=== PATIENT | female | born 1955 | race Hispanic/Latino ===

== ENCOUNTER 2017-12-28 07:41 | Emergency (ER) | payer MEDICARE ==
[~2017-12-28] VITALS: Ht 160 cm; Wt 82.1 kg
[~2017-12-28 07:41] MED LIST: COUMADIN10 MG PO; DILANTIN100 MG PO; HUMULIN-R100 UNITS/; LANTUS100 UNITS/ SC; OXYCONTIN30 MG PO; PHENOBARBITAL30 MG PO; PHENOBARBITAL60 MG PO; XARELTO10 MG PO; ZOLOFT25 MG; ZOLOFT50 MG PO
--- OUTSIDE RECORDS SUMMARY | 2017-12-28 07:47 | XMS REPORT | CCD ---
Author Author Auto Generated Organization [facility] Address Unknown Phone Unavailable Care Team Providers Care Photostat Operator Helper Name Role Phone Marta España CP Allergies, Adverse Reactions, Alerts Substance Reaction Status NKDA Canceled prochlorperazine Active Problem List Condition Effective Dates Status Anxiety Active Back pain Active Chest pain Active Deep vein thrombosis Active Depression Active Dysmenorrhea Active Fracture of knee-cap Active Hay fever Active Incontinence Active Migraine Active Nausea and vomiting Active Neck pain Active Osteoarthritis Active Panic disorder Active Pulmonary embolism Active Seizure Active Shoulder pain Active Stroke Active Suicide attempt Active UTI - Urinary tract infection Active Medications Medication Instructions Start Date End Date Status influenza virus 0.5 mL, Route: IM, Drug Form: SUSP, 05/31/2011 05/31/2011 Completed vaccine, inactivated Start date: 05/31/11 9:00:00, Stop date: 05/31/11 9:00:00 Benadryl Substitution Allowed 07/14/2011 Ordered Unknown Home Substitution Allowed 07/14/2011 Ordered Medication Dilantin Substitution Allowed 07/14/2011 Ordered Zanaflex Substitution Allowed 07/14/2011 Ordered hydromorphone 0.5 mg, 0.25 mL, Route: IVP, Drug 07/15/2011 07/15/2011 Completed form: INJ, ONCE, Priority: STAT, Start date: 07/15/11 0:02:00, Stop date: 07/15/11 0:02:00 Unknown Home Substitution Allowed 07/14/2011 Ordered Medication Lyrica Substitution Allowed 07/14/2011 Ordered ondansetron 4 mg, 2 mL, Route: IVP, Drug form: 07/14/2011 07/14/2011 Completed INJ, ONCE, Priority: STAT, Start date: 07/14/11 20:30:00, Stop date: 07/14/11 20:30:00 Unknown Home Substitution Allowed 07/14/2011 Ordered Medication ondansetron 4 mg, Route: IVP, Drug form: INJ, 07/14/2011 07/14/2011 Completed ONCE, Priority: STAT, Start date: 07/14/11 18:16:00, Stop date: 07/14/11 18:16:00 aspirin 325 mg 325 mg, 1 tab, Route: PO, Drug 07/14/2011 07/14/2011 Completed tablet form: TAB, ONCE, Priority: STAT, Start date: 07/14/11 17:49:00, Stop date: 07/14/11 17:49:00 Lovenox 40 mg/0.4 mL 40 mg, SUB-Q, Daily, 5 mL, 07/15/2011 Ordered subcutaneous Substitution Allowed solution Coumadin 10 mg oral 10 mg, 1 tab, PO, Daily, 30 tab, 07/14/2011 Ordered tablet Substitution Allowed, TAB Lovenox 80 mg/0.8 mL 80 mg, 0.8 ml, SUB-Q, Daily, 4 mL, 07/14/2011 07/19/2011 Ordered subcutaneous Substitution Allowed, SOLN solution Lovenox 80 mg, 0.8 mL, Route: IV, Drug 07/14/2011 07/15/2011 Deleted form: INJ, ONCE, Start date: 07/14/11 23:02:00, Stop date: 07/14/11 23:02:00 hydromorphone 1 mg, 0.5 mL, Route: IVP, Drug 07/14/2011 07/14/2011 Completed form: INJ, ONCE, Priority: STAT, Start date: 07/14/11 17:28:00, Stop date: 07/14/11 17:28:00 [place] 5/325 oral 2 tab, Route: PO, Drug Form: TAB, 07/14/2011 07/14/2011 Completed tablet ONCE, Start date: 07/14/11 19:23:00, Stop date: 07/14/11 19:23:00 Lovenox 80 mg, Route: SUB-Q, ONCE, Start 07/15/2011 07/15/2011 Completed date: 07/15/11 0:07:00, Stop date: 07/15/11 0:07:00 Immunizations Vaccine Date Status influenza virus vaccine, inactivated 05/31/2011 Not Done Vital Signs Most recent to oldest [Reference Range]: 1 Height 160.02 cm (07/14/2011 16:45:00) Weight 72.727 kg (07/14/2011 16:45:00) Results CHEMISTRY Most recent to oldest [Reference Range]: 1 Sodium Lvl [135-145 mEq/L] 139 mEq/L (07/14/2011:29:00) Potassium Lvl [3.5-5.1 mEq/L] 4.2 mEq/L (07/14/2011::00) Chloride Lvl [95-109 mEq/L] 102 mEq/L (07/14/2011::00) CO2 [24-32 mEq/L] 25 mEq/L (07/14/2011::00) AGAP [10.0-20.0 mEq/L] 16.2 mEq/L (07/14/2011::00) Creatinine Lvl [0.5-1.4 mg/dL] 0.7 mg/dL (07/14/2011::00) BUN [7-22 mg/dL] 18 mg/dL (07/14/2011::00) Glucose Lvl [70-99 mg/dL] 95 mg/dL 1 (07/14/2011::00) Calcium Lvl [8.5-10.5 mg/dL] 9.0 mg/dL (07/14/2011:29:00) Lipase Lvl [73-393 U/L] 107 U/L (07/14/2011:30:00) Total CK [12-191 U/L] 39 U/L (07/14/2011::) Troponin-I [0.00-0.40 ng/mL] <0.02 ng/mL (07/14/2011::00) Myoglobin [25-72 ng/mL] 10 ng/mL *LOW* (07/14/2011:29:00) Etoh (%) <.003 % 2 *NA* (07/14/2011::) Ethanol Lvl <3 mg/dL 3 *NA* (07/14/2011:29:00) 1Interpretive Data: Adult reference range values reflect the clinical guidelinesof the [place] [employer]. 2Interpretive Data: Negative Range: <0.003%Toxic Range: >0.25% 3Interpretive Data: Negative Range: <3 mg/dLToxic Range: >250 mg/dL HEMATOLOGY Most recent to oldest [Reference Range]: 1 WBC [3.7-10.4 K/CMM] 14.1 K/CMM *HI* (07/14/2011::00) RBC [4.20-5.40 M/CMM] 4.29 M/CMM (07/14/2011::) Hgb [12.0-16.0 g/dL] 13.6 g/dL (07/14/2011::) Hct [36.0-48.0 %] 39.7 % (07/14/2011:) MCV [81.0-99.0 fL] 92.5 fL (07/14/2011::) MCH [27.0-31.0 pg] 31.7 pg *HI* (07/14/2011) MCHC [32.0-36.0 g/dL] 34.3 g/dL (07/14/2011::) RDW [11.5-14.5 %] 13.1 % (07/14/2011::) Platelet [133-450 K/CMM] 286 K/CMM (07/14/2011::00) MPV [7.4-10.4 fL] 8.0 fL (07/14/2011::) Segs [45.0-75.0 %] 74.2 % (07/14/2011::) Lymphocytes [20.0-40.0 %] 20.3 % (07/14/2011::) Monocytes [2.0-12.0 %] 3.9 % (07/14/2011::) Eosinophils [0.0-4.0 %] 1.6 % (07/14/2011::) Basophils [0.0-1.0 %] 0.0 % (07/14/2011::) Segs-Bands # [1.5-8.1 K/CMM] 10.5 K/CMM *HI* (07/14/2011 17:29:00) Lymphocytes # [1.0-5.5 K/CMM] 2.9 K/CMM (07/14/2011 17:29:00) Monocytes # [0.0-0.8 K/CMM] 0.5 K/CMM (07/14/2011 17:29:00) Eosinophils # [0.0-0.5 K/CMM] 0.2 K/CMM (07/14/2011 17:29:00) Basophils # [0.0-0.2 K/CMM] 0.0 K/CMM (07/14/2011 17:29:00) RBC Morph Normal (07/14/2011 17:29:00) Plt Morph Normal (07/14/2011 17:29:00) PT [12.0-14.7 seconds] 12.5 seconds (07/14/2011 17:29:00) INR [0.85-1.17] 0.93 4 (07/14/2011 17:29:00) PTT [22.9-35.8 seconds] 22.9 seconds 5 (07/14/2011 17:29:00) 4Interpretive Data: RECOMMENDED RANGES FOR PROTIME INR: 2.0-3.0 for most medical and surgical thromboembolic states. 2.5-3.5 for artificial heart valves and recurrent embolism.INR SHOULD BE USED ONLY FOR PATIENTS ON STABLE ANTICOAGULANT THERAPY. 5Interpretive Data: Heparin Therapeutic Range: 57 - 92 Seconds IMMUNOLOGY Most recent to oldest [Reference Range]: 1 CDC-HIV 1/2 Ab [Negative] Negative *NA* (07/14/2011 16:52:00)
--- OUTSIDE RECORDS SUMMARY | 2017-12-28 07:47 | XMS REPORT | Summary of Care ---
Author Author [facility] Organization [facility] Address Unknown Phone Unavailable Encounter [facility] Vaibhav(ROBB) [id number] Date(s): 05/28/16 - 05/29/16 [facility] [address] [place] [address]- [phone] Discharge Diagnosis: Urinary tract infection Discharge Disposition: Home or Self Care Attending Physician: Eugene Alvarez DO Vital Signs 1 2 3 Most recent to oldest [Reference Range]: 160.02 cm (05/28/16 5:52 PM) Height 98.4 DegF (05/29/16 2:05 AM) 98.6 DegF (05/28/16 5:52 PM) Temperature Oral [96.4-99.1 DegF] 117/61 mmHg (05/29/16 2:05 AM) 127/65 mmHg (05/28/16 10:33 PM) 144/67 mmHg *HI* (05/28/16 9:31 PM) Blood Pressure [90-140/60-90 mmHg] 16 BRMIN (05/29/16 2:05 AM) 15 BRMIN (05/28/16 10:33 PM) 15 BRMIN (05/28/16 9:31 PM) Respiratory Rate [14-20 BRMIN] 60 bpm (05/28/16 9:31 PM) 77 bpm (05/28/16 5:52 PM) Peripheral Pulse Rate [60-100 bpm] 63.636 kg (05/28/16 5:52 PM) Weight 24.85 m2 (05/28/16 5:52 PM) Body Mass Index Problem List Condition Effective Dates Status Health Status Informant Anxiety(Confirmed) Active Back pain(Confirmed) Active Chest Active pain(Confirmed) Deep vein Active thrombosis(Confirmed ) Depression(Confirmed Active ) Diabetes(Confirmed) Resolved Dysmenorrhea(Confirm Active ed) Epileptic Resolved seizure(Confirmed) Fracture of Active knee-cap(Confirmed) Hay fever(Confirmed) Active HTN Resolved (hypertension)(Confi rmed) Incontinence(Confirm Active ed) Colon Resolved cancer(Confirmed) Migraine(Confirmed) Active Nausea and Active Acute ; vomiting(Confirmed) Neck pain(Confirmed) Active Osteoarthritis(Confi Active rmed) Panic Active disorder(Confirmed) Pulmonary Active embolism(Confirmed) Seizure(Confirmed) Active Shoulder Active pain(Confirmed) Sleep Resolved apnea(Confirmed) Stroke(Confirmed) Active Suicide Active attempt(Confirmed) UTI - Urinary tract Active infection(Confirmed) Allergies, Adverse Reactions, Alerts Substance Reaction Severity Status prochlorperazine Active Medications cefTRIAXone 1 gm, Route: IVPB, Drug form: PDR/INJ, ONCE, Dosing Weight 63.636, kg, Priority: STAT, Start date: 05/28/16 23:04:00 CDT, Stop date: 05/28/16 23:04:00 CDT Start Date: 05/28/16 Stop Date: 05/28/16 Status: Completed ciprofloxacin 400 mg, Route: IVPB, ONCE, Dosing Weight 63.636, kg, Priority: STAT, Start date: 05/28/16 23:59:00 CDT, Stop date: 05/28/16 23:59:00 CDT Start Date: 05/28/16 Stop Date: 05/29/16 Status: Completed ciprofloxacin 500 mg oral tablet 500 mg=1 tab, PO, Q12H, X 10 day, # 20 tab, 0 Refill(s) Start Date: 05/29/16 Stop Date: 06/08/16 Status: Ordered diphenhydrAMINE 25 mg, Route: IVP, ONCE, Dosing Weight 63.636, kg, Priority: STAT, Start date: 0 05/28/16 23:59:00 CDT, Stop date: 05/28/16 23:59:00 CDT Start Date: 05/28/16 Stop Date: 05/29/16 Status: Completed morphine Sulfate 4 mg, Route: IVP, ONCE, Dosing Weight 63.636, kg, Priority: STAT, Start date: 20:49:00 CDT, Stop date: 05/28/16 20:49:00 CDT Start Date: 05/28/16 Stop Date: 05/28/16 Status: Completed morphine Sulfate 4 mg, Route: IVP, ONCE, Dosing Weight 63.636, kg, Priority: STAT, Start date: 22:22:00 CDT, Stop date: 05/28/16 22:22:00 CDT Start Date: 05/28/16 Stop Date: 05/28/16 Status: Completed ondansetron 4 mg, Route: IVP, Drug form: INJ, ONCE, Dosing Weight 63.636, kg, Priority: STAT , Start date: 05/28/16 20:49:00 CDT, Stop date: 05/28/16 20:49:00 CDT Start Date: 05/28/16 Stop Date: 05/28/16 Status: Completed ondansetron 4 mg, Route: IVP, Drug form: INJ, ONCE, Dosing Weight 63.636, kg, Priority: STAT , Start date: 05/28/16 22:22:00 CDT, Stop date: 05/28/16 22:22:00 CDT Start Date: 05/28/16 Stop Date: 05/28/16 Status: Completed predniSONE 60 mg, Route: PO, Drug form: TAB, ONCE, Dosing Weight 63.636, kg, Priority: STAT , Start date: 05/28/16 23:59:00 CDT, Stop date: 05/28/16 23:59:00 CDT Start Date: 05/28/16 Stop Date: 05/29/16 Status: Completed Saline Flush 0.9% 10 mL, Route: IVP, Drug Form: INJ, Dosing Weight 72.727, kg, PRN, PRN Line Flush , Start date: 05/28/16 17:54:00 CDT, Duration: 30 day, Stop date: 06/27/16 17:53 :00 CDT Notes: (Same as: BD Posiflush) Start Date: 05/28/16 Stop Date: 05/29/16 Status: Discontinued tramadol 50 mg oral tablet 50 mg, Route: PO, Drug form: TAB, ONCE, Dosing Weight 63.636, kg, Priority: STAT , Start date: 05/29/16 1:57:00 CDT, Stop date: 05/29/16 1:57:00 CDT Start Date: 05/29/16 Stop Date: 05/29/16 Status: Completed tramadol 50 mg oral tablet 50 mg=1 tab, PO, Q12H, PRN Pain, X 10 day, # 20 tab, 0 Refill(s) Start Date: 05/29/16 Stop Date: 06/08/16 Status: Ordered Results ELECTROLYTES Most recent to 1 oldest [Reference Range]: Sodium Lvl [135-145 141 mEq/L mEq/L] (05/28/16 6:19 PM) Potassium Lvl 3.3 mEq/L [3.5-5.1 mEq/L] *LOW* (05/28/16 6:19 PM) Chloride Lvl [95-109 104 mEq/L mEq/L] (05/28/16 6:19 PM) CO2 [24-32 mEq/L] 23 mEq/L *LOW* (05/28/16 6:19 PM) AGAP [10.0-20.0 17.3 mEq/L mEq/L] (05/28/16 6:19 PM) CHEM PANEL Most recent to 1 oldest [Reference Range]: Creatinine Lvl 0.90 mg/dL [0.50-1.40 mg/dL] (05/28/16 6:19 PM) eGFR 70 mL/min/1.73m2 1 *NA* (05/28/16 6:19 PM) BUN [7-22 mg/dL] 22 mg/dL (05/28/16 6:19 PM) B/C Ratio [6-25] 24 (05/28/16 6:19 PM) Glucose Lvl [70-99 152 mg/dL mg/dL] *HI* (05/28/16 6:19 PM) Total Protein 7.8 g/dL [6.4-8.4 g/dL] (05/28/16 6:19 PM) Albumin Lvl [3.5-5.0 3.4 g/dL g/dL] *LOW* (05/28/16 6:19 PM) Globulin [2.7-4.2 4.4 g/dL g/dL] *HI* (05/28/16 6:19 PM) A/G Ratio [0.7-1.6] 0.8 (05/28/16 6:19 PM) Calcium Lvl 8.6 mg/dL [8.5-10.5 mg/dL] (05/28/16 6:19 PM) ALT [0-65 unit/L] 21 unit/L (05/28/16 6:19 PM) AST [0-37 unit/L] 15 unit/L (05/28/16 6:19 PM) Alk Phos [39-136 90 unit/L unit/L] (05/28/16 6:19 PM) Bili Total [0.2-1.3 0.3 mg/dL mg/dL] (05/28/16 6:19 PM) Lipase Lvl [73-393 83 unit/L unit/L] (05/28/16 6:19 PM) 1Result Comment: The eGFR is calculated using the CKD-EPI formula. In most young, healthy individuals the eGFR will be >90 mL/min/1.73m2. The eGFR declines with age. An eGFR of 60-89 may be normal in some populations, particularly the elderly, for whom the CKD-EPI formula has not been extensively validated. Use of the eGFR is not recommended in the following populations: Individuals with unstable creatinine concentrations, including patients and those with serious co-morbid conditions. Patients with extremes in muscle mass or diet. The data above are obtained from the National Kidney Disease Education Program ( NKDEP) which additionally recommends that when the eGFR is used in patients with extremes of body mass index for purposes of drug dosing, the eGFR should be mul tiplied by the estimated BMI. CARDIAC ENZYMES Most recent to 1 oldest [Reference Range]: Total CK [12-191 141 unit/L unit/L] (05/28/16 6:19 PM) CK MB [0.5-3.6 1.8 ng/mL ng/mL] (05/28/16 6:19 PM) CK MB Index 1.3 [0.0-2.5] (05/28/16 6:19 PM) Troponin-I <0.02 ng/mL [0.00-0.40 ng/mL] (05/28/16 6:19 PM) URINE AND STOOL Most recent to 1 oldest [Reference Range]: UA Turbidity [Clear] Marked *ABN* (05/28/16 9:30 PM) UA Color [Yellow] Yellow *NA* (05/28/16 9:30 PM) UA pH [5.0-8.0] 6.0 (4/9/17 9:30 PM) UA Spec Grav 1.018 [<=1.030] (05/28/16 9:30 PM) UA Glucose [Negative Negative mg/dL mg/dL] *NA* (05/28/16 9:30 PM) UA Blood [Negative] Large *ABN* (05/28/16 9:30 PM) UA Ketones [Negative Negative mg/dL mg/dL] *NA* (05/28/16 9:30 PM) UA Protein [Negative 30 mg/dL mg/dL] *ABN* (05/28/16 9:30 PM) UA Urobilinogen <=1.0 mg/dL [0.1-1.0 mg/dL] *NA* (05/28/16 9:30 PM) UA Bili [Negative] Negative *NA* (05/28/16 9:30 PM) UA Leuk Est Large [Negative] *ABN* (05/28/16 9:30 PM) UA Nitrite Positive [Negative] *ABN* (05/28/16 9:30 PM) UA WBC [0-5 /HPF] 10 /HPF *HI* (05/28/16 9:30 PM) UA RBC [0-2 /HPF] >182 /HPF *HI* (05/28/16 9:30 PM) UA Bacteria [None Many /HPF Seen /HPF] *ABN* (05/28/16 9:30 PM) UA Sq Epi [Few /LPF] Many /LPF *ABN* (05/28/16 9:30 PM) UA Mucus [None Seen Few /LPF /LPF] *NA* (05/28/16 9:30 PM) HEMATOLOGY Most recent to 1 oldest [Reference Range]: WBC [3.7-10.4 K/CMM] 9.3 K/CMM (05/28/16 6:19 PM) RBC [4.20-5.40 4.21 M/CMM M/CMM] (05/28/16 6:19 PM) Hgb [12.0-16.0 g/dL] 13.3 g/dL (05/28/16 6:19 PM) Hct [36.0-48.0 %] 38.9 % (05/28/16 6:19 PM) MCV [80.0-98.0 fL] 92.4 fL (05/28/16 6:19 PM) MCH [27.0-31.0 pg] 31.6 pg *HI* (05/28/16:19 PM) MCHC [32.0-36.0 34.2 g/dL g/dL] (05/28/16 6:19 PM) RDW [11.5-14.5 %] 13.3 % (05/28/16:19 PM) Platelet [133-450 258 K/CMM K/CMM] (05/28/16:19 PM) MPV [7.4-10.4 fL] 8.2 fL (05/28/16:19 PM) Segs [45.0-75.0 %] 57.8 % (05/28/16:19 PM) Lymphocytes 31.0 % [20.0-40.0 %] (05/28/16:19 PM) Monocytes [2.0-12.0 5.6 % %] (05/28/16:19 PM) Eosinophils [0.0-4.0 4.7 % %] *HI* (05/28/16:19 PM) Basophils [0.0-1.0 0.9 % %] (05/28/16:19 PM) Segs-Bands # 5.4 K/CMM [1.5-8.1 K/CMM] (05/28/16 6:19 PM) Lymphocytes # 2.9 K/CMM [1.0-5.5 K/CMM] (05/28/16 6:19 PM) Monocytes # [0.0-0.8 0.5 K/CMM K/CMM] (05/28/16 6:19 PM) Eosinophils # 0.4 K/CMM [0.0-0.5 K/CMM] (05/28/16 6:19 PM) Basophils # [0.0-0.2 0.1 K/CMM K/CMM] (05/28/16 6:19 PM) PT [12.0-14.7 13.9 seconds seconds] (05/28/16:19 PM) INR [0.85-1.17] 1.05 (05/28/16 6:19 PM) PTT [22.9-35.8 29.9 seconds seconds] (05/28/16 6:19 PM) Immunizations Given and Recorded Vaccine Date Status Refusal Reason influenza virus vaccine, inactivated 11/29/11 Given Procedures Procedure Date Related Diagnosis Body Site section Social History Social History Type Response Smoking Status Never smoker; Exposure to Tobacco Smoke None; Cigarette Smoking Last 365 Days No; Reg Smoking Cessation Counseling No Assessment and Plan No data available for this section
--- OUTSIDE RECORDS SUMMARY | 2017-12-28 07:47 | XMS REPORT ---
Author [facility] Address Unknown Phone Unavailable Care Team Providers Care Aeronautics Teacher Name Role Phone Unavailable Unavailable Payers Payer Name Policy Type Policy Number Effective Date Expiration Date Problems This patient has no known problems. Allergies, Adverse Reactions, Alerts Allergy Name Allergy Type Status Severity Reaction(s) Onset Date Inactive Date Treating Clinician Comments No Known Allergies DA Active [place] 2017-12-26 00:00:00 prochlorperazine maleate DA Active [place] 2017-10-18 00:00:00 ceftriaxone DA Active [place] 2017-10-18 00:00:00 Medications This patient has no known medications. Encounters Start Date/Time End Date/Time Encounter Type Admission Type Attending Clinicians Care Facility Care Department Encounter ID 2016-12-28 15:47:42 2016-12-28 15:47:42 Emergency [facility] [id number] 2016-12-28 13:14:25 2016-12-28 13:14:25 Emergency [facility] [id number] 2016-12-28 13:10:44 2016-12-28 13:10:44 Emergency [facility] [id number] 2016-12-28 12:55:27 2016-12-28 12:55:27 Emergency [facility] [id number]
[2017-12-28] MEDS ORDERED: HYDROCODONE/APAP 10MG-325MG TAB PO NR (08:15)
[2017-12-28] MEDS ORDERED: SODIUM CHLORIDE 0.9% 500ML 500 ML IV ONE (08:15)
[2017-12-28 08:39] LABS: BASOPHILS # (AUTO) 0.1 (0.0-0.1); BASOPHILS % 0.7 % (0.0-1.0); EOSINOPHILS # (AUTO) 0.4 (0.0-0.4); EOSINOPHILS % 6.6 % (0.0-6.0); HEMATOCRIT 41.2 % (34.2-44.1); HEMOGLOBIN 13.7 g/dL (12.0-16.0); LYMPHOCYTES # (AUTO) 3.1 (1.0-3.2); LYMPHOCYTES % 46.6 % (18.0-39.1); MEAN CORPUSCULAR HEMOGLOBIN 31.7 pg (28-32); MEAN CORPUSCULAR HGB CONC 33.3 g/dL (31-35); MEAN CORPUSCULAR VOLUME 95.4 fL (81-99); MONOCYTES # (AUTO) 0.4 (0.2-0.8); MONOCYTES % 6.4 % (4.4-11.3); NEUTROPHILS # (AUTO) 2.6 (2.1-6.9); NEUTROPHILS % 39.6 % (38.7-80.0); PLATELET COUNT 262 x10e3/uL (140-360); RED BLOOD COUNT 4.32 x10e6/uL (3.6-5.1); RED CELL DISTRIBUTION WIDTH 12.6 % (11.7-14.4)
[2017-12-28 08:59] LABS: ALANINE AMINOTRANSFERASE 17 IU/L (0-55); ALBUMIN 3.5 g/dL (3.5-5.0); ALBUMIN/GLOBULIN RATIO 0.8 (0.8-2.0); ALKALINE PHOSPHATASE 73 IU/L (40-150); BLOOD UREA NITROGEN 16 mg/dL (7-26); BUN/CREATININE RATIO 21 (6-25); CALCIUM 9.4 mg/dL (8.4-10.2); CARBON DIOXIDE 22 mmol/L (22-29); CHLORIDE 107 mmol/L (98-107); CREATINE KINASE 118 IU/L (29-168); CREATININE, SERUM 0.78 mg/dL (0.57-1.11); EST GLOMERULAR FILTRATION RATE > 60 ML/MIN (60-); GLUCOSE 145 mg/dL (74-118); MAGNESIUM 2.3 MG/DL (1.3-2.1); SODIUM 139 mmol/L (136-145)
[2017-12-28 09:18] LABS: INR 2.33; PROTHROMBIN TIME 27.3 seconds (11.9-14.5)
[2017-12-28 09:19] LABS: PARTIAL THROMBOPLASTIN TIME 31.9 seconds (23.8-35.5)
[2017-12-28] MEDS ORDERED: HYDROCODON-ACE1 EAC9 (09:23)
[2017-12-28] MEDS ORDERED: PHENAZOPYRIDIN100 MG PO (09:23)
[2017-12-28] MEDS ORDERED: MAGNESIUM OXID400 MG PO (09:23)
[2017-12-28] MEDS ORDERED: AMBIEN10 MG PO (09:23)
[2017-12-28] MEDS ORDERED: PAROXETINE HCL20 MG PO (09:23)
[2017-12-28] MEDS ORDERED: PANTOPRAZOLE SO40 MG PO (09:23)
--- NOTE | 2017-12-28 09:47 | Diagnostic Imaging Report ---
PROCEDURE: X-RAY CHEST, TWO VIEWS COMPARISON: None. INDICATIONS: CHEST PAIN FINDINGS: LUNGS: No consolidations or edema. PLEURA: No effusions or pneumothorax. HEART & MEDIASTINUM: The heart is within normal size-limits. Left-sided subclavian approach chest port in appropriate location. BONES & SOFT TISSUES: No acute findings. Degenerative changes of these line. CONCLUSION: No acute thoracic abnormality. Ren Alexandre D.O. Dictated by: Ren Alexandre D.O. on 12/28/2017 at 9:55 Electronically approved by: Ren Alexandre D.O. on 12/28/2017 at 9:55
[2017-12-28 11:03] LABS: CLARITY,URINE SL CLOUDY (CLEAR); COLOR,URINE YELLOW (YELLOW)
[2017-12-28 11:04] LABS: BILIRUBIN,URINE NEGATIVE (NEGATIVE); KETONES,URINE NEGATIVE (NEGATIVE); LEUKOCYTE ESTERASE ,URINE 1+ (NEGATIVE); NITRITE,URINE POSITIVE (NEGATIVE); PROTEIN,URINE DIPSTICK NEGATIVE (NEGATIVE); URINE UROBILINOGEN 0.2 mg/dL (0.2 - 1)
--- NOTE | 2017-12-28 11:46 | Diagnostic Imaging Report ---
EXAMINATION: CT scan of the chest with contrast. TECHNIQUE: Helical CT images of the chest were performed from the lung apices to the level of the adrenal glands after the intravenous administration of 100 cc of Isovue 300. Coronal and sagittal reformatted images were obtained.Dose modulation, iterative reconstruction, and/or weight based adjustment of the mA/kV was utilized to reduce the radiation dose to as low as reasonably achievable. COMPARISON: None. CLINICAL HISTORY:Chest pain and fall DISCUSSION: LINES/TUBES: None. LUNGS AND AIRWAYS: Mosaic attenuation likely due to hypoperfusion. No concerning nodule or mass. No consolidation. No pulmonary embolism PLEURA: No pneumothorax or pleural effusions. HEART AND MEDIASTINUM: The thyroid gland is normal. The heart and pericardium are within normal limits. LYMPH NODES: There is no mediastinal, hilar or axillary lymphadenopathy. ABDOMEN: Refer to additional report. BONES AND SOFT TISSUES: No acute bony abnormalities. IMPRESSION: No pulmonary embolism. Signed by: Dr. Se Ruiz M.D. on 12/28/2017 11:43 AM
[2017-12-28 11:48] LABS: BACTERIA,URINE MODERATE /HPF; EPITHELIAL CELLS,URINE FEW /LPF; RBC,URINE 21-50 /HPF (0-5)
--- NOTE | 2017-12-28 11:56 | Diagnostic Imaging Report ---
EXAMINATION: CT of the abdomen and pelvis with contrast. TECHNIQUE: Helical CT images of the abdomen and pelvis were performed from the lung bases to the lesser trochanters after the intravenous administration of 150 cc of Isovue 300 and the oral administration of Redicat. Coronal and sagittal reformatted images were obtained.Dose modulation, iterative reconstruction, and/or weight based adjustment of the mA/kV was utilized to reduce the radiation dose to as low as reasonably achievable. COMPARISON: None. CLINICAL HISTORY:Flank pain and hematuria DISCUSSION: ABDOMEN/PELVIS: LOWER THORAX:Unremarkable. HEPATOBILIARY: No focal hepatic lesions. No intra-or extrahepatic biliary ductal dilation. Cholecystectomy. SPLEEN: No splenomegaly. PANCREAS: No focal masses or ductal dilatation. ADRENALS: No adrenal nodules. KIDNEYS/URETERS: No hydronephrosis, stones, or solid mass lesions. PELVIC ORGANS/BLADDER: Hysterectomy. PERITONEUM/RETROPERITONEUM: No free air or fluid. LYMPH NODES: No intra-abdominal, retroperitoneal, pelvic or inguinal lymphadenopathy. VESSELS: Minimal vascular calcifications. GI TRACT: No distention or wall thickening. BONES AND SOFT TISSUE: No bony destructive lesions. No soft tissue abnormalities. IMPRESSION: No acute CT finding. Signed by: Dr. Se Ruiz M.D. on 12/28/2017 11:53 AM
[2017-12-28] MEDS ORDERED: IOPAMIDOL 370 MG/ML 200 ML INFUS..BTL INJ ONE (12:08)
[2017-12-28] MEDS ORDERED: SODIUM CHLORIDE 0.9% 50ML 50 ML ONE (12:08)
[2017-12-28 13:35] VITALS: BP 136/78
== END 2017-12-28 13:45 | disposition home or self-care (01) ==
LOC: ER 07:41
DX: R07.89 Other chest pain (principal); N30.91 Cystitis, unspecified with hematuria; I10 Essential (primary) hypertension; E11.9 Type 2 diabetes mellitus without complications; Z85.038 Personal history of other malignant neoplasm of large intestine
CPT/HCPCS: 36415; 71046; 71260; 74177; 80053; 80185; 81001; 82550; 82553; 83735; 84484; 85025; 85610; 85730; 87086; 93005; 99284; J7040; Q9967

== ENCOUNTER 2018-03-28 11:50 | Inpatient (IN) | payer MEDICARE ==
[~2018-03-28] VITALS: Ht 160 cm; Wt 78.1 kg
[~2018-03-28 11:50] MED LIST changes: +AMBIEN10 MG PO; +HYDROCODON-ACE1 EAC9 PO; +MAGNESIUM OXID400 MG PO; +PANTOPRAZOLE SO40 MG PO; +PAROXETINE HCL20 MG PO; +PHENAZOPYRIDIN100 MG PO
--- OUTSIDE RECORDS SUMMARY | 2018-03-28 11:54 | XMS REPORT | Continuity of Care Document ---
Author Author [facility] Interface Address Unknown Phone Unavailable Problems Problem Status Onset Date Classification Date Reported Comments Source COUMADIN TOXICITY Active 01/10/2018 [facility] NOSEBLEED/COUGHING UP BLOOD Active 01/10/2018 [facility] Discharge Diagnosis: Urinary tract infection 05/29/2016 06/01/2016 [facility] ABD PAIN Active 05/28/2016 [facility] SENT BY Active 07/14/2011 [facility] Anxiety Active Problem 07/17/2011 [facility] Back pain Active Problem 07/17/2011 [facility] Chest pain Active Problem 07/17/2011 [facility] Deep vein thrombosis Active Problem 07/17/2011 [facility] Depression Active Problem 07/17/2011 [facility] Dysmenorrhea Active Problem 07/17/2011 [facility] Fracture of knee-cap Active Problem 07/17/2011 [facility] Hay fever Active Problem 07/17/2011 [facility] Incontinence Active Problem 07/17/2011 [facility] Migraine Active Problem 07/17/2011 [facility] Nausea and vomiting Active Problem 07/17/2011 [facility] Neck pain Active Problem 07/17/2011 [facility] Osteoarthritis Active Problem 07/17/2011 [facility] Panic disorder Active Problem 07/17/2011 [facility] Pulmonary embolism Active Problem 07/17/2011 [facility] Seizure Active Problem 07/17/2011 [facility] Shoulder pain Active Problem 07/17/2011 [facility] Stroke Active Problem 07/17/2011 [facility] Suicide attempt Active Problem 07/17/2011 [facility] UTI - Urinary tract infection Active Problem 07/17/2011 [facility] Anxiety Active Problem 06/01/2016 [facility] Back pain Active Problem 06/01/2016 [facility] Chest pain Active Problem 06/01/2016 [facility] Deep vein thrombosis Active Problem 06/01/2016 [facility] Depression Active Problem 06/01/2016 [facility] Diabetes Resolved Problem 06/01/2016 [facility] Dysmenorrhea Active Problem 06/01/2016 [facility] Epileptic seizure Resolved Problem 06/01/2016 [facility] Fracture of knee-cap Active Problem 06/01/2016 [facility] Hay fever Active Problem 06/01/2016 [facility] HTN (<span ID="[id number]</span>) Resolved Problem 06/01/2016 [facility] Incontinence Active Problem 06/01/2016 [facility] Colon cancer Resolved Problem 06/01/2016 [facility] Migraine Active Problem 06/01/2016 [facility] Nausea and vomiting Active Problem 06/01/2016 [facility] Neck pain Active Problem 06/01/2016 [facility] Osteoarthritis Active Problem 06/01/2016 [facility] Panic disorder Active Problem 06/01/2016 [facility] Pulmonary embolism Active Problem 06/01/2016 [facility] Seizure Active Problem 06/01/2016 [facility] Shoulder pain Active Problem 06/01/2016 [facility] Sleep apnea Resolved Problem 06/01/2016 [facility] Stroke Active Problem 06/01/2016 [facility] Suicide attempt Active Problem 06/01/2016 [facility] UTI - Urinary tract infection Active Problem 06/01/2016 [facility] POISONING BY ANTICOAGULANTS, ACCIDENTAL, Active [facility] Medications Medication Details Route Status Patient Instructions Ordering Provider Order Date Source tramadol hydrochloride 50 MG Oral Tablet 50 mg=1 tab, PO, Q12H, PRN Pain, X 10 day, # 20 tab, 0 Refill(s) Active 05/29/2016 [facility] tramadol hydrochloride 50 MG Oral Tablet 50 mg, Route: PO, Drug form: TAB, ONCE, Dosing Weight 63.636, kg, Priority: STAT, Start date: 05/29/16 1:57:00 CDT, Stop date: 05/29/16 1:57:00 CDT Inactive 05/29/2016 [facility] ciprofloxacin 500 mg oral tablet 500 mg=1 tab, PO, Q12H, X 10 day, # 20 tab, 0 Refill(s) Active 05/29/2016 [facility] Diphenhydramine 25 mg, Route: IVP, ONCE, Dosing Weight 63.636, kg, Priority: STAT, Start date: 05/28/16 23:59:00 CDT, Stop date: 05/28/16 23:59:00 CDT No Longer Active 05/29/2016 [facility] Prednisone 60 mg, Route: PO, Drug form: TAB, ONCE, Dosing Weight 63.636, kg, Priority: STAT, Start date: 05/28/16 23:59:00 CDT, Stop date: 05/28/16 23:59:00 CDT No Longer Active 05/29/2016 [facility] Ciprofloxacin 400 mg, Route: IVPB, ONCE, Dosing Weight 63.636, kg, Priority: STAT, Start date: 05/28/16 23:59:00 CDT, Stop date: 05/28/16 23:59:00 CDT No Longer Active 05/29/2016 [facility] Ceftriaxone 1 gm, Route: IVPB, Drug form: PDR/INJ, ONCE, Dosing Weight 63.636, kg, Priority: STAT, Start date: 05/28/16 23:04:00 CDT, Stop date: 05/28/16 23:04:00 CDT Inactive 05/29/2016 [facility] Ondansetron 4 mg, Route: IVP, Drug form: INJ, ONCE, Dosing Weight 63.636, kg, Priority: STAT, Start date: 05/28/16 22:22:00 CDT, Stop date: 05/28/16 22:22:00 CDT Inactive 05/29/2016 [facility] Morphine 4 mg, Route: IVP, ONCE, Dosing Weight 63.636, kg, Priority: STAT, Start date: 05/28/16 22:22:00 CDT, Stop date: 05/28/16 22:22:00 CDT Inactive 05/29/2016 [facility] Ondansetron 4 mg, Route: IVP, Drug form: INJ, ONCE, Dosing Weight 63.636, kg, Priority: STAT, Start date: 05/28/16 20:49:00 CDT, Stop date: 05/28/16 20:49:00 CDT Inactive 05/29/2016 [facility] Morphine 4 mg, Route: IVP, ONCE, Dosing Weight 63.636, kg, Priority: STAT, Start date: 05/28/16 20:49:00 CDT, Stop date: 05/28/16 20:49:00 CDT Inactive 05/29/2016 [facility] Saline Flush 0.9% 10 mL, Route: IVP, Drug Form: INJ, Dosing Weight 72.727, kg, PRN, PRN Line Flush, Start date: 05/28/16 17:54:00 CDT, Duration: 30 day, Stop date: 06/27/16 17:53:00 CDTNotes: (Same as: BD Posiflush) No Longer Active 05/28/2016 [facility] Lovenox 40 mg/0.4 mL subcutaneous solution 40 mg, SUB-Q, Daily, 5 mL, Substitution Allowed SUB-Q Active [place] 07/15/2011 [facility] Lovenox 80 mg, Route: SUB-Q, ONCE, Start date: 07/15/11 0:07:00, Stop date: 07/15/11 0:07:00 SUB-Q No Longer Active [place] 07/15/2011 [facility] hydromorphone 0.5 mg, 0.25 mL, Route: IVP, Drug form: INJ, ONCE, Priority: STAT, Start date: 07/15/11 0:02:00, Stop date: 07/15/11 0:02:00 IVP No Longer Active [place] 07/15/2011 [facility] Coumadin 10 mg oral tablet 10 mg, 1 tab, PO, Daily, 30 tab, Substitution Allowed, TAB PO Active [place] 07/15/2011 [facility] Lovenox 80 mg/0.8 mL subcutaneous solution 80 mg, 0.8 ml, SUB-Q, Daily, 4 mL, Substitution Allowed, SOLN SUB-Q Active [place] 07/15/2011 [facility] Lovenox 80 mg, 0.8 mL, Route: IV, Drug form: INJ, ONCE, Start date: 07/14/11 23:02:00, Stop date: 07/14/11 23:02:00 IV No Longer Active [place] 07/15/2011 [facility] ondansetron 4 mg, 2 mL, Route: IVP, Drug form: INJ, ONCE, Priority: STAT, Start date: 07/14/11 20:30:00, Stop date: 07/14/11 20:30:00 IVP No Longer Active [place] 07/15/2011 [facility] Jerome 5/325 oral tablet 2 tab, Route: PO, Drug Form: TAB, ONCE, Start date: 07/14/11 19:23:00, Stop date: 07/14/11 19:23:00 PO No Longer Active [place] 07/15/2011 [facility] Benadryl Substitution Allowed Active 07/14/2011 [facility] Unknown Home Medication Substitution Allowed Active 07/14/2011 [facility] Dilantin Substitution Allowed Active 07/14/2011 [facility] Zanaflex Substitution Allowed Active 07/14/2011 [facility] Unknown Home Medication Substitution Allowed Active 07/14/2011 [facility] Lyrica Substitution Allowed Active 07/14/2011 [facility] Unknown Home Medication Substitution Allowed Active 07/14/2011 [facility] ondansetron 4 mg, Route: IVP, Drug form: INJ, ONCE, Priority: STAT, Start date: 07/14/11 18:16:00, Stop date: 07/14/11 18:16:00 IVP No Longer Active [place] 07/14/2011 [facility] aspirin 325 mg tablet 325 mg, 1 tab, Route: PO, Drug form: TAB, ONCE, Priority: STAT, Start date: 07/14/11 17:49:00, Stop date: 07/14/11 17:49:00 PO No Longer Active [place] 07/14/2011 [facility] hydromorphone 1 mg, 0.5 mL, Route: IVP, Drug form: INJ, ONCE, Priority: STAT, Start date: 07/14/11 17:28:00, Stop date: 07/14/11 17:28:00 IVP No Longer Active [place] 07/14/2011 [facility] influenza virus vaccine, inactivated 0.5 mL, Route: IM, Drug Form: SUSP, Start date: 05/31/11 9:00:00, Stop date: 05/31/11 9:00:00 IM No Longer Active [facility] 05/31/2011 [facility] Allergies, Adverse Reactions, Alerts Substance Category Reaction Severity Reaction type Status Date Reported Comments Source prochlorperazine Assertion Drug allergy Active [facility] Immunizations Immunization Date Given Site Status Last Updated Comments Source influenza virus vaccine, inactivated 11/29/2011 Right deltoid completed [facility] influenza virus vaccine, inactivated 05/31/2011 Not Given [facility] Results Order Name Results Value Reference Range Date Interpretation Comments Source Shoulder series DX Shoulder series DX Exam: Right Shoulder series DX Clinical Indication: - shoulder pain, history of gastric malignancy Comparison: None FINDINGS: 3 views of the right shoulder are performed. No acute fracture identified. The glenohumeral and acromioclavicular joints are anatomically aligned. Moderate degenerative changes present in the acromioclavicular joint. The visualized scapula and clavicle are unremarkable. The soft tissues are unremarkable. No radiopaque foreign body. IMPRESSION: 1. No acute osseous abnormality of the right shoulder. 2. Moderate AC joint degenerative arthropathy. SL: JCHILD-PC 01/12/2018 - - Read by: Dilshad Mathias MD Dictated Date/time: 01/12/18 19:22 Electronically Signed by: Dilshad Mathias MD 01/12/18 19:22 FINAL REPORT [facility] Brain wo contrast CT Brain wo contrast CT CT HEAD WITHOUT CONTRAST Clinical Indication: - fall, L CARROLL, anticoagulated. Comparison: 05/30/2011 TECHNIQUE: CT images were obtained from the foramen magnum to the vertex without the use of intravenous contrast on a multidetector CT. CT imaging was performed with exposure control parameters to reduce radiation dose. Coronal and sagittal reconstructions were obtained. CT radiation dose DLP: 982.59 mGy-cm FINDINGS: There is no hemorrhage, extra-axial fluid collection, overt mass, midline shift or hydrocephalus. Moderate mucosal thickening is noted within the bilateral maxillary, bilateral ethmoid and left frontal sinuses. The mastoid air cells are clear. The calvarium and skull base are intact.Mild left frontal scalp soft tissue inflammatory changes. If clinical concern persists for acute pathology further evaluation with MRI brain can be obtained if warranted. IMPRESSION: No CT evidence of acute intracranial abnormality. SL: [id number] 01/10/2018 - - Read by: Constantin Mcnair MD Dictated Date/time: 01/11/18 00:01 Electronically Signed by: Constantin Mcnair MD 01/11/18 00:09 FINAL REPORT [facility] Chest Pulmonary Embolism CTA Chest Pulmonary Embolism CTA CT ANGIOGRAM OF THE CHEST WITH RECONSTRUCTION DATED 01/10/2018. CLINICAL INDICATION: Worsening chest pain and shortness of breath. Prior history of pulmonary embolism. COMPARISON: CT chest dated 05/28/2016 TECHNIQUE: A dynamic contrast-enhanced helical CT angiogram of the chest was performed using pulmonary embolism protocol with subsequent sagittal/coronal MIP and 3D reconstruction. A total of 100 cc of Omnipaque 300 was injected intravenously for the exam. CT imaging performed at this location utilizes radiation dose optimization techniques which include one or more of the following: -Automated exposure control -Adjustment of the mA and/or kV according to patient size -Use of iterative reconstruction technique CT Radiation Dose DLP 986 mGy-cm FINDINGS: PULMONARY ARTERIES: The pulmonary arteries appear to enhance normally. No low- density pulmonary artery filling defects are identified to suggest the CT diagnosis of acute pulmonary embolism. MEDIASTINUM: There is no CT evidence of a mediastinal mass or pathologically enlarged mediastinal lymph nodes. The thoracic aorta is normal in caliber and demonstrates no evidence of dissection. PLEURAL SPACES: No acute pleural space abnormalities are detected. LUNGS: The lungs appear clear of acute disease. Dependent atelectasis is noted. No suspicious pulmonary masses are identified. UPPER ABDOMEN: The included upper abdominal organs appear unremarkable. ADDITIONAL COMMENTS: None. IMPRESSION: 1. No CT evidence of acute pulmonary embolism. No acute CT abnormalities of the lungs, mediastinum or pleural spaces are detected. SL:131 01/10/2018 - - Read by: Luis Zhao MD Dictated Date/time: 01/11/18 00:01 Electronically Signed by: Luis Zhao MD 01/11/18 00:07 FINAL REPORT [facility] Ext Upper Venous Doppler Unilat US Ext Upper Venous Doppler Unilat US Ext Upper Venous Doppler Unilat US CLINICAL HISTORY: - pain. Right arm pain COMPARISON: none TECHNIQUE:Easton scale imaging, compression techniques and spectral analysis were utilized to evaluate right upper extremity from the internal jugular/right subclavian junction to the proximal brachial vein. FINDINGS: The jugular, subclavian, axillary and brachial veins are well- visualized and demonstrate normal signal and compressibility. The cephalic and basilic veins are also normally compressible. There is no evidence to suggest intraluminal thrombus. IMPRESSION: Negative right upper extremity venous Doppler. SL: MARQUIS-PC 01/10/2018 - - Read by: Jose Silverio MD Dictated Date/time: 01/10/18 22:09 Electronically Signed by: Jose Silverio MD 01/10/18 22:10 FINAL REPORT [facility] Chest 1view DX Chest 1view DX Patient Name: JESUS ASCENCIO : 1955; Age: 62 years y/o Female MR: [id number] Study: Chest 1view DX 01/10/2018 8:33 PM [employer] Ordering Physician: Clinical Indication: - vomit blood; Comparison: 05/28/2016 1 view chest Lungs are clear. Cardiomediastinal silhouette normal. No pleural effusion or pneumothorax. MediPort reservoir left chest wall with catheter entering the subclavian vein, its tip at the SVC. There are degenerative changes in the thoracic spine. No acute bony abnormality or lesion appreciated otherwise. No free air noted beneath the diaphragm. IMPRESSION: No acute findings. SL: EASTON-RENETTA 01/10/2018 - - Read by: Victor M Hooks MD Dictated Date/time: 01/10/18 21:25 Electronically Signed by: Victor M Hooks MD 01/10/18 21:26 FINAL REPORT [facility] URINE AND STOOL UA Urobilinogen <=1.0 mg/dL 0.1 - 1.0 05/29/2016 [facility] URINE AND STOOL UA Bacteria Many /HPF None Seen /HPF 05/29/2016 [facility] URINE AND STOOL UA Mucus Few /LPF None Seen /LPF 05/29/2016 [facility] URINE AND STOOL UA Bili Negative *NA* (05/28/16 9:30 PM) Negative 05/29/2016 [facility] URINE AND STOOL UA Blood Large *ABN* (05/28/16 9:30 PM) Negative 05/29/2016 [facility] URINE AND STOOL UA Ketones Negative mg/dL Negative mg/dL 05/29/2016 [facility] URINE AND STOOL UA Turbidity Marked *ABN* (05/28/16 9:30 PM) Clear 05/29/2016 [facility] URINE AND STOOL UA Color Yellow *NA* (05/28/16 9:30 PM) Yellow 05/29/2016 [facility] URINE AND STOOL UA Spec Grav 1.018 <=1.030 05/29/2016 [facility] URINE AND STOOL UA Glucose Negative mg/dL Negative mg/dL 05/29/2016 [facility] URINE AND STOOL UA pH 6.0 5.0 - 8.0 05/29/2016 [facility] URINE AND STOOL UA Protein 30 mg/dL Negative mg/dL 05/29/2016 [facility] URINE AND STOOL UA WBC 10 /HPF 0 - 5 05/29/2016 [facility] URINE AND STOOL UA RBC null 0 - 2 05/29/2016 [facility] URINE AND STOOL UA Nitrite Positive *ABN* (05/28/16 9:30 PM) Negative 05/29/2016 [facility] URINE AND STOOL UA Leuk Est Large *ABN* (05/28/16 9:30 PM) Negative 05/29/2016 [facility] URINE AND STOOL UA Sq Epi Many /LPF Few /LPF 05/29/2016 [facility] Chest Pulmonary Embolism CTA Chest Pulmonary Embolism CTA Clinical Indication: Shortness of Breath/ Here with c/o chest pressure abd pain, nausea and diarrhea that started today./? P.E. - [address] dose DLP 747.88 mGy-cm Comparison: CT of the chest performed 11/28/2011 TECHNIQUE: Sequential trans-axial images were obtained thru the chest and upper abdomen after administration of iodinated contrast. Coronal, 3-D MIP and sagittal reconstructions were obtained. 100 mL of Omnipaque was used for the exam. Dose: XXI=834.88 mGy-cm FINDINGS: LUNG PARENCHYMA AND PLEURA: Dependent atelectasis is seen at the lung bases. There is no focal lung consolidation, pleural effusion or pneumothorax. AIRWAY: The central airway is patent. MEDIASTINUM: No significant mediastinal lymphadenopathy. HEART: There are no significant coronary artery calcifications. The cardiac chambers are unremarkable. There is no pericardial effusion. VASCULAR STRUCTURES: There are no segmental pulmonary emboli noted. The main, right and left pulmonary arteries are within normal limits. The great vessels are unremarkable. The thoracic aorta demonstrates no aneurysmal dilatation nor aortic dissection. The superior vena cava is unremarkable. OSSEOUS STRUCTURES: Degenerative changes are identified within the visualized spine. VISUALIZED UPPER ABDOMEN: There is evidence of prior cholecystectomy within the visualized upper abdomen. There is diffuse low-attenuation within the liver, which is most likely due to hepatic steatosis. IMPRESSION: 1. No evidence of pulmonary embolism. 2. Dependent atelectasis within bilateral lower lobes. No focal lung consolidation, pleural effusion or pneumothorax. SL: KPATEL-M 05/29/2016 - - Read by: Howard Lezama MD Dictated Date/time: 05/29/16 01:15 Electronically Signed by: Howard Lezama MD 05/29/16 01:24 FINAL REPORT [facility] ED Abdomen/Pelvis IV contrast only CT ED Abdomen/Pelvis IV contrast only CT Patient Name: JESUS ASCENCIO : 1955; Age: 61 years y/o Female MR: [id number] Study: ED Abdomen/Pelvis IV contrast only CT 05/28/2016 8:34 PM CDT Ordering Physician: Eugene Alvarez DO Comparison: None CT Radiation Dose DLP mGy-cm Clinical Indication: Pain Post Trauma/ Here with c/o chest pressure abd pain, nausea and diarrhea that started today. / ? SBO - [address] dose DLP 1867.29 mGy-cm; Multiple computerized axial tomograms of the abdomen and pelvis were obtained after administration of IV contrast and without oral contrast. The lack of oral contrast limits diagnostic detail at the enteric tract and mesentery. 2-D sagittal and coronal reformation reconstruction images were obtained. A 4 mm noncalcified pulmonary nodule is noted at the dorsal lateral right lower lobe (series 5, image 2). Minimal groundglass and reticular opacity at the basal left lower lobe is noted which could represent scarring or volume loss. Thoracic and lumbar spondylosis are noted associated with degenerative arthropathy of the lower lumbar apophyseal joints. Diffuse fatty infiltration of the liver. Surgical clips are noted at the gallbladder fossa status post cholecystectomy. Compensatory dilatation of the biliary tree status post cholecystectomy is noted. Correlation with liver function tests to exclude an obstructive pattern is suggested. Diffuse fatty infiltration of the pancreas. A few scattered colo chepe diverticula are present at the abdomen associated with mild constipation. Tiny fat filled umbilical hernia. Liver, kidneys, spleen, pancreas and adrenal glands have an otherwise normal CT appearance. No adenopathy, abdominal mass or free fluid. Small bowel caliber is normal. No pneumoperitoneum. The uterus is surgically absent. Venous vascular and arterial calcifications are noted at the pelvis. Surgical clips are noted at the right pelvic sidewall. Mild urinary bladder wall thickening is noted ventrally which may be accentuated by incomplete distention. Postoperative change is noted at the proximal sigmoid colon. The appendix is not visualized. No right lower quadrant inflammatory change. Tiny fat filled right spigelian hernia is noted without incarceration (series 5, image [id number]). No small bowel dilatation. No pelvic adenopathy or free fluid is noted. IMPRESSION: 1. No acute abnormality at the abdomen or pelvis. 2. Chronic appearing cystitis at the ventral aspect of the urinary bladder accentuated by incomplete distention. 3. Status post cholecystectomy and hysterectomy. Postoperative change at the proximal sigmoid colon. 4. No small bowel obstruction. 5.Tiny fat filled right spigelian hernia is noted without incarceration (series 5, image [id number]). Tiny fat filled umbilical hernia without incarceration. 6.A 4 mm noncalcified pulmonary nodule is noted at the dorsal lateral right lower lobe (series 5, image 2). 7. Diffuse fatty infiltration of the liver and pancreas. 8. Lower lumbar facet arthrosis. SL: PJOHNSON-PC 05/29/2016 - - Read by: David Parry MD Dictated Date/time: 05/29/16 01:18 Electronically Signed by: David Parry MD 05/29/16 01:28 FINAL REPORT [facility] CARDIAC ENZYMES Troponin-I null 0.00 - 0.40 05/28/2016 [facility] CARDIAC ENZYMES Total CK 141 unit/L 12 - 191 05/28/2016 [facility] CARDIAC ENZYMES CK MB 1.8 ng/mL 0.5 - 3.6 05/28/2016 [facility] CARDIAC ENZYMES CK MB Index 1.3 0.0 - 2.5 05/28/2016 [facility] CHEM PANEL eGFR 70 mL/min/1.73m2 05/28/2016 Result Comment: The eGFR is calculated using the [...] from the National Kid[employer] Disease Education Program (NKDEP) which additionally recommends that when the eGFR is used in patients with extremes of body mass index for purposes of drug dosing, the eGFR should be multiplied by the estimated BMI. [facility] CHEM PANEL AST 15 unit/L 0 - 37 05/28/2016 [facility] CHEM PANEL ALT 21 unit/L 0 - 65 05/28/2016 [facility] CHEM PANEL Albumin Lvl 3.4 g/dL 3.5 - 5.0 05/28/2016 [facility] CHEM PANEL Total Protein 7.8 g/dL 6.4 - 8.4 05/28/2016 [facility] CHEM PANEL Calcium Lvl 8.6 mg/dL 8.5 - 10.5 05/28/2016 [facility] CHEM PANEL A/G Ratio 0.8 0.7 - 1.6 05/28/2016 [facility] CHEM PANEL AGAP 17.3 meq/L 10.0 - 20.0 05/28/2016 [facility] CHEM PANEL Globulin 4.4 g/dL 2.7 - 4.2 05/28/2016 [facility] CHEM PANEL B/C Ratio 24 6 - 25 05/28/2016 [facility] CHEM PANEL Bili Total 0.3 mg/dL 0.2 - 1.3 05/28/2016 [facility] CHEM PANEL Alk Phos 90 unit/L 39 - 136 05/28/2016 [facility] CHEM PANEL Glucose Lvl 152 mg/dL 70 - 99 05/28/2016 [facility] CHEM PANEL Potassium Lvl 3.3 meq/L 3.5 - 5.1 05/28/2016 [facility] CHEM PANEL Chloride Lvl 104 meq/L 95 - 109 05/28/2016 [facility] CHEM PANEL Sodium Lvl 141 meq/L 135 - 145 05/28/2016 [facility] CHEM PANEL CO2 23 meq/L 24 - 32 05/28/2016 [facility] CHEM PANEL Creatinine Lvl 0.90 mg/dL 0.50 - 1.40 05/28/2016 [facility] CHEM PANEL BUN 22 mg/dL 7 - 22 05/28/2016 [facility] CHEM PANEL Lipase Lvl 83 unit/L 73 - 393 05/28/2016 [facility] HEMATOLOGY RDW 13.3 % 11.5 - 14.5 05/28/2016 [facility] HEMATOLOGY Platelet 258 K/CMM 133 - 450 05/28/2016 [facility] HEMATOLOGY MPV 8.2 fL 7.4 - 10.4 05/28/2016 [facility] MCHC 34.2 g/dL 32.0 - 36.0 05/28/2016 [facility] MCH 31.6 pg 27.0 - 31.0 05/28/2016 [facility] HEMATOLOGY Hgb 13.3 g/dL 12.0 - 16.0 05/28/2016 [facility] HEMATOLOGY MCV 92.4 fL 80.0 - 98.0 05/28/2016 [facility] HEMATOLOGY Hct 38.9 % 36.0 - 48.0 05/28/2016 [facility] HEMATOLOGY RBC 4.21 M/CMM 4.20 - 5.40 05/28/2016 [facility] HEMATOLOGY WBC 9.3 K/CMM 3.7 - 10.4 05/28/2016 [facility] HEMATOLOGY INR 1.05 0.85 - 1.17 05/28/2016 [facility] HEMATOLOGY PT 13.9 s 12.0 - 14.7 05/28/2016 [facility] HEMATOLOGY PTT 29.9 s 22.9 - 35.8 05/28/2016 [facility] HEMATOLOGY Basophils 0.9 % 0.0 - 1.0 05/28/2016 [facility] HEMATOLOGY Lymphocytes # 2.9 K/CMM 1.0 - 5.5 05/28/2016 [facility] HEMATOLOGY Eosinophils 4.7 % 0.0 - 4.0 05/28/2016 [facility] HEMATOLOGY Segs-Bands # 5.4 K/CMM 1.5 - 8.1 05/28/2016 [facility] HEMATOLOGY Eosinophils # 0.4 K/CMM 0.0 - 0.5 05/28/2016 [facility] HEMATOLOGY Basophils # 0.1 K/CMM 0.0 - 0.2 05/28/2016 [facility] HEMATOLOGY Monocytes # 0.5 K/CMM 0.0 - 0.8 05/28/2016 [facility] HEMATOLOGY Segs 57.8 % 45.0 - 75.0 05/28/2016 [facility] Lymphocytes 31.0 % 20.0 - 40.0 05/28/2016 [facility] HEMATOLOGY Monocytes 5.6 % 2.0 - 12.0 05/28/2016 [facility] Chest 1view DX Chest 1view DX Study: Chest 1view DX 05/28/2016 5:54 PM CDT Patient Name: JESUS ASCENCIO MR: [id number] : 1955; Age: 61 years y/o Female Ordering Physician: Volodymyr Barakat Clinical Indication: Chest pain. Comparison: 11/28/2011. FINDINGS LUNGS: The hyperinflated lungs are clear consolidation, pleural effusion, and pneumothorax. Indeterminate rounded densities overlying the left parahilar region likely representing artifact from foreign bodies outside the patient. Clinical correlation is required. HEART AND MEDIASTINUM: Normal size heart. LINES: Left subclavian central venous catheter tip overlying the distal SVC. OSSEOUS STRUCTURES: No fracture, dislocation, or suspicious focal osseous lesion. OTHER: None. IMPRESSION: 1. No acute abnormality as above discussed. SL: MONTSE 05/28/2016 - - Read by: Yannick Rivera MD Dictated Date/time: 05/28/16 19:37 Electronically Signed by: Yannick Rivera MD 05/28/16 19:39 FINAL REPORT [facility] CHEMISTRY Lipase Lvl 107 U/L 73 - 393 07/14/2011 Normal [facility] CHEMISTRY Total CK 39 U/L 12 - 191 07/14/2011 Normal [facility] CHEMISTRY Troponin-I null 0.00 - 0.40 07/14/2011 Normal [facility] CHEMISTRY Myoglobin 10 ng/mL 25 - 72 07/14/2011 LOW [facility] CHEMISTRY Chloride Lvl 102 meq/L 95 - 109 07/14/2011 Normal [facility] CHEMISTRY BUN 18 mg/dL 7 - 22 07/14/2011 Normal [facility] CHEMISTRY Glucose Lvl 95 mg/dL 70 - 99 07/14/2011 Normal 1Interpretive Data: Adult reference range values reflect the clinical guidelinesof the [place] [employer]. [facility] CHEMISTRY CO2 25 meq/L 24 - 32 07/14/2011 Normal [facility] CHEMISTRY Calcium Lvl 9.0 mg/dL 8.5 - 10.5 07/14/2011 Normal [facility] CHEMISTRY Creatinine Lvl 0.7 mg/dL 0.5 - 1.4 07/14/2011 Normal [facility] CHEMISTRY Sodium Lvl 139 meq/L 135 - 145 07/14/2011 Normal [facility] CHEMISTRY Potassium Lvl 4.2 meq/L 3.5 - 5.1 07/14/2011 Normal [facility] CHEMISTRY AGAP 16.2 meq/L 10.0 - 20.0 07/14/2011 Normal [facility] CHEMISTRY Etoh (%) null 07/14/2011 NA 2Interpretive Data: Negative Range: <0.003%Toxic Range: >0.25% [facility] CHEMISTRY Ethanol Lvl null 07/14/2011 NA 3Interpretive Data: Negative Range: <3 mg/dLToxic Range: >250 mg/dL [facility] HEMATOLOGY Platelet 286 K/CMM 133 - 450 07/14/2011 Normal [facility] HEMATOLOGY RDW 13.1 % 11.5 - 14.5 07/14/2011 Normal [facility] HEMATOLOGY MCHC 34.3 g/dL 32.0 - 36.0 07/14/2011 Normal [facility] HEMATOLOGY MPV 8.0 fL 7.4 - 10.4 07/14/2011 Normal [facility] HEMATOLOGY Hgb 13.6 g/dL 12.0 - 16.0 07/14/2011 Normal [facility] HEMATOLOGY MCH 31.7 pg 27.0 - 31.0 07/14/2011 [facility] HEMATOLOGY MCV 92.5 fL 81.0 - 99.0 07/14/2011 Normal [facility] HEMATOLOGY Hct 39.7 % 36.0 - 48.0 07/14/2011 Normal [facility] HEMATOLOGY RBC 4.29 M/CMM 4.20 - 5.40 07/14/2011 Normal [facility] HEMATOLOGY WBC 14.1 K/CMM 3.7 - 10.4 07/14/2011 [facility] HEMATOLOGY INR 0.93 0.85 - 1.17 07/14/2011 Normal 4Interpretive Data: RECOMMENDED RANGES FOR PROTIME INR: 2.0-3.0 for most medical and surgical thromboembolic states. 2.5-3.5 for artificial heart valves and recurrent embolism.INR SHOULD BE USED ONLY FOR PATIENTS ON STABLE ANTICOAGULANT THERAPY. [facility] HEMATOLOGY PTT 22.9 s 22.9 - 35.8 07/14/2011 Normal 5Interpretive Data: Heparin Therapeutic Range: 57 - 92 Seconds [facility] HEMATOLOGY PT 12.5 s 12.0 - 14.7 07/14/2011 Normal [facility] HEMATOLOGY Plt Morph Normal (07/14/2011 17:29:00) 07/14/2011 Normal [facility] HEMATOLOGY RBC Morph Normal (07/14/2011 17:29:00) 07/14/2011 Normal [facility] HEMATOLOGY Segs-Bands # 10.5 K/CMM 1.5 - 8.1 07/14/2011 [facility] HEMATOLOGY Lymphocytes # 2.9 K/CMM 1.0 - 5.5 07/14/2011 Normal [facility] HEMATOLOGY Basophils # 0.0 K/CMM 0.0 - 0.2 07/14/2011 Normal [facility] HEMATOLOGY Eosinophils # 0.2 K/CMM 0.0 - 0.5 07/14/2011 Normal [facility] HEMATOLOGY Basophils 0.0 % 0.0 - 1.0 07/14/2011 Normal [facility] HEMATOLOGY Eosinophils 1.6 % 0.0 - 4.0 07/14/2011 Normal [facility] HEMATOLOGY Monocytes 3.9 % 2.0 - 12.0 07/14/2011 Normal [facility] HEMATOLOGY Lymphocytes 20.3 % 20.0 - 40.0 07/14/2011 Normal [facility] HEMATOLOGY Monocytes # 0.5 K/CMM 0.0 - 0.8 07/14/2011 Normal [facility] HEMATOLOGY Segs 74.2 % 45.0 - 75.0 07/14/2011 Normal [facility] IMMUNOLOGY CDC-HIV 1/2 Ab Negative *NA* (07/14/2011 16:52:00) Negative 07/14/2011 NA [facility] Vital Signs Vital Sign Value Date Comments Source Temperature Oral (F) 98.4 F 05/29/2016 [facility] Systolic (mm Hg) 117 05/29/2016 [facility] Diastolic (mm Hg) 61 05/29/2016 [facility] Respitory Rate 16 05/29/2016 [facility] Systolic (mm Hg) 127 05/29/2016 [facility] Diastolic (mm Hg) 65 05/29/2016 [facility] Respitory Rate 15 05/29/2016 [facility] Heart Rate 60 05/29/2016 [facility] Respitory Rate 15 05/29/2016 [facility] Systolic (mm Hg) 144 05/29/2016 [facility] Diastolic (mm Hg) 67 05/29/2016 [facility] Height 160.02 cm 05/28/2016 [facility] BMI Calculated 24.85 05/28/2016 [facility] Weight 63.636 05/28/2016 [facility] Temperature Oral (F) 98.6 F 05/28/2016 [facility] Heart Rate 77 05/28/2016 [facility] Height 160.02 cm 07/14/2011 [facility] Weight 72.727 07/14/2011 [facility] Encounters Location Location Details Encounter Type Encounter Number Reason For Visit Attending Provider ADM Date DC Date Status Source [facility] Emergency [id number] CARA VICKERS 07/14/2011 07/15/2011 Active [facility] Emergency [id number] Eugene Alvarez 05/28/2016 05/29/2016 [facility] Procedures Procedure Code Date Perfomer Comments Source section [id number] [facility]
--- NOTE | 2018-03-28 13:28 | Diagnostic Imaging Report ---
Exam: Abdominal film Clinical History: Abdominal pain, history of obstruction Comparison: CT abdomen and pelvis with contrast 12/28/2017 DISCUSSION: The bowel gas pattern shows no dilated, air-filled loops of bowel. Gas and fecal material is noted throughout the large bowel and rectum. No mass effect or organomegaly. Right upper quadrant and right pelvic surgical clips. Radiopaque suture material faintly visualized projecting over the left iliac wing. Regional skeletal structures are intact. IMPRESSION: Nonobstructive bowel gas pattern. Signed by: Dr. Obdulio Peterson M.D. on 03/28/2018 1:25 PM
[2018-03-28 14:38] LABS: BASOPHILS # (AUTO) 0.1 (0.0-0.1); BASOPHILS % 0.7 % (0.0-1.0); EOSINOPHILS # (AUTO) 0.4 (0.0-0.4); HEMATOCRIT 41.2 % (34.2-44.1); HEMOGLOBIN 13.5 g/dL (12.0-16.0); LYMPHOCYTES # (AUTO) 3.4 (1.0-3.2); MEAN CORPUSCULAR HEMOGLOBIN 31.2 pg (28-32); MEAN CORPUSCULAR HGB CONC 32.8 g/dL (31-35); MEAN CORPUSCULAR VOLUME 95.2 fL (81-99); MONOCYTES # (AUTO) 0.4 (0.2-0.8); MONOCYTES % 5.4 % (4.4-11.3); NEUTROPHILS # (AUTO) 3.9 (2.1-6.9); NEUTROPHILS % 47.7 % (38.7-80.0); PLATELET COUNT 265 x10e3/uL (140-360); RED BLOOD COUNT 4.33 x10e6/uL (3.6-5.1); RED CELL DISTRIBUTION WIDTH 12.5 % (11.7-14.4)
[2018-03-28 14:53] LABS: ALANINE AMINOTRANSFERASE 13 IU/L (0-55); ALBUMIN 3.7 g/dL (3.5-5.0); ALKALINE PHOSPHATASE 72 IU/L (40-150); ANION GAP 13.7 mmol/L (8-16); BLOOD UREA NITROGEN 15 mg/dL (7-26); BUN/CREATININE RATIO 21 (6-25); CARBON DIOXIDE 23 mmol/L (22-29); CHLORIDE 104 mmol/L (98-107); CREATININE, SERUM 0.72 mg/dL (0.57-1.11); EST GLOMERULAR FILTRATION RATE > 60 ML/MIN (60-); GLUCOSE 98 mg/dL (74-118); LIPASE 9 U/L (8-78); POTASSIUM 3.7 mmol/L (3.5-5.1); SODIUM 137 mmol/L (136-145)
[2018-03-28] MEDS ORDERED: MORPHINE SULFATE 5 MG/ML VIAL IV ONE (15:15)
[2018-03-28] MEDS ORDERED: MORPHINE SULFATE INJ 4 MG/ML INJ 1ML IV ONE (15:30)
[2018-03-28] MEDS ORDERED: MORPHINE SULFATE 2 MG/ML SYR 1ML IV PRN (15:30)
[2018-03-28] MEDS ORDERED: ONDANSETRON HCL INJ 2MG/ML 2ML 2 MG/ML VIAL IV ONE (15:30)
[2018-03-28] MEDS ORDERED: IOPAMIDOL 370 MG/ML 200 ML INFUS..BTL INJ ONE (16:36)
[2018-03-28] MEDS ORDERED: SODIUM CHLORIDE 0.9% 50ML 50 ML ONE (16:36)
--- NOTE | 2018-03-28 17:05 | Diagnostic Imaging Report ---
EXAMINATION: CT of the abdomen and pelvis with contrast. TECHNIQUE: Spiral CT images of the abdomen and pelvis were performed from the lung bases to the lesser trochanters after the intravenous administration of 100 cc Isovue-370 and the oral administration of water Coronal and sagittal reformatted images were obtained. COMPARISON: 12/28/2017 CLINICAL HISTORY:Abdominal pain DISCUSSION: ABDOMEN/PELVIS: LOWER THORAX:Unremarkable. HEPATOBILIARY: No focal hepatic lesions. No intra-or extrahepatic biliary ductal dilation. The gallbladder has been removed. SPLEEN: No splenomegaly. PANCREAS: No focal masses or ductal dilatation. ADRENALS: No adrenal nodules. KIDNEYS/URETERS: No hydronephrosis, stones, or solid mass lesions. PELVIC ORGANS/BLADDER: The bladder is normal. Status post hysterectomy. PERITONEUM/RETROPERITONEUM: No free air or fluid. LYMPH NODES: No intra-abdominal, retroperitoneal, pelvic or inguinal lymphadenopathy. VESSELS: The celiac trunk,superior and inferior mesenteric and bilateral renal arteries are patent The portal, superior mesenteric and splenic veins are patent. GI TRACT: Scattered diverticula along the sigmoid colon without wall thickening or inflammatory change. No small bowel dilatation to suggest obstruction. BONES AND SOFT TISSUE: Surgical clips along the right pelvic sidewall unchanged. No osseous destructive lesion. Degenerative disc changes of the lumbosacral junction. No focal soft tissue abnormalities. IMPRESSION: No acute intra-abdominal or pelvic CT abnormalities. Large bowel diverticulosis without diverticulitis. Signed by: Dr. Obdulio Peterson M.D. on 03/28/2018 5:02 PM
[2018-03-28 17:22] LABS: CHOL/HDL RATIO 3.4 (3.0-3.6)
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
[2018-03-28 18:08] VITALS: BP 127/56
[2018-03-28] MEDS: FAMOTIDINE 20 MG/2 ML VIAL IV SCH (18:29)
[2018-03-28 18:56] VITALS: BP 127/54
[2018-03-28] MEDS ORDERED: PNEUMOCOCCAL VACCINE POLYVALENT 23 MCG/0.5 ML VIAL IM SCH (19:00)
[2018-03-28] MEDS: SODIUM CHLORIDE 0.9% 1000ML 1,000 ML IV SCH (19:10)
[2018-03-28] MEDS: MORPHINE SULFATE INJ 4 MG/ML INJ 1ML IV PRN ×2 (19:10→20:10)
[2018-03-28 20:00] VITALS: BP 134/63
[2018-03-28] MEDS: LEVOFLOXACIN 500MG/D5W 100ML 100 ML IV SCH (20:22)
--- NOTE | 2018-03-28 21:15 | History and Physical ---
PRIMARY CARE PHYSICIAN: Dr. Anderson CHIEF COMPLAINT: Left abdominal pain. HISTORY OF PRESENT ILLNESS: This is a 63-year-old woman with a history of colon cancer and underwent resection and colostomy, which has since been removed, now developing left-sided abdominal pain prompting visit to hospital. Says this pain was 10/10 with nausea, vomiting, and diarrhea and chills for 3 weeks, ongoing, went to her primary care doctor, given pain medication, but no antibiotics, now she is here for management. PAST MEDICAL HISTORY: Diabetes mellitus type 2; hypertension; seizure; myocardial infarction, status post stent placement more than 2 years ago; DVT of the right arm and pulmonary embolism; stroke; history of colon cancer, status post resection, status post colostomy, status post reversal; COPD; diverticulosis; depression. PAST SURGICAL HISTORY: Coronary stent placement; appendectomy; colon cancer resection, status post colostomy, status post reversal. ALLERGIES: PER ELECTRONIC MEDICAL RECORD. FAMILY/SOCIAL HISTORY: Patient is . No alcohol, illicits, or cigarettes. MEDICATIONS: Per electronic medical record. REVIEW OF SYSTEMS: Denies any skin rash, dizziness, vision change. Denies any leg pain, back pain. PHYSICAL EXAMINATION: VITAL SIGNS: Have been reviewed. GENERAL APPEARANCE: Tired-appearing woman resting in bed. HEENT: Anicteric. CARDIOVASCULAR: Normal S1 and S2. LUNGS: Moderate breath sounds. ABDOMEN: Soft, nondistended. She has negative Bland sign. Left lower abdomen is tender with some voluntary guarding. EXTREMITIES: No edema or calf tenderness. NEUROLOGICAL: She is alert and oriented x3. She is moving all extremities. SKIN: Dry. PSYCHIATRIC: Flat affect. LABS: Reviewed. MEDICATIONS: Reviewed. ASSESSMENT: This is 63-year-old woman: 1. Acute gastroenteritis. 2. Bipolar disorder. 3. Depression. 4. History of colon cancer, status post resection. 5. Diabetes mellitus type 2. 6. Diabetic retinopathy. 7. Diverticulosis. 8. Sleep apnea. 9. Hypertension. 10. Seizure disorder. 11. Chronic obstructive pulmonary disease. 12. History of stroke. 13. Coronary artery disease with history of stents. PLAN: 1. Will start Flagyl and Levaquin empirically. Will treat her with IV fluids as well. 2. CT scan of the abdomen is negative for any acute findings. 3. Restart home medication. Will keep n.p.o. for tonight and plan to start clear liquid diet tomorrow morning. 4. Prophylaxis. SCD, PPI. 5. Disposition. Obtain labs, keep n.p.o. tonight, and reassess her in the morning. Job#: [id number]
[2018-03-28] MEDS: METRONIDAZOLE 500MG/NS 100ML 100 ML IV SCH (22:40)
[2018-03-28] MEDS: ZOLPIDEM TARTRATE 10 MG TAB PO PRN (23:33)
[2018-03-28] MEDS: PHENYTOIN SODIUM EXT REL 100 MG CAP PO SCH (23:33)
[2018-03-28] MEDS: PHENOBARBITAL 30 MG TAB PO SCH (23:33)
[2018-03-29] VITALS (8 sets, daily range): BP systolic 83–118; BP diastolic 54–66
[2018-03-29] MEDS: MORPHINE SULFATE INJ 4 MG/ML INJ 1ML IV PRN ×5 (01:19→20:21)
[2018-03-29] MEDS: ONDANSETRON HCL INJ 2MG/ML 2ML 2 MG/ML VIAL IV PRN ×5 (01:19→20:21)
--- NOTE | 2018-03-29 02:23 | NUR ---
PATIENT REPORTING 10/10 PAIN. PAIN MEDICATION ADMINISTERED ONE HOUR PRIOR WITH NO DECREASE IN PAIN. SPOKE WITH MD OCONNOR. NEW ORDERS RECEIVED.
[2018-03-29] MEDS: HYDROMORPHONE 2MG/ML 2 MG/ML ML IV PRN ×2 (02:52→07:38)
[2018-03-29] MEDS: METRONIDAZOLE 500MG/NS 100ML 100 ML IV SCH ×3 (05:24→22:07)
--- NOTE | 2018-03-29 07:47 | NUR ---
Rcvd patient in report this am. Patient is asleep in bed at this time. NO s/s of distress noted
[2018-03-29] MEDS: FAMOTIDINE 20 MG/2 ML VIAL IV SCH ×2 (08:49→16:03)
--- NOTE | 2018-03-29 11:09 | NUR ---
Patient is AAOx3. Patient lung daniel clear to auscultation. Bowel sounds present but hypoactive. Patient c/o pain in abdomen and unable to tolerate clear liquid diet. Patient having nausea and vomiting. She has had loose stools. No edema noted. Left chest port a cath in place. IV fluids infusing.
[2018-03-29] MEDS: SODIUM CHLORIDE 0.9% 1000ML 1,000 ML IV SCH (15:57)
--- NOTE | 2018-03-29 16:09 | NUR ---
Nutrition Screen Note RD Recommendation for Physician: -Advance to ADA/ GI soft diet as medically appropriate Plan of Care: RD following, monitoring for tolerance and adequacy Nutrition reason for involvement: Nutrition Risk Trigger MST Primary Diagnose(s): Acute gastroenteritis. PMH: Diabetes mellitus type 2; hypertension; seizure; myocardial infarction, status post stent placement more than 2 years ago; DVT of the right arm and pulmonary embolism; stroke; history of colon cancer, status post resection, status post colostomy, status post reversal; COPD; diverticulosis; depression. Ht: 63in Wt: 179lb BMI: 31.7kg/m2 IBW: 115lb RD Assessment: (03/29/2018) 63yo F, who is admitted for abdominal pain with N/V/D x 3 weeks. Chart reviewed. Labs and meds reviewed. CT abd/ pel showed large bowel diverticulosis without diverticulitis. Abd XR showed no sign of obstruction. Pt was NPO. Visited pt in the room. Pt reported having abdominal pain with N/V/D today. EGD was planned for today. Pt has had decreased appetite and PO intake x 3 weeks [employer]. Reported UBW ~181lb, possible 2lbs weight loss in 3 weeks (insignificant). Upon NFPA, pt appeared obese with no sign of muscle and fat loss. Will cont to monitor. Please consult as needed. Current Diet: NPO Malnutrition Evaluation (03/29/2018) The patient does not meet criteria for a specified degree of malnutrition at this time. Will re-evaluate at follow-up as appropriate. Energy intake: <75% of estimated energy requirements for >7 days Weight loss: 2lbs in 3 weeks Fat loss: n/a Muscle loss: n/a Supporting Evidence: Fluid accumulation: unable to evaluate Functional Status: no changes Diet Education Needs Assessment: Diet education not indicated. Nutrition Care Level: low Signed: Komal Malik, MS, RD, LD
[2018-03-29] MEDS: LEVOFLOXACIN 500MG/D5W 100ML 100 ML IV SCH (18:34)
[2018-03-29] MEDS: PHENOBARBITAL 30 MG TAB PO SCH (22:07)
[2018-03-29] MEDS: ZOLPIDEM TARTRATE 10 MG TAB PO PRN (22:07)
[2018-03-29] MEDS: PHENYTOIN SODIUM EXT REL 100 MG CAP PO SCH (22:07)
[2018-03-29] MEDS ORDERED: ONDANSETRON HCL INJ 2MG/ML 2ML 2 MG/ML VIAL IV STA (22:51)
[2018-03-29] MEDS: BISACODYL 5 MG TAB EC PO SCH (23:30)
[2018-03-30] VITALS (8 sets, daily range): BP systolic 91–122; BP diastolic 49–63
[2018-03-30] MEDS: BISACODYL 5 MG TAB EC PO SCH ×2 (00:03→00:35)
[2018-03-30] MEDS ORDERED: BISACODYL 10 MG SUPP PR ONE (02:00)
[2018-03-30] MEDS: MORPHINE SULFATE INJ 4 MG/ML INJ 1ML IV PRN ×4 (03:06→21:59)
[2018-03-30] MEDS: ONDANSETRON HCL INJ 2MG/ML 2ML 2 MG/ML VIAL IV PRN ×3 (03:06→11:21)
[2018-03-30] MEDS ORDERED: CITRATE OF MAGNESIA 300ML BOTTLE PO ONE ×2 (05:00)
[2018-03-30] MEDS: METRONIDAZOLE 500MG/NS 100ML 100 ML IV SCH ×3 (05:54→21:59)
--- NOTE | 2018-03-30 07:28 | NUR ---
Rcvd patient in report this am. Patient is asleep in bed at this time. Patient is c/o pain. PRN pain meds given
[2018-03-30] MEDS: FAMOTIDINE 20 MG/2 ML VIAL IV SCH ×2 (08:34→14:42)
[2018-03-30] MEDS: SODIUM CHLORIDE 0.9% 1000ML 1,000 ML IV SCH (08:34)
--- NOTE | 2018-03-30 10:38 | NUR ---
Patient had a loose BM at this time. NOted to still be dark in color. Patient preparing for colonoscopy today
[2018-03-30] MEDS: HYDROMORPHONE 2MG/ML 2 MG/ML ML IV PRN (11:21)
[2018-03-30] MEDS ORDERED: CITRATE OF MAGNESIA 300ML BOTTLE PO NR (12:45)
[2018-03-30] MEDS ORDERED: FENTANYL CITRATE/PF 100MCG/2 ML INJ ONE (14:15)
[2018-03-30] MEDS ORDERED: MIDAZOLAM HCL 2 MG/2 ML VIAL ONE (14:15)
[2018-03-30] MEDS ORDERED: PROPOFOL IV EMULSION 10 MG/ML 50 ML VIAL ONE (14:25)
[2018-03-30] MEDS ORDERED: HYOSCYAMINE SULFATE 0.5 MG/ML INJ ONE (14:25)
[2018-03-30] MEDS ORDERED: ONDANSETRON HCL INJ 2MG/ML 2ML 2 MG/ML VIAL IV NR (14:30)
--- NOTE | 2018-03-30 14:44 | NUR ---
Patient noted to be vomiting. 300ml of yellow emesis noted. Call placed to Dr. Lehman to inform and new order for extra dose of 4mg of zofran
--- NOTE | 2018-03-30 14:46 | NUR ---
IM- Progress Note O/N abdominal pain REVIEW OF SYSTEMS: Denies any skin rash, dizziness, vision change. Denies any leg pain, back pain. PHYSICAL EXAMINATION: VITAL SIGNS: Have been reviewed. GENERAL APPEARANCE: Tired-appearing woman resting in bed. HEENT: Anicteric. CARDIOVASCULAR: Normal S1 and S2. LUNGS: Moderate breath sounds. ABDOMEN: Soft, nondistended. She has negative Bland sign. Left lower abdomen is tender with some voluntary guarding. EXTREMITIES: No edema or calf tenderness. NEUROLOGICAL: She is alert and oriented x3. She is moving all extremities. SKIN: Dry. PSYCHIATRIC: Flat affect. LABS: Reviewed. MEDICATIONS: Reviewed. ASSESSMENT: This is 63-year-old woman: 1. Acute gastroenteritis. 2. Bipolar disorder. 3. Depression. 4. History of colon cancer, status post resection. 5. Diabetes mellitus type 2. 6. Diabetic retinopathy. 7. Diverticulosis. 8. Sleep apnea. 9. Hypertension. 10. Seizure disorder. 11. Chronic obstructive pulmonary disease. 12. History of stroke. 13. Coronary artery disease with history of stents. PLAN: 1. Will start Flagyl and Levaquin empirically. Will treat her with IV fluids as well. 2. CT scan of the abdomen is negative for any acute findings. 3. Restart home medication. Will keep n.p.o. for tonight and plan to start clear liquid diet tomorrow morning. 4. Prophylaxis. SCD, PPI. 5. Disposition. Obtain labs, keep n.p.o. tonight, and reassess her in the morning. 03/29 Hba1c/LDL 7.2/106. pain control. GI eval. 03/30 acute gastroenteritis; check labs; endoscopy pending; MD MEMO, PhD.
[2018-03-30] MEDS ORDERED: PNEUMOCOCCAL VACCINE POLYVALENT 23 MCG/0.5 ML VIAL ONE (16:19)
--- NOTE | 2018-03-30 16:27 | NUR ---
Patient rcvd pneumonia vaccine at this time in left deltoid. No c/o pain. No s/s of distress noted
--- NOTE | 2018-03-30 16:44 | NUR ---
Patient went to Endo at this time.
[2018-03-30 18:58] LABS: WBC,FECAL (FECAL LACTOFERRIN) NEGATIVE (NEGATIVE)
--- NOTE | 2018-03-30 20:05 | NUR ---
RECEIVED PATIENT FROM PACU. AAOX3. NO NEEDS AT THIS TIME. BED LOCKED AND IN LOWEST POSITION, CALL LIGHT WITHIN EASY REACH. WILL CONTINUE TO MONITOR THE PATIENT CLOSELY.
[2018-03-30] MEDS: LEVOFLOXACIN 500MG/D5W 100ML 100 ML IV SCH (20:10)
[2018-03-30] MEDS: PHENOBARBITAL 30 MG TAB PO SCH (21:59)
[2018-03-30] MEDS: PHENYTOIN SODIUM EXT REL 100 MG CAP PO SCH (21:59)
[2018-03-31] VITALS (7 sets, daily range): BP systolic 97–109; BP diastolic 49–58
--- NOTE | 2018-03-31 00:18 | Operative Report ---
DATE OF PROCEDURE: March 30, 2018 REFERRING PHYSICIAN: Dr. Castillo Santana. PROCEDURES 1. Esophagogastroduodenoscopy with biopsies. 2. Colonoscopy with biopsies. INDICATIONS FOR ESOPHAGOGASTRODUODENOSCOPY: Upper abdominal pain, nausea and vomiting, and history of hematemesis. INDICATION FOR COLONOSCOPY: Lower abdominal pain and diarrhea. MEDICATIONS: Patient was done under MAC. Please see anesthesiologist's note. ESOPHAGOGASTRODUODENOSCOPY: With the patient in the left lateral decubitus position, the flexible fiberoptic Olympus gastroscope was introduced into the esophagus under direct visualization without any difficulty. There was some patchy erythema noted in distal esophagus. Minute tongues of velvety red mucosa were noted to extend proximally from the GE junction and biopsies were obtained. Repeat biopsies were obtained to rule out Nunez's. The scope was then advanced with ease into the stomach. Mucosa overlying the antrum and the body revealed some patchy intense erythema and moderate edema, and biopsies were obtained and sent to stain for H. pylori. The pylorus was of normal contour and shape. It was intubated with ease and the scope was advanced all the way to the 2nd portion of the duodenum. The scope was then withdrawn slowly and mucosa overlying the proximal 2nd portion and the duodenal bulb appeared to be within normal limits. The scope was then withdrawn back into the stomach and retroflexed and mucosa overlying the fundus and the cardia appeared to be within normal limits. The scope was then straightened out. It was subsequently withdrawn. The patient tolerated the procedure well. IMPRESSION 1. Distal esophagitis, mild. 2. Rule out Nunez's. 3. Gastritis, biopsied. Biopsies sent to stain for H. Pylori. PLAN: Follow up histology. Initiate Protonix 40 mg 1 p.o. q.a.m. a.c. COLONOSCOPY: The patient was then turned around, and after adequate lubrication of the anal canal, a flexible fiberoptic Olympus colonoscope was inserted into the rectum with ease and advanced all way to the cecum. The scope was then withdrawn slowly. Mucosa overlying the cecum, ascending colon, and transverse colon appeared to be within normal limits. There were some patchy mild inflammatory changes noted in the left colon and random biopsies were obtained. Diverticular disease was noted to involve the sigmoid and the distal descending. The rectum grossly appeared to be within normal limits. The scope was then retroflexed into the distal rectum and small internal hemorrhoids were noted, none of which was actively bleeding. The scope was then straightened out. It was subsequently withdrawn. The patient tolerated the procedure well. IMPRESSION 1. Mild patchy left-sided colitis. 2. Diverticulosis. 3. Internal hemorrhoids, none actively bleeding. PLAN: Follow up histology. Follow up stool studies. Initiate Bentyl 10 mg 1 p.o. t.i.d. The patient might benefit from a followup colonoscopy in 5 years. Job#: [id number] RTY cc:Nico Sanabria DO
[2018-03-31] MEDS: METRONIDAZOLE 500MG/NS 100ML 100 ML IV SCH ×3 (05:50→22:00)
[2018-03-31 05:54] LABS: BASOPHILS % 0.6 % (0.0-1.0); EOSINOPHILS # (AUTO) 0.3 (0.0-0.4); EOSINOPHILS % 4.6 % (0.0-6.0); HEMATOCRIT 36.8 % (34.2-44.1); HEMOGLOBIN 11.9 g/dL (12.0-16.0); LYMPHOCYTES # (AUTO) 1.6 (1.0-3.2); LYMPHOCYTES % 22.6 % (18.0-39.1); MEAN CORPUSCULAR HEMOGLOBIN 31.2 pg (28-32); MEAN CORPUSCULAR HGB CONC 32.3 g/dL (31-35); MEAN CORPUSCULAR VOLUME 96.3 fL (81-99); MONOCYTES # (AUTO) 0.5 (0.2-0.8); MONOCYTES % 6.2 % (4.4-11.3); NEUTROPHILS # (AUTO) 4.8 (2.1-6.9); NEUTROPHILS % 65.7 % (38.7-80.0); PLATELET COUNT 221 x10e3/uL (140-360); RED BLOOD COUNT 3.82 x10e6/uL (3.6-5.1); RED CELL DISTRIBUTION WIDTH 12.5 % (11.7-14.4)
[2018-03-31 06:21] LABS: INR 1.03; PROTHROMBIN TIME 14.4 seconds (11.9-14.5)
[2018-03-31 06:33] LABS: ALANINE AMINOTRANSFERASE 17 IU/L (0-55); ALBUMIN 3.1 g/dL (3.5-5.0); ALBUMIN/GLOBULIN RATIO 0.9 (0.8-2.0); ALKALINE PHOSPHATASE 73 IU/L (40-150); ANION GAP 12.4 mmol/L (8-16); BLOOD UREA NITROGEN 10 mg/dL (7-26); BUN/CREATININE RATIO 14 (6-25); CARBON DIOXIDE 22 mmol/L (22-29); CHLORIDE 104 mmol/L (98-107); CREATININE, SERUM 0.72 mg/dL (0.57-1.11); EST GLOMERULAR FILTRATION RATE > 60 ML/MIN (60-); GLUCOSE 90 mg/dL (74-118); POTASSIUM 3.4 mmol/L (3.5-5.1); SODIUM 135 mmol/L (136-145)
--- NOTE | 2018-03-31 07:29 | NUR ---
Rcvd patient in report this am. Patient is asleep in bed at this time. No s/s of distress noted
[2018-03-31] MEDS: FAMOTIDINE 20 MG/2 ML VIAL IV SCH ×2 (08:11→16:53)
[2018-03-31] MEDS: SODIUM CHLORIDE 0.9% 1000ML 1,000 ML IV SCH (08:37)
[2018-03-31] MEDS: ONDANSETRON HCL INJ 2MG/ML 2ML 2 MG/ML VIAL IV PRN ×3 (08:37→22:00)
--- NOTE | 2018-03-31 09:47 | NUR ---
NORMA SPOKE TO MD REGARDING PATIENT LOC AND PLAN OF CARE. PER DR. OCONNOR, HE WILL MAKE ROUNDS THIS AM; PENDING ASSESSMENT HE WILL DETERMINE PATIENT PLAN OF CARE.
[2018-03-31] MEDS ORDERED: POTASSIUM CHLORIDE 20 MEQ TAB CR PO NR (11:09)
--- NOTE | 2018-03-31 11:55 | NUR ---
Patient is AAOx3. Patient continues with some nausea when eating. No vomiting noted. NO c/o pain. Patient is on a go soft diet at this time. Lung daniel clear to auscultation. Bowel sounds present x4.
[2018-03-31 14:58] LABS: C DIFFICILE TOXIN A&B AMP PROB NEGATIVE (NEGATIVE)
[2018-03-31] MEDS: HYDROMORPHONE 2MG/ML 2 MG/ML ML IV PRN (17:04)
[2018-03-31] MEDS: LEVOFLOXACIN 500MG/D5W 100ML 100 ML IV SCH (18:45)
--- NOTE | 2018-03-31 19:29 | NUR ---
received patient aaox3, no pain voiced. resting in bed. stable condition. breathing even and unlabored. bed locked and in lowest position, call light within easy reach. will continue to monitor the patient.
[2018-03-31] MEDS: HYDROCODONE/APAP 10MG-325MG TAB PO PRN (19:53)
--- NOTE | 2018-03-31 19:54 | NUR ---
patient voiced need to vomit. emesis bag provided, small amount of clear output noted.
[2018-03-31] MEDS: PHENOBARBITAL 30 MG TAB PO SCH (22:00)
[2018-03-31] MEDS: PHENYTOIN SODIUM EXT REL 100 MG CAP PO SCH (22:00)
[2018-03-31] MEDS ORDERED: PANTOPRAZOLE 40 MG 10ML VIAL IV STA (23:36)
[2018-03-31] MEDS ORDERED: PANTOPRAZOLE 40 MG 10ML VIAL IV SCH (23:45)
[2018-04-01] VITALS (10 sets, daily range): BP systolic 95–117; BP diastolic 53–65
[2018-04-01] MEDS: HYDROCODONE/APAP 10MG-325MG TAB PO PRN ×2 (01:10→08:49)
[2018-04-01] MEDS: SODIUM CHLORIDE 0.9% 1000ML 1,000 ML IV SCH ×2 (03:00→23:27)
[2018-04-01] MEDS: METRONIDAZOLE 500MG/NS 100ML 100 ML IV SCH ×3 (05:29→21:51)
[2018-04-01 05:54] LABS: BASOPHILS % 0.6 % (0.0-1.0); EOSINOPHILS # (AUTO) 0.3 (0.0-0.4); EOSINOPHILS % 5.2 % (0.0-6.0); HEMATOCRIT 35.9 % (34.2-44.1); HEMOGLOBIN 11.7 g/dL (12.0-16.0); LYMPHOCYTES # (AUTO) 2.5 (1.0-3.2); LYMPHOCYTES % 38.4 % (18.0-39.1); MEAN CORPUSCULAR HEMOGLOBIN 31.4 pg (28-32); MEAN CORPUSCULAR HGB CONC 32.6 g/dL (31-35); MEAN CORPUSCULAR VOLUME 96.2 fL (81-99); MONOCYTES # (AUTO) 0.4 (0.2-0.8); MONOCYTES % 6.3 % (4.4-11.3); NEUTROPHILS # (AUTO) 3.2 (2.1-6.9); NEUTROPHILS % 49.3 % (38.7-80.0); PLATELET COUNT 217 x10e3/uL (140-360); RED BLOOD COUNT 3.73 x10e6/uL (3.6-5.1); RED CELL DISTRIBUTION WIDTH 12.7 % (11.7-14.4)
[2018-04-01 06:14] LABS: ALANINE AMINOTRANSFERASE 15 IU/L (0-55); ALBUMIN 2.9 g/dL (3.5-5.0); ALBUMIN/GLOBULIN RATIO 0.8 (0.8-2.0); ALKALINE PHOSPHATASE 65 IU/L (40-150); ANION GAP 11.7 mmol/L (8-16); BLOOD UREA NITROGEN 9 mg/dL (7-26); BUN/CREATININE RATIO 13 (6-25); CALCIUM 8.1 mg/dL (8.4-10.2); CARBON DIOXIDE 22 mmol/L (22-29); CHLORIDE 106 mmol/L (98-107); CREATININE, SERUM 0.69 mg/dL (0.57-1.11); EST GLOMERULAR FILTRATION RATE > 60 ML/MIN (60-); GLUCOSE 95 mg/dL (74-118); POTASSIUM 3.7 mmol/L (3.5-5.1); SODIUM 136 mmol/L (136-145)
--- NOTE | 2018-04-01 08:36 | NUR ---
IM- Progress Note DOS 03/31/18 O/N abdominal pain REVIEW OF SYSTEMS: Denies any skin rash, dizziness, vision change. Denies any leg pain, back pain. PHYSICAL EXAMINATION: VITAL SIGNS: Have been reviewed. GENERAL APPEARANCE: Tired-appearing woman resting in bed. HEENT: Anicteric. CARDIOVASCULAR: Normal S1 and S2. LUNGS: Moderate breath sounds. ABDOMEN: Soft, nondistended. She has negative Bland sign. Left lower abdomen is tender with some voluntary guarding. EXTREMITIES: No edema or calf tenderness. NEUROLOGICAL: She is alert and oriented x3. She is moving all extremities. SKIN: Dry. PSYCHIATRIC: Flat affect. LABS: Reviewed. MEDICATIONS: Reviewed. ASSESSMENT: This is 63-year-old woman: 1. Acute gastroenteritis. 2. Bipolar disorder. 3. Depression. 4. History of colon cancer, status post resection. 5. Diabetes mellitus type 2. 6. Diabetic retinopathy. 7. Diverticulosis. 8. Sleep apnea. 9. Hypertension. 10. Seizure disorder. 11. Chronic obstructive pulmonary disease. 12. History of stroke. 13. Coronary artery disease with history of stents. PLAN: 1. Will start Flagyl and Levaquin empirically. Will treat her with IV fluids as well. 2. CT scan of the abdomen is negative for any acute findings. 3. Restart home medication. Will keep n.p.o. for tonight and plan to start clear liquid diet tomorrow morning. 4. Prophylaxis. SCD, PPI. 5. Disposition. Obtain labs, keep n.p.o. tonight, and reassess her in the morning. 03/29 Hba1c/LDL 7.2/106. pain control. GI eval. 03/30 acute gastroenteritis; check labs; endoscopy pending; 03/31 Endoscopy = esophagitis, gastritis, Left sided colitis, internal hemorrhoids, diveticulosis. MD MEMO, PhD.
--- NOTE | 2018-04-01 08:39 | NUR ---
DIscharge Summary: Principal Dx: ASSESSMENT: This is 63-year-old woman: 1. Acute gastroenteritis. 2. Bipolar disorder. 3. Depression. 4. History of colon cancer, status post resection. 5. Diabetes mellitus type 2. 6. Diabetic retinopathy. 7. Diverticulosis. 8. Sleep apnea. 9. Hypertension. 10. Seizure disorder. 11. Chronic obstructive pulmonary disease. 12. History of stroke. 13. Coronary artery disease with history of stents. PLAN: 1. Will start Flagyl and Levaquin empirically. Will treat her with IV fluids as well. 2. CT scan of the abdomen is negative for any acute findings. 3. Restart home medication. Will keep n.p.o. for tonight and plan to start clear liquid diet tomorrow morning. 4. Prophylaxis. SCD, PPI. 5. Disposition. Obtain labs, keep n.p.o. tonight, and reassess her in the morning. 03/29 Hba1c/LDL 7.2/106. pain control. GI eval. 03/30 acute gastroenteritis; check labs; endoscopy pending; 03/31 Endoscopy = esophagitis, gastritis, Left sided colitis, internal hemorrhoids, diveticulosis. 04/01 GI soft diet; antiemetics; needs f/u with GI. d/c >35mins d/c home f/u PCP 1 week and GI in 2 weeks condition: stable; MD MEMO, PhD.
--- NOTE | 2018-04-01 08:40 | NUR ---
PT LAYING IN BED AT THIS TIME. N/V OBSERVED. VOMITING CLEAR, THIN SPUTUM. PT C/O PAIN NOTED TO L SIDE OF ABD DURING PALPATION. RESP EVEN AND UNLABORED. PORT-A-CATH TO L UPPER CHEST WALL, NO REDNESS OR SWELLING TO SITE, LINE IS PATENT. PT STATED SHE HAS NOT ATE SINCE DINNER NIGHT BEFORE TODAY. SCD ON BLE. ZOFRAN ADMINISTERED DUE TO NAUSEA/VOMITING.
[2018-04-01] MEDS ORDERED: ZOFRAN4 MG PO (08:41)
[2018-04-01] MEDS ORDERED: PANTOPRAZOLE SO40 MG PO (08:41)
[2018-04-01] MEDS: ONDANSETRON HCL INJ 2MG/ML 2ML 2 MG/ML VIAL IV PRN ×3 (08:48→21:52)
[2018-04-01] MEDS: PANTOPRAZOLE 40 MG 10ML VIAL IV SCH ×2 (08:49→20:41)
--- NOTE | 2018-04-01 09:24 | NUR ---
CASE MANAGEMENT INITIAL ASSESSMENT Pad Making Machine Operator to bedside to discuss plan of care with patient/family. CM/SW role and care transitions discussed. Anticipated discharge plan discussed along with duration of care. CM/SW discussed patients right to make decisions in care. CM/SW work hours given. Patient lives: with her son Admit/Transfer: thru ED Hospital/ER visits since last admit: 0; last hospitalization in December 2017 at [facility] [place] POA/Emergency contact: Virgil Mcknight [phone] Current/Previous Home Health: none PCP/Follow-up Care: Dr. Rayray Anderson - informed pt to schedule a follow up appointment within 7 days of discharge Current/Previous DME: [facility] Medications (referring to index hospitalization or the first time you were in the hospital) a. Were changes made in your medications when you were in the hospital on [date of index hospitalization]? no b. Did you understand the changes? n/a c. Were you able to obtain your new medications right away? n/a d. Were you able to take your medications like the doctor wanted you to? yes e. Did the hospital give you an accurate, easy to understand list of medications when you left? Scale of 1-10 how comfortable does patient feel with disease management in outpatient setting: Other Services: none Employment Status: unemployed Areas of Concerns: abdominal pain Referral Needs: none Education Needs: medical management IMM/HUMPHREY given and signed (if applicable): IMM delivered and explained to pt. Signed copy placed in chart. Copy to pt. Goal for discharge: home CM/SW left business card at the bedside with contact information. Name and number was also written on the patients whiteboard. Patient verbalized understanding of discussion. CM will follow-up with ongoing discharge and transition of care needs.
--- NOTE | 2018-04-01 11:50 | NUR ---
PT VOMITING SMALL AMOUNTS OF CLEAR SPUTUM. NURSE INFORMED DR. TERESA. NEW ORDER FOR REGLAN 10MG IV Q6HR STACY AND MONITOR FOR EFFECTIVENESS. PT HAS NOT CONSUMED ANY MEALS AT THIS TIME.
[2018-04-01] MEDS: MORPHINE SULFATE INJ 4 MG/ML INJ 1ML IV PRN ×2 (13:00→21:52)
[2018-04-01] MEDS: METOCLOPRAMIDE HCL 10 MG/2ML VIAL IV SCH (17:32)
--- NOTE | 2018-04-01 18:15 | NUR ---
PT RESTING IN BED AT THIS TIME. FAMILY MEMBER AT BEDSIDE. PT STATED PAIN HAD SUBSIDED WITH MORPHINE DOSE AND HAS RETURNED TO AN 8/10 AT THIS TIME. NO EPISODES OF N/V AT TIME THIS. PT HAS NOT BEEN ABLE TO EAT MEALS, NURSE PROVIDED EDUCATION ON NUTRITION, INFORMED PT TO EAT TOLERATED. PORT CATH TO L UPPER CHEST WALL, PATENT, NO REDNESS OR SWELLING TO INSERTION SITE. PT IS AAO x4. AMBULATORY WITH WALK[facility]. LAST BM NOTED AT 1700 THIS EVENING.
[2018-04-01] MEDS ORDERED: LEVOFLOXACIN 500MG/D5W 100ML 100 ML IV SCH (20:00)
[2018-04-01] MEDS: PHENYTOIN SODIUM EXT REL 100 MG CAP PO SCH (20:41)
[2018-04-01] MEDS: PHENOBARBITAL 30 MG TAB PO SCH (20:41)
[2018-04-02] MEDS: METOCLOPRAMIDE HCL 10 MG/2ML VIAL IV SCH ×2 (00:38→06:12)
[2018-04-02] MEDS: MORPHINE SULFATE INJ 4 MG/ML INJ 1ML IV PRN (03:50)
[2018-04-02] MEDS: ONDANSETRON HCL INJ 2MG/ML 2ML 2 MG/ML VIAL IV PRN (03:51)
[2018-04-02 04:00] VITALS: BP 94/55
--- NOTE | 2018-04-02 05:37 | NUR ---
DIscharge Summary: Principal Dx: ASSESSMENT: This is 63-year-old woman: 1. Acute gastroenteritis. 2. Bipolar disorder. 3. Depression. 4. History of colon cancer, status post resection. 5. Diabetes mellitus type 2. 6. Diabetic retinopathy. 7. Diverticulosis. 8. Sleep apnea. 9. Hypertension. 10. Seizure disorder. 11. Chronic obstructive pulmonary disease. 12. History of stroke. 13. Coronary artery disease with history of stents. PLAN: 1. Will start Flagyl and Levaquin empirically. Will treat her with IV fluids as well. 2. CT scan of the abdomen is negative for any acute findings. 3. Restart home medication. Will keep n.p.o. for tonight and plan to start clear liquid diet tomorrow morning. 4. Prophylaxis. SCD, PPI. 5. Disposition. Obtain labs, keep n.p.o. tonight, and reassess her in the morning. 03/29 Hba1c/LDL 7.2/106. pain control. GI eval. 03/30 acute gastroenteritis; check labs; endoscopy pending; 03/31 Endoscopy = esophagitis, gastritis, Left sided colitis, internal hemorrhoids, diveticulosis. 04/01 GI soft diet; antiemetics; needs f/u with GI. 04/02 Pt remained extra day due to nausea. Reglan added. d/c >35mins d/c home f/u PCP 1 week and GI in 2 weeks condition: stable; MD MEMO, PhD.
[2018-04-02] MEDS ORDERED: SUCRALFATE 1 GM TAB PO SCH (07:30)
[2018-04-02] MEDS: PANTOPRAZOLE 40 MG 10ML VIAL IV SCH (07:57)
[2018-04-02 08:01] LABS: CLARITY,URINE SL CLOUDY (CLEAR); COLOR,URINE YELLOW (YELLOW)
[2018-04-02 08:04] LABS: BILIRUBIN,URINE NEGATIVE (NEGATIVE); KETONES,URINE 2+ (NEGATIVE); LEUKOCYTE ESTERASE ,URINE NEGATIVE (NEGATIVE); NITRITE,URINE NEGATIVE (NEGATIVE); PROTEIN,URINE DIPSTICK NEGATIVE (NEGATIVE); URINE UROBILINOGEN 0.2 mg/dL (0.2 - 1)
[2018-04-02 08:22] VITALS: BP 98/52
[2018-04-02 08:35] LABS: BACTERIA,URINE FEW /HPF; EPITHELIAL CELLS,URINE FEW /LPF; RBC,URINE 0-5 /HPF (0-5); WBC,URINE (MAN) 0-5 /HPF (0-5)
[2018-04-02 08:39] VITALS: BP 98/52
--- NOTE | 2018-04-02 10:40 | NUR ---
D/C PORT A CATH AT THIS TIME. NO REDNESS TO SIGHT, NO SWELLING NOTED. PT DENIED PAIN TO SITE. PT TOLERATED D/C OF LINE WELL.
== END 2018-04-02 11:30 | disposition home or self-care (01) | DRG 387 ==
LOC: ER 11:50 → ERHOLD 15:16 → MED/SURG 18:01 → OBSVTOIN 03-31 18:31
PROVIDERS: ADMIT Internal Medicine; ATTEND Internal Medicine
PROC: 0DB58ZX Excision of Esophagus, Via Natural or Artificial Opening Endoscopic, Diagnostic (ICD-10-PCS; principal; 2018-03-30 17:37)
PROC: 0DB78ZX Excision of Stomach, Pylorus, Via Natural or Artificial Opening Endoscopic, Diagnostic (ICD-10-PCS; 2018-03-30 17:37)
PROC: 0DBG8ZX Excision of Left Large Intestine, Via Natural or Artificial Opening Endoscopic, Diagnostic (ICD-10-PCS; 2018-03-30 17:37)
DX: K51.50 Left sided colitis without complications (principal); F31.9 Bipolar disorder, unspecified; Z85.038 Personal history of other malignant neoplasm of large intestine; Z90.49 Acquired absence of other specified parts of digestive tract; E11.319 Type 2 diabetes mellitus with unspecified diabetic retinopathy without macular edema; K57.90 Diverticulosis of intestine, part unspecified, without perforation or abscess without bleeding; G40.909 Epilepsy, unspecified, not intractable, without status epilepticus; J44.9 Chronic obstructive pulmonary disease, unspecified; Z86.73 Personal history of transient ischemic attack (TIA), and cerebral infarction without residual deficits; I25.10 Atherosclerotic heart disease of native coronary artery without angina pectoris; Z95.5 Presence of coronary angioplasty implant and graft; K29.70 Gastritis, unspecified, without bleeding; G47.30 Sleep apnea, unspecified; K64.8 Other hemorrhoids; Z79.4 Long term (current) use of insulin
CPT/HCPCS: 36415; 43239; 45378; 45380; 74018; 74177; 80053; 80061; 81001; 82948; 83036; 83605; 83630; 83690; 83993; 85025; 85610; 87045; 87177; 87328; 87493; 88305; 88312; 90732; 99284; G0378; J1642; J1956; J1980; J2250; J2270; J2405; J2765; J7030; Q9967

== ENCOUNTER 2018-08-09 11:10 | Observation (INO) | payer MEDICARE ==
[~2018-08-09] VITALS: Ht 160 cm; Wt 83.7 kg
[~2018-08-09 11:10] MED LIST changes: +ZOFRAN4 MG PO
--- OUTSIDE RECORDS SUMMARY | 2018-08-09 11:12 | XMS REPORT | Clinical Summary ---
Author Author [facility] Organization [facility] Address Unknown Phone Unavailable Care Team Providers Care Health Insurance Agent Name Role Phone Rayray Anderson PCP Allergies Comments Active Allergy Reactions Severity Noted Date Prochlorperazine Hives High 05/29/2018 Edisylate Medications End Date Status Medication Sig Dispensed Refills Start Date Active diphenhydrAMINE Take 25 mg by 0 (BENADRYL) 25 mg tablet mouth every 4 (four) hours as needed for Itching or Sleep. Active dicyclomine (BENTYL) 20 Take 20 mg by 0 mg tablet mouth daily. Active HYDROcodone-acetaminophen Take 1 tablet 0 (NORCO 10-325) 10-325 mg by mouth per tablet every 6 (six) hours as needed for Pain. Active hydrocortisone 2.5 % Apply 0 cream topically 2 (two) times daily. Active insulin glargine (LANTUS) Inject 0 100 unit/mL subcutaneousl injectionIndications: y 3 (three) sliding scale times daily before meals Sliding scale. Active pregabalin (LYRICA) 100 Take 100 mg 0 MG capsule by mouth daily. Active magnesium oxide (MAG-OX) Take 400 mg 0 400 mg (241.3 mg by mouth magnesium) tablet daily. Active mesalamine (LIALDA) 1.2 Take 1,200 mg 0 gram EC tablet by mouth daily with breakfast. Active metoclopramide (REGLAN) 5 Take 5 mg by 0 MG tablet mouth daily. Active nitroglycerin (NITROSTAT) Place 0.4 mg 0 0.4 MG SL tablet under the tongue every 5 (five) minutes as needed for Chest pain Put 1 pill under tongue every 5min as needed for chest pain.No more than 3 doses in 15min.Call 911 if pain is unrelieved 5min after 1st dose . Active insulin 70/30, insulin Inject 1-10 0 NPH-insulin regular, Units (HUMULIN 70/30) 100 subcutaneousl unit/mL (70-30) InPn y 2 (two) insulin pen times daily before meals. Active ondansetron (ZOFRAN) 4 MG Take 4 mg by 0 tablet mouth 2 (two) times daily as needed for Nausea. Active PARoxetine (PAXIL) 20 MG Take 20 mg by 0 tablet mouth every morning. Active phenazopyridine Take 100 mg 0 (PYRIDIUM) 100 MG tablet by mouth 3 (three) times daily as needed for Pain. Active traMADol (ULTRAM) 50 mg Take 50 mg by 0 tablet mouth every 6 (six) hours as needed for Pain. Active tiZANidine (ZANAFLEX) 4 Take 4 mg by 0 MG tablet mouth every 6 (six) hours as needed. Active phenytoin (DILANTIN) 100 Take 100 mg 0 MG ER capsule by mouth every morning . Active phenytoin (DILANTIN) 100 Take 300 mg 0 MG ER capsule by mouth nightly. Active PHENobarbital (LUMINAL) Take 30 mg by 0 30 MG tablet mouth every morning. Active PHENobarbital (LUMINAL) Take 90 mg by 0 30 MG tablet mouth nightly. Active warfarin (COUMADIN) 5 MG Use 5 mg PO 0 tablet daily Sunday 9 through Sunday, use 2.5 mg (1/2 tab of 5 mg) po Sat and Sun. 06/03/2018 Discontinued azithromycin (ZITHROMAX) Take 250 mg 0 250 MG tablet by mouth daily Take by mouth as directed. . 05/30/2018 Discontinued warfarin (COUMADIN) 10 MG Take 10 mg by 0 tablet mouth daily. 05/30/2018 Discontinued phenytoin (DILANTIN) 30 Take 30 mg by 0 MG ER capsule mouth every morning. 05/30/2018 Discontinued phenytoin (DILANTIN) 30 Take 90 mg by 0 MG ER capsule mouth every evening. 05/30/2018 Discontinued PHENobarbital (LUMINAL) Take 100 mg 0 100 MG tablet by mouth every morning. 05/30/2018 Discontinued PHENobarbital (LUMINAL) Take 300 mg 0 100 MG tablet by mouth every evening Takes three 100 mg tablets for a total of 300 mg Qhs. 06/03/2018 Discontinued warfarin (COUMADIN) 5 MG Take 5 mg by 0 tablet mouth daily. 06/03/2018 Discontinued pantoprazole (PROTONIX) Take 40 mg by 0 40 MG tablet mouth daily. 05/30/2018 Discontinued zolpidem (AMBIEN) 10 mg Take 10 mg by 0 tablet mouth every night as needed for Insomnia. 07/03/2018 pantoprazole (PROTONIX) Take 1 tablet 60 tablet 0 40 MG tablet (40 mg total) 9 by mouth 2 (two) times daily for 30 days. 06/08/2018 cephalexin (KEFLEX) 500 Take 1 15 capsule 0 MG capsule capsule (500 9 mg total) by mouth 3 (three) times daily for 5 days. 07/03/2018 sucralfate (CARAFATE) 1 Take 1 tablet 120 tablet 0 gram tablet (1 g total) 9 by mouth 4 (four) times daily for 30 days. Active Problems Problem Noted Date Dysphagia 05/31/2018 Pyelonephritis 05/30/2018 Hematemesis with nausea 05/29/2018 Overview: Added automatically from request for surgery [id number] Hematemesis, presence of nausea not specified 05/29/2018 Overview: Added automatically from request for surgery [id number] Coronary artery disease Diabetes mellitus Hyperlipidemia Hypertension Pulmonary emboli Seizures Stroke (cerebrum) Encounters Care Team Description Date Type Specialty Alin Rodas MD 06/03/2018 Anesthesia Event Amrik Dale MD UPPER ENDOSCOPY,BIOPSY 06/03/2018 Surgery 06/03/2018 Orders Only General Internal Medicine Aakash Marquez MD 05/31/2018 Anesthesia Event 05/30/2018 Travel Ravi Zabala MD Ruiz, Heine, MD Bajoyo, Aries Palmejar, MD Pyelonephritis (Primary Dx); Vomiting without nausea, intractability of vomiting not specified, unspecified vomiting type; Diabetes mellitus type 1, controlled, insulin dependent (HCC); Lashawn-Elliott tear; Seizures (HCC); Hematemesis with nausea; Coronary artery disease without angina pectoris, unspecified vessel or lesion type, unspecified whether [place] or transplanted heart; Hyperlipidemia, unspecified hyperlipidemia type; Hematemesis, presence of nausea not specified; Esophagitis 05/29/2018 [facility] General Internal Medicine - Encounter 06/03/2018 after 08/08/2017 Social History Date Tobacco Use Types Packs/Day Years Used Never Smoker Smokeless Tobacco: Never Used Alcohol Use Drinks/Week oz/Week Comments No Alcohol Habits Answer Date Recorded How often do you have a drink containing alcohol? Never 05/29/2018 How many drinks containing alcohol do you have on Not asked a typical day when you are drinking? How often do you have six or more drinks on one Not asked occasion? Sex Assigned at Date Recorded Not on file Industry Job Start Date Occupation Not on file Not on file Not on file Travel End Travel History Travel Start No recent travel history available. Last Filed Vital Signs Time Taken Vital Sign Reading 06/03/2018 7:12 PM CDT Blood Pressure 119/68 06/03/2018 7:12 PM CDT Pulse 56 06/03/2018 7:12 PM CDT Temperature 36.5 C (97.7 F) 06/03/2018 7:12 PM CDT Respiratory Rate 18 06/03/2018 7:12 PM CDT Oxygen Saturation 94% - Inhaled Oxygen - Concentration 06/03/2018 2:03 PM CDT Weight 72.6 kg (160 lb) 06/03/2018 2:03 PM CDT Height 160 cm (5' 3") 06/03/2018 2:03 PM CDT Body Mass Index 28.34 Plan of Treatment Not on file Procedures Comments Procedure Name Priority Date/Time Associated Diagnosis RHYTHM STRIP - SCAN 06/25/2018 11:22 AM CDT REPORT OF PROCEDURE - 06/05/2018 ENDOSCOPY SCAN 11:03 AM CDT RHYTHM STRIP - SCAN 06/05/2018 11:03 AM CDT POCT-GLUCOSE METER Routine 06/03/2018 5:14 PM CDT REPORT OF PROCEDURE - 06/03/2018 ENDOSCOPY URL 3:48 PM CDT TISSUE EXAM AP Routine 06/03/2018 3:33 PM CDT UPPER ENDOSCOPY,BIOPSY 06/03/2018 Hematemesis, presence of 3:00 PM CDT nausea not specified ECG 12-LEAD Routine 06/03/2018 1:38 PM CDT Procedure Note - Interface, External Ris In - 06/03/2018 1:40 PM CDT Ventricula r Rate 58 BPM Atrial Rate 58 BPM P-R Interval 168 ms QRS Duration 92 ms Q-T Interval 436 ms QTC Calculatio n(Bazett) 428 ms P [place] 22 degrees R [place] -6 degrees T [place] 42 degrees Sinus bradycardi a Nonspecifi c T wave abnormalit y Abnormal ECG When compared with ECG of 4 22:35, PREVIOUS ECG IS PRESENT ECG 12-LEAD Routine 06/03/2018 1:38 PM CDT POCT-GLUCOSE METER Routine 06/03/2018 11:55 AM CDT POCT-GLUCOSE METER Routine 06/03/2018 5:27 AM CDT CBC W/PLT COUNT & AUTO Routine 06/03/2018 DIFFERENTIAL 3:25 AM CDT PROTHROMBIN TIME/INR Routine 06/03/2018 3:25 AM CDT CBC W/PLT COUNT & AUTO Routine 06/03/2018 DIFFERENTIAL 3:25 AM CDT POCT-GLUCOSE METER Routine 06/02/2018 9:04 PM CDT POCT-GLUCOSE METER Routine 06/02/2018 4:24 PM CDT POCT-GLUCOSE METER Routine 06/02/2018 11:38 AM CDT CBC W/PLT COUNT & AUTO Routine 06/02/2018 DIFFERENTIAL 5:27 AM CDT BASIC METABOLIC PANEL (7) Routine 06/02/2018 5:27 AM CDT CBC W/PLT COUNT & AUTO Routine 06/02/2018 DIFFERENTIAL 5:27 AM CDT PROTHROMBIN TIME/INR Routine 06/02/2018 5:27 AM CDT POCT-GLUCOSE METER Routine 06/01/2018 8:30 PM CDT POCT-GLUCOSE METER Routine 06/01/2018 4:36 PM CDT POCT-GLUCOSE METER Routine 06/01/2018 11:46 AM CDT CBC W/PLT COUNT & AUTO Routine 06/01/2018 DIFFERENTIAL 9:26 AM CDT CBC W/PLT COUNT & AUTO Routine 06/01/2018 DIFFERENTIAL 9:26 AM CDT POCT-GLUCOSE METER Routine 06/01/2018 5:22 AM CDT PROTHROMBIN TIME/INR Routine 06/01/2018 4:45 AM CDT POCT-GLUCOSE METER Routine 05/31/2018 8:32 PM CDT POCT-GLUCOSE METER Routine 05/31/2018 4:22 PM CDT POCT-GLUCOSE METER Routine 05/31/2018 11:18 AM CDT POCT-GLUCOSE METER Routine 05/31/2018 5:08 AM CDT CBC W/PLT COUNT & AUTO Routine 05/31/2018 DIFFERENTIAL 4:36 AM CDT CBC W/PLT COUNT & AUTO Routine 05/31/2018 DIFFERENTIAL 4:36 AM CDT BASIC METABOLIC PANEL (7) Routine 05/31/2018 4:36 AM CDT PROTHROMBIN TIME/INR Routine 05/31/2018 4:36 AM CDT POCT-GLUCOSE METER Routine 05/30/2018 8:52 PM CDT POCT-GLUCOSE METER Routine 05/30/2018 5:00 PM CDT POCT-GLUCOSE METER Routine 05/30/2018 11:58 AM CDT BASIC METABOLIC PANEL (7) STAT 05/30/2018 4:12 AM CDT CBC W/PLT COUNT & AUTO STAT 05/30/2018 DIFFERENTIAL 12:12 AM CDT PT/APTT STAT 05/30/2018 12:12 AM CDT LACTIC ACID, VENOUS STAT 05/30/2018 12:12 AM CDT HEPATIC FUNCTION PANEL STAT 05/30/2018 12:12 AM CDT BASIC METABOLIC PANEL (7) STAT 05/30/2018 12:12 AM CDT LIPASE STAT 05/30/2018 12:12 AM CDT CBC W/PLT COUNT & AUTO STAT 05/30/2018 DIFFERENTIAL 12:[address] ABDOMEN & PELVIS - STAT 05/29/2018 RENAL STONE EVALUATION 10:28 PM CDT WITHOUT IV CONTRAST URINALYSIS W/ REFLEX STAT 05/29/2018 URINE CULTURE 10:13 PM CDT URINE CULTURE STAT 05/29/2018 10:13 PM CDT after 08/08/2017 Results * RHYTHM STRIP - SCAN (06/25/2018 11:22 AM CDT) Only the most recent of 2 results within the time period is included. Narrative Performed At * EKG-SCANNED (06/05/2018 11:03 AM CDT) Narrative Performed At * POC-Glucose meter (06/03/2018 5:14 PM CDT) Only the most recent of 17 results within the time period is included. POC-Glucose Meter 97Comment: TESTED AT [facility] 70 - 110 mg/dL [id number] [facility] [id number] Specimen Blood Performing Organization Address City/State/Zipcode Phone Number [facility] [address] [place] [address] [facility] * REPORT OF PROCEDURE - ENDOSCOPY URL (06/03/2018 3:48 PM CDT) Narrative Performed At * Tissue Exam (06/03/2018 3:33 PM CDT) Case Report Surgical Pathology [facility] Report Case: [id number] Authorizing Provider:Amrik Dale MDCollectmoraima d: 06/03/2018 1533 Ordering Location: [facility] ENDOSCOPY SERVICESReceived: 06/04/2018 0903 Pathologist: Nanci Nassar MD Specimens: A) - Antrum, bx B) - Stomach,Body, bx C) - Esophagus, irregular z line bx DIAGNOSIS A. STOMACH, ANTRUM, BIOPSY [facility] - NON-SPECIFIC REACTIVE CHANGES - NEGATIVE FOR ACTIVE INFLAMMATION, METAPLASIA OR DYSPLASIA - WARTHIN STARRY STAIN NEGATIVE FOR HELICOBACTER PYLORI ORGANISMS B. STOMACH, BODY, BIOPSY - OXYNTIC MUCOSA WITH NO DIAGNOSTIC ABNORMALITY - WARTHIN STARRY STAIN NEGATIVE FOR HELICOBACTER PYLORI ORGANISMS C. ESOPHAGUS, BIOPSY - REFLUX ESOPHAGITIS - GASTRIC COLUMNAR MUCOSA WITH CHRONIC ACTIVE INFLAMMATION AND MUCOSAL EROSION - NEGATIVE FOR INTESTINAL METAPLASIA OR DYSPLASIA Signing Pathologist Direct Phone Line: [phone] CPT Code(s) 80082 X 3, 04327 X 2 [facility] CLINICAL HISTORY Hematemesis. Procedure upper [facility] endoscopy SPECIMEN SOURCE A. Antrum biopsy. B. Stomach [facility] body biopsy. C. Irregular Z-line biopsy GROSS DESCRIPTION The instrument, containers, [facility] paperwork, and cassettes all read [id number]. Received in formalin labeled with the patient's name (Juan Luis) and medical record number. Specimen A: Received in formalin labeled as "antrum" are two tissues 2 x 2 x 1 and 3 x 2 x 1 mm, all in cassette A1. Specimen B: Received in formalin labeled as "stomach body" are two tissues 2 x 2 x 1 and 4 x 1 x 1 mm, all submitted in cassette B1. Specimen C: Received in formalin labeled as "esophagus" is one tissue 2 x 2 x 1 mm, all in cassette C1. JF/ew SPECIAL STUDIES The interpretation of this [facility] case included the use of immunohistochemistry or special stains. Immunohistochemistry technical testing was performed at [facility], Pathology Laboratory where it was developed and its performance characteristics were determined. It has not been cleared or approved by the U.S. Food and Drug Administration. The FDA has determined that such clearance or approval is not necessary. The test is used for clinical purposes. It should not be regarded as investigational or for research. This laboratory is certified under the Clinical Laboratory Improvement Amendments of 1988 (CLIA-88) as qualified to perform high complexity clinical laboratory testing. Specimen Tissue Tissue - Stomach structure (body structure) Tissue - Esophageal structure (body structure) Performing Organization Address City/[facility]/Zipcode Phone Number [facility] [address] [place] [address] * ECG 12 lead (06/03/2018 1:38 PM CDT) Specimen Narrative Performed At Ventricular Rate 58 BPM GE MUSE Atrial Rate 58 BPM P-R Interval 168 ms QRS Duration 92 ms Q-T Interval 436 ms QTC Calculation(Bazett) 428 ms P [place] 22 degrees R [place] -6 degrees T [place] 42 degrees Sinus bradycardia Nonspecific T wave abnormality Abnormal ECG When compared with ECG of 03-FEB-2004 22:35, PREVIOUS ECG IS PRESENT Procedure Note Interface, External Ris In - 06/04/2018 6:22 AM CDT Ventricular Rate 58 BPM Atrial Rate 58 BPM P-R Interval 168 ms QRS Duration 92 ms Q-T Interval 436 ms QTC Calculation(Bazett) 428 ms P [place] 22 degrees R [place] -6 degrees T [place] 42 degrees Sinus bradycardia Nonspecific T wave abnormality Abnormal ECG When compared with ECG of 03-FEB-2004 22:35, PREVIOUS ECG IS PRESENT Performing Organization Address City/[facility] Phone Number [facility] * CBC with platelet count + automated diff (06/03/2018 3:25 AM CDT) Only the most recent of 5 results within the time period is included. WBC 6.4 4.0 - 10.0 K/L [facility] RBC 3.73 (L) 4.00 - 5.00 M/L [facility] Hemoglobin 11.9 (L) 12.0 - 15.5 GM/DL [facility] Hematocrit 35.6 (L) 36.0 - 46.0 % [facility] MCV 95.4 82.0 - 99.0 fL [facility] MCH 31.9 27.0 - 33.0 pg [facility] MCHC 33.4 32.0 - 36.0 GM/DL [facility] RDW 13.2 12.0 - 15.0 % [facility] Platelets 229 150 - 430 K/CU MM [facility] MPV 10.0Comment: MPV-Approximately 6.0 - 11.5 fL [facility] 20% positive bias due to method change. nRBC 0 0 - 0 /100 WBC [facility] % Neutros 51 % [facility] % Lymphs 34 % [facility] % Monos 8 % [facility] % Eos 7 % [facility] % Baso 1 % [facility] # Neutros 3.29 1.80 - 8.00 K/L [facility] # Lymphs 2.15 1.48 - 4.50 K/L [facility] # Monos 0.52 0.00 - 1.30 K/L [facility] # Eos 0.42 0.00 - 0.50 K/L [facility] # Baso 0.03 0.00 - 0.20 K/L [facility] Immature 0 0 - 0 % [facility] Granulocytes-Relative Specimen Blood Performing Organization Address [facility]/Zipcode Phone Number [facility] [address] [place] [address] * Prothrombin time/INR (06/03/2018 3:25 AM CDT) Only the most recent of 4 results within the time period is included. Protime 18.3 (H) 11.8 - 14.4 seconds [facility] INR 1.5 1.2 - 1.5 [facility] Specimen Blood Narrative Performed At RECOMMENDED COUMADIN/WARFARIN INR THERAPY RANGES [facility] STANDARD DOSE: 2.0 - 3.0 Includes: PROPHYLAXIS for venous thrombosis, systemic embolization; TREATMENT for venous thrombosis and/or pulmonary embolus. HIGH RISK: Target INR is 2.5-3.5 for patients with mechanical heart valves. Performing Organization Address City/[facility] Phone Number [facility] [address] [place] [address] * Basic Metabolic Panel (06/02/2018 5:27 AM CDT) Only the most recent of 4 results within the time period is included. Sodium 138 135 - 148 meq/L [facility] Potassium 3.8 3.5 - 5.5 meq/L [facility] Chloride 105 98 - 106 meq/L [facility] CO2 24 20 - 31 meq/L [facility] BUN 5 (L) 10 - 26 mg/dL [facility] Creatinine 0.68 0.50 - 1.20 mg/dL [facility] Glucose 93 70 - 110 mg/dL [facility] Calcium 8.5 8.5 - 10.5 mg/dL [facility] EGFR Comment: INSUFFICIENT CLINICAL mL/min/1.73 sq m [facility] DATA TO CALCULATE ESTIMATED GFR. Specimen Blood Performing Organization Address [facility] Phone Number [facility] [address] [place] [address] * PT/aPTT (05/30/2018 12:12 AM CDT) Protime 37.8 (H) 11.8 - 14.4 seconds [facility] INR 4.0 (H) 1.2 - 1.5 [facility] PTT 56.5 (H) 23.2 - 36.1 seconds [facility] Specimen Blood Narrative Performed At RECOMMENDED COUMADIN/WARFARIN INR THERAPY RANGES [facility] STANDARD DOSE: 2.0 - 3.0 Includes: PROPHYLAXIS for venous thrombosis, systemic embolization; TREATMENT for venous thrombosis and/or pulmonary embolus. HIGH RISK: Target INR is 2.5-3.5 for patients with mechanical heart valves. Performing Organization Address [facility] Number [address] [address] * Lactic acid, venous (05/30/2018 12:12 AM CDT) Lactate, Venous 0.8Comment: Specimen slightly 0.5 - 2.2 mmol/L [facility] hemolyzed Specimen Blood Performing Organization Address [facility] Number [place] [phone] [place] [address] * Lipase (05/30/2018 12:12 AM CDT) Lipase 22 8 - 78 U/L [facility] Specimen Blood Performing Organization Address [facility] Number [facility] [address] [place] [address] * Hepatic function panel (05/30/2018 12:12 AM CDT) Protein, Total 7.2 6.0 - 8.5 gm/dL [facility] Albumin 3.8 3.5 - 5.0 g/dL [facility] Total Bilirubin 0.2 0.1 - 1.3 mg/dL [facility] Bilirubin, Direct 0.1 0.0 - 0.5 mg/dL [facility] Alkaline Phosphatase 81 30 - 115 U/L [facility] AST 16 5 - 40 U/L [facility] ALT 11 6 - 50 U/L [facility] Specimen Blood Performing Organization Address City/State/Zipcode Phone Number [facility] [address] [place] [address] * CT abdomen & pelvis - renal stone evaluation without iv contrast (05/29/2018 10:28 PM CDT) Specimen Narrative Performed At FINAL REPORT [facility] CT abdomen and pelvis without intravenous contrast. INDICATION: BACK PAIN DYSURIA COMPARISON: 02/03/2004 TECHNIQUE: Multiple contiguous transaxial images of the abdomen and pelvis were obtained without intravenous contrast.This exam was performed according to our departmental dose optimization program which includes automated exposure control, adjustment of the mA and/or kV according to patient size and/or use of iterative reconstructive technique. FINDINGS: Lack of intravenous contrast limits evaluation of the parenchymal and vascular organs. The lung bases demonstrate atelectasis. The osseous structures demonstrate mild degenerative change. The unenhanced liver, spleen, pancreas, and adrenal glands are unremarkable. The gallbladder is absent. There is no biliary dilatation. The stomach and duodenum are unremarkable. Both kidneys are unremarkable without stones or hydronephrosis. There is nonspecific wall thickening of the urinary bladder which can be correlated with urinalysis and urine cytology. The uterus is absent. No pelvic masses are seen. There is no free fluid in the pelvis. There is surgical anastomosis at the proximal sigmoid colon. There is scattered colonic diverticulosis without acute diverticulitis. The appendix is not clearly visualized. There are vascular calcifications. There is no fluid collection or lymphadenopathy. IMPRESSION: 1. No stones, hydronephrosis or hydroureter. 2. Nonspecific bladder wall thickening which can be correlated with urinalysis. 3. Colonic diverticulosis. 4. Status post cholecystectomy and hysterectomy. Signed: Guilherme Price MD Report Verified Date/Time:05/29/2018 22:39:39 Reading Location: [facility] B1 [id number] [facility] Consult Reading Room Procedure Note Interface, External Ris In - 05/29/2018 10:41 PM CDT FINAL REPORT CT abdomen and pelvis without intravenous contrast. INDICATION: BACK PAIN DYSURIA COMPARISON: 02/03/2004 TECHNIQUE: Multiple contiguous transaxial images of the abdomen and pelvis were obtained without intravenous contrast. This exam was performed according to our departmental dose optimization program which includes automated exposure control, adjustment of the mA and/or kV according to patient size and/or use of iterative reconstructive technique. FINDINGS: Lack of intravenous contrast limits evaluation of the parenchymal and vascular organs. The lung bases demonstrate atelectasis. The osseous structures demonstrate mild degenerative change. The unenhanced liver, spleen, pancreas, and adrenal glands are unremarkable. The gallbladder is absent. There is no biliary dilatation. The stomach and duodenum are unremarkable. Both kidneys are unremarkable without stones or hydronephrosis. There is nonspecific wall thickening of the urinary bladder which can be correlated with urinalysis and urine cytology. The uterus is absent. No pelvic masses are seen. There is no free fluid in the pelvis. There is surgical anastomosis at the proximal sigmoid colon. There is scattered colonic diverticulosis without acute diverticulitis. The appendix is not clearly visualized. There are vascular calcifications. There is no fluid collection or lymphadenopathy. IMPRESSION: 1. No stones, hydronephrosis or hydroureter. 2. Nonspecific bladder wall thickening which can be correlated with urinalysis. 3. Colonic diverticulosis. 4. Status post cholecystectomy and hysterectomy. Signed: Guilherme Price MD Report Verified Date/Time: 05/29/2018 22:39:39 Reading Location: [facility] C013X [facility] Consult Reading Room Performing Organization Address City/State/Zipcode Phone Number [facility] * Urinalysis w/Microscopic + Reflex to Culture (05/29/2018 10:13 PM CDT) Color, UA Yellow [facility] Clarity, UA Cloudy [facility] Specific [place], UA 1.017 1.001 - 1.035 [facility] pH, UA 6.0 5.0 - 8.0 [facility] Protein, UA Negative Negative [facility] [facility] Glucose, UA Negative Negative [facility] Ketones, UA Negative Negative [facility] Bilirubin, UA Negative Negative [facility] Blood, UA Large (A) Negative [facility] Nitrite, UA Negative Negative [facility] Leukocytes, UA Large (A) Negative [facility] Urobilinogen, UA <1.0 0.2 - 1.0 mg/dL [facility] RBC, UA 583 /HPF [facility] WBC, UA 15 /HPF [facility] Bacteria, UA Occasional [facility] Mucus Rare [facility] Squam Epithel, UA 6 /HPF [facility] Specimen Source [facility] Specimen Urine Performing Organization Address City/[facility]/Zipcode Phone Number [facility] [id number] [place] [address] * Urine culture (05/29/2018 10:13 PM CDT) Result >100,000 col/mL skin roney [facility] Specimen Urine Performing Organization Address City/[facility]/Zipcode Phone Number [facility] [phone] [place] [address] after 08/08/2017 Insurance Payer Benefit Subscriber ID Type Phone Address Plan / Group [employer] xxxxxxxx [facility] [place] [id number] Advance Directives For more information, please contact: [facility] [address] [place] [address] Date Inactivated Comments Code Status Date Activated 06/03/2018 11:35 PM Full Code 05/30/2018 2:52 AM This code status was determined by: Patient
--- OUTSIDE RECORDS SUMMARY | 2018-08-09 11:13 | XMS REPORT | Continuity of Care Document ---
Author Author [facility] Interface Address Unknown Phone Unavailable Problems Problem Status Onset Date Classification Date Reported Comments Source CHEST PAIN IN ADULT,ARM PAIN,RT,SOB-SHOR Active 07/08/2018 [facility] VOMITING / ARM PAIN Active 07/08/2018 [facility] COUMADIN TOXICITY Active 01/10/2018 [facility] NOSEBLEED/COUGHING UP BLOOD Active 01/10/2018 [facility] COUMADIN TOXICITY Active 01/10/2018 [facility] Discharge Diagnosis: Urinary tract infection 05/29/2016 06/01/2016 [facility] ABD PAIN Active 05/28/2016 [facility] SENT BY Active 07/14/2011 [facility] Anxiety Active Problem 07/17/2011 [facility] Back pain Active Problem 07/17/2011 [facility] Chest pain Active Problem 07/17/2011 [facility] Deep vein thrombosis Active Problem 07/17/2011 [facility] Depression Active Problem 07/17/2011 [facility] Dysmenorrhea Active Problem 07/17/2011 [facility] Fracture of knee-cap Active Problem 07/17/2011 [facility] Hay fever Active Problem 07/17/2011 [facility] Incontinence Active Problem 07/17/2011 [facility] Migraine Active Problem 07/17/2011 [facility] Nausea and vomiting Active Problem 07/17/2011 [facility] Neck pain Active Problem 07/17/2011 [facility] Osteoarthritis Active Problem 07/17/2011 [facility] Panic disorder Active Problem 07/17/2011 [facility] Pulmonary embolism Active Problem 07/17/2011 [facility] Seizure Active Problem 07/17/2011 [facility] Shoulder pain Active Problem 07/17/2011 [facility] Stroke Active Problem 07/17/2011 [facility] Suicide attempt Active Problem 07/17/2011 [facility] UTI - Urinary tract infection Active Problem 07/17/2011 [facility] Anxiety Active Problem 07/11/2018 [facility] Back pain Active Problem 07/11/2018 [facility] Chest pain Active Problem 07/11/2018 [facility] Deep vein thrombosis Active Problem 07/11/2018 [facility] Depression Active Problem 07/11/2018 [facility] Diabetes Active Problem 07/11/2018 [facility] Dysmenorrhea Active Problem 07/11/2018 [facility] Epileptic seizure Active Problem 07/11/2018 [facility] Fracture of knee-cap Active Problem 07/11/2018 [facility] Hay fever Active Problem 07/11/2018 [facility] HTN (<span ID="[id number]">Confirmed</span>) Active Problem 07/11/2018 [facility] Incontinence Active Problem 07/11/2018 [facility] Colon cancer Active Problem 07/11/2018 [facility] Migraine Active Problem 07/11/2018 [facility] Nausea and vomiting Active Problem 07/11/2018 [facility] Neck pain Active Problem 07/11/2018 [facility] Osteoarthritis Active Problem 07/11/2018 [facility] Panic disorder Active Problem 07/11/2018 [facility] Pulmonary embolism Active Problem 07/11/2018 [facility] Seizure Active Problem 07/11/2018 [facility] Shoulder pain Active Problem 07/11/2018 [facility] Sleep apnea Active Problem 07/11/2018 [facility] Stroke Active Problem 07/11/2018 [facility] Suicide attempt Active Problem 07/11/2018 [facility] UTI - Urinary tract infection Active Problem 07/11/2018 [facility] CAD (<span ID="[id number]">Confirmed</span>) Active Problem 07/11/2018 [facility] Deep vein thrombosis (<span ID="[id number]">Confirmed</span>) Active Problem 07/11/2018 [facility] Hypertension Active Problem 07/11/2018 [facility] POISONING BY ANTICOAGULANTS, ACCIDENTAL, Active [facility] CHEST PAIN, UNSPECIFIED Active [facility] PAIN IN RIGHT ARM Active [facility] SHORTNESS OF BREATH Active [facility] Medications Medication Details Route Status Patient Instructions Ordering Provider Order Date Source Dilantin 300 mg, 3 cap, Route: PO, Drug form: ERCAP, Bedtime, Dosing Weight 72.727, kg, Start date: 07/09/18 21:00:00 CDT, Duration: 30 day, Stop date: 08/07/18 21:00:00 CDTNotes: (Same as: Dilantin) Do not open, crush, or chew. Inactive 07/10/2018 [facility] Phenobarbital 90 mg, 3 tab, Route: PO, Drug form: TAB, Bedtime, Dosing Weight 72.727, kg, Start date: 07/09/18 21:00:00 CDT, Duration: 30 day, Stop date: 08/07/18 21:00:00 CDTNotes: (Same as: Lexie Simon Sol foton) Inactive 07/10/2018 [facility] Lipitor 20 mg, 2 tab, Route: PO, Drug form: TAB, Bedtime, Dosing Weight 72.727, kg, Start date: 07/09/18 21:00:00 CDT, Duration: 30 day, Stop date: 08/07/18 21:00:00 CDTNotes: (Same As: Lipitor) Inactive 07/10/2018 [facility] Acetaminophen 300 MG / Codeine Phosphate 30 MG Oral Tablet [Tylenol with Codeine #3] 1 tab, PO, Q6H, PRN Pain, X 7 day, # 28 tab, 0 Refill(s) Active 07/09/2018 [facility] Acetaminophen 300 MG / Codeine Phosphate 30 MG Oral Tablet [Tylenol with Codeine #3] 1 tab, PO, Q6H, PRN Pain, X 7 day, # 28 tab, 0 Refill(s), given to patient Inactive 07/09/2018 [facility] Warfarin 5 mg, 1 tab, Route: PO, Drug form: TAB, Daily, Dosing Weight 72.727, kg, Start date: 07/09/18 17:00:00 CDT, Duration: 30 day, Stop date: 08/07/18 17:00:00 CDTNotes: Nurse to ensure documentation of patient education per anticoagulation policy. Avoid large intake of vitamin-K containing foods diet. WASTE: F/P - P Waste Black; E - P Waste Black (Same As: Coumadin) Inactive 07/09/2018 [facility] atorvastatin 10 mg oral tablet 20 mg=2 tab, PO, Bedtime, 0 Refill(s) Active 07/09/2018 [facility] Lyrica 75 mg, 1 cap, Route: PO, Drug form: CAP, Daily, Dosing Weight 72.727, kg, Start date: 07/09/18 9:00:00 CDT, Duration: 30 day, Stop date: 08/07/18 9:00:00 CDTNotes: (Same as: Lyrica) Inactive 07/09/2018 [facility] Dilantin 100 mg, 1 cap, Route: PO, Drug form: ERCAP, QAM, Dosing Weight 72.727, kg, Start date: 07/09/18 9:00:00 CDT, Duration: 30 day, Stop date: 08/07/18 9:00:00 CDTNotes: (Same as: Dilantin) Do not open, crush, or chew. Inactive 07/09/2018 [facility] Omeprazole 20 mg, Route: PO, Daily, Dosing Weight 72.727, kg, Start date: 07/09/18 9:00:00 CDT, Duration: 30 day, Stop date: 08/07/18 9:00:00 CDT Inactive 07/09/2018 [facility] Citalopram 20 mg, 2 tab, Route: PO, Drug form: TAB, Daily, Dosing Weight 72.727, kg, Start date: 07/09/18 9:00:00 CDT, Duration: 30 day, Stop date: 08/07/18 9:00:00 CDT Inactive 07/09/2018 [facility] Saline Flush 0.9% 10 ml, Route: IVP, Drug Form: INJ, Dosing Weight 72.727, kg, Q12H, Start date: 07/09/18 9:00:00 CDT, Duration: 30 day, Stop date: 08/07/18 21:00:00 CDTNotes: (Same as: BD Posiflush) Inactive 07/09/2018 [facility] Protonix 40 mg, 1 tab, Route: PO, Drug form: ECTAB, Daily, Start date: 07/09/18 9:00:00 CDT, Duration: 30 day, Stop date: 08/07/18 9:00:00 CDTNotes: Tablet should not be chewed or crushed. (Same as: Protonix) Inactive 07/09/2018 [facility] Phenobarbital 30 mg, 1 tab, Route: PO, Drug form: TAB, Breakfast, Dosing Weight 72.727, kg, Start date: 07/09/18 8:00:00 CDT, Duration: 30 day, Stop date: 08/07/18 8:00:00 CDTNotes: (Same as: Lexie Simon Sol foton) Inactive 07/09/2018 [facility] Morphine 4 mg, 1 mL, Route: IVP, Drug form: SOLN, Q4H, Dosing Weight 72.727, kg, PRN Pain Score 7-10, Start date: 07/09/18 2:11:00 CDT, Duration: 30 day, Stop date: 08/08/18 2:10:00 CDTNotes: (Same as:MORPhine Sulfate) Inactive 07/09/2018 [facility] Ketorolac 15 mg, 1 mL, Route: IVP, Drug form: INJ, Q6H, Dosing Weight 72.727, kg, PRN Pain Score 4-6, Start date: 07/09/18 0:03:00 CDT, Duration: 4 day, Stop date: 07/13/18 0:02:00 CDTNotes: (Same as:Toradol) IV bolus must be given >15 seconds. Give IM administration slowly and deeply into the muscle. Not for use > 4 days. Inactive 07/09/2018 [facility] Saline Flush 0.9% 10 ml, Route: IVP, Drug Form: INJ, Dosing Weight 72.727, kg, PRN, PRN Line Flush, Start date: 07/09/18 0:02:00 CDT, Duration: 30 day, Stop date: 08/08/18 0:01:00 CDTNotes: (Same as: BD Posiflush) Inactive 07/09/2018 [facility] Nitroglycerin 0.4 mg, 1 tab, Route: SL, Drug form: TAB, Q5Min, Dosing Weight 72.727, kg, PRN Chest Pain, Start date: 07/09/18 0:02:00 CDT, Duration: 3 doses or times, Stop date: Limited # of timesNotes: (Same as:N itroquick, Nitrostat) "Do Not Crush" Sublingual tablet Inactive 07/09/2018 [facility] pneumococcal capsular polysaccharide type 1 vaccine / pneumococcal capsular polysaccharide type 10A vaccine / pneumococcal capsular polysaccharide type 11A vaccine / pneumococcal capsular polysaccharide type 12F vaccine / pneumococcal capsular polysacchar 0.5 mL, Route: IM, Drug Form: INJ, ONCALL, Start date: 07/08/18 23:16:45 CDT, Stop date: 08/07/18 23:11:45 CDTNotes: (Same as: Pneumovax 23) Refrigerate No Longer Active 07/09/2018 [facility] Ketorolac 15 mg, Route: IVP, Drug form: INJ, ONCE, Dosing Weight 72.727, kg, Priority: STAT, Start date: 07/08/18 21:35:00 CDT, Stop date: 07/08/18 21:35:00 CDT Inactive 07/09/2018 [facility] tramadol hydrochloride 50 MG Oral Tablet 50 mg=1 tab, PO, Q12H, PRN Pain, X 10 day, # 20 tab, 0 Refill(s) Active 05/29/2016 [facility] tramadol hydrochloride 50 MG Oral Tablet 50 mg, Route: PO, Drug form: TAB, ONCE, Dosing Weight 63.636, kg, Priority: STAT, Start date: 05/29/16 1:57:00 CDT, Stop date: 05/29/16 1:57:00 CDT Inactive 05/29/2016 [facility] ciprofloxacin 500 mg oral tablet 500 mg=1 tab, PO, Q12H, X 10 day, # 20 tab, 0 Refill(s) Active 05/29/2016 [facility] Diphenhydramine 25 mg, Route: IVP, ONCE, Dosing Weight 63.636, kg, Priority: STAT, Start date: 05/28/16 23:59:00 CDT, Stop date: 05/28/16 23:59:00 CDT No Longer Active 05/29/2016 [facility] Prednisone 60 mg, Route: PO, Drug form: TAB, ONCE, Dosing Weight 63.636, kg, Priority: STAT, Start date: 05/28/16 23:59:00 CDT, Stop date: 05/28/16 23:59:00 CDT No Longer Active 05/29/2016 [facility] Ciprofloxacin 400 mg, Route: IVPB, ONCE, Dosing Weight 63.636, kg, Priority: STAT, Start date: 05/28/16 23:59:00 CDT, Stop date: 05/28/16 23:59:00 CDT No Longer Active 05/29/2016 [facility] Ceftriaxone 1 gm, Route: IVPB, Drug form: PDR/INJ, ONCE, Dosing Weight 63.636, kg, Priority: STAT, Start date: 05/28/16 23:04:00 CDT, Stop date: 05/28/16 23:04:00 CDT Inactive 05/29/2016 [facility] Ondansetron 4 mg, Route: IVP, Drug form: INJ, ONCE, Dosing Weight 63.636, kg, Priority: STAT, Start date: 05/28/16 22:22:00 CDT, Stop date: 05/28/16 22:22:00 CDT Inactive 05/29/2016 [facility] Morphine 4 mg, Route: IVP, ONCE, Dosing Weight 63.636, kg, Priority: STAT, Start date: 05/28/16 22:22:00 CDT, Stop date: 05/28/16 22:22:00 CDT Inactive 05/29/2016 [facility] Ondansetron 4 mg, Route: IVP, Drug form: INJ, ONCE, Dosing Weight 63.636, kg, Priority: STAT, Start date: 05/28/16 20:49:00 CDT, Stop date: 05/28/16 20:49:00 CDT Inactive 05/29/2016 [facility] Morphine 4 mg, Route: IVP, ONCE, Dosing Weight 63.636, kg, Priority: STAT, Start date: 05/28/16 20:49:00 CDT, Stop date: 05/28/16 20:49:00 CDT Inactive 05/29/2016 [facility] Saline Flush 0.9% 10 mL, Route: IVP, Drug Form: INJ, Dosing Weight 72.727, kg, PRN, PRN Line Flush, Start date: 05/28/16 17:54:00 CDT, Duration: 30 day, Stop date: 06/27/16 17:53:00 CDTNotes: (Same as: BD Posiflush) No Longer Active 05/28/2016 [facility] Lovenox 40 mg/0.4 mL subcutaneous solution 40 mg, SUB-Q, Daily, 5 mL, Substitution Allowed SUB-Q Active Jeremy 07/15/2011 [facility] Lovenox 80 mg, Route: SUB-Q, ONCE, Start date: 07/15/11 0:07:00, Stop date: 07/15/11 0:07:00 SUB-Q No Longer Active Froid 07/15/2011 [facility] hydromorphone 0.5 mg, 0.25 mL, Route: IVP, Drug form: INJ, ONCE, Priority: STAT, Start date: 07/15/11 0:02:00, Stop date: 07/15/11 0:02:00 IVP No Longer Active Froid 07/15/2011 [facility] Coumadin 10 mg oral tablet 10 mg, 1 tab, PO, Daily, 30 tab, Substitution Allowed, TAB PO Active Froid 07/15/2011 [facility] Lovenox 80 mg/0.8 mL subcutaneous solution 80 mg, 0.8 ml, SUB-Q, Daily, 4 mL, Substitution Allowed, SOLN SUB-Q Active Froid 07/15/2011 [facility] Lovenox 80 mg, 0.8 mL, Route: IV, Drug form: INJ, ONCE, Start date: 07/14/11 23:02:00, Stop date: 07/14/11 23:02:00 IV No Longer Active Froid 07/15/2011 [facility] ondansetron 4 mg, 2 mL, Route: IVP, Drug form: INJ, ONCE, Priority: STAT, Start date: 07/14/11 20:30:00, Stop date: 07/14/11 20:30:00 IVP No Longer Active Froid 07/15/2011 [facility] Compton 5/325 oral tablet 2 tab, Route: PO, Drug Form: TAB, ONCE, Start date: 07/14/11 19:23:00, Stop date: 07/14/11 19:23:00 PO No Longer Active Froid 07/15/2011 [facility] Benadryl Substitution Allowed Active 07/14/2011 [facility] Unknown Home Medication Substitution Allowed Active 07/14/2011 [facility] Dilantin Substitution Allowed Active 07/14/2011 [facility] Zanaflex Substitution Allowed Active 07/14/2011 [facility] Unknown Home Medication Substitution Allowed Active 07/14/2011 [facility] Lyrica Substitution Allowed Active 07/14/2011 [facility] Unknown Home Medication Substitution Allowed Active 07/14/2011 [facility] ondansetron 4 mg, Route: IVP, Drug form: INJ, ONCE, Priority: STAT, Start date: 07/14/11 18:16:00, Stop date: 07/14/11 18:16:00 IVP No Longer Active Myrtle 07/14/2011 [facility] aspirin 325 mg tablet 325 mg, 1 tab, Route: PO, Drug form: TAB, ONCE, Priority: STAT, Start date: 07/14/11 17:49:00, Stop date: 07/14/11 17:49:00 PO No Longer Active [place] 07/14/2011 [facility] hydromorphone 1 mg, 0.5 mL, Route: IVP, Drug form: INJ, ONCE, Priority: STAT, Start date: 07/14/11 17:28:00, Stop date: 07/14/11 17:28:00 IVP No Longer Active [place] 07/14/2011 [facility] influenza virus vaccine, inactivated 0.5 mL, Route: IM, Drug Form: SUSP, Start date: 05/31/11 9:00:00, Stop date: 05/31/11 9:00:00 IM No Longer Active SYSTEM 05/31/2011 [facility] Allergies, Adverse Reactions, Alerts Substance Category Reaction Severity Reaction type Status Date Reported Comments Source prochlorperazine Assertion Drug allergy Active [facility] Immunizations Immunization Date Given Site Status Last Updated Comments Source influenza virus vaccine, inactivated 11/29/2011 Right deltoid completed [facility] influenza virus vaccine, inactivated 05/31/2011 Not Given [facility] Results Order Name Results Value Reference Range Date Interpretation Comments Source URINE AND STOOL UA Urobilinogen <=1.0 mg/dL 0.1 - 1.0 07/09/2018 [facility] URINE AND STOOL UA Spec Grav 1.026 <=1.030 07/09/2018 [facility] URINE AND STOOL UA Glucose Negative mg/dL Negative mg/dL 07/09/2018 [facility] URINE AND STOOL UA Protein Negative mg/dL Negative mg/dL 07/09/2018 [facility] URINE AND STOOL UA Blood Moderate *ABN* (07/09/18 5:29 PM) Negative 07/09/2018 [facility] URINE AND STOOL UA pH 6.0 5.0 - 8.0 07/09/2018 [facility] URINE AND STOOL UA Nitrite Negative (07/09/18 5:29 PM) Negative 07/09/2018 [facility] URINE AND STOOL UA Ketones Negative mg/dL Negative mg/dL 07/09/2018 [facility] URINE AND STOOL UA Bili Negative *NA* (07/09/18 5:29 PM) Negative 07/09/2018 [facility] URINE AND STOOL UA WBC 1 /HPF 0 - 5 07/09/2018 [facility] URINE AND STOOL UA Sq Epi Occasional /LPF Few /LPF 07/09/2018 [facility] URINE AND STOOL UA RBC 2 /HPF 0 - 2 07/09/2018 [facility] URINE AND STOOL UA Leuk Est Negative (07/09/18 5:29 PM) Negative 07/09/2018 [facility] URINE AND STOOL UA Color Yellow *NA* (07/09/18 5:29 PM) Yellow 07/09/2018 [facility] URINE AND STOOL UA Turbidity Clear (07/09/18 5:29 PM) Clear 07/09/2018 [facility] URINE AND STOOL UA Color Red 07/09/2018 [facility] URINE AND STOOL UA Leuk Est Negative (07/09/18 4:13 PM) Negative 07/09/2018 [facility] URINE AND STOOL UA Sq Epi Many /LPF Few /LPF 07/09/2018 [facility] URINE AND STOOL UA WBC 97 /HPF 0 - 5 07/09/2018 [facility] URINE AND STOOL UA Bacteria Moderate /HPF None Seen /HPF 07/09/2018 [facility] URINE AND STOOL UA Mucus Moderate /LPF None Seen /LPF 07/09/2018 [facility] URINE AND STOOL UA Urobilinogen <=1.0 mg/dL 0.1 - 1.0 07/09/2018 [facility] URINE AND STOOL UA RBC null 0 - 2 07/09/2018 [facility] URINE AND STOOL UA Blood Large *ABN* (07/09/18 4:13 PM) Negative 07/09/2018 [facility] URINE AND STOOL UA Nitrite Negative (07/09/18 4:13 PM) Negative 07/09/2018 [facility] URINE AND STOOL UA [place] Yeast Many /HPF None Seen /HPF 07/09/2018 [facility] URINE AND STOOL UA Ketones Negative mg/dL Negative mg/dL 07/09/2018 [facility] URINE AND STOOL UA Bili Negative *NA* (07/09/18 4:13 PM) Negative 07/09/2018 [facility] URINE AND STOOL UA Glucose 50 mg/dL Negative mg/dL 07/09/2018 [facility] URINE AND STOOL UA Protein 100 mg/dL Negative mg/dL 07/09/2018 [facility] URINE AND STOOL UA Spec Grav 1.043 <=1.030 07/09/2018 [facility] URINE AND STOOL UA Turbidity Marked *ABN* (5/21/19 4:13 PM) Clear 07/09/2018 [facility] URINE AND STOOL UA pH 6.0 5.0 - 8.0 07/09/2018 [facility] CARDIAC ENZYMES Troponin-I null 0.00 - 0.40 07/09/2018 [facility] CHEM PANEL Phosphorus 3.5 mg/dL 2.5 - 4.5 07/09/2018 [facility] CHEM PANEL Magnesium Lvl 2.5 mg/dL 1.8 - 2.4 07/09/2018 [facility] CHEM PANEL Bili Indirect 0.3 mg/dL 0.0 - 1.0 07/09/2018 [facility] CHEM PANEL Bili Direct 0.1 mg/dL 0.0 - 0.3 07/09/2018 [facility] CHEM PANEL Alk Phos 83 unit/L 39 - 136 07/09/2018 [facility] CHEM PANEL Bili Total 0.4 mg/dL 0.2 - 1.3 07/09/2018 [facility] CHEM PANEL AST 21 unit/L 0 - 37 07/09/2018 [facility] CHEM PANEL Albumin Lvl 3.0 g/dL 3.5 - 5.0 07/09/2018 [facility] CHEM PANEL Globulin 4.3 g/dL 2.7 - 4.2 07/09/2018 [facility] CHEM PANEL A/G Ratio 0.7 0.7 - 1.6 07/09/2018 [facility] CHEM PANEL ALT 24 unit/L 0 - 65 07/09/2018 [facility] PANEL Total Protein 7.3 g/dL 6.4 - 8.4 07/09/2018 [facility] ELECTROLYTES AGAP 12.5 meq/L 10.0 - 20.0 07/09/2018 [facility] ELECTROLYTES eGFR 88 mL/min/1.73m2 07/09/2018 Result Comment: The eGFR is calculated using [...] should be multiplied by the estimated BMI. [facility] ELECTROLYTES CO2 24 meq/L 24 - 32 07/09/2018 [facility] ELECTROLYTES Calcium Lvl 8.4 mg/dL 8.5 - 10.5 07/09/2018 [facility] ELECTROLYTES Potassium Lvl 3.5 meq/L 3.5 - 5.1 07/09/2018 [facility] ELECTROLYTES Chloride Lvl 105 meq/L 95 - 109 07/09/2018 [facility] ELECTROLYTES Creatinine Lvl 0.74 mg/dL 0.50 - 1.40 07/09/2018 [facility] ELECTROLYTES Sodium Lvl 138 meq/L 135 - 145 07/09/2018 [facility] ELECTROLYTES Glucose Lvl 121 mg/dL 70 - 99 07/09/2018 [facility] ELECTROLYTES BUN 17 mg/dL 7 - 22 07/09/2018 [facility] HEMATOLOGY Basophils # 0.1 K/CMM 0.0 - 0.2 07/09/2018 [facility] HEMATOLOGY Eosinophils # 0.4 K/CMM 0.0 - 0.5 07/09/2018 [facility] Basophils 1.0 % 0.0 - 1.0 07/09/2018 [facility] Neutrophils # 3.7 K/CMM 1.5 - 8.1 07/09/2018 [facility] Lymphocytes # 2.5 K/CMM 1.0 - 5.5 07/09/2018 [facility] Monocytes # 0.5 K/CMM 0.0 - 0.8 07/09/2018 [facility] Lymphocytes 35.3 % 20.0 - 40.0 07/09/2018 [facility] Monocytes 6.8 % 2.0 - 12.0 07/09/2018 [facility] Eosinophils 6.1 % 0.0 - 4.0 07/09/2018 [facility] Segs 50.8 % 45.0 - 75.0 07/09/2018 [facility] MPV 8.2 fL 7.4 - 10.4 07/09/2018 [facility] Platelet 241 K/CMM 133 - 450 07/09/2018 [facility] MCV 95.2 fL 80.0 - 98.0 07/09/2018 [facility] MCH 32.3 pg 27.0 - 31.0 07/09/2018 [facility] Hct 37.1 % 36.0 - 48.0 07/09/2018 [facility] Hgb 12.6 g/dL 12.0 - 16.0 07/09/2018 [facility] MCHC 33.9 g/dL 32.0 - 36.0 07/09/2018 [facility] RDW 13.8 % 11.5 - 14.5 07/09/2018 [facility] WBC 7.2 K/CMM 3.7 - 10.4 07/09/2018 [facility] RBC 3.90 M/CMM 4.20 - 5.40 07/09/2018 [facility] LIPIDS VLDL 28 07/09/2018 [facility] LIPIDS LDL (Calculated) 102 mg/dL <=99 mg/dL 07/09/2018 [facility] LIPIDS Trig 141 mg/dL <=149 mg/dL 07/09/2018 [facility] LIPIDS HDL 50 mg/dL >=61 mg/dL 07/09/2018 [facility] Chol 180 mg/dL <=199 mg/dL 07/09/2018 [facility] LIPIDS CHD Risk 3.60 3.90 - 5.80 07/09/2018 [facility] CARDIAC ENZYMES Troponin-I null 0.00 - 0.40 07/09/2018 [facility] Neck soft tissue w contrast CT Neck soft tissue w contrast CT Clinical Indication: - swelling of neck. Comparison: None. Technique: CT of the neck is performed with a multidetector CT. Coronal and sagittal reconstructions were obtained. CT imaging was performed with exposure control parameters to reduce radiation dose. CONTRAST: 75 cc of IV Omnipaque contrast material was used for the exam. CT imaging performed at this location utilizes radiation dose optimization techniques which include one or more of the following: -Automated exposure control -Adjustment of the mA and/or kV according to patient size -Use of iterative reconstruction technique CT Radiation Dose DLP 358.86 mGy-cm FINDINGS: SOFT TISSUES: There are no neck masses noted. There are no fluid collections or abscess. SUPRAHYOID NECK: The oropharynx, oral cavity, parapharyngeal space, and retropharyngeal space are normal. INFRAHYOID NECK: There is enlargement of the lingual and palatine tonsils. The bilateral pyriform sinuses are unremarkable. The larynx, hypopharynx, epiglottis and supraglottis are normal. LYMPH NODES: Mild prominence of bilateral level II lymph nodes, right greater than the left. SALIVARY GLANDS: The submandibular and parotid glands are unremarkable. PARANASAL SINUSES : Moderate mucosal thickening in the left maxillary sinus. ORBITS: The visualized orbits are unremarkable. VASCULAR STRUCTURES: The jugular veins and carotid vessels are unremarkable. OSSEOUS STRUCTURES: No fracture or subluxation. THYROID GLANDS: The thyroid lobes are symmetric and there are no lesions. VISUALIZED LUNG APICES: There are no pulmonary masses or consolidation. IMPRESSION: Enlargement of lingual and palatine tonsils. No neck mass or fluid collection. SL: [email or web address] 07/09/2018 - - Read by: Zoe Richey MD Dictated Date/time: 07/09/18 03:41 Electronically Signed by: Zoe Richey MD 07/09/18 03:51 FINAL REPORT [facility] CARDIAC ENZYMES Troponin-I null 0.00 - 0.40 07/08/2018 [facility] CARDIAC ENZYMES CK MB null 0.5 - 3.6 07/08/2018 [facility] CARDIAC ENZYMES Total CK 96 unit/L 12 - 191 07/08/2018 [facility] CARDIAC ENZYMES BNP 9 pg/mL <=100 pg/mL 07/08/2018 [facility] CARDIAC ENZYMES CK MB Index null 0.0 - 2.5 07/08/2018 [facility] CHEM PANEL eGFR 66 mL/min/1.73m2 07/08/2018 Result Comment: The eGFR is calculated using [...] should be multiplied by the estimated BMI. [facility] CHEM PANEL BUN 14 mg/dL 7 - 22 07/08/2018 [facility] CHEM PANEL Chloride Lvl 107 meq/L 95 - 109 07/08/2018 [facility] CHEM PANEL CO2 26 meq/L 24 - 32 07/08/2018 [facility] CHEM PANEL Potassium Lvl 3.4 meq/L 3.5 - 5.1 07/08/2018 [facility] CHEM PANEL Glucose Lvl 144 mg/dL 70 - 99 07/08/2018 [facility] CHEM PANEL Globulin 4.9 g/dL 2.7 - 4.2 07/08/2018 [facility] CHEM PANEL B/C Ratio 15 6 - 25 07/08/2018 [facility] CHEM PANEL Alk Phos 91 unit/L 39 - 136 07/08/2018 [facility] CHEM PANEL Bili Total 0.2 mg/dL 0.2 - 1.3 07/08/2018 [facility] CHEM PANEL AGAP 9.4 meq/L 10.0 - 20.0 07/08/2018 [facility] CHEM PANEL A/G Ratio 0.7 0.7 - 1.6 07/08/2018 [facility] CHEM PANEL Total Protein 8.3 g/dL 6.4 - 8.4 07/08/2018 [facility] CHEM PANEL Calcium Lvl 8.7 mg/dL 8.5 - 10.5 07/08/2018 [facility] CHEM PANEL AST 19 unit/L 0 - 37 07/08/2018 [facility] CHEM PANEL Albumin Lvl 3.4 g/dL 3.5 - 5.0 07/08/2018 [facility] CHEM PANEL ALT 26 unit/L 0 - 65 07/08/2018 [facility] CHEM PANEL Sodium Lvl 139 meq/L 135 - 145 07/08/2018 [facility] CHEM PANEL Creatinine Lvl 0.93 mg/dL 0.50 - 1.40 07/08/2018 [facility] HEMATOLOGY PTT 30.1 s 22.9 - 35.8 07/08/2018 [facility] HEMATOLOGY INR 1.39 0.85 - 1.17 07/08/2018 [facility] HEMATOLOGY PT 16.8 s 12.0 - 14.7 07/08/2018 [facility] HEMATOLOGY MPV 8.3 fL 7.4 - 10.4 07/08/2018 [facility] HEMATOLOGY Platelet 271 K/CMM 133 - 450 07/08/2018 [facility] HEMATOLOGY RDW 13.8 % 11.5 - 14.5 07/08/2018 [facility] HEMATOLOGY MCV 94.2 fL 80.0 - 98.0 07/08/2018 [facility] HEMATOLOGY Hgb 13.4 g/dL 12.0 - 16.0 07/08/2018 [facility] HEMATOLOGY Hct 39.1 % 36.0 - 48.0 07/08/2018 [facility] HEMATOLOGY MCHC 34.2 g/dL 32.0 - 36.0 07/08/2018 [facility] MCH 32.2 pg 27.0 - 31.0 07/08/2018 [facility] RBC 4.15 M/CMM 4.20 - 5.40 07/08/2018 [facility] WBC 10.0 K/CMM 3.7 - 10.4 07/08/2018 [facility] Monocytes # 0.5 K/CMM 0.0 - 0.8 07/08/2018 [facility] Neutrophils # 6.2 K/CMM 1.5 - 8.1 07/08/2018 [facility] Eosinophils # 0.4 K/CMM 0.0 - 0.5 07/08/2018 [facility] Lymphocytes # 2.8 K/CMM 1.0 - 5.5 07/08/2018 [facility] Basophils # 0.1 K/CMM 0.0 - 0.2 07/08/2018 [facility] Lymphocytes 28.2 % 20.0 - 40.0 07/08/2018 [facility] Eosinophils 4.2 % 0.0 - 4.0 07/08/2018 [facility] Basophils 0.7 % 0.0 - 1.0 07/08/2018 [facility] Segs 61.6 % 45.0 - 75.0 07/08/2018 [facility] Monocytes 5.3 % 2.0 - 12.0 07/08/2018 [facility] Chest 2 views DX Chest 2 views DX Patient Name: JESUS ASCENCIO : 1955; Age: 63 years Female MR: [id number] Study: Chest 2 views DX Order Time: 07/08/2018 13:54 CDT CLINICAL INDICATION: Cough and fever - sob COMPARISON: Chest radiograph on 01/10/2018 FINDINGS: Lines: Stable position of the left chest port. Lungs: Perihilar and bibasilar interstitial opacities. No significant effusion or pneumothorax. Mediastinum: The cardiac silhouette is within normal limits of size. Midline trachea. Bones and soft tissues: No acute abnormalities. Round metallic density projects over the upper right abdomen, likely overlying artifact. IMPRESSION: Perihilar and bibasilar interstitial opacities may represent mild pulmonary edema or pneumonia. SL: [id number] 07/08/2018 - - Read by: Noam Sosa MD Dictated Date/time: 07/08/18 15:07 Electronically Signed by: Noam Sosa MD 07/08/18 15:09 FINAL REPORT [facility] Chest Pulmonary Embolism CTA Chest Pulmonary Embolism CTA Patient Name: JESUS ASCENCIO : 1955; Age: 63 years y/o Female MR: [id number] * COMPUTED TOMOGRAPHY SCAN OF THE CHEST -- CT PULMONARY ANGIOGRAPHY (pulmonary embolism protocol). History: Chest pain and back pain. History of pulmonary embolism. Imaging studies reviewed: Chest CT scan of 01/10/2018. TECHNIQUE: Initially, high-resolution (2.5 mm) helical CT images were obtained through the chest from the just above the thoracic inlet to the upper abdomen during the dynamic intravenous administration of nonionic iodinated contrast timed for maximal pulmonary arterial opacification (CT pulmonary angiogram -- pulmonary embolism protocol technique). Sagittal and coronal MIP reconstructions and 3-D rotational reconstructions reconstructions (all reconstructions obtained by postprocessing on an independent workstation) were also provided. CT imaging performed at this location utilizes radiation dose optimization techniques which include one or more of the following: -Automated exposure control. -Adjustment of the mA and/or kV according to patient size. -Use of iterative reconstruction technique. CT radiation dose DLP: 958.89 mGy-cm IMPRESSION: 1. No evidence of pulmonary embolism. 2. No evidence of an active or acute process within the chest. A hazy density bases is felt to represent dependent atelectasis. There are no pleural effusions. There is no pneumothorax. 3. No suspicious pulmonary nodules or masses or hilar/mediastinal adenopathy. No is made a tiny (2 mm) granuloma in the upper portion of the right middle lobe (image 42 of series 2). 4. The heart is normal in size. There is no pericardial effusion. 5. The thoracic aorta is unremarkable. There are no significant atherosclerotic changes, aneurysm, or dissection. 6. There are mild scattered degenerative changes involving the thoracic spine. The regional skeleton is otherwise unremarkable. 7. Left subclavian single lumen Port-A-Cath terminates in the lower superior vena cava. SL: MARYANN 07/08/2018 - - Read by: William Dawson MD Dictated Date/time: 07/08/18 18:49 Electronically Signed by: William Dawson MD 07/08/18 18:58 FINAL REPORT [facility] Ext Upper Venous Doppler Unilat US Ext Upper Venous Doppler Unilat US Clinical Indication: Pain, Limb - swelling; Comparison: None TECHNIQUE: Sonographic evaluation of the right upper extremity veins was performed using high resolution B-mode imaging, along with pulse and color Doppler imaging. FINDINGS: No sonographic evidence for DVT within the internal jugular vein, subclavian vein, axillary vein, brachial vein, radial and ulnar veins. The veins are compressible with normal color flow and augmentation demonstrated on Doppler spectral analysis. The basilic and cephalic veins are patent. REFERENCE: DEEP VEINS: internal jugular, subclavian, axillary, brachial, radial, and ulnar SUPERFICIAL: basilic, cephalic IMPRESSION: No sonographic evidence for right upper extremity DVT. SL: MADDI 07/08/2018 - - Read by: Karyn Nogueira MD Dictated Date/time: 07/08/18 15:55 Electronically Signed by: Karyn Nogueira MD 07/08/18 15:56 FINAL REPORT [facility] Shoulder series DX Shoulder series DX Exam: [...] Date/time: 01/12/18 19:22 Electronically Signed by: Dilshad Mathais MD 01/12/18 19:22 FINAL REPORT [facility] Brain wo contrast CT Brain wo [...] CT evidence of acute intracranial abnormality. SL: LE 01/10/2018 - - Read by: Constantin Mcnair MD Dictated Date/time: 01/11/18 00:01 Electronically Signed by: Constantin Mcnair MD 01/11/18 00:09 FINAL REPORT [facility] Ext Upper Venous Doppler Unilat US [...] IMPRESSION: Negative right upper extremity venous Doppler. 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 IMPRESSION: No acute findings. SL: JANUARY 01/10/2018 - - Read by: Victor M Hooks MD Dictated Date/time: 01/10/18 21:25 Electronically Signed by: Victor M Hooks MD 01/10/18 21:26 FINAL REPORT [facility] URINE AND STOOL UA Urobilinogen <=1.0 mg/dL 0.1 - 1.0 05/29/2016 [facility] URINE AND STOOL UA Bacteria Many /HPF None Seen /HPF 05/29/2016 [facility] URINE AND STOOL UA Mucus Few /LPF None Seen /LPF 05/29/2016 [facility] URINE AND STOOL UA Bili Negative *NA* (05/28/16 9:30 PM) Negative 05/29/2016 [facility] URINE AND STOOL UA Blood Large *ABN* (05/28/16 9:30 PM) Negative 05/29/2016 [facility] URINE AND STOOL UA Ketones Negative mg/dL Negative mg/dL 05/29/2016 [facility] URINE AND STOOL UA Turbidity Marked *ABN* (05/28/16 9:30 PM) Clear 05/29/2016 [facility] URINE AND STOOL UA Color Yellow *NA* (05/28/16 9:30 PM) Yellow 05/29/2016 [facility] URINE AND STOOL UA Spec Grav 1.018 <=1.030 05/29/2016 [facility] URINE AND STOOL UA Glucose Negative mg/dL Negative mg/dL 05/29/2016 [facility] URINE AND STOOL UA pH 6.0 5.0 - 8.0 05/29/2016 [facility] URINE AND STOOL UA Protein 30 mg/dL Negative mg/dL 05/29/2016 [facility] URINE AND STOOL UA WBC 10 /HPF 0 - 5 05/29/2016 [facility] URINE AND STOOL UA RBC null 0 - 2 05/29/2016 [facility] URINE AND STOOL UA Nitrite Positive *ABN* (05/28/16 9:30 PM) Negative 05/29/2016 [facility] URINE AND STOOL UA Leuk Est Large *ABN* (05/28/16 9:30 PM) Negative 05/29/2016 [facility] URINE AND STOOL UA Sq Epi Many /LPF Few /LPF 05/29/2016 [facility] ED Abdomen/Pelvis IV contrast only CT ED Abdomen/Pelvis IV contrast only CT Patient Name: JESUS ASCENCIO : 1955; Age: 61 years y/o Female MR: [id number] Study: ED Abdomen/Pelvis IV contrast only CT [...] David Parry MD 05/29/16 01:28 FINAL REPORT [facility] Chest Pulmonary Embolism CTA Chest Pulmonary [...] Omnipaque was used for the exam. Dose: KWZ=546.88 mGy-cm FINDINGS: LUNG PARENCHYMA AND PLEURA: Dependent [...] Dictated Date/time: 05/29/16 01:15 Electronically Signed by: Howrad Lezama MD 05/29/16 01:24 FINAL REPORT [facility] CARDIAC ENZYMES Troponin-I null 0.00 - 0.40 05/28/2016 [facility] CARDIAC ENZYMES Total CK 141 unit/L 12 - 191 05/28/2016 [facility] CARDIAC ENZYMES CK MB 1.8 ng/mL 0.5 - 3.6 05/28/2016 [facility] CARDIAC ENZYMES CK MB Index 1.3 0.0 - 2.5 05/28/2016 [facility] CHEM PANEL eGFR 70 mL/min/1.73m2 05/28/2016 [...] should be multiplied by the estimated BMI. [facility] CHEM PANEL AST 15 unit/L 0 - 37 05/28/2016 [facility] CHEM PANEL ALT 21 unit/L 0 - 65 05/28/2016 [facility] CHEM PANEL Albumin Lvl 3.4 g/dL 3.5 - 5.0 05/28/2016 [facility] CHEM PANEL Total Protein 7.8 g/dL 6.4 - 8.4 05/28/2016 [facility] CHEM PANEL Calcium Lvl 8.6 mg/dL 8.5 - 10.5 05/28/2016 [facility] CHEM PANEL A/G Ratio 0.8 0.7 - 1.6 05/28/2016 [facility] CHEM PANEL AGAP 17.3 meq/L 10.0 - 20.0 05/28/2016 [facility] CHEM PANEL Globulin 4.4 g/dL 2.7 - 4.2 05/28/2016 [facility] CHEM PANEL B/C Ratio 24 6 - 25 05/28/2016 [facility] CHEM PANEL Bili Total 0.3 mg/dL 0.2 - 1.3 05/28/2016 [facility] CHEM PANEL Alk Phos 90 unit/L 39 - 136 05/28/2016 [facility] CHEM PANEL Glucose Lvl 152 mg/dL 70 - 99 05/28/2016 [facility] CHEM PANEL Potassium Lvl 3.3 meq/L 3.5 - 5.1 05/28/2016 [facility] CHEM PANEL Chloride Lvl 104 meq/L 95 - 109 05/28/2016 [facility] CHEM PANEL Sodium Lvl 141 meq/L 135 - 145 05/28/2016 [facility] CHEM PANEL CO2 23 meq/L 24 - 32 05/28/2016 [facility] CHEM PANEL Creatinine Lvl 0.90 mg/dL 0.50 - 1.40 05/28/2016 [facility] CHEM PANEL BUN 22 mg/dL 7 - 22 05/28/2016 [facility] CHEM PANEL Lipase Lvl 83 unit/L 73 - 393 05/28/2016 [facility] HEMATOLOGY RDW 13.3 % 11.5 - 14.5 05/28/2016 [facility] Platelet 258 K/CMM 133 - 450 05/28/2016 [facility] MPV 8.2 fL 7.4 - 10.4 05/28/2016 [facility] MCHC 34.2 g/dL 32.0 - 36.0 05/28/2016 [facility] MCH 31.6 pg 27.0 - 31.0 05/28/2016 [facility] Hgb 13.3 g/dL 12.0 - 16.0 05/28/2016 [facility] MCV 92.4 fL 80.0 - 98.0 05/28/2016 [facility] Hct 38.9 % 36.0 - 48.0 05/28/2016 [facility] RBC 4.21 M/CMM 4.20 - 5.40 05/28/2016 [facility] WBC 9.3 K/CMM 3.7 - 10.4 05/28/2016 [facility] INR 1.05 0.85 - 1.17 05/28/2016 [facility] PT 13.9 s 12.0 - 14.7 05/28/2016 [facility] PTT 29.9 s 22.9 - 35.8 05/28/2016 [facility] Basophils 0.9 % 0.0 - 1.0 05/28/2016 [facility] Lymphocytes # 2.9 K/CMM 1.0 - 5.5 05/28/2016 [facility] Eosinophils 4.7 % 0.0 - 4.0 05/28/2016 [facility] Segs-Bands # 5.4 K/CMM 1.5 - 8.1 05/28/2016 [facility] Eosinophils # 0.4 K/CMM 0.0 - 0.5 05/28/2016 [facility] Basophils # 0.1 K/CMM 0.0 - 0.2 05/28/2016 [facility] Monocytes # 0.5 K/CMM 0.0 - 0.8 05/28/2016 [facility] HEMATOLOGY Segs 57.8 % 45.0 - 75.0 05/28/2016 [facility] HEMATOLOGY Lymphocytes 31.0 % 20.0 - 40.0 05/28/2016 [facility] HEMATOLOGY Monocytes 5.6 % 2.0 - 12.0 05/28/2016 [facility] Chest 1view DX Chest 1view DX Study: Chest 1view DX 05/28/2016 5:54 PM CDT Patient Name: JESUS ASCENCIO MR: [id number] : 1955; Age: 61 years y/o Female [...] No acute abnormality as above discussed. SL: ROGERS-PC 05/28/2016 - - Read by: Yannick Rivera MD Dictated Date/time: 05/28/16 19:37 Electronically Signed by: Yannick Rivera MD 05/28/16 19:39 FINAL REPORT [facility] CHEMISTRY Lipase Lvl 107 U/L 73 - 393 07/14/2011 Normal [facility] CHEMISTRY Total CK 39 U/L 12 - 191 07/14/2011 Normal [facility] CHEMISTRY Troponin-I null 0.00 - 0.40 07/14/2011 Normal [facility] CHEMISTRY Myoglobin 10 ng/mL 25 - 72 07/14/2011 LOW [facility] CHEMISTRY Chloride Lvl 102 meq/L 95 - 109 07/14/2011 Normal [facility] CHEMISTRY BUN 18 mg/dL 7 - 22 07/14/2011 Normal [facility] CHEMISTRY Glucose Lvl 95 mg/dL 70 - 99 07/14/2011 Normal 1Interpretive Data: Adult reference range values reflect the clinical guidelinesof the [place] [employer]. [facility] CHEMISTRY CO2 25 meq/L 24 - 32 07/14/2011 Normal [facility] CHEMISTRY Calcium Lvl 9.0 mg/dL 8.5 - 10.5 07/14/2011 Normal [facility] CHEMISTRY Creatinine Lvl 0.7 mg/dL 0.5 - 1.4 07/14/2011 Normal [facility] CHEMISTRY Sodium Lvl 139 meq/L 135 - 145 07/14/2011 Normal [facility] CHEMISTRY Potassium Lvl 4.2 meq/L 3.5 - 5.1 07/14/2011 Normal [facility] CHEMISTRY AGAP 16.2 meq/L 10.0 - 20.0 07/14/2011 Normal [facility] CHEMISTRY Etoh (%) null 07/14/2011 NA 2Interpretive Data: Negative Range: <0.003%Toxic Range: >0.25% [facility] CHEMISTRY Ethanol Lvl null 07/14/2011 NA 3Interpretive Data: Negative Range: <3 mg/dLToxic Range: >250 mg/dL [facility] HEMATOLOGY Platelet 286 K/CMM 133 - 450 07/14/2011 Normal [facility] HEMATOLOGY RDW 13.1 % 11.5 - 14.5 07/14/2011 Normal [facility] HEMATOLOGY MCHC 34.3 g/dL 32.0 - 36.0 07/14/2011 Normal [facility] HEMATOLOGY MPV 8.0 fL 7.4 - 10.4 07/14/2011 Normal [facility] HEMATOLOGY Hgb 13.6 g/dL 12.0 - 16.0 07/14/2011 Normal [facility] HEMATOLOGY MCH 31.7 pg 27.0 - 31.0 07/14/[address] [facility] HEMATOLOGY MCV 92.5 fL 81.0 - 99.0 07/14/2011 Normal [facility] HEMATOLOGY Hct 39.7 % 36.0 - 48.0 07/14/2011 Normal [facility] HEMATOLOGY RBC 4.29 M/CMM 4.20 - 5.40 07/14/2011 Normal [facility] HEMATOLOGY WBC 14.1 K/CMM 3.7 - 10.4 07/14/[address] [facility] HEMATOLOGY INR 0.93 0.85 - 1.17 07/14/2011 Normal 4Interpretive Data: RECOMMENDED RANGES FOR PROTIME INR: 2.0-3.0 for most medical and surgical thromboembolic states. 2.5-3.5 for artificial heart valves and recurrent embolism.INR SHOULD BE USED ONLY FOR PATIENTS ON STABLE ANTICOAGULANT THERAPY. [facility] HEMATOLOGY PTT 22.9 s 22.9 - 35.8 07/14/2011 Normal 5Interpretive Data: Heparin Therapeutic Range: 57 - 92 Seconds [facility] HEMATOLOGY PT 12.5 s 12.0 - 14.7 07/14/2011 Normal [facility] HEMATOLOGY Plt Morph Normal (07/14/2011 17:29:00) 07/14/2011 Normal [facility] HEMATOLOGY RBC Morph Normal (07/14/2011 17:29:00) 07/14/2011 Normal [facility] HEMATOLOGY Segs-Bands # 10.5 K/CMM 1.5 - 8.1 07/14/2011 HI [facility] HEMATOLOGY Lymphocytes # 2.9 K/CMM 1.0 - 5.5 07/14/2011 Normal [facility] HEMATOLOGY Basophils # 0.0 K/CMM 0.0 - 0.2 07/14/2011 Normal [facility] HEMATOLOGY Eosinophils # 0.2 K/CMM 0.0 - 0.5 07/14/2011 Normal [facility] HEMATOLOGY Basophils 0.0 % 0.0 - 1.0 07/14/2011 Normal [facility] HEMATOLOGY Eosinophils 1.6 % 0.0 - 4.0 07/14/2011 Normal [facility] HEMATOLOGY Monocytes 3.9 % 2.0 - 12.0 07/14/2011 Normal [facility] HEMATOLOGY Lymphocytes 20.3 % 20.0 - 40.0 07/14/2011 Normal [facility] HEMATOLOGY Monocytes # 0.5 K/CMM 0.0 - 0.8 07/14/2011 Normal [facility] HEMATOLOGY Segs 74.2 % 45.0 - 75.0 07/14/2011 Normal [facility] IMMUNOLOGY CDC-HIV 1/2 Ab Negative *NA* (07/14/2011 16:52:00) Negative 07/14/2011 NA [facility] Vital Signs Vital Sign Value Date Comments Source Temperature Oral (F) 98.3 F 07/09/2018 [facility] Heart Rate 63 07/09/2018 [facility] Respitory Rate 18 07/09/2018 [facility] Systolic (mm Hg) 125 07/09/2018 [facility] Diastolic (mm Hg) 83 07/09/2018 [facility] Respitory Rate 17 07/09/2018 [facility] Rate 58 07/09/2018 [facility] Systolic (mm Hg) 100 07/09/2018 [facility] Diastolic (mm Hg) 65 07/09/2018 [facility] Temperature Oral (F) 98.2 F 07/09/2018 [facility] Systolic (mm Hg) 92 07/09/2018 [facility] Diastolic (mm Hg) 64 07/09/2018 [facility] Temperature Oral (F) 97.9 F 07/09/2018 [facility] Respitory Rate 17 07/09/2018 [facility] Heart Rate 61 07/09/2018 [facility] BMI Calculated 28.4 07/09/2018 [facility] Weight 72.727 07/09/2018 [facility] Height 160.02 cm 07/09/2018 [facility] BMI Calculated 28.4 07/08/2018 [facility] Weight 72.727 07/08/2018 [facility] Height 160.02 cm 07/08/2018 [facility] Temperature Oral (F) 98.4 F 05/29/2016 [facility] Systolic (mm Hg) 117 05/29/2016 [facility] Diastolic (mm Hg) 61 05/29/2016 [facility] Respitory Rate 16 05/29/2016 [facility] Systolic (mm Hg) 127 05/29/2016 [facility] Diastolic (mm Hg) 65 05/29/2016 [facility] Respitory Rate 15 05/29/2016 [facility] Heart Rate 60 05/29/2016 [facility] Respitory Rate 15 05/29/2016 [facility] Systolic (mm Hg) 144 05/29/2016 [facility] Diastolic (mm Hg) 67 05/29/2016 [facility] Height 160.02 cm 05/28/2016 [facility] BMI Calculated 24.85 05/28/2016 [facility] Weight 63.636 05/28/2016 [facility] Temperature Oral (F) 98.6 F 05/28/2016 [facility] Heart Rate 77 05/28/2016 [facility] Height 160.02 cm 07/14/2011 [facility] Weight 72.727 07/14/2011 [facility] Encounters Location Location Details Encounter Type Encounter Number Reason For Visit Attending Provider ADM Date DC Date Status Source [facility] Emergency [id number] CARA VICKERS 07/14/2011 07/15/2011 Active [facility] Emergency [id number] Eugene Alvarez 05/28/2016 05/29/2016 [facility] Observation [id number] Donald Barrett Jr 07/08/2018 07/10/2018 SAMANTHA Anna Procedures Procedure Code Date Perfomer Comments Source section [id number] SAMANTHA Anna
--- OUTSIDE RECORDS SUMMARY | 2018-08-09 11:14 | XMS REPORT | Summary of Care ---
Author Author [facility] Organization [facility] Address Unknown Phone Unavailable Encounter DAVIS Esposito(ROBB) [id number] Date(s): 07/08/18 - 07/09/18 [facility] [address] [place] [address]- [phone] Discharge Disposition: Home or Self Care Attending Physician: Donald Jeff MD Admitting Physician: Donald Jeff MD Vital Signs 1 2 3 Most recent to oldest [Reference Range]: 160.02 cm (07/08/18 11:12 PM) 160.02 cm (07/08/18 1:44 PM) Height 98.3 DegF (07/09/18 3:53 PM) 98.2 DegF (07/09/18 11:17 AM) 97.9 DegF (07/09/18 7:09 AM) Temperature Oral [96.4-99.1 DegF] 125/83 mmHg (07/09/18 3:53 PM) 100/65 mmHg (07/09/18 11:17 AM) 92/64 mmHg (07/09/18 7:09 AM) Blood Pressure [90-140/60-90 mmHg] 18 BRMIN (07/09/18 3:53 PM) 17 BRMIN (07/09/18 11:17 AM) 17 BRMIN (07/09/18 7:09 AM) Respiratory Rate [14-20 BRMIN] 63 bpm (07/09/18 3:53 PM) 58 bpm *LOW* (07/09/18 11:17 AM) 61 bpm (07/09/18 7:09 AM) Peripheral Pulse Rate [60-100 bpm] 72.727 kg (07/08/18 11:12 PM) 72.727 kg (07/08/18 1:44 PM) Weight 28.4 m2 (07/08/18 11:12 PM) 28.4 m2 (07/08/18 1:44 PM) Body Mass Index Problem List Condition Effective Dates Status Health Status Informant Anxiety(Confirmed) Active Back pain(Confirmed) Active Chest Active pain(Confirmed) CAD (coronary artery Active disease)(Confirmed) Deep vein Active thrombosis(Confirmed ) Deep vein thrombosis Active (DVT)(Confirmed) Depression(Confirmed Active ) Diabetes(Confirmed) Active Dysmenorrhea(Confirm Active ed) Epileptic Active seizure(Confirmed) Fracture of Active knee-cap(Confirmed) Hay fever(Confirmed) Active Hypertension(Confirm Active ed) HTN Active (hypertension)(Confi rmed) Incontinence(Confirm Active ed) Colon Active cancer(Confirmed) Migraine(Confirmed) Active Nausea and Active Acute ; vomiting(Confirmed) Neck pain(Confirmed) Active Osteoarthritis(Confi Active rmed) Panic Active disorder(Confirmed) Pulmonary Active embolism(Confirmed) Pulmonary Active embolism(Confirmed) Seizure(Confirmed) Active Shoulder Active pain(Confirmed) Sleep Active apnea(Confirmed) Stroke(Confirmed) Active Suicide Active attempt(Confirmed) UTI - Urinary tract Active infection(Confirmed) Allergies, Adverse Reactions, Alerts Substance Reaction Severity Status prochlorperazine Active Medications atorvastatin 10 mg oral tablet 20 mg=2 tab, PO, Bedtime, 0 Refill(s) Start Date: 07/09/18 Status: Ordered citalopram 20 mg, 2 tab, Route: PO, Drug form: TAB, Daily, Dosing Weight 72.727, kg, Start date: 07/09/18 9:00:00 CDT, Duration: 30 day, Stop date: 08/07/18 9:00:00 CDT Start Date: 07/09/18 Stop Date: 07/09/18 Status: Discontinued Dilantin 100 mg, 1 cap, Route: PO, Drug form: ERCAP, QAM, Dosing Weight 72.727, kg, Start date: 07/09/18 9:00:00 CDT, Duration: 30 day, Stop date: 08/07/18 9:00:00 CDT Notes: (Same as: Dilantin) Do not open, crush, or chew. Start Date: 07/09/18 Stop Date: 07/09/18 Status: Discontinued Dilantin 300 mg, 3 cap, Route: PO, Drug form: ERCAP, Bedtime, Dosing Weight 72.727, kg, S tart date: 07/09/18 21:00:00 CDT, Duration: 30 day, Stop date: 08/07/18 21:00:00 CDT Notes: (Same as: Dilantin) Do not open, crush, or chew. Start Date: 07/09/18 Stop Date: 07/09/18 Status: Canceled ketOROLAC 15 mg, Route: IVP, Drug form: INJ, ONCE, Dosing Weight 72.727, kg, Priority: STA T, Start date: 07/08/18 21:35:00 CDT, Stop date: 07/08/18 21:35:00 CDT Start Date: 07/08/18 Stop Date: 07/08/18 Status: Completed ketOROLAC 15 mg, 1 mL, Route: IVP, Drug form: INJ, Q6H, Dosing Weight 72.727, kg, PRN Pain Score 4-6, Start date: 07/09/18 0:03:00 CDT, Duration: 4 day, Stop date: 0:02:00 CDT Notes: (Same as:Toradol) IV bolus must be given >15 seconds. Give IM administration slowly and deeply into the muscle. Not for use > 4 days. Start Date: 07/09/18 Stop Date: 07/09/18 Status: Discontinued Lipitor 20 mg, 2 tab, Route: PO, Drug form: TAB, Bedtime, Dosing Weight 72.727, kg, Star t date: 07/09/18 21:00:00 CDT, Duration: 30 day, Stop date: 08/07/18 21:00:00 CD T Notes: (Same As: Lipitor) Start Date: 07/09/18 Stop Date: 07/09/18 Status: Canceled Lyrica 75 mg, 1 cap, Route: PO, Drug form: CAP, Daily, Dosing Weight 72.727, kg, Start date: 07/09/18 9:00:00 CDT, Duration: 30 day, Stop date: 08/07/18 9:00:00 CDT Notes: (Same as: Lyrica) Start Date: 07/09/18 Stop Date: 07/09/18 Status: Discontinued morphine Sulfate 4 mg, 1 mL, Route: IVP, Drug form: SOLN, Q4H, Dosing Weight 72.727, kg, PRN Pain Score 7-10, Start date: 07/09/18 2:11:00 CDT, Duration: 30 day, Stop date: 07/21 2:10:00 CDT Notes: (Same as:MORPhine Sulfate) Start Date: 07/09/18 Stop Date: 07/09/18 Status: Discontinued nitroglycerin SL Tab 0.4 mg, 1 tab, Route: SL, Drug form: TAB, Q5Min, Dosing Weight 72.727, kg, PRN C hest Pain, Start date: 07/09/18 0:02:00 CDT, Duration: 3 doses or times, Stop da te: Limited # of times Notes: (Same as:Nitroquick, Nitrostat)"Do Not Crush" Sublingual tablet Start Date: 07/09/18 Stop Date: 07/09/18 Status: Discontinued omeprazole 20 mg, Route: PO, Daily, Dosing Weight 72.727, kg, Start date: 07/09/18 9:00:00 CDT, Duration: 30 day, Stop date: 08/07/18 9:00:00 CDT Start Date: 07/09/18 Stop Date: 07/09/18 Status: Deleted PHENobarbital 90 mg, 3 tab, Route: PO, Drug form: TAB, Bedtime, Dosing Weight 72.727, kg, Star t date: 07/09/18 21:00:00 CDT, Duration: 30 day, Stop date: 08/07/18 21:00:00 CD T Notes: (Same as: Lexie Simon, [place]) Start Date: 07/09/18 Stop Date: 07/09/18 Status: Canceled PHENobarbital 30 mg, 1 tab, Route: PO, Drug form: TAB, Breakfast, Dosing Weight 72.727, kg, St art date: 07/09/18 8:00:00 CDT, Duration: 30 day, Stop date: 08/07/18 8:00:00 CD T Notes: (Same as: Lexie Simon, [place]) Start Date: 07/09/18 Stop Date: 07/09/18 Status: Discontinued pneumococcal 23-valent vaccine 0.5 mL, Route: IM, Drug Form: INJ, ONCALL, Start date: 07/08/18 23:16:45 CDT, St op date: 08/07/18 23:11:45 CDT Notes: (Same as: Pneumovax 23) Refrigerate Start Date: 07/08/18 Stop Date: 07/09/18 Status: Discontinued Protonix 40 mg, 1 tab, Route: PO, Drug form: ECTAB, Daily, Start date: 07/09/18 9:00:00 C DT, Duration: 30 day, Stop date: 08/07/18 9:00:00 CDT Notes: Tablet should not be chewed or crushed.(Same as: Protonix) Start Date: 07/09/18 Stop Date: 07/09/18 Status: Discontinued Saline Flush 0.9% 10 ml, Route: IVP, Drug Form: INJ, Dosing Weight 72.727, kg, Q12H, Start date: 0 07/09/18 9:00:00 CDT, Duration: 30 day, Stop date: 08/07/18 21:00:00 CDT Notes: (Same as: BD Posiflush) Start Date: 07/09/18 Stop Date: 07/09/18 Status: Discontinued Saline Flush 0.9% 10 ml, Route: IVP, Drug Form: INJ, Dosing Weight 72.727, kg, PRN, PRN Line Flush , Start date: 07/09/18 0:02:00 CDT, Duration: 30 day, Stop date: 08/08/18 0:01:0 0 CDT Notes: (Same as: BD Posiflush) Start Date: 07/09/18 Stop Date: 07/09/18 Status: Discontinued Tylenol with Codeine #3 oral tablet 1 tab, PO, Q6H, PRN Pain, X 7 day, # 28 tab, 0 Refill(s), given to patient Start Date: 07/09/18 Stop Date: 07/09/18 Status: Discontinued Tylenol with Codeine #3 oral tablet 1 tab, PO, Q6H, PRN Pain, X 7 day, # 28 tab, 0 Refill(s) Start Date: 07/09/18 Stop Date: 07/16/18 Status: Ordered warfarin 5 mg, 1 tab, Route: PO, Drug form: TAB, Daily, Dosing Weight 72.727, kg, Start d ate: 07/09/18 17:00:00 CDT, Duration: 30 day, Stop date: 08/07/18 17:00:00 CDT Notes: Nurse to ensure documentation of patient education per anticoagulation po licy.Avoid large intake of vitamin-K containing foods diet.WASTE: F/P - P Waste Black; E - P Waste Black(Same As: Coumadin) Start Date: 07/09/18 Stop Date: 07/09/18 Status: Discontinued Results 1 2 3 Most recent to oldest [Reference Range]: 3.7 K/CMM (07/09/18 4:02 AM) 6.2 K/CMM (07/08/18 2:57 PM) Neutrophils # [1.5-8.1 K/CMM] 2.5 K/CMM (07/09/18 4:02 AM) 2.8 K/CMM (07/08/18 2:57 PM) Lymphocytes # [1.0-5.5 K/CMM] 0.5 K/CMM (07/09/18 4:02 AM) 0.5 K/CMM (07/08/18 2:57 PM) Monocytes # [0.0-0.8 K/CMM] 0.4 K/CMM (07/09/18 4:02 AM) 0.4 K/CMM (07/08/18 2:57 PM) Eosinophils # [0.0-0.5 K/CMM] 0.1 K/CMM (07/09/18 4:02 AM) 0.1 K/CMM (07/08/18 2:57 PM) Basophils # [0.0-0.2 K/CMM] 9 pg/mL (07/08/18 2:57 PM) BNP [<=100 pg/mL] 0.3 mg/dL (07/09/18 4:02 AM) Bili Indirect [0.0-1.0 mg/dL] 88 mL/min/1.73m2 1 *NA* (07/09/18 4:02 AM) 66 mL/min/1.73m2 2 *NA* (07/08/18 2:57 PM) eGFR 0.7 (5/21/19 4:02 AM) 0.7 (07/08/18 2:57 PM) A/G Ratio [0.7-1.6] 3.0 g/dL *LOW* (07/09/18 4:02 AM) 3.4 g/dL *LOW* (07/08/18 2:57 PM) Albumin Lvl [3.5-5.0 g/dL] 83 unit/L (07/09/18 4:02 AM) 91 unit/L (07/08/18 2:57 PM) Alk Phos [39-136 unit/L] 24 unit/L (07/09/18 4:02 AM) 26 unit/L (07/08/18 2:57 PM) ALT [0-65 unit/L] 12.5 mEq/L (07/09/18 4:02 AM) 9.4 mEq/L *LOW* (07/08/18 2:57 PM) AGAP [10.0-20.0 mEq/L] 21 unit/L (07/09/18 4:02 AM) 19 unit/L (07/08/18 2:57 PM) AST [0-37 unit/L] 15 (07/08/18 2:57 PM) B/C Ratio [6-25] 1.0 % (07/09/18 4:02 AM) 0.7 % (07/08/18 2:57 PM) Basophils [0.0-1.0 %] 17 mg/dL (07/09/18 4:02 AM) 14 mg/dL (07/08/18 2:57 PM) BUN [7-22 mg/dL] 8.4 mg/dL *LOW* (07/09/18 4:02 AM) 8.7 mg/dL (07/08/18 2:57 PM) Calcium Lvl [8.5-10.5 mg/dL] 3.60 *LOW* (07/09/18 4:02 AM) CHD Risk [3.90-5.80] 180 mg/dL (07/09/18 4:02 AM) Chol [<=199 mg/dL] 96 unit/L (07/08/18 2:57 PM) Total CK [12-191 unit/L] <1.0 ng/mL (07/08/18 2:57 PM) CK MB [0.5-3.6 ng/mL] <1.0 (07/08/18 2:57 PM) CK MB Index [0.0-2.5] 105 mEq/L (07/09/18 4:02 AM) 107 mEq/L (07/08/18 2:57 PM) Chloride Lvl [95-109 mEq/L] 24 mEq/L (07/09/18 4:02 AM) 26 mEq/L (07/08/18 2:57 PM) CO2 [24-32 mEq/L] 0.74 mg/dL (07/09/18 4:02 AM) 0.93 mg/dL (07/08/18 2:57 PM) Creatinine Lvl [0.50-1.40 mg/dL] 0.1 mg/dL (07/09/18 4:02 AM) Bili Direct [0.0-0.3 mg/dL] 6.1 % *HI* (07/09/18 4:02 AM) 4.2 % *HI* (07/08/18 2:57 PM) Eosinophils [0.0-4.0 %] 4.3 g/dL *HI* (07/09/18 4:02 AM) 4.9 g/dL *HI* (07/08/18 2:57 PM) Globulin [2.7-4.2 g/dL] 121 mg/dL *HI* (07/09/18 4:02 AM) 144 mg/dL *HI* (07/08/18 2:57 PM) Glucose Lvl [70-99 mg/dL] 37.1 % (07/09/18 4:02 AM) 39.1 % (07/08/18 2:57 PM) Hct [36.0-48.0 %] 50 mg/dL *LOW* (07/09/18 4:02 AM) HDL [>=61 mg/dL] 12.6 g/dL (07/09/18 4:02 AM) 13.4 g/dL (07/08/18 2:57 PM) Hgb [12.0-16.0 g/dL] 1.39 *HI* (07/08/18 2:57 PM) INR [0.85-1.17] 3.5 mEq/L (07/09/18 4:02 AM) 3.4 mEq/L *LOW* (07/08/18 2:57 PM) Potassium Lvl [3.5-5.1 mEq/L] 102 mg/dL *HI* (07/09/18 4:02 AM) LDL (Calculated) [<=99 mg/dL] 35.3 % (07/09/18 4:02 AM) 28.2 % (07/08/18 2:57 PM) Lymphocytes [20.0-40.0 %] 32.3 pg *HI* (07/09/18 4:02 AM) 32.2 pg *HI* (07/08/18 2:57 PM) MCH [27.0-31.0 pg] 33.9 g/dL (07/09/18 4:02 AM) 34.2 g/dL (07/08/18 2:57 PM) MCHC [32.0-36.0 g/dL] 95.2 fL (07/09/18 4:02 AM) 94.2 fL (07/08/18 2:57 PM) MCV [80.0-98.0 fL] 2.5 mg/dL *HI* (07/09/18 4:02 AM) Magnesium Lvl [1.8-2.4 mg/dL] 6.8 % (07/09/18 4:02 AM) 5.3 % (07/08/18 2:57 PM) Monocytes [2.0-12.0 %] 8.2 fL (07/09/18 4:02 AM) 8.3 fL (07/08/18 2:57 PM) MPV [7.4-10.4 fL] 138 mEq/L (07/09/18 4:02 AM) 139 mEq/L (07/08/18 2:57 PM) Sodium Lvl [135-145 mEq/L] 3.5 mg/dL (07/09/18 4:02 AM) Phosphorus [2.5-4.5 mg/dL] 241 K/CMM (07/09/18 4:02 AM) 271 K/CMM (07/08/18 2:57 PM) Platelet [133-450 K/CMM] 50.8 % (07/09/18 4:02 AM) 61.6 % (07/08/18 2:57 PM) Segs [45.0-75.0 %] 7.3 g/dL (07/09/18 4:02 AM) 8.3 g/dL (07/08/18 2:57 PM) Total Protein [6.4-8.4 g/dL] 16.8 seconds *HI* (07/08/18 2:57 PM) PT [12.0-14.7 seconds] 30.1 seconds (07/08/18 2:57 PM) PTT [22.9-35.8 seconds] 3.90 M/CMM *LOW* (07/09/18 4:02 AM) 4.15 M/CMM *LOW* (07/08/18 2:57 PM) RBC [4.20-5.40 M/CMM] 13.8 % (07/09/18 4:02 AM) 13.8 % (07/08/18 2:57 PM) RDW [11.5-14.5 %] 0.4 mg/dL (07/09/18 4:02 AM) 0.2 mg/dL (07/08/18 2:57 PM) Bili Total [0.2-1.3 mg/dL] 141 mg/dL (07/09/18 4:02 AM) Trig [<=149 mg/dL] <0.02 ng/mL (07/09/18 4:02 AM) <0.02 ng/mL (07/09/18 12:16 AM) <0.02 ng/mL (07/08/18 2:57 PM) Troponin-I [0.00-0.40 ng/mL] Moderate /HPF *ABN* (07/09/18 4:13 PM) UA Bacteria [None Seen /HPF] Negative *NA* (07/09/18 5:29 PM) Negative *NA* (07/09/18 4:13 PM) UA Bili [Negative] Moderate *ABN* (07/09/18 5:29 PM) Large *ABN* (07/09/18 4:13 PM) UA Blood [Negative] Yellow *NA* (07/09/18 5:29 PM) UA Color [Yellow] Red *NA* (07/09/18 4:13 PM) UA Color Negative mg/dL *NA* (07/09/18 5:29 PM) 50 mg/dL *ABN* (07/09/18 4:13 PM) UA Glucose [Negative mg/dL] Negative mg/dL *NA* (07/09/18 5:29 PM) Negative mg/dL *NA* (07/09/18 4:13 PM) UA Ketones [Negative mg/dL] Negative (07/09/18 5:29 PM) Negative (07/09/18 4:13 PM) UA Leuk Est [Negative] Moderate /LPF *ABN* (07/09/18 4:13 PM) UA Mucus [None Seen /LPF] Negative (07/09/18 5:29 PM) Negative (07/09/18 4:13 PM) UA Nitrite [Negative] 6.0 (07/09/18 5:29 PM) 6.0 (07/09/18 4:13 PM) UA pH [5.0-8.0] Negative mg/dL (07/09/18 5:29 PM) 100 mg/dL *ABN* (07/09/18 4:13 PM) UA Protein [Negative mg/dL] 2 /HPF (07/09/18 5:29 PM) >182 /HPF *HI* (07/09/18 4:13 PM) UA RBC [0-2 /HPF] 1.026 (07/09/18 5:29 PM) 1.043 *HI* (07/09/18 4:13 PM) UA Spec Grav [<=1.030] Occasional /LPF *NA* (07/09/18 5:29 PM) Many /LPF *ABN* (07/09/18 4:13 PM) UA Sq Epi [Few /LPF] Clear (07/09/18 5:29 PM) Marked *ABN* (07/09/18 4:13 PM) UA Turbidity [Clear] <=1.0 mg/dL *NA* (07/09/18 5:29 PM) <=1.0 mg/dL *NA* (07/09/18 4:13 PM) UA Urobilinogen [0.1-1.0 mg/dL] 1 /HPF (07/09/18 5:29 PM) 97 /HPF *HI* (07/09/18 4:13 PM) UA WBC [0-5 /HPF] Many /HPF *ABN* (07/09/18 4:13 PM) UA [place] Yeast [None Seen /HPF] 7.2 K/CMM (07/09/18 4:02 AM) 10.0 K/CMM (07/08/18 2:57 PM) WBC [3.7-10.4 K/CMM] 28 *NA* (07/09/18 4:02 AM) VLDL 1Result Comment: The eGFR is calculated using [...] be mul tiplied by the estimated BMI. 2Result Comment: The eGFR is calculated using the [...] be mul tiplied by the estimated BMI. Immunizations Given and Recorded Vaccine Date Status Refusal Reason influenza virus vaccine, inactivated 11/29/11 Given Procedures Procedure Date Related Diagnosis Body Site Status section Completed Social History Social History Type Response Smoking Status Never smoker; Exposure to Tobacco Smoke None; Cigarette Smoking Last 365 Days No; Reg Smoking Cessation Counseling No entered on: 07/08/18 Assessment and Plan Extracted from: Title: Clinical Document Author: Meghann Callaway MD Date: 07/09/18 [facility] Initial Cardiology Consultation Note Reason for Consult: Chest pain Chief Complaint: Right arm pain HPI: This is a 63-year-old woman with a past medical history of coronary artery disease status post stent placement about 9 years ago, history of PE on warfarin with a subtherapeutic INR and noncompliant with follow-up, CVA with right-sided deficits, hypertension, diabetes mellitus, obstructive sleep apnea who presents with right arm pain that began 3 days ago. She notices that 3 days ago she developed tingling in her right hand fingers followed by pain in her arm and right side of the chest radiating to her back. The pain is worsened by movement of the arm. Yesterday she noticed swelling in her right breast and right upper extremity that has worsened this morning. Cardiac cottrell she sees a traffic signal mechanic but cannot remember his name. She has not had a stress test as met in many years. She last had her INR checked 2 months ago. Overnight her EKG and cardiac enzymes have ruled out ACS. Still complains of significant right sided chest pain and arm pain with inability to move the arm and associated swelling in the right breast and arm. There has been no evidence of DVT by Doppler ultrasound of the right upper extremity. REVIEW OF SYSTEMS: CONSTITUTIONAL: No fever. No chills. No dizziness. No weakness. EYES: No pain, erythema, or discharge. No blurring of vision. EAR, NOSE AND THROAT: No sore throat, URI symptoms. No epistaxis. No tinnitus. CARDIOVASCULAR: + chest pain. No palpitations. No lower extremity edema. RESPIRATORY: No shortness of breath, cough, pain with respiration, or pleuritic chest pain. No hemoptysis. No dyspnea. No paroxysmal nocturnal dyspnea. GASTROINTESTINAL: No abdominal pain, nausea, diarrhea, vomiting. GENITOURINARY: No frequency, urgency, nocturia. No hematuria or dysuria. MUSCULOSKELETAL: No arthralgias or myalgias. INTEGUMENTARY: + swelling. No bruising. No contusions. No abrasions. No lymphangitis. NEUROLOGIC: No headache. No neck pain. No numbness or tingling of the extremities. No weakness. PSYCHIATRIC: No confusion. METABOLIC: No fatigue. No weakness. No history of thyroid, diabetes or adrenal problems. HEMATOLOGICAL: No bleeding. No petechiae. No bruising. ALLERGY: No asthma. No urticaria. Past Medical History Coronary artery disease status post stent placement Deep venous thrombosis Pulmonary embolism CVA Seizure disorder Osteoarthritis Allergies: Allergies (1) ActiveReaction prochlorperazineNone documented Medications: Medications (15) Active Scheduled Meds (9): 07/09/18 PHENobarbital 90 mg PO Bedtime 07/09/18 PHENobarbital 30 mg PO Breakfast 07/09/18 citalopram 20 mg PO Daily 07/09/18 pantoprazole (Protonix) 40 mg PO Daily 07/09/18 phenytoin (Dilantin) 300 mg PO Bedtime 07/09/18 phenytoin (Dilantin) 100 mg PO QAM 07/09/18 pregabalin (Lyrica) 75 mg PO Daily 07/09/18 sodium chloride (Saline Flush 0.9%) 10 ml IVP Q12H 07/09/18 warfarin 5 mg PO Daily Unscheduled Meds (1): 07/08/18 pneumococcal 23-valent vaccine 0.5 mL IM ONCALL PRN Meds (4): 07/09/18 ketOROLAC 15 mg IVP Q6H 07/09/18 morphine Sulfate 4 mg IVP Q4H 07/09/18 nitroglycerin (nitroglycerin SL Tab) 0.4 mg SL Q5Min 07/09/18 sodium chloride (Saline Flush 0.9%) 10 ml IVP PRN One Time Meds (1): 07/08/18 (Completed) ketOROLAC 15 mg IVP ONCE Continuous Infusions: None Home medication: Citalopram Dilantin Lyrica Phenobarbital Warfarin Omeprazole Family history No qualifying data available Social history Tobacco Details: Use: Never smoker. Tobacco smoke exposure: None. Did the Patient Smoke Cigarettes Anytime During the Last 365 Days? No. Cessation Counseling Provided? No. Vital Signs (last 24 hrs) Last Charted Temp Oral97.9 DegF (JULY 09 07:09) Heart Rate [id number] bpm (JULY 09 07:09) Resp Rate 17 BRMIN (MAY 21 07:09) SBP92 mmHg (JULY 09 07:09) DBP64 mmHg (JULY 09 07:09) MnR877 % (JULY 09 07:09) Pdvfyk06.727 kg (JULY 08 23:12) Ijtqpu224.02 cm (JULY 08 23:12) BMI28.4 (JULY 08 23:12) I/O Intake OutputBalance 07/08/20187a-3p 0.00 0.00 0.00 3p-11p 0.00 0.00 0.00 11p-7a 3.00 0.00 3.00 Totals 3.00 0.00 3.00 07/07/20187a-3p 0.00 0.00 0.00 3p-11p 0.00 0.00 0.00 11p-7a 0.00 0.00 0.00 Totals 0.00 0.00 0.00 Physical exam: Gen: Alert, no apparent distress Neck: No carotid bruits, No JVD Lungs: CTAB, chest pain reproducible on palpation and worse with movement of right arm Heart: Regular, S1-S2 Abd: Soft, non-tender, positive bowel sounds Ext: Right upper extremity difficult to move with mild edema, 2+ pulses distally Neuro: No focal deficits Skin: warm, moist Labs (Last four charted values) WBC 7.2(JULY 09)10.0(JULY 08) Hgb 12.6(JULY 09)13.4(JULY 08) Hct 37.1(JULY 09)39.1(JULY 08) Plt 241(JULY 09)271(JULY 08) Na 138(JULY 09)139(JULY 08) K 3.5(JULY 09)L 3.4(JULY 08) CO2 24(JULY 09)26(JULY 08) Cl 105(JULY 09)107(JULY 08) Cr 0.74(JULY 09)0.93(JULY 08) BUN 17(JULY 09)14(JULY 08) Glucose Random H 121(JULY 09)H 144(JULY 08) Mg H 2.5(JULY 09) Phos 3.5(JULY 09) Ca L 8.4(JULY 09)8.7(JULY 08) PT H 16.8(JULY 08) INR H 1.39(JULY 08) PTT 30.1(JULY 08) Troponin <0.02(JULY 09)<0.02(JULY 09)<0.02(JULY 08) CK MB <1.0(JULY 08) Total CK 96(JULY 08) Electrocardiogram: Normal sinus rhythm Assessment and plan: Chest pain: This appears to be atypical and related to right arm pathology. She has ruled out for ACS with negative cardiac enzymes and EKG overnight. Given her underlying history of coronary artery disease and lack of stress testing in the recent past she will benefit from stress testing as outpatient. I will go ahead and obtain an echocardiogram since we do not have one on file. Right upper extremity swelling: Per primary team CAD status post stent in the past: Patient does not appear to be on any cardioprotective medications. She should at least be on a statin and a beta- gaurang as tolerated. Given her blood pressure currently I will hold off on initiation of a beta-gaurang but I will go ahead and begin statin at this point DVT with history of PE: Non-therapeutic INR with the noncompliance with follow- ups. Compliance encouraged Thank you for the consult. Call with questions. Extracted from: Title: [facility] History and Author: Lauryn Cox MD Date: 07/08/18 Physical Arm pain, right(M79.601) Chest pain in adult(R07.9) SOB (shortness of breath)(R06.02) ACS rule out. Trend troponin. Right upper extremity venous Doppler negative for acute DVT. Will obtainCT soft tissueneckfor further evaluation of possible massor lymph nodecausing compressiongiven patient history. Pain meds as needed. Reconcile home medications. Home warfarin Patient is stable at this time. Anticipate hospitalization for at least one midnight. Discharge home pending clinical improvement. Time spent on H&P greater than 40 minutes. Lauryn Cox MD Band Sawmill Operator
--- OUTSIDE RECORDS SUMMARY | 2018-08-09 11:15 | XMS REPORT | Clinical Summary ---
Author Author [facility] Organization [facility] Address Unknown Phone Unavailable Care Team Providers Care Supply Controller Name Role Phone Rayray Anderson PCP Allergies [...] Overview: Added automatically from request for surgery [id number] Hematemesis, presence of nausea not specified 05/29/2018 Overview: Added automatically from request for surgery [id number] Coronary artery disease Diabetes mellitus Hyperlipidemia Hypertension [...] unspecified vessel or lesion type, unspecified whether tunica-biloxi or transplanted heart; Hyperlipidemia, unspecified hyperlipidemia type; Hematemesis, presence of nausea not specified; Esophagitis 05/29/2018 [facility] General Internal Medicine - Encounter [...] ms QTC Calculatio n(Bazett) 428 ms P Hemlock 22 degrees R Hemlock -6 degrees T Hemlock 42 degrees Sinus bradycardi a Nonspecifi c [...] is included. POC-Glucose Meter 97Comment: TESTED AT [facility] 70 - 110 mg/dL [facility] [address] [facility] [id number] Specimen Blood Performing Organization Address City/State/Zipcode Phone Number [facility] [address] [place] [address] [facility] * REPORT OF PROCEDURE - ENDOSCOPY URL (06/03/2018 3:48 PM CDT) Narrative Performed At * Tissue Exam (06/03/2018 3:33 PM CDT) Case Report Surgical Pathology [facility] Report Case: [id number] Authorizing Provider:Amrik Dale MDCollectmoraima d: 06/03/2018 1533 Ordering Location: [facility] ENDOSCOPY SERVICESReceived: 06/04/2018 0903 Pathologist: Nanci Nassar MD Specimens: A) - Antrum, bx B) - Stomach,Body, bx C) - Esophagus, irregular z line bx DIAGNOSIS A. STOMACH, ANTRUM, BIOPSY [facility] - NON-SPECIFIC REACTIVE CHANGES - NEGATIVE [...] OR DYSPLASIA Signing Pathologist Direct Phone Line: [phone] CPT Code(s) 66697 X 3, [address] [facility] CLINICAL HISTORY Hematemesis. Procedure upper [facility] endoscopy SPECIMEN SOURCE A. Antrum biopsy. B. Stomach [facility] body biopsy. C. Irregular Z-line biopsy GROSS DESCRIPTION The instrument, containers, [facility] paperwork, and cassettes all read [id number]. Received in formalin labeled with the patient's [...] JF/ew SPECIAL STUDIES The interpretation of this [facility] case included the use of immunohistochemistry or special stains. Immunohistochemistry technical testing was performed at [facility], Pathology Laboratory where it was developed and [...] Esophageal structure (body structure) Performing Organization Address City/[facility]/Zipcode Phone Number [facility] [address] [place] [address] * ECG 12 lead (06/03/2018 1:38 PM CDT) Specimen Narrative Performed At Ventricular Rate 58 BPM GE MUSE Atrial Rate 58 BPM P-R Interval 168 ms QRS Duration 92 ms Q-T Interval 436 ms QTC Calculation(Bazett) 428 ms P Hemlock 22 degrees R Hemlock -6 degrees T Hemlock 42 degrees Sinus bradycardia Nonspecific T wave abnormality Abnormal ECG When compared with ECG of 03-FEB-2004 22:35, PREVIOUS ECG IS PRESENT Procedure Note Interface, External Ris In - 06/04/2018 6:22 AM CDT Ventricular Rate 58 BPM Atrial Rate 58 BPM P-R Interval 168 ms QRS Duration 92 ms Q-T Interval 436 ms QTC Calculation(Bazett) 428 ms P Hemlock 22 degrees R Hemlock -6 degrees T Hemlock 42 degrees Sinus bradycardia Nonspecific T wave abnormality Abnormal ECG When compared with ECG of 03-FEB-2004 22:35, PREVIOUS ECG IS PRESENT Performing Organization Address City/[facility] Phone Number [employer] MUSE * CBC with platelet count + automated diff (06/03/2018 3:25 AM CDT) Only the most recent of 5 results within the time period is included. WBC 6.4 4.0 - 10.0 K/L [facility] RBC 3.73 (L) 4.00 - 5.00 M/L [facility] Hemoglobin 11.9 (L) 12.0 - 15.5 GM/DL [facility] Hematocrit 35.6 (L) 36.0 - 46.0 % [facility] MCV 95.4 82.0 - 99.0 fL [facility] MCH 31.9 27.0 - 33.[address] [facility] MCHC 33.4 32.0 - 36.0 GM/DL [facility] RDW 13.2 12.0 - 15.0 % [facility] Platelets 229 150 - 430 K/CU MM [facility] MPV 10.0Comment: MPV-Approximately 6.0 - 11.[address] [facility] 20% positive bias due to method change. nRBC 0 0 - 0 /100 WBC [facility] % Neutros 51 % [facility] % Lymphs 34 % [facility] % Monos 8 % [facility] % Eos 7 % [facility] % Baso 1 % [facility] # Neutros 3.29 1.80 - 8.00 K/L [facility] # Lymphs 2.15 1.48 - 4.50 K/L [facility] # Monos 0.52 0.00 - 1.30 K/L [facility] # Eos 0.42 0.00 - 0.50 K/L [facility] # Baso 0.03 0.00 - 0.20 K/L [facility] Immature 0 0 - 0 % [facility] Granulocytes-Relative Specimen Blood Performing Organization Address [facility]/Zipcode Phone Number [facility] [address] [place] [address] * Prothrombin time/INR (06/03/2018 3:25 AM CDT) Only the most recent of 4 results within the time period is included. Protime 18.3 (H) 11.8 - 14.[address] [facility] INR 1.5 1.2 - 1.5 [facility] Specimen Blood Narrative Performed At RECOMMENDED COUMADIN/WARFARIN INR THERAPY RANGES [facility] STANDARD DOSE: 2.0 - 3.0 Includes: PROPHYLAXIS for venous thrombosis, systemic embolization; TREATMENT for venous thrombosis and/or pulmonary embolus. HIGH RISK: Target INR is 2.5-3.5 for patients with mechanical heart valves. Performing Organization Address City/[facility] Phone Number [facility] [address] [place] [address] * Basic Metabolic Panel (06/02/2018 5:27 AM CDT) Only the most recent of 4 results within the time period is included. Sodium 138 135 - 148 meq/L [facility] Potassium 3.8 3.5 - 5.5 meq/L [facility] Chloride 105 98 - 106 meq/L [facility] CO2 24 20 - 31 meq/L [facility] BUN 5 (L) 10 - 26 mg/dL [facility] Creatinine 0.68 0.50 - 1.20 mg/dL [facility] Glucose 93 70 - 110 mg/dL [facility] Calcium 8.5 8.5 - 10.5 mg/dL [facility] EGFR Comment: INSUFFICIENT CLINICAL mL/min/1.73 sq m [facility] DATA TO CALCULATE ESTIMATED GFR. Specimen Blood Performing Organization Address [facility] Phone Number [facility] [address] [place] [address] * PT/aPTT (05/30/2018 12:12 AM CDT) Protime 37.8 (H) 11.8 - 14.4 seconds [facility] INR 4.0 (H) 1.2 - 1.5 [facility] PTT 56.5 (H) 23.2 - 36.1 seconds [facility] Specimen Blood Narrative Performed At RECOMMENDED COUMADIN/WARFARIN INR THERAPY RANGES [facility] STANDARD DOSE: 2.0 - 3.0 Includes: PROPHYLAXIS for venous thrombosis, systemic embolization; TREATMENT for venous thrombosis and/or pulmonary embolus. HIGH RISK: Target INR is 2.5-3.5 for patients with mechanical heart valves. Performing Organization Address [facility] Number [address] [address] * Lactic acid, venous (05/30/2018 12:12 AM CDT) Lactate, Venous 0.8Comment: Specimen slightly 0.5 - 2.2 mmol/L [facility] hemolyzed Specimen Blood Performing Organization Address [facility] Number [place] [id number] [place] [address] * Lipase (05/30/2018 12:12 AM CDT) Lipase 22 8 - 78 U/L [facility] Specimen Blood Performing Organization Address [facility] Number [facility] [address] [place] [address] * Hepatic function panel (05/30/2018 12:12 AM CDT) Protein, Total 7.2 6.0 - 8.5 gm/dL [facility] Albumin 3.8 3.5 - 5.0 g/dL [facility] Total Bilirubin 0.2 0.1 - 1.3 mg/dL [facility] Bilirubin, Direct 0.1 0.0 - 0.5 mg/dL [facility] Alkaline Phosphatase 81 30 - 115 U/L [facility] AST 16 5 - 40 U/L [facility] ALT 11 6 - 50 U/L [facility] Specimen Blood Performing Organization Address City/State/Zipcode Phone Number [facility] [address] [place] [address] * CT abdomen & pelvis - renal stone evaluation without iv contrast (05/29/2018 10:28 PM CDT) Specimen Narrative Performed At FINAL REPORT [facility] CT abdomen and pelvis without intravenous contrast. [...] [facility] B1 C013X [facility] Consult Reading Room Procedure Note Interface, External [...] Report Verified Date/Time: 05/29/2018 22:39:39 Reading Location: [facility] C013X [facility] Consult Reading Room Performing Organization Address City/State/Zipcode Phone Number [facility] * Urinalysis w/Microscopic + Reflex to Culture (05/29/2018 10:13 PM CDT) Color, UA Yellow [facility] Clarity, UA Cloudy [facility] Specific [place], UA 1.017 1.001 - 1.035 [facility] pH, UA 6.0 5.0 - 8.0 [facility] Protein, UA Negative Negative [facility] Glucose, UA Negative Negative [facility] Ketones, UA Negative Negative [facility] Bilirubin, UA Negative Negative [facility] Blood, UA Large (A) Negative [facility] Nitrite, UA Negative Negative [facility] Leukocytes, UA Large (A) Negative [facility] Urobilinogen, UA <1.0 0.2 - 1.0 mg/dL [facility] RBC, UA 583 /HPF [facility] WBC, UA 15 /HPF [facility] Bacteria, UA Occasional [facility] Mucus Rare [facility] Squam Epithel, UA 6 /HPF [facility] Specimen Source [facility] Specimen Urine Performing Organization Address City/[facility]/Zipcode Phone Number [facility] [address] [place] [address] * Urine culture (05/29/2018 10:13 PM CDT) Result >100,000 col/mL skin roney [facility] Specimen Urine Performing Organization Address City/[facility]/Zipcode Phone Number [facility] [address] [place] [address] after 08/08/2017 Insurance Payer Benefit Subscriber ID Type Phone Address Plan / Group [employer] C[employer] xxxxxxxx [facility] [employer] [place] [id number] Advance Directives For more information, please contact: [facility] [address] [place] [address] Date Inactivated Comments Code Status Date Activated 06/03/2018 11:35 PM Full Code 05/30/2018 2:52 AM This code status was determined by: Patient
[2018-08-09] MEDS ORDERED: ASPIRIN 81 MG CHEW TAB PO ONE (11:45)
[2018-08-09 12:32] LABS: BASOPHILS # (AUTO) 0.1 (0.0-0.1); BASOPHILS % 0.7 % (0.0-1.0); EOSINOPHILS # (AUTO) 0.4 (0.0-0.4); EOSINOPHILS % 5.2 % (0.0-6.0); HEMATOCRIT 39.8 % (34.2-44.1); LYMPHOCYTES # (AUTO) 2.5 (1.0-3.2); LYMPHOCYTES % 32.9 % (18.0-39.1); MEAN CORPUSCULAR HEMOGLOBIN 32.6 pg (28-32); MEAN CORPUSCULAR HGB CONC 35.2 g/dL (31-35); MEAN CORPUSCULAR VOLUME 92.8 fL (81-99); MONOCYTES # (AUTO) 0.4 (0.2-0.8); MONOCYTES % 5.5 % (4.4-11.3); NEUTROPHILS # (AUTO) 4.1 (2.1-6.9); NEUTROPHILS % 55.4 % (38.7-80.0); PLATELET COUNT 285 x10e3/uL (140-360); RED BLOOD COUNT 4.29 x10e6/uL (3.6-5.1); RED CELL DISTRIBUTION WIDTH 12.7 % (11.7-14.4)
[2018-08-09 12:49] LABS: INR 0.96; PROTHROMBIN TIME 13.3 seconds (11.9-14.5)
[2018-08-09 12:50] LABS: PARTIAL THROMBOPLASTIN TIME 26.4 seconds (23.8-35.5)
[2018-08-09 12:59] LABS: ALANINE AMINOTRANSFERASE 20 IU/L (0-55); ALBUMIN 3.7 g/dL (3.5-5.0); ALBUMIN/GLOBULIN RATIO 0.9 (0.8-2.0); ALKALINE PHOSPHATASE 84 IU/L (40-150); ANION GAP 15.8 mmol/L (8-16); BLOOD UREA NITROGEN 19 mg/dL (7-26); BUN/CREATININE RATIO 24 (6-25); CALCIUM 9.7 mg/dL (8.4-10.2); CARBON DIOXIDE 23 mmol/L (22-29); CHLORIDE 101 mmol/L (98-107); CREATINE KINASE 39 IU/L (29-168); CREATININE, SERUM 0.79 mg/dL (0.57-1.11); EST GLOMERULAR FILTRATION RATE > 60 ML/MIN (60-); GLUCOSE 126 mg/dL (74-118); MAGNESIUM 2.4 MG/DL (1.3-2.1); POTASSIUM 3.8 mmol/L (3.5-5.1); SODIUM 136 mmol/L (136-145)
[2018-08-09 14:00] LABS: BILIRUBIN,URINE NEGATIVE (NEGATIVE); CLARITY,URINE CLEAR (CLEAR); COLOR,URINE YELLOW (YELLOW); KETONES,URINE NEGATIVE (NEGATIVE); LEUKOCYTE ESTERASE ,URINE TRACE (NEGATIVE); NITRITE,URINE NEGATIVE (NEGATIVE); PROTEIN,URINE DIPSTICK NEGATIVE (NEGATIVE); URINE UROBILINOGEN 0.2 mg/dL (0.2 - 1)
[2018-08-09 14:11] LABS: AMORPHOUS SEDIMENT,URINE MODERATE (FEW); BACTERIA,URINE MANY /HPF; EPITHELIAL CELLS,URINE MODERATE /LPF
--- NOTE | 2018-08-09 14:12 | Diagnostic Imaging Report ---
EXAM: CHEST 2 VIEWS, PA and lateral DATE: 08/09/2018 Time stamp on exam: 1:22 PM INDICATION: Chest pain COMPARISON: None FINDINGS: LINES/TUBES: Left subclavian chest port with tip overlying the SVC. LUNGS: No consolidations or edema. PLEURA: No effusions or pneumothorax. HEART AND MEDIASTINUM: Normal size and contour. BONES AND SOFT TISSUES: No acute findings. IMPRESSION: No acute thoracic abnormality. Signed by: Dr. Ren Alexandre DO on 08/09/2018 2:09 PM
[2018-08-09] MEDS ORDERED: ONDANSETRON HCL INJ 2MG/ML 2ML 2 MG/ML VIAL IV STA (14:31)
[2018-08-09] MEDS ORDERED: MORPHINE SULFATE INJ 4 MG/ML INJ 1ML IV ONE (14:45)
[2018-08-09] MEDS ORDERED: ONDANSETRON HCL INJ 2MG/ML 2ML 2 MG/ML VIAL ONE (14:49)
[2018-08-09] MEDS ORDERED: MORPHINE SULFATE INJ 4 MG/ML INJ 1ML ONE (14:49)
[2018-08-09] MEDS ORDERED: ENOXAPARIN SODIUM INJ 100 MG/ML SYR SC SCH (16:00)
[2018-08-09] MEDS ORDERED: MORPHINE SULFATE 2 MG/ML SYR 1ML IV PRN (16:00)
--- NOTE | 2018-08-09 16:00 | NUR ---
WITNESSED CONSENT FOR PLACEMENT OF PICC LINE AT THIS TIME, PT VERBALIZES UNDERSTANDING OF NEED FOR PROCEDURE DISCUSSED WITH DR. ALANIS, PT VERBALIZES UNDERSTANDING OF RISKS AND BENEFITS OF PROCEDURE.
[2018-08-09] MEDS ORDERED: ENOXAPARIN INJ 80 MG/0.8 ML SYR SC SCH (16:15)
--- OUTSIDE RECORDS SUMMARY | 2018-08-09 16:31 | XMS REPORT | Clinical Summary ---
Author Author STUART [facility] Organization [facility] Address Unknown Phone Unavailable Care Team Providers Care Cardiograph Operator Name Role Phone Rayray Anderson PCP Allergies [...] Overview: Added automatically from request for surgery [id number] Hematemesis, presence of nausea not specified 05/29/2018 Overview: Added automatically from request for surgery [id number] Coronary artery disease Diabetes mellitus Hyperlipidemia Hypertension [...] unspecified vessel or lesion type, unspecified whether [place] or transplanted heart; Hyperlipidemia, unspecified hyperlipidemia type; Hematemesis, presence of nausea not specified; Esophagitis 05/29/2018 [facility] General Internal Medicine - Encounter 06/03/2018 after [...] ms QTC Calculatio n(Bazett) 428 ms P [place] 22 degrees R [place] -6 degrees T [place] 42 degrees Sinus bradycardi a Nonspecifi c [...] is included. POC-Glucose Meter 97Comment: TESTED AT [facility] 70 - 110 mg/dL [facility] [address] [facility] [address] Specimen Blood Performing Organization Address City/State/Zipcode Phone Number [facility] [address] [place] [address] [facility] * REPORT OF PROCEDURE - ENDOSCOPY URL (06/03/2018 3:48 PM CDT) Narrative Performed At * Tissue Exam (06/03/2018 3:33 PM CDT) Case Report Surgical Pathology [facility] Report Case: [id number] Authorizing Provider:Amrik Dale MDCollectmoraima d: 06/03/2018 1533 Ordering Location: [facility] ENDOSCOPY SERVICESReceived: 06/04/2018 0903 Pathologist: Nanci Nassar MD Specimens: A) - Antrum, bx B) - Stomach,Body, bx C) - Esophagus, irregular z line bx DIAGNOSIS A. STOMACH, ANTRUM, BIOPSY [facility] - NON-SPECIFIC REACTIVE CHANGES - [...] OR DYSPLASIA Signing Pathologist Direct Phone Line: [phone] CPT Code(s) 45559 X 3, 08600 X 2 [facility] CLINICAL HISTORY Hematemesis. Procedure upper [facility] endoscopy SPECIMEN SOURCE A. Antrum biopsy. B. Stomach [facility] body biopsy. C. Irregular Z-line biopsy GROSS DESCRIPTION The instrument, containers, [facility] paperwork, and cassettes all read [id number]. Received in formalin labeled with the patient's [...] JF/ew SPECIAL STUDIES The interpretation of this [facility] case included the use of immunohistochemistry or special stains. Immunohistochemistry technical testing was performed at [facility], Pathology Laboratory where it was developed and [...] Esophageal structure (body structure) Performing Organization Address City/[facility]/Zipcode Phone Number [facility] [address] [place] [address] * ECG 12 lead (06/03/2018 1:38 PM CDT) Specimen Narrative Performed At Ventricular Rate 58 BPM GE MUSE Atrial Rate 58 BPM P-R Interval 168 ms QRS Duration 92 ms Q-T Interval 436 ms QTC Calculation(Bazett) 428 ms P [place] 22 degrees R [place] -6 degrees T [place] 42 degrees Sinus bradycardia Nonspecific T wave abnormality Abnormal ECG When compared with ECG of 03-FEB-2004 22:35, PREVIOUS ECG IS PRESENT Procedure Note Interface, External Ris In - 06/04/2018 6:22 AM CDT Ventricular Rate 58 BPM Atrial Rate 58 BPM P-R Interval 168 ms QRS Duration 92 ms Q-T Interval 436 ms QTC Calculation(Bazett) 428 ms P [place] 22 degrees R [place] -6 degrees T [place] 42 degrees Sinus bradycardia Nonspecific T wave abnormality Abnormal ECG When compared with ECG of 03-FEB-2004 22:35, PREVIOUS ECG IS PRESENT Performing Organization Address City/[facility] Phone Number [facility] * CBC with platelet count + automated diff (06/03/2018 3:25 AM CDT) Only the most recent of 5 results within the time period is included. WBC 6.4 4.0 - 10.0 K/L [facility] RBC 3.73 (L) 4.00 - 5.00 M/L [facility] Hemoglobin 11.9 (L) 12.0 - 15.5 GM/DL [facility] Hematocrit 35.6 (L) 36.0 - 46.0 % [facility] MCV 95.4 82.0 - 99.[address] [facility] MCH 31.9 27.0 - 33.0 pg [facility] MCHC 33.4 32.0 - 36.0 GM/DL [facility] RDW 13.2 12.0 - 15.0 % [facility] Platelets 229 150 - 430 K/CU MM [facility] MPV 10.0Comment: MPV-Approximately 6.0 - 11.5 fL [facility] 20% positive bias due to method change. nRBC 0 0 - 0 /[address] [facility] % Neutros 51 % [facility] % Lymphs 34 % [facility] % Monos 8 % [facility] % Eos 7 % [facility] % Baso 1 % [facility] # Neutros 3.29 1.80 - 8.00 K/L [facility] # Lymphs 2.15 1.48 - 4.50 K/L [facility] # Monos 0.52 0.00 - 1.30 K/L [facility] # Eos 0.42 0.00 - 0.50 K/L [facility] # Baso 0.03 0.00 - 0.20 K/L [facility] Immature 0 0 - 0 % [facility] Granulocytes-Relative Specimen Blood Performing Organization Address [facility]/Zipcode Phone Number [facility] [address] [place] [address] * Prothrombin time/INR (06/03/2018 3:25 AM CDT) Only the most recent of 4 results within the time period is included. Protime 18.3 (H) 11.8 - 14.4 seconds [facility] INR 1.5 1.2 - 1.5 [facility] Specimen Blood Narrative Performed At RECOMMENDED COUMADIN/WARFARIN INR THERAPY RANGES [facility] STANDARD DOSE: 2.0 - 3.0 Includes: PROPHYLAXIS for venous thrombosis, systemic embolization; TREATMENT for venous thrombosis and/or pulmonary embolus. HIGH RISK: Target INR is 2.5-3.5 for patients with mechanical heart valves. Performing Organization Address City/[facility] Phone Number [facility] [address] [place] [address] * Basic Metabolic Panel (06/02/2018 5:27 AM CDT) Only the most recent of 4 results within the time period is included. Sodium 138 135 - 148 meq/L [facility] Potassium 3.8 3.5 - 5.5 meq/L [facility] Chloride 105 98 - 106 meq/L [facility] CO2 24 20 - 31 meq/L [facility] BUN 5 (L) 10 - 26 mg/dL [facility] Creatinine 0.68 0.50 - 1.20 mg/dL [facility] Glucose 93 70 - 110 mg/dL [facility] Calcium 8.5 8.5 - 10.5 mg/dL [facility] EGFR Comment: INSUFFICIENT CLINICAL mL/min/1.[address] [facility] DATA TO CALCULATE ESTIMATED GFR. Specimen Blood Performing Organization Address [facility] Phone Number [facility] [address] [place] [address] * PT/aPTT (05/30/2018 12:12 AM CDT) Protime 37.8 (H) 11.8 - 14.[address] [facility] INR 4.0 (H) 1.2 - 1.5 [facility] PTT 56.5 (H) 23.2 - 36.[address] [facility] Specimen Blood Narrative Performed At RECOMMENDED COUMADIN/WARFARIN INR THERAPY RANGES [facility] STANDARD DOSE: 2.0 - 3.0 Includes: PROPHYLAXIS for venous thrombosis, systemic embolization; TREATMENT for venous thrombosis and/or pulmonary embolus. HIGH RISK: Target INR is 2.5-3.5 for patients with mechanical heart valves. Performing Organization Address [facility] Number [address] [address] * Lactic acid, venous (05/30/2018 12:12 AM CDT) Lactate, Venous 0.8Comment: Specimen slightly 0.5 - 2.2 mmol/L [facility] hemolyzed Specimen Blood Performing Organization Address [facility] Number [place] [id number] [place] [address] * Lipase (05/30/2018 12:12 AM CDT) Lipase 22 8 - 78 U/L [facility] Specimen Blood Performing Organization Address [facility] Number [facility] [address] [place] [address] * Hepatic function panel (05/30/2018 12:12 AM CDT) Protein, Total 7.2 6.0 - 8.5 gm/dL [facility] Albumin 3.8 3.5 - 5.0 g/dL [facility] Total Bilirubin 0.2 0.1 - 1.3 mg/dL [facility] Bilirubin, Direct 0.1 0.0 - 0.5 mg/dL [facility] Alkaline Phosphatase 81 30 - 115 U/L [facility] AST 16 5 - 40 U/L [facility] ALT 11 6 - 50 U/L [facility] Specimen Blood Performing Organization Address City/State/Zipcode Phone Number [facility] [address] [place] [address] * CT abdomen & pelvis - renal stone evaluation without iv contrast (05/29/2018 10:28 PM CDT) Specimen Narrative Performed At FINAL REPORT [facility] CT abdomen and pelvis without intravenous [...] MD Report Verified Date/Time:05/29/2018 22:39:39 Reading [facility] C[facility] Consult Reading Room Procedure Note [...] Report Verified Date/Time: 05/29/2018 22:39:39 Reading Location: [facility] C013X [facility] Consult Reading Room Performing Organization Address City/State/Zipcode Phone Number [facility] * Urinalysis w/Microscopic + Reflex to Culture (05/29/2018 10:13 PM CDT) Color, UA Yellow [facility] Clarity, UA Cloudy [facility] Specific Warren, UA 1.017 1.001 - 1.035 [facility] pH, UA 6.0 5.0 - 8.0 [facility] Protein, UA Negative Negative [facility] Glucose, UA Negative Negative [facility] Ketones, UA Negative Negative [facility] Bilirubin, UA Negative Negative [facility] Blood, UA Large (A) Negative [facility] Nitrite, UA Negative Negative [facility] Leukocytes, UA Large (A) Negative [facility] Urobilinogen, UA <1.0 0.2 - 1.0 mg/dL [facility] RBC, UA 583 /HPF [facility] WBC, UA 15 /HPF [facility] Bacteria, UA Occasional [facility] Mucus Rare [facility] Squam Epithel, UA 6 /HPF [facility] Specimen Source [facility] Specimen Urine Performing Organization Address City/[facility]/Zipcode Phone Number [facility] [address] [place] [address] * Urine culture (05/29/2018 10:13 PM CDT) Result >100,000 col/mL skin roney [facility] Specimen Urine Performing Organization Address City/[facility]/Zipcode Phone Number [facility] [address] [place] [address] after 08/08/2017 Insurance Payer Benefit Subscriber ID Type Phone Address Plan / Group [employer] CIGNA xxxxxxxx [facility] [employer] Contracted [place] [id number] Advance Directives For more information, please contact: [facility] [address] [place] [address] Date Inactivated Comments Code Status Date Activated 06/03/2018 11:35 PM Full Code 05/30/2018 2:52 AM This code status was determined by: Patient
--- NOTE | 2018-08-09 17:00 | NUR ---
PICC LINE NURSE AT BEDSIDE FOR LINE PLACEMENT AT THIS TIME.
--- NOTE | 2018-08-09 17:30 | NUR ---
X-RAY AT BEDSIDE AT THIS TIME FOR POST-LINE PLACEMENT X-RAY.
--- NOTE | 2018-08-09 18:32 | Diagnostic Imaging Report ---
EXAMINATION: CHEST XRAY LINE PLACEMENT COMPARISON: Chest x-ray 1322 hours INDICATION: ^PICC LINE PLACEMENT ^[id number] ^1720 DISCUSSION: Frontal view of the chest obtained at 1731 hours. HEART AND MEDIASTINUM: The cardiomediastinal silhouette is unremarkable. LINES: MediPort catheter terminates in the SVC and is stable in position. Right PICC line terminates in the SVC. No pneumothorax. LUNGS: The lungs are well inflated and clear. No pneumonia or pulmonary edema. PLEURA: No pleural effusions. BONES AND SOFT TISSUES: Stable degenerative changes of the spine and right AC joint. No focal osseous lesion. The soft tissues are normal. IMPRESSION: Right PICC line terminates in the SVC without pneumothorax. Stable MediPort catheter. No acute cardiopulmonary process. Signed by: Dr. Letitia Dietz MD on 08/09/2018 6:28 PM
--- NOTE | 2018-08-09 18:33 | NUR ---
PICC LINE OKAY TO USE PER RADIOLOGIST, WILL MEDICATE PT PER REQUEST. PT WILL GO TO CT AND THEN TO OBS FLOOR AFTER EXAM. RECEIVING NURSE MADE AWARE OF THIS.
[2018-08-09] MEDS: SODIUM CHLORIDE 0.9% 1000ML 1,000 ML IV SCH (18:40)
--- NOTE | 2018-08-09 19:43 | Diagnostic Imaging Report ---
CT chest pulmonary embolism protocol CPT code: 91976 INDICATION: Chest pain ^PE protocol ^[id number] ^1850 TECHNIQUE: Thin collimation axial images obtained through the level of the pulmonary arteries with additional imaging through the chest following the uneventful administration of 100 cc of low osmolar, nonionic intravenous contrast. Images reconstructed into coronal and sagittal MIPs for complete evaluation of the tortuous and overlapping pulmonary vascular structures and to reduce patient radiation dose. RADIATION DOSE: Total DLP: 502.5 mGy*cm Estimated effective dose: (DLP x 0.015 x size factor) mSv CTDIvol has been reviewed. It is below the limits set by the Radiation Protocol Committee (RPC). Dose reduction techniques used: Automated exposure control, adjustment of the mAs and/or kVp according to patient size, standardized low-dose protocol, and/or iterative reconstruction technique. COMPARISON: CT abdomen 03/28/2018 FINDINGS: Pulmonary artery: No filling defects are appreciated within the main, left, right, lobar or visualized segmental pulmonary arteries to suggest embolism. Aorta: The thoracic aorta is not aneurysmal. No evidence for dissection. Lymph nodes: No enlarged axillary, supraclavicular, mediastinal, or hilar lymph nodes. Thyroid: Normal in size without mass in the visualized parenchyma.. Mediastinum: The heart is normal in size. There are prominent pericardial fat pads. There is a small hiatal hernia. No pericardial effusion. Right PICC line terminates in the SVC. MediPort catheter terminates in the SVC. Lungs: Right Lung: Mild basilar atelectasis. Noncalcified nodule in the posterior upper lobe measures 4 mm. No consolidation. Left Lung: Mild basilar atelectasis. No mass or infiltrate. Pleura: No pleural effusion or pleural based mass.. Abdomen: Decreased attenuation suggestive of steatosis. No mass in the visualized portion of the liver. The gallbladder is absent. There is fatty atrophy of the pancreas. Remainder of the abdomen appears normal. Bones: Mild degenerative changes of the spine. No focal osseous lesions. IMPRESSION: 1. No evidence of pulmonary embolus or aortic dissection. 2. Mild bibasilar atelectasis. Nonspecific nodule in the right upper lobe. 3. Steatosis. Signed by: Dr. Letitia Dietz MD on 08/09/2018 7:40 PM
[2018-08-09 19:48] VITALS: BP 140/71
[2018-08-09 20:58] LABS: CREATINE KINASE 39 IU/L (29-168)
[2018-08-09 21:00] VITALS: BP 140/71
[2018-08-09] MEDS ORDERED: SODIUM CHLORIDE 0.9% 100 ML 100 ML ONE (21:53)
[2018-08-09] MEDS ORDERED: IOPAMIDOL 370 MG/ML 200 ML INFUS..BTL INJ ONE (21:53)
[2018-08-09] MEDS: MORPHINE SULFATE INJ 4 MG/ML INJ 1ML IV PRN (22:22)
[2018-08-09] MEDS: ONDANSETRON HCL INJ 2MG/ML 2ML 2 MG/ML VIAL IV PRN (23:42)
[2018-08-10] VITALS (8 sets, daily range): BP systolic 95–113; BP diastolic 51–74
[2018-08-10] MEDS: MORPHINE SULFATE INJ 4 MG/ML INJ 1ML IV PRN ×6 (02:30→23:08)
[2018-08-10] MEDS: SODIUM CHLORIDE 0.9% 1000ML 1,000 ML IV SCH ×2 (06:16→18:45)
--- NOTE | 2018-08-10 06:45 | NUR ---
Patient endorsed to next shift for continuity of care.
[2018-08-10 06:54] LABS: BASOPHILS % 0.6 % (0.0-1.0); EOSINOPHILS # (AUTO) 0.4 (0.0-0.4); EOSINOPHILS % 6.6 % (0.0-6.0); HEMATOCRIT 36.2 % (34.2-44.1); HEMOGLOBIN 12.3 g/dL (12.0-16.0); LYMPHOCYTES # (AUTO) 2.9 (1.0-3.2); LYMPHOCYTES % 42.7 % (18.0-39.1); MEAN CORPUSCULAR HEMOGLOBIN 32.6 pg (28-32); MONOCYTES # (AUTO) 0.5 (0.2-0.8); MONOCYTES % 7.3 % (4.4-11.3); NEUTROPHILS # (AUTO) 2.8 (2.1-6.9); NEUTROPHILS % 42.5 % (38.7-80.0); PLATELET COUNT 228 x10e3/uL (140-360); RED BLOOD COUNT 3.77 x10e6/uL (3.6-5.1); RED CELL DISTRIBUTION WIDTH 12.7 % (11.7-14.4)
[2018-08-10 06:55] LABS: INR 0.97; PROTHROMBIN TIME 13.4 seconds (11.9-14.5)
[2018-08-10 06:56] LABS: PARTIAL THROMBOPLASTIN TIME 29.2 seconds (23.8-35.5)
[2018-08-10 07:02] LABS: ANION GAP 12.1 mmol/L (8-16); BLOOD UREA NITROGEN 19 mg/dL (7-26); BUN/CREATININE RATIO 26 (6-25); CALCIUM 8.5 mg/dL (8.4-10.2); CARBON DIOXIDE 24 mmol/L (22-29); CHLORIDE 108 mmol/L (98-107); CREATININE, SERUM 0.74 mg/dL (0.57-1.11); EST GLOMERULAR FILTRATION RATE > 60 ML/MIN (60-); GLUCOSE 104 mg/dL (74-118); POTASSIUM 4.1 mmol/L (3.5-5.1); SODIUM 140 mmol/L (136-145)
[2018-08-10 07:03] LABS: CREATINE KINASE 37 IU/L (29-168)
--- NOTE | 2018-08-10 07:41 | Diagnostic Imaging Report ---
EXAMINATION: CHEST SINGLE (PORTABLE) INDICATION: ^CP/SOB ^[id number] ^0605 COMPARISON: CT chest and chest radiograph 08/09/2018 FINDINGS: AP view TUBES and LINES: Right PICC with tip overlying the cubital junction, unchanged. Left chest port with tip overlying the caval atrial junction, unchanged. LUNGS: Lungs are well inflated. Platelike atelectasis in both lung bases, new since prior exam. There is no evidence of pneumonia or pulmonary edema. PLEURA: No pleural effusion or pneumothorax. HEART AND MEDIASTINUM: The cardiomediastinal silhouette is unremarkable.. BONES AND SOFT TISSUES: No acute osseous lesion. Soft tissues are unremarkable. UPPER ABDOMEN: No free air under the diaphragm. IMPRESSION: Interval development of mild platelike atelectasis in both lung bases. Signed by: Dr. Kathia Baxter M.D. on 08/10/2018 7:38 AM
[2018-08-10] MEDS: ASPIRIN 325 MG TAB EC PO SCH (07:53)
--- NOTE | 2018-08-10 08:20 | NUR ---
Pt in bed resting at this time. C/o pain to medial chest that radiates to back and SOB. NC at 2LPM provided at this time. Pain medication administered prior. PICC line to R upper arm, intact patent, IV fluids being administered at this time. Pt is A&O x3, able to ambulate by self without assistance. Family member at bedside. Call light within reach, bed locked and in lowest position.
[2018-08-10] MEDS: ONDANSETRON HCL INJ 2MG/ML 2ML 2 MG/ML VIAL IV PRN ×4 (10:30→23:08)
--- NOTE | 2018-08-10 15:38 | NUR ---
H&P PRIMARY CARE PHYSICIAN: Dr. Anderson cc: cp/sob HISTORY OF PRESENT ILLNESS: This is a 63-year-old woman developed cp/sob for 4 days; Has been off coumadin for 17 days waiting for port placement for chemo/other tx. CT PE protocol negative for PE. PAST MEDICAL HISTORY: Acute gastroenteritis, Diabetes mellitus type 2; hypertension; seizure; myocardial infarction, status post stent placement more than 2 years ago; DVT of the right arm and pulmonary embolism dx 2014; stroke; history of colon cancer dx 2010, status post resection, status post colostomy, status post reversal; COPD; diverticulosis; depression. PAST SURGICAL HISTORY: Coronary stent placement; appendectomy; colon cancer resection, status post colostomy, status post reversal. ALLERGIES: PER ELECTRONIC MEDICAL RECORD. FAMILY/SOCIAL HISTORY: Patient is . No alcohol, illicits, or cigarettes. MEDICATIONS: Per electronic medical record. REVIEW OF SYSTEMS: Denies any skin rash, dizziness, vision change. Denies any leg pain, back pain. PHYSICAL EXAMINATION: VITAL SIGNS: Have been reviewed. GENERAL APPEARANCE: Tired-appearing woman resting in bed. HEENT: Anicteric. CARDIOVASCULAR: Normal S1 and S2. LUNGS: Moderate breath sounds. ABDOMEN: Soft, nondistended. nontender. EXTREMITIES: No edema or calf tenderness. NEUROLOGICAL: She is alert and oriented x3. She is moving all extremities. SKIN: Dry. PSYCHIATRIC: Flat affect. LABS: Reviewed. MEDICATIONS: Reviewed. ASSESSMENT: This is 63-year-old woman: 1. CP 2. Bipolar disorder. 3. Depression. 4. History of colon cancer, status post resection. 5. Diabetes mellitus type 2. 6. Diabetic retinopathy. 7. Diverticulosis. 8. Sleep apnea. 9. Hypertension. 10. Seizure disorder. 11. Chronic obstructive pulmonary disease. 12. History of stroke. 13. Coronary artery disease with history of stents. 14. Hx DVT right arm and PE PLAN: CE negative check lipids Get echo; consult cardio; Order Lexiscan resume home meds. ppi on AC dispo; order lexiscan/echo/cardio consult; Needs to establish care with Onc and Cardio here in [place], instead of continuing to go to the [facility] when she lives in [place]. Castillo Santana MD, PhD.
[2018-08-10] MEDS ORDERED: ZOLPIDEM TARTRATE 10 MG TAB PO PRN (15:45)
[2018-08-10 16:51] LABS: CHOL/HDL RATIO 3.6 (3.0-3.6)
--- NOTE | 2018-08-10 19:00 | NUR ---
RECEIVED REPORT FROM DAY NURSE. PATIENT IS RESTING COMFORTABLY IN BED. BED IS IN LOWEST POSITION AND CALL BEL IS WITHIN REACH. WILL CONTINUE TO MONITOR PATIENT.
--- NOTE | 2018-08-10 19:57 | NUR ---
CARDIOLOGY HAS BEEN CONTACTED IN REGARDS TO WHETHER STRESS TEST CAN BE PERFORMED TOMORROW. AWAITING CALL BACK FROM
[2018-08-10] MEDS: PHENYTOIN SODIUM EXT REL 100 MG CAP PO SCH (21:19)
[2018-08-10] MEDS: ENOXAPARIN INJ 80 MG/0.8 ML SYR SC SCH (21:19)
[2018-08-10] MEDS: INSULIN GLARGINE 100 UNITS/ML VIAL SQ SCH (22:00)
[2018-08-10] MEDS: ACETAMINOPHEN 325 MG TAB PO PRN (23:08)
[2018-08-11] VITALS (8 sets, daily range): BP systolic 96–125; BP diastolic 49–58
[2018-08-11] MEDS: ONDANSETRON HCL INJ 2MG/ML 2ML 2 MG/ML VIAL IV PRN ×4 (03:34→20:15)
[2018-08-11] MEDS: MORPHINE SULFATE INJ 4 MG/ML INJ 1ML IV PRN ×4 (03:34→20:15)
--- NOTE | 2018-08-11 07:12 | NUR ---
report given to day nurse. patient is resting comfortably in bed. bed is in lowest position and call judd is within reach.
[2018-08-11] MEDS: ENOXAPARIN INJ 80 MG/0.8 ML SYR SC SCH ×2 (08:26→20:26)
[2018-08-11] MEDS: PAROXETINE HCL 20 MG TAB PO SCH (08:26)
[2018-08-11] MEDS: SERTRALINE HCL 50 MG TAB PO SCH (08:26)
[2018-08-11] MEDS: PHENOBARBITAL 30 MG TAB PO SCH (08:26)
[2018-08-11] MEDS: PHENYTOIN SODIUM EXT REL 100 MG CAP PO SCH ×2 (08:26→20:26)
[2018-08-11] MEDS: PANTOPRAZOLE SOD 40 MG TABEC PO SCH (08:26)
[2018-08-11] MEDS: ASPIRIN 325 MG TAB EC PO SCH (08:26)
[2018-08-11] MEDS: ACETAMINOPHEN 325 MG TAB PO PRN (08:27)
[2018-08-11] MEDS: SODIUM CHLORIDE 0.9% 1000ML 1,000 ML IV SCH ×2 (08:33→20:26)
[2018-08-11] MEDS ORDERED: WARFARIN SODIUM 10 MG PO SCH (09:00)
--- NOTE | 2018-08-11 10:39 | NUR ---
IM- progress note O/N; no Events REVIEW OF SYSTEMS: Denies any skin rash, dizziness, vision change. Denies any leg pain, back pain. PHYSICAL EXAMINATION: VITAL SIGNS: Have been reviewed. GENERAL APPEARANCE: Tired-appearing woman resting in bed. HEENT: Anicteric. CARDIOVASCULAR: Normal S1 and S2. LUNGS: Moderate breath sounds. ABDOMEN: Soft, nondistended. nontender. EXTREMITIES: No edema or calf tenderness. NEUROLOGICAL: She is alert and oriented x3. She is moving all extremities. SKIN: Dry. PSYCHIATRIC: Flat affect. LABS: Reviewed. MEDICATIONS: Reviewed. ASSESSMENT: This is 63-year-old woman: 1. CP 2. Bipolar disorder. 3. Depression. 4. History of colon cancer, status post resection. 5. Diabetes mellitus type 2. 6. Diabetic retinopathy. 7. Diverticulosis. 8. Sleep apnea. 9. Hypertension. 10. Seizure disorder. 11. Chronic obstructive pulmonary disease. 12. History of stroke. 13. Coronary artery disease with history of stents. 14. Hx DVT right arm and PE PLAN: CE negative check lipids Get echo; consult cardio; Order Lexiscan resume home meds. ppi on AC dispo; order lexiscan/echo/cardio consult; Needs to establish care with Onc and Cardio here in [place], instead of continuing to go to the [facility] when she lives in [place]. 08/11 await testing; treat UTI. Castillo Santana MD, PhD.
[2018-08-11] MEDS: LEVOFLOXACIN 500MG/D5W 100ML 100 ML IV SCH (11:57)
--- NOTE | 2018-08-11 16:27 | Consultation ---
DATE OF CONSULTATION: 08/11/2018 Cardiology Consultation REASON FOR CONSULTATION: Chest pain and shortness of breath. HISTORY OF PRESENT ILLNESS: This is a 63-year-old female, who reports that four days ago she was in her usual health; however, she started experiencing some pain in her chest and especially towards her right side, she reports that this pain feels like it is more in her breast and it is limiting her mobility for she is not able to extend her right arm without the pain worsening. She also does report that this pain is substernal and does get worse with deep inhalation and also exertion. At this moment, she rates this pain to be 7/10. She does report and endorse a cardiac history, reports that she had a heart attack seven years ago and also CAD with stents placed, last stent was placed about five years ago. She reports that she has not had a recent mammogram, however, her right breast is hurting her. At this moment, she denies any palpitations, chills, abdominal pain, dizziness, syncope, or CARLSON. She does report having a fever, T-max recorded 100.6. PAST MEDICAL HISTORY: Hypertension, diabetes, COPD, CT, CAD, CVA, TIA, colon cancer, sleep apnea, DVT with a PE five years ago, diverticulosis, seizure, bipolar, depression, colostomy with closure in the past secondary to her colon cancer. REVIEW OF SYSTEMS: Negative except as mentioned above. PAST SURGICAL HISTORY: Colon cancer resection with colostomy closure, appendectomy, partial hysterectomy. SOCIAL HISTORY: She lives at home with her family. She denies any history of smoking or drinking. ALLERGIES: PER ELECTRONIC CHART. PHYSICAL EXAMINATION: VITAL SIGNS: Temperature 98.3, pulse 71, respiratory rate 19, blood pressure 114/56, and oxygen saturation 100% on 2 L nasal cannula. GENERAL: Alert and oriented x3, resting comfortably in bed, does not appear to be in any acute distress. LUNGS: Clear to auscultation in the upper lobes, diminished in the posterior lower lobes with some fine crackles. CARDIOVASCULAR: Regular rate and rhythm. Normal S1, S2. No murmurs, no gallops. NECK: Supple. No JVD noted. ABDOMEN: Soft, nontender. LOWER EXTREMITY: 2+ pedal pulses. No edema. BREASTS: Right breast painful with palpation. CARDIOVASCULAR MEDICATIONS: Aspirin 325 p.o. daily and Lovenox 80 mg subcu every 12 hours. LABS: Labs from yesterday; WBC 6.68, hemoglobin 12.3, hematocrit 36.8, platelets 228. Sodium 140, potassium 4.1, BUN 19, creatinine 0.74, glucose 100. Creatine kinase 37, CK-MB 0.70, troponin less than 0.001. Total cholesterol 157, triglycerides 124, LDL 88. Chest x-ray from yesterday with interval development of mild plate-like atelectasis in both lung bases. Chest CT negative, however, has a nonspecific nodule in the right upper lobe. Initial chest x-ray on admission negative for acute thoracic abnormalities. Telemetry, normal sinus rhythm. IMPRESSION: 1. Atypical chest pain with some typical properties. 2. Coronary artery disease status post stents in the past. 3. Right breast pain. 4. Questionable pneumonia. 5. History of deep venous thrombosis with a pulmonary embolism in the past. 6. Bipolar and depression. RECOMMENDATION: Obtain an echocardiogram, the order has been placed. Cardiac enzymes so far have been negative and have ruled out an acute coronary syndrome. Proceed with the Lexiscan stress test tomorrow morning. Maintain n.p.o. after midnight. I would highly recommend for breast pain workup with likely a mammogram or ultrasound. Repeat chest x-ray daily or empirically treat for pneumonia. Thank you for this consultation. Dr. Santana will continue to follow this patient very closely. Dictated by Claudia Street NP MD PRAFUL LarsenV/MACO /[id number]
[2018-08-11] MEDS: METOPROLOL TARTRATE 25 MG TAB PO SCH (16:43)
--- NOTE | 2018-08-11 17:43 | Consultation ---
DATE OF CONSULTATION: 08/11/2018 HISTORY OF PRESENT ILLNESS: Shira Mcknight is a 63-year-old female, who presented to the ER with history of chest pains, shortness of breath, subsequently admitted for further evaluation and treatment. Past history of colon cancer that the patient claims approximately five years back. The patient claims that she also had a colostomy and then reversal of colostomy by Dr. Obdulio Carr. The patient claimed that she was hospitalized a month back at [facility]. Subsequently, the patient was found to have she calls possibility of colon cancer coming back. The patient was told to have a followup with timber management professor. SOCIAL HISTORY: Noncontributory. FAMILY HISTORY: Noncontributory. ALLERGIES: REPORTED NONE. MEDICATIONS: At this time, 1. Levaquin. 2. Normal saline. 3. Tylenol. 4. Aspirin. 5. Lovenox. 6. Insulin. 7. Ondansetron. 8. Protonix. 9. Paxil. 10. Phenobarbital. 11. Phenytoin. 12. Zoloft. 13. Ambien. 14. Coumadin. REVIEW OF SYSTEMS: HEENT: Normal. CARDIAC: Being on Coumadin and aspirin, the exact reason she could not tell me. RESPIRATORY: Normal. GI: History of colon cancer. : Normal. MUSCULOSKELETAL: History of seizure disorder. NEUROENDOCRINE: History of diabetes mellitus. PSYCHIATRY: History of major depression. PHYSICAL EXAMINATION: GENERAL: A moderately built female. NECK: No palpable adenopathy. HEART: Within normal limits. LUNGS: Clear. BREASTS: Deferred at request. ABDOMEN: Obese. Scar surgery is evident. RECTAL AND VAGINAL: Deferred. CENTRAL NERVOUS SYSTEM: Essentially normal. EXTREMITIES: Essentially normal except for painful both knee joints. LABORATORY DATA: Lab investigations of interest show the patient to have hemoglobin of 14, hematocrit of 39.8, white count 7400, platelets of 285,000. Chemistry shows a sodium of 136, potassium 3.8, chloride is 101, CO2 of 23, BUN 19, creatinine 0.7, glucose 126, calcium 9.7, magnesium reported high at 2.4, bilirubin 0.6, SGOT 20, SGPT 20, alkaline phosphatase 84, total bilirubin 0.8, albumin 3.7, globulin is slightly high at 4.5. Imaging shows a chest x-ray which was reported essentially normal. CT scan of the chest showed mild basilar atelectasis at the right lung, noncalcified nodule in the posterior upper lobe 4 mm, hepatic steatosis, the gallbladder is absent. No other lab investigations of interest are available at this time. IMPRESSION: 1. History of colon cancer status post resection five years back by Dr. Obdulio Carr. 2. Recent abnormal colonoscopy, records to be obtained. 3. History of chest pains, being looked at by child life therapist. 4. History of seizures. 5. On Coumadin and aspirin at the present time. 6. Diabetes mellitus. PLAN, COMMENTS, AND SUGGESTIONS: Suggest a CEA level. Obtain old records. If a CT scan of the abdomen was not done that should be repeated, however, I will not order this unless we have the records. Thank you very much for allowing me to participate in management of this patient. I will confine myself to Hematology only. Schuyler Higgins MD MAQ/MODL /[id number] cc: MD Dr. Monica RiceBadger, [place]
[2018-08-11] MEDS: INSULIN GLARGINE 100 UNITS/ML VIAL SQ SCH (21:21)
[2018-08-12] VITALS (7 sets, daily range): BP systolic 97–123; BP diastolic 55–89
[2018-08-12] MEDS: ONDANSETRON HCL INJ 2MG/ML 2ML 2 MG/ML VIAL IV PRN ×3 (00:31→08:30)
[2018-08-12] MEDS: MORPHINE SULFATE INJ 4 MG/ML INJ 1ML IV PRN ×4 (00:31→14:57)
--- NOTE | 2018-08-12 06:50 | NUR ---
walking rounds made with direct marketing manager nurse, patient sitting up in bed and in no distress. family member at bedside. call judd within reach and bed in lowest position.
--- NOTE | 2018-08-12 07:09 | NUR ---
D/C summary: Principal Dx: 1. atypical CP 2.UTI seconary dx: Bipolar disorder. Depresion. PLAN: CE negative check lipids Get echo; consult cardio; Order Lexiscan resume home meds. ppi on AC dispo; order lexiscan/echo/cardio consult; Needs to establish care with Onc and Cardio here in [place], instead of continuing to go to the [facility] when she lives in [place]. 08/11 await testing; treat UTI. 08/12 stress pending; if negative, d/c home and f/u with onc Negative testing. d/c >35mins stable f/u pcp 1 week and cardiology 2 weeks d/c home Castillo Santana MD, PhD.
[2018-08-12] MEDS: SERTRALINE HCL 50 MG TAB PO SCH (08:20)
[2018-08-12] MEDS: PAROXETINE HCL 20 MG TAB PO SCH (08:20)
[2018-08-12] MEDS: PHENOBARBITAL 30 MG TAB PO SCH (08:20)
[2018-08-12] MEDS: PANTOPRAZOLE SOD 40 MG TABEC PO SCH (08:20)
[2018-08-12] MEDS: ENOXAPARIN INJ 80 MG/0.8 ML SYR SC SCH (08:20)
[2018-08-12] MEDS: PHENYTOIN SODIUM EXT REL 100 MG CAP PO SCH (08:20)
[2018-08-12] MEDS: SODIUM CHLORIDE 0.9% 1000ML 1,000 ML IV SCH (08:20)
[2018-08-12] MEDS: METOPROLOL TARTRATE 25 MG TAB PO SCH ×2 (09:00→16:22)
[2018-08-12] MEDS ORDERED: ASPIRIN 81 MG ENTERIC COATED PO SCH (09:00)
[2018-08-12] MEDS: LEVOFLOXACIN 500MG/D5W 100ML 100 ML IV SCH (10:31)
--- NOTE | 2018-08-12 10:31 | NUR ---
patient alert and in no distress. leaving unit via wheelchair to stress test
[2018-08-12] MEDS: ACETAMINOPHEN 325 MG TAB PO PRN (13:15)
--- NOTE | 2018-08-12 16:36 | NUR ---
3 DAY OBS CM CALLED AND SPOKE WITH DR MARIANO HASN'T HAD A CHANCE TO REVIEW STRESS BUT WILL AND WILL CALL NURSE WITH RESULTS DC ORDER ALREADY WRITTEN BY DR OCONNOR IF STRESS NEGATIVE
--- NOTE | 2018-08-12 20:13 | Progress Note ---
DATE: 08/12/2018 Cardiology Progress Note SUBJECTIVE: The patient reports right-sided pain. No typical angina or shortness of breath. OBJECTIVE: VITAL SIGNS: Temperature is 97.7, heart rate is 60, respirations are 18, oxygen saturation is 95% on room air, and blood pressure is 123/89. GENERAL: She is well appearing, well built, no apparent distress. NECK: No JVD. CARDIOVASCULAR: Regular rate and rhythm. No murmurs. LUNGS: Clear to auscultation. ABDOMEN: Soft, nontender, and nondistended. EXTREMITIES: No edema. VASCULAR: 2+ pulses. CARDIOVASCULAR MEDICATIONS: Reviewed. LABORATORY DATA: Reviewed. IMAGING DATA: Echocardiogram showed normal left ventricular systolic function with an estimated ejection fraction of 55% to 60%. Stress testing with myocardial perfusion imaging revealed no evidence of ischemia with normal ejection fraction. IMPRESSION: 1. Atypical chest pain. 2. Coronary artery disease, status post percutaneous coronary intervention in the past. 3. History of deep venous thrombosis with pulmonary embolism. 4. Bipolar depression. 5. Right breast pain. RECOMMENDATIONS: The patient ruled out for acute myocardial infarction. Her echocardiogram and stress test were both within normal limits. Continue current cardiovascular medications. No further cardiac testing is required at this point in time. Timo Sanabria DO BM/MODL /[id number]
--- NOTE | 2018-08-29 12:16 | Myoview Stress Test ---
DATE OF STUDY: 08/10/2018 19:18:00 Stress Test - Treadmill ONLY PROCEDURE TITLE: Rest/stress single isotope SPECT imaging with pharmacologic stress and gated SPECT imaging. INDICATION: Pharmacologic stress testing was performed with regadenoson per protocol. The heart rate was 67 beats per minute at rest and increased to 90 beats per minute during the regadenoson infusion. The rest blood pressure was 110/58 mmHg and decreased to 92/55 mmHg, which is a normal response. The resting electrocardiogram demonstrated normal sinus rhythm. There were no ST-segment changes suggestive of myocardial ischemia. Myocardial perfusion imaging was performed at rest following the injection of 10.8 mCi of tetrofosmin. At peak pharmacologic effect, the patient was injected with 33 mCi of tetrofosmin. Gated post-stress tomographic imaging was performed. FINDINGS: The overall quality of study is fair. Left ventricular cavity is noted to be normal size on the rest and stress studies. Gated SPECT images demonstrate homogeneous tracer distribution throughout the myocardium. Gated SPECT imaging reveals normal myocardial thickening and wall motion. The left ventricular ejection fraction was calculated to be greater than 70%. IMPRESSION: Myocardial perfusion imaging is normal. Overall left ventricular systolic function was normal without regional wall motion abnormalities. Ligia Gustafson MD ABS/MODL /[id number]
== END 2018-08-12 19:45 | disposition home or self-care (01) ==
LOC: ER 11:12 → ERHOLD 16:27 → IMCU 19:28
PROVIDERS: ADMIT Internal Medicine; ATTEND Internal Medicine
DX: R07.89 Other chest pain (principal); I10 Essential (primary) hypertension; E11.9 Type 2 diabetes mellitus without complications; I25.10 Atherosclerotic heart disease of native coronary artery without angina pectoris; E78.5 Hyperlipidemia, unspecified; J44.9 Chronic obstructive pulmonary disease, unspecified; Z87.442 Personal history of urinary calculi; Z87.440 Personal history of urinary (tract) infections; Z88.1 Allergy status to other antibiotic agents; Z83.3 Family history of diabetes mellitus; Z82.49 Family history of ischemic heart disease and other diseases of the circulatory system; Z95.5 Presence of coronary angioplasty implant and graft; F31.9 Bipolar disorder, unspecified; Z86.718 Personal history of other venous thrombosis and embolism; Z86.711 Personal history of pulmonary embolism; N64.4 Mastodynia; Z85.038 Personal history of other malignant neoplasm of large intestine; Z79.4 Long term (current) use of insulin; Z79.01 Long term (current) use of anticoagulants
CPT/HCPCS: 36415 ×4; 36569; 71045 ×2; 71046; 71260; 78452; 80048; 80053; 80061; 81001; 82378; 82550 ×2; 82553 ×2; 82948 ×3; 83735; 83880; 84484 ×2; 85025 ×2; 85379; 85610 ×2; 85730 ×2; 87040; 87086; 93005 ×2; 93017; 93306; 96372; 99284; A9502; G0378 ×4; J1650 ×4; J1815; J1956 ×2; J2270 ×4; J2405 ×4; J7030 ×4; Q9967; S0164 ×2

== ENCOUNTER 2018-11-14 16:46 | Emergency (ER) | payer MEDICARE ==
[~2018-11-14] VITALS: Ht 312.4 cm; Wt 83.5 kg
--- OUTSIDE RECORDS SUMMARY | 2018-11-14 16:50 | XMS REPORT | Clinical Summary ---
Author Author [facility] Organization [facility] Address Unknown Phone Unavailable Care Team Providers Care Weave Room Supervisor Name Role Phone Rayray Anderson PCP Allergies [...] Overview: Added automatically from request for surgery [id number] Hematemesis, presence of nausea not specified 05/29/2018 Overview: Added automatically from request for surgery [id number] Coronary artery disease Diabetes mellitus Hyperlipidemia Hypertension [...] unspecified vessel or lesion type, unspecified whether [place] or transplanted heart; Hyperlipidemia, unspecified hyperlipidemia type; Hematemesis, presence of nausea not specified; Esophagitis 05/29/2018 [facility] General Internal Medicine - Encounter 06/03/2018 after 11/13/2017 Social History Date Tobacco Use Types Packs/Day [...] ms QTC Calculatio n(Bazett) 428 ms P Eliot 22 degrees R Eliot -6 degrees T Eliot 42 degrees Sinus bradycardi a Nonspecifi c [...] CULTURE STAT 05/29/2018 10:13 PM CDT after 11/13/2017 Results * RHYTHM STRIP - SCAN (06/25/2018 11:22 AM CDT) Only the most recent of 2 results within the time period is included. Narrative Performed At * EKG-SCANNED (06/05/2018 11:03 AM CDT) Narrative Performed At * POC-Glucose meter (06/03/2018 5:14 PM CDT) Only the most recent of 17 results within the time period is included. POC-Glucose Meter 97Comment: TESTED AT [facility] 70 - 110 mg/dL [facility] [id number] [facility] [id number] Specimen Blood Performing Organization Address City/State/Zipcode Phone Number [facility] [address] [place] [address] [facility] * REPORT OF PROCEDURE - ENDOSCOPY URL (06/03/2018 3:48 PM CDT) Narrative Performed At * Tissue Exam (06/03/2018 3:33 PM CDT) Case Report Surgical Pathology [facility] Report Case: [id number] Authorizing Provider:Amrik Dale MDCollectmoraima d: 06/03/2018 1533 Ordering Location: [facility] ENDOSCOPY SERVICESReceived: 06/04/2018 0903 Pathologist: Nanci Nassar MD Specimens: A) - Antrum, bx B) - Stomach,Body, bx C) - Esophagus, irregular z line bx DIAGNOSIS A. STOMACH, ANTRUM, BIOPSY [facility] - NON-SPECIFIC REACTIVE CHANGES - NEGATIVE [...] OR DYSPLASIA Signing Pathologist Direct Phone Line: [phone] CPT Code(s) 43032 X 3, 52725 X 2 [facility] CLINICAL HISTORY Hematemesis. Procedure upper [facility] endoscopy SPECIMEN SOURCE A. Antrum biopsy. B. Stomach [facility] body biopsy. C. Irregular Z-line biopsy GROSS DESCRIPTION The instrument, containers, [facility] paperwork, and cassettes all read [id number]. Received in formalin labeled with the patient's [...] JF/ew SPECIAL STUDIES The interpretation of this [facility] case included the use of immunohistochemistry or special stains. Immunohistochemistry technical testing was performed at [facility], Pathology Laboratory where it was [...] Esophageal structure (body structure) Performing Organization Address City/[facility]/Zipcode Phone Number [facility] [address] [place] [address] * ECG 12 lead (06/03/2018 1:38 PM CDT) Specimen Narrative Performed At Ventricular Rate 58 BPM GE MUSE Atrial Rate 58 BPM P-R Interval 168 ms QRS Duration 92 ms Q-T Interval 436 ms QTC Calculation(Bazett) 428 ms P Eliot 22 degrees R Eliot -6 degrees T Eliot 42 degrees Sinus bradycardia Nonspecific T wave abnormality Abnormal ECG When compared with ECG of 03-FEB-2004 22:35, PREVIOUS ECG IS PRESENT Procedure Note Interface, External Ris In - 06/04/2018 6:22 AM CDT Ventricular Rate 58 BPM Atrial Rate 58 BPM P-R Interval 168 ms QRS Duration 92 ms Q-T Interval 436 ms QTC Calculation(Bazett) 428 ms P Eliot 22 degrees R Eliot -6 degrees T Eliot 42 degrees Sinus bradycardia Nonspecific T wave abnormality Abnormal ECG When compared with ECG of 03-FEB-2004 22:35, PREVIOUS ECG IS PRESENT Performing Organization Address City/[facility] Phone Number [facility] * CBC with platelet count + automated diff (06/03/2018 3:25 AM CDT) Only the most recent of 5 results within the time period is included. WBC 6.4 4.0 - 10.0 K/L [facility] RBC 3.73 (L) 4.00 - 5.00 M/L [facility] Hemoglobin 11.9 (L) 12.0 - 15.5 GM/DL [facility] Hematocrit 35.6 (L) 36.0 - 46.0 % [facility] MCV 95.4 82.0 - 99.0 fL [facility] MCH 31.9 27.0 - 33.0 pg [facility] MCHC 33.4 32.0 - 36.0 GM/DL [facility] RDW 13.2 12.0 - 15.0 % [facility] Platelets 229 150 - 430 K/CU MM [facility] MPV 10.0Comment: MPV-Approximately 6.0 - 11.5 fL [facility] 20% positive bias due to method change. nRBC 0 0 - 0 /100 WBC [facility] % Neutros 51 % [facility] % Lymphs 34 % [facility] % Monos 8 % [facility] % Eos 7 % [facility] % Baso 1 % [facility] # Neutros 3.29 1.80 - 8.00 K/L [facility] # Lymphs 2.15 1.48 - 4.50 K/L [facility] # Monos 0.52 0.00 - 1.30 K/L [facility] # Eos 0.42 0.00 - 0.50 K/L [facility] # Baso 0.03 0.00 - 0.20 K/L [facility] Immature 0 0 - 0 % [facility] Granulocytes-Relative Specimen Blood Performing Organization Address [facility]/Zipcode Phone Number [facility] [address] [place] [address] * Prothrombin time/INR (06/03/2018 3:25 AM CDT) Only the most recent of 4 results within the time period is included. Protime 18.3 (H) 11.8 - 14.4 seconds [facility] INR 1.5 1.2 - 1.5 [facility] Specimen Blood Narrative Performed At RECOMMENDED COUMADIN/WARFARIN INR THERAPY RANGES [facility] STANDARD DOSE: 2.0 - 3.0 Includes: PROPHYLAXIS for venous thrombosis, systemic embolization; TREATMENT for venous thrombosis and/or pulmonary embolus. HIGH RISK: Target INR is 2.5-3.5 for patients with mechanical heart valves. Performing Organization Address City/[facility] Phone Number [facility] [address] [place] [address] * Basic Metabolic Panel (06/02/2018 5:27 AM CDT) Only the most recent of 4 results within the time period is included. Sodium 138 135 - 148 meq/L [facility] Potassium 3.8 3.5 - 5.5 meq/L [facility] Chloride 105 98 - 106 meq/L [facility] CO2 24 20 - 31 meq/L [facility] BUN 5 (L) 10 - 26 mg/dL [facility] Creatinine 0.68 0.50 - 1.20 mg/dL [facility] Glucose 93 70 - 110 mg/dL [facility] Calcium 8.5 8.5 - 10.5 mg/dL [facility] EGFR Comment: INSUFFICIENT CLINICAL mL/min/1.73 sq m [facility] DATA TO CALCULATE ESTIMATED GFR. Specimen Blood Performing Organization Address [facility] Phone Number [facility] [address] [place] [address] * PT/aPTT (05/30/2018 12:12 AM CDT) Protime 37.8 (H) 11.8 - 14.4 seconds [facility] INR 4.0 (H) 1.2 - 1.5 [facility] PTT 56.5 (H) 23.2 - 36.1 seconds [facility] Specimen Blood Narrative Performed At RECOMMENDED COUMADIN/WARFARIN INR THERAPY RANGES [facility] STANDARD DOSE: 2.0 - 3.0 Includes: PROPHYLAXIS for venous thrombosis, systemic embolization; TREATMENT for venous thrombosis and/or pulmonary embolus. HIGH RISK: Target INR is 2.5-3.5 for patients with mechanical heart valves. Performing Organization Address [facility] Number [address] [address] * Lactic acid, venous (05/30/2018 12:12 AM CDT) Lactate, Venous 0.8Comment: Specimen slightly 0.5 - 2.2 mmol/L [facility] hemolyzed Specimen Blood Performing Organization Address [facility] Number [place] [id number] [place] [address] * Lipase (05/30/2018 12:12 AM CDT) Lipase 22 8 - 78 U/L [facility] Specimen Blood Performing Organization Address [facility] Number [facility] [address] [place] [address] * Hepatic function panel (05/30/2018 12:12 AM CDT) Protein, Total 7.2 6.0 - 8.5 gm/dL [facility] Albumin 3.8 3.5 - 5.0 g/dL [facility] Total Bilirubin 0.2 0.1 - 1.3 mg/dL [facility] Bilirubin, Direct 0.1 0.0 - 0.5 mg/dL [facility] Alkaline Phosphatase 81 30 - 115 U/L [facility] AST 16 5 - 40 U/L [facility] ALT 11 6 - 50 U/L [facility] Specimen Blood Performing Organization Address City/State/Zipcode Phone Number [facility] [address] [place] [address] * CT abdomen & pelvis - renal stone evaluation without iv contrast (05/29/2018 10:28 PM CDT) Specimen Narrative Performed At FINAL REPORT [facility] CT abdomen and pelvis without intravenous contrast. [...] MD Report Verified Date/Time:05/29/2018 22:39:39 Reading Location: [facility] B1 [id number] [facility] Consult Reading Room Procedure Note Interface, External [...] Report Verified Date/Time: 05/29/2018 22:39:39 Reading Location: [facility] [id number] [facility] Consult Reading Room Performing Organization Address City/State/Zipcode Phone Number [facility]IS * Urinalysis w/Microscopic + Reflex to Culture (05/29/2018 10:13 PM CDT) Color, UA Yellow [facility] Clarity, UA Cloudy [facility] Specific [place], UA 1.017 1.001 - 1.035 [facility] pH, UA 6.0 5.0 - 8.0 [facility] Protein, UA Negative Negative [facility] Glucose, UA Negative Negative [facility] Ketones, UA Negative Negative [facility] Bilirubin, UA Negative Negative [facility] Blood, UA Large (A) Negative [facility] Nitrite, UA Negative Negative [facility] Leukocytes, UA Large (A) Negative [facility] Urobilinogen, UA <1.0 0.2 - 1.0 mg/dL [facility] RBC, UA 583 /HPF [facility] WBC, UA 15 /HPF [facility] Bacteria, UA Occasional [facility] Mucus Rare [facility] Squam Epithel, UA 6 /HPF [facility] Specimen Source [facility] Specimen Urine Performing Organization Address City/[facility]/Zipcode Phone Number [facility] [address] [place] [address] * Urine culture (05/29/2018 10:13 PM CDT) Result >100,000 col/mL skin roney [facility] Specimen Urine Performing Organization Address City/[facility]/Zipcode Phone Number [facility] [address] [place] [address] after 11/13/2017 Insurance Payer Benefit Subscriber ID Type Phone Address Plan / Group [employer] C[employer]NA xxxxxxxx [facility] [employer] [place]racted [place] [id number] Advance Directives For more information, please contact: [facility] [address] [place] [address] Date Inactivated Comments Code Status Date Activated 06/03/2018 11:35 PM Full Code 05/30/2018 2:52 AM This code status was determined by: Patient
--- OUTSIDE RECORDS SUMMARY | 2018-11-14 16:51 | XMS REPORT | Continuity of Care Document ---
Author Author [employer] Organization [employer] Address Unknown Phone Unavailable Care Team Providers Care Seasonal Warehouse Associate Name Role Phone [facility] [employer] Unavailable Unavailable Problems Problem Status Onset Date Classification Date Reported Comments Source CHEST PAIN IN ADULT,ARM PAIN,RT,SOB-SHOR Active 07/08/2018 [facility] VOMITING / ARM PAIN Active 07/08/2018 [facility] NOSEBLEED/COUGHING UP BLOOD Active 01/10/2018 [facility] COUMADIN TOXICITY Active 01/10/2018 [facility] Urinary tract infection, site not specified 05/29/2016 06/01/2016 [facility] ABD PAIN Active 05/28/2016 [facility] Seizure Active 08/19/2015 Problem 08/13/2018 [facility] Chest pain Active 02/13/2015 Problem 08/13/2018 [facility] Cerebral infarction Active 09/10/2014 Problem 08/13/2018 [facility] SENT BY Active 07/14/2011 [facility] Anxiety Active Problem 07/17/2011 [facility] Back pain Active Problem 07/17/2011 [facility] Chest pain Active Problem 07/17/2011 [facility] Deep vein thrombosis Active Problem 07/17/2011 [facility] Depression Active Problem 07/17/2011 [facility] Dysmenorrhea Active Problem 07/17/2011 [facility] Fracture of knee-cap Active Problem 07/17/2011 [facility] Hay fever Active Problem 07/17/2011 [facility] Incontinence Active Problem 07/17/2011 [facility] Migraine Active Problem 07/17/2011 [facility] Nausea and vomiting Active Problem 07/17/2011 [facility] Neck pain Active Problem 07/17/2011 [facility] Osteoarthritis Active Problem 07/17/2011 [facility] Panic disorder Active Problem 07/17/2011 [facility] Pulmonary embolism Active Problem 07/17/2011 [facility] Seizure Active Problem 07/17/2011 [facility] Shoulder pain Active Problem 07/17/2011 [facility] Stroke Active Problem 07/17/2011 [facility] Suicide attempt Active Problem 07/17/2011 [facility] UTI - Urinary tract infection Active Problem 07/17/2011 [facility] Anxiety (finding) Active Problem 07/11/2018 [facility] Backache (finding) Active Problem 07/11/2018 [facility] Chest pain (finding) Active Problem 07/11/2018 [facility] Deep venous thrombosis (disorder) Active Problem 07/11/2018 [facility] Depressive disorder (disorder) Active Problem 07/11/2018 [facility] Diabetes mellitus (disorder) Active Problem 07/11/2018 [facility] Dysmenorrhea (disorder) Active Problem 07/11/2018 [facility] Epilepsy (disorder) Active Problem 07/11/2018 [facility] Fracture of patella (disorder) Active Problem 07/11/2018 [facility] Allergic rhinitis due to pollen (disorder) Active Problem 07/11/2018 [facility] Hypertensive disorder, systemic arterial (disorder) Active Problem 07/11/2018 [facility] Incontinence (finding) Active Problem 07/11/2018 [facility] Malignant tumor of colon (disorder) Active Problem 07/11/2018 [facility] Migraine (disorder) Active Problem 07/11/2018 [facility] Nausea and vomiting (disorder) Active Problem 07/11/2018 [facility] Neck pain (finding) Active Problem 07/11/2018 [facility] Osteoarthritis (disorder) Active Problem 07/11/2018 [facility] Panic disorder (disorder) Active Problem 07/11/2018 [facility] Pulmonary embolism (disorder) Active Problem 07/11/2018 [facility] Seizure (finding) Active Problem 07/11/2018 [facility] Shoulder pain (finding) Active Problem 07/11/2018 [facility] Sleep apnea (finding) Active Problem 07/11/2018 [facility] Cerebrovascular accident (disorder) Active Problem 07/11/2018 [facility] Suicide attempt (disorder) Active Problem 07/11/2018 [facility] Urinary tract infectious disease (disorder) Active Problem 07/11/2018 [facility] Coronary arteriosclerosis (disorder) Active Problem 07/11/2018 [facility] Abdominal pain Active Problem 08/13/2018 [facility] CHEST PAIN, UNSPECIFIED Active [facility] PAIN IN RIGHT ARM Active [facility] SHORTNESS OF BREATH Active [facility] POISONING BY ANTICOAGULANTS, ACCIDENTAL, Active [facility] Medications Medication Details Route Status Patient Instructions Ordering Provider Order Date Source Dilantin 300 mg, 3 cap, Route: PO, Drug form: ERCAP, Bedtime, Dosing Weight 72.727, kg, Start date: 07/09/18 21:00:00 CDT, Duration: 30 day, Stop date: 08/07/18 21:00:00 CDTNotes: (Same as: Dilantin) Do not open, crush, or chew. Inactive 07/10/2018 [facility] Phenobarbital 90 mg, 3 tab, Route: PO, Drug form: TAB, Bedtime, Dosing Weight 72.727, kg, Start date: 07/09/18 21:00:00 CDT, Duration: 30 day, Stop date: 08/07/18 21:00:00 CDTNotes: (Same as: Lexie Simon Sol foton) Inactive 07/10/2018 [facility] Lipitor 20 mg, 2 tab, Route: PO, Drug form: TAB, Bedtime, Dosing Weight 72.727, kg, Start date: 07/09/18 21:00:00 CDT, Duration: 30 day, Stop date: 08/07/18 21:00:00 CDTNotes: (Same As: Lipitor) Inactive 07/10/2018 [facility] Acetaminophen 300 MG / Codeine Phosphate 30 MG Oral Tablet [Tylenol with Codeine #3] 1 tab, PO, Q6H, PRN Pain, X 7 day, # 28 tab, 0 Refill(s) Active 07/09/2018 [facility] Acetaminophen 300 MG / Codeine Phosphate 30 MG Oral Tablet [Tylenol with Codeine #3] 1 tab, PO, Q6H, PRN Pain, X 7 day, # 28 tab, 0 Refill(s), given to patient Inactive 07/09/2018 [facility] Warfarin 5 mg, 1 tab, Route: PO, Drug form: TAB, Daily, Dosing Weight 72.727, kg, Start date: 07/09/18 17:00:00 CDT, Duration: 30 day, Stop date: 08/07/18 17:00:00 CDTNotes: Nurse to ensure documentation of patient education per anticoagulation policy. Avoid large intake of vitamin-K containing foods diet. WASTE: F/P - P Waste Black; E - P Waste Black (Same As: Coumadin) Inactive 07/09/2018 [facility] atorvastatin 10 mg oral tablet 20 mg=2 tab, PO, Bedtime, 0 Refill(s) Active 07/09/2018 [facility] Lyrica 75 mg, 1 cap, Route: PO, Drug form: CAP, Daily, Dosing Weight 72.727, kg, Start date: 07/09/18 9:00:00 CDT, Duration: 30 day, Stop date: 08/07/18 9:00:00 CDTNotes: (Same as: Lyrica) Inactive 07/09/2018 [facility] Dilantin 100 mg, 1 cap, Route: PO, Drug form: ERCAP, QAM, Dosing Weight 72.727, kg, Start date: 07/09/18 9:00:00 CDT, Duration: 30 day, Stop date: 08/07/18 9:00:00 CDTNotes: (Same as: Dilantin) Do not open, crush, or chew. Inactive 07/09/2018 [facility] Omeprazole 20 mg, Route: PO, Daily, Dosing Weight 72.727, kg, Start date: 07/09/18 9:00:00 CDT, Duration: 30 day, Stop date: 08/07/18 9:00:00 CDT Inactive 07/09/2018 [facility] Citalopram 20 mg, 2 tab, Route: PO, Drug form: TAB, Daily, Dosing Weight 72.727, kg, Start date: 07/09/18 9:00:00 CDT, Duration: 30 day, Stop date: 08/07/18 9:00:00 CDT Inactive 07/09/2018 [facility] Saline Flush 0.9% 10 ml, Route: IVP, Drug Form: INJ, Dosing Weight 72.727, kg, Q12H, Start date: 07/09/18 9:00:00 CDT, Duration: 30 day, Stop date: 08/07/18 21:00:00 CDTNotes: (Same as: BD Posiflush) Inactive 07/09/2018 [facility] Protonix 40 mg, 1 tab, Route: PO, Drug form: ECTAB, Daily, Start date: 07/09/18 9:00:00 CDT, Duration: 30 day, Stop date: 08/07/18 9:00:00 CDTNotes: Tablet should not be chewed or crushed. (Same as: Protonix) Inactive 07/09/2018 [facility] Phenobarbital 30 mg, 1 tab, Route: PO, Drug form: TAB, Breakfast, Dosing Weight 72.727, kg, Start date: 07/09/18 8:00:00 CDT, Duration: 30 day, Stop date: 08/07/18 8:00:00 CDTNotes: (Same as: Barbita, Lexie, Sarah foton) Inactive 07/09/2018 [facility] Morphine 4 mg, 1 mL, Route: IVP, Drug form: SOLN, Q4H, Dosing Weight 72.727, kg, PRN Pain Score 7-10, Start date: 07/09/18 2:11:00 CDT, Duration: 30 day, Stop date: 08/08/18 2:10:00 CDTNotes: (Same as:MORPhine Sulfate) Inactive 07/09/2018 [facility] Ketorolac 15 mg, 1 mL, Route: IVP, Drug form: INJ, Q6H, Dosing Weight 72.727, kg, PRN Pain Score 4-6, Start date: 07/09/18 0:03:00 CDT, Duration: 4 day, Stop date: 07/13/18 0:02:00 CDTNotes: (Same as:Toradol) IV bolus must be given >15 seconds. Give IM administration slowly and deeply into the muscle. Not for use > 4 days. Inactive 07/09/2018 [facility] Saline Flush 0.9% 10 ml, Route: IVP, Drug Form: INJ, Dosing Weight 72.727, kg, PRN, PRN Line Flush, Start date: 07/09/18 0:02:00 CDT, Duration: 30 day, Stop date: 08/08/18 0:01:00 CDTNotes: (Same as: BD Posiflush) Inactive 07/09/2018 [facility] Nitroglycerin 0.4 mg, 1 tab, Route: SL, Drug form: TAB, Q5Min, Dosing Weight 72.727, kg, PRN Chest Pain, Start date: 07/09/18 0:02:00 CDT, Duration: 3 doses or times, Stop date: Limited # of timesNotes: (Same as:N itroquick, Nitrostat) "Do Not Crush" Sublingual tablet Inactive 07/09/2018 [facility] pneumococcal capsular polysaccharide type 1 vaccine / pneumococcal capsular polysaccharide type 10A vaccine / pneumococcal capsular polysaccharide type 11A vaccine / pneumococcal capsular polysaccharide type 12F vaccine / pneumococcal capsular polysacchar 0.5 mL, Route: IM, Drug Form: INJ, ONCALL, Start date: 07/08/18 23:16:45 CDT, Stop date: 08/07/18 23:11:45 CDTNotes: (Same as: Pneumovax 23) Refrigerate No Longer Active 07/09/2018 [facility] Ketorolac 15 mg, Route: IVP, Drug form: INJ, ONCE, Dosing Weight 72.727, kg, Priority: STAT, Start date: 07/08/18 21:35:00 CDT, Stop date: 07/08/18 21:35:00 CDT Inactive 07/09/2018 [facility] Ondansetron Hcl (Zofran*) 4 Mg Tablet Every 4 Hours as needed for Nausea/Vomiting Active [facility] 04/01/2018 [facility] Pantoprazole Sodium (Protonix) 40 Mg Tablet.dr Every 12 Hours Active [facility] 04/01/2018 [facility] Pantoprazole Sodium (Protonix) 40 Mg Tablet.dr, 40 Mg Oral Every 12 Hours Active [facility] 04/01/2018 [facility] Oxycodone Hcl (Oxycontin) 30 Mg Tab.er.12h, 30 Mg Oral Four Times Daily Active 03/28/2018 [facility] Rivaroxaban (Xarelto) 10 Mg Tablet, 10 Mg Oral Daily Active 03/28/2018 [facility] tramadol hydrochloride 50 MG Oral Tablet 50 mg=1 tab, PO, Q12H, PRN Pain, X 10 day, # 20 tab, 0 Refill(s) Active 05/29/2016 [facility] tramadol hydrochloride 50 MG Oral Tablet 50 mg, Route: PO, Drug form: TAB, ONCE, Dosing Weight 63.636, kg, Priority: STAT, Start date: 05/29/16 1:57:00 CDT, Stop date: 05/29/16 1:57:00 CDT Inactive 05/29/2016 [facility] ciprofloxacin 500 mg oral tablet 500 mg=1 tab, PO, Q12H, X 10 day, # 20 tab, 0 Refill(s) Active 05/29/2016 [facility] Diphenhydramine 25 mg, Route: IVP, ONCE, Dosing Weight 63.636, kg, Priority: STAT, Start date: 05/28/16 23:59:00 CDT, Stop date: 05/28/16 23:59:00 CDT No Longer Active 05/29/2016 [facility] Prednisone 60 mg, Route: PO, Drug form: TAB, ONCE, Dosing Weight 63.636, kg, Priority: STAT, Start date: 05/28/16 23:59:00 CDT, Stop date: 05/28/16 23:59:00 CDT No Longer Active 05/29/2016 [facility] Ciprofloxacin 400 mg, Route: IVPB, ONCE, Dosing Weight 63.636, kg, Priority: STAT, Start date: 05/28/16 23:59:00 CDT, Stop date: 05/28/16 23:59:00 CDT No Longer Active 05/29/2016 [facility] Ceftriaxone 1 gm, Route: IVPB, Drug form: PDR/INJ, ONCE, Dosing Weight 63.636, kg, Priority: STAT, Start date: 05/28/16 23:04:00 CDT, Stop date: 05/28/16 23:04:00 CDT Inactive 05/29/2016 [facility] Ondansetron 4 mg, Route: IVP, Drug form: INJ, ONCE, Dosing Weight 63.636, kg, Priority: STAT, Start date: 05/28/16 22:22:00 CDT, Stop date: 05/28/16 22:22:00 CDT Inactive 05/29/2016 [facility] Morphine 4 mg, Route: IVP, ONCE, Dosing Weight 63.636, kg, Priority: STAT, Start date: 05/28/16 22:22:00 CDT, Stop date: 05/28/16 22:22:00 CDT Inactive 05/29/2016 [facility] Ondansetron 4 mg, Route: IVP, Drug form: INJ, ONCE, Dosing Weight 63.636, kg, Priority: STAT, Start date: 05/28/16 20:49:00 CDT, Stop date: 05/28/16 20:49:00 CDT Inactive 05/29/2016 [facility] Morphine 4 mg, Route: IVP, ONCE, Dosing Weight 63.636, kg, Priority: STAT, Start date: 05/28/16 20:49:00 CDT, Stop date: 05/28/16 20:49:00 CDT Inactive 05/29/2016 [facility] Saline Flush 0.9% 10 mL, Route: IVP, Drug Form: INJ, Dosing Weight 72.727, kg, PRN, PRN Line Flush, Start date: 05/28/16 17:54:00 CDT, Duration: 30 day, Stop date: 06/27/16 17:53:00 CDTNotes: (Same as: BD Posiflush) No Longer Active 05/28/2016 [facility] Lovenox 40 mg/0.4 mL subcutaneous solution 40 mg, SUB-Q, Daily, 5 mL, Substitution Allowed SUB-Q Active [facility] 07/15/2011 [facility] Lovenox 80 mg, Route: SUB-Q, ONCE, Start date: 07/15/11 0:07:00, Stop date: 07/15/11 0:07:00 SUB-Q No Longer Active [facility] 07/15/2011 [facility] hydromorphone 0.5 mg, 0.25 mL, Route: IVP, Drug form: INJ, ONCE, Priority: STAT, Start date: 07/15/11 0:02:00, Stop date: 07/15/11 0:02:00 IVP No Longer Active [facility] 07/15/2011 [facility] Coumadin 10 mg oral tablet 10 mg, 1 tab, PO, Daily, 30 tab, Substitution Allowed, TAB PO Active [facility] 07/15/2011 [facility] Lovenox 80 mg/0.8 mL subcutaneous solution 80 mg, 0.8 ml, SUB-Q, Daily, 4 mL, Substitution Allowed, SOLN SUB-Q Active [facility] 07/15/2011 [facility] Lovenox 80 mg, 0.8 mL, Route: IV, Drug form: INJ, ONCE, Start date: 07/14/11 23:02:00, Stop date: 07/14/11 23:02:00 IV No Longer Active [facility] 07/15/2011 [facility] ondansetron 4 mg, 2 mL, Route: IVP, Drug form: INJ, ONCE, Priority: STAT, Start date: 07/14/11 20:30:00, Stop date: 07/14/11 20:30:00 IVP No Longer Active [facility] 07/15/2011 [facility] [place] 5/325 oral tablet 2 tab, Route: PO, Drug Form: TAB, ONCE, Start date: 07/14/11 19:23:00, Stop date: 07/14/11 19:23:00 PO No Longer Active [facility] 07/15/2011 [facility] Benadryl Substitution Allowed Active 07/14/2011 [facility] Unknown Home Medication Substitution Allowed Active 07/14/2011 [facility] Dilantin Substitution Allowed Active 07/14/2011 [facility] Zanaflex Substitution Allowed Active 07/14/2011 [facility] Unknown Home Medication Substitution Allowed Active 07/14/2011 [facility] Lyrica Substitution Allowed Active 07/14/2011 [facility] Unknown Home Medication Substitution Allowed Active 07/14/2011 [facility] ondansetron 4 mg, Route: IVP, Drug form: INJ, ONCE, Priority: STAT, Start date: 07/14/11 18:16:00, Stop date: 07/14/11 18:16:00 IVP No Longer Active [place] 07/14/2011 [facility] aspirin 325 mg tablet 325 mg, 1 tab, Route: PO, Drug form: TAB, ONCE, Priority: STAT, Start date: 07/14/11 17:49:00, Stop date: 07/14/11 17:49:00 PO No Longer Active [place] 07/14/2011 [facility] hydromorphone 1 mg, 0.5 mL, Route: IVP, Drug form: INJ, ONCE, Priority: STAT, Start date: 07/14/11 17:28:00, Stop date: 07/14/11 17:28:00 IVP No Longer Active [place] 07/14/2011 [facility] influenza virus vaccine, inactivated 0.5 mL, Route: IM, Drug Form: SUSP, Start date: 05/31/11 9:00:00, Stop date: 05/31/11 9:00:00 IM No Longer Active [facility] 05/31/2011 [facility] Hydrocodone Bit/Acetaminophen (Hydrocodon-Acetaminophn 10-325) 1 Each Tablet Every 4 Hours as needed for Pain Active [facility] Insulin Glargine (Lantus) 100 Units/Ml Ml Use As Directed Active [place] [place] PRN DAILY/HS [facility] Magnesium Oxide 400 Mg Tablet Daily Active [facility] Pantoprazole Sodium (Protonix) 40 Mg Tablet.dr Daily Active [facility] Paroxetine Hcl 20 Mg Tablet Daily Active [facility] Phenazopyridine Hcl 100 Mg Tablet Before Meals Active [facility] Phenobarbital 30 Mg Tablet Am Active [facility] Phenobarbital 60 Mg Tablet Pm Active [facility] Phenytoin Sodium Extended (Dilantin) 100 Mg Capsule Daily Active [facility] Sertraline Hcl (Zoloft) 50 Mg Tablet Daily Active [facility] Warfarin Sodium (Coumadin) 10 Mg Tablet Daily Active [facility] Zolpidem Tartrate (Ambien) 10 Mg Tablet Bedtime as needed for Insomnia Active [facility] Allergies, Adverse Reactions, Alerts Substance Category Reaction Severity Reaction type Status Date Reported Comments Source Prochlorperazine BLACK OUTS Mild Allergy to Substance Active 08/18/2015 [facility] UNKNOWN ANTIBIOTC "PROB ROCEPHIN" Unknown Allergy to Substance Active 12/28/2017 [facility] prochlorperane Assertion Drug allergy [facility] Immunizations Immunization Date Given Site Status Last Updated Comments Source influenza virus vaccine, inactivated 11/29/2011 Right deltoid completed [facility] influenza virus vaccine, inactivated 05/31/2011 Not Given [facility] Results Order Name Results Value Reference Range Date Interpretation Comments Source Capillary blood glucose measurement by glucometer (mass/volume) 109 70 - 120 08/12/2018 [facility] Blood culture NO GROWTH AFTER 24 HOURS 08/10/2018 [facility] Blood leukocytes automated count (number/volume) 6.68 4.8 - 10.8 08/10/2018 [facility] Blood erythrocytes automated count (number/volume) 3.77 3.6 - 5.1 08/10/2018 [facility] Blood hemoglobin measurement (moles/volume) 12.3 12.0 - 16.0 08/10/2018 [facility] Automated blood hematocrit (volume fraction) 36.2 34.2 - 44.1 08/10/2018 [facility] Automated erythrocyte mean corpuscular volume 96.0 81 - 99 08/10/2018 [facility] Automated erythrocyte mean corpuscular hemoglobin (mass per erythrocyte) 32.6 28 - 32 08/10/2018 [facility] Automated erythrocyte mean corpuscular hemoglobin concentration measurement (mass/volume) 34.0 31 - 35 08/10/2018 [facility] RDW BldCo-Rto 12.7 11.7 - 14.4 08/10/2018 [facility] Automated blood platelet count (count/volume) 228 140 - 360 08/10/2018 [facility] Automated blood segmented neutrophil count as percentage of total leukocytes 42.5 38.7 - 80.0 08/10/2018 [facility] Automated blood lymphocyte count as percentage ot total leukocytes 42.7 18.0 - 39.1 08/10/2018 [facility] Automated blood monocyte count as percentage of total leukocytes 7.3 4.4 - 11.3 08/10/2018 [facility] Automated blood eosinophil count as percentage of total leukocytes 6.6 0.0 - 6.0 08/10/2018 [facility] Automated blood basophil count as percentage of total leukocytes 0.6 0.0 - 1.0 08/10/2018 [facility] IM GRANULOCYTES % 0.3 0.0 - 1.0 08/10/2018 [facility] Automated blood neutrophil count 2.8 2.1 - 6.9 08/10/2018 [facility] Blood lymphocytes count (number/volume) 2.9 1.0 - 3.2 08/10/2018 [facility] Blood monocytes automated count (number/volume) 0.5 0.2 - 0.8 08/10/2018 [facility] Automated blood eosinophil count 0.4 0.0 - 0.4 08/10/2018 [facility] Automated blood basophil count (count/volume) 0.0 0.0 - 0.1 08/10/2018 [facility] Absolute Immature Granulocyte (auto 0.02 0 - 0.1 08/10/2018 [facility] Prothrombin time (PT) in platelet poor plasma by coagulation assay 13.4 11.9 - 14.5 08/10/2018 [facility] INR in Platelet poor plasma by Coagulation assay 0.97 08/10/2018 [facility] Activated partial thromboplastin time (aPTT) in platelet poor plasma bycoagulation assay 29.2 23.8 - 35.5 08/10/2018 [facility] Serum or plasma sodium measurement (moles/volume) 140 136 - 145 08/10/2018 [facility] Serum or plasma potassium measurement (moles/volume) 4.1 3.5 - 5.1 08/10/2018 [facility] Serum or plasma chloride measurement (moles/volume) 108 98 - 107 08/10/2018 [facility] Serum or plasma carbon dioxide, total measurement (moles/volume) 24 22 - 29 08/10/2018 [facility] Serum or plasma anion gap 12.1 8 - 16 08/10/2018 [facility] Serum or plasma urea nitrogen measurement (mass/volume) 19 7 - 26 08/10/2018 [facility] Serum or plasma creatinine measurement (mass/volume) 0.74 0.57 - 1.11 08/10/2018 [facility] Serum or plasma urea nitrogen/creatinine mass ratio 26 6 - 25 08/10/2018 [facility] Estimated glomerular filtration rate (GFR) determination > 60 60 08/10/2018 [facility] Glucose measurement 104 74 - 118 08/10/2018 [facility] Serum or plasma calcium measurement (mass/volume) 8.5 8.4 - 10.2 08/10/2018 [facility] Serum or plasma triglyceride measurement (mass/volume) 124 0 - 149 08/10/2018 [facility] Serum or plasma cholesterol measurement (mass/volume) 157 0 - 199 08/10/2018 [facility] Serum or plasma cholesterol in LDL measurement (mass/volume) 88 60 - 130 08/10/2018 [facility] Serum or plasma cholesterol in HDL measurement (mass/volume) 44 40 - 60 08/10/2018 [facility] Serum or plasma total cholesterol/cholesterol in HDL mass ratio 3.6 3.0 - 3.6 08/10/2018 [facility] Serum or plasma creatine kinase measurement (enzymatic activity/volume) 37 29 - 168 08/10/2018 [facility] Serum or plasma creatine kinase MB measurement (mass/volume) 0.70 0 - 5.0 08/10/2018 [facility] Troponin I measurement by highly sensitive enzyme immunoassay < 0.001 0 - 0.300 08/10/2018 [facility] Urine color determination YELLOW YELLOW 08/09/2018 [facility] Urine clarity CLEAR CLEAR 08/09/2018 [facility] Specific gravity of Urine by Test strip 1.025 1.010 - 1.025 08/09/2018 [facility] Urine pH measurement by automated test strip 6 5 - 7 08/09/2018 [facility] Urine leukocyte esterase detection by automated test strip TRACE NEGATIVE 08/09/2018 [facility] Urine nitrite detection by automated test strip NEGATIVE NEGATIVE 08/09/2018 [facility] Urine protein detection by automated test strip NEGATIVE NEGATIVE 08/09/2018 [facility] Urine glucose detection by automated test strip NEGATIVE NEGATIVE 08/09/2018 [facility] Urine ketones detection by automated test strip NEGATIVE NEGATIVE 08/09/2018 [facility] Urine urobilinogen measurement by test strip (mass/volume) 0.2 0.2 - 1 08/09/2018 [facility] Urine total bilirubin detection NEGATIVE NEGATIVE 08/09/2018 [facility] Urine erythrocytes detection MODERATE NEGATIVE 08/09/2018 [facility] Automated urine sediment leukocyte count by microscopy (number/high power field) NONE 0 - 5 08/09/2018 [facility] Erythrocytes detection in urine sediment by light microscopy 6-10 0 - 5 08/09/2018 [facility] Bacteria detection in urine sediment by light microscopy MANY NONE 08/09/2018 [facility] Epithelial cells detection in urine sediment by light microscopy MODERATE NONE 08/09/2018 [facility] Amorphous sediment detection in urine sediment by light microscopy MODERATE FEW 08/09/2018 [facility] Fibrin D-dimer DDU measurement in platelet poor plasma (mass/volume) 0.53 0.00 - 0.45 08/09/2018 [facility] Serum or plasma magnesium measurement (mass/volume) 2.4 1.3 - 2.1 08/09/2018 [facility] Serum or plasma total bilirubin measurement (mass/volume) 0.6 0.2 - 1.2 08/09/2018 [facility] Aspartate Amino Transf (AST/SGOT) 20 5 - 34 08/09/2018 [facility] Serum or plasma alanine aminotransferase measurement (enzymatic activity/volume) 20 0 - 55 08/09/2018 [facility] Serum or plasma protein measurement (mass/volume) 8.0 6.5 - 8.1 08/09/2018 [facility] Serum or plasma albumin measurement (mass/volume) 3.7 3.5 - 5.0 08/09/2018 [facility] Plasma globulin measurement (mass/volume) 4.3 2.3 - 3.5 08/09/2018 [facility] Serum or plasma albumin/globulin mass ratio 0.9 0.8 - 2.0 08/09/2018 [facility] Serum or plasma alkaline phosphatase measurement (enzymatic activity/volume) 84 40 - 150 08/09/2018 [facility] BNP Bld-mCnc < 10.0 0 - 100 08/09/2018 [facility] URINE AND STOOL UA Urobilinogen <=1.0 mg/dL 0.1 - 1.0 07/09/2018 [facility] URINE AND STOOL UA Spec Grav 1.026 <=1.030 07/09/2018 [facility] URINE AND STOOL UA Glucose Negative mg/dL Negative mg/dL 07/09/2018 [facility] URINE AND STOOL UA Protein Negative mg/dL Negative mg/dL 07/09/2018 [facility] URINE AND STOOL UA Blood Moderate *ABN* (07/09/18 5:29 PM) Negative 07/09/2018 [facility] URINE AND STOOL UA pH 6.0 5.0 - 8.0 07/09/2018 [facility] URINE AND STOOL UA Nitrite Negative (07/09/18 5:29 PM) Negative 07/09/2018 [facility] URINE AND STOOL UA Ketones Negative mg/dL Negative mg/dL 07/09/2018 [facility] URINE AND STOOL UA Bili Negative *NA* (07/09/18 5:29 PM) Negative 07/09/2018 [facility] URINE AND STOOL UA WBC 1 0 - 5 07/09/2018 [facility] URINE AND STOOL UA Sq Epi Occasional /LPF Few /LPF 07/09/2018 [facility] URINE AND STOOL UA RBC 2 0 - 2 07/09/2018 [facility] URINE AND [...] [facility] URINE AND STOOL UA WBC 97 0 - 5 07/09/2018 [facility] URINE AND STOOL UA Bacteria Moderate /HPF None Seen /HPF 07/09/2018 [facility] URINE AND STOOL UA Mucus Moderate /LPF None Seen /LPF 07/09/2018 [facility] URINE AND STOOL UA Urobilinogen <=1.0 mg/dL 0.1 - 1.0 07/09/2018 [facility] URINE AND STOOL UA RBC >182 0 - 2 07/09/2018 [facility] URINE AND STOOL UA Blood Large *ABN* (07/09/18 4:13 PM) Negative 07/09/2018 [facility] URINE AND STOOL UA Nitrite Negative (07/09/18 4:13 PM) Negative 07/09/2018 [facility] URINE AND STOOL UA [place] Yeast Many /HPF None Seen /HPF 07/09/2018 [facility] URINE AND STOOL UA Ketones Negative mg/dL Negative mg/dL 07/09/2018 [facility] URINE AND STOOL UA Bili Negative *NA* (07/09/18 4:13 PM) Negative 07/09/2018 [facility] URINE AND STOOL UA Glucose 50 mg/dL Negative mg/dL 07/09/2018 [facility] URINE AND STOOL UA Protein 100 mg/dL Negative mg/dL 07/09/2018 [facility] URINE AND STOOL UA Spec Grav 1.043 <=1.030 07/09/2018 [facility] URINE AND STOOL UA Turbidity Marked *ABN* (07/09/18 4:13 PM) Clear 07/09/2018 [facility] URINE AND STOOL UA pH 6.0 5.0 - 8.0 07/09/2018 [facility] CARDIAC ENZYMES Troponin-I <0.02 0.00 - 0.40 07/09/2018 [facility] CHEM PANEL Phosphorus 3.5 2.5 - 4.5 07/09/2018 [facility] CHEM PANEL Magnesium Lvl 2.5 1.8 - 2.4 07/09/2018 [facility] CHEM PANEL Bili Indirect 0.3 0.0 - 1.0 07/09/2018 [facility] CHEM PANEL Bili Direct 0.1 0.0 - 0.3 07/09/2018 [facility] CHEM PANEL Alk Phos 83 39 - 136 07/09/2018 [facility] CHEM PANEL Bili Total 0.4 0.2 - 1.3 07/09/2018 [facility] CHEM PANEL AST 21 0 - 37 07/09/2018 [facility] CHEM PANEL Albumin Lvl 3.0 3.5 - 5.0 07/09/2018 [facility] CHEM PANEL Globulin 4.3 2.7 - 4.2 07/09/2018 [facility] CHEM PANEL A/G Ratio 0.7 0.7 - 1.6 07/09/2018 [facility] CHEM PANEL ALT 24 0 - 65 07/09/2018 [facility] CHEM PANEL Total Protein 7.3 6.4 - 8.4 07/09/2018 [facility] ELECTROLYTES AGAP 12.5 10.0 - 20.0 07/09/2018 [facility] ELECTROLYTES eGFR 88 07/09/2018 Result Comment: The eGFR is calculated [...] should be multiplied by the estimated BMI. [facility] ELECTROLYTES CO2 24 24 - 32 07/09/2018 [facility] ELECTROLYTES Calcium Lvl 8.4 8.5 - 10.5 07/09/2018 [facility] ELECTROLYTES Potassium Lvl 3.5 3.5 - 5.1 07/09/2018 [facility] ELECTROLYTES Chloride Lvl 105 95 - 109 07/09/2018 [facility] ELECTROLYTES Creatinine Lvl 0.74 0.50 - 1.40 07/09/2018 [facility] ELECTROLYTES Sodium Lvl 138 135 - 145 07/09/2018 [facility] ELECTROLYTES Glucose Lvl 121 70 - 99 07/09/2018 [facility] ELECTROLYTES BUN 17 7 - 22 07/09/2018 [facility] HEMATOLOGY Basophils # 0.1 0.0 - 0.2 07/09/2018 [facility] HEMATOLOGY Eosinophils # 0.4 0.0 - 0.5 07/09/2018 [facility] HEMATOLOGY Basophils 1.0 0.0 - 1.0 07/09/2018 [facility] HEMATOLOGY Neutrophils # 3.7 1.5 - 8.1 07/09/2018 [facility] HEMATOLOGY Lymphocytes # 2.5 1.0 - 5.5 07/09/2018 [facility] HEMATOLOGY Monocytes # 0.5 0.0 - 0.8 07/09/2018 [facility] HEMATOLOGY Lymphocytes 35.3 20.0 - 40.0 07/09/2018 [facility] HEMATOLOGY Monocytes 6.8 2.0 - 12.0 07/09/2018 [facility] HEMATOLOGY Eosinophils 6.1 0.0 - 4.0 07/09/2018 [facility] HEMATOLOGY Segs 50.8 45.0 - 75.0 07/09/2018 [facility] HEMATOLOGY MPV 8.2 7.4 - 10.4 07/09/2018 [facility] HEMATOLOGY Platelet 241 133 - 450 07/09/2018 [facility] HEMATOLOGY MCV 95.2 80.0 - 98.0 07/09/2018 [facility] HEMATOLOGY MCH 32.3 27.0 - 31.0 07/09/2018 [facility] HEMATOLOGY Hct 37.1 36.0 - 48.0 07/09/2018 [facility] HEMATOLOGY Hgb 12.6 12.0 - 16.0 07/09/2018 [facility] MCHC 33.9 32.0 - 36.0 07/09/2018 [facility] HEMATOLOGY RDW 13.8 11.5 - 14.5 07/09/2018 [facility] HEMATOLOGY WBC 7.2 3.7 - 10.4 07/09/2018 [facility] HEMATOLOGY RBC 3.90 4.20 - 5.40 07/09/2018 [facility] LIPIDS VLDL 28 07/09/2018 [facility] LIPIDS LDL (Calculated) 102 <=99 mg/dL 07/09/2018 [facility] LIPIDS Trig 141 <=149 mg/dL 07/09/2018 [facility] LIPIDS HDL 50 >=61 mg/dL 07/09/2018 [facility] LIPIDS Chol 180 <=199 mg/dL 07/09/2018 [facility] LIPIDS CHD Risk 3.60 3.90 - 5.80 07/09/2018 [facility] CARDIAC ENZYMES Troponin-I <0.02 0.00 - 0.40 07/09/2018 [facility] CARDIAC ENZYMES Troponin-I <0.02 0.00 - 0.40 07/08/2018 [facility] CARDIAC ENZYMES CK MB <1.0 0.5 - 3.6 07/08/2018 [facility] CARDIAC ENZYMES Total CK 96 12 - 191 07/08/2018 [facility] CARDIAC ENZYMES BNP 9 <=100 pg/mL 07/08/2018 [facility] CARDIAC ENZYMES CK MB Index <1.0 0.0 - 2.5 07/08/2018 [facility] CHEM PANEL eGFR 66 07/08/2018 Result Comment: The eGFR is calculated [...] by the estimated BMI. [facility] CHEM PANEL BUN 14 7 - 22 07/08/2018 [facility] CHEM PANEL Chloride Lvl 107 95 - 109 07/08/2018 [facility] CHEM PANEL CO2 26 24 - 32 07/08/2018 [facility] CHEM PANEL Potassium Lvl 3.4 3.5 - 5.1 07/08/2018 [facility] CHEM PANEL Glucose Lvl 144 70 - 99 07/08/2018 [facility] CHEM PANEL Globulin 4.9 2.7 - 4.2 07/08/2018 [facility] CHEM PANEL B/C Ratio 15 6 - 25 07/08/2018 [facility] CHEM PANEL Alk Phos 91 39 - 136 07/08/2018 [facility] CHEM PANEL Bili Total 0.2 0.2 - 1.3 07/08/2018 [facility] CHEM PANEL AGAP 9.4 10.0 - 20.0 07/08/2018 [facility] CHEM PANEL A/G Ratio 0.7 0.7 - 1.6 07/08/2018 [facility] CHEM PANEL Total Protein 8.3 6.4 - 8.4 07/08/2018 [facility] CHEM PANEL Calcium Lvl 8.7 8.5 - 10.5 07/08/2018 [facility] CHEM PANEL AST 19 0 - 37 07/08/2018 [facility] CHEM PANEL Albumin Lvl 3.4 3.5 - 5.0 07/08/2018 [facility] CHEM PANEL ALT 26 0 - 65 07/08/2018 [facility] CHEM PANEL Sodium Lvl 139 135 - 145 07/08/2018 [facility] CHEM PANEL Creatinine Lvl 0.93 0.50 - 1.40 07/08/2018 [facility] HEMATOLOGY PTT 30.1 22.9 - 35.8 07/08/2018 [facility] HEMATOLOGY INR 1.39 0.85 - 1.17 07/08/2018 [facility] HEMATOLOGY PT 16.8 12.0 - 14.7 07/08/2018 [facility] HEMATOLOGY MPV 8.3 7.4 - 10.4 07/08/2018 [facility] HEMATOLOGY Platelet 271 133 - 450 07/08/2018 [facility] HEMATOLOGY RDW 13.8 11.5 - 14.5 07/08/2018 [facility] HEMATOLOGY MCV 94.2 80.0 - 98.0 07/08/2018 [facility] HEMATOLOGY Hgb 13.4 12.0 - 16.0 07/08/2018 [facility] HEMATOLOGY Hct 39.1 36.0 - 48.0 07/08/2018 [facility] MCHC 34.2 32.0 - 36.0 07/08/2018 [facility] MCH 32.2 27.0 - 31.0 07/08/2018 [facility] HEMATOLOGY RBC 4.15 4.20 - 5.40 07/08/2018 [facility] HEMATOLOGY WBC 10.0 3.7 - 10.4 07/08/2018 [facility] HEMATOLOGY Monocytes # 0.5 0.0 - 0.8 07/08/2018 [facility] HEMATOLOGY Neutrophils # 6.2 1.5 - 8.1 07/08/2018 [facility] HEMATOLOGY Eosinophils # 0.4 0.0 - 0.5 07/08/2018 [facility] HEMATOLOGY Lymphocytes # 2.8 1.0 - 5.5 07/08/2018 [facility] HEMATOLOGY Basophils # 0.1 0.0 - 0.2 07/08/2018 [facility] HEMATOLOGY Lymphocytes 28.2 20.0 - 40.0 07/08/2018 [facility] HEMATOLOGY Eosinophils 4.2 0.0 - 4.0 07/08/2018 [facility] HEMATOLOGY Basophils 0.7 0.0 - 1.0 07/08/2018 [facility] HEMATOLOGY Segs 61.6 45.0 - 75.0 07/08/2018 [facility] HEMATOLOGY Monocytes 5.3 2.0 - 12.0 07/08/2018 [facility] Urine color determination YELLOW YELLOW 04/02/2018 [facility] Urine clarity SL CLOUDY CLEAR 04/02/2018 [facility] Specific gravity of Urine by Test strip 1.025 1.010 - 1.025 04/02/2018 [facility] Urine pH measurement by automated test strip 6 5 - 7 04/02/2018 [facility] Urine leukocyte esterase detection by dipstick NEGATIVE NEGATIVE 04/02/2018 [facility] Urine nitrite detection NEGATIVE NEGATIVE 04/02/2018 [facility] Urine protein measurement by test strip (mass/volume) NEGATIVE NEGATIVE 04/02/2018 [facility] Urine glucose detection NEGATIVE NEGATIVE 04/02/2018 [facility] Urine ketones detection by automated test strip 2+ NEGATIVE 04/02/2018 [facility] Urine urobilinogen measurement by test strip (mass/volume) 0.2 0.2 - 1 04/02/2018 [facility] Urine total bilirubin measurement (mass/volume) NEGATIVE NEGATIVE 04/02/2018 [facility] Urine erythrocytes detection 1+ NEGATIVE 04/02/2018 [facility] Automated urine sediment leukocyte count by microscopy (number/high power field) 0-5 0 - 5 04/02/2018 [facility] Erythrocytes detection in urine sediment by light microscopy 0-5 0 - 5 04/02/2018 [facility] Bacteria detection in urine sediment by light microscopy FEW NONE 04/02/2018 [facility] Epithelial cells detection in urine sediment by light microscopy FEW NONE 04/02/2018 [facility] Capillary blood glucose measurement by glucometer (mass/volume) 102 70 - 120 04/01/2018 [facility] Blood leukocytes automated count (number/volume) 6.38 4.8 - 10.8 04/01/2018 [facility] Blood erythrocytes automated count (number/volume) 3.73 3.6 - 5.1 04/01/2018 [facility] Blood hemoglobin measurement (moles/volume) 11.7 12.0 - 16.0 04/01/2018 [facility] Automated blood hematocrit (volume fraction) 35.9 34.2 - 44.1 04/01/2018 [facility] Automated erythrocyte mean corpuscular volume 96.2 81 - 99 04/01/2018 [facility] Automated erythrocyte mean corpuscular hemoglobin (mass per erythrocyte) 31.4 28 - 32 04/01/2018 [facility] Automated erythrocyte mean corpuscular hemoglobin concentration measurement (mass/volume) 32.6 31 - 35 04/01/2018 [facility] RDW BldCo-Rto 12.7 11.7 - 14.4 04/01/2018 [facility] Automated blood platelet count (count/volume) 217 140 - 360 04/01/2018 [facility] Automated blood segmented neutrophil count as percentage of total leukocytes 49.3 38.7 - 80.0 04/01/2018 [facility] Automated blood lymphocyte count as percentage ot total leukocytes 38.4 18.0 - 39.1 04/01/2018 [facility] Automated blood monocyte count as percentage of total leukocytes 6.3 4.4 - 11.3 04/01/2018 [facility] Automated blood eosinophil count as percentage of total leukocytes 5.2 0.0 - 6.0 04/01/2018 [facility] Automated blood basophil count as percentage of total leukocytes 0.6 0.0 - 1.0 04/01/2018 [facility] IM GRANULOCYTES % 0.2 0.0 - 1.0 04/01/2018 [facility] Automated blood neutrophil count 3.2 2.1 - 6.9 04/01/2018 [facility] Blood lymphocytes count (number/volume) 2.5 1.0 - 3.2 04/01/2018 [facility] Blood monocytes automated count (number/volume) 0.4 0.2 - 0.8 04/01/2018 [facility] Automated blood eosinophil count 0.3 0.0 - 0.4 04/01/2018 [facility] Automated blood basophil count (count/volume) 0.0 0.0 - 0.1 04/01/2018 [facility] Absolute Immature Granulocyte (auto 0.01 0 - 0.1 04/01/2018 [facility] Serum or plasma sodium measurement (moles/volume) 136 136 - 145 04/01/2018 [facility] Serum or plasma potassium measurement (moles/volume) 3.7 3.5 - 5.1 04/01/2018 [facility] Serum or plasma chloride measurement (moles/volume) 106 98 - 107 04/01/2018 [facility] Serum or plasma carbon dioxide, total measurement (moles/volume) 22 22 - 29 04/01/2018 [facility] Serum or plasma anion gap 11.7 8 - 16 04/01/2018 [facility] Serum or plasma urea nitrogen measurement (mass/volume) 9 7 - 26 04/01/2018 [facility] Serum or plasma creatinine measurement (mass/volume) 0.69 0.57 - 1.11 04/01/2018 [facility] Serum or plasma urea nitrogen/creatinine mass ratio 13 6 - 25 04/01/2018 [facility] Estimated glomerular filtration rate (GFR) determination > 60 60 04/01/2018 [facility] Glucose measurement 95 74 - 118 04/01/2018 [facility] Serum or plasma calcium measurement (mass/volume) 8.1 8.4 - 10.2 04/01/2018 [facility] Serum or plasma total bilirubin measurement (mass/volume) 0.2 0.2 - 1.2 04/01/2018 [facility] Aspartate Amino Transf (AST/SGOT) 17 5 - 34 04/01/2018 [facility] Serum or plasma alanine aminotransferase measurement (enzymatic activity/volume) 15 0 - 55 04/01/2018 [facility] Serum or plasma protein measurement (mass/volume) 6.4 6.5 - 8.1 04/01/2018 [facility] Serum or plasma albumin measurement (mass/volume) 2.9 3.5 - 5.0 04/01/2018 [facility] Plasma globulin measurement (mass/volume) 3.5 2.3 - 3.5 04/01/2018 [facility] Serum or plasma albumin/globulin mass ratio 0.8 0.8 - 2.0 04/01/2018 [facility] Serum or plasma alkaline phosphatase measurement (enzymatic activity/volume) 65 40 - 150 04/01/2018 [facility] Prothrombin time (PT) in platelet poor plasma by coagulation assay 14.4 11.9 - 14.5 03/31/2018 [facility] INR in Platelet poor plasma by Coagulation assay 1.03 03/31/2018 [facility] Stool lactoferrin detection NEGATIVE NEGATIVE 03/30/2018 [facility] Clostridium difficile A and B toxin assay NEGATIVE NEGATIVE 03/30/2018 [facility] Stool lactoferrin detection NEGATIVE NEGATIVE 03/30/2018 [facility] Stool calprotectin measurement (mass/mass) <16 0 - 120 03/30/2018 [facility] Clostridium difficile A and B toxin assay NEGATIVE NEGATIVE 03/30/2018 [facility] Lactic Acid Level 8.5 4.5 - 19.8 03/29/2018 [facility] Lactic Acid Level 8.5 4.5 - 19.8 03/29/2018 [facility] Hemoglobin A1c Percent 7.2 4.0 - 7.0 03/28/2018 [facility] Serum or plasma triglyceride measurement (mass/volume) 88 0 - 149 03/28/2018 [facility] Serum or plasma cholesterol measurement (mass/volume) 176 0 - 199 03/28/2018 [facility] Serum or plasma cholesterol in LDL measurement (mass/volume) 106 60 - 130 03/28/2018 [facility] Serum or plasma cholesterol in HDL measurement (mass/volume) 52 40 - 60 03/28/2018 [facility] Serum or plasma total cholesterol/cholesterol in HDL mass ratio 3.4 3.0 - 3.6 03/28/2018 [facility] Serum or plasma lipase measurement (enzymatic activity/volume) 9 8 - 78 03/28/2018 [facility] Hemoglobin A1c Percent 7.2 4.0 - 7.0 03/28/2018 [facility] Serum or plasma lipase measurement (enzymatic activity/volume) 9 8 - 78 03/28/2018 [facility] Serum or plasma phenytoin measurement (mass/volume) 13.41 10 - 20 12/28/2017 [facility] Serum or plasma magnesium measurement (mass/volume) 2.3 1.3 - 2.1 12/28/2017 [facility] Serum or plasma creatine kinase measurement (enzymatic activity/volume) 118 29 - 168 12/28/2017 [facility] Serum or plasma creatine kinase MB measurement (mass/volume) 0.70 0 - 5.0 12/28/2017 [facility] Troponin I measurement by highly sensitive enzyme immunoassay 0.001 0 - 0.300 12/28/2017 [facility] Serum or plasma phenytoin measurement (mass/volume) 13.41 10 - 20 12/28/2017 [facility] URINE AND STOOL UA Urobilinogen <=1.0 mg/dL 0.1 - 1.0 05/29/2016 [facility] URINE AND STOOL UA Bacteria Many /HPF None Seen /HPF 05/29/2016 [facility] URINE AND STOOL UA Mucus Few /LPF None Seen /LPF 05/29/2016 [facility] URINE AND STOOL UA Bili Negative *NA* (05/28/16 9:30 PM) Negative 05/29/2016 [facility] URINE AND STOOL UA Blood Large *ABN* (05/28/16 9:30 PM) Negative 05/29/2016 [facility] URINE AND STOOL UA Ketones Negative mg/dL Negative mg/dL 05/29/2016 [facility] URINE AND STOOL UA Turbidity Marked *ABN* (05/28/16 9:30 PM) Clear 05/29/2016 [facility] URINE AND STOOL UA Color Yellow *NA* (05/28/16 9:30 PM) Yellow 05/29/2016 [facility] URINE AND STOOL UA Spec Grav 1.018 <=1.030 05/29/2016 [facility] URINE AND STOOL UA Glucose Negative mg/dL Negative mg/dL 05/29/2016 [facility] URINE AND STOOL UA pH 6.0 5.0 - 8.0 05/29/2016 [facility] URINE AND STOOL UA Protein 30 mg/dL Negative mg/dL 05/29/2016 [facility] URINE AND STOOL UA WBC 10 0 - 5 05/29/2016 [facility] URINE AND STOOL UA RBC >182 0 - 2 05/29/2016 [facility] URINE AND STOOL UA Nitrite Positive *ABN* (05/28/16 9:30 PM) Negative 05/29/2016 [facility] URINE AND STOOL UA Leuk Est Large *ABN* (05/28/16 9:30 PM) Negative 05/29/2016 [facility] URINE AND STOOL UA Sq Epi Many /LPF Few /LPF 05/29/2016 [facility] CARDIAC ENZYMES Troponin-I <0.02 0.00 - 0.40 05/28/2016 [facility] CARDIAC ENZYMES Total CK 141 12 - 191 05/28/2016 [facility] CARDIAC ENZYMES CK MB 1.8 0.5 - 3.6 05/28/2016 [facility] CARDIAC ENZYMES CK MB Index 1.3 0.0 - 2.5 05/28/2016 [facility] CHEM PANEL eGFR 70 05/28/2016 Result Comment: The eGFR is calculated [...] should be multiplied by the estimated BMI. [facility] CHEM PANEL AST 15 0 - 37 05/28/2016 [facility] CHEM PANEL ALT 21 0 - 65 05/28/2016 [facility] CHEM PANEL Albumin Lvl 3.4 3.5 - 5.0 05/28/2016 [facility] CHEM PANEL Total Protein 7.8 6.4 - 8.4 05/28/2016 [facility] CHEM PANEL Calcium Lvl 8.6 8.5 - 10.5 05/28/2016 [facility] CHEM PANEL A/G Ratio 0.8 0.7 - 1.6 05/28/2016 [facility] CHEM PANEL AGAP 17.3 10.0 - 20.0 05/28/2016 [facility] CHEM PANEL Globulin 4.4 2.7 - 4.2 05/28/2016 [facility] CHEM PANEL B/C Ratio 24 6 - 25 05/28/2016 [facility] CHEM PANEL Bili Total 0.3 0.2 - 1.3 05/28/2016 [facility] CHEM PANEL Alk Phos 90 39 - 136 05/28/2016 [facility] CHEM PANEL Glucose Lvl 152 70 - 99 05/28/2016 [facility] CHEM PANEL Potassium Lvl 3.3 3.5 - 5.1 05/28/2016 [facility] CHEM PANEL Chloride Lvl 104 95 - 109 05/28/2016 [facility] CHEM PANEL Sodium Lvl 141 135 - 145 05/28/2016 [facility] CHEM PANEL CO2 23 24 - 32 05/28/2016 [facility] CHEM PANEL Creatinine Lvl 0.90 0.50 - 1.40 05/28/2016 [facility] CHEM PANEL BUN 22 7 - 22 05/28/2016 [facility] CHEM PANEL Lipase Lvl 83 73 - 393 05/28/2016 [facility] HEMATOLOGY RDW 13.3 11.5 - 14.5 05/28/2016 [facility] HEMATOLOGY Platelet 258 133 - 450 05/28/2016 [facility] HEMATOLOGY MPV 8.2 7.4 - 10.4 05/28/2016 [facility] HEMATOLOGY MCHC 34.2 32.0 - 36.0 05/28/2016 [facility] HEMATOLOGY MCH 31.6 27.0 - 31.0 05/28/2016 [facility] HEMATOLOGY Hgb 13.3 12.0 - 16.0 05/28/2016 [facility] HEMATOLOGY MCV 92.4 80.0 - 98.0 05/28/2016 [facility] HEMATOLOGY Hct 38.9 36.0 - 48.0 05/28/2016 [facility] HEMATOLOGY RBC 4.21 4.20 - 5.40 05/28/2016 [facility] HEMATOLOGY WBC 9.3 3.7 - 10.4 05/28/2016 [facility] HEMATOLOGY INR 1.05 0.85 - 1.17 05/28/2016 [facility] HEMATOLOGY PT 13.9 12.0 - 14.7 05/28/2016 [facility] HEMATOLOGY PTT 29.9 22.9 - 35.8 05/28/2016 [facility] HEMATOLOGY Basophils 0.9 0.0 - 1.0 05/28/2016 [facility] HEMATOLOGY Lymphocytes # 2.9 1.0 - 5.5 05/28/2016 [facility] HEMATOLOGY Eosinophils 4.7 0.0 - 4.0 05/28/2016 [facility] HEMATOLOGY Segs-Bands # 5.4 1.5 - 8.1 05/28/2016 [facility] HEMATOLOGY Eosinophils # 0.4 0.0 - 0.5 05/28/2016 [facility] HEMATOLOGY Basophils # 0.1 0.0 - 0.2 05/28/2016 [facility] HEMATOLOGY Monocytes # 0.5 0.0 - 0.8 05/28/2016 [facility] HEMATOLOGY Segs 57.8 45.0 - 75.0 05/28/2016 [facility] HEMATOLOGY Lymphocytes 31.0 20.0 - 40.0 05/28/2016 [facility] HEMATOLOGY Monocytes 5.6 2.0 - 12.0 05/28/2016 [facility] CHEMISTRY Lipase Lvl 107 73 - 393 07/14/2011 Normal [facility] CHEMISTRY Total CK 39 12 - 191 07/14/2011 Normal [facility] CHEMISTRY Troponin-I <0.02 0.00 - 0.40 07/14/2011 Normal [facility] CHEMISTRY Myoglobin 10 25 - 72 07/14/2011 LOW [facility] CHEMISTRY Chloride Lvl 102 95 - 109 07/14/2011 Normal [facility] CHEMISTRY BUN 18 7 - 22 07/14/2011 Normal [facility] CHEMISTRY Glucose Lvl 95 70 - 99 07/14/2011 Normal <sup>1</sup>Interpretive Data: Adult reference range values reflect the clinical guidelines of the [place] [employer]. [facility] CHEMISTRY CO2 25 24 - 32 07/14/2011 Normal [facility] CHEMISTRY Calcium Lvl 9.0 8.5 - 10.5 07/14/2011 Normal [facility] CHEMISTRY Creatinine Lvl 0.7 0.5 - 1.4 07/14/2011 Normal [facility] CHEMISTRY Sodium Lvl 139 135 - 145 07/14/2011 Normal [facility] CHEMISTRY Potassium Lvl 4.2 3.5 - 5.1 07/14/2011 Normal [facility] CHEMISTRY AGAP 16.2 10.0 - 20.0 07/14/2011 Normal [facility] CHEMISTRY Etoh (%) <0.003 07/14/2011 NA <sup>2</sup>Interpretive Data: Negative Range: <0.003% Toxic Range: >0.25% [facility] CHEMISTRY Ethanol Lvl <3 07/14/2011 NA <sup>3</sup>Interpretive Data: Negative Range: <3 mg/dL Toxic Range: >250 mg/dL [facility] HEMATOLOGY Platelet 286 133 - 450 07/14/2011 Normal [facility] HEMATOLOGY RDW 13.1 11.5 - 14.5 07/14/2011 Normal [facility] HEMATOLOGY MCHC 34.3 32.0 - 36.0 07/14/2011 Normal [facility] HEMATOLOGY MPV 8.0 7.4 - 10.4 07/14/2011 Normal [facility] HEMATOLOGY Hgb 13.6 12.0 - 16.0 07/14/2011 Normal [facility] HEMATOLOGY MCH 31.7 27.0 - 31.0 07/14/2011 [facility] HEMATOLOGY MCV 92.5 81.0 - 99.0 07/14/2011 Normal [facility] HEMATOLOGY Hct 39.7 36.0 - 48.0 07/14/2011 Normal [facility] HEMATOLOGY RBC 4.29 4.20 - 5.40 07/14/2011 Normal [facility] HEMATOLOGY WBC 14.1 3.7 - 10.4 07/14/2011 [facility] HEMATOLOGY INR 0.93 0.85 - 1.17 07/14/2011 Normal <sup>4</sup>Interpretive Data: RECOMMENDED RANGES FOR PROTIME INR: 2.0-3.0 for most medical and surgical thromboembolic states. 2.5-3.5 for artificial heart valves and recurrent embolism. INR SHOULD BE USED ONLY FOR PATIENTS ON STABLE ANTICOAGULANT THERAPY. [facility] HEMATOLOGY PTT 22.9 22.9 - 35.8 07/14/2011 Normal <sup>5</sup>Interpretive Data: Heparin Therapeutic Range: 57 - 92 Seconds [facility] HEMATOLOGY PT 12.5 12.0 - 14.7 07/14/2011 Normal [facility] HEMATOLOGY Plt Morph Normal (07/14/2011 17:29:00) 07/14/2011 Normal [facility] HEMATOLOGY RBC Morph Normal (07/14/2011 17:29:00) 07/14/2011 Normal [facility] HEMATOLOGY Segs-Bands # 10.5 1.5 - 8.1 07/14/2011 HI [facility] HEMATOLOGY Lymphocytes # 2.9 1.0 - 5.5 07/14/2011 Normal [facility] HEMATOLOGY Basophils # 0.0 0.0 - 0.2 07/14/2011 Normal [facility] HEMATOLOGY Eosinophils # 0.2 0.0 - 0.5 07/14/2011 Normal [facility] HEMATOLOGY Basophils 0.0 0.0 - 1.0 07/14/2011 Normal [facility] HEMATOLOGY Eosinophils 1.6 0.0 - 4.0 07/14/2011 Normal [facility] HEMATOLOGY Monocytes 3.9 2.0 - 12.0 07/14/2011 Normal [facility] HEMATOLOGY Lymphocytes 20.3 20.0 - 40.0 07/14/2011 Normal [facility] HEMATOLOGY Monocytes # 0.5 0.0 - 0.8 07/14/2011 Normal [facility] HEMATOLOGY Segs 74.2 45.0 - 75.0 07/14/2011 Normal [facility] IMMUNOLOGY CDC-HIV 1/2 Ab Negative *NA* (07/14/2011 16:52:00) Negative 07/14/2011 NA [facility] Pathology Reports No Data Provided for This Section Diagnostic Reports Report Value Date Source Neck soft tissue w contrast CT Clinical [...] No neck mass or fluid collection. SL: IESHA 07/09/2018 [facility] Ext Upper Venous Doppler Unilat US Clinical [...] right upper extremity DVT. SL: MADDI 07/08/2018 [facility] Chest 2 views DX Patient Name: JESUS ASCENCIO : 1955; Age: 63 years Female MR: [id number] Study: Chest 2 views DX Order Time: [...] represent mild pulmonary edema or pneumonia. SL: [id number] 07/08/2018 [facility] Chest Pulmonary Embolism CTA Patient Name: JESUS ASCENCIO : 1955; Age: 63 years y/o Female MR: [id number] * COMPUTED TOMOGRAPHY SCAN OF THE CHEST [...] lower superior vena cava. SL: MARYANN 07/08/2018 [facility] Shoulder series DX Exam: Right Shoulder series [...] 2. Moderate AC joint degenerative arthropathy. SL: NAZARIO-PC 01/12/2018 [facility] Brain wo contrast CT CT HEAD WITHOUT [...] of acute intracranial abnormality. SL: LE 01/10/2018 [facility] Ext Upper Venous Doppler Unilat US [...] Negative right upper extremity venous Doppler. SL: MELANIE 01/10/2018 [facility] Chest Pulmonary Embolism CTA CT ANGIOGRAM OF [...] or pleural spaces are detected. 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 SL: JANUARY 01/10/2018 [facility] Pulmonary Embolism CTA Clinical Indication: Shortness of [...] Omnipaque was used for the exam. Dose: DZQ=126.88 mGy-cm FINDINGS: LUNG PARENCHYMA AND PLEURA: Dependent [...] lung consolidation, pleural effusion or pneumothorax. SL: DENISE 05/29/2016 [facility] ED Abdomen/Pelvis IV contrast only CT Patient Name: JESUS ASCENCIO : 1955; Age: 61 years y/o Female MR: [id number] Study: ED Abdomen/Pelvis IV contrast only CT [...] pancreas. 8. Lower lumbar facet arthrosis. SL: PJOHNSROLANDO 05/29/2016 [facility] Chest 1view DX Study: Chest 1view DX 05/28/2016 5:54 PM CDT Patient Name: JESUS ASCENCIO MR: [id number] : 1955; Age: 61 years y/o Female [...] No acute abnormality as above discussed. SL: TPAINTER-PC 05/28/2016 [facility] Consultation Notes No Data Provided for This Section Discharge Summaries No Data Provided for This Section History and Physicals No Data Provided for This Section Vital Signs Vital Sign Value Date Comments Source Temperature Oral (F) 98.3 F 07/09/2018 [facility] Heart Rate 63 07/09/2018 [facility] Respitory Rate 18 07/09/2018 [facility] Systolic (mm Hg) 125 07/09/2018 [facility] Diastolic (mm Hg) 83 07/09/2018 [facility] Respitory Rate 17 07/09/2018 [facility] Heart Rate 58 07/09/2018 [facility] Systolic (mm Hg) 100 07/09/2018 [facility] Diastolic (mm Hg) 65 07/09/2018 [facility] Temperature Oral (F) 98.2 F 07/09/2018 [facility] Systolic (mm Hg) 92 07/09/2018 [facility] Diastolic (mm Hg) 64 07/09/2018 [facility] Temperature Oral (F) 97.9 F 07/09/2018 [facility] Respitory Rate 17 07/09/2018 [facility] Heart Rate 61 07/09/2018 [facility] BMI Calculated 28.4 07/09/2018 [facility] Weight 72.727 07/09/2018 [facility] Height 160.02 cm 07/09/2018 [facility] BMI Calculated 28.4 07/08/2018 [facility] Weight 72.727 07/08/2018 [facility] Height 160.02 cm 07/08/2018 [facility] Temperature Oral (F) 98.4 F 05/29/2016 [facility] Systolic (mm Hg) 117 05/29/2016 [facility] Diastolic (mm Hg) 61 05/29/2016 [facility] Respitory Rate 16 05/29/2016 [facility] Systolic (mm Hg) 127 05/29/2016 [facility] Diastolic (mm Hg) 65 05/29/2016 [facility] Respitory Rate 15 05/29/2016 [facility] Heart Rate 60 05/29/2016 [facility] Respitory Rate 15 05/29/2016 [facility] Systolic (mm Hg) 144 05/29/2016 [facility] Diastolic (mm Hg) 67 05/29/2016 [facility] Height 160.02 cm 05/28/2016 [facility] BMI Calculated 24.85 05/28/2016 [facility] Weight 63.636 05/28/2016 [facility] Temperature Oral (F) 98.6 F 05/28/2016 [facility] Heart Rate 77 05/28/2016 [facility] Height 160.02 cm 07/14/2011 [facility] Weight 72.727 07/14/2011 [facility] Encounters Location Location Details Encounter Type Encounter Number Reason For Visit Attending Provider ADM Date DC Date Status Source [facility] Emergency [id number] CARA VICKERS 07/14/2011 07/15/[address] [facility] Emergency [id number] Eugene Alvarez 05/28/2016 05/29/2016 [facility] Departed Emergency Room [id number] TONYA ALANIS MD 12/28/2017 12/28/2017 [facility] Discharged Inpatient [id number] NIKKO OCONNOR MD 03/31/2018 04/02/2018 [facility] Observation [id number] Donald Barrett Jr 07/08/2018 07/10/2018 [facility] Discharged Inpatient (obs) [id number] NIKKO OCONNOR MD 08/09/2018 08/12/2018 [facility] Procedures Procedure Code Date Perfomer Comments Source EGD with biopsy [id number] 03/30/2018 [facility] Colonoscopy with biopsy [id number] 03/30/2018 [facility] EXCISION OF ESOPHAGUS, ENDO, DIAGN [id number] 03/30/2018 [facility] EXCISION OF STOMACH, PYLORUS, ENDO, DIAGN [id number] 03/30/2018 [facility] EXCISION OF LEFT LARGE INTESTINE, ENDO, DIAGN [id number] 03/30/2018 [facility] X-ray of chest, two views [id number] 12/28/2017 [facility] Computed tomography of chest with contrast [id number] 12/28/2017 [facility] Computed tomography of abdomen and pelvis with contrast [id number] 12/28/2017 [facility] section [id number] [facility] Assessment and Plan Assessment and Plan Date Source Extracted from:Title: Clinical Document Author: Meghann Callaway MD Date: 07/09/18 [facility] Initial Cardiology Consultation Note Reason [...] this morning. Cardiac cottrell she sees a record changer but cannot remember his name. She has [...] CVA Seizure disorder Osteoarthritis Allergies: Allergies (1) Active Reaction prochlorperazine None documented Medications: Medications (15) Active Scheduled Meds [...] Signs (last 24 hrs) Last Charted Temp Oral 97.9 DegF (JULY 09 07:09) Heart Rate Peripheral 61 bpm (JULY 09 07:09) Resp Rate 17 BRMIN (JULY 09 07:09) SBP 92 mmHg (JULY 09 07:09) DBP 64 mmHg (JULY 09 07:09) SpO2 93 % (JULY 09 07:09) Weight 72.727 kg (JULY 08 23:12) Height 160.02 cm (JULY 08 23:12) BMI 28.4 (JULY 08 23:12) I/O Intake Output Balance 07/08/2018 7a-3p 0.00 0.00 0.00 3p-11p 0.00 0.00 0.00 11p-7a 3.00 0.00 3.00 Totals 3.00 0.00 3.00 07/07/2018 7a-3p 0.00 0.00 0.00 3p-11p 0.00 0.00 0.00 [...] moist Labs (Last four charted values) WBC 7.2 (JULY 09) 10.0 (JULY 08) Hgb 12.6 (JULY 09) 13.4 (JULY 08) Hct 37.1 (JULY 09) 39.1 (JULY 08) Plt 241 (JULY 09) 271 (JULY 08) Na 138 (JULY 09) 139 (JULY 08) K 3.5 (JULY 09) L 3.4 (JULY 08) CO2 24 (JULY 09) 26 (JULY 08) Cl 105 (JULY 09) 107 (JULY 08) Cr 0.74 (JULY 09) 0.93 (JULY 08) BUN 17 (JULY 09) 14 (JULY 08) Glucose Random H 121 (JULY 09) H 144 (JULY 08) Mg H 2.5 (JULY 09) Phos 3.5 (JULY 09) Ca L 8.4 (JULY 09) 8.7 (JULY 08) PT H 16.8 (JULY 08) INR H 1.39 (JULY 08) PTT 30.1 (JULY 08) Troponin <0.02 (JULY 09) <0.02 (JULY 09) <0.02 (JULY 08) CK MB <1.0 (JULY 08) Total CK 96 (JULY 08) Electrocardiogram: Normal sinus rhythm Assessment and [...] for the consult. Call with questions. Extracted from:Title: MARTA Lynch History and Physical Author: Lauryn Cox MD Date: 07/08/18 Arm pain, right(M79.601) Chest pain in adult(R07.9) [...] spent on H&P greater than 40 minutes. MD Heaven Timmonsurnist 07/10/2018 [facility] Plan of Care Plan of Care Date Source Discharge Date 08/12/18 7:45pm Disposition HOME, SELF-CARE Instructions/Education Provided Chest Pain - Chest Wall Prescriptions See Medication Section Additional Instructions/Education Diet as tolerated Activity as tolerated Follow up with PCP within 1 week Follow up with Cardiology in 2 weeks Follow up with an oncologist within 1 week 08/12/2018 [facility] Discharge Date 04/02/18 11:30am Disposition HOME, SELF-CARE Instructions/Education Provided Abdominal Pain - Adult Prescriptions See Medication Section Referrals BARTOLO LEHMAN MD (Gastroenterology) Order Date: 1 Week Entered Date: 03/31/2018 6:49pm Address: [address] [place] [address] [address] [place], [place] [id number] Additional Instructions/Education Do small bowel series outpatient with Dr. Bartolo Lehman. Call and get orders for xrays when you follow up. Activity as tolerated, diet as tolerated. MICHELLE Mcmullen 04/02/2018 [facility] Social History Social History Date Source Social History Problem Response Recorded Date/Time Onset Date Status Hx Psychiatric Problems No 05/05/2016 6:23pm Not Applicable Not Applicable Hx Eating Disorder No 05/05/2016 6:23pm Not Applicable Not Applicable Hx Substance Use Disorder No 05/05/2016 6:23pm Not Applicable Not Applicable Hx Depression Yes 05/05/2016 6:23pm Not Applicable Not Applicable Hx Alcohol Use No 05/05/2016 6:23pm Not Applicable Not Applicable Hx Substance Use Treatment No 05/05/2016 6:23pm Not Applicable Not Applicable Hx Physical Abuse No 05/05/2016 6:23pm Not Applicable Not Applicable Smoking Status Start Date Stop Date Never Smoker 08/12/2018 [facility] Social History TypeResponse Smoking Status Never smoker; Exposure to Tobacco Smoke None; Cigarette Smoking Last 365 Days No; Reg Smoking Cessation Counseling No entered on: 07/08/18 07/09/2018 [facility] Family History No Data Provided for This Section Advance Directives Order Name Results Value Date Source Advance Directives Advance Directives Directive Response Recorded Date/Time Does the patient have an advance directive? No 08/09/18 8:00pm If yes, is advance directive on file with [facility]? No 08/09/18 8:00pm If not on file with [facility] will patient provide a copy? No 08/09/18 8:00pm Do you have a Directive to Physician? No 08/09/18 1:05pm Do you have a Medical Power of Paper [employer] Machine Operator? No 08/09/18 1:05pm Do you have an out of hospital Do Not Resuscitate Order? No 08/09/18 1:05pm Do you have any special needs we should be aware of? No 08/09/18 1:05pm Do you have a support person here with you today? Yes 08/09/18 1:05pm Did patient receive Notice of Privacy Practices? Yes 08/09/18 1:05pm Did patient receive patient rights and responsibilities? Yes 08/09/18 1:05pm 08/12/2018 [facility] Advance Directives Advance Directives Directive Response Recorded Date/Time Does the patient have an advance directive? Yes 03/28/18 6:44pm If yes, is advance directive on file with [facility]? No 03/28/18 6:44pm If not on file with [facility] will patient provide a copy? Yes 03/28/18 6:44pm Do you have a Directive to Physician? Yes 03/28/18 12:06pm Do you have a Medical Power of [employer] Machine Operator? Yes 03/28/18 12:06pm Do you have an out of hospital Do Not Resuscitate Order? Yes 03/28/18 12:06pm Do you have any special needs we should be aware of? U 03/28/18 12:06pm Do you have a support person here with you today? Yes 03/28/18 12:06pm Did patient receive Notice of Privacy Practices? Yes 03/28/18 12:06pm Did patient receive patient rights and responsibilities? Yes 03/28/18 12:06pm 04/02/2018 [facility] Functional Status No Data Provided for This Section
[2018-11-14] MEDS ORDERED: SODIUM CHLORIDE 0.9% 1000ML 1,000 ML IV STA (16:59)
[2018-11-14] MEDS ORDERED: PANTOPRAZOLE 40 MG 10ML VIAL IV STA (16:59)
--- NOTE | 2018-11-14 17:24 | NUR ---
PER DR ALANIS, RAIMUNDO TO ACCESS PORT A CATH
[2018-11-14 17:59] LABS: BASOPHILS % 0.3 % (0.0-1.0); EOSINOPHILS # (AUTO) 0.4 (0.0-0.4); EOSINOPHILS % 4.6 % (0.0-6.0); HEMOGLOBIN 13.3 g/dL (12.0-16.0); LYMPHOCYTES % 25.9 % (18.0-39.1); MEAN CORPUSCULAR HEMOGLOBIN 32.1 pg (28-32); MEAN CORPUSCULAR HGB CONC 34.1 g/dL (31-35); MEAN CORPUSCULAR VOLUME 94.2 fL (81-99); MONOCYTES # (AUTO) 0.4 (0.2-0.8); MONOCYTES % 5.4 % (4.4-11.3); NEUTROPHILS # (AUTO) 4.8 (2.1-6.9); NEUTROPHILS % 63.4 % (38.7-80.0); PLATELET COUNT 248 x10e3/uL (140-360); RED BLOOD COUNT 4.14 x10e6/uL (3.6-5.1); RED CELL DISTRIBUTION WIDTH 12.4 % (11.7-14.4)
[2018-11-14] MEDS ORDERED: ONDANSETRON HCL INJ 2MG/ML 2ML 2 MG/ML VIAL IV STA (18:01)
[2018-11-14] MEDS ORDERED: MORPHINE SULFATE INJ 4 MG/ML INJ 1ML IV STA (18:01)
[2018-11-14 18:06] LABS: INR 2.02; PROTHROMBIN TIME 23.5 seconds (11.9-14.5)
[2018-11-14 18:07] LABS: PARTIAL THROMBOPLASTIN TIME 32.3 seconds (23.8-35.5)
[2018-11-14 18:15] LABS: ALANINE AMINOTRANSFERASE 21 IU/L (0-55); ALBUMIN 3.3 g/dL (3.5-5.0); ALBUMIN/GLOBULIN RATIO 0.8 (0.8-2.0); ALKALINE PHOSPHATASE 79 IU/L (40-150); ANION GAP 13.3 mmol/L (8-16); BLOOD UREA NITROGEN 15 mg/dL (7-26); BUN/CREATININE RATIO 19 (6-25); CALCIUM 8.7 mg/dL (8.4-10.2); CARBON DIOXIDE 23 mmol/L (22-29); CHLORIDE 105 mmol/L (98-107); CREATINE KINASE 73 IU/L (29-168); CREATININE, SERUM 0.81 mg/dL (0.57-1.11); EST GLOMERULAR FILTRATION RATE > 60 ML/MIN (60-); GLUCOSE 141 mg/dL (74-118); LIPASE 10 U/L (8-78); POTASSIUM 3.3 mmol/L (3.5-5.1); SODIUM 138 mmol/L (136-145)
--- NOTE | 2018-11-14 19:10 | Diagnostic Imaging Report ---
A single frontal view of the chest. HISTORY: Stomach pain, nausea, vomiting, diarrhea, epigastric and left lower quadrant pain COMPARISON: Chest radiograph August 10, 2018. DISCUSSION: Portable technique, limits sensitivity of the exam. Soft tissue attenuation partially limits sensitivity of the exam. Tubes/Lines: Unchanged appearance of the left-sided chest port. Lungs and pleura: Improved aeration of the lungs. No evidence of a consolidative pneumonia or pulmonary alveolar edema. No definite pleural effusion or pneumothorax is identified. Heart and mediastinum: The cardiomediastinal silhouette appear(s) unremarkable. Bones and soft tissues: Appear unremarkable, given this limited exam. IMPRESSION: No acute radiographic abnormality. Signed by: Dr. Wiliam Estrada D.O., M.M.M. on 11/14/2018 7:07 PM
--- NOTE | 2018-11-14 19:31 | NUR ---
URINE COLLECTED AND SENT OFF TO THE LAB.
--- NOTE | 2018-11-14 19:37 | Diagnostic Imaging Report ---
EXAM: CT of the abdomen and pelvis WITH contrast HISTORY: Abdominal pain, left lower quadrant radiating to epigastric, history of colon cancer and colostomy COMPARISON: CT of the abdomen pelvis March 28, 2018.. TECHNIQUE: The abdomen and pelvis were scanned utilizing a multidetector helical scanner. Coronal and sagittal reformats are provided. PROTOCOL: Routine IV CONTRAST: 100 cc of Isovue-370. ORAL CONTRAST: Water RADIATION DOSE: Total DLP: 619.58 mGy*cm Estimated effective dose: (DLP x 0.015 x size factor) Dose modulation, iterative reconstruction, and/or weight based adjustment of the mA/kV was utilized to reduce the radiation dose to as low as reasonably achievable. COMPLICATIONS: None FINDINGS: THORAX: Bibasilar atelectasis. HEPATOBILIARY: No focal hepatic lesions. Stable appearing focal fat adjacent to the falciform ligament. No intrahepatic biliary ductal dilation. Cholecystectomy. Mild prominence of the common bile duct, compatible with reservoir effect. SPLEEN: No splenomegaly. PANCREAS: No focal masses or ductal dilatation. Diffuse parenchymal atrophy. ADRENALS: No adrenal nodules. KIDNEYS/URETERS: No hydronephrosis, stones, or solid mass lesions. PELVIC ORGANS/BLADDER: The urinary bladder is partially decompressed. PERITONEUM/RETROPERITONEUM: No free air or fluid. LYMPH NODES: No lymphadenopathy. VESSELS: Diffuse scattered atherosclerotic vascular calcifications. GI TRACT: No distention or wall thickening. Scattered diverticula along the sigmoid colon without wall thickening or inflammatory change. Radiopaque suture near the junction of the descending and sigmoid colon. BONES AND SOFT TISSUE: No bony destructive lesions. No soft tissue abnormalities. Surgical clips along the right pelvic sidewall unchanged. IMPRESSION: 1. No acute CT abnormality. 2. No significant interval change. Signed by: Dr. Wiliam Estrada D.O., M.M.M. on 11/14/2018 7:34 PM
[2018-11-14 19:50] LABS: BILIRUBIN,URINE NEGATIVE (NEGATIVE); CLARITY,URINE CLEAR (CLEAR); COLOR,URINE YELLOW (YELLOW); KETONES,URINE NEGATIVE (NEGATIVE); LEUKOCYTE ESTERASE ,URINE NEGATIVE (NEGATIVE); NITRITE,URINE NEGATIVE (NEGATIVE); PROTEIN,URINE DIPSTICK NEGATIVE (NEGATIVE); URINE UROBILINOGEN 0.2 mg/dL (0.2 - 1)
[2018-11-14 20:05] LABS: BACTERIA,URINE FEW /HPF; RBC,URINE 0-5 /HPF (0-5)
[2018-11-14 20:06] LABS: EPITHELIAL CELLS,URINE MODERATE /LPF
[2018-11-14 21:15] VITALS: BP 122/75
== END 2018-11-14 21:42 | disposition home or self-care (01) ==
LOC: ER 16:46
DX: R10.32 Left lower quadrant pain (principal); R11.2 Nausea with vomiting, unspecified; R19.7 Diarrhea, unspecified; I10 Essential (primary) hypertension; E11.9 Type 2 diabetes mellitus without complications; J44.9 Chronic obstructive pulmonary disease, unspecified; I25.2 Old myocardial infarction; Z95.5 Presence of coronary angioplasty implant and graft; Z85.038 Personal history of other malignant neoplasm of large intestine
CPT/HCPCS: 36415; 71045; 74177; 80053; 81001; 82550; 82553; 83690; 84484; 85025; 85610; 85730; 86850; 86900; 87086; 93005; 99284; C9113; J2270; J2405; J7030

== ENCOUNTER 2019-01-21 19:06 | Emergency (ER) | payer MEDICARE ==
[~2019-01-21] VITALS: Ht 312.4 cm; Wt 83.5 kg
[2019-01-21] MEDS ORDERED: MORPHINE SULFATE 2 MG/ML SYR 1ML IV NR ×2 (19:30→21:30)
[2019-01-21] MEDS ORDERED: ONDANSETRON HCL INJ 2MG/ML 2ML 2 MG/ML VIAL IV NR (19:30)
[2019-01-21] MEDS ORDERED: SODIUM CHLORIDE 0.9% 1000ML 1,000 ML IV ONE (19:30)
[2019-01-21] MEDS ORDERED: DIATRIZOATE MEGL/DIATRIZOA SOD 30 ML BTL PO ONE (19:35)
[2019-01-21 21:10] LABS: BILIRUBIN,URINE NEGATIVE (NEGATIVE); CLARITY,URINE SL CLOUDY (CLEAR); COLOR,URINE YELLOW (YELLOW); KETONES,URINE NEGATIVE (NEGATIVE); LEUKOCYTE ESTERASE ,URINE NEGATIVE (NEGATIVE); NITRITE,URINE NEGATIVE (NEGATIVE); PROTEIN,URINE DIPSTICK NEGATIVE (NEGATIVE); URINE UROBILINOGEN 0.2 mg/dL (0.2 - 1)
[2019-01-21 21:21] LABS: BASOPHILS # (AUTO) 0.1 (0.0-0.1); BASOPHILS % 0.6 % (0.0-1.0); EOSINOPHILS # (AUTO) 0.5 (0.0-0.4); EOSINOPHILS % 4.3 % (0.0-6.0); HEMOGLOBIN 12.9 g/dL (12.0-16.0); LYMPHOCYTES # (AUTO) 3.9 (1.0-3.2); MEAN CORPUSCULAR HEMOGLOBIN 31.2 pg (28-32); MEAN CORPUSCULAR HGB CONC 33.1 g/dL (31-35); MEAN CORPUSCULAR VOLUME 94.4 fL (81-99); MONOCYTES # (AUTO) 0.6 (0.2-0.8); MONOCYTES % 5.7 % (4.4-11.3); NEUTROPHILS # (AUTO) 5.8 (2.1-6.9); NEUTROPHILS % 53.2 % (38.7-80.0); PLATELET COUNT 259 x10e3/uL (140-360); RED BLOOD COUNT 4.13 x10e6/uL (3.6-5.1); RED CELL DISTRIBUTION WIDTH 12.4 % (11.7-14.4)
[2019-01-21 21:31] LABS: BACTERIA,URINE FEW /HPF
[2019-01-21] MEDS ORDERED: SODIUM CHLORIDE 0.9% 1000ML 1,000 ML ONE (21:38)
[2019-01-21 21:40] LABS: ALANINE AMINOTRANSFERASE 12 IU/L (0-55); ALBUMIN 3.7 g/dL (3.5-5.0); ALBUMIN/GLOBULIN RATIO 0.9 (0.8-2.0); ALKALINE PHOSPHATASE 75 IU/L (40-150); ANION GAP 13.7 mmol/L (8-16); BLOOD UREA NITROGEN 15 mg/dL (7-26); BUN/CREATININE RATIO 19 (6-25); CALCIUM 9.3 mg/dL (8.4-10.2); CARBON DIOXIDE 23 mmol/L (22-29); CHLORIDE 105 mmol/L (98-107); CREATININE, SERUM 0.78 mg/dL (0.57-1.11); EST GLOMERULAR FILTRATION RATE > 60 ML/MIN (60-); GLUCOSE 137 mg/dL (74-118); POTASSIUM 3.7 mmol/L (3.5-5.1); SODIUM 138 mmol/L (136-145)
[2019-01-21] MEDS ORDERED: SODIUM CHLORIDE 0.9% 1000ML 1,000 ML IV STA (21:40)
[2019-01-21] MEDS ORDERED: ONDANSETRON HCL INJ 2MG/ML 2ML 2 MG/ML VIAL IV STA (21:40)
[2019-01-21 21:51] LABS: AMYLASE 33 U/L (25-125); LIPASE 13 U/L (8-78)
--- NOTE | 2019-01-21 22:23 | Diagnostic Imaging Report ---
EXAM: CT Abdomen and Pelvis WITH contrast INDICATION: ^ABD PAIN WITH VOMITING, H/O COLON CANCER ^Y COMPARISON: CT dated 11/14/2018 TECHNIQUE: Abdomen and pelvis were scanned utilizing a multidetector helical scanner from the lung base to the pubic symphysis after administration of IV contrast. Coronal and sagittal reformations were obtained. Dose modulation, iterative reconstruction, and/or weight based adjustment of the mA/kV was utilized to reduce the radiation dose to as low as reasonably achievable. Routine protocol was performed. Scan was performed when during portal venous phase. IV CONTRAST: 100 mL of Isovue-370 ORAL CONTRAST: Gastroview COMPLICATIONS: None RADIATION DOSE: Total DLP: 606.48 mGy*cm Estimated effective dose: (DLP x 0.015 x size factor) mSv CTDIvol has been reviewed. It is below the limits set by the Radiation Protocol Committee (RPC). FINDINGS: LINES and TUBES: None. LOWER THORAX: Unchanged 3 mm groundglass right lower lobe nodule (series 2, image 4). HEPATOBILIARY: Hepatic steatosis. No focal hepatic lesions. No biliary ductal dilation. GALLBLADDER: Cholecystectomy. SPLEEN: No splenomegaly. PANCREAS: No focal masses or ductal dilatation. ADRENALS: No adrenal nodules KIDNEYS/URETERS: Kidneys enhance symmetrically. No hydronephrosis. No cystic or solid mass lesions. No stones. GI TRACT: No abnormal distention, wall thickening, or evidence of bowel obstruction. Appendix is not visualized. Sigmoid anastomosis in left lower quadrant is intact. Scattered colonic diverticula without evidence of diverticulitis. PELVIC ORGANS/BLADDER: Hysterectomy. Bladder is unremarkable. Unchanged metallic density along the right pelvis. LYMPH NODES: No lymphadenopathy. VESSELS: Unremarkable. PERITONEUM / RETROPERITONEUM: No free air or fluid. BONES: Unremarkable. SOFT TISSUES: Small fat-containing umbilical hernia. IMPRESSION: 1. No acute inflammatory process in the abdomen/pelvis. 2. Hepatic steatosis. Signed by: Dr. Satya Sesay MD on 01/21/2019 10:19 PM
[2019-01-21] MEDS ORDERED: IOPAMIDOL 370 MG/ML 200 ML INFUS..BTL INJ ONE (22:31)
[2019-01-21] MEDS ORDERED: SODIUM CHLORIDE 0.9% 50ML 50 ML ONE (22:31)
[2019-01-21 23:02] VITALS: BP 124/59
[2019-01-21] MEDS ORDERED: HEPARIN SOD (PORCINE) 1000 UNIT/ML SDV ONE (23:09)
== END 2019-01-21 23:08 | disposition home or self-care (01) ==
LOC: ER 19:06
DX: R10.84 Generalized abdominal pain (principal); R14.0 Abdominal distension (gaseous); R11.2 Nausea with vomiting, unspecified; R19.7 Diarrhea, unspecified; K76.0 Fatty (change of) liver, not elsewhere classified; I10 Essential (primary) hypertension; E11.9 Type 2 diabetes mellitus without complications; J44.9 Chronic obstructive pulmonary disease, unspecified; I50.9 Heart failure, unspecified; I25.2 Old myocardial infarction; Z85.038 Personal history of other malignant neoplasm of large intestine
CPT/HCPCS: 36415; 74177; 80053; 81001; 82150; 83690; 85025; 99284; J1642; J1644; J2270; J2405; J7030; Q9967

== ENCOUNTER 2019-06-15 22:20 | Emergency (ER) | payer MEDICARE ==
[~2019-06-15] VITALS: Ht 160 cm; Wt 63.5 kg
--- NOTE | 2019-06-15 23:40 | Diagnostic Imaging Report ---
Exam: Left shoulder radiographs-2 views; left wrist radiographs-3 views; left knee radiographs-3 views History: Fall. Comparison: None. Findings: Left shoulder: No evidence of acute fracture, malalignment, or soft tissue abnormality. Moderate to severe degenerative changes of the AC joint and moderate degenerative changes of the glenohumeral joint. Left wrist: No evidence of acute fracture or malalignment. There is soft tissue edema in the proximal hand. Moderate radiocarpal and mild first carpometacarpal joint degenerative changes. Left knee: No evidence of acute fracture or malalignment. Mild tricompartmental degenerative changes. Quadriceps enthesopathy. No suprapatellar joint effusion. Impression: No acute osseous abnormality. Degenerative changes as above. Signed by: Dr. Tatiana Butler MD on 06/15/2019 11:37 PM
--- NOTE | 2019-06-15 23:41 | Diagnostic Imaging Report ---
EXAMINATION: Head CT without contrast. HISTORY:Status post fall. COMPARISON:Report of CT brain from 05/04/2016, prior images not available for comparison at the time of interpretation. TECHNIQUE: Multidetector axial images were obtained from the foramen magnum to the vertex without contrast. The images were reconstructed using brain and bone algorithms. Thin section brain images were reformatted into coronal and sagittal planes. Dose modulation, iterative reconstruction, and/or weight based adjustment of the mA/kV was utilized to reduce the radiation dose to as low as reasonably achievable. Intravenous contrast: None IMAGE QUALITY: Acceptable. FINDINGS: Skull/scalp: No lytic or blastic. lesions. No surgical changes. Parenchyma: Nonspecific few, scattered supratentorial white matter hypodensity are likely related to small vessel ischemic changes. No acute hemorrhage, mass or acute major vascular territorial infarct. Arteries: No density suggestive of thrombosis. Dural sinuses: No abnormal density suggestive of thrombosis. Ventricles: Mild compensated dilatation due to volume loss. No hydrocephalus. Extra-axial spaces: No abnormal density. Brain volume: Normal for age. Craniocervical junction: No mass, Chiari malformation, or basilar invagination. Sella: No mass. Paranasal/mastoid sinuses: Mild mucosal thickening in bilateral ethmoid sinuses. IMPRESSION: No acute intracranial abnormality. Mild supratentorial white matter microvascular ischemic changes. Mild generalized cerebral volume loss. Signed by: Dr. Shanika Pacheco M.D. on 06/15/2019 11:38 PM
--- NOTE | 2019-06-15 23:46 | Diagnostic Imaging Report ---
EXAMINATION: RIBS UNILAT W/CXR INDICATION: Fall, left rib pain. COMPARISON: Chest radiograph 11/14/2018. FINDINGS: TUBES and LINES: Left-sided chest port with catheter tip terminating in the SVC. LUNGS: Lungs are well inflated. There is no evidence of pneumonia or pulmonary edema. PLEURA: No pleural effusion or pneumothorax. HEART AND MEDIASTINUM: The cardiomediastinal silhouette is unremarkable. BONES AND SOFT TISSUES: No acute osseous lesion. Soft tissues are unremarkable. No evidence of left-sided rib fracture. UPPER ABDOMEN: No free air under the diaphragm. IMPRESSION: No acute thoracic abnormality. No evidence of left-sided rib fracture. Signed by: Dr. Tatiana Butler MD on 06/15/2019 11:43 PM
--- NOTE | 2019-06-15 23:52 | Diagnostic Imaging Report ---
History: Status post fall in severe pain. Comparison studies: None Technique: Axial images were obtained through the cervical region.. Coronal and sagittal images reconstructed from the axial data. Dose modulation, iterative reconstruction, and/or weight based adjustment of the mA/kV was utilized to reduce the radiation dose to as low as reasonably achievable. Intravenous contrast: None Findings: Fractures: None. Soft tissue injuries: None. Atlantoaxial articulation: Intact. Alignment: Loss of normal cervical lordosis is either positional or due to muscle spasm. No scoliosis. No subluxation. Cervicomedullary junction: No abnormalities. The foramen magnum is patent. Soft tissues: No abnormalities. Vertebrae: No fractures, infection or neoplasm. Degenerative changes: C5-C6: Mild degenerative disc disease. Posterior disc osteophyte complex results in mild canal stenosis. Moderate bilateral foraminal stenosis due to uncovertebral arthrosis. C6-C7: Mild right foraminal stenosis due to uncovertebral arthrosis.. IMPRESSION: 1. No acute cervical spine fracture or dislocation. Loss of normal cervical lordosis is either positional or due to muscle spasm. 2. Ligament, spinal cord and or vascular abnormalities cannot be excluded on the basis of this examination. 3. Mild cervical spondylosis as detailed above. Signed by: Dr. Shanika Pacheco M.D. on 06/15/2019 11:49 PM
[2019-06-16 00:03] VITALS: BP 129/73
== END 2019-06-16 00:05 | disposition home or self-care (01) ==
LOC: ER 22:20
DX: S00.83XA Contusion of other part of head, initial encounter (principal); S13.4XXA Sprain of ligaments of cervical spine, initial encounter; S40.012A Contusion of left shoulder, initial encounter; S56.212A Strain of other flexor muscle, fascia and tendon at forearm level, left arm, initial encounter; S50.02XA Contusion of left elbow, initial encounter; S60.212A Contusion of left wrist, initial encounter; S80.02XA Contusion of left knee, initial encounter; W07.XXXA Fall from chair, initial encounter; Y92.008 Other place in unspecified non-institutional (private) residence as the place of occurrence of the external cause; I10 Essential (primary) hypertension; E11.9 Type 2 diabetes mellitus without complications; J44.9 Chronic obstructive pulmonary disease, unspecified; I50.9 Heart failure, unspecified; Z79.01 Long term (current) use of anticoagulants; I25.2 Old myocardial infarction; Z85.038 Personal history of other malignant neoplasm of large intestine; Z95.5 Presence of coronary angioplasty implant and graft
CPT/HCPCS: 70450; 71101; 72125; 99283

== ENCOUNTER 2019-08-18 15:06 | Inpatient (IN) | payer MEDICARE, OTHER ==
[~2019-08-18] VITALS: Ht 160 cm; Wt 83.1 kg
[2019-08-18] MEDS ORDERED: ONDANSETRON HCL INJ 2MG/ML 2ML 2 MG/ML VIAL IV STA (15:19)
[2019-08-18] MEDS ORDERED: PANTOPRAZOLE 40 MG 10ML VIAL IV STA (15:19)
[2019-08-18] MEDS ORDERED: SODIUM CHLORIDE 0.9% 1000ML 1,000 ML IV STA (15:19)
[2019-08-18] MEDS ORDERED: MORPHINE SULFATE 2 MG/ML SYR 1ML IV STA (15:19)
[2019-08-18 15:56] LABS: BASOPHILS % 0.5 % (0.0-1.0); EOSINOPHILS # (AUTO) 0.4 (0.0-0.4); HEMATOCRIT 41.6 % (34.2-44.1); HEMOGLOBIN 13.6 g/dL (12.0-16.0); LYMPHOCYTES # (AUTO) 3.2 (1.0-3.2); LYMPHOCYTES % 36.3 % (18.0-39.1); MEAN CORPUSCULAR HEMOGLOBIN 30.8 pg (28-32); MEAN CORPUSCULAR HGB CONC 32.7 g/dL (31-35); MEAN CORPUSCULAR VOLUME 94.3 fL (81-99); MONOCYTES # (AUTO) 0.4 (0.2-0.8); MONOCYTES % 4.4 % (4.4-11.3); NEUTROPHILS # (AUTO) 4.8 (2.1-6.9); NEUTROPHILS % 54.6 % (38.7-80.0); PLATELET COUNT 264 x10e3/uL (140-360); RED BLOOD COUNT 4.41 x10e6/uL (3.6-5.1); RED CELL DISTRIBUTION WIDTH 12.7 % (11.7-14.4)
[2019-08-18 15:57] LABS: BILIRUBIN,URINE NEGATIVE (NEGATIVE); CLARITY,URINE SL CLOUDY (CLEAR); COLOR,URINE YELLOW (YELLOW); KETONES,URINE NEGATIVE (NEGATIVE); LEUKOCYTE ESTERASE ,URINE NEGATIVE (NEGATIVE); NITRITE,URINE NEGATIVE (NEGATIVE); PROTEIN,URINE DIPSTICK NEGATIVE (NEGATIVE); URINE UROBILINOGEN 0.2 mg/dL (0.2 - 1)
[2019-08-18 16:07] LABS: PARTIAL THROMBOPLASTIN TIME 28.1 seconds (23.8-35.5)
[2019-08-18 16:09] LABS: BACTERIA,URINE FEW /HPF; EPITHELIAL CELLS,URINE MANY /LPF
[2019-08-18 16:10] LABS: INR 0.96; PROTHROMBIN TIME 13.3 seconds (11.9-14.5)
[2019-08-18 16:15] LABS: ALANINE AMINOTRANSFERASE 25 IU/L (0-55); ALBUMIN 3.5 g/dL (3.5-5.0); ALBUMIN/GLOBULIN RATIO 0.8 (0.8-2.0); ALKALINE PHOSPHATASE 95 IU/L (40-150); AMYLASE 28 U/L (25-125); ANION GAP 13.4 mmol/L (8-16); BLOOD UREA NITROGEN 15 mg/dL (7-26); BUN/CREATININE RATIO 15 (6-25); CALCIUM 9.2 mg/dL (8.4-10.2); CARBON DIOXIDE 23 mmol/L (22-29); CHLORIDE 104 mmol/L (98-107); CREATINE KINASE 56 IU/L (29-168); CREATININE, SERUM 0.97 mg/dL (0.57-1.11); EST GLOMERULAR FILTRATION RATE 58 ML/MIN (60-); GLUCOSE 284 mg/dL (74-118); LIPASE 20 U/L (8-78); MAGNESIUM 1.9 MG/DL (1.3-2.1); POTASSIUM 3.4 mmol/L (3.5-5.1); SODIUM 137 mmol/L (136-145)
[2019-08-18] MEDS ORDERED: IOPAMIDOL 370 MG/ML 200 ML INFUS..BTL INJ ONE (17:36)
[2019-08-18] MEDS ORDERED: SODIUM CHLORIDE 0.9% 50ML 50 ML ONE (17:36)
--- NOTE | 2019-08-18 17:46 | Diagnostic Imaging Report ---
History:Headaches Comparison studies: None Technique: Axial images were obtained from the skull base to the vertex. Coronal and sagittal images reconstructed from the axial data. Dose modulation, iterative reconstruction, and/or weight based adjustment of the mA/kV was utilized to reduce the radiation dose to as low as reasonably achievable. Intravenous contrast: None Findings: Scalp/skull: No abnormalities. Extra-axial spaces: No masses. No fluid collections. Brain sulci: Appropriate for age Ventricles: Normal in size and configuration. No hydrocephalus. Parenchyma: No abnormal densities No masses, hemorrhage, acute or chronic cortical vascular insults. Sellar/suprasellar region: No abnormalities. Craniocervical junction: Patent foramen magnum. No Chiari one malformation. Incidental findings: Subtle atherosclerotic calcifications in the carotid siphons. Subtle mucosal thickening in the paranasal sinuses. Impression: No intracranial abnormalities. Signed by: Dr. Froilan Bell M.D. on 08/18/2019 5:43 PM
--- NOTE | 2019-08-18 17:56 | Emergency Department Note ---
History of Present Illnes History of Present Illness Chief Complaint: Chest Pain History of Present Illness This is a 64 year old female PATIENT IN FROM HOME WITH COMPLAINTS OF SHORTNESS OF BREATH, ABDOMINAL PAIN, NAUSEA, VOMITING, AND CHEST PAIN SINCE YESTERDAY, AND ALSO C/O HEADACHE AND WEAKNESS. PATIENT ALERT AND ORIENTED, RESP EVEN AND NONLABORED, APPEARS IN NO DISTRESS, AMBULATORY WITHOUT ASSISTANCE. RATES PAIN 10/10 DURING TRIAGE. Historian: Patient Arrival Mode: Car [employer] Supervisor Required: No Onset (how long ago): day(s) (2) Location: CHEST Quality: PRESSURE Radiation: Reports extremity (RIGHT ARM AND NECK) Severity: moderate Onset quality: gradual Timing of current episode: intermittent Progression: waxing and waning Context: Denies recent illness Relieving factors: none Exacerbating factors: none Associated symptoms: Reports chest pain, Reports headaches, Reports nausea/v omiting, Reports shortness of breath (ASSOC WITH CP), Reports weakness; Denies cough Treatments prior to arrival: none Past Medical/Family History Physician Review I have reviewed the patient's past medical and family history. Any updates have been documented here. Past Medical History Recent Fever: No Clinical Suspicion of Infectio: Yes New/Unexplained Change in Ment: No Past Medical History: Hypertension, Diabetes, COPD, CHF, NM, Cancer, Seizure Disorder, Migraines, Anemia, DVT/PE Other Medical History: COLON CA Past Surgical History: PCI, Colon Resection Other Surgery: COLON PORT (MULTIPLE) CARDIAC STENTS-Per Dr. Blue's report no stent visualized when angiogram performed. HX OF COLOSTOMY Social History Smoking Cessation: Former smoker Counseling Performed: No Alcohol Use: None Any Illegal Drug Use: No TB Exposure/Symptoms: No Physically hurt or threatened: No Family History Family history of heart diseas: No Other Last Tetanus: UNKNOWN Review of Systems Review of Systems Constitutional: Reports as per HPI, Reports weakness EENTM: Reports no symptoms Cardiovascular: Reports as per HPI, Reports chest pain Respiratory: Reports as per HPI, Reports dyspnea (ASSOC WITH CP) Gastrointestinal: Reports abdominal pain, Reports nausea, Reports vomiting Genitourinary: Reports no symptoms Musculoskeletal: Reports no symptoms Integumentary: Reports no symptoms Neurological: Reports headache, Reports weakness Psychological: Reports no symptoms Endocrine: Reports no symptoms Hematological/Lymphatic: Reports no symptoms Physical Exam Related Data Allergies: Coded Allergies: ceftriaxone (Verified Allergy, Mild, HIVES, 08/18/19) prochlorperazine (Verified Allergy, Mild, BLACK OUTS, 08/18/15) Triage Vital Signs Vital Signs Date Time Temp Pulse Resp B/P (MAP) Pulse Ox O2 Delivery O2 Flow Rate FiO2 08/18/19 15:09 99.3 85 20 145/80 98 Vital signs reviewed: Yes Physical Exam CONSTITUTIONAL Constitutional: Present well-developed, Present well-nourished, Present obese HENT HENT: Present normocephalic, Present atraumatic, Present oropharynx clear/moist, Present nose normal HENT L/R: Present left ext ear normal, Present right ext ear normal EYES Eyes: Reports PERRL, Reports conjunctivae normal NECK Neck: Present ROM normal PULMONARY Pulmonary: Present effort normal, Present breath sounds normal CARDIOVASCULAR Cardiovascular: Present regular rhythm, Present heart sounds normal, Present normal rate, Present murmur (1/6 SYS MURMUR), Present other (SOME REPRODUCIBLE TENDERNESS ANTERIOR CHEST WALL) GASTROINTESTINAL Abdominal: Present soft, Present bowel sounds normal, Present tender (MILD RAUL AND LEFT SIDED ABD TENDERNESS WITHOUT R/G) GENITOURINARY Genitourinary: Present exam deferred SKIN Skin: Present warm, Present dry MUSCULOSKELETAL Musculoskeletal: Present ROM normal NEUROLOGICAL Neurological: Present alert, Present oriented x 3, Present no gross motor or sensory deficits PSYCHOLOGICAL Psychological: Present mood/affect normal, Present judgement normal Results Laboratory Result Diagram: 08/18/19 1516 08/18/19 1516 Laboratory Laboratory Tests Test 08/18/19 15:16 White Blood Count 8.73 x10e3/uL (4.8-10.8) Red Blood Count 4.41 x10e6/uL (3.6-5.1) Hemoglobin 13.6 g/dL (12.0-16.0) Hematocrit 41.6 % (34.2-44.1) Mean Corpuscular Volume 94.3 fL (81-99) Mean Corpuscular Hemoglobin 30.8 pg (28-32) Mean Corpuscular Hemoglobin Concent 32.7 g/dL (31-35) Red Cell Distribution Width 12.7 % (11.7-14.4) Platelet Count 264 x10e3/uL (140-360) Neutrophils (%) (Auto) 54.6 % (38.7-80.0) Lymphocytes (%) (Auto) 36.3 % (18.0-39.1) Monocytes (%) (Auto) 4.4 % (4.4-11.3) Eosinophils (%) (Auto) 4.0 % (0.0-6.0) Basophils (%) (Auto) 0.5 % (0.0-1.0) Neutrophils # (Auto) 4.8 (2.1-6.9) Lymphocytes # (Auto) 3.2 (1.0-3.2) Monocytes # (Auto) 0.4 (0.2-0.8) Eosinophils # (Auto) 0.4 (0.0-0.4) Basophils # (Auto) 0.0 (0.0-0.1) Absolute Immature Granulocyte (auto 0.02 x10e3/uL (0-0.1) Prothrombin Time 13.3 seconds (11.9-14.5) Prothromb Time International Ratio 0.96 Activated Partial Thromboplast Time 28.1 seconds (23.8-35.5) Urine Color Yellow (YELLOW) Urine Clarity Sl cloudy (CLEAR) Urine pH 5.5 (5 - 7) Urine Specific [place] 1.030 (1.010-1.025) Urine Protein Negative (NEGATIVE) Urine Glucose (UA) 2+ (NEGATIVE) Urine Ketones Negative (NEGATIVE) Urine Blood Moderate (NEGATIVE) Urine Nitrite Negative (NEGATIVE) Urine Bilirubin Negative (NEGATIVE) Urine Urobilinogen 0.2 mg/dL (0.2 - 1) Urine Leukocyte Esterase Negative (NEGATIVE) Urine RBC 6-10 /HPF (0-5) Urine WBC None /HPF (0-5) Urine Epithelial Cells Many /LPF (NONE) Urine Bacteria Few /HPF (NONE) Sodium Level 137 mmol/L (136-145) Potassium Level 3.4 mmol/L (3.5-5.1) Chloride Level 104 mmol/L (98-107) Carbon Dioxide Level 23 mmol/L (22-29) Anion Gap 13.4 mmol/L (8-16) Blood Urea Nitrogen 15 mg/dL (7-26) Creatinine 0.97 mg/dL (0.57-1.11) Estimat Glomerular Filtration Rate 58 ML/MIN (60-) BUN/Creatinine Ratio 15 (6-25) Glucose Level 284 mg/dL (74-118) Calcium Level 9.2 mg/dL (8.4-10.2) Magnesium Level 1.9 MG/DL (1.3-2.1) Total Bilirubin 0.4 mg/dL (0.2-1.2) Aspartate Amino Transf (AST/SGOT) 18 IU/L (5-34) Alanine Aminotransferase (ALT/SGPT) 25 IU/L (0-55) Alkaline Phosphatase 95 IU/L (40-150) Creatine Kinase 56 IU/L (29-168) Creatine Kinase MB 1.10 ng/mL (0-5.0) Troponin I < 0.001 ng/mL (0-0.300) Total Protein 7.7 g/dL (6.5-8.1) Albumin 3.5 g/dL (3.5-5.0) Globulin 4.2 g/dL (2.3-3.5) Albumin/Globulin Ratio 0.8 (0.8-2.0) Amylase Level 28 U/L (25-125) Lipase 20 U/L (8-78) Lab results reviewed: Yes Imaging Imaging results reviewed: Yes Impressions Procedure: [id number] CT/CT BRAIN WO Exam Date: 08/18/19 Exam Time: 170 REPORT STATUS: Signed History:Headaches Comparison studies: None Technique: Axial images were obtained from the skull base to the vertex. Coronal and sagittal images reconstructed from the axial data. Dose modulation, iterative reconstruction, and/or weight based adjustment of the mA/kV was utilized to reduce the radiation dose to as low as reasonably achievable. Intravenous contrast: None Findings: Scalp/skull: No abnormalities. Extra-axial spaces: No masses. No fluid collections. Brain sulci: Appropriate for age Ventricles: Normal in size and configuration. No hydrocephalus. Parenchyma: No abnormal densities No masses, hemorrhage, acute or chronic cortical vascular insults. Sellar/suprasellar region: No abnormalities. Craniocervical junction: Patent foramen magnum. No Chiari one malformation. Incidental findings: Subtle atherosclerotic calcifications in the carotid siphons. Subtle mucosal thickening in the paranasal sinuses. Impression: No intracranial abnormalities. Signed by: Dr. Froilan Bell M.D. on 08/18/2019 5:43 PM Procedure: [id number] DX/CHEST SINGLE (PORTABLE) Exam Date: 08/18/19 Exam Time: 170 REPORT STATUS: Signed A single frontal view of the chest. HISTORY: Chest pain. COMPARISON: Rib series with chest x-ray dated 06/15/2019. DISCUSSION: Portable technique, limits sensitivity of the exam. Soft tissue attenuation partially limits sensitivity of the exam. Tubes/Lines: Left chest Port-A-Cath with distal tip projected on the cavoatrial junction. Lungs and pleura: Improved aeration of the lungs. No evidence of a consolidative pneumonia or pulmonary alveolar edema. No definite pleural effusion or pneumothorax is identified. Heart and mediastinum: The cardiomediastinal silhouette appear(s) unremarkable. Bones and soft tissues: No acute osseous abnormality. Amorphus density projected in the left axillary region may be overlying artifact. IMPRESSION: No acute thoracic abnormality. Signed by: Dr. Raffy Lares M.D. on 08/18/2019 5:56 PM Procedure: [id number] CT/CT ABDOMEN/PELVIS W Exam Date: 08/18/19 Exam Time: 1709 REPORT STATUS: Signed EXAM: CT Abdomen and Pelvis WITH contrast INDICATION: Abdominal pain, nausea and vomiting. COMPARISON: 01/21/2019. TECHNIQUE: Abdomen and pelvis were scanned utilizing a multidetector helical scanner from the lung base to the pubic symphysis after administration of IV contrast. Coronal and sagittal reformations were obtained. Routine protocol was performed. Scan was performed when during portal venous phase. IV CONTRAST: 150 mL of Omnipaque 300 ORAL CONTRAST: Water RADIATION DOSE: Total DLP: 1722.84 mGy*cm Estimated effective dose: (DLP x 0.015 x size factor) mSv COMPLICATIONS: None FINDINGS: LINES and TUBES: None. LOWER THORAX: Left basilar subsegmental atelectasis. HEPATOBILIARY: The liver is diffuse hypodense compared to the spleen, consistent with diffuse hepatic diffuse hepatic steatosis. No focal hepatic lesions. No biliary ductal dilation. GALLBLADDER: No radio-opaque stones or sludge. No wall thickening. SPLEEN: No splenomegaly. PANCREAS: No focal masses or ductal dilatation. ADRENALS: No adrenal nodules KIDNEYS/URETERS: Kidneys enhance symmetrically. No hydronephrosis. No cystic or solid mass lesions. No stones. GI TRACT: No abnormal distention, wall thickening, or evidence of bowel obstruction. Moderate volume of stool within the rectum. Anastomotic line in the region of the rectosigmoid junction appears intact although evaluation is limited to lack of contrast. Scattered descending colon diverticula without CT evidence of acute diverticulitis. Appendix is not identified. PELVIC ORGANS/BLADDER: The uterus is absent. Surgical clips in the right pelvic sidewall. LYMPH NODES: No lymphadenopathy. VESSELS: There is mild atherosclerotic disease in the aorta and major arterial branches. PERITONEUM / RETROPERITONEUM: No free air or fluid. BONES: Lower thoracic DISH. SOFT TISSUES: Small for containing left inguinal hernia. IMPRESSION: 1. No acute abdominal pelvic abnormality. 2. Hepatic steatosis. Signed by: Dr. Raffy Lares M.D. on 08/18/2019 6:04 PM Procedures 12 Lead ECG Interpretation ECG Interpretation : ECG: ECG 1 [employer] Supervisor: Interpreted by ED physician Date: Aug 18, 2019 Time: 15:12 Rhythm: sinus rhythm Rate: normal (81) QRS axis: normal ST segments normal: Yes T waves flattening: I, II, III, aVL, aVF, V3, V4, V5 Clinical Impression: abnormal ECG Assessment & Plan Medical Decision Making MDM CBC, CHEM'S, CARDIACS, ECG, CARA/LIPASE, UA/CX, CXR, CT ABD/PELVIS, CT BRAIN - R/O ANEMIA, ELECTROLYTE ABNL, STEMI/NSTEMI, PANCREATITIS, BOWEL OBSTR, CEREBRAL BLEED Reassessment Reassessment ADMIT OBS TELE - SPOKE WITH DR Fernanda JONES Assessment & Plan Final Impression: (1) Chest pain (2) Abdominal pain Depart Disposition: ADMITTED Last Vital Signs Date Time Temp Pulse Resp B/P (MAP) Pulse Ox O2 Delivery O2 Flow Rate FiO2 08/18/19 15:09 99.3 85 20 145/80 98 Home Meds Active Scripts Ondansetron Hcl* (ZOFRAN*) 4 Mg Tablet, 4 MG PO Q4HR PRN for nausea/vomiting, #40 Prov:NIKKO OCONNOR MD 04/01/18 Reported Medications Pantoprazole Sodium* (PROTONIX) 40 Mg Tablet., 40 MG PO DAILY, TAB 12/28/17 Zolpidem Tartrate (AMBIEN) 10 Mg Tablet, 10 MG PO HS PRN for INSOMNIA, #30 TAB 12/28/17 Paroxetine Hcl (PAROXETINE HCL) 20 Mg Tablet, 20 MG PO DAILY, #30 TAB 12/28/17 Magnesium Oxide (MAGNESIUM OXIDE) 400 Mg Tablet, 400 MG PO DAILY, TAB 12/28/17 Phenazopyridine Hcl (PHENAZOPYRIDINE HCL) 100 Mg Tablet, 100 MG PO AC, TAB 12/28/17 Hydrocodone Bit/Acetaminophen (HYDROCODON-ACETAMINOPHN 10-325) 1 Each Tablet, 1 EA PO Q4HR PRN for PAIN 12/28/17 Insulin Glargine (LANTUS) 100 Units/Ml Ml, UNITS SC UD SLIDING SCALE PRN DAILY/HS 10/15/15 Sertraline Hcl (ZOLOFT) 50 Mg Tablet, 50 MG PO DAILY, #30 TAB 11/02/14 Warfarin Sodium (COUMADIN) 10 Mg Tablet, 10 MG PO DAILY 01/30/12 Phenobarbital (PHENOBARBITAL) 60 Mg Tablet, 90 MG PO PM 01/30/12 Phenobarbital (PHENOBARBITAL) 30 Mg Tablet, 30 MG PO AM 01/30/12 Phenytoin Sodium Extended (DILANTIN) 100 Mg Capsule, 300 MG PO HS 01/30/12 Phenytoin Sodium Extended (DILANTIN) 100 Mg Capsule, 100 MG PO DAILY 01/30/12 Medications in the ED Pantoprazole Sodium 40 mg ONCE STAT IV ; Start 08/18/19 at 15:19; Stop 08/18/19 at 16:00; Status DC Morphine Sulfate 4 mg ONCE STAT IV ; Start 08/18/19 at 15:19; Stop 08/18/19 at 15:59; Status DC Ondansetron HCl 4 mg ONCE STAT IV ; Start 08/18/19 at 15:19; Stop 08/18/19 at 15:59; Status DC Sodium Chloride 1,000 ml @ 0 mls/hr Q0M STAT IV ; Start 08/18/19 at 15:19; Stop 08/18/19 at 15:24; Status DC Sodium Chloride 50 ml @ ud STK-MED ONCE .ROUTE ; Start 08/18/19 at 17:36; Stop 08/18/19 at 17:30; Status DC Iopamidol 74,000 mg STK-MED ONCE INJ ; Start 08/18/19 at 17:36; Stop 08/18/19 at 17:30; Status DC TONYA ALANIS MD Aug 18, 2019 17:56
--- NOTE | 2019-08-18 18:00 | Diagnostic Imaging Report ---
A single frontal view of the chest. HISTORY: Chest pain. COMPARISON: Rib series with chest x-ray dated 06/15/2019. DISCUSSION: Portable technique, limits sensitivity of the exam. Soft tissue attenuation partially limits sensitivity of the exam. Tubes/Lines: Left chest Port-A-Cath with distal tip projected on the cavoatrial junction. Lungs and pleura: Improved aeration of the lungs. No evidence of a consolidative pneumonia or pulmonary alveolar edema. No definite pleural effusion or pneumothorax is identified. Heart and mediastinum: The cardiomediastinal silhouette appear(s) unremarkable. Bones and soft tissues: No acute osseous abnormality. Amorphus density projected in the left axillary region may be overlying artifact. IMPRESSION: No acute thoracic abnormality. Signed by: Dr. Raffy Lares M.D. on 08/18/2019 5:56 PM
--- NOTE | 2019-08-18 18:08 | Diagnostic Imaging Report ---
EXAM: CT Abdomen and Pelvis WITH contrast INDICATION: Abdominal pain, nausea and vomiting. COMPARISON: 01/21/2019. TECHNIQUE: Abdomen and pelvis were scanned utilizing a multidetector helical scanner from the lung base to the pubic symphysis after administration of IV contrast. Coronal and sagittal reformations were obtained. Routine protocol was performed. Scan was performed when during portal venous phase. IV CONTRAST: 150 mL of Omnipaque 300 ORAL CONTRAST: Water RADIATION DOSE: Total DLP: 1722.84 mGy*cm Estimated effective dose: (DLP x 0.015 x size factor) mSv COMPLICATIONS: None FINDINGS: LINES and TUBES: None. LOWER THORAX: Left basilar subsegmental atelectasis. HEPATOBILIARY: The liver is diffuse hypodense compared to the spleen, consistent with diffuse hepatic diffuse hepatic steatosis. No focal hepatic lesions. No biliary ductal dilation. GALLBLADDER: No radio-opaque stones or sludge. No wall thickening. SPLEEN: No splenomegaly. PANCREAS: No focal masses or ductal dilatation. ADRENALS: No adrenal nodules KIDNEYS/URETERS: Kidneys enhance symmetrically. No hydronephrosis. No cystic or solid mass lesions. No stones. GI TRACT: No abnormal distention, wall thickening, or evidence of bowel obstruction. Moderate volume of stool within the rectum. Anastomotic line in the region of the rectosigmoid junction appears intact although evaluation is limited to lack of contrast. Scattered descending colon diverticula without CT evidence of acute diverticulitis. Appendix is not identified. PELVIC ORGANS/BLADDER: The uterus is absent. Surgical clips in the right pelvic sidewall. LYMPH NODES: No lymphadenopathy. VESSELS: There is mild atherosclerotic disease in the aorta and major arterial branches. PERITONEUM / RETROPERITONEUM: No free air or fluid. BONES: Lower thoracic DISH. SOFT TISSUES: Small for containing left inguinal hernia. IMPRESSION: 1. No acute abdominal pelvic abnormality. 2. Hepatic steatosis. Signed by: Dr. Raffy Lares M.D. on 08/18/2019 6:04 PM
[2019-08-18] MEDS ORDERED: NITROGLYCERIN 0.4 MG SUBL SL PRN (18:30)
[2019-08-18] MEDS ORDERED: DEXTROSE 50% SYRINGE 50 ML IV PRN (18:30)
[2019-08-18] MEDS: SODIUM CHLORIDE 0.9% 1000ML 1,000 ML IV SCH (21:02)
[2019-08-18] MEDS: ONDANSETRON HCL INJ 2MG/ML 2ML 2 MG/ML VIAL IV PRN (21:37)
[2019-08-18] MEDS: MORPHINE SULFATE 2 MG/ML SYR 1ML IV PRN (21:37)
--- NOTE | 2019-08-18 21:51 | NUR ---
RECEIVED REPORT FROM EBONY, ER NURSE. PATIENT ARRIVED VIA WHEELCHAIR. PATIENT IN NO DISTRESS BUT SOME PAIN IN CHEST AND UPPER ABDOMINE. CALL LIGHT WITHIN REACH. PATIENT IN BED
[2019-08-18 21:53] VITALS: BP 141/66
[2019-08-18 21:55] VITALS: BP 141/66
[2019-08-18] MEDS: FAMOTIDINE 20 MG/2 ML VIAL IV SCH (22:24)
[2019-08-18] MEDS: INSULIN LISPRO 100 UNIT/1 ML 3ML VIAL SQ SCH (22:25)
[2019-08-19] VITALS (8 sets, daily range): BP systolic 96–121; BP diastolic 51–72
[2019-08-19 00:17] LABS: CREATINE KINASE 44 IU/L (29-168)
[2019-08-19] MEDS ORDERED: INFLUENZA VIRUS VAC SPLIT INJ 0.5 ML SYR IM SCH (00:48)
[2019-08-19] MEDS: MORPHINE SULFATE 2 MG/ML SYR 1ML IV PRN ×6 (01:32→20:52)
[2019-08-19] MEDS: ONDANSETRON HCL INJ 2MG/ML 2ML 2 MG/ML VIAL IV PRN ×4 (04:37→20:52)
[2019-08-19 05:24] LABS: BASOPHILS % 0.6 % (0.0-1.0); EOSINOPHILS # (AUTO) 0.4 (0.0-0.4); EOSINOPHILS % 5.6 % (0.0-6.0); HEMATOCRIT 36.5 % (34.2-44.1); HEMOGLOBIN 11.8 g/dL (12.0-16.0); LYMPHOCYTES # (AUTO) 2.9 (1.0-3.2); LYMPHOCYTES % 40.9 % (18.0-39.1); MEAN CORPUSCULAR HEMOGLOBIN 31.5 pg (28-32); MEAN CORPUSCULAR HGB CONC 32.3 g/dL (31-35); MEAN CORPUSCULAR VOLUME 97.3 fL (81-99); MONOCYTES # (AUTO) 0.4 (0.2-0.8); MONOCYTES % 5.7 % (4.4-11.3); NEUTROPHILS # (AUTO) 3.4 (2.1-6.9); NEUTROPHILS % 47.1 % (38.7-80.0); PLATELET COUNT 216 x10e3/uL (140-360); RED BLOOD COUNT 3.75 x10e6/uL (3.6-5.1); RED CELL DISTRIBUTION WIDTH 12.4 % (11.7-14.4)
[2019-08-19 05:49] LABS: CREATINE KINASE 39 IU/L (29-168)
[2019-08-19 06:20] LABS: ALANINE AMINOTRANSFERASE 20 IU/L (0-55); ALBUMIN 2.8 g/dL (3.5-5.0); ALBUMIN/GLOBULIN RATIO 0.8 (0.8-2.0); ALKALINE PHOSPHATASE 73 IU/L (40-150); ANION GAP 9.6 mmol/L (8-16); BLOOD UREA NITROGEN 14 mg/dL (7-26); BUN/CREATININE RATIO 18 (6-25); CALCIUM 8.1 mg/dL (8.4-10.2); CARBON DIOXIDE 23 mmol/L (22-29); CHLORIDE 110 mmol/L (98-107); CHOL/HDL RATIO 5.7 (3.0-3.6); CHOLESTEROL 159 MD/DL (0-199); CREATININE, SERUM 0.78 mg/dL (0.57-1.11); EST GLOMERULAR FILTRATION RATE > 60 ML/MIN (60-); GLUCOSE 125 mg/dL (74-118); HDL CHOLESTEROL 28 MG/DL (40-60); LDL CHOLESTEROL 98 MG/DL (60-130); POTASSIUM 3.6 mmol/L (3.5-5.1); SODIUM 139 mmol/L (136-145); TRIGLYCERIDES 165 MG/DL (0-149)
--- NOTE | 2019-08-19 07:08 | NUR ---
GAVE BEDSIDE SHIFT REPORT TO ONCOMING NURSE. CALL LIGHT WITHIN REACH. PATIENT IN BED. HOURLY ROUNDING PERFORMED
[2019-08-19] MEDS: INSULIN LISPRO 100 UNIT/1 ML 3ML VIAL SQ SCH ×4 (07:30→20:59)
--- NOTE | 2019-08-19 08:00 | NUR ---
INITIAL ASSESSMENT COMPLETE, PT IN BED, NO DISTRESS NOTED, DOES C/O PAIN IN ABD, PT HAS HAD NO BM FOR SIX DAYS, CARDIAC MARKERS NEGATIVE, CONTINUE TO MONITOR PT
[2019-08-19] MEDS ORDERED: BISACODYL 10 MG SUPP PR NR (08:45)
[2019-08-19] MEDS: FAMOTIDINE 20 MG/2 ML VIAL IV SCH ×2 (09:00→20:51)
[2019-08-19] MEDS ORDERED: ASPIRIN 81 MG ENTERIC COATED PO SCH (09:00)
[2019-08-19] MEDS: PHENOBARBITAL 30 MG TAB PO SCH ×2 (09:00→16:50)
[2019-08-19] MEDS: PAROXETINE HCL 20 MG TAB PO SCH (09:00)
[2019-08-19] MEDS: PHENYTOIN SODIUM EXT REL 100 MG CAP PO SCH ×2 (09:00→20:52)
[2019-08-19] MEDS: SENNOSIDES 8.6 MG TAB PO SCH ×2 (09:00→16:50)
[2019-08-19] MEDS: MAGNESIUM OXIDE 400 MG TAB PO SCH (09:00)
[2019-08-19] MEDS ORDERED: PEG (High)/E-LYTE SOLN 4,000 ML BTL PO NR (09:00)
[2019-08-19] MEDS ORDERED: MAGNESIUM HYDROXIDE 30 ML UDC PO ONE (09:00)
[2019-08-19] MEDS: SERTRALINE HCL 50 MG TAB PO SCH (09:00)
[2019-08-19] MEDS: SODIUM CHLORIDE 0.9% 1000ML 1,000 ML IV SCH (09:16)
--- NOTE | 2019-08-19 09:18 | History and Physical ---
PRIMARY CARE PHYSICIAN: Dr. Nito Gee. CHIEF COMPLAINT: Abdominal pain, nausea, and vomiting. HISTORY OF PRESENT ILLNESS: This is a 64-year-old female, chronically in pain, on opioids and [place] at home for pain management. The patient came in with increased abdominal pain. Last bowel movement was at least 5 to 7 days ago. She is also complaining of increasing shortness of breath. She has some nausea and vomiting, some chest pain. Complains of weakness and headaches. Her COVID-19 test in the emergency room still pending at this time. She is breathing normally. No oxygen support. She is ambulatory without any assistance. The patient is otherwise stable. She was complaining of pain, but apparently she ran out of her pain medication at home. PAST MEDICAL HISTORY: Chronic opioid dependency, hypertension, diabetes type 2 on insulin, COPD, congestive heart failure, history of coronary artery disease with previous OK, seizure disorder, migraine, chronic anemia, DVT, PE, history of colon cancer with status post colon resection with colostomy subsequently reversal, history of coronary stents, and left upper chest Port-A-Cath. SOCIAL HISTORY: The patient does not smoke now. She was a former smoker. No recreational drug use. No alcohol. ALLERGIES: TO CEFTRIAXONE AND PHENERGAN. HOME MEDICATIONS: The patient is on [place], Lantus insulin, magnesium oxide, Zofran, pantoprazole, Paxil, pyridium, phenobarbital, phenytoin, Zoloft, warfarin, and Ambien. PHYSICAL EXAMINATION: VITAL SIGNS: Temperature is 98, blood pressure 107/70, pulse rate is 65, and respiration 18. GENERAL: The patient is not in acute distress. She is comfortable. She is awake. HEENT: Normocephalic and atraumatic. Pupils reactive. Anicteric. NECK: Supple grossly. PULMONARY: Diminished breath sounds without any wheezing or rales. CARDIOVASCULAR: S1 and S2. Bradycardia. ABDOMEN: Soft, non-distention, generalized discomfort. EXTREMITIES: No gross cyanosis or edema. NEUROLOGIC: No gross focal deficit. Moving all extremities. LABORATORY DATA: WBC is 7.1, hemoglobin 11.8, hematocrit 36.5, and platelets 216. Chemistry; sodium 139, potassium 3.6, chloride 110, bicarb 23, BUN 14, creatinine 0.8, and glucose 125. Cardiac enzyme has been negative. Urinalysis is otherwise unremarkable. Serology; COVID-19 pending. INR is 0.96. CT scan of abdomen and pelvis showed that the patient had diverticular disease. No diverticulitis. No acute finding abdomen other than constipation. IMPRESSION: 1. Constipation may be contributed to the patient's abdominal pain. 2. Multiple chronic baseline problems. 3. Under coagulation with warfarin. 4. Chronic opioid dependency. PLAN: Bowel management. Resume home medication. We will continue to see how the patient does and go from there. The patient will resume her home medication. We will restart her warfarin as well. Insulin sliding scale coverage. Resume her pain medication. MD EVERARDO Morin/MACO /[id number]
--- NOTE | 2019-08-19 10:30 | NUR ---
PT AWAKE AND UP TO BATHROOM, NO EATING WELL, CONTINUE TO ENCOURAGE TO EAT, NO VOMITING NOTED, CONTINUE TO MONITOR PT, CALL LIGHT IN REACH
[2019-08-19 13:28] LABS: CREATINE KINASE 39 IU/L (29-168)
[2019-08-19] MEDS: WARFARIN SOD 5 MG TAB PO SCH (16:49)
--- NOTE | 2019-08-19 17:00 | NUR ---
PT UP IN BED FOR DINNER, NO DISTRESS NOTED, CALL LIGHT IN REACH,
--- NOTE | 2019-08-19 18:29 | NUR ---
PT IN BED, NO BM TODAY, STATES HER STOMACH FEELS LIKE ITS MOVING, WILL CONTINUE TO MONITOR, NO DISTRESS NOTED
--- NOTE | 2019-08-19 19:20 | NUR ---
PATIENT RECEIVED AT BED SIDE REPORT. PATIENT IS RESTING IN BED, AAOX3. RESP EVEN AND UNLABORED. NO DISTRESS NOTED AT THIS TIME. TELE IN PLACE. CALL LIGHT WITHIN REACH. INSTRUCT TO CALL FOR ASSISTANCE. BED LOW/LOCKED. SIDE RAIL UP X2. CONTINUE TO MONITOR CLOSELY
[2019-08-20] VITALS (8 sets, daily range): BP systolic 93–129; BP diastolic 42–63
[2019-08-20] MEDS: MORPHINE SULFATE 2 MG/ML SYR 1ML IV PRN ×4 (00:54→14:47)
[2019-08-20] MEDS: ONDANSETRON HCL INJ 2MG/ML 2ML 2 MG/ML VIAL IV PRN ×4 (00:54→14:47)
[2019-08-20 06:04] LABS: INR 1.04; PROTHROMBIN TIME 14.2 seconds (11.9-14.5)
--- NOTE | 2019-08-20 07:00 | NUR ---
RECEIVED PATIENT AWAKE RESTING IN BED NO S/S OF DISTRESS. BED LOW, WHEELS LOCKED, SIDE RAILS X2. CALL LIGHT IN REACH WILL CONTINUE TO MONITOR PATIENT.
[2019-08-20] MEDS: INSULIN LISPRO 100 UNIT/1 ML 3ML VIAL SQ SCH ×4 (07:30→20:59)
[2019-08-20] MEDS ORDERED: PEG (High)/E-LYTE SOLN 4,000 ML BTL PO SCH (08:00)
[2019-08-20] MEDS: SENNOSIDES 8.6 MG TAB PO SCH ×2 (08:34→16:26)
[2019-08-20] MEDS: PHENOBARBITAL 30 MG TAB PO SCH ×2 (08:34→16:26)
[2019-08-20] MEDS: FAMOTIDINE 20 MG/2 ML VIAL IV SCH ×2 (08:34→20:55)
[2019-08-20] MEDS: PHENYTOIN SODIUM EXT REL 100 MG CAP PO SCH ×2 (08:34→20:55)
[2019-08-20] MEDS: MAGNESIUM OXIDE 400 MG TAB PO SCH (08:34)
[2019-08-20] MEDS: PAROXETINE HCL 20 MG TAB PO SCH (08:34)
[2019-08-20] MEDS: SERTRALINE HCL 50 MG TAB PO SCH (08:35)
[2019-08-20] MEDS: BISACODYL 10 MG SUPP PR PRN (08:35)
[2019-08-20] MEDS: WARFARIN SOD 5 MG TAB PO SCH (16:26)
--- NOTE | 2019-08-20 17:35 | NUR ---
SPOKE WITH DR. JONES REGARDING SMALL AMOUNT OF DIARRHEA. PATIENT HAD ONE EPISODE OF EMESIS. NEW ORDER TO DC MORPHINE, ADMIT PATIENT, AND CONSULT DR. KRAFT.
[2019-08-20] MEDS: HYDROCODONE/APAP 10MG-325MG TAB PO PRN ×2 (18:34→23:16)
--- NOTE | 2019-08-20 19:39 | NUR ---
RECEIVED PATIENT IN BED AOX3 NO S/S OF DISTRESS. DENIES PAIN BED LOW, WHEELS LOCKED, SIDE RAILS X2. CALL LIGHT IN REACH WILL CONTINUE TO MONITOR PATIENT.
[2019-08-20] MEDS ORDERED: METHYLNALTREXONE BROMIDE 12 MG/0.6 ML VIAL SQ SCH (22:15)
[2019-08-21] VITALS (9 sets, daily range): BP systolic 92–145; BP diastolic 52–74
--- NOTE | 2019-08-21 01:31 | Consultation ---
DATE OF CONSULTATION: 08/20/2019 GI Consult Note REASON FOR CONSULTATION: Abdominal pain, nausea, vomiting, along with constipation. HISTORY OF PRESENT ILLNESS: A 64-year-old female, who is chronically dependent on opioid for pain control. Her pain is mainly in joints and back. She has had her last bowel movement 5-7 days ago. She is not on daily bowel regimen. She takes hydrocodone with acetaminophen 1 tablet every 4 hours as needed. She ended up taking almost daily. She also has a significant past medical history of colon cancer, status post left hemicolectomy with colostomy, subsequent colostomy reversal 6 years ago. She has had a colonoscopy 3-4 years ago somewhere in [facility]. She was told that she has a polyp. She has not had any repeat colonoscopy after that. She also has a history of pulmonary embolism/DVT. She is chronically on warfarin for more than 6-7 years. Ever since the patient has not had any bowel movement for 6-7 days, she is also feeling nauseous, has vomited couple of times at home. CT of the abdomen and pelvis done here in the emergency room showed moderate amount of stool in the rectum. Anastomotic line in the region of rectosigmoid junction appeared intact. No obvious stenosis. She is currently being given GoLYTELY to flush out the retained stool. She has had very small bowel movement while being in the hospital. REVIEW OF SYSTEMS: Twelve point system is reviewed, symptomatology is limited to GI system. PAST MEDICAL HISTORY: 1. Chronic pain syndrome. 2. Chronic opioid dependency. 3. Hypertension. 4. Type 2 diabetes. 5. History of colon cancer. 6. COPD. 7. Congestive heart failure. 8. History of DVT/PE, on warfarin. PAST SURGICAL HISTORY: 1. Partial colectomy with colostomy followed by colostomy reversal. 2. Left upper chest Port-A-Cath. 3. Coronary stents. FAMILY HISTORY: Noncontributory. Negative for any GI or TORCH BURNER malignancies. SOCIAL HISTORY: No smoking, alcohol, or any illicit drug use. ALLERGIES: CEFTRIAXONE AND PHENERGAN. HOME MEDICATIONS: 1. Hydrocodone with acetaminophen 10/325 mg one tablet q.4 hours as needed. 2. Insulin glargine. 3. Magnesium oxide. 4. Zofran. 5. Pantoprazole. 6. Paroxetine. 7. Phenazopyridine. 8. Phenobarbital. 9. Sertraline. 10. Warfarin. 11. Zolpidem. INPATIENT MEDICATIONS: Reviewed, as per APR. PHYSICAL EXAMINATION: VITAL SIGNS: Temperature 98.5, pulse 58, respirations 18, blood pressure 99/63, oxygen saturation 99% on 2 L of nasal cannula. GENERAL: Not in any apparent distress. HEENT: Oral mucosa is moist. Anicteric sclerae. CVS: S1, S2. Regular. LUNGS: Bilaterally grossly clear. ABDOMEN: Soft and nondistended. Mild lower quadrant tenderness on deep palpation without rebound, rigidity, or guarding. Bowel sounds minimal. EXTREMITIES: Warm. No leg edema. LABORATORY DATA: WBC 7.18, hemoglobin 11.8, hematocrit 36.5, MCV 97.3, platelet count 216. Sodium 139, potassium 3.6, chloride 110, bicarb 23, BUN 14, creatinine 0.78, glucose 125. Liver enzymes showed a total bilirubin 0.3, AST 16, ALT 20, alkaline phosphatase 73. COVID test negative. Urinalysis negative. PT 14.2, INR 1.04. Chest x-ray, no acute thoracic abnormality. CT scan of the abdomen and pelvis showed no abdominal distention, wall thickening or any evidence of bowel obstruction. Moderate amount of stool in the rectum. Anastomotic line in the region of the rectosigmoid junction appears intact, although evaluation is limited due to lack of oral contrast. Scattered descending colon diverticula without CT evidence of acute diverticulitis. No gallstones. Normal spleen. Liver is demonstrating diffuse fatty infiltration. IMPRESSION: 1. Opioid induced constipation. 2. History of colon cancer, status post left hemicolectomy with colostomy followed by reversal, with colocolonic anastomosis. 3. History of deep vein thrombosis and pulmonary embolism, on warfarin. PLAN: I agree with giving GoLYTELY. Minimize the use of opioids. Consider Relistor (enteric opioid receptor antagonist) enema. Till she starts having bowel movement, I want to put her on clear to full liquid diet. I thank, Dr. Randhawa, for allowing me to participate in the care of this patient. Poncho Pedraza MD SA/MACO /[id number]
--- NOTE | 2019-08-21 06:01 | NUR ---
PT RESTING .C/O PAIN AND NAUSEA ,GIVEN ORDERED PAIN MEDICATION ..CONTINUE TO MONITOR
--- NOTE | 2019-08-21 06:56 | NUR ---
BEDSIDE REPORT GIVEN TO THE ONCOMING NURSE
--- NOTE | 2019-08-21 06:57 | NUR ---
BEDSIDE REPORT GIVEN TO THE ONCOMING NURSE
--- NOTE | 2019-08-21 07:00 | NUR ---
RECEIVED PATIENT AWAKE RESTING IN BED NO S/S OF DISTRESS. BED LOW, WHEELS LOCKED, SIDE RAILS X2. CALL LIGHT IN REACH WILL CONTINUE TO MONITOR PATIENT.
[2019-08-21] MEDS: INSULIN LISPRO 100 UNIT/1 ML 3ML VIAL SQ SCH ×4 (07:30→21:00)
[2019-08-21] MEDS: HYDROCODONE/APAP 10MG-325MG TAB PO PRN ×3 (08:38→21:30)
[2019-08-21] MEDS: PHENYTOIN SODIUM EXT REL 100 MG CAP PO SCH ×2 (08:39→21:00)
[2019-08-21] MEDS: SENNOSIDES 8.6 MG TAB PO SCH ×2 (08:39→16:23)
[2019-08-21] MEDS: PAROXETINE HCL 20 MG TAB PO SCH (08:39)
[2019-08-21] MEDS: SERTRALINE HCL 50 MG TAB PO SCH (08:39)
[2019-08-21] MEDS: PHENOBARBITAL 30 MG TAB PO SCH ×2 (08:39→16:53)
[2019-08-21] MEDS: FAMOTIDINE 20 MG/2 ML VIAL IV SCH ×2 (08:39→21:00)
[2019-08-21] MEDS: MAGNESIUM OXIDE 400 MG TAB PO SCH (08:39)
[2019-08-21] MEDS: METHYLNALTREXONE BROMIDE 12 MG/0.6 ML VIAL SQ SCH (10:16)
[2019-08-21] MEDS: ONDANSETRON HCL INJ 2MG/ML 2ML 2 MG/ML VIAL IV PRN ×2 (11:45)
[2019-08-21] MEDS: WARFARIN SOD 5 MG TAB PO SCH (16:23)
--- NOTE | 2019-08-21 19:55 | NUR ---
RECEIVED PT IN BED AOX3 ,C/O PAIN 05/29 .NO ACUTE DISTRESS NOTED .CALL LIGHT WITH IN REACH .CONTINUE TO MONITOR
[2019-08-21] MEDS: ZOLPIDEM TARTRATE 10 MG TAB PO PRN ×2 (22:00)
[2019-08-22] VITALS (7 sets, daily range): BP systolic 101–128; BP diastolic 52–93
[2019-08-22] MEDS: HYDROCODONE/APAP 10MG-325MG TAB PO PRN ×4 (05:18→20:38)
[2019-08-22 05:53] LABS: BASOPHILS # (AUTO) 0.1 (0.0-0.1); BASOPHILS % 0.6 % (0.0-1.0); EOSINOPHILS # (AUTO) 0.4 (0.0-0.4); EOSINOPHILS % 5.4 % (0.0-6.0); HEMATOCRIT 38.1 % (34.2-44.1); HEMOGLOBIN 12.4 g/dL (12.0-16.0); LYMPHOCYTES # (AUTO) 2.8 (1.0-3.2); LYMPHOCYTES % 35.8 % (18.0-39.1); MEAN CORPUSCULAR HEMOGLOBIN 30.8 pg (28-32); MEAN CORPUSCULAR HGB CONC 32.5 g/dL (31-35); MEAN CORPUSCULAR VOLUME 94.8 fL (81-99); MONOCYTES # (AUTO) 0.5 (0.2-0.8); MONOCYTES % 6.8 % (4.4-11.3); NEUTROPHILS % 51.1 % (38.7-80.0); PLATELET COUNT 232 x10e3/uL (140-360); RED BLOOD COUNT 4.02 x10e6/uL (3.6-5.1); RED CELL DISTRIBUTION WIDTH 12.2 % (11.7-14.4)
--- NOTE | 2019-08-22 05:57 | NUR ---
C/O PAIN AND GIVEN NORCO AND PT RESTING ,CALL LIGHT WITH IN REACH ,CONTINUE TO MONITOR
[2019-08-22 05:58] LABS: INR 2.88; PROTHROMBIN TIME 32.4 seconds (11.9-14.5)
[2019-08-22 06:23] LABS: ALANINE AMINOTRANSFERASE 25 IU/L (0-55); ALBUMIN 3.1 g/dL (3.5-5.0); ALBUMIN/GLOBULIN RATIO 0.8 (0.8-2.0); ALKALINE PHOSPHATASE 86 IU/L (40-150); ANION GAP 9.9 mmol/L (8-16); BLOOD UREA NITROGEN 13 mg/dL (7-26); BUN/CREATININE RATIO 16 (6-25); CALCIUM 8.3 mg/dL (8.4-10.2); CARBON DIOXIDE 30 mmol/L (22-29); CHLORIDE 103 mmol/L (98-107); CREATININE, SERUM 0.79 mg/dL (0.57-1.11); EST GLOMERULAR FILTRATION RATE > 60 ML/MIN (60-); GLUCOSE 99 mg/dL (74-118); POTASSIUM 3.9 mmol/L (3.5-5.1); SODIUM 139 mmol/L (136-145)
--- NOTE | 2019-08-22 07:00 | NUR ---
bedside shift report received pt in stable condition, denies pain at this time, updated on poc voiced understanding, l port intact, call light in reach will continue ot monitor
--- NOTE | 2019-08-22 07:14 | NUR ---
BEDSIDE REPORT GIVEN TO THE ONCOMING NURSE NO ACUTE DISTRESS NOTED
[2019-08-22] MEDS: FAMOTIDINE 20 MG/2 ML VIAL IV SCH ×2 (09:20→20:36)
[2019-08-22] MEDS: ONDANSETRON HCL INJ 2MG/ML 2ML 2 MG/ML VIAL IV PRN (09:23)
[2019-08-22] MEDS: MAGNESIUM OXIDE 400 MG TAB PO SCH (09:24)
[2019-08-22] MEDS: PAROXETINE HCL 20 MG TAB PO SCH (09:24)
[2019-08-22] MEDS: PHENOBARBITAL 30 MG TAB PO SCH ×2 (09:24→16:32)
[2019-08-22] MEDS: PHENYTOIN SODIUM EXT REL 100 MG CAP PO SCH ×2 (09:24→20:36)
[2019-08-22] MEDS: SERTRALINE HCL 50 MG TAB PO SCH (09:25)
[2019-08-22] MEDS: SENNOSIDES 8.6 MG TAB PO SCH ×2 (09:25→16:32)
[2019-08-22] MEDS: INSULIN LISPRO 100 UNIT/1 ML 3ML VIAL SQ SCH ×4 (09:47→20:38)
[2019-08-22] MEDS: BISACODYL 10 MG SUPP PR PRN (15:27)
--- NOTE | 2019-08-22 18:56 | NUR ---
WALKING ROUNDS PERFORMED, RECEIVED PT LAYING SEMI FOWLERS IN BED, AAOX3, RR EVEN AND NON-LABORED, ON ROOM AIR. NO S/SX OF DISTRESS NOTED. LEFT PT LAYING SEMI FOWLERS IN BED, BED IN LOW LOCKED POSITION, SIDE RAILS UPX2, CALL LIGHT AND PHONE WITHIN REACH.
[2019-08-23] VITALS (9 sets, daily range): BP systolic 109–127; BP diastolic 42–79
[2019-08-23] MEDS: HYDROCODONE/APAP 10MG-325MG TAB PO PRN ×3 (04:02→21:00)
[2019-08-23 04:25] LABS: INR 3.04; PROTHROMBIN TIME 33.8 seconds (11.9-14.5)
[2019-08-23] MEDS: INSULIN LISPRO 100 UNIT/1 ML 3ML VIAL SQ SCH ×4 (07:30→20:55)
[2019-08-23] MEDS: FAMOTIDINE 20 MG/2 ML VIAL IV SCH ×2 (08:02→20:57)
[2019-08-23] MEDS: PHENYTOIN SODIUM EXT REL 100 MG CAP PO SCH ×2 (08:02→20:55)
[2019-08-23] MEDS: MAGNESIUM OXIDE 400 MG TAB PO SCH (08:03)
[2019-08-23] MEDS: SERTRALINE HCL 50 MG TAB PO SCH (08:03)
[2019-08-23] MEDS: PHENOBARBITAL 30 MG TAB PO SCH ×2 (08:03→18:18)
[2019-08-23] MEDS: SENNOSIDES 8.6 MG TAB PO SCH ×2 (08:03→18:18)
[2019-08-23] MEDS: PAROXETINE HCL 20 MG TAB PO SCH (08:03)
[2019-08-23] MEDS: BISACODYL 10 MG SUPP PR PRN (08:04)
[2019-08-23] MEDS: METHYLNALTREXONE BROMIDE 12 MG/0.6 ML VIAL SQ SCH (11:16)
[2019-08-23] MEDS: LACTULOSE SYRUP 20 GM/30 ML UDC PO SCH ×4 (15:38→23:30)
[2019-08-23] MEDS ORDERED: CITRATE OF MAGNESIA 300ML BOTTLE PO ONE (17:00)
--- NOTE | 2019-08-23 19:07 | NUR ---
WALKING ROUNDS PERFORMED, RECEIVED PT LAYING SEMI FOWLERS IN BED, AAOX3, RR EVEN AND NON-LABORED, ON ROOM AIR. PT REPORTS FEELING NAUSEATED. PT REPORTS VERY SMALL BM ON DAY SHIFT. LEFT PT LAYING SEMI FOWLERS IN BED, BED IN LOW LOCKED POSITION, SIDE RAILS UPX2, CALL LIGHT AND PHONE WITHIN REACH.
[2019-08-23] MEDS: ONDANSETRON HCL INJ 2MG/ML 2ML 2 MG/ML VIAL IV PRN (19:20)
[2019-08-24] VITALS: BP 122/70
[2019-08-24] MEDS: LACTULOSE SYRUP 20 GM/30 ML UDC PO SCH ×4 (02:10→11:02)
[2019-08-24 04:00] VITALS: BP 148/59
[2019-08-24] MEDS: HYDROCODONE/APAP 10MG-325MG TAB PO PRN (05:25)
[2019-08-24 05:52] LABS: INR 2.38; PROTHROMBIN TIME 27.8 seconds (11.9-14.5)
--- NOTE | 2019-08-24 07:00 | NUR ---
received bedside report. pt is alert resting in bed, states she has had a liquid BM since 0500. no s/s of distress. call light within reach and instructed pt to call RN for help
[2019-08-24] MEDS: INSULIN LISPRO 100 UNIT/1 ML 3ML VIAL SQ SCH ×2 (07:30→11:30)
[2019-08-24 07:54] VITALS: BP 118/67
[2019-08-24 07:58] VITALS: BP 118/67
[2019-08-24] MEDS: SERTRALINE HCL 50 MG TAB PO SCH (09:15)
[2019-08-24] MEDS: PHENOBARBITAL 30 MG TAB PO SCH (09:15)
[2019-08-24] MEDS: PHENYTOIN SODIUM EXT REL 100 MG CAP PO SCH (09:15)
[2019-08-24] MEDS: FAMOTIDINE 20 MG/2 ML VIAL IV SCH (09:15)
[2019-08-24] MEDS: MAGNESIUM OXIDE 400 MG TAB PO SCH (09:15)
[2019-08-24] MEDS: SENNOSIDES 8.6 MG TAB PO SCH (09:15)
[2019-08-24] MEDS: PAROXETINE HCL 20 MG TAB PO SCH (09:15)
--- NOTE | 2019-08-25 03:34 | Progress Note ---
DATE: 08/24/2019 GI Progress Note SUBJECTIVE: The patient was constipated yesterday. She was given Dulcolax, magnesium citrate, and lactulose, and has had several bowel movements. OBJECTIVE: VITAL SIGNS: Stable. Afebrile. LUNGS: Clear. ABDOMEN: Soft, nontender. Bowel sounds normal. EXTREMITIES: No edema. LABORATORY DATA: Normal CBC and CMP. ASSESSMENT/PLAN: Constipation, improved with bowel regimen. RECOMMENDATIONS: 1. Lactulose 30 mL p.o. b.i.d. 2. TSH level. 3. The patient is to follow up with me in my office in 4 weeks. Vidhya Butler MD JR/MACO /[id number]
--- NOTE | 2019-08-25 06:19 | Discharge Summary ---
STAFF [employer] OFFICER: Blaine Zurita MD. PRIMARY CARE PHYSICIAN: Nito Gee MD. FINAL DIAGNOSES: 1. Obstipation. 2. Abdominal pain secondary to constipation, secondary to opioid consumption, opioid dependency. 3. Status post dehydration. 4. Subtherapeutic anticoagulant therapy. 5. Extensive history of deep vein thrombosis, pulmonary embolism and abdominal surgery. SUMMARY: A 64-year-old female with history of colon cancer, had a partial hemicolectomy. The patient also had previous colostomy that was subsequently reversal. During that time, the patient subsequently had DVT and pulmonary embolism. She is on anticoagulant therapy. The patient has chronic pain, opioid dependency. She did not take any of the stool softeners outpatient. She came in with severe obstipation clinically. The patient has been given medication. She is doing better and now has had multiple bowel movements. The patient is comfortable. Abdominal pain has improved. The patient will be going home today to resume home medication. She would add on MiraLAX 17 g twice a day and Senokot S tablet 1 tab twice a day. The patient is otherwise stable. Resume home medication. Follow up with her pain management and family physician for her medication reconciliation and continuation. MD EVERARDO Morin/MACO /[id number]
== END 2019-08-24 13:22 | disposition home or self-care (01) | DRG 392 ==
LOC: ER 15:59 → ERHOLD 18:20 → MED/SURG 21:55 → OBSVTOIN 08-21 09:19
PROVIDERS: ADMIT Internal Medicine; ATTEND Internal Medicine
DX: K59.03 Drug induced constipation (principal); F11.20 Opioid dependence, uncomplicated; T40.2X5A Adverse effect of other opioids, initial encounter; E86.0 Dehydration; Z86.718 Personal history of other venous thrombosis and embolism; Z79.01 Long term (current) use of anticoagulants; Z90.49 Acquired absence of other specified parts of digestive tract; G89.29 Other chronic pain; G89.4 Chronic pain syndrome; I11.0 Hypertensive heart disease with heart failure; I50.9 Heart failure, unspecified; E11.9 Type 2 diabetes mellitus without complications; J44.9 Chronic obstructive pulmonary disease, unspecified; Z11.59 Encounter for screening for other viral diseases
CPT/HCPCS: 36415; 70450; 71045; 74177; 80053; 80061; 81001; 82150; 82550; 82553; 82948; 83690; 83735; 84443; 84484; 85025; 85610; 85730; 87086; 93005; 99284; G0378; J2212; J2270; J2405; J7030; Q9967; U0002

== ENCOUNTER 2019-09-23 20:11 | Emergency (ER) | payer MEDICARE ==
[~2019-09-23] VITALS: Ht 160 cm; Wt 83.0 kg
--- NOTE | 2019-09-23 20:28 | Emergency Department Note ---
History of Present Illnes History of Present Illness Chief Complaint: Skin Rash or Abscess History of Present Illness This is a 64 year old female [facility]. Reports tactile fevers 4 days prior. Reports left sided chest wall pain . Historian: Patient Arrival Mode: Car Onset (how long ago): day(s) (4) Severity: moderate Onset quality: gradual Duration (how long): day(s) Timing of current episode: constant Progression: worsening Context: Reports recent illness Relieving factors: none Exacerbating factors: none Associated symptoms: Reports chest pain, Reports fever/chills Treatments prior to arrival: none Previous service: medications given, tests performed, one or more referrals Past Medical/Family History Physician Review I have reviewed the patient's past medical and family history. Any updates have been documented here. Past Medical History Recent Fever: Yes Clinical Suspicion of Infectio: Yes New/Unexplained Change in Ment: No Past Medical History: Hypertension, Diabetes, COPD, CHF, NC, Cancer, Seizure Disorder, Migraines, Anemia, DVT/PE Other Medical History: COLON CA Past Surgical History: PCI, Colon Resection Other Surgery: COLON PORT (MULTIPLE) CARDIAC STENTS-Per Dr. Blue's report no stent visualized when angiogram performed. HX OF COLOSTOMY Social History Smoking Cessation: Never Smoker Alcohol Use: None Any Illegal Drug Use: No Other Last Tetanus: UNKNOWN Review of Systems Review of Systems Constitutional: Reports fever EENTM: Reports no symptoms Cardiovascular: Reports chest pain Respiratory: Reports no symptoms Gastrointestinal: Reports no symptoms Genitourinary: Reports no symptoms Musculoskeletal: Reports no symptoms Integumentary: Reports no symptoms Neurological: Reports no symptoms Psychological: Reports no symptoms Endocrine: Reports no symptoms Hematological/Lymphatic: Reports no symptoms Physical Exam Related Data Allergies: Coded Allergies: ceftriaxone (Verified Allergy, Mild, HIVES, 08/18/19) prochlorperazine (Verified Allergy, Mild, BLACK OUTS, 08/18/15) Vital signs reviewed: Yes Physical Exam CONSTITUTIONAL Constitutional: Present well-developed, Present well-nourished HENT HENT: Present normocephalic, Present atraumatic, Present oropharynx c lear/moist, Present nose normal HENT L/R: Present left ext ear normal, Present right ext ear normal EYES Eyes: Reports PERRL, Reports conjunctivae normal NECK Neck: Present ROM normal PULMONARY Pulmonary: Present effort normal, Present breath sounds normal, Present chest tenderness, Present other (retained PIV at portacath site. No signs of erythema or discharge) CARDIOVASCULAR Cardiovascular: Present regular rhythm, Present heart sounds normal, Present capillary refill normal, Present normal rate GASTROINTESTINAL Abdominal: Present soft, Present nontender, Present bowel sounds normal GENITOURINARY Genitourinary: Present exam deferred SKIN Skin: Present warm, Present dry MUSCULOSKELETAL Musculoskeletal: Present ROM normal NEUROLOGICAL Neurological: Present alert, Present oriented x 3, Present no gross motor or sensory deficits PSYCHOLOGICAL Psychological: Present mood/affect normal, Present judgement normal Results Laboratory Lab results reviewed: Yes Laboratory comments Laboratory Tests Test 09/23/19 20:40 White Blood Count 7.26 x10e3/uL (4.8-10.8) Red Blood Count 4.27 x10e6/uL (3.6-5.1) Hemoglobin 13.1 g/dL (12.0-16.0) Hematocrit 39.6 % (34.2-44.1) Mean Corpuscular Volume 92.7 fL (81-99) Mean Corpuscular Hemoglobin 30.7 pg (28-32) Mean Corpuscular Hemoglobin Concent 33.1 g/dL (31-35) Red Cell Distribution Width 13.0 % (11.7-14.4) Platelet Count 203 x10e3/uL (140-360) Neutrophils (%) (Auto) 46.8 % (38.7-80.0) Lymphocytes (%) (Auto) 38.8 % (18.0-39.1) Monocytes (%) (Auto) 8.5 % (4.4-11.3) Eosinophils (%) (Auto) 5.0 % (0.0-6.0) Basophils (%) (Auto) 0.6 % (0.0-1.0) Neutrophils # (Auto) 3.4 (2.1-6.9) Lymphocytes # (Auto) 2.8 (1.0-3.2) Monocytes # (Auto) 0.6 (0.2-0.8) Eosinophils # (Auto) 0.4 (0.0-0.4) Basophils # (Auto) 0.0 (0.0-0.1) Absolute Immature Granulocyte (auto 0.02 x10e3/uL (0-0.1) Sodium Level 140 mmol/L (136-145) Potassium Level 3.5 mmol/L (3.5-5.1) Chloride Level 109 mmol/L (98-107) Carbon Dioxide Level 22 mmol/L (22-29) Anion Gap 12.5 mmol/L (8-16) Blood Urea Nitrogen 10 mg/dL (7-26) Creatinine 0.76 mg/dL (0.57-1.11) Estimat Glomerular Filtration Rate > 60 ML/MIN (60-) BUN/Creatinine Ratio 13 (6-25) Glucose Level 100 mg/dL (74-118) Calcium Level 8.7 mg/dL (8.4-10.2) Total Bilirubin 0.3 mg/dL (0.2-1.2) Aspartate Amino Transf (AST/SGOT) 33 IU/L (5-34) Alanine Aminotransferase (ALT/SGPT) 38 IU/L (0-55) Alkaline Phosphatase 80 IU/L (40-150) Total Protein 7.8 g/dL (6.5-8.1) Albumin 3.5 g/dL (3.5-5.0) Globulin 4.3 g/dL (2.3-3.5) Albumin/Globulin Ratio 0.8 (0.8-2.0) Imaging Imaging results reviewed: Yes Impressions [place] [address] Patient Name: JESUS ASCENCIO MR #: [id number] : 1955 Age/Sex: 64/F Req #: [id number] Adm Physician: Ordered by: ALEXSANDRA JONES DO Report #: [id number] Location: ER Room/Bed: Procedure: [id number] CT/CT CHEST W Exam Date: 09/23/19 Exam Time: 2199 REPORT STATUS: Signed EXAM: CT Chest WITH contrast 09/23/2019 10:17 PM INDICATION: ^chest wall infection COMPARISON: CT dated 05/04/2016 TECHNIQUE: Chest was scanned utilizing a multidetector helical scanner from the lung apex through the level of the adrenal glands with administration of IV contrast. Coronal and sagittal reformations were obtained. Routine protocol was performed. IV CONTRAST: 100 mL of Isovue 370 COMPLICATIONS: None RADIATION DOSE: Total DLP: 541.26 mGy*cm Estimated effective dose: (DLP x 0.014 x size factor) mSv CTDIvol has been reviewed. It is below the limits set by the Radiation Protocol Committee (RPC). Dose modulation, iterative reconstruction, and/or weight based adjustment of the mA/kV was utilized to reduce the radiation dose to as low as reasonably achievable. FINDINGS: LINES/ TUBES: Left chest wall infusion port catheter with tip projecting over the distal SVC. LUNGS AND AIRWAYS: The lungs are unremarkable. Airways are normal. PLEURA: The pleural spaces are clear. HEART AND MEDIASTINUM: The thyroid gland is normal. No mediastinal, hilar or axillary lymphadenopathy. The heart is normal in size. There is no pericardial effusion. UPPER ABDOMEN: Unremarkable. BONES: Subacute fractures of the posterior 8th and 10th left ribs. SOFT TISSUES: Unremarkable. IMPRESSION: 1. No evidence of chest wall infection. Subacute fractures of the posterior eighth and 10th left ribs. 2. No acute thoracic process. Signed by: Elvin Kat MD on 09/23/2019 11:31 PM Dictated By: ELVIN KAT MD [id number] Transcribed By: DARION on 09/23/19 2331 COPY TO: ALEXSANDRA JONES DO~ Assessment & Plan Medical Decision Making MDM Diff Dx : Chest wall pain, chest abscess, subcutanenous emphysema, sepsis , COVID -19 infection Assessment & Plan Final Impression: (1) Chest wall pain Depart Disposition: HOME, SELF-CARE Last Vital Signs Date Time Temp Pulse Resp B/P (MAP) Pulse Ox O2 Delivery O2 Flow Rate FiO2 09/23/19 20:24 97.9 92 17 149/98 98 Room Air Home Meds Active Scripts Ondansetron Hcl* (ZOFRAN*) 4 Mg Tablet, 4 MG PO Q4HR PRN for nausea/vomiting, #40 Prov:NIKKO OCONNOR MD 04/01/18 Reported Medications Pantoprazole Sodium* (PROTONIX) 40 Mg Tablet.dr, 40 MG PO DAILY, TAB 12/28/17 Zolpidem Tartrate (AMBIEN) 10 Mg Tablet, 10 MG PO HS PRN for INSOMNIA, #30 TAB 12/28/17 Paroxetine Hcl (PAROXETINE HCL) 20 Mg Tablet, 20 MG PO DAILY, #30 TAB 12/28/17 Magnesium Oxide (MAGNESIUM OXIDE) 400 Mg Tablet, 400 MG PO DAILY, TAB 12/28/17 Phenazopyridine Hcl (PHENAZOPYRIDINE HCL) 100 Mg Tablet, 100 MG PO AC, TAB 12/28/17 Hydrocodone Bit/Acetaminophen (HYDROCODON-ACETAMINOPHN 10-325) 1 Each Tablet, 1 EA PO Q4HR PRN for PAIN 12/28/17 Insulin Glargine (LANTUS) 100 Units/Ml Ml, UNITS SC UD SLIDING SCALE PRN DAILY/HS 10/15/15 Sertraline Hcl (ZOLOFT) 50 Mg Tablet, 50 MG PO DAILY, #30 TAB 11/02/14 Warfarin Sodium (COUMADIN) 10 Mg Tablet, 10 MG PO DAILY 01/30/12 Phenobarbital (PHENOBARBITAL) 60 Mg Tablet, 90 MG PO PM 01/30/12 Phenobarbital (PHENOBARBITAL) 30 Mg Tablet, 30 MG PO AM 01/30/12 Phenytoin Sodium Extended (DILANTIN) 100 Mg Capsule, 300 MG PO HS 01/30/12 Phenytoin Sodium Extended (DILANTIN) 100 Mg Capsule, 100 MG PO DAILY 01/30/12 ALEXSANDRA JONES DO Sep 23, 2019 20:28
--- OUTSIDE RECORDS SUMMARY | 2019-09-23 21:06 | XMS REPORT | Continuity of Care Document ---
Author Author Diony Inmoo, JESUS Wilson [employer] Information [employer] Address Unknown Phone Unavailable Care Team Providers Care Dinkey Operator Slag Name Role Phone [facility] [employer] Information Exchange Unavailable Un available Problems Problem Status Onset Date Classification Date Reported Comments Source CHEST PAIN IN ADULT,ARM PAIN,RT,SOB-SHOR Active 07/08/2018 [facility] VOMITING / ARM PAIN Active 07/08/2018 [facility] NOSEBLEED/COUGHING UP BLOOD Ac tive 01/10/2018 [facility] COUMADIN TOXICITY Active 01/10/2018 [facility] Urinary tract infection, site not specified 05/29/2016 06/01/2016 [facility] ABD PAIN Active 05/28/2016 [facility] SENT BY Active 07/14/2011 [facility] Anxiety Active Problem 07/17/2011 [facility] Back pain Active Problem 07/17/2011 [facility] Chest pain Active Problem 07/17/2011 [facility] Deep vein thrombosis Active Problem 07/17/2011 [facility] Depression Active Problem 07/17/2011 [facility] Dysmenorrhea Active Problem 07/17/2011 [facility] Fracture of knee-cap Active Problem 07/17/2011 [facility] Hay fever Active Problem 07/17/2011 [facility] Incontinence Active Problem 07/17/2011 [facility] Migraine Active Problem 07/17/2011 [facility] Nausea and vomiting Active Problem 07/17/2011 [facility] Neck pain Active Problem 07/17/2011 [facility] Osteoarthritis Active Problem 07/17/2011 [facility] Panic disorder Active Problem 07/17/2011 [facility] Pulmonary embolism Active Problem 07/17/2011 [facility] Seizure Active Problem 07/17/2011 [facility] Shoulder pain Active Problem 07/17/2011 [facility] Stroke Active Problem 07/17/2011 [facility] Suicide attempt Active Problem 07/17/2011 [facility] UTI - Urinary tract infection Active Problem [facility] Anxiety (finding) Active Problem 07/11/2018 [facility] Backache (finding) Active Problem 07/11/2018 [facility] Chest pain (finding) Active Problem 07/11/2018 [facility] Deep venous thrombosis (disorder) Active Problem [facility] Depressive disorder (disorder) Active Problem [facility] Diabetes mellitus (disorder) A ctive Problem [facility] Dysmenorrhea (disorder) Active Problem 07/11/2018 [facility] Epilepsy (disorder) Active Problem 07/11/2018 [facility] Fracture of patella (disorder) Active Problem [facility] Allergic rhinitis due to pollen (disorder) Active Problem 07/11/2018 [facility] Hypertensive disorder, systemic arterial (disorder) Active Problem 07/11/2018 [facility] Incontinence (finding) Active Problem 07/11/2018 [facility] Malignant tumor of colon (disorder) Active Problem [facility] Migraine (disorder) Active Problem 07/11/2018 [facility] Nausea and vomiting (disorder) Active Problem [facility] Neck pain (finding) Active Problem 07/11/2018 [facility] Osteoarthritis (disorder) Acti ve Problem [facility] Panic disorder (disorder) Acti ve Problem [facility] Pulmonary embolism (disorder) Active Problem [facility] Seizure (finding) Active Problem 07/11/2018 [facility] Shoulder pain (finding) Active Problem 07/11/2018 [facility] Sleep apnea (finding) Active Problem 07/11/2018 [facility] Cerebrovascular accident (disorder) Active Problem [facility] Suicide attempt (disorder) Act capo Problem [facility] Urinary tract infectious disease (disorder) Active Problem 07/11/2018 [facility] Coronary arteriosclerosis (disorder) Active Problem [facility] CHEST PAIN, UNSPECIFIED Active [facility] PAIN IN RIGHT ARM Active [facility] SHORTNESS OF BREATH Active [facility] POISONING BY ANTICOAGULANTS, ACCIDENTAL, Active [facility] Medications Medication Details Route Status Patient Instructions Ordering Provider Order Date Source Dilantin Notes: (Same as: Dila ntin) Do not open, crush, or chew. Inactive 07/10/2018 [facility] Phenobarbital Notes: (Same as: Barbita, Luminal, Solfoton) Inactive 07/10/2018 [facility] Lipitor Notes: (Same As: Lipit or) Inactive 07/10/2018 [facility] Acetaminophen 300 MG / Codeine Phosphate 30 MG Oral Tablet [Tylenol with Codeine #3] 1 tab, PO, Q6H, PRN Pain, X 7 day, # 28 tab, 0 Refill(s) Active 07/09/2018 [facility] Acetaminophen 300 MG / Codeine Phosphate 30 MG Oral Tablet [Tylenol with Codeine #3] 1 tab, PO, Q6H, PRN Pain, X 7 day, # 28 tab, 0 Refill(s), given to patient Inactive 07/09/2018 [facility] Warfarin Notes: Nurse to benny e documentation of patient education per anticoagulation policy. Avoid large intake of vitamin-K containing foods diet. WASTE: F/P - P Waste Black; E - P Waste Black (Same As: Coumadin) Inactive 07/09/2018 [facility] atorvastatin 10 mg oral tablet 20 mg = 2 tab, PO, Bedtime, 0 Refill(s) Active 07/09/2018 [facility] Lyrica Notes: (Same as: Lyrica) Inactive 07/09/2018 [facility] Dilantin Notes: (Same as: Dila ntin) Do not open, crush, or chew. Inactive 07/09/2018 [facility] Omeprazole 20 mg, Route: PO, D aily, Dosing Weight 72.727, kg, Start date: 07/09/18 9:00:00 CDT, Duration: 30 day, Stop date: 08/07/18 9:00:00 CDT Inactive 07/09/2018 [facility] Citalopram 20 mg, 2 tab, Route : PO, Drug form: TAB, Daily, Dosing Weight 72.727, kg, Start date: 07/09/18 9:00:00 CDT, Duration: 30 day, Stop date: 08/07/18 9:00:00 CDT Inactive 07/09/2018 [facility] Saline Flush 0.9% Notes: (Same as: BD Posiflush) Inactive 07/09/2018 [facility] Protonix Notes: Tablet should not be chewed or crushed. (Same as: Protonix) Inactive 07/09/2018 [facility] Phenobarbital Notes: (Same as: Barbita, Luminal, Solfoton) Inactive 07/09/2018 [facility] Morphine Notes: (Same as:MORPh ine Sulfate) Inactive 07/09/2018 [facility] Ketorolac 4 days. Inactive 07/09/2018 [facility] Saline Flush 0.9% Notes: (Same as: BD Posiflush) Inactive 07/09/2018 [facility] Nitroglycerin Notes: (Same as: Nitroquick, Nitrostat) "Do Not Crush" Sublingual tablet Inactive 07/09/2018 [facility] pneumococcal capsular polysaccharide typ e 1 vaccine / pneumococcal capsular polysaccharide type 10A vaccine / pneumococcal capsular polysaccharide type 11A vaccine / pneumococcal capsular polysaccharide type 12F vaccine / pneumococcal capsular polysacchar Notes: (Same as: Pneumovax 23) Refrigerate No Longer Active 07/09/2018 [facility] Ketorolac 15 mg, Route: IVP, D rug form: INJ, ONCE, Dosing Weight 72.727, kg, Priority: STAT, Start date: 07/08/18 21:35:00 CDT, Stop date: 07/08/18 21:35:00 CDT Inactive 07/09/2018 [facility] tramadol hydrochloride 50 MG Oral Tablet 50 mg = 1 tab, PO, Q12H, PRN Pain, X 10 day, # 20 tab, 0 Refill(s) Active 05/29/2016 [facility] tramadol hydrochloride 50 MG Oral Tablet 50 mg, Route: PO, Drug form: TAB, ONCE, Dosing Weight 63.636, kg, Priority: STAT, Start date: 05/29/16 1:57:00 CDT, Stop date: 05/29/16 1:57:00 CDT Inactive 05/29/2016 [facility] ciprofloxacin 500 mg oral tablet 500 mg = 1 tab, PO, Q12H, X 10 day, # 20 tab, 0 Refill(s) Active 05/29/2016 [facility] Diphenhydramine 25 mg, Route: IVP, ONCE, Dosing Weight 63.636, kg, Priority: STAT, Start date: 05/28/16 23:59:00 CDT, Stop date: 05/28/16 23:59:00 CDT No Longe r Active 05/29/2016 [facility] Prednisone 60 mg, Route: PO, D rug form: TAB, ONCE, Dosing Weight 63.636, kg, Priority: STAT, Start date: 05/28/16 23:59:00 CDT, Stop date: 05/28/16 23:59:00 CDT No Longer Active 05/29/2016 [facility] Ciprofloxacin 400 mg, Route: I VPB, ONCE, Dosing Weight 63.636, kg, Priority: STAT, Start date: 05/28/16 23:59:00 CDT, Stop date: 05/28/16 23:59:00 CDT No Longe r Active 05/29/2016 [facility] Ceftriaxone 1 gm, Route: IVPB, Drug form: PDR/INJ, ONCE, Dosing Weight 63.636, kg, Priority: STAT, Start date: 05/28/16 23:04:00 CDT, Stop date: 05/28/16 23:04:00 CDT Inactive 05/29/2016 [facility] Ondansetron 4 mg, Route: IVP, Drug form: INJ, ONCE, Dosing Weight 63.636, kg, Priority: STAT, Start date: 05/28/16 22:22:00 CDT, Stop date: 05/28/16 22:22:00 CDT Inactive 05/29/2016 [facility] Morphine 4 mg, Route: IVP, ONC E, Dosing Weight 63.636, kg, Priority: STAT, Start date: 05/28/16 22:22:00 CDT, Stop date: 05/28/16 22:22:00 CDT Inactive 05/29/2016 [facility] Ondansetron 4 mg, Route: IVP, Drug form: INJ, ONCE, Dosing Weight 63.636, kg, Priority: STAT, Start date: 05/28/16 20:49:00 CDT, Stop date: 05/28/16 20:49:00 CDT Inactive 05/29/2016 [facility] Morphine 4 mg, Route: IVP, ONC E, Dosing Weight 63.636, kg, Priority: STAT, Start date: 05/28/16 20:49:00 CDT, Stop date: 05/28/16 20:49:00 CDT Inactive 05/29/2016 [facility] Saline Flush 0.9% Notes: (Same as: BD Posiflush) No Longer Active 05/28/2016 [facility] Lovenox 40 mg/0.4 mL subcutaneous solution 40 mg, SUB-Q, Daily, 5 mL, Substitution Allowed SUB-Q Active Shawna iner 07/15/2011 [facility] nt Lovenox 80 mg, Route: SUB-Q, O NCE, Start date: 07/15/11 0:07:00, Stop date: 07/15/11 0:07:00 SUB-Q No Longer Active Q[place] 07/15/2011 [facility] hydromorphone 0.5 mg, 0.25 mL, Route: IVP, Drug form: INJ, ONCE, Priority: STAT, Start date: 07/15/11 0:02:00, Stop date: 07/15/11 0:02:00 IVP No Longer Active Qulin 07/15/2011 [facility] Coumadin 10 mg oral tablet 10 mg, 1 tab, PO, Daily, 30 tab, Substitution Allowed, TAB PO Active [facility] iner 07/15/2011 [facility] nt Lovenox 80 mg/0.8 mL subcutaneous solution 80 mg, 0.8 ml, SUB-Q, Daily, 4 mL, Substitution Allowed, SOLN SUB-Q Active Qulin 07/15/2011 [facility] Lovenox 80 mg, 0.8 mL, Route: IV, Drug form: INJ, ONCE, Start date: 07/14/11 23:02:00, Stop date: 07/14/11 23:02:00 IV No Longer Active Qulin 07/15/2011 [facility] ondansetron 4 mg, 2 mL, Route: IVP, Drug form: INJ, ONCE, Priority: STAT, Start date: 07/14/11 20:30:00, Stop date: 07/14/11 20:30:00 IVP No Longer Active Qulin 07/15/2011 [facility] Cornish 5/325 oral tablet 2 tab, Route: PO, Drug Form: TAB, ONCE, Start date: 07/14/11 19:23:00, Stop date: 07/14/11 19:23:00 PO No Longer Active Qulin [facility] Benadryl Substitution Allowed Active 07/14/2011 [facility] nter Unknown Home Medication Substi tution Allowed Active 07/14/2011 [facility] Dilantin Substitution Allowed Active 07/14/2011 [facility] nter Zanaflex Substitution Allowed Active 07/14/2011 [facility] nter Unknown Home Medication Substi tution Allowed Active 07/14/2011 [facility] Lyrica Substitution Allowed Active 07/14/2011 [facility] nt Unknown Home Medication Substi tution Allowed Active 07/14/2011 [facility] ondansetron 4 mg, Route: IVP, Drug form: INJ, ONCE, Priority: STAT, Start date: 07/14/11 18:16:00, Stop date: 07/14/11 18:16:00 IVP No Longer Active [place] 06/20 [facility] aspirin 325 mg tablet 325 mg, 1 tab, Route: PO, Drug form: TAB, ONCE, Priority: STAT, Start date: 07/14/11 17:49:00, Stop date: 07/14/11 17:49:00 PO No Longer Active [place] 07/14/2011 [facility] nter hydromorphone 1 mg, 0.5 mL, Ro yuly: IVP, Drug form: INJ, ONCE, Priority: STAT, Start date: 07/14/11 17:28:00, Stop date: 07/14/11 17:28:00 IVP No Longer Active [place] 07/14/2011 [facility] influenza virus vaccine, inactivated 0.5 mL, Route: IM, Drug Form: SUSP, Start date: 05/31/11 9:00:00, Stop date: 05/31/11 9:00:00 IM No Longer Active [facility] 05/20 [facility] Allergies, Adverse Reactions, Alerts Substance Category Reaction Severity Reaction type Status Date Reported Comments Source prochlorperazine Assertion Drug allergy Active [facility] Immunizations Immunization Date Given Site Status Last Updated Comments Source influenza virus vaccine, inactivated 11/29/2011 Right deltoid completed [facility] influenza virus vaccine, inactivated 05/31/2011 Not Given [facility] Results Order Name Results Value Reference Range Date Interpretation Comments Source URINE AND STOOL UA Urobilinogen <=1.0 mg/dL 0.1 - 1.0 07/09/2018 [facility] URINE AND STOOL UA Spec Grav 1.026 <=1.030 07/09/2018 [facility] URINE AND STOOL UA Glucose Negative mg/dL Negative mg/dL 07/09/[address] [facility] [address] URINE AND STOOL UA Protein Negative mg/dL Negative mg/dL 07/09/[address] [facility] [address] URINE AND STOOL UA Blood Moderate *ABN* (07/09/18 5:29 PM) Negative 07/09/2018 [facility] URINE AND STOOL UA pH 6.0 5.0 - 8.0 07/09/2018 [facility] URINE AND STOOL UA Nitrite Negative (07/09/18 5:29 PM) Negative 07/09/2018 [facility] URINE AND STOOL UA Ketones Negative mg/dL Negative mg/dL 07/09/[facility]INE AND STOOL UA Bili Negative *NA* [...] Bacteria Moderate /HPF None Seen /HPF 07/09/[address] [facility] [address] URINE AND STOOL UA Mucus Moderate /LPF None Seen /LPF 07/09/2018 [facility] URINE AND STOOL UA Urobilinogen <=1.0 mg/dL 0.1 - 1.0 07/09/2018 [facility] URINE AND STOOL UA RBC >182 0 - 2 07/09/2018 [facility] URINE AND STOOL UA Blood Large *ABN* (07/09/18 4:13 PM) Negative 07/09/2018 [facility] URINE AND STOOL UA Nitrite Negative (07/09/18 4:13 PM) Negative 07/09/2018 [facility] URINE AND STOOL UA [place] Yeast Many /HPF None Seen /HPF 07/09/2018 [facility] URINE AND STOOL UA Ketones Negative mg/dL Negative mg/dL 07/09[facility] URINE AND STOOL UA Bili Negative *NA* (07/09/18 4:13 PM) Negative 07/09/2018 [facility] URINE AND STOOL UA Glucose 50 mg/dL Negative mg/dL 07/09/2018 [facility] URINE AND STOOL UA Protein 100 mg/dL Negative mg/dL 07/09/2018 [facility] URINE AND STOOL UA Spec Grav 1.043 <=1.030 07/09/2018 [facility] URINE AND STOOL UA Turbidity Marked *ABN* (07/09/18 4:13 PM) Clear 07/09/2018 [facility] URINE AND STOOL UA pH 6.0 5.0 - 8.0 07/09/2018 [facility] CARDIAC ENZYMES Troponin-I <0.02 0.00 - 0.40 07/09/2018 [facility] CHEM PANEL Phosphorus 3.5 2.5 - 4.5 07/09/2018 [facility] CHEM PANEL Magnesium Lvl 2.5 1.8 - 2.4 07/09/2018 [facility] CHEM PANEL Bili Indirect 0.3 0.0 - 1.0 07/09/2018 [facility] CHEM PANEL Bili Direct 0.1 0.0 - 0.3 07/09/2018 [facility] CHEM PANEL Alk Phos 83 39 - 136 07/09/2018 [facility] CHEM PANEL Bili Total 0.4 0.2 - 1.3 07/09/2018 [facility] CHEM PANEL AST 21 0 - 37 07/09/2018 [facility] CHEM PANEL Albumin Lvl 3.0 3.5 - 5.0 07/09/2018 [facility] CHEM PANEL Globulin 4.3 2.7 - 4.2 07/09/2018 [facility] CHEM PANEL A/G Ratio 0.7 0.7 - 1.6 07/09/2018 [facility] CHEM PANEL ALT 24 0 - 65 07/09/2018 [facility] CHEM PANEL Total Protein 7.3 6.4 - 8.4 07/09/2018 [facility] ELECTROLYTES AGAP 12.5 10.0 - 20.0 07/09/2018 [facility] ELECTROLYTES eGFR 88 07/09/2018 Result Comment: [...] should be multiplied by the estimated BMI. [facility] ELECTROLYTES CO2 24 24 - 32 07/09/2018 [facility] ELECTROLYTES Calcium Lvl 8.4 8.5 - 10.5 07/09/2018 [facility] ELECTROLYTES Potassium Lvl 3.5 3.5 - 5.1 07/09/2018 [facility] ELECTROLYTES Chloride Lvl 105 95 - 109 07/09/2018 [facility] ELECTROLYTES Creatinine Lvl 0.7 4 0.50 - 1.40 07/09/2018 [facility] ELECTROLYTES Sodium Lvl 138 135 - 145 07/09/2018 [facility] ELECTROLYTES Glucose Lvl 121 70 - 99 07/09/2018 [facility] ELECTROLYTES BUN 17 7 - 22 07/09/2018 [facility] HEMATOLOGY Basophils # 0.1 0.0 - 0.2 07/09/2018 [facility] HEMATOLOGY Eosinophils # 0.4 0.0 - 0.5 07/09/2018 [facility] HEMATOLOGY Basophils 1.0 0.0 - 1.0 07/09/2018 [facility] HEMATOLOGY Neutrophils # 3.7 1.5 - 8.1 07/09/2018 [facility] HEMATOLOGY Lymphocytes # 2.5 1.0 - 5.5 07/09/2018 [facility] HEMATOLOGY Monocytes # 0.5 0.0 - 0.8 07/09/2018 [facility] HEMATOLOGY Lymphocytes 35.3 20.0 - 40.0 07/09/2018 [facility] HEMATOLOGY Monocytes 6.8 2.0 - 12.0 07/09/2018 [facility] HEMATOLOGY Eosinophils 6.1 0.0 - 4.0 07/09/2018 [facility] HEMATOLOGY Segs 50.8 45.0 - 75.0 07/09/2018 [facility] MPV 8.2 7.4 - 10.4 07/09/2018 [facility] Platelet 241 133 - 450 07/09/2018 [facility] HEMATOLOGY MCV 95.2 80.0 - 98.0 07/09/2018 [facility] HEMATOLOGY MCH 32.3 27.0 - 31.0 07/09/2018 [facility] HEMATOLOGY Hct 37.1 36.0 - 48.0 07/09/2018 [facility] HEMATOLOGY Hgb 12.6 12.0 - 16.0 07/09/2018 [facility] MCHC 33.9 32.0 - 36.0 07/09/2018 [facility] RDW 13.8 11.5 - 14.5 07/09/2018 [facility] HEMATOLOGY WBC 7.2 3.7 - 10.4 07/09/2018 [facility] HEMATOLOGY RBC 3.90 4.20 - 5.40 07/09/2018 [facility] LIPIDS VLDL 28 07/09/2018 [facility] LIPIDS LDL (Calculated) 102 <=99 mg/dL 07/09/2018 [facility] LIPIDS Trig 141 <=149 mg/dL 07/09/2018 [facility] LIPIDS HDL 50 >=61 mg/dL 07/09/2018 [facility] LIPIDS Chol 180 <=199 mg/dL 07/09/2018 [facility] LIPIDS CHD Risk 3.60 3.90 - 5.80 07/09/2018 [facility] CARDIAC ENZYMES Troponin-I <0.02 0.00 - 0.40 07/09/2018 [facility] CARDIAC ENZYMES Troponin-I <0.02 0.00 - 0.40 07/08/2018 [facility] CARDIAC ENZYMES CK MB <1.0 0.5 - 3.6 07/08/2018 [facility] CARDIAC ENZYMES Total CK 96 12 - 191 07/08/2018 [facility] CARDIAC ENZYMES BNP 9 <=100 pg/mL 07/08/2018 [facility] CARDIAC ENZYMES CK MB Index <1.0 0.0 - 2.5 07/08/2018 [facility] CHEM PANEL eGFR 66 07/08/2018 Result Comment: [...] PANEL BUN 14 7 - 22 07/08/2018 [facility] CHEM PANEL Chloride Lvl 107 95 - 109 07/08/2018 [facility] CHEM PANEL CO2 26 24 - 32 07/08/2018 [facility] CHEM PANEL Potassium Lvl 3.4 3.5 - 5.1 07/08/2018 [facility] CHEM PANEL Glucose Lvl 144 70 - 99 07/08/2018 [facility] CHEM PANEL Globulin 4.9 2.7 - 4.2 07/08/2018 [facility] CHEM PANEL B/C Ratio 15 6 - 25 07/08/2018 [facility] CHEM PANEL Alk Phos 91 39 - 136 07/08/2018 [facility] CHEM PANEL Bili Total 0.2 0.2 - 1.3 07/08/2018 [facility] CHEM PANEL AGAP 9.4 10.0 - 20.0 07/08/2018 [facility] CHEM PANEL A/G Ratio 0.7 0.7 - 1.6 07/08/2018 [facility] CHEM PANEL Total Protein 8.3 6.4 - 8.4 07/08/2018 [facility] CHEM PANEL Calcium Lvl 8.7 8.5 - 10.5 07/08/2018 [facility] CHEM PANEL AST 19 0 - 37 07/08/2018 [facility] CHEM PANEL Albumin Lvl 3.4 3.5 - 5.0 07/08/2018 [facility] CHEM PANEL ALT 26 0 - 65 07/08/2018 [facility] CHEM PANEL Sodium Lvl 139 135 - 145 07/08/2018 [facility] CHEM PANEL Creatinine Lvl 0.93 0.50 - 1.40 07/08/2018 [facility] HEMATOLOGY PTT 30.1 22.9 - 35.8 07/08/2018 [facility] HEMATOLOGY INR 1.39 0.85 - 1.17 07/08/2018 [facility] HEMATOLOGY PT 16.8 12.0 - 14.7 07/08/2018 [facility] HEMATOLOGY MPV 8.3 7.4 - 10.4 07/08/2018 [facility] HEMATOLOGY Platelet 271 133 - 450 07/08/2018 [facility] HEMATOLOGY RDW 13.8 11.5 - 14.5 07/08/2018 [facility] HEMATOLOGY MCV 94.2 80.0 - 98.0 07/08/2018 [facility] HEMATOLOGY Hgb 13.4 12.0 - 16.0 07/08/2018 [facility] Hct 39.1 36.0 - 48.0 07/08/2018 [facility] MCHC 34.2 32.0 - 36.0 07/08/2018 [facility] MCH 32.2 27.0 - 31.0 07/08/2018 [facility] RBC 4.15 4.20 - 5.40 07/08/2018 [facility] WBC 10.0 3.7 - 10.4 07/08/2018 [facility] HEMATOLOGY Monocytes # 0.5 0.0 - 0.8 07/08/2018 [facility] HEMATOLOGY Neutrophils # 6.2 1.5 - 8.1 07/08/2018 [facility] HEMATOLOGY Eosinophils # 0.4 0.0 - 0.5 07/08/2018 [facility] HEMATOLOGY Lymphocytes # 2.8 1.0 - 5.5 07/08/2018 [facility] Basophils # 0.1 0.0 - 0.2 07/08/2018 [facility] Lymphocytes 28.2 20.0 - 40.0 07/08/2018 [facility] Eosinophils 4.2 0.0 - 4.0 07/08/2018 [facility] Basophils 0.7 0.0 - 1.0 07/08/2018 [facility] Segs 61.6 45.0 - 75.0 07/08/2018 [facility] Monocytes 5.3 2.0 - 12.0 07/08/2018 [facility] URINE AND STOOL UA Urobilinogen <=1.0 mg/dL 0.1 - 1.0 05/29/2016 [facility] URINE AND STOOL UA Bacteria Many /HPF None Seen /HPF 05/29/2016 [facility] URINE AND STOOL UA Mucus Few /LPF None Seen /LPF 05/29/2016 [facility] URINE AND STOOL UA Bili Negative *NA* (05/28/16 9:30 PM) Negative 05/29/2016 [facility] URINE AND STOOL UA Blood Large *ABN* (05/28/16 9:30 PM) Negative 05/29/2016 [facility] URINE AND STOOL UA Ketones Negative mg/dL Negative mg/dL 05/29/2016 [facility] URINE AND STOOL UA Turbidity Marked *ABN* (05/28/16 9:30 PM) Clear 05/29/2016 [facility] URINE AND STOOL UA Color Yellow *NA* (05/28/16 9:30 PM) Yellow 05/29/2016 [facility] URINE AND STOOL UA Spec Grav 1.018 <=1.030 05/29/2016 [facility] URINE AND STOOL UA Glucose Negative mg/dL Negative mg/dL 05/29/2016 [facility] URINE AND STOOL UA pH 6.0 5.0 - 8.0 05/29/2016 [facility] URINE AND STOOL UA Protein 30 mg/dL Negative mg/dL 05/29/2016 [facility] URINE AND STOOL UA WBC 10 0 - 5 05/29/2016 [facility] URINE AND STOOL UA RBC >182 0 - 2 05/29/2016 [facility] URINE AND STOOL UA Nitrite Positive *ABN* (05/28/16 9:30 PM) Negative 05/29/2016 [facility] URINE AND STOOL UA Leuk Est Large *ABN* (05/28/16 9:30 PM) Negative 05/29/2016 [facility] URINE AND STOOL UA Sq Epi Many /LPF Few /LPF 05/29/2016 [facility] CARDIAC ENZYMES Troponin-I <0.02 0.00 - 0.40 05/28/2016 [facility] CARDIAC ENZYMES Total CK 141 12 - 191 05/28/2016 [facility] CARDIAC ENZYMES CK MB 1.8 0.5 - 3.6 05/28/2016 [facility] CARDIAC ENZYMES CK MB Index 1.3 0.0 - 2.5 05/28/2016 [facility] CHEM PANEL eGFR 70 05/28/2016 Result [...] should be multiplied by the estimated BMI. [facility] CHEM PANEL AST 15 0 - 37 05/28/2016 [facility] CHEM PANEL ALT 21 0 - 65 05/28/2016 [facility] CHEM PANEL Albumin Lvl 3.4 3.5 - 5.0 05/28/2016 [facility] CHEM PANEL Total Protein 7.8 6.4 - 8.4 05/28/2016 [facility] CHEM PANEL Calcium Lvl 8.6 8.5 - 10.5 05/28/2016 [facility] CHEM PANEL A/G Ratio 0.8 0.7 - 1.6 05/28/2016 [facility] CHEM PANEL AGAP 17.3 10.0 - 20.0 05/28/2016 [facility] CHEM PANEL Globulin 4.4 2.7 - 4.2 05/28/2016 [facility] CHEM PANEL B/C Ratio 24 6 - 25 05/28/2016 [facility] CHEM PANEL Bili Total 0.3 0.2 - 1.3 05/28/2016 [facility] CHEM PANEL Alk Phos 90 39 - 136 05/28/2016 [facility] CHEM PANEL Glucose Lvl 152 70 - 99 05/28/2016 [facility] CHEM PANEL Potassium Lvl 3.3 3.5 - 5.1 05/28/2016 [facility] CHEM PANEL Chloride Lvl 104 95 - 109 05/28/2016 [facility] CHEM PANEL Sodium Lvl 141 135 - 145 05/28/2016 [facility] CHEM PANEL CO2 23 24 - 32 05/28/2016 [facility] CHEM PANEL Creatinine Lvl 0.90 0.50 - 1.40 05/28/2016 [facility] CHEM PANEL BUN 22 7 - 22 05/28/2016 [facility] CHEM PANEL Lipase Lvl 83 73 - 393 05/28/2016 [facility] HEMATOLOGY RDW 13.3 11.5 - 14.5 05/28/2016 [facility] HEMATOLOGY Platelet 258 133 - 450 05/28/2016 [facility] HEMATOLOGY MPV 8.2 7.4 - 10.4 05/28/2016 [facility] HEMATOLOGY MCHC 34.2 32.0 - 36.0 05/28/2016 [facility] HEMATOLOGY MCH 31.6 27.0 - 31.0 05/28/2016 [facility] HEMATOLOGY Hgb 13.3 12.0 - 16.0 05/28/2016 [facility] HEMATOLOGY MCV 92.4 80.0 - 98.0 05/28/2016 [facility] HEMATOLOGY Hct 38.9 36.0 - 48.0 05/28/2016 [facility] HEMATOLOGY RBC 4.21 4.20 - 5.40 05/28/2016 [facility] HEMATOLOGY WBC 9.3 3.7 - 10.4 [...] HEMATOLOGY Monocytes 5.6 2.0 - 12.0 05/28/2016 [facility] CHEMISTRY Lipase Lvl 107 73 - 393 07/14/2011 Normal [facility] CHEMISTRY Total CK 39 12 - 191 07/14/2011 Normal [facility] CHEMISTRY Troponin-I <0.02 0.00 - 0.40 07/14/2011 Normal [facility] CHEMISTRY Myoglobin 10 25 - 72 07/14/2011 LOW [facility] CHEMISTRY Chloride Lvl 102 95 - 109 07/14/2011 Normal [facility] CHEMISTRY BUN 18 7 - 22 07/14/2011 Normal [facility] CHEMISTRY Glucose Lvl 95 70 - 99 07/14/2011 Normal <sup>1</sup>Interpretive Data: Adult ref erence range values reflect the clinical guidelines of the [employer]. [facility] CHEMISTRY CO2 25 24 - 32 07/14/2011 Normal [facility] CHEMISTRY Calcium Lvl 9.0 8.5 - 10.5 07/14/2011 Normal [facility] CHEMISTRY Creatinine Lvl 0.7 0.5 - 1.4 07/14/2011 Normal [facility] CHEMISTRY Sodium Lvl 139 135 - 145 07/14/2011 Normal [facility] CHEMISTRY Potassium Lvl 4.2 3.5 - 5.1 07/14/2011 Normal [facility] CHEMISTRY AGAP 16.2 10.0 - 20.0 07/14/2011 Normal [facility] CHEMISTRY Etoh (%) <0.003 07/14/2011 NA <sup>2</sup>Interpretive Data: Negative Range: <0.003% Toxic Range: >0.25% [facility] CHEMISTRY Ethanol Lvl <3 07/14/2011 NA <sup>3</sup>Interpretive Data: Negative Range: <3 mg/dL Toxic Range: >250 mg/dL [facility] HEMATOLOGY Platelet 286 133 - 450 07/14/2011 Normal [facility] HEMATOLOGY RDW 13.1 11.5 - 14.5 07/14/2011 Normal [facility] HEMATOLOGY MCHC 34.3 32.0 - 36.0 07/14/2011 Normal [facility] HEMATOLOGY MPV 8.0 7.4 - 10.4 07/14/2011 Normal [facility] HEMATOLOGY Hgb 13.6 12.0 - 16.0 07/14/2011 Normal [facility] HEMATOLOGY MCH 31.7 27.0 - 31.0 07/14/2011 HI [facility] HEMATOLOGY MCV 92.5 81.0 - 99.0 07/14/2011 Normal [facility] HEMATOLOGY Hct 39.7 36.0 - 48.0 07/14/2011 Normal [facility] HEMATOLOGY RBC 4.29 4.20 - 5.40 07/14/2011 Normal [facility] HEMATOLOGY WBC 14.1 3.7 - 10.4 07/14/2011 [facility] HEMATOLOGY INR 0.93 0.85 - 1.17 07/14/2011 Normal <sup>4</sup>Interpretive Data: RECOMMEND ED RANGES FOR PROTIME INR: 2.0-3.0 for most medical and surgical thromboembolic states. 2.5-3.5 for artificial heart valves and recurrent embolism. INR SHOULD BE USED ONLY FOR PATIENTS ON STABLE ANTICOAGULANT THERAPY. [facility] HEMATOLOGY PTT 22.9 22.9 - 35.8 07/14/2011 Normal <sup>5</sup>Interpretive Data: Heparin T herapeutic Range: 57 - 92 Seconds [facility] HEMATOLOGY PT 12.5 12.0 - 14.7 07/14/2011 Normal [facility] HEMATOLOGY Plt Morph Leanne l (07/14/2011 17:29:00) 07/14/2011 Normal [facility] HEMATOLOGY RBC Morph Leanne l (07/14/2011 17:29:00) 07/14/2011 Normal [facility] HEMATOLOGY Segs-Bands # 10.5 1.5 - 8.1 07/14/2011 HI [facility] HEMATOLOGY Lymphocytes # 2.9 1.0 - 5.5 07/14/2011 Normal [facility] HEMATOLOGY Basophils # 0.0 0.0 - 0.2 07/14/2011 [facility] HEMATOLOGY Eosinophils # 0.2 0.0 - 0.5 07/14/2011 [facility] HEMATOLOGY Basophils 0.0 0.0 - 1.0 07/14/2011 [facility] HEMATOLOGY Eosinophils 1.6 0.0 - 4.0 07/14/2011 [facility] HEMATOLOGY Monocytes 3.9 2.0 - 12.0 07/14/2011 [facility] HEMATOLOGY Lymphocytes 20.3 20.0 - 40.0 07/14/2011 [facility] HEMATOLOGY Monocytes # 0.5 0.0 - 0.8 07/14/2011 [facility] HEMATOLOGY Segs 74.2 45.0 - 75.0 07/14/2011 [facility] IMMUNOLOGY CDC-HIV 1/2 Ab Negat capo *NA* (07/14/2011 16:52:00) Negati ve 07/14/2011 NA [facility] Pathology Reports No Data Provided for This [...] control -Adjustment of the mA and/or kV accordin g to patient size -Use of iterative reconstruction technCelltrix ue CT Radiation Dose DLP 358.86 mGy-cm FINDINGS: [...] No neck mass or fluid collection. SL: BMUSTAFMelvina 07/09/2018 [facility] Chest 2 views DX Patient Name: JEUSS ASCENCIO : 1955; Age: 63 years Female MR: [id number] Study: Chest 2 views DX Order Time: [...] represent mild pulmonary edema or pneumonia. SL: [id number] 07/08/2018 [facility] Ext Upper Venous Doppler Unilat US [...] right upper extremity DVT. SL: MADDI 07/08/2018 [facility] Chest Pulmonary Embolism CTA Patient Name: JESUS ASCENCIO : 1955; Age: 63 years y/o Female MR: [id number] * COMPUTED TOMOGRAPHY SCAN OF THE CHEST [...] control. -Adjustment of the mA and/or kV accordin g to patient size. -Use of iterative reconstruction techniq ue. CT radiation dose DLP: 958.89 mGy-cm IMPRESSION: 1. No evidence of pulmonary embolism. 2. No evidence of an active or acute pro cess within the chest. A hazy density bases is felt to represent dependent atelectasis. There are no pleural effusions. There is no pneumothorax. 3. No suspicious pulmonary nodules or ma sses or hilar/mediastinal adenopathy. No is made a tiny (2 mm) granuloma in the upper portion of the right middle lobe (image 42 of series 2). 4. The heart is normal in size. There is no pericardial effusion. 5. The thoracic aorta is unremarkable. T here are no significant atherosclerotic changes, aneurysm, or dissection. 6. There are mild scattered degenerativ e changes involving the thoracic spine. The regional skeleton is otherwise unremarkable. 7. Left subclavian single lumen Port-A-C ath terminates in the lower superior vena cava. SL: MARYANN 07/08/2018 [facility] Shoulder series DX Exam: Right Shoulder series DX Clinical Indication: - shoulder pain, history of gastric malignancy Comparison: None FINDINGS: 3 views of the right shoulder are perfor med. No acute fracture identified. The glenohumeral and acromioclavicular joints are anatomically aligned. Moderate degenerative changes present in the acromioclavicular joint. The visualized scapula and clavicle are unremarkable. The soft tissues are unremarkable. No radiopaque foreign body. IMPRESSION: 1. No acute osseous abnormality of the right shoulder. 2. Moderate AC joint degenerative arthr opathy. SL: JCHILD-PC 01/12/2018 [facility] Brain wo contrast CT CT HEAD W ITHOUT CONTRAST Clinical Indication: - fall, L CARROLL, [...] of acute intracranial abnormality. SL: UKUDRATH-M 01/10/2018 [facility] Ext Upper Venous Doppler Unilat US [...] Negative right upper extremity venous Doppler. SL: MCHAWMADY-RENETTA 01/10/2018 [facility] Chest Pulmonary Embolism CTA CT ANGIOGRAM [...] control -Adjustment of the mA and/or kV accordin g to patient size -Use of iterative reconstruction technCelltrix ue CT Radiation Dose DLP 986 mGy-cm FINDINGS: [...] 1. No CT evidence of acute pulmonary emb olism. No acute CT abnormalities of the lungs, mediastinum or pleural spaces are detected. 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 SL: JANUARY 01/10/2018 [facility] Pulmonary Embolism CTA Clinical Indication: Shortness [...] Omnipaque was used for the exam. Dose: DLP = 747.88 mGy-cm FINDINGS: LUNG PARENCHYMA AND PLEURA: Dependent [...] of pulmonary embolism. 2. Dependent atelectasis within bilater al lower lobes. No focal lung consolidation, pleural effusion or pneumothorax. SL: KPATEL-M 05/29/2016 [facility] ED Abdomen/Pelvis IV contrast only CT Patient Name: JESUS ASCENCIO : 1955; Age: 61 years y/o Female MR: [id number] Study: ED Abdomen/Pelvis IV contrast only CT [...] 1. No acute abnormality at the abdomen o r pelvis. 2. Chronic appearing cystitis at the benigno tral aspect of the urinary bladder accentuated by incomplete distention. 3. Status post cholecystectomy and hyste rectomy. Postoperative change at the proximal sigmoid colon. 4. No small bowel obstruction. 5.Tiny fat filled right spigelian hernia is noted without incarceration (series 5, image [id number]). Tiny fat filled umbilical hernia without incarceration. 6.A 4 mm noncalcified pulmonary nodule i s noted at the dorsal lateral right lower lobe (series 5, image 2). 7. Diffuse fatty infiltration of the demetruis er and pancreas. 8. Lower lumbar facet arthrosis. SL: PJOHNSROLANDO 05/29/2016 [facility] Chest 1view DX Study: Chest 1v iew DX 05/28/2016 5:54 PM CDT Patient Name: JESUS ASCENCIO MR: [id number] : 1955; Age: 61 years y/o Female [...] IMPRESSION: 1. No acute abnormality as above discus sed. SL: TPAINTER-PC 05/28/2016 [facility] Consultation Notes No Data Provided for This Section Discharge Summaries No Data Provided for This Section History and Physicals No Data Provided for This Section Vital Signs Vital Sign Value Date Comments Source Temperature Oral (F) 98.3 F 07/09/2018 [facility] Heart Rate 63 07/09/2018 [facility] Respitory Rate 18 07/09/2018 [facility] Systolic (mm Hg) 125 07/09/2018 [facility] Diastolic (mm Hg) 83 07/09/2018 [facility] Respitory Rate 17 07/09/2018 [facility] Heart Rate 58 07/09/2018 [facility] Systolic (mm Hg) 100 07/09/2018 [facility] Diastolic (mm Hg) 65 07/09/2018 [facility] Temperature Oral (F) 98.2 F 07/09/2018 [facility] Systolic (mm Hg) 92 07/09/2018 [facility] Diastolic (mm Hg) 64 07/09/2018 [facility] Temperature Oral (F) 97.9 F 07/09/2018 [facility] Respitory Rate 17 07/09/2018 [facility] Heart Rate 61 07/09/2018 [facility] BMI Calculated 28.4 07/09/2018 [facility] Weight 72.727 07/09/2018 [facility] Height 160.02 cm 07/09/2018 [facility] BMI Calculated 28.4 07/08/2018 [facility] Weight 72.727 07/08/2018 [facility] Height 160.02 cm 07/08/2018 [facility] Temperature Oral (F) 98.4 F 05/29/2016 [facility] Systolic (mm Hg) 117 05/29/2016 [facility] Diastolic (mm Hg) 61 05/29/2016 [facility] Respitory Rate 16 05/29/2016 [facility] Systolic (mm Hg) 127 05/29/2016 [facility] Diastolic (mm Hg) 65 05/29/2016 [facility] Respitory Rate 15 05/29/2016 [facility] Heart Rate 60 05/29/2016 [facility] Respitory Rate 15 05/29/2016 [facility] Systolic (mm Hg) 144 05/29/2016 [facility] Diastolic (mm Hg) 67 05/29/2016 [facility] Height 160.02 cm 05/28/2016 [facility] BMI Calculated 24.85 05/28/2016 [facility] Weight 63.636 05/28/2016 [facility] Temperature Oral (F) 98.6 F 05/28/2016 [facility] Heart Rate 77 05/28/2016 [facility] Height 160.02 cm 07/14/2011 [facility] Weight 72.727 07/14/2011 [facility] Encounters Location Location Details Encounter Type Encounter Number Reason For Visit Attending Provider ADM Date DC Date Status Source [facility] Emergency [id number] CARA JOSEPHLAND 07/14/2011 07/15/2011 Discharged [facility] Emergency [id number] Eugene Alvarez 05/28/2016 05/29/2016 [facility] Observation [id number] Donald Barrett Jr 07/08/2018 07/10/2018 [facility] Procedures Procedure Code Date Perfomer Comments Source section [id number] [facility] st Assessment and Plan Assessment and Plan Date Source Extracted from:Title: Clinical Document Author: Meghann Callaway MD Date: 07/09/18 [facility] Initial Cardiology Consultation Note Reason [...] this morning. 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 She has [...] PO Bedtime 07/09/18 PHENobarbital 30 mg PO Breakfas t 07/09/18 citalopram 20 mg PO Daily 07/09/18 pantoprazole (Protonix) 40 mg P O Daily 07/09/18 phenytoin (Dilantin) 300 mg PO Bedtime 07/09/18 phenytoin (Dilantin) 100 mg PO QAM 07/09/18 pregabalin (Lyrica) 75 mg PO Da vandana 07/09/18 sodium chloride (Saline Flush 0 .9%) 10 ml IVP Q12H 07/09/18 warfarin 5 mg PO Daily Unscheduled Meds (1): 05/20/19 pneumococcal 23-valent vaccine 0.5 mL IM ONCALL PRN Meds (4): 07/09/18 ketOROLAC 15 mg IVP Q6H 07/09/18 morphine Sulfate 4 mg IVP Q4H 07/09/18 nitroglycerin (nitroglycerin SL Tab) 0.4 mg SL Q5Min 07/09/18 sodium chloride (Saline Flush 0 .9%) 10 ml IVP PRN One Time Meds (1): 07/08/18 (Completed) ketOROLAC 15 mg IV P ONCE Continuous Infusions: None Home medication: Citalopram [...] 07:09) Heart Rate Peripheral 61 bpm (JULY 09:09) Resp Rate 17 BRMIN (JULY 09:09) SBP 92 mmHg (JULY 09:09) DBP 64 mmHg (JULY 09 07:09) SpO2 93 % (JULY 09:09) Weight 72.727 kg (JULY 08:12) Height 160.02 cm (JULY 08:12) BMI 28.4 (JULY 08:12) I/O Intake Output Balance 07/08/2018 7a-3p 0.00 [...] the consult. Call with questions. Extracted from:Title: [facility] Light Out Examiner History and Physical Author: Lauryn Cox MD [...] greater than 40 minutes. Lauryn Cox MD Light Out Examiner 07/10/2018 [facility] Plan of Care No Data Provided for This Section Social History Social History Date Source Social History TypeResponse Smoking Status Never smoker; Exposure to Tobacco Smoke None; Cigarette Smoking Last 365 Days No; Reg Smoking Cessation Counseling No entered on: 07/08/18 07/09/2018 [facility] Family History No Data Provided for This Section Advance Directives No Data Provided for This Section Functional Status No Data Provided for This Section
--- OUTSIDE RECORDS SUMMARY | 2019-09-23 21:06 | XMS REPORT | Clinical Summary ---
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 Active Problems Problem Noted Date Dysphagia 05/31/2018 Pyelonephritis 05/30/2018 Hematemesis with nausea 05/29/2018 Overview: Added automatically from request for laurent dominguezery [id number] Hematemesis, presence of nausea not specified 2018 Overview: Added automatically from request for laurent dominguezery [id number] Coronary artery disease Diabetes mellitus Hyperlipidemia Hypertension Pulmonary emboli Seizures Stroke (cerebrum) Social History Date Tobacco Use Types Packs/Day Years Used Never Smoker Smokeless Tobacco: Never Used Alcohol Use Drinks/Week oz/Week Comments No Alcohol Habits Answer Date Recorded How often do you have a drink containing alcohol? Never 05/29/2018 How many drinks containing alcohol do you have on No t asked a typical day when you are drinking? How often do you have six or more drinks on one Not asked occasion? Sex Assigned at Date Recorded Not on file Industry Job Start Date Occupation Not on file Not on file Not on file Travel End Travel History Travel Start No recent travel history available. Last Filed Vital Signs Not on file Plan of Treatment Not on file Results Not on fileafter 09/22/2018 Insurance Payer Benefit Subscriber ID Type Phone Address Plan / Group [employer] x[employer] Contracted ALL Advance Directives For more information, please contact: [address] [address] Date Inactivated Comments Code Status Date Activated 06/03/2018 11:35 PM Full Code 05/30/2018 2:52 AM This code status was determined by: Patient
[2019-09-23 21:07] LABS: BASOPHILS % 0.6 % (0.0-1.0); EOSINOPHILS # (AUTO) 0.4 (0.0-0.4); HEMATOCRIT 39.6 % (34.2-44.1); HEMOGLOBIN 13.1 g/dL (12.0-16.0); LYMPHOCYTES # (AUTO) 2.8 (1.0-3.2); LYMPHOCYTES % 38.8 % (18.0-39.1); MEAN CORPUSCULAR HEMOGLOBIN 30.7 pg (28-32); MEAN CORPUSCULAR HGB CONC 33.1 g/dL (31-35); MEAN CORPUSCULAR VOLUME 92.7 fL (81-99); MONOCYTES # (AUTO) 0.6 (0.2-0.8); MONOCYTES % 8.5 % (4.4-11.3); NEUTROPHILS # (AUTO) 3.4 (2.1-6.9); NEUTROPHILS % 46.8 % (38.7-80.0); PLATELET COUNT 203 x10e3/uL (140-360); RED BLOOD COUNT 4.27 x10e6/uL (3.6-5.1)
--- OUTSIDE RECORDS SUMMARY | 2019-09-23 21:08 | XMS REPORT | Continuity of Care Document ---
Author Author [facility] t Organization [facility] Address [address] [place] [address] Phone Unavailable Care Team Providers Care Senior Cost Estimator Name Role Phone MD ELISHA CHATTERJEE MD PCP Yuri ALANIS Attphys Unavailable Tobias UNGER Attphys Unavailable NIKKO OCONNOR Attphys Unavailable Ramses Barrett Jr Attphys NITIN VAZQUEZ Attphys Unavailable Mariam Fraga Attphys NIKKO OCONNOR Admphys Unavailable Ramses Barrett Jr Admphys DAVID COX Admphys Unavailable Payers Payer Name Policy Type Policy Number Effective Date Expiration Date S cade Ammansivantvanessa Integranet [id number] 2018 00:00:00 [facility] [employer] [id number] 1993 00:00:00 I [facility] Problems Condition Name Condition Details Condition Category Status Onset Date Resolution Date Last Treatment Date Treating Clinician Comments Source CHEST PAIN IN ADULT,ARM PAIN,RT,SOB-SHOR CHEST PAIN IN ADULT,ARM PAIN,RT,SOB-SHOR Active 07/08/2018 [facility] Diagnosis Ac tive 2018-07-08 00:00:00 2018-07-11 12:54:00 [facility] VOMITING / ARM PAIN VOMI TING / ARM PAIN Active 07/08/2018 [facility] Diagnosis Active 2018-07-08 00:00:00 2018-07-08 18:10:00 [facility] Dysphagia Dysphagia Disease Active 2018-05-31 00:00:00 [facility] Pyelonephritis Pyelonephritis Disease Active 2018-05-30 00:00:00 [facility] Hematemesis, presence of nausea not specified Hemateme sis, presence of nausea not specified Disease Active 2018-05-29 00:00:00 Overview: Added automatically from request for surgery [id number] [facility] NOSEBLEED/COUGHING UP BLOOD NO SEBLEED/COUGHING UP BLOOD Active 01/10/2018 [facility] Diagnosis Active 2018-01-10 00:00:00 2018-01-10 22:12:00 [facility] COUMADIN TOXICITY COUM FREDDIE TOXICITY Active 01/10/2018 [facility] Diagnosis Active 2018-01-10 00:00:00 2018-05-18 14:04:00 [facility] ABD PAIN ABD PAIN Active 05/28/2016 [facility] Diagnosis Active 2016-05-28 00:00:00 2017-09-13 14:52:00 [facility] Chest pain Chest pain Problem Active 2015-02-13 00:00:00 [facility] Cerebral infarction CVA (cerebral infarction) Problem Active 2014-09-10 00:00:00 [facility] SENT BY SENT BY Active 07/14/2011 [facility] Diagnosis Active 2011-07-14 00:00:00 2011-07-14 18:22:00 [facility] Abdominal pain Abdominal pain Problem Active [facility] Nausea and vomiting Problem Active [facility] Hyperlipidemia Hyperlipidemia Disease Active [facility] Anxiety Anxi ety Active Problem 07/17/2011 [facility] Problem Active 2011-07-17 08:40:48 Evens natalie Rollins Back pain Back pain Active Problem 07/17/2011 [facility] Problem Active 2011-07-17 08:40:48 Diony Rollins Chest pain Ches t pain Active Problem 07/17/2011 [facility] Problem Active 2011-07-17 08:40:48 Diony Rollins Deep vein thrombosis Deep vein thrombosis Active Problem 07/17/2011 [facility] Problem Active 2011-07-17 08 :40:48 Diony Rollins Depression Depr ession Active Problem 07/17/2011 [facility] Problem Active 2011-07-17 08:40:48 Diony Rollins Dysmenorrhea Dysm enorrhea Active Problem 07/17/2011 [facility] Problem Active 2011-07-17 08:40:48 Diony Rollins Fracture of knee-cap Frac ture of knee-cap Active Problem 07/17/2011 [facility] Problem Active 2011-07-17 08 :40:48 Diony Rollins Hay fever Hay fever Active Problem 07/17/2011 [facility] Problem Active 2011-07-17 08:40:48 Diony Rollins Incontinence Inco ntinence Active Problem 07/17/2011 [facility] Problem Active 2011-07-17 08:40:48 Diony Rollins Migraine Migr olaf Active Problem 07/17/2011 [facility] Problem Active 2011-07-17 08:40:48 [facility] Nausea and vomiting Naus ea and vomiting Active Problem 07/17/2011 [facility] Problem Active 2011-07-17 08 :40:48 Diony Rollins Neck pain Neck pain Active Problem 07/17/2011 [facility] Problem Active 2011-07-17 08:40:48 Diony Rollins Osteoarthritis Oste oarthritis Active Problem 07/17/2011 [facility] Problem Active 2011-07-17 08:40:48 Diony Rollins Panic disorder Marion c disorder Active Problem 07/17/2011 [facility] Problem Active 2011-07-17 08:40:48 Diony Rollins Pulmonary embolism Pulm onary embolism Active Problem 07/17/2011 [facility] Problem Active 2011-07-17 08 :40:48 Diony Rollins Seizure Seiz ure Active Problem 07/17/2011 [facility] Problem Active 2011-07-17 08:40:48 Evens Rollins Shoulder pain Shou lder pain Active Problem 07/17/2011 [facility] Problem Active 2011-07-17 08:40:48 Diony Rollins Stroke Stro ke Active Problem 07/17/2011 [facility] Problem Active 2011-07-17 08:40:48 Evens Rollins Suicide attempt Suic chad attempt Active Problem 07/17/2011 [facility] Problem Active 2011-07-17 08:40:48 Diony Rollins UTI - Urinary tract infection UTI - Urinary tract infection Active Problem 07/17/2011 [facility] Problem Active 2011-07-17 08:40:48 Diony Rollins Anxiety (finding) Anxi ety (finding) Active Problem 07/11/2018 [facility] Problem Active 2018-07-11 23:56:43 Diony Rollins Backache (finding) Back ache (finding) Active Problem 07/11/2018 [facility] Problem Active 2018-07-11 23:56:43 Diony Rollins Deep venous thrombosis (disorder) Deep venous thrombosis (disorder) Active Problem 07/11/2018 [facility] Problem Active 2018-07-11 23:56:43 Diony Rollins Depressive disorder (disorder) Depressive disorder (disorder) Active Problem 07/11/2018 [facility] Problem Active 2018-07-11 23:56:43 Diony Rollins Diabetes mellitus (disorder) D iabetes mellitus (disorder) Active Problem 07/11/2018 [facility] Problem Active 2018-07-11 23:56:43 Diony Rollins Dysmenorrhea (disorder) Dysm enorrhea (disorder) Active Problem 07/11/2018 [facility] Problem Active 2018-07-11 23:56:4 3 Diony oRllins Epilepsy (disorder) Epil epsy (disorder) Active Problem 07/11/2018 [facility] Problem Active 2018-07-11 23:56:43 Diony Rollins Fracture of patella (disorder) Fracture of patella (disorder) Active Problem 07/11/2018 [facility] Problem Active 2018-07-11 23:56:43 Diony Rollins Allergic rhinitis due to pollen (disorder) Allergic rhinitis due to pollen (disorder) Active Problem 07/11/2018 [facility] Problem Active 2018-07-11 23:56:43 Andrade Rollins Hypertensive disorder, systemic arterial (disorder) Hypertensive disorder, systemic arterial (disorder) Active Problem 07/11/2018 [facility] Problem Active 2018-07-11 23:56:43 [facility] Incontinence (finding) Inco ntinence (finding) Active Problem 07/11/2018 [facility] Problem Active 2018-07-11 23:56:4 3 [facility] Malignant tumor of colon (disorder) Malignant tumor of colon (disorder) Active Problem 07/11/2018 [facility] Problem Active 2018-07-11 23:56:43 [facility] Migraine (disorder) Migr olaf (disorder) Active Problem 07/11/2018 [facility] Problem Active 2018-07-11 23:56:43 [facility] Neck pain (finding) Neck pain (finding) Active Problem 07/11/2018 [facility] Problem Active 2018-07-11 23:56:43 Diony Rollins Osteoarthritis (disorder) Oste oarthritis (disorder) Active Problem 07/11/2018 [facility] Problem Active 2018-07-11 23:5 6:43 [facility] Panic disorder (disorder) Marion c disorder (disorder) Active Problem 07/11/2018 [facility] Problem Active 2018-07-11 23:5 6:43 [facility] Pulmonary embolism (disorder) Pulmonary embolism (disorder) Active Problem 07/11/2018 [facility] Problem Active 2018-07-11 23:56:43 [facility] Seizure (finding) Seiz ure (finding) Active Problem 07/11/2018 [facility] Problem Active 2018-07-11 23:56:43 [facility] Shoulder pain (finding) Shou lder pain (finding) Active Problem 07/11/2018 [facility] Problem Active 2018-07-11 23:56:4 3 [facility] Sleep apnea (finding) Slee p apnea (finding) Active Problem 07/11/2018 [facility] Problem Active 2018-07-11 23:56:4 3 [facility] Cerebrovascular accident (disorder) Cerebrovascular accident (disorder) Active Problem 07/11/2018 [facility] Problem Active 2018-07-11 23:56:43 Diony Rollins Suicide attempt (disorder) Bella cide attempt (disorder) Active Problem 07/11/2018 [facility] Problem Active 2018-07-11 23:56:43 [facility] Urinary tract infectious disease (disorder) Urinary tract infectious disease (disorder) Active Problem 07/11/2018 [facility] Problem Active 2018-07-11 23:56:43 [facility] Coronary arteriosclerosis (disorder) Coronary arteriosclerosis (disorder) Active Problem 07/11/2018 [facility] Problem Active 2018-07-11 23:56:43 [facility] CHEST PAIN, UNSPECIFIED CHES T PAIN, UNSPECIFIED Active [facility] Diagnosis Active 2018-07-11 12:54:00 [facility] PA[facility] IN RIGHT ARM PAIN IN RIGHT ARM Active [facility] Diagnosis Active 2018-07-11 12:54:00 [facility] SHORTNESS OF BREATH SHOR TNESS OF BREATH Active [facility] Diagnosis Active 2018-07-11 12:54:00 [facility] [place] POISONING BY ANTICOAGULANTS, ACCIDENTAL, POISONING BY ANTICOAGULANTS, ACCIDENTAL, Active [facility] Diagnosis Active 2018-05-18 14:04:00 [facility] Urinary tract infection, site not specified Urinary tract infection, site not specified 05/29/2016 06/01/2016 [facility] Problem 2016-05-29 05:00:00 2016-06-01 02:33:09 2016-06-01 02:33:09 [facility] Allergies, Adverse Reactions, Alerts Allergy Name Allergy Type Status Severity Reaction(s) Onset Date Inacti ve Date Treating Clinician Comments Source Ceftriaxone Allergy to substance Active Mild HIVES 2019-08-18 00:00:00 [facility] prochlorperazine DA Active U 2019-04-22 00:00:00 [facility] promethazine DA Active U 2019-04-22 00:00:00 [facility] No Known Allergies DA Active U 2019-04-21 00:00:00 [facility] codeine DA Active [place] 2018-08-04 00:00:00 [facility] acetaminophen DA Active [place] 2018-08-04 00:00:00 [facility] prochlorperazine maleate DA Active [place] 2018-07-30 00:00:00 [facility] ceftriaxone DA Active [place] 2018-07-30 00:00:00 [facility] prochlorperazine maleate DA Active [place] 2018-06-29 00:00:00 [facility] ceftriaxone DA Active [place] 2018-06-29 00:00:00 [facility] Prochlorperazine Edisylate Propensity to adverse reactions Active [place] 2018-05-29 00:00:00 [facility] No Known Allergies DA Active U 2017-12-26 00:00:00 [facility] prochlorperazine maleate DA Active [place] 2017-10-18 00:00:00 [facility] ceftriaxone DA Active [place] 2017-10-18 00:00:00 [facility] prochlorperazine prochlorperazine Active [facility] Social History Social Habit Start Date Stop Date Quantity Comments Source History SDOH Alcohol Std Drinks [facility] History SDOH Alcohol Binge [facility] Sex Assigned At [facility] History SDOH Alcohol Frequency 2018-05-29 00:00:00 2018-05-29 00:00:0 0 1 [facility] Smoking Status Start Date Stop Date Source Social History [facility] Medications Ordered Medication Name Filled Medication Name Start Date Stop Da te Current Medication? Ordering Clinician Indication Dosage Frequency Signature (SIG) Comments Components Source Dilantin 2018-07-10 02:00:00 No Notes: (Same as: Dilantin) Do not open, crush, or chew. [facility] Phenobarbital 2018-07-10 02:00:00 No Notes: (Same as: Lexie Simon, Brooke) [facility] Lipitor 2018-07-10 02:00:00 No Notes: (Same As: Lipitor) [facility] Acetaminophen 300 MG / Codeine Phosphate 30 MG Oral Tablet [Tylenol with Codeine #3] 2018-07-09 23:18:26 Yes 1 tab, PO, Q6H, PRN Pain, X 7 day, # 28 tab, 0 Refill(s) [facility] Acetaminophen 300 MG / Codeine Phosphate 30 MG Oral Tablet [Tylenol with Codeine #3] 2018-07-09 23:13:00 No 1 tab, PO, Q6H, PRN Pain, X 7 day, # 28 tab, 0 Refill(s), given to patient Juancarlosor alessia Rollins Warfarin 2018-07-09 22:00:00 No Notes: Nurse to ensure documentation of patient education per anticoagulation policy. Avoid large intake of vitamin-K containing foods diet. WASTE: F/P - P Waste Black; E - P Waste Black (Same As: Coumadin) [facility] atorvastatin 10 mg oral tablet 2018-07-09 19:42:00 Yes 20 mg = 2 tab, PO, Bedtime, 0 Refill(s) [facility] fernanda Lyrica 2018-07-09 14:00:00 No Notes: (Same as: Lyrica) [facility] Dil[facility]in 2018-07-09 14:00:00 No Notes: (Same as: Dilantin) Do not open, crush, or chew. [facility] Omeprazole 2018-07-09 14:00:00 No 20 mg, Route: PO, Daily, Dosing Weight 72.727, kg, Start date: 07/09/18 9:00:00 CDT, Duration: 30 day, Stop date: 08/07/18 9:00:00 CDT [facility] denisse Citalopram 2018-07-09 14:00:00 No 20 mg, 2 tab, Route: PO, Drug form: TAB, Daily, Dosing Weight 72.727, kg, Start date: 07/09/18 9:00:00 CDT, Duration: 30 day, Stop date: 08/07/18 9:00:00 CDT [facility] Saline Flush 0.9% 2018-07-09 14:00:00 No Notes: (Same as: BD Posiflush) [facility] Protonix 2018-07-09 14:00:00 No Notes: Tablet should not be chewed or crushed. (Same as: Protonix) [facility] Phenobarbital 2018-07-09 13:00:00 No Notes: (Same as: Lexie Simon, Solfoton) [facility] Morphine 2018-07-09 07:11:00 No Not es: (Same as:MORPhine Sulfate) [facility] Ketorolac 2018-07-09 05:03:00 No 4 days. [facility] Saline Flush 0.9% 2018-07-09 05:02:00 No Notes: (Same as: BD Posiflush) [facility] Nitroglycerin 2018-07-09 05:02:00 No Notes: (Same as:Nitroquick, Nitrostat) "Do Not Crush" Sublingual tablet [facility] pneumococcal capsular polysaccharide typ e 1 vaccine / pneumococcal capsular polysaccharide type 10A vaccine / pneumococcal capsular polysaccharide type 11A vaccine / pneumococcal capsular polysaccharide type 12F vaccine / pneumococcal capsular polysacchar 2018-07-09 04:16:45 No Notes: (Same as: Pneumovax 23) [facility] Diony salcedo Ketorolac 2018-07-09 02:35:00 No 15 mg, Route: IVP, Drug form: INJ, ONCE, Dosing Weight 72.727, kg, Priority: STAT, Start date: 07/08/18 21:35:00 CDT, Stop date: 07/08/18 21:35:00 CDT Wy rolf Rollins warfarin (COUMADIN) 5 MG tablet 2018-06-03 00:00:00 Yes Use 5 mg PO daily Sunday through Sunday, use 2.5 mg (1/2 tab of 5 mg) po Sat and Sun. [facility] phenytoin (DILANTIN) 100 MG ER capsule 2018-05-30 13:31:27 Yes 100mg QD Take 100 mg by mouth every morning . [facility] PHENobarbital (LUMINAL) 30 MG tablet 2018-05-30 13:31:27 Ye s 90mg QD Take 90 mg by mouth nightly. [facility] phenytoin (DILANTIN) 100 MG ER capsule 2018-05-30 13:31:26 Yes 300mg QD Take 300 mg by mouth nightly. [facility] PHENobarbital (LUMINAL) 30 MG tablet 2018-05-30 13:31:26 Ye s 30mg QD Take 30 mg by mouth every morning. [facility] insulin glargine (LANTUS) 100 unit/mL injection 2018-05-30 10:09 :50 Yes Inject subcutaneously 3 (three) times daily before devan ls Sliding scale. [facility] tiZANidine (ZANAFLEX) 4 MG tablet 2018-05-30 05:39:51 Yes 4mg Take 4 mg by mouth every 6 (six) hours as needed. [facility] ondansetron (ZOFRAN) 4 MG tablet 2018-05-30 05:39:50 Yes 4mg Take 4 mg by mouth 2 (two) times daily as needed for Nausea. [facility] PARoxetine (PAXIL) 20 MG tablet 2018-05-30 05:39:50 Yes 20mg QD Take 20 mg by mouth every morning. [facility] phenazopyridine (PYRIDIUM) 100 MG tablet 2018-05-30 05:39:50 Yes 100mg Take 100 mg by mouth 3 (three) times daily as needed for Pain. [facility] traMADol (ULTRAM) 50 mg tablet 2018-05-30 05:39:50 Yes 50mg Take 50 mg by mouth every 6 (six) hours as needed for Pain. [facility] pregabalin (LYRICA) 100 MG capsule 2018-05-30 05:39:49 Yes 100mg QD Take 100 mg by mouth daily. [facility] magnesium oxide (MAG-OX) 400 mg (241.3 mg magnesium) tablet 2018-05-30 05:39:49 Yes 400mg QD Take 400 mg by mouth daily. [facility] mesalamine (LIALDA) 1.2 gram EC tablet 2018-05-30 05:39:49 Yes 1200mg Take 1,200 mg by mouth daily with breakfast. [facility] metoclopramide (REGLAN) 5 MG tablet 2018-05-30 05:39:49 Yes 5mg QD Take 5 mg by mouth daily. [facility] nitroglycerin (NITROSTAT) 0.4 MG SL tablet 2018-05-30 05:39:[address] 0.4 mg under the tongue every 5 (f capo) minutes as needed for Chest pain Put 1 pill under tongue every 5min as needed for chest pain.No more than 3 doses in 15min.Call 911 if pain is unrelieved 5min after 1st dose . [facility] insulin 70/30, insulin NPH-insulin regul ar, (HUMULIN 70/30) 100 unit/mL (70-30) InPn insulin pen 2018-05-30 05:39:49 Yes 1U Inject 1-10 Units subcutaneously 2 (two) times daily before meals. [facility] HYDROcodone-acetaminophen (NORCO 10-325) 10-325 mg per table t 2018-05-30 05:22:53 Yes 1{tbl} Take 1 tab let by mouth every 6 (six) hours as needed for Pain. [facility] hydrocortisone 2.5 % cream 2018-05-30 05:22:53 Yes Q.5D Apply topically 2 (two) times daily. [facility] dicyclomine (BENTYL) 20 mg tablet 2018-05-30 05:22:52 Yes 20mg QD Take 20 mg by mouth daily. [facility] diphenhydrAMINE (BENADRYL) 25 mg tablet 2018-05-30 04:28:16 Yes 25mg Take 25 mg by mouth every 4 (four) hours as needed for Itching or Sleep. [facility] Ondansetron Hcl (Zofran*) 4 Mg TABLET Ondansetron Hcl (Zofra n*) 4 Mg TABLET 2018-04-01 07:41:00 Yes 4 Every 4 Hour s as needed for Nausea/Vomiting [facility] Pantoprazole Sodium (Protonix) 40 Mg TABLET. Pantopr azole Sodium (Protonix) 40 Mg TABLET. 2018-04-01 07:41:00 2018-08-11 00:00:00 No 40 Every 12 Hours [facility] tramadol hydrochloride 50 MG Oral Tablet 2016-05-29 07:18:00 Yes 50 mg = 1 tab, PO, Q12H, PRN Pain, X 10 day, # 20 tab, 0 Refill(s) Diony Rollins tramadol hydrochloride 50 MG Oral Tablet 2016-05-29 06:57:00 No 50 mg, Route: PO, Drug form: TAB, ONCE, Dosing Weight 63.636, kg, Priority: STAT, Start date: 05/29/16 1:57:00 CDT, Stop date: 05/29/16 1:57:00 CDT Diony Rollins ciprofloxacin 500 mg oral tablet 2016-05-29 06:39:00 Yes 500 mg = 1 tab, PO, Q12H, X 10 day, # 20 tab, 0 Refill(s) Diony Rollins Diphenhydramine 2016-05-29 04:59:00 No 25 mg, Route: IVP, ONCE, Dosing Weight 63.636, kg, Priority: STAT, Start date: 05/28/16 23:59:00 CDT, Stop date: 05/28/16 23:59:00 CDT Maryellen Rollins Prednisone 2016-05-29 04:59:00 No 60 mg, Route: PO, Drug form: TAB, ONCE, Dosing Weight 63.636, kg, Priority: STAT, Start date: 05/28/16 23:59:00 CDT, Stop date: 05/28/16 23:59:00 CDT Wy rolf Rollins Ciprofloxacin 2016-05-29 04:59:00 No 400 mg, Route: IVPB, ONCE, Dosing Weight 63.636, kg, Priority: STAT, Start date: 05/28/16 23:59:00 CDT, Stop date: 05/28/16 23:59:00 CDT Maryellen Rollins Ceftriaxone 2016-05-29 04:04:00 No 1 gm, Route: IVPB, Drug form: PDR/INJ, ONCE, Dosing Weight 63.636, kg, Priority: STAT, Start date: 05/28/16 23:04:00 CDT, Stop date: 05/28/16 23:04:00 CDT [facility] Ondansetron 2016-05-29 03:22:00 No 4 mg, Route: IVP, Drug form: INJ, ONCE, Dosing Weight 63.636, kg, Priority: STAT, Start date: 05/28/16 22:22:00 CDT, Stop date: 05/28/16 22:22:00 CDT Wy rolf Rollins Morphine 2016-05-29 03:22:00 No 4 mg, Route: IVP, ONCE, Dosing Weight 63.636, kg, Priority: STAT, Start date: 05/28/16 22:22:00 CDT, Stop date: 05/28/16 22:22:00 CDT [facility] Ondans[facility] 2016-05-29 01:49:00 No 4 mg, Route: IVP, Drug form: INJ, ONCE, Dosing Weight 63.636, kg, Priority: STAT, Start date: 05/28/16 20:49:00 CDT, Stop date: 05/28/16 20:49:00 CDT Wy rolf Rollins Morphine 2016-05-29 01:49:00 No 4 mg, Route: IVP, ONCE, Dosing Weight 63.636, kg, Priority: STAT, Start date: 05/28/16 20:49:00 CDT, Stop date: 05/28/16 20:49:00 CDT [facility] Saline Flush 0.9% 2016-05-28 22:54:00 No Notes: (Same as: BD Posiflush) Diony Rollins Lovenox 40 mg/0.4 mL subcutaneous solution 2011-07-15 05:1 4:39 Yes Rosie Tobias [place] 40 mg, SUB-Q, Daily, 5 mL, Substitution Allowed Diony Rollins Lovenox 2011-07-15 05:07:00 No Rosie Collado Jeremy 80 mg, Route: SUB-Q, ONCE, Start date: 07/15/11 0:07:00, Stop date: 07/15/11 0:07:00 Diony Rollins hydromorphone 2011-07-15 05:02:00 No Rosie Collado Jeremy 0.5 mg, 0.25 mL, Route: IVP, Drug form: INJ, ONCE, Priority: STAT, Start date: 07/15/11 0:02:00, Stop date: 07/15/11 0:02:00 [facility] oral [facility] 2011-07-15 04:03:52 Yes Meghan Collado Jeremy 10 mg, 1 tab, PO, Daily, 30 tab, Substitution Allowed, TAB [facility] Lovenox 80 mg/0.8 mL subcutaneous solution 2011-07-15 04:0 2:57 Yes Rosie Tobias Jeremy 80 mg, 0.8 ml, SUB-Q, Daily, 4 mL, S ubstitution Allowed, SOLN [facility] Lovenox 2011-07-15 04:02:00 No Rosie Collado [place] 80 mg, 0.8 mL, Route: IV, Drug form: INJ, ONCE, Start date: 07/14/11 23:02:00, Stop date: 07/14/11 23:02:00 [facility] ondansetron 2011-07-15 01:30:00 No Rosie Matosiner 4 mg, 2 mL, Route: IVP, Drug form: INJ, ONCE, Priority: STAT, Start date: 07/14/11 20:30:00, Stop date: 07/14/11 20:30:00 [facility] [place] adilene [place] 5/325 oral tablet 2011-07-15 00:23:00 No Rosie L Jeremy 2 tab, Route: PO, Drug Form: TAB, ONCE, Start date: 07/14/11 19:23:00, Stop date: 07/14/11 19:23:00 [facility] Benadryl 2011-07-14 23:20:37 Yes Substitutio n Allowed [facility] Unknown Home Medication 2011-07-14 23:20:20 Yes Substitution Allowed [facility] Dilantin 2011-07-14 23:20:06 Yes Substitutio n Allowed [facility] Zanaflex 2011-07-14 23:19:59 Yes Substitutio n Allowed [facility] Unknown Home Medication 2011-07-14 23:19:43 Yes Substitution Allowed [facility] Lyrica 2011-07-14 23:19:19 Yes Substitution Allowed [facility] Unknown Home Medication 2011-07-14 23:19:08 Yes Substitution Allowed [facility] ondansetron 2011-07-14 23:16:00 No Marta Iraheta 4 mg, Route: IVP, Drug form: INJ, ONCE, Priority: STAT, Start date: 07/14/11 18:16:00, Stop date: 07/14/11 18:16:00 [facility] aspirin 325 mg tablet 2011-07-14 22:49:00 No Marta Kaplan uford 325 mg, 1 tab, Route: PO, Drug form: TAB, ONCE, Priority: STAT, Start date: 07/14/11 17:49:00, Stop date: 07/14/11 17:49:00 [facility] 2011-07-14 22:28:00 No Marta Iraheta 1 mg, 0.5 mL, Route: IVP, Drug form: INJ, ONCE, Priority: STAT, Start date: 07/14/11 17:28:00, Stop date: 07/14/11 17:28:00 [facility] influenza virus vaccine, inactivated 2011-05-31 14:00:00 No SYSTEM SYSTEM 0.5 mL, Route: IM, Drug Form : SUSP, Start date: 05/31/11 9:00:00, Stop date: 05/31/11 9:00:00 [facility] Hydrocodone Bit/Acetaminophen (Hydrocodon-Acetaminophn 10-325) 1 Each TABLET Hydrocodone Bit/Acetaminophen (Hydrocodon-Acetaminophn 10-325) 1 Each TABLET Yes 1 Every 4 Hours as needed for Pain [facility] Insulin Glargine (Lantus) 100 Units/Ml ML Insulin Glar gine (Lantus) 100 Units/Ml ML Yes Use As Directed [facility] Magnesium Oxide Magnesium Oxide Yes 400 Daily [facility] Pantoprazole Sodium (Protonix) 40 Mg TABLET. Pantopr azole Sodium (Protonix) 40 Mg TABLET. Yes 40 Daily [facility] Paroxetine Hcl Paroxetine Hcl Yes 20 Daily [facility] Phenazopyridine Hcl Phenazopyridine Hcl Yes 100 Before Meals [facility] Phenobarbital Phenobarbital Yes 30 Am [facility] Phenobarbital Phenobarbital Yes 90 Pm [facility] Phenytoin Sodium Extended (Dilantin) 100 Mg CAPSULE Ph enytoin Sodium Extended (Dilantin) 100 Mg CAPSULE Yes 100 Daily [facility] Phenytoin Sodium Extended (Dilantin) 100 Mg CAPSULE Ph enytoin Sodium Extended (Dilantin) 100 Mg CAPSULE Yes 300 Bedtime [facility] Sertraline Hcl (Zoloft) 50 Mg TABLET Sertraline Hcl (Zoloft) 50 Mg TABLET Yes 50 Daily [facility] Warfarin Sodium (Coumadin) 10 Mg TABLET Warfarin Sodium (Cou madin) 10 Mg TABLET Yes 10 Daily [facility] Zolpidem Tartrate (Ambien) 10 Mg TABLET Zolpidem Tartrate (A mbien) 10 Mg TABLET Yes 10 Bedtime as needed for Insomnia [facility] Oxycodone Hcl (Oxycontin) 30 Mg TAB.ER.12H Oxycodone H cl (Oxycontin) 30 Mg TAB.ER.12H 2018-03-28 00:00:00 No 30 Four Times Da vandana [facility] Rivaroxaban (Xarelto) 10 Mg TABLET Rivaroxaban (Xarelto) 10 Mg T ABLET 2018-03-28 00:00:00 No 10 Daily [facility] Vital Signs Vital Name Observation Time Observation Value Comments Source Body Temperature 2019-08-24 07:58:00 96.7 [degF] [facility] Weight 2019-08-18 21:55:00 183.25 [lb_av] [facility] BMI (Body Mass Index) 2019-08-18 21:55:00 32.5 kg/m2 [facility] Temperature Oral (F) 2018-07-09 20:53:00 98.3 F [facility] Heart Rate 2018-07-09 20:53:00 [facility] Respitory Rate 2018-07-09 20:53:00 [facility] Systolic (mm Hg) 2018-07-09 20:53:00 [facility] [place] Diastolic (mm Hg) 2018-07-09 20:53:00 [facility] Respitory Rate 2018-07-09 16:17:00 [facility] Heart Rate 2018-07-09 16:17:00 [facility] Systolic (mm Hg) 2018-07-09 16:17:00 [facility] Diastolic (mm Hg) 2018-07-09 16:17:00 [facility] [place] Temperature Oral (F) 2018-07-09 16:17:00 98.2 F [facility] Systolic (mm Hg) 2018-07-09 12:09:00 [facility] [place] Diastolic (mm Hg) 2018-07-09 12:09:00 [facility] [place] Temperature Oral (F) 2018-07-09 12:09:00 97.9 F [facility] Respitory Rate 2018-07-09 12:09:00 [facility] Heart Rate 2018-07-09 12:09:00 [facility] BMI Calculated 2018-07-09 04:12:00 [facility] Weight 2018-07-09 04:12:00 [facility] Height 2018-07-09 04:12:00 160.02 cm [facility] BMI Calculated 2018-07-08 18:44:00 [facility] Weight 2018-07-08 18:44:00 [facility] Height 2018-07-08 18:44:00 160.02 cm [facility] Temperature Oral (F) 2016-05-29 07:05:00 98.4 F [facility] Systolic (mm Hg) 2016-05-29 07:05:00 [facility] Diastolic (mm Hg) 2016-05-29 07:05:00 [facility] Respitory Rate 2016-05-29 07:05:00 [facility] [place] Systolic (mm Hg) 2016-05-29 03:33:00 [facility] [place] Diastolic (mm Hg) 2016-05-29 03:33:00 [facility] [place] Respitory Rate 2016-05-29 03:33:00 [facility] Heart Rate 2016-05-29 02:31:00 [facility] Respitory Rate 2016-05-29 02:31:00 [facility] Systolic (mm Hg) 2016-05-29 02:31:00 [facility] Diastolic (mm Hg) 2016-05-29 02:31:00 [facility] Height 2016-05-28 22:52:00 160.02 cm [facility] BMI Calculated 2016-05-28 22:52:00 [facility] Weight 2016-05-28 22:52:00 [facility] Temperature Oral (F) 2016-05-28 22:52:00 98.6 F [facility] Heart Rate 2016-05-28 22:52:00 [facility] Height 2011-07-14 21:45:00 160.02 cm [facility] Weight 2011-07-14 21:45:00 [facility] Procedures Procedure Date / Time Performed Performing Clinician [facility] e Computed tomography of brain without radiopaque contrast 2019-07 00:00:00 [facility] Computed tomography of abdomen and pelvis with contrast 00:00:00 [facility] APPLY FOREARM SPLINT 2019-06-15 00:00:00 [facility] EMERGENCY DEPT VISIT 2019-06-15 00:00:00 [facility] Computed tomography of brain without radiopaque contrast 2019-05 00:00:00 [facility] Computed tomography of cervical spine without contrast 2019-05-22 00:00:00 [facility] Computed tomography of abdomen and pelvis with contrast 2018 00:00:00 ERICKA UNGER [facility] Computed tomography of abdomen and pelvis with contrast 2018 00:00:00 ALEXSANDRA ARANDA [facility] Planned Activity Planned Date Details Comments Source Instructions Constipation - Adult [facility] Encounters Start Date/Time End Date/Time Encounter Type Admission Type Attendi [facility] Care Department Encounter ID Source 2019-08-21 09:19:00 2019-08-24 13:22:00 Discharged Inpatient 1 [facility] [id number] [facility] 2019-06-15 22:20:00 2019-06-16 00:05:00 Departed Emergency Room 1 UTE ERICKA [facility] [id number] I [facility] 2019-01-21 18:06:00 2019-01-21 22:08:00 Departed Emergency Room 1 [facility] [id number] [facility] 2018-11-14 16:46:00 2018-11-14 21:42:00 Departed Emergency Room 1 [facility] [id number] [facility] 2018-08-09 16:27:00 2018-08-12 19:45:00 Discharged Inpatient (obs) 1 NIKKO OCONNOR [facility] [id number] [facility] 2018-07-08 13:34:03 2018-07-09 19:24:00 Outpatient Donald Barrett [facility] [id number] 2018-07-08 21:33:00 2018-07-08 21:33:00 Outpatient [id number] 2018-03-31 18:31:00 2018-04-02 11:30:00 Discharged Inpatient 1 NIKKO OCONNOR [facility] [id number] [facility] 2017-12-28 07:41:00 2017-12-28 13:45:00 Departed Emergency Room 1 TONYA ALANIS [facility] [id number] [facility] 2016-05-28 17:46:00 2016-05-29 03:05:00 Outpatient Eugene Fraga [facility] [id number] Results Test Description Test Time Test Comments Results Result Comments Source Capillary blood glucose measurement by glucometer (mas s/volume) 2019-08-24 10:42:00 Test Item Bedside Glucose (test code = 14378-1) 128 70-120 Meter ID: [id number] Emergency HospitalProthrombin time (PT) in platelet poor plasma by coagulation skhvq2494-01-04 05:19:00* Test Item Value Reference Range Interpretation Comments Prothrombin Time (test code = 5902-2) 27.8 11.9-14.5 [facility] in Platelet poor plasma by Coagulation [id number] 05:19:00* Test Item Value Reference Range Interpretation Comments Prothromb Time International Ratio (test code = 6301-6) 2.38 Oral Anticoagulant Therapy INR Values:1. Low Intensity Therapy 1.5 - 2.02 . Moderate Intensity Therapy 2.0 - 3.03. High Intensity Therapy(1) 2.5 - 3. 54. High Intensity Therapy(2) 3.0 - 4.05. Panic Value INR > 5.0 [facility] thyrot[facility] by detection limit <= 0.005 miu/l (units/volume)2019-08-24 05:19:00* Test Item Value Reference Range Interpretation Comments Thyroid Stimulating Hormone (TSH) (test code = 26366-6) 2.340 0.350-4.940 [facility] leukocytes automated count (number/volume)2019-08-22 05:00:00* Test Item Value Reference Range Interpretation Comments White Blood Count (test code = 6690-2) 7.79 4.8-10.8 [facility] erythrocytes automated count (number/volume)2019-08-22 05:00:00* Test Item Value Reference Range Interpretation Comments Red Blood Count (test code = 789-8) 4.02 3.6-5.1 [facility] hemoglobin measurement (moles/volume)2019-08-22 05:00:00* Test Item Value Reference Range Interpretation Comments Hemoglobin (test code = 95758-3) 12.4 12.0-16.0 [facility] CenterAutomated blood hematocrit (volume fraction)2019-08-22 05:00:00* Test Item Value Reference Range Interpretation Comments Hematocrit (test code = 4544-3) 38.1 34.2-44.1 [facility] CenterAutomated erythrocyte mean corpuscular nvmhcs8205-43-49 05:00:00* Test Item Value Reference Range Interpretation Comments Mean Corpuscular Volume (test code = 787-2) 94.8 81-99 [facility] CenterAutomated erythrocyte mean corpuscular hemoglobin (mass per erythrocyte)2019-08-22 05:00:00* Test Item Value Reference Range Interpretation Comments Mean Corpuscular Hemoglobin (test code = 785-6) 30.8 28-32 [facility] CenterAutomated erythrocyte mean corpuscular hemoglobin concentration measurement (mass/volume)2019-08-22 05:00:00* Test Item Value Reference Range Interpretation Comments Mean Corpuscular Hemoglobin Concent (test code = 786-4) 32.5 31-35 [facility] CenterRD PtzMx-Mvs2608-70-03 05:00:00* Test Item Value Reference Range Interpretation Comments Red Cell Distribution Width (test code = 26989-8) 12.2 11.7 -14.4 [facility] CenterAutcarolinaeast medical centered blood platelet count (count/volume)2019-08-22 05:00:00* Test Item Value Reference Range Interpretation Comments Platelet Count (test code = 777-3) 232 140-360 [facility] neutrophil count as percentage of total kcvkjloyuw7794-53-08 05:00:00* Test Item Value Reference Range Interpretation Comments Neutrophils (%) (Auto) (test code = 30137-2) 51.1 38.7-80.0 [facility] CenterAutomated blood lymphocyte count as percentage ot total mazpypfnuv4052-12-09 05:00:00* Test Item Value Reference Range Interpretation Comments Lymphocytes (%) (Auto) (test code = 736-9) 35.8 18.0-39.1 [facility] CenterAutomated blood monocyte count as percentage of total wudepulctr6194-05-13 05:00:00* Test Item Value Reference Range Interpretation Comments Monocytes (%) (Auto) (test code = 5905-5) 6.8 4.4-11.3 [facility] CenterAutomated blood eosinophil count as percentage of total ixwtvzwnha0641-79-36 05:00:00* Test Item Value Reference Range Interpretation Comments Eosinophils (%) (Auto) (test code = 713-8) 5.4 0.0-6.0 [facility] CenterAutomated blood basophil count as percentage of total svelgobriq4091-74-17 05:00:00* Test Item Value Reference Range Interpretation Comments Basophils (%) (Auto) (test code = 706-2) 0.6 0.0-1.0 [facility] CenterFluoroscopic procedure less than one hour xkvpftsi3721-42-91 05:00:00* Test Item Value Reference Range Interpretation Comments IM GRANULOCYTES % (test code = IM GRANULOCYTES %) 0.3 0.0- 1.0 [facility] CenterAutomated blood neutrophil count 2019-08-22 05:00:00* Test Item Value Reference Range Interpretation Comments Neutrophils # (Auto) (test code = 751-8) 4.0 2.1-6.9 [facility] CenterBlood lymphocytes count (number/volume) 2019-08-22 05:00:00* Test Item Value Reference Range Interpretation Comments Lymphocytes # (Auto) (test code = 02946-8) 2.8 1.0-3.2 [facility] CenterBlood monocytes automated count (number/volume)2019-08-22 05:00:00* Test Item Value Reference Range Interpretation Comments Monocytes # (Auto) (test code = 742-7) 0.5 0.2-0.8 [facility] CenterAutomated blood eosinophil count 2019-08-22 05:00:00* Test Item Value Reference Range Interpretation Comments Eosinophils # (Auto) (test code = 711-2) 0.4 0.0-0.4 [facility] CenterAutomated blood basophil count (count/volume)2019-08-22 05:00:00* Test Item Value Reference Range Interpretation Comments Basophils # (Auto) (test code = 704-7) 0.1 0.0-0.1 [facility] CenterFluoroscopic procedure less than one hour hwpmguoo7781-03-74 05:00:00* Test Item Value Reference Range Interpretation Comments Absolute Immature Granulocyte (auto (sidney t code = Absolute Immature Granulocyte (auto) 0.02 0-0.1 [facility] Hospitalerum or plasma sodium measurement (moles/volume)2019-08-22 05:00:00* Test Item Value Reference Range Interpretation Comments Sodium Level (test code = 2951-2) 139 136-145 [facility] Hospitalerum or plasma potassium measurement (moles/volume)2019-08-22 05:00:00* Test Item Value Reference Range Interpretation Comments Potassium Level (test code = 2823-3) 3.9 3.5-5.1 [facility] Hospitalerum or plasma chloride measurement (moles/volume)2019-08-22 05:00:00* Test Item Value Reference Range Interpretation Comments Chloride Level (test code = 2075-0) 103 98-107 [facility] Hospitalerum or plasma carbon dioxide, total measurement (moles/volume)2019-08-22 05:00:00* Test Item Value Reference Range Interpretation Comments Carbon Dioxide Level (test code = 2028-9) 30 22-29 [facility] Hospitalerum or plasma anion vqe5021-12-71 05:00:00* Test Item Value Reference Range Interpretation Comments Anion Gap (test code = 40517-2) 9.9 8-16 [facility] or plasma urea nitrogen measurement (mass/volume)2019-08-22 05:00:00* Test Item Value Reference Range Interpretation Comments Blood Urea Nitrogen (test code = 3094-0) 13 7-26 [facility]erum or plasma creatinine measurement (mass/volume)2019-08-22 05:00:00* Test Item Value Reference Range Interpretation Comments Creatinine (test code = 2160-0) 0.79 0.57-1.11 [facility] Hospitalerum or plasma urea nitrogen/creatinine mass orvih8770-36-54 05:00:00* Test Item Value Reference Range Interpretation Comments BUN/Creatinine Ratio (test code = 3097-3) 16 6-25 [facility] CenterEstimated glomerular filtration rate (GFR) lfqogvlinqwyb4095-39-24 05:00:00* Test Item Value Reference Range Interpretation Comments Estimat Glomerular Filtration Rate (test code = 177669648) > 60 >60 Ranges were taken from the National Kidney Disease Education Program and the [facility] [employer] literature.Reference ranges:60 or greater: Qpcqmw80-56 ( for 3 consecutive months): Chronic kidney disease 15 or less: Kidney failureOakBend Medical CenterGlucose xloueeagkww0934-70-74 05:00:00* Test Item Value Reference Range Interpretation Comments Glucose Level (test code = YGR4428) 99 74-118 [facility] Hospitalerum or plasma calcium measurement (mass/volume)2019-08-22 05:00:00* Test Item Value Reference Range Interpretation Comments Calcium Level (test code = 65043-5) 8.3 8.4-10.2 [facility] Hospitalerum or plasma total bilirubin measurement (mass/volume)2019-08-22 05:00:00* Test Item Value Reference Range Interpretation Comments Total Bilirubin (test code = 1975-2) 0.2 0.2-1.2 [facility] CenterFluoroscopic procedure less than one hour yiojsodo9230-78-17 05:00:00* Test Item Value Reference Range Interpretation Comments Aspartate Amino Transf (AST/SGOT) (test code = Aspartate Amino Transf (AST/SGOT)) 19 5-34 [facility] Hospitalerum or plasma alanine aminotransferase measurement (enzymatic activity/volume)2019-08-22 05:00:00* Test Item Value Reference Range Interpretation Comments Alanine Aminotransferase (ALT/SGPT) (test code = 1742-6) 25 0-55 [facility] Hospitalerum or plasma protein measurement (mass/volume)2019-08-22 05:00:00* Test Item Value Reference Range Interpretation Comments Total Protein (test code = 2885-2) 6.9 6.5-8.1 [facility] Hospitalerum or plasma albumin measurement (mass/volume)2019-08-22 05:00:00* Test Item Value Reference Range Interpretation Comments Albumin (test code = 1751-7) 3.1 3.5-5.0 [facility] CenterPlasma globulin measurement (mass/volume) 2019-08-22 05:00:00* Test Item Value Reference Range Interpretation Comments Globulin (test code = 50911-2) 3.8 2.3-3.5 [facility] Hospitalerum or plasma albumin/globulin mass daakv8207-55-80 05:00:00* Test Item Value Reference Range Interpretation Comments Albumin/Globulin Ratio (test code = 1759-0) 0.8 0.8-2.0 [facility] Hospitalerum or plasma alkaline phosphatase measurement (enzymatic activity/volume)2019-08-22 05:00:00* Test Item Value Reference Range Interpretation Comments Alkaline Phosphatase (test code = 6768-6) 86 40-150 [facility] Hospitalerum or plasma creatine kinase measurement (enzymatic activity/volume)2019-08-19 13:00:00* Test Item Value Reference Range Interpretation Comments Creatine Kinase (test code = 2157-6) 39 29-168 [facility] Hospitalerum or plasma creatine kinase MB measurement (mass/volume)2019-08-19 13:00:00* Test Item Value Reference Range Interpretation Comments Creatine Kinase MB (test code = 96289-8) 0.70 0-5.0 [facility] CenterTroponin I measurement by highly sensitive enzyme ypsaqihkvky7862-13-76 13:00:00* Test Item Value Reference Range Interpretation Comments Troponin I (test code = 04644-6) < 0.001 0-0.300 [facility] Hospitalerum or plasma triglyceride measurement (mass/volume)2019-08-19 04:51:00* Test Item Value Reference Range Interpretation Comments Triglycerides Level (test code = 2571-8) 165 0-[address] [facility] or plasma cholesterol measurement (mass/volume)2019-08-19 04:51:00* Test Item Value Reference Range Interpretation Comments Cholesterol Level (test code = 2093-3) 159 0-199 Less than 200 mg/dL Low Dbrg008 - 239 mg/dL Borderline Exwk317 m g/dl and greater High Risk [facility] Hospitalerum or plasma cholesterol in LDL measurement (mass/volume) 2019-08-19 04:51:00* Test Item Value Reference Range Interpretation Comments LDL Cholesterol (test code = 2089-1) 98 60-130 [facility] Hospitalerum or plasma cholesterol in HDL measurement (mass/volume)2019-08-19 04:51:00* Test Item Value Reference Range Interpretation Comments HDL Cholesterol (test code = 2085-9) 28 40-60 [facility]er[facility] or plasma total cholesterol/cholesterol in HDL mass flyqg2048-54-19 04:51:00* Test Item Value Reference Range Interpretation Comments Cholesterol/HDL Ratio (test code = 9830-1) 5.7 3.0-3.6 [facility] CenterFluoroscopic procedure less than one hour ywriaqio3220-26-77 18:02:00* Test Item Value Reference Range Interpretation Comments Coronavirus (PCR) (test code = Coronavirus (PCR)) NOT DETECTED NOTD ETECTED SARS-COV2/RT-PCRNegative results do not preclude SARS-CoV-2 infection and should not be used as the sole basis for patient management decisions. Negative result s must be combined with clinical observations, patient history, and epidemiologi emil information. A false negative result may occur if a specimen is improperly c ollected, transported or handled.The limit of detection for this assay is 250 co pies/mLThe SARS-CoV-2 test is a rapid, real-time RT-PCR test intended for the qu alitative detection of nucleic acid from SARS-CoV-2 in nasopharyngeal swab speci men collected from individuals suspected of COVID-19 by their healthcare provide r. This test has not been Food and Drug Administration (FDA) cleared or approved and has been authorized by FDA under an Emergency Use Authorization (EUA). This EUA will be effective until the declaration that circumstances exist justifying the authorization of the emergency use of in vitro diagnostic test for detectio n and or diagnosis of COVID-19 is terminated under section 564(b) of the Act, or the the EUA is revoked under 564(g) of the ACT.Testing performed by [facility] [place], [place] [address]QZHOakBend Medical CenterCT ABDOMEN/PELVIS V5149-70-42 17:58:00 [facility] [address] [address] Patient Name: JESUS ASCENCIO MR #: [id number] : 1955 Age/Sex: 64/F Req #: [id number] Adm Physician: Ordered by: TONYA ALANIS MD Report #: [id number] Location: ER Room/Bed: Procedure: [id number] CT/CT ABDOMEN/PELV IS W Exam Date: 08/18/19 Exam Time: 1709 REPORT STATUS: Signed EXAM: CT Abdomen and Pelvis WITH contrast INDICATION: Abdominal pain, nausea and vomiting. COMP ARISON: 01/21/2019. TECHNIQUE: Abdomen and pelvis were scanned utilizing a [facility] [employer] helical scanner from the lung base to the pubic symphysis after admi nistration of IV contrast. Coronal and sagittal reformations were obtained. Ro utine protocol was performed. Scan was performed when during portal venous pha se. IV CONTRAST: 150 mL of Omnipaque [address]: Water RADIATION DOSE: Total DLP: 1722.84 mGy*cm Estimated effective dose: (DLP x 0.015 x size factor) mSv COMPLIC ATIONS: None FINDINGS: LINES and TUBES: None. LOWER THORAX: Left basilar subsegmental atelectasis. HEPATOBILIARY: The liver is diffuse hypo dense compared to the spleen, consistent with diffuse hepatic diffuse hepatic steatosis. No focal hepatic lesions. No biliary ductal dilation. GALLBL ADDER: No radio-opaque stones or sludge. No wall thickening. SPLEEN: No sp lenomegaly. PANCREAS: No focal masses or ductal dilatation. ADRENAL S: No adrenal nodules KIDNEYS/URETERS: Kidneys enhance symmetrically. No hydronephrosis. No cystic or solid mass lesions. No stones. GI TRACT: No abnormal distention, wall thickening, or evidence of bowel obstruction. M oderate volume of stool within the rectum. Anastomotic line in the region of t he rectosigmoid junction appears intact although evaluation is limited to lack of contrast. Scattered descending colon diverticula without CT evidence of ac yuly diverticulitis. Appendix is not identified. PELVIC ORGANS/BLADDER: The uterus is absent. Surgical clips in the right pelvic sidewall. LYMPH NOD ES: No lymphadenopathy. VESSELS: There is mild atherosclerotic disease in t he aorta and major arterial branches. PERITONEUM / RETROPERITONEUM: No fr ee air or fluid. BONES: Lower thoracic DISH. SOFT TISSUES: Small for c ontaining left inguinal hernia. IMPRESSION: 1. No acute abdominal pelvi c abnormality. 2. Hepatic steatosis. Signed by: Dr. Raffy Lares M.D. on 08/18/2019 6:04 PM Dictated By: OSITO LARES MD, MD Electronic ally Signed By: OSITO LARES MD, MD on 08/18/191803 Transcribed By: DARION fierro 08/18/191803 COPY TO: TONYA ALANIS MD CHEST SINGLE (PORTABLE)2019-08-18 17:54:[address] [place] [address] Patient Name: JESUS ASCENCIO MR #: [id number] : 1955 Age/Sex: 64/F Req #: [id number] Adm Physician: Ordered by: TONYA ALANIS MD Report #: [id number] Location: ER Room/Bed: Procedure: [id number] DX/CHEST SINGLE (P ORTABLE) Exam Date: 08/18/19 Exam Time: 1701 REPORT STATUS: Signed A single frontal view of the chest. HISTORY: Chest pain. COMPARISON: Rib series with chest x-ray dated 06/15/2019. DISCUSSION: Portable technique, limits sensitivity of the exam. Soft tissue attenuation partially limits sensitivity of the exam. Tubes/Lines: Left chest Port-A-Cath with distal tip projected o n the cavoatrial junction. Lungs and pleura: Improved aeration of the lungs. No evidence of a consolidative pneumonia or pulmonary alveolar edema . No definite pleural effusion or pneumothorax is identified. Heart and m ediastinum: The cardiomediastinal silhouette appear(s) unremarkable. Mark jluis and soft tissues: No acute osseous abnormality. Amorphus density project ed in the left axillary region may be overlying artifact. IMPRESSION: No acute thoracic abnormality. Signed by: Dr. Raffy Lares M.D. on 08/18/2019 5:56 PM Dictated By: OSITO LARES MD, MD Electronic ally Signed By: OSITO LARES MD, MD on 08/18/191755 Transcribed By: DARION fierro 08/18/191755 COPY TO: TONYA ALANIS MD CT BRAIN [id number] 17:39:00 [place] [address] Patient Name: JESUS ASCENCIO MR #: [id number] : 1955 Age/Sex: 64/F Req #: [id number] Adm Physician: Ordered by: TONYA ALANIS MD Report #: [id number] Location: ER Room/Bed: Procedure: [id number] CT/CT BRAIN WO Ex am Date: 08/18/19 Exam Time: 1709 REPORT STATUS: Signed History:Headaches Compar sarah studies: None Technique: Axial images were obtained from the skull base to the vertex. Coronal and sagittal images reconstructed from the axial data. Dose modulation, iterative reconstruction, and/or weight based adjustmen t of the mA/kV was utilized to reduce the radiation dose to as low as reasona jessica achievable. Intravenous contrast: None Findings: Scalp/sku ll: No abnormalities. Extra-axial spaces: No masses. No fluid collec tions. Brain sulci: Appropriate for age Ventricles: Normal in size and co nfiguration. No hydrocephalus. Parenchyma: No abnormal densities No ma sses, hemorrhage, acute or chronic cortical vascular insults. Sellar/supras ellar region: No abnormalities. Craniocervical junction: Patent foramen magnum . No Chiari one malformation. Incidental findings: Subtle atheroscleroti c calcifications in the carotid siphons. Subtle mucosal thickening in the para nasal sinuses. Impression: No intracranial abnormalities. Signed by: Dr. Mila Alonso M.D. on 08/18/2019 5:43 PM Dictated By: MILA ALONSO MD, MD 42 COPY TO: YOBANY ALANIS RD, MD Activated partial thromboplastin time (aPTT) in platelet poor plasma by coagulation [id number] 15:16:00* Test Item Value Reference Range Interpretation Comments Activated Partial Thromboplast Time (test code = 04405-0) 28.1 23.8-35.5 [facility] onyyskqqfikee1158-89-77 15:16:00* Test Item Value Reference Range Interpretation Comments Urine Color (test code = 5778-6) YELLOW YELLOW [facility] [id number] 15:16:00* Test Item Value Reference Range Interpretation Comments Urine Clarity (test code = 91626-3) SL CLOUDY CLEAR [facility] by Test strip 2019-08-18 15:16:00* Test Item Value Reference Range Interpretation Comments Urine Specific [place] (test code = 5811-5) 1.030 1.010-1.02 5 [facility] by automated test [id number] 15:16:00* Test Item Value Reference Range Interpretation Comments Urine pH (test code = 77693-6) 5.5 5-7 [facility] esterase detection by rwqxauel3666-72-11 15:16:00* Test Item Value Reference Range Interpretation Comments Urine Leukocyte Esterase (test code = 5799-2) NEGATIVE NEGATIVE [facility] nitrite qldrtlyyb4635-08-44 15:16:00* Test Item Value Reference Range Interpretation Comments Urine Nitrite (test code = 82078-7) NEGATIVE NEGATIVE [facility] protein measurement by test strip (mass/volume)2019-08-18 15:16:00* Test Item Value Reference Range Interpretation Comments Urine Protein (test code = 5804-0) NEGATIVE NEGATIVE [facility] glucose zmqbysely0079-72-05 15:16:00* Test Item Value Reference Range Interpretation Comments Urine Glucose (UA) (test code = 2349-9) 2+ NEGATIVE [facility] ketones detection by automated test usydf5364-50-91 15:16:00* Test Item Value Reference Range Interpretation Comments Urine Ketones (test code = 34316-0) NEGATIVE NEGATIVE [facility] urobilinogen measurement by test strip (mass/volume)2019-08-18 15:16:00* Test Item Value Reference Range Interpretation Comments Urine Urobilinogen (test code = 73844-5) 0.2 0.2-1 [facility] total bilirubin measurement (mass/volume)2019-08-18 15:16:00* Test Item Value Reference Range Interpretation Comments Urine Bilirubin (test code = 1978-6) NEGATIVE NEGATIVE [facility] erythrocytes hquilqrxt1727-96-69 15:16:00* Test Item Value Reference Range Interpretation Comments Urine Blood (test code = 92313-9) MODERATE NEGATIVE [facility] sediment leukocyte count by microscopy (number/high power field)2019-08-18 15:16:00* Test Item Value Reference Range Interpretation Comments Urine WBC (test code = 5821-4) NONE 0-5 [facility]ryth[facility] detection in urine sediment by light lhmouugryd3988-97-66 15:16:00* Test Item Value Reference Range Interpretation Comments Urine RBC (test code = 54077-3) 6-10 0-5 [facility] detection in urine sediment by light cfhehzirea8988-34-96 15:16:00* Test Item Value Reference Range Interpretation Comments Urine Bacteria (test code = 56981-8) FEW NONE [facility] Center[facility]pithelial cells detection in urine sediment by light nphtxebxqg9524-60-00 15:16:00* Test Item Value Reference Range Interpretation Comments Urine Epithelial Cells (test code = 04743-0) MANY NONE [facility] or plasma magnesium measurement (mass/volume)2019-08-18 15:16:00* Test Item Value Reference Range Interpretation Comments Magnesium Level (test code = 24840-5) 1.9 1.3-2.1 [facility] or plasma amylase measurement (enzymatic activity/volume)2019-08-18 15:16:00* Test Item Value Reference Range Interpretation Comments Amylase Level (test code = 1798-8) 28 25-125 [facility] or plasma lipase measurement (enzymatic activity/volume)2019-08-18 15:16:00* Test Item Value Reference Range Interpretation Comments Lipase (test code = 3040-3) 20 8-78 [facility] [id number] 23:44:00 [facility] [address] [address] Patient Name: JESUS ASCENCIO MR #: [id number] : 1955 Age/Sex: 64/F Req #: [id number] Adm Physician: Ordered by: ERICKA UNGER MD Report #: [id number] Location: Room/Bed: Procedure: [id number] CT/CT CERVICAL SPINE WO Exam Date: Exam Time: REPORT STATUS: Signed History: Statu s post fall in severe pain. Comparison studies: None Technique: Ax ial images were obtained through the cervical region.. Coronal and sagittal im ages reconstructed from the axial data. Dose modulation, iterative reconstruct ion, and/or weight based adjustment of the mA/kV was utilized to reduce the ra diation dose to as low as reasonably achievable. Intravenous contrast: No ne Findings: Fractures: None. Soft tissue injuries: None. Atlan toaxial articulation: Intact. Alignment: Loss of normal cervical lordosis is e ither positional or due to muscle spasm. No scoliosis. No subluxation. Cervi comedullary junction: No abnormalities. The foramen magnum is patent. Soft tis sues: No abnormalities. Vertebrae: No fractures, infection or neoplasm. Degenerative changes: C5-C6: Mild degenerative disc disease. Posterio r disc osteophyte complex results in mild canal stenosis. Moderate bilateral f oraminal stenosis due to uncovertebral arthrosis. C6-C7: Mild right foraminal stenosis due to uncovertebral arthrosis.. IMPRESSION: 1. No acute cer vical spine fracture or dislocation. Loss of normal cervical lordosis is eithe r positional or due to muscle spasm. 2. Ligament, spinal cord and or vascu lar abnormalities cannot be excluded on the basis of this examination. 3. Mild cervical spondylosis as detailed above. Signed by: Dr. Deondre Pacheco M.D. on 06/15/2019 11:49 PM Dictated By: LUPE PACHECO MD Chely ctronically Signed By: LUPE PACHECO MD on 06/15/192348 Transcribed By: [facility] on 06/15/192348 COPY TO: ERICKA UNGER MD RIBS UNILAT W/[id number] 23:38:00 [place] [address] Patient Name: JESUS ASCENCIO MR #: [id number] : 1955 Age/Sex: 64/F Req #: [id number] Adm Physician: Ordered by: ERICKA UNGER MD Report #: [id number] Location: ER Room/Bed: Procedure: [id number] DX/RIBS UNILAT W/CXR Exam Date: Exam Time: REPORT STATUS: Signed EXAMINATION: RIB S UNILAT W/CXR INDICATION: Fall, left rib pain. COMPARISON: Ches t radiograph 11/14/2018. FINDINGS: TUBES and LINES: Left-sided chest port with catheter tip terminating in the SVC. LUNGS: Lungs are well in flated. There is no evidence of pneumonia or pulmonary edema. PLEURA: No pleural effusion or pneumothorax. HEART AND MEDIASTINUM: The cardiomed iastinal silhouette is unremarkable. BONES AND SOFT TISSUES: No acute osseous lesion. Soft tissues are unremarkable. No evidence of left-sided rib fracture. UPPER ABDOMEN: No free air under the diaphragm. IMPRESS ION: No acute thoracic abnormality. No evidence of left-sided rib fracture. Signed by: Dr. Rafaela Pro MD on 06/15/2019 11:43 PM Dictated By: NITZA PRO MD 0696 Transcribe d By: DARION on 06/15/19 0515 COPY TO: ERICKA UNGER MD CT BRAIN [id number] 23:33:00 [place] [address] Patient Name: JESUS ASCENCIO MR #: [id number] : 1955 Age/Sex: 64/F Re #: [id number] Adm Physician: Ordered by: ERICKA UNGER MD Report #: [id number] Location: Room/Bed: Procedure: [id number] CT/CT BRAIN WO Exam Date: Exam Time: REPORT STATUS: Signed EXAMINATION: Head CT wi thout contrast. HISTORY:Status post fall. COMPARISON:Report of CT brain from 05/04/2016, prior images not available for comparison at the time o f interpretation. TECHNIQUE: Multidetector axial images were obtained from the foramen magnum to the vertex without contrast. The images were reconstruct ed using brain and bone algorithms. Thin section brain images were reformatte d into coronal and sagittal planes. Dose modulation, iterative reconstructio n, and/or weight based adjustment of the mA/kV was utilized to reduce the radi ation dose to as low as reasonably achievable. Intravenous contrast: None IMAGE QUALITY: Acceptable. FINDINGS: Skull/scalp: No lytic or blastic. lesions. No surgical changes. Parenchyma: Nonspecific few, scat tered supratentorial white matter hypodensity are likely related to small vess el ischemic changes. No acute hemorrhage, mass or acute major vascular territo rial infarct. Arteries: No density suggestive of thrombosis. Dura l sinuses: No abnormal density suggestive of thrombosis. Ventricles: Mild compensated dilatation due to volume loss. No hydrocephalus. Extra-axia l spaces: No abnormal density. Brain volume: Normal for age. Crani ocervical junction: No mass, Chiari malformation, or basilar invagination. Sella: No mass. Paranasal/mastoid sinuses: Mild mucosal thickening in bilateral ethmoid sinuses. IMPRESSION: No acute intracranial abnorma lity. Mild supratentorial white matter microvascular ischemic changes. Mild generalized cerebral volume loss. Signed by: Cinthia Overton on 06/15/2019 11:38 PM Dictated By: LUPE PACHECO MD Electronically S igned By: LUPE PACHECO MD on 06/15/192337 Transcribed By: DARION on 2337 COPY TO: ERICKA UNGER MD WRIST COMPLETE LEFT 2019-06-15 23:32:00 [place] [address] Patient Name: JESUS ASCENCIO MR #: [id number] : 1955 Age/Sex: 64/F Req #: [id number] Adm Physician: Ordered by: ERICKA UNGER MD Report #: [id number] Location: ER Room/Bed: Procedure: [id number] DX/WRIST COMPLETE LEFT Exam Date: Exam Time: REPORT STATUS: Signed Exam: Left shou lder radiographs-2 views; left wrist radiographs-3 views; left knee radiograph s-3 views History: Fall. Comparison: None. Findings: Left shou lder: No evidence of acute fracture, malalignment, or soft tissue abnormality. Moderate to severe degenerative changes of the AC joint and moderate degenera tive changes of the glenohumeral joint. Left wrist: No evidence of acute f racture or malalignment. There is soft tissue edema in the proximal hand. Mode rate radiocarpal and mild first carpometacarpal joint degenerative changes. Left knee: No evidence of acute fracture or malalignment. Mild tricompartme ntal degenerative changes. Quadriceps enthesopathy. No suprapatellar joint eff usion. Impression: No acute osseous abnormality. Degenerative change s as above. Signed by: Dr. Rafaela Pro MD on 06/15/2019 11:37 PM Dict ated By: RAFAELA PRO MD 36 Transcribed By: DARION on 06/15/192336 COPY TO: ERICKA UNGER MD KNEE LEFT THREE [id number] 23:32:00 [place] [address] Patient Name: JESUS ASCENCIO MR #: [id number] : 1955 Age/Sex: 64/F Req #: [id number] Adm Physician: Ordered by: ERICKA UNGER MD Report #: [id number] Location: ER Room/Bed: Procedure: [id number] DX/KNEE LEFT THREE VIEWS Exam Date: Exam Time: REPORT STATUS: Signed Exam: Left sh oulder radiographs-2 views; left wrist radiographs-3 views; left knee radiogra phs-3 views History: Fall. Comparison: None. Findings: Left sh oulder: No evidence of acute fracture, malalignment, or soft tissue abnormalit y. Moderate to severe degenerative changes of the AC joint and moderate degene rative changes of the glenohumeral joint. Left wrist: No evidence of acute fracture or malalignment. There is soft tissue edema in the proximal hand. Mo derate radiocarpal and mild first carpometacarpal joint degenerative changes. Left knee: No evidence of acute fracture or malalignment. Mild tricompart mental degenerative changes. Quadriceps enthesopathy. No suprapatellar joint e ffusion. Impression: No acute osseous abnormality. Degenerative lacy ges as above. Signed by: Dr. Rafaela Pro MD on 06/15/2019 11:37 PM Di ctated By: RAFAELA PRO MD 23 37 Transcribed By: DARION on 06/15/19 9347 COPY TO: ERICKA UNGER MD SHOULDER LEFT [id number] 23:32:00 [place] [address] Patient Name: JESUS ASCENCIO MR #: [id number] : 1955 Age/Sex: 64/F Req #: [id number] Adm Physician: Ordered by: ERICKA UNGER MD Report #: [id number] Location: ER Room/Bed: Procedure: [id number] DX/SHOULDER LEFT COMPLETE Exam Date: Exam Time: REPORT STATUS: Signed Exam: Left s houlder radiographs-2 views; left wrist radiographs-3 views; left knee radiogr aphs-3 views History: Fall. Comparison: None. Findings: Left s houlder: No evidence of acute fracture, malalignment, or soft tissue abnormali ty. Moderate to severe degenerative changes of the AC joint and moderate degen erative changes of the glenohumeral joint. Left wrist: No evidence of acut e fracture or malalignment. There is soft tissue edema in the proximal hand. M oderate radiocarpal and mild first carpometacarpal joint degenerative changes. Left knee: No evidence of acute fracture or malalignment. Mild tricompar tmental degenerative changes. Quadriceps enthesopathy. No suprapatellar joint effusion. Impression: No acute osseous abnormality. Degenerative nicole nges as above. Signed by: Dr. Rafaela Pro MD on 06/15/2019 11:37 PM D ictated By: RAFAELA PRO MD 2 337 Transcribed By: DARION on 06/15/19 9281 COPY TO: CARRI UNGER MD [id number] 16:48:00* Test Item Value Reference Range Interpretation Comments GLUBED (test code = GLUBED) 162 mg/dL 74-106 H Performed by certified kohinoor operator at [facility] [id number] 12:32:00* Test Item Value Reference Range Interpretation Comments GLUBED (test code = GLUBED) 120 mg/dL 74-106 H Performed by certified kohinoor operator at [facility] BASIC METABOLIC [id number] 08:09:00* Test Item Value Reference Range Interpretation Comments SODIUM (test code = NA) 139 mmol/L 136-145 N POTASSIUM (test code = K) 3.8 mmol/L 3.5-5.1 N CHLORIDE (test code = CL) 104.0 mmol/L 98-107 N CARBON DIOXIDE (test code = CO2) 28.0 mmol/L 21-32 N ANION GAP (test code = GAP) 10.8 10-20 N GLUCOSE (test code = GLU) 135 mg/dL 74-106 H BLOOD UREA NITROGEN (test code = BUN) 22 mg/dL 7-18 H GLOMERULAR FILTRATION RATE (test code = GFR) > 60 mL/min >=60 Estimated GFR by using Modified MDRD formula.Chronic kidney disease is defined as either kidney damageor GFR <60 mL/min/1.73 m2 for >3 months. CREATININE (test code = CREAT) 0.80 mg/dL 0.55-1.02 N Note change in reference range due to change in reagent. BUN/CREATININE RATIO (test code = BUN/CREA) 27.5 10-20 H CALCIUM (test code = CA) 8.3 mg/dL 8.5-10.1 L BASIC METABOLIC [id number] 07:50:00* Test Item Value Reference Range Interpretation Comments SODIUM (test code = NA) 139 mmol/L 136-145 N POTASSIUM (test code = K) 3.8 mmol/L 3.5-5.1 N CHLORIDE (test code = CL) 104.0 mmol/L 98-107 N CARBON DIOXIDE (test code = CO2) mmol/L 21-32 ANION GAP (test code = GAP) 10-20 GLUCOSE (test code = GLU) mg/dL 74-106 BLOOD UREA NITROGEN (test code = BUN) mg/dL 7-18 GLOMERULAR FILTRATION RATE (test code = GFR) mL/min >=60 CREATININE (test code = CREAT) mg/dL 0.55-1.02 BUN/CREATININE RATIO (test code = BUN/CREA) 10-20 CALCIUM (test code = CA) mg/dL 8.5-10.1 [id number] 07:47:00* Test Item Value Reference Range Interpretation Comments GLUBED (test code = GLUBED) 138 mg/dL 74-106 H Performed by certified kohinoor operator at [facility] CBC W/AUTO [id number] 07:23:00* Test Item Value Reference Range Interpretation Comments WHITE BLOOD CELL (test code = WBC) 6.2 K/mm3 4.5-12.5 N RED BLOOD CELL (test code = RBC) 3.92 mill/mm3 3.7-5.2 N HEMOGLOBIN (test code = HGB) 12.2 gram/dL 11.5-15.5 N HEMATOCRIT (test code = HCT) 37.0 % 36.0-46.0 N MEAN CELL VOLUME (test code = MCV) 94.4 fL 80-98 N MEAN CELL HGB (test code = MCH) 31.1 picogram 27.0-33.0 N MEAN CELL HGB CONCETRATION (test code = MCHC) 33.0 gram/dL 33.0-36. 0 N RED CELL DISTRIBUTION WIDTH (test code = RDW) 12.3 % 11.6-16. 2 N RED CELL DISTRIBUTION WIDTH SD (test code = RDW-SD) 42.7 fL 37 .0-51.0 N PLATELET COUNT (test code = PLT) 206 K/mm3 150-450 RESULT VERIFIED BY REPEAT ANALYSIS MEAN PLATELET VOLUME (test code = MPV) 10.1 fL 6.7-11.0 N NEUTROPHIL % (test code = NT%) 47.9 % 39.0-69.0 N IMMATURE GRANULOCYTE % (test code = IG%) 0.3 % 0.0-5.0 N LYMPHOCYTE % (test code = LY%) 37.4 % 25.0-55.0 N MONOCYTE % (test code = MO%) 7.0 % 0.0-10.0 N EOSINOPHIL % (test code = EO%) 6.6 % 0.0-5.0 H BASOPHIL % (test code = BA%) 0.8 % 0.0-1.0 N NUCLEATED RBC % (test code = NRBC%) 0.0 % 0-0 N NEUTROPHIL # (test code = NT#) 2.95 K/mm3 1.8-7.7 N IMMATURE GRANULOCYTE # (test code = IG#) 0.02 x10 3/uL 0-0.03 N LYMPHOCYTE # (test code = LY#) 2.31 K/mm3 1.0-5.0 N MONOCYTE # (test code = MO#) 0.43 K/mm3 0-0.8 N EOSINOPHIL # (test code = EO#) 0.41 K/mm3 0.0-0.5 N BASOPHIL # (test code = BA#) 0.05 K/mm3 0.0-0.2 N NUCLEATED RBC # (test code = NRBC#) 0.00 K/mm3 0.0-0.1 N [id number] 20:41:00* Test Item Value Reference Range Interpretation Comments GLUBED (test code = GLUBED) 201 mg/dL 74-106 H Performed by certified kohinoor operator at [facility] GQVJWBJW-[id number] 08:55:00* Test Item Value Reference Range Interpretation Comments TROPONIN-I (test code = TROPI) <0.015 ng/mL 0-0.045 N COMMENTS TO SCALLOP CUTTER MACHINE: COLLECT 3 HOURS AFTER PREVIOUS [id number] 06:24:00* Test Item Value Reference Range Interpretation Comments TROPONIN-I (test code = TROPI) <0.015 ng/mL 0-0.045 N COMMENTS TO SCALLOP CUTTER MACHINE: COLLECT 3 HOURS AFTER PREVIOUS [id number] 05:50:00* Test Item Value Reference Range Interpretation Comments CALCIUM (test code = CA) 8.9 mg/dL 8.5-10.1 N [id number] 05:50:00* Test Item Value Reference Range Interpretation Comments PHOSPHORUS (test code = PHOS) 3.8 mg/dL 2.5-4.9 N [id number] 05:50:00* Test Item Value Reference Range Interpretation Comments MAGNESIUM (test code = MAG) 2.3 mg/dL 1.8-2.4 N THYROID STIMULATING [id number] 05:50:00* Test Item Value Reference Range Interpretation Comments THYROID STIMULATING HORMONE (test code = TSH) 4.120 uIU/mL 0.36-3.7 4 H TSH REFERENCE RANGES: EUTHYROID: 0.35 - 4.3 mIU/mL HYPO : > 5.5 mIU/mL HYPER : < 0.35 mIU/mL B-TYPE NATRIURETIC [id number] 05:43:00* Test Item Value Reference Range Interpretation Comments B-TYPE NATRIURETIC PEPTIDE (test code = BNP) 8.3 pg/mL 0-100 N [id number] 05:37:00* Test Item Value Reference Range Interpretation Comments CALCIUM (test code = CA) 8.9 mg/dL 8.5-10.1 N [id number] 05:37:00* Test Item Value Reference Range Interpretation Comments PHOSPHORUS (test code = PHOS) mg/dL 2.5-4.9 [id number] 05:37:00* Test Item Value Reference Range Interpretation Comments MAGNESIUM (test code = MAG) 2.3 mg/dL 1.8-2.4 N THYROID STIMULATING [id number] 05:37:00* Test Item Value Reference Range Interpretation Comments THYROID STIMULATING HORMONE (test code = TSH) uIU/mL 0.36-3.7 4 - CT ABD PELVIS [id number] 23:12:00 Name: JESUS ASCENCIO [facility] : 1955 Age/S: 64 / F [address] [facility] Unit #: [id number] Loc: [place] [address] Phys: Romario Balderas MD Acct: [id number] Dis Date: Status: REG ER PHONE #: [phone] Exam Date: 04/21/2019 2300 FAX #: [phone] Reason: LUQ pain EXAMS: CPT CODE: [id number] CT ABD PELVIS W/CONT 70900 AFTER HOURS SERVICE ON: 04/21/2019 11:[address] Scan of the Abdomen and Pelvis With Contrast Location Code M12 History: LUQ pain Technique: Axial and reconstructed coronal scans were performed on a helical scanner post IV contrast. Delayed scans were also obtained. One or more of the following dose reduction techniques were used: Automated exposure control, adjustment of the mA and/or kV according to patient size, and/or utilization of iterative reconstruction technique. Findings: LIVER: Liver is hypodense consistent with steatosis. GALLBLADDER/BILIARY: Cholecystectomy. PANCREAS: No significant findings. SPLEEN: No significant findings. ADRENALS: No significant findings. KIDNEYS: No hydronephrosis. BLADDER: No significant findings. GASTROINTESTINAL: Prior sutures noted in the sigmoid colon. The jonnathan endix is not visualized. Small bowel loops are within normal limits. OTHER: Small focal area of soft tissue emphysema is noted in the subcuta neous fat of the left lower quadrant presumably an injection site. Uterus is absent.. IMPRESSION: No acute findings in the abdomen or pelvis. at 2312 Reported and signed by: Natasha Bermudez M.D. PA GE 1 Signed Report (CONTINUED) [facility] [birth year] Age/S: 64 / F [address] [facility] Unit #: [id number] Loc: [place] [address] Phys: Romario Balderas MD Acct: [id number] Dis Date: Status: REG ER PHONE #: [phone] Exam Date: 04/21/2019 2300 FAX #: [phone] Reason: LUQ pain EXAMS: CPT CODE: [id number] CT ABD PELVIS W/CONT 26968 <Continued> CC: Romario Balderas MD Technologist:PAULIE MOISE RT(R),CT CTDI: DLP: Trnscb Date/Time: 04/21/2019 (2311) JoannaMA50 Orig Print D/T: S: 04/21/2019 (6) PAGE 2 Signed Report - CTA CHEST FOR [id number] 23:10:00 Name[facility] [place] [facility] 1955 Age/S: 64 / F [address] [facility] Unit #: [id number] Loc: [place] [address] Phys: Romario Balderas MD Acct: [id number] Dis Date: Status: REG ER PHONE #: [phone] Exam Date: 04/21/2019 2300 FAX #: [phone] Reason: chest pain r/o PE EXAMS: CPT CODE: [id number] [place] [address] AFTER HOURS SERVICE ON: 04/21/2019 11:[address] Scan of the Chest With Contrast Location Code M12 History: chest pain r/o PE Technique: Scans were performed on a helical scanner post IV contrast. Coronal and sagittal reconstructions were performed. 3-D post processing was performed. One or more of the following dose reduction techniques were used: Automated exposure control, adjustment of the mA and/or kV according to patient size, and/or utilization of iterative reconstruction technique. FINDINGS: There are no filling defects in the pulmonary arteries to suggest a pulmonary embolism. No large central or saddle embolus is seen in the pulmonary trunk. No aortic aneurysm or di ssection seen. No cardiomegaly. No pericardial effusion. Mild groundglass densities noted in the lingular segment of the left upper lobe and in the left lower lobe consistent with mild pneumonitis. There is no pleural effusion, pulmonary edema or pneumothorax. IMPRESSION: No evidence of pulmonary embolism, aortic an eurysm or dissection. Mild left lower lobe and lingular pneumo nitis. at 2310 Reported and signed by: Natasha Bermudez M.D. PAGE 1 Signed Report (CONTINUED) Name: JESUS ASCENCIO [facility] : 1955 Age/S: 64 / F [address] [facility] Unit #: [id number] Loc: [place] [address] Phys: Romario Balderas MD Acct: [id number] Dis Date: S tatus: REG ER PHONE #: [phone] Exam Da te: 04/21/2019 2300 FAX #: [phone] Reason: chest pain r/o PE EXAMS: CPT CODE: [id number] [place] [address] <Continued> CC: Romario Balderas MD Technologist:PAULIE MOISE RT(R),CT CTDI: DLP: Trnscb Date/Time: 04/21/2019 (2309) [id number] Orig Print D/T: S: 04/21/2019 (2312) PAGE 2 Signed Report - XR CHEST 1 [id number] 23:03:00 Name: JESUS ASCENCIO [facility] : 1955 Age/S:64 /F [address] [facility] Unit#:[id number] Loc: [place] [address] Phys: Romario Balderas MD Dis Date: PHONE #: [phone] Status: REG ER FAX #: [phone] Exam Date: 04/21/2019 Reason: chest pain EXAMS: CPT CODE: [id number] XR CHEST 1 V 95483 AFTER HOURS SERVICE ON: 04/21/2019 11:02 PM AP Portable Chest Location Code M12 HISTORY: chest pain FINDINGS: There are no infiltrates. There are no pleural effusions. There is no pneumothorax. Cardiac silhouette and mediastinum appear within normal limits. IMPRESSION: No active pulmonary findings. at 2303 Reported and signed by: Natasha Bermudez M.D. CC: Romario Balderas MD Technologist: PAULIE MOISE RT(R),CT Trnscrpt Data: 04/21/2019 (2302) [id number] Orig Print D/T: S: 04/21/2019 (2306) PAGE 1 Signed Report PROTHROMBIN [id number] 22:10:00 * Test Item Value Reference Range Interpretation Comments PROTHROMBIN TIME PATIENT (test code = PTP) 10.0 seconds 9.0-13.0 N INTERNATIONAL NORMAL RATIO (test code = INR) 1.0 0.8-1.2 N The therapeutic range for oral anticoagulant therapy formost indications is an international normalized ratio (INR)of between 2.0 and 3.0. The recommended therapeutic INRrange for various clinical situations is listed below: Clinical Situation INR range Pulmonary e mbolism treatment (2.0-3.0)Venous thrombosis treatmentVenous thrombosis prophylaxis (high risk surgery)Prevention of systemic embolism from: Acute myocardial infarction Valvular heart disease Atrial fibrillation Mechanical prosthetic heart valves (2.5-3.5) IS PATIENT ON ANTICOAGULANTS? NTHROMBOPLASTIN TIME [id number] 22:10:00* Test Item Value Reference Range Interpretation Comments THROMBOPLASTIN TIME PARTIAL (test code = PTT) 27.4 seconds 25.5-34. 3 N Therapeutic Range for patients on Heparin Therapy is 2 to2.5 times their baseline PTT level. IS PATIENT ON ANTICOAGULANTS? NCOMPREHENSIVE METABOLIC [id number] 22:09:00 * Test Item Value Reference Range Interpretation Comments SODIUM (test code = NA) 138 mmol/L 136-145 N POTASSIUM (test code = K) 3.4 mmol/L 3.5-5.1 L CHLORIDE (test code = CL) 101 mmol/L 101-109 N CARBON DIOXIDE (test code = CO2) 26.0 mmol/L 21-32 N ANION GAP (test code = GAP) 14 mmol/L 10-20 N GLUCOSE (test code = GLU) 120 mg/dL 74-106 H BLOOD UREA NITROGEN (test code = BUN) 18 mg/dL 3-21 N CREATININE (test code = CREAT) 0.74 mg/dL 0.55-1.3 N BUN/CREATININE RATIO (test code = BUN/CREA) 24.3 10-20 H TOTAL PROTEIN (test code = PROT) 8.2 g/dL 6.5-8.4 N ALBUMIN (test code = ALB) 3.3 g/dL 3.4-4.8 L GLOBULIN (test code = GLOB) 4.9 G/DL 1-10 N ALBUMIN/GLOBULIN RATIO (test code = A/G) 0.67 RATIO 0.75-1.50 L CALCIUM (test code = CA) 9.0 mg/dL 8.4-10.2 N BILIRUBIN TOTAL (test code = BILT) 0.30 mg/dL 0.0-1.0 N SGOT/AST (test code = AST) 18 U/L 6-32 N SGPT/ALT (test code = ALT) 27 U/L 12-78 N N ote: Change in REFERENCE RANGE due to new reagent method. ALKALINE PHOSPHATASE TOTAL (test code = ALKP) 89 U/L 38-126 N [id number] 22:09:00* Test Item Value Reference Range Interpretation Comments LIPASE (test code = LIP) 96 U/L 128-270 L [id number] 22:09:00* Test Item Value Reference Range Interpretation Comments TROPONIN-I (test code = TROPI) <0.015 ng/mL 0.00-0.056 N COMPREHENSIVE METABOLIC [id number] 22:03:00* Test Item Value Reference Range Interpretation Comments SODIUM (test code = NA) 138 mmol/L 136-145 N POTASSIUM (test code = K) 3.4 mmol/L 3.5-5.1 L CHLORIDE (test code = CL) 101 mmol/L 101-109 N CARBON DIOXIDE (test code = CO2) 26.0 mmol/L 21-32 N ANION GAP (test code = GAP) 14 mmol/L 10-20 N GLUCOSE (test code = GLU) 120 mg/dL 74-106 H BLOOD UREA NITROGEN (test code = BUN) 18 mg/dL 3-21 N CREATININE (test code = CREAT) 0.74 mg/dL 0.55-1.3 N BUN/CREATININE RATIO (test code = BUN/CREA) 24.3 10-20 H TOTAL PROTEIN (test code = PROT) gram/dL 6.4-8.2 ALBUMIN (test code = ALB) g/dL 3.4-5.0 GLOBULIN (test code = GLOB) g/dL 2.7-4.2 ALBUMIN/GLOBULIN RATIO (test code = A/G) 0.75-1.50 CALCIUM (test code = CA) 9.0 mg/dL 8.4-10.2 N BILIRUBIN TOTAL (test code = BILT) mg/dL 0.2-1.2 SGOT/AST (test code = AST) IUnit/L 15-37 SGPT/ALT (test code = ALT) U/L 10-69 ALKALINE PHOSPHATASE TOTAL (test code = ALKP) IUnit/L 45-117 [id number] 22:03:00* Test Item Value Reference Range Interpretation Comments LIPASE (test code = LIP) Unit/L 144-286 [id number] 22:03:00* Test Item Value Reference Range Interpretation Comments TROPONIN-I (test code = TROPI) ng/mL 0-0.045 CBC W/AUTO [id number] 21:51:00* Test Item Value Reference Range Interpretation Comments WHITE BLOOD CELL (test code = WBC) 11.4 K/mm3 4.5-12.5 N RED BLOOD CELL (test code = RBC) 4.42 mill/mm3 3.7-5.2 N HEMOGLOBIN (test code = HGB) 13.8 gram/dL 11.5-15.5 N HEMATOCRIT (test code = HCT) 41.0 % 36.0-46.0 N MEAN CELL VOLUME (test code = MCV) 92.8 fL 80-98 N MEAN CELL HGB (test code = MCH) 31.2 picogram 27.0-33.0 N MEAN CELL HGB CONCETRATION (test code = MCHC) 33.7 gram/dL 33.0-36. 0 N RED CELL DISTRIBUTION WIDTH (test code = RDW) 11.9 % 11.6-16. 2 N RED CELL DISTRIBUTION WIDTH SD (test code = RDW-SD) 41.5 fL 37 .0-51.0 N PLATELET COUNT (test code = PLT) 266 K/mm3 150-450 N MEAN PLATELET VOLUME (test code = MPV) 10.0 fL 6.7-11.0 N NEUTROPHIL % (test code = NT%) 53.0 % 39.0-69.0 N LYMPHOCYTE % (test code = LY%) 37.5 % 25.0-55.0 N MONOCYTE % (test code = MO%) 4.8 % 0.0-10.0 N EOSINOPHIL % (test code = EO%) 3.9 % 0.0-5.0 N BASOPHIL % (test code = BA%) 0.6 % 0.0-1.0 N NEUTROPHIL # (test code = NT#) 6.05 K/mm3 1.8-7.7 N LYMPHOCYTE # (test code = LY#) 4.28 K/mm3 1.0-5.0 N MONOCYTE # (test code = MO#) 0.55 K/mm3 0-0.8 N EOSINOPHIL # (test code = EO#) 0.45 K/mm3 0.0-0.5 N BASOPHIL # (test code = BA#) 0.07 K/mm3 0.0-0.2 N MANUAL DIFF REQUIRED (test code = MDIFF) NO PROTHROMBIN [id number] 08:39:00* Test Item Value Reference Range Interpretation Comments PROTHROMBIN TIME PATIENT (test code = PTP) 12.5 seconds 9.0-14.0 N INTERNATIONAL NORMAL RATIO (test code = INR) 1.1 0.8-1.2 N The therapeutic range for oral anticoagulant therapy formost indications is an international normalized ratio (INR)of between 2.0 and 3.0. The recommended therapeutic INRrange for various clinical situations is listed below: Clinical Situation INR range Pulmonary e mbolism treatment (2.0-3.0)Venous thrombosis treatmentVenous thrombosis prophylaxis (high risk surgery)Prevention of systemic embolism from: Acute myocardial infarction Valvular heart disease Atrial fibrillation Mechanical prosthetic heart valves (2.5-3.5) IS PATIENT ON ANTICOAGULANTS? YLIST ANTICOAGULANTS COUMADIN ELIQUISSPECI MEN COMMENTS: STOPPED ANTICOAGULANTS ABOUT 3 WEEKS AGOCOMMENTS TO SCALLOP CUTTER MACHINE: IN U ASPIRINTHROMBOPLASTIN TIME [id number] 08:39:00* Test Item Value Reference Range Interpretation Comments THROMBOPLASTIN TIME PARTIAL (test code = PTT) 28.9 seconds 25.0-36. 5 N IS PATIENT ON ANTICOAGULANTS? YLGRADY ANTICOAGULANTS COUMADIN MOHINDERI MEN COMMENTS: STOPPED ANTICOAGULANTS ABOUT 3 WEEKS AGOCOMMENTS TO SCALLOP CUTTER MACHINE: IN DSU [id number] 08:36:00* Test Item Value Reference Range Interpretation Comments GLUBED (test code = GLUBED) 127 mg/dL 74-106 H Performed by certified kohinoor operator at [facility] BASIC METABOLIC [id number] 08:25:00* Test Item Value Reference Range Interpretation Comments SODIUM (test code = NA) 139 mmol/L 136-145 N POTASSIUM (test code = K) 3.5 mmol/L 3.5-5.1 N CHLORIDE (test code = CL) 104.0 mmol/L 98-107 N CARBON DIOXIDE (test code = CO2) 26.0 mmol/L 21-32 N ANION GAP (test code = GAP) 12.5 10-20 N GLUCOSE (test code = GLU) 137 mg/dL 74-106 H BLOOD UREA NITROGEN (test code = BUN) 10 mg/dL 7-18 N GLOMERULAR FILTRATION RATE (test code = GFR) > 60 mL/min >=60 Estimated GFR by using Modified MDRD formula.Chronic kidney disease is defined as either kidney damageor GFR <60 mL/min/1.73 m2 for >3 months. CREATININE (test code = CREAT) 0.70 mg/dL 0.55-1.02 N Note change in reference range due to change in reagent. BUN/CREATININE RATIO (test code = BUN/CREA) 14.3 10-20 N CALCIUM (test code = CA) 9.0 mg/dL 8.5-10.1 N SEE N BOTE ON H60CBC W/AUTO [id number] 08:10:00* Test Item Value Reference Range Interpretation Comments WHITE BLOOD CELL (test code = WBC) 9.8 K/mm3 4.5-12.5 N RED BLOOD CELL (test code = RBC) 4.44 mill/mm3 3.7-5.2 N HEMOGLOBIN (test code = HGB) 13.9 gram/dL 11.5-15.5 N HEMATOCRIT (test code = HCT) 41.3 % 36.0-46.0 N MEAN CELL VOLUME (test code = MCV) 93.0 fL 80-98 N MEAN CELL HGB (test code = MCH) 31.3 picogram 27.0-33.0 N MEAN CELL HGB CONCETRATION (test code = MCHC) 33.7 gram/dL 33.0-36. 0 N RED CELL DISTRIBUTION WIDTH (test code = RDW) 12.2 % 11.6-16. 2 N RED CELL DISTRIBUTION WIDTH SD (test code = RDW-SD) 41.6 fL 37 .0-51.0 N PLATELET COUNT (test code = PLT) 254 K/mm3 150-450 N MEAN PLATELET VOLUME (test code = MPV) 10.2 fL 6.7-11.0 N NEUTROPHIL % (test code = NT%) 53.8 % 39.0-69.0 N IMMATURE GRANULOCYTE % (test code = IG%) 0.1 % 0.0-5.0 N LYMPHOCYTE % (test code = LY%) 33.8 % 25.0-55.0 N MONOCYTE % (test code = MO%) 6.5 % 0.0-10.0 N EOSINOPHIL % (test code = EO%) 5.2 % 0.0-5.0 H BASOPHIL % (test code = BA%) 0.6 % 0.0-1.0 N NUCLEATED RBC % (test code = NRBC%) 0.0 % 0-0 N NEUTROPHIL # (test code = NT#) 5.26 K/mm3 1.8-7.7 N IMMATURE GRANULOCYTE # (test code = IG#) 0.01 x10 3/uL 0-0.03 N LYMPHOCYTE # (test code = LY#) 3.31 K/mm3 1.0-5.0 N MONOCYTE # (test code = MO#) 0.64 K/mm3 0-0.8 N EOSINOPHIL # (test code = EO#) 0.51 K/mm3 0.0-0.5 H BASOPHIL # (test code = BA#) 0.06 K/mm3 0.0-0.2 N NUCLEATED RBC # (test code = NRBC#) 0.00 K/mm3 0.0-0.1 N MANUAL DIFF REQUIRED (test code = MDIFF) NO DUODENUM,[id number] 11:03:00 RUN DATE: 02/25/19 [facility] PAGE 1 RUN TIME: 1103 Specimen Inqui ry RUN USER: INTERFACE PATIENT: JESUS ASCENCIO ACCT #: [id number] LOC: G U #: [id number] AGE/SX: 63/F ROOM: [facility]02[facility]: Jordan Lehman MD : 57 BED: DIS: STATUS: [facility] [place] SPEC #: [id number] RECD: 02/20/19 STATUS: DANIELLA REHarsh #: [id number] [facility]: 02/18/190759 [facility] DR: Jordan Lehman MD ENTERED: 02/20/19 SP TYPE: BX DUODEN OTHR DR: Fernanda Chatterjee MD ORDERED: MAURO COPIES TO: Elisha Chatterjee MD [address] [place] [address] Jordan Lehman MD [address] [place] [address] PROCEDURES: GROSS (02/24/19-1 228) TISSUES: 1. DUODENUM, NOS - BULB NODULE (POSTRIOR WALL) 2 . ANTRUM - BX 3. SIGMOID COLON - POLYP HOT BX x2 CLINICAL HISTO RY COLLECTION DATE: 02/18/2019 DYSPHAGIA, H/O COLON CA, ALTERNATING CO NSTIPATION/DIARRHEA GASTRITIS, SMALL SLIDING HIATAL HERNIA, MILD ESOPHAGUS STRICTURE DUODENAL BULB NODULE, COLON POLYPS, INTERNAL HEMORRHOIDS, POOR PREP COMMENT Intradepartmental consultation: DMW FINAL DIAGNOS IS Duodenal bulb nodule, posterior wall, biopsy: DUODENAL MUCOSA WITH UNREMARKABLE VILLOUS ARCHITECTURE, MILD CHRONIC INFLAMMATION, LYMPHOID AGGREGATES AND GASTRIC METAPLASIA NO INTRAEPITHELIAL INFLAMMATION PRESENT NEGATIVE FOR MALIGNANCY MULTIPLE LEVELS EXAMINED Antrum, bi opsy: GASTRIC MUCOSA WITH NO SIGNIFICANT ACUTE OR CHRONIC INFLAMMATION CONTINUED ON NEXT PAGE RUN DATE: 02/25/19 [place] - Lab PAGE 2 RUN TIME: 1103 Specimen Inquiry RUN USER: INTERFACE -- SPEC #: [id number] PATIENT: JESUS ASCENCIO #[id number] (Continued) FINAL DIAGNOSIS (Continued) NEGATIVE FOR INTESTINAL METAPLASIA NEGATIVE FOR HELICOBACTER OR GANISMS NEGATIVE FOR MALIGNANCY Sigmoid colon polyp, hot biopsy: HYPERPLASTIC POLYP NEGATIVE FOR MALIGNANCY MILD ARTIFACTUAL D ISTORTION PRESENT RRB/scarlet/sm D [id number], 63373 MACROS COPIC The first specimen is received in formalin, labeled with the patient's name, and identified as "BX Duodenal bulb nodule". It consists of recio biopsy material measuring 0.35 cm in aggregate. The second specimen is received in formalin, labeled with the patient's name, and identified as "Antrum". It consists of recio biopsy material measuring 0.4 cm in aggregate. The thi rd specimen is received in formalin, labeled with the patient's name, and iden tified as "Sigmoid colon polyp". The specimen consists of two recio biopsy frag ments measuring 0.2 cm. GROSS PERFORMED AT [facility] [address] [place] [address] (P)[phone] MICROSCOPIC All of the stains, including any contr ols performed, stain appropriately. MICROSCOPIC PERFORMED AT [facility] [address] [place] [address] (P)[phone] CONTINUED ON NEXT PAGE RUN DATE: 02/25/19 [place] [facility] PAGE 3 RUN TIME: 1103 Speci men Inquiry RUN USER: INTERFACE SPEC #: [id number] PATIENT: LINDEN EwingJESUS DANG #[id number] (Continued) PERFO ING SITE Diagnosis performed at: [facility] [address] [place] [address] Signed SIGNATURE ON FILE Luis Sparks MD 02/25/19 1103 END OF REPORT GLUBED 2019-02-18 07:48:00* Test Item Value Reference Range Interpretation Comments GLUBED (test code = GLUBED) 150 mg/dL 74-106 H Performed by certified kohinoor operator at [facility] BASIC METABOLIC [id number] 07:24:00* Test Item Value Reference Range Interpretation Comments SODIUM (test code = NA) 141 mmol/L 136-145 N POTASSIUM (test code = K) 3.5 mmol/L 3.5-5.1 N CHLORIDE (test code = CL) 109.0 mmol/L 98-107 H CARBON DIOXIDE (test code = CO2) 25.0 mmol/L 21-32 N ANION GAP (test code = GAP) 10.5 10-20 N GLUCOSE (test code = GLU) 158 mg/dL 74-106 H BLOOD UREA NITROGEN (test code = BUN) 12 mg/dL 7-18 N GLOMERULAR FILTRATION RATE (test code = GFR) > 60 mL/min >=60 Estimated GFR by using Modified MDRD formula.Chronic kidney disease is defined as either kidney damageor GFR <60 mL/min/1.73 m2 for >3 months. CREATININE (test code = CREAT) 0.70 mg/dL 0.55-1.02 N Note change in reference range due to change in reagent. BUN/CREATININE RATIO (test code = BUN/CREA) 17.1 10-20 N CALCIUM (test code = CA) 9.0 mg/dL 8.5-10.1 N PROTHROMBIN [id number] 07:22:00* Test Item Value Reference Range Interpretation Comments PROTHROMBIN TIME PATIENT (test code = PTP) 12.4 seconds 9.0-14.0 N INTERNATIONAL NORMAL RATIO (test code = INR) 1.1 0.8-1.2 N The therapeutic range for oral anticoagulant therapy formost indications is an international normalized ratio (INR)of between 2.0 and 3.0. The recommended therapeutic INRrange for various clinical situations is listed below: Clinical Situation INR range Pulmonary e mbolism treatment (2.0-3.0)Venous thrombosis treatmentVenous thrombosis prophylaxis (high risk surgery)Prevention of systemic embolism from: Acute myocardial infarction Valvular heart disease Atrial fibrillation Mechanical prosthetic heart valves (2.5-3.5) IS PATIENT ON ANTICOAGULANTS? YLIST ANTICOAGULANTS COUMADINTHROMBOPLASTIN TIME [id number] 07:22:00* Test Item Value Reference Range Interpretation Comments THROMBOPLASTIN TIME PARTIAL (test code = PTT) 28.9 seconds 25.0-36. 5 N IS PATIENT ON ANTICOAGULANTS? YLIST ANTICOAGULANTS COUMADINBASIC METABOLIC [id number] 07:20:00* Test Item Value Reference Range Interpretation Comments SODIUM (test code = NA) 141 mmol/L 136-145 N POTASSIUM (test code = K) 3.5 mmol/L 3.5-5.1 N CHLORIDE (test code = CL) 109.0 mmol/L 98-107 H CARBON DIOXIDE (test code = CO2) mmol/L 21-32 ANION GAP (test code = GAP) 10-20 GLUCOSE (test code = GLU) mg/dL 74-106 BLOOD UREA NITROGEN (test code = BUN) mg/dL 7-18 GLOMERULAR FILTRATION RATE (test code = GFR) mL/min >=60 CREATININE (test code = CREAT) mg/dL 0.55-1.02 BUN/CREATININE RATIO (test code = BUN/CREA) 10-20 CALCIUM (test code = CA) mg/dL 8.5-10.1 CBC W/AUTO [id number] 07:08:00* Test Item Value Reference Range Interpretation Comments WHITE BLOOD CELL (test code = WBC) 9.2 K/mm3 4.5-12.5 N RED BLOOD CELL (test code = RBC) 4.28 mill/mm3 3.7-5.2 N HEMOGLOBIN (test code = HGB) 13.4 gram/dL 11.5-15.5 N HEMATOCRIT (test code = HCT) 40.8 % 36.0-46.0 N MEAN CELL VOLUME (test code = MCV) 95.3 fL 80-98 N MEAN CELL HGB (test code = MCH) 31.3 picogram 27.0-33.0 N MEAN CELL HGB CONCETRATION (test code = MCHC) 32.8 gram/dL 33.0-36. 0 L RED CELL DISTRIBUTION WIDTH (test code = RDW) 12.3 % 11.6-16. 2 N RED CELL DISTRIBUTION WIDTH SD (test code = RDW-SD) 43.0 fL 37 .0-51.0 N PLATELET COUNT (test code = PLT) 249 K/mm3 150-450 N MEAN PLATELET VOLUME (test code = MPV) 9.8 fL 6.7-11.0 N NEUTROPHIL % (test code = NT%) 56.0 % 39.0-69.0 N IMMATURE GRANULOCYTE % (test code = IG%) 0.3 % 0.0-5.0 N LYMPHOCYTE % (test code = LY%) 33.0 % 25.0-55.0 N MONOCYTE % (test code = MO%) 5.2 % 0.0-10.0 N EOSINOPHIL % (test code = EO%) 5.0 % 0.0-5.0 N BASOPHIL % (test code = BA%) 0.5 % 0.0-1.0 N NUCLEATED RBC % (test code = NRBC%) 0.0 % 0-0 N NEUTROPHIL # (test code = NT#) 5.14 K/mm3 1.8-7.7 N IMMATURE GRANULOCYTE # (test code = IG#) 0.03 x10 3/uL 0-0.03 N LYMPHOCYTE # (test code = LY#) 3.04 K/mm3 1.0-5.0 N MONOCYTE # (test code = MO#) 0.48 K/mm3 0-0.8 N EOSINOPHIL # (test code = EO#) 0.46 K/mm3 0.0-0.5 N BASOPHIL # (test code = BA#) 0.05 K/mm3 0.0-0.2 N NUCLEATED RBC # (test code = NRBC#) 0.00 K/mm3 0.0-0.[address] ABDOMEN/PELVIS [id number] 22:10:00 [place] [address] Patient Name: JESUS ASCENCIO MR #: [id number] : 1955 Age/Sex: 63/F Req #: [id number] Adm Physician: Ordered by: ERICKA UNGER MD Report #: [id number] Location: ER Room/Bed: Procedure: [id number] CT/CT ABDOMEN/PELVIS W Exam Date: Exam Time: REPORT STATUS: Signed EXAM: CT Abdome n and Pelvis WITH contrast INDICATION: ABD PAIN WITH VOMITING, H/O COLON CANCER Y COMPARISON: CT dated 11/14/2018 TECHNIQUE: Abdomen and pel vis were scanned utilizing a multidetector helical scanner from the lung base to the pubic symphysis after administration of IV contrast. Coronal and sagitt al reformations were obtained. Dose modulation, iterative reconstruction, and/ or weight based adjustment of the mA/kV was utilized to reduce the radiation d ose to as low as reasonably achievable. Routine protocol was performed. Scan w as performed when during portal venous phase. IV CONTRAST: 100 mL o f Isovue-370 ORAL CONTRAST: Gastroview COMPLICATIONS: No ne RADIATION DOSE: Total DLP: 606.48 mGy*cm Estimated effecti ve dose: (DLP x 0.015 x size factor) mSv CTDIvol has been reviewed. It is below the limits set by the Radiation Protocol Committee (RPC). FINDINGS : LINES and TUBES: None. LOWER THORAX: Unchanged 3 mm groundglass rig ht lower lobe nodule (series 2, image 4). HEPATOBILIARY: Hepatic steatosi s. No focal hepatic lesions. No biliary ductal dilation. GALLBLADDER: C holecystectomy. SPLEEN: No splenomegaly. PANCREAS: No focal masses or ductal dilatation. ADRENALS: No adrenal nodules KIDNEYS/URETERS : Kidneys enhance symmetrically. No hydronephrosis. No cystic or solid mass l esions. No stones. GI TRACT: No abnormal distention, wall thickening, or e vidence of bowel obstruction. Appendix is not visualized. Sigmoid anasto mosis in left lower quadrant is intact. Scattered colonic diverticula without evidence of diverticulitis. PELVIC ORGANS/BLADDER: Hysterectomy. Bladder is unremarkable. Unchanged metallic density along the right pelvis. LYMPH NODES: No lymphadenopathy. VESSELS: Unremarkable. PERITONEUM / RETROP ERITONEUM: No free air or fluid. BONES: Unremarkable. SOFT TISSUES: Sm all fat-containing umbilical hernia. IMPRESSION: 1. No acut e inflammatory process in the abdomen/pelvis. 2. Hepatic steatosis. Sign ed by: Dr. El Sesay MD on 01/21/2019 10:19 PM Dictated By: EL RIVERA MD 18 Transcribe d By: DARION on 01/21/192218 COPY TO: ERICKA UNGER MD Amylase [id number] 21:51:00* Test Item Value Reference Range Interpretation Comments Amylase Level (test code = 1798-8) 33 25-125 [facility]2019-[facility] 21:51:00* Test Item Value Reference Range Interpretation Comments Lipase (test code = 3040-3) 13 8-78 [facility] [id number] 21:42:00* Test Item Value Reference Range Interpretation Comments Sodium Level (test code = 2951-2) 138 136-145 [facility]Potassium [id number] 21:42:00* Test Item Value Reference Range Interpretation Comments Potassium Level (test code = 2823-3) 3.7 3.5-5.1 [facility] CenterChloride [id number] 21:42:00* Test Item Value Reference Range Interpretation Comments Chloride Level (test code = 2075-0) 105 98-107 [facility] CenterCarbon Dioxide [id number] 21:42:00* Test Item Value Reference Range Interpretation Comments Carbon Dioxide Level (test code = 2028-9) 23 22-29 [facility] CenterAnion [id number] 21:42:00* Test Item Value Reference Range Interpretation Comments Anion Gap (test code = 27141-8) 13.7 8-16 [facility] CenterBlood Urea [id number] 21:42:00* Test Item Value Reference Range Interpretation Comments Blood Urea Nitrogen (test code = 3094-0) 15 7-26 [facility] CenterCreatinine2019-12-03 21:42:00* Test Item Value Reference Range Interpretation Comments Creatinine (test code = 2160-0) 0.78 0.57-1.11 [facility] CenterBUN/Creatinine [id number] 21:42:00* Test Item Value Reference Range Interpretation Comments BUN/Creatinine Ratio (test code = 3097-3) 19 6-25 [facility] CenterEstimat Glomerular Filtration Rate 2019-01-21 21:42:00* Test Item Value Reference Range Interpretation Comments Estimat Glomerular Filtration Rate (test code = 119776563) > 60 >60 Ranges were taken from the National Kidney Disease Education Program and the [facility] Kidney Foundation literature.Reference ranges:60 or greater: Mhxehz94-28 ( for 3 consecutive months): Chronic kidney disease 15 or less: Kidney failureOakBend Medical CenterGlucose Dvbbo7289-80-57 21:42:00* Test Item Value Reference Range Interpretation Comments Glucose Level (test code = IJD3934) 137 74-118 H [facility] CenterCalcium [id number] 21:42:00* Test Item Value Reference Range Interpretation Comments Calcium Level (test code = 67116-2) 9.3 8.4-10.2 [facility] CenterTotal Wyekhayxt9142-04-63 21:42:00* Test Item Value Reference Range Interpretation Comments Total Bilirubin (test code = 1975-2) 0.2 0.2-1.2 [facility] CenterAspartate Amino Transf (AST/SGOT) 2019-01-21 21:42:00* Test Item Value Reference Range Interpretation Comments Aspartate Amino Transf (AST/SGOT) (test code = Aspartate Amino Transf (AST/SGOT)) 14 5-34 [facility] CenterAlanine Aminotransferase (ALT/SGPT) 2019-01-21 21:42:00* Test Item Value Reference Range Interpretation Comments Alanine Aminotransferase (ALT/SGPT) (test code = 1742-6) 12 0-55 [facility] CenterTotal Jjeknky2960-37-86 21:42:00* Test Item Value Reference Range Interpretation Comments Total Protein (test code = 2885-2) 7.7 6.5-8.1 [facility] CenterAlbumin2019-12-03 21:42:00* Test Item Value Reference Range Interpretation Comments Albumin (test code = 1751-7) 3.7 3.5-5.0 [facility] CenterGlobulin2019-12-03 21:42:00* Test Item Value Reference Range Interpretation Comments Globulin (test code = 02287-6) 4.0 2.3-3.5 H [facility] CenterAlbumin/Globulin Bixgg5448-03-33 21:42:00 * Test Item Value Reference Range Interpretation Comments Albumin/Globulin Ratio (test code = 1759-0) 0.9 0.8-2.0 [facility] CenterAlkaline Fkmsjinzrrc0567-56-52 21:42:00* Test Item Value Reference Range Interpretation Comments Alkaline Phosphatase (test code = 6768-6) 75 40-150 [facility] CenterWhite Blood Aebaq9979-36-85 21:39:00* Test Item Value Reference Range Interpretation Comments White Blood Count (test code = 6690-2) 10.79 4.8-10.8 [facility] CenterRed Blood Nqreu1992-63-64 21:39:00* Test Item Value Reference Range Interpretation Comments Red Blood Count (test code = 789-8) 4.13 3.6-5.1 [facility] CenterHemoglobin2019-12-03 21:39:00* Test Item Value Reference Range Interpretation Comments Hemoglobin (test code = 97148-0) 12.9 12.0-16.0 [facility] CenterHematocrit2019-12-03 21:39:00* Test Item Value Reference Range Interpretation Comments Hematocrit (test code = 4544-3) 39.0 34.2-44.1 [facility] CenterMean Corpuscular Uqacjb0540-93-06 21:39:00* Test Item Value Reference Range Interpretation Comments Mean Corpuscular Volume (test code = 787-2) 94.4 81-99 [facility]Mean Corpuscular Xqyplggutv4898-22-89 21:39:00* Test Item Value Reference Range Interpretation Comments Mean Corpuscular Hemoglobin (test code = 785-6) 31.2 28-32 [facility] CenterMean Corpuscular Hemoglobin Concent 2019-01-21 21:39:00* Test Item Value Reference Range Interpretation Comments Mean Corpuscular Hemoglobin Concent (test code = 786-4) 33.1 31-35 [facility] CenterRed Cell Distribution Jblud2808-49-11 21:39:00* Test Item Value Reference Range Interpretation Comments Red Cell Distribution Width (test code = 16422-0) 12.4 11.7 -14.4 [facility] CenterPlatelet Jsjiu7352-60-78 21:39:00* Test Item Value Reference Range Interpretation Comments Platelet Count (test code = 777-3) 259 140-360 [facility] CenterNeutrophils (%) (Auto)2019-01-21 21:39:00 * Test Item Value Reference Range Interpretation Comments Neutrophils (%) (Auto) (test code = 89537-0) 53.2 38.7-80.0 [facility] CenterLymphocytes (%) (Auto)2019-01-21 21:39:00 * Test Item Value Reference Range Interpretation Comments Lymphocytes (%) (Auto) (test code = 736-9) 36.0 18.0-39.1 [facility] CenterMonocytes (%) (Auto)2019-01-21 21:39:00* Test Item Value Reference Range Interpretation Comments Monocytes (%) (Auto) (test code = 5905-5) 5.7 4.4-11.3 [facility] CenterEosinophils (%) (Auto)2019-01-21 21:39:00 * Test Item Value Reference Range Interpretation Comments Eosinophils (%) (Auto) (test code = 713-8) 4.3 0.0-6.0 [facility] CenterBasophils (%) (Auto)2019-01-21 21:39:00* Test Item Value Reference Range Interpretation Comments Basophils (%) (Auto) (test code = 706-2) 0.6 0.0-1.0 [facility] CenterIM GRANULOCYTES %2019-01-21 21:39:00* Test Item Value Reference Range Interpretation Comments IM GRANULOCYTES % (test code = IM GRANULOCYTES %) 0.2 0.0- 1.0 [facility] CenterNeutrophils # (Auto)2019-01-21 21:39:00* Test Item Value Reference Range Interpretation Comments Neutrophils # (Auto) (test code = 751-8) 5.8 2.1-6.9 [facility] CenterLymphocytes # (Auto)2019-01-21 21:39:00* Test Item Value Reference Range Interpretation Comments Lymphocytes # (Auto) (test code = 51843-4) 3.9 1.0-3.2 H [facility] CenterMonocytes # (Auto)2019-01-21 21:39:00* Test Item Value Reference Range Interpretation Comments Monocytes # (Auto) (test code = 742-7) 0.6 0.2-0.8 [facility] CenterEosinophils # (Auto)2019-01-21 21:39:00* Test Item Value Reference Range Interpretation Comments Eosinophils # (Auto) (test code = 711-2) 0.5 0.0-0.4 H [facility] CenterBasophils # (Auto)2019-01-21 21:39:00* Test Item Value Reference Range Interpretation Comments Basophils # (Auto) (test code = 704-7) 0.1 0.0-0.1 [facility] CenterAbsolute Immature Granulocyte (auto 2019-01-21 21:39:00* Test Item Value Reference Range Interpretation Comments Absolute Immature Granulocyte (auto (sidney t code = Absolute Immature Granulocyte (auto) 0.02 0-0.1 [facility] CenterUrine [id number] 21:32:00* Test Item Value Reference Range Interpretation Comments Urine WBC (test code = 5821-4) NONE 0-5 [facility] CenterU[facility] SOQ6860-57-97 21:32:00* Test Item Value Reference Range Interpretation Comments Urine RBC (test code = 30357-9) 6-10 0-5 H [facility] CenterUrine Thcdvtby2441-05-92 21:32:00* Test Item Value Reference Range Interpretation Comments Urine Bacteria (test code = 83907-0) FEW NONE [facility] CenterUrine Epithelial Kagtg3056-22-67 21:32:00 * Test Item Value Reference Range Interpretation Comments Urine Epithelial Cells (test code = 51127-4) NONE NONE [facility] CenterUrine Imqme6978-17-56 21:10:00* Test Item Value Reference Range Interpretation Comments Urine Color (test code = 5778-6) YELLOW YELLOW [facility] CenterUrine Edhhxxr0331-46-63 21:10:00* Test Item Value Reference Range Interpretation Comments Urine Clarity (test code = 18474-1) SL CLOUDY CLEAR [facility] Specific Dblzwuz4986-38-44 21:10:00 * Test Item Value Reference Range Interpretation Comments Urine Specific [place] (test code = 5811-5) 1.020 1.010-1.02 5 [facility] CenterUrine lQ4718-68-16 21:10:00* Test Item Value Reference Range Interpretation Comments Urine pH (test code = 07941-8) 6 5-7 [facility] Leukocyte Giqbvhat2657-40-96 21:10:00* Test Item Value Reference Range Interpretation Comments Urine Leukocyte Esterase (test code = 13072-1) NEGATIVE NEGATIV E [facility] Rwzngyz8375-70-86 21:10:00* Test Item Value Reference Range Interpretation Comments Urine Nitrite (test code = 81160-3) NEGATIVE NEGATIVE [facility] Iztyhsf1158-90-60 21:10:00* Test Item Value Reference Range Interpretation Comments Urine Protein (test code = 05535-4) NEGATIVE NEGATIVE [facility] Glucose (UA)2019-01-21 21:10:00* Test Item Value Reference Range Interpretation Comments Urine Glucose (UA) (test code = 12359-8) 1+ NEGATIVE H [facility] CenterUrine Psizfxn5427-32-80 21:10:00* Test Item Value Reference Range Interpretation Comments Urine Ketones (test code = 18346-0) NEGATIVE NEGATIVE [facility] Kgkdsdifgbzm4507-82-71 21:10:00* Test Item Value Reference Range Interpretation Comments Urine Urobilinogen (test code = 74744-4) 0.2 0.2-1 [facility] Ufpakdhoz5889-36-76 21:10:00* Test Item Value Reference Range Interpretation Comments Urine Bilirubin (test code = 1977-8) NEGATIVE NEGATIVE [facility] CenterUrine Wuttr4544-77-02 21:10:00* Test Item Value Reference Range Interpretation Comments Urine Blood (test code = 59205-7) MODERATE NEGATIVE [facility] CenterGLUBED2019-11-15 11:58:00* Test Item Value Reference Range Interpretation Comments GLUBED (test code = GLUBED) 137 mg/dL 74-106 H Performed by certified kohinoor operator at [facility] RCEAFCWY-M1189-37-15 09:40:00* Test Item Value Reference Range Interpretation Comments TROPONIN-I (test code = TROPI) <0.015 ng/mL 0-0.045 N COMMENTS TO SCALLOP CUTTER MACHINE: COLLECT 3 HOURS AFTER PREVIOUS IIMMJENZMCLUIL-Z8412-16-15 03:57:00* Test Item Value Reference Range Interpretation Comments TROPONIN-I (test code = TROPI) <0.015 ng/mL 0-0.045 N COMMENTS TO SCALLOP CUTTER MACHINE: COLLECT 3 HOURS AFTER PREVIOUS QFFMJDHXKSOAJY-C7831-83-15 00:41:00* Test Item Value Reference Range Interpretation Comments TROPONIN-I (test code = TROPI) <0.015 ng/mL 0-0.045 N EWOZWZ9936-89-38 21:35:00* Test Item Value Reference Range Interpretation Comments GLUBED (test code = GLUBED) 87 mg/dL 74-106 N Performed by certified kohinoor operator at [facility] - CT CHEST W/XVENMZIP6605-47-83 20:50:00 Name: ASCENCIOJESUS [facility] : 1955 Age/S: 63 / F [address] [facility] Unit #: [id number] Loc: [place] [address] Phys: Rodney Pagan MD Acct: [id number] Dis Date: Status: ADM IN PHONE #: [phone] Exam Date: 01/02/2019 1845 FAX #: [phone] Reason: chest pain R/O DISECTION Report Has Been Amended EXAMS: CPT CODE: [id number] CT CHEST W/CONTRAST 55097 Addendum - 01/02/2019 SIGNED 01/02/2019 ADDENDUM: [id number] CT/CTCHESTW ADDENDUM: This study was a CT angiogram of the chest. 3-D angiographic studies and additional multiple curvilinear reconstructions were generated on an independent workstation and have been submitted for interpretation. The studies show an unremarkable thoracic aorta without evidence of dissection or aneurysm. Celiac artery, SMA and renal arteries were included in this study and are unremarkable. at 2049 Reported and signed by: Earl Rivera M.D. Transcribed: 01/02/2019 (2049) JoannaGRW Report EXAM: CT of the chest with contrast; INFORMATION: Chest pain; TECHNIQUE: CT dose reduction protocol; 1.25 mm cuts were obtained through the chest during intravenous infusion of contrast material; multiplanar reconstructions were obtained; PE protocol; FINDINGS: The pulmonary arteries are densely enhancing and are without filling defects. The thoracic aorta is normal; no evidence of dissection or aneurysm. No evidence of hilar or mediastinal adenopathy; No effusions. Lung windows show no parenchymal abnormalities. IMPRESSION: No evidence of pulmonary embolism, aortic disse ction or other acute PAGE 1 Signed Report (CONTINUED) Name: JESUS ASCENCIO [facility] : 1955 Age/S: 63 / F [address] [facility] Unit #: [id number] Loc: [place] [address] Phys: Rodney Pagan MD ct: [id number] Dis Date: Status: ADM IN PHONE #: [phone] Exam Date: 01/02/2019 1845 FAX #: [phone] Reason: chest pain R/O DISECTION Report Has Been Amended EXAMS: CPT CODE: [id number] CT CHEST W/CONTRAS T [address] <Continued> abnormalities. Location code: [facility] at 1923 Reported and signed by: Earl Rivera M.D. CC: Rodney Pagan MD Technologist:Volodymyr Stock RT(R),CT CTDI: DLP: Trnscb Date/Time: 01/02/2019 (1922) JoannaGRW Orig Print D/T: S: 01/02/2019 (1925) PAGE 2 Signed Report - CT CHEST W/CONTRAST 2019-01-02 19:23:00 Name: JESUS ASCENCIO [facility] : 1955 Age/S: 63 / F [address] [facility] Unit #: [id number] Loc: [place] [address] Phys: Rodney Pagan MD Acct: [id number] Dis Date: Status: REG ER PHONE #: [phone] Exam Date: 01/02/2019 1845 FAX #: [phone] Reason: chest pain R/O DISECTION EXAMS: CPT CODE: [id number] CT CHEST W/CONTRAST 92788 EXAM: CT of the chest with contrast; INFORMATION: Chest pain; TECHNIQUE: CT dose reduction protocol; 1.25 mm cuts were obtained through the chest during intravenous infusion of contrast material; multiplanar reconstructions were obtained; PE protocol; FINDINGS: The pulmonary arteries are densely enhancing and are without filling defects. The thoracic aorta is normal; no evidence of dissection or aneurysm. No evidence of hilar or mediastinal adenopathy; No effusions. Lung windows show no parenchymal abnormalities. IMPRESSION: No evidence of pulmonary embolism, aortic dissection or other acute abnormalities. Location code: [facility] at 1923 Reported and signed by: Earl Rivera M.D. CC: Rodney Pagan MD Technologist:Volodymyr Stock RT(R),CT CTDI: DLP: Trnscb Date/Time: 01/02/2019 (1922) Ashley Orig Print D/T: S: 01/02/2019 (1925) PAGE 1 Signed Report - XR CHEST 2 [id number] 17:56:00 Name: JESUS ASCENCIO [facility] : 1955 Age/S:63 /F [address] [facility] Unit#:[id number] Loc: [place] [address] Phys: Rodney Pagan MD Dis Date: PHONE #: [phone] Status: REG ER FAX #: [phone] Exam Date: 01/02/2019 Reason: CHEST PAIN EXAMS: CPT CODE: [id number] XR CHEST 2 V 98986 EXAM: Chest x-ray, 2 views; INFORMATION: Chest pain; IMPRESSION: 1. No evidence of active cardiopulmonary disease. 2. No change compared with a study from July 31, 2018; well-positioned left subclavian Port-A-Cath. Location code: [facility] at 1752 Reported and signed by: Earl Rivera M.D. CC: Rodney Pagan MD Ben hnologist: Volodymyr Stock RT(R),CT Trnscrpt Data: 01/02/2019 (1755) t.LAMINE.GRW Orig Print D/T: S: 019 (5069) PAGE 1 Signed Report BASIC METABOLIC [id number] 17:04:00* Test Item Value Reference Range Interpretation Comments SODIUM (test code = NA) 136 mmol/L 136-145 N POTASSIUM (test code = K) 3.7 mmol/L 3.5-5.1 N CHLORIDE (test code = CL) 102 mmol/L 101-109 N CARBON DIOXIDE (test code = CO2) 23.9 mmol/L 21-32 N ANION GAP (test code = GAP) 14 mmol/L 10-20 N GLUCOSE (test code = GLU) 171 mg/dL 74-106 H BLOOD UREA NITROGEN (test code = BUN) 17 mg/dL 3-21 N GLOMERULAR FILTRATION RATE (test code = GFR) > 60 mL/min >=60 Estimated GFR by using Modified MDRD formula.Chronic kidney disease is defined as either kidney damageor GFR <60 mL/min/1.73 m2 for >3 months. CREATININE (test code = CREAT) 0.76 mg/dL 0.55-1.3 N BUN/CREATININE RATIO (test code = BUN/CREA) 22.4 10-20 H CALCIUM (test code = CA) 8.9 mg/dL 8.4-10.2 N [id number] 17:04:00* Test Item Value Reference Range Interpretation Comments LIPASE (test code = LIP) 90 U/L 128-270 L UTKUFRKM-Q4911-91-14 17:04:00* Test Item Value Reference Range Interpretation Comments TROPONIN-I (test code = TROPI) <0.015 ng/mL 0.00-0.056 N CBC W/O [id number] 16:46:00* Test Item Value Reference Range Interpretation Comments WHITE BLOOD CELL (test code = WBC) 8.7 K/mm3 4.5-12.5 N RED BLOOD CELL (test code = RBC) 4.49 mill/mm3 3.7-5.2 N HEMOGLOBIN (test code = HGB) 13.9 gram/dL 11.5-15.5 N HEMATOCRIT (test code = HCT) 42.3 % 36.0-46.0 N MEAN CELL VOLUME (test code = MCV) 94.2 fL 80-98 N MEAN CELL HGB (test code = MCH) 31.0 picogram 27.0-33.0 N MEAN CELL HGB CONCETRATION (test code = MCHC) 32.9 gram/dL 33.0-36. 0 L RED CELL DISTRIBUTION WIDTH (test code = RDW) 12.2 % 11.6-16. 2 N RED CELL DISTRIBUTION WIDTH SD (test code = RDW-SD) 43.1 fL 37 .0-51.0 N PLATELET COUNT (test code = PLT) 222 K/mm3 150-450 N MEAN PLATELET VOLUME (test code = MPV) 10.5 fL 6.7-11.0 N Urine [id number] 20:06:00* Test Item Value Reference Range Interpretation Comments Urine WBC (test code = 5821-4) NONE 0-5 [facility] [id number] 20:06:00* Test Item Value Reference Range Interpretation Comments Urine RBC (test code = 71192-1) 0-5 0-5 [facility] Gppswwyl5671-48-46 20:06:00* Test Item Value Reference Range Interpretation Comments Urine Bacteria (test code = 19387-3) FEW NONE [facility] Epithelial Vderk7434-77-12 20:06:00 * Test Item Value Reference Range Interpretation Comments Urine Epithelial Cells (test code = 84214-1) MODERATE NONE [facility] Cdadp3813-86-43 19:54:00* Test Item Value Reference Range Interpretation Comments Urine Color (test code = 5778-6) YELLOW YELLOW [facility] Ggvmiaq8979-09-33 19:54:00* Test Item Value Reference Range Interpretation Comments Urine Clarity (test code = 94565-2) CLEAR CLEAR [facility] Specific Qdownlb3186-63-53 19:54:00 * Test Item Value Reference Range Interpretation Comments Urine Specific [place] (test code = 5811-5) <=1.005 1.010-1.02 5 [facility] CenterU[facility] [id number] 19:54:00* Test Item Value Reference Range Interpretation Comments Urine pH (test code = 32382-5) 6.5 5-7 [facility] Leukocyte Xivwlppl2447-30-77 19:54:00* Test Item Value Reference Range Interpretation Comments Urine Leukocyte Esterase (test code = 10244-5) NEGATIVE NEGATIV E [facility] Srrxquz1270-39-34 19:54:00* Test Item Value Reference Range Interpretation Comments Urine Nitrite (test code = 24280-2) NEGATIVE NEGATIVE [facility] Rwupnai0722-28-05 19:54:00* Test Item Value Reference Range Interpretation Comments Urine Protein (test code = 55053-4) NEGATIVE NEGATIVE [facility] Glucose (UA)2018-11-14 19:54:00* Test Item Value Reference Range Interpretation Comments Urine Glucose (UA) (test code = 39470-3) NEGATIVE NEGATIVE [facility] Rllfuyu6857-57-00 19:54:00* Test Item Value Reference Range Interpretation Comments Urine Ketones (test code = 80191-4) NEGATIVE NEGATIVE [facility] Pcqyubbhwdto7736-31-54 19:54:00* Test Item Value Reference Range Interpretation Comments Urine Urobilinogen (test code = 19244-5) 0.2 0.2-1 [facility] Acmxulbjp7502-25-52 19:54:00* Test Item Value Reference Range Interpretation Comments Urine Bilirubin (test code = 1977-8) NEGATIVE NEGATIVE [facility] Izayf7889-67-89 19:54:00* Test Item Value Reference Range Interpretation Comments Urine Blood (test code = 61642-1) 1+ NEGATIVE [facility]PELVIS [id number] 19:27:00 [facility] [address] [address] Patient Name: JESUS ASCENCIO MR #: [id number] : 1955 Age/Sex: 63/F Req #: [id number] Adm Physician: Ordered by: ALEXSANDRA ARANDA NP Report #: [id number] Location: ER Room/Bed: Procedure: [id number] CT/CT ABDOMEN/PELVIS W Exam Date: 11/14/18 Exam Time: 184 6 REPORT STATUS: Signed EXAM: C T of the abdomen and pelvis WITH contrast HISTORY: Abdominal pain, left lo wer quadrant radiating to epigastric, history of colon cancer and colostomy COMPARISON: CT of the abdomen pelvis March 28, 2018.. TECHNIQUE: The abdomen and pelvis were scanned utilizing a multidetector helical scanner. Co jose maria and sagittal reformats are provided. PROTOCOL: Routine IV CONTRAST: 100 cc of Isovue-370. ORAL CONTRAST: Wate r RADIATION DOSE: Total DLP: 619.58 mGy*cm Estimated effective dose: (DLP x 0.015 x size factor) Dose modulation, itera tive reconstruction, and/or weight based adjustment of the mA/kV was utilized to reduce the radiation dose to as low as reasonably achievable. COMPLICATIONS: None FINDINGS: THORAX: Bibasilar atelectasis. HEPA TOBILIARY: No focal hepatic lesions. Stable appearing focal fat adjacent to the falciform ligament. No intrahepatic biliary ductal dilation. Cholecyst ectomy. Mild prominence of the common bile duct, compatible with reservoir ef fect. SPLEEN: No splenomegaly. PANCREAS: No focal masses or ductal dil atation. Diffuse parenchymal atrophy. ADRENALS: No adrenal nodules. K IDNEYS/URETERS: No hydronephrosis, stones, or solid mass lesions. PELVIC OR BRIA/BLADDER: The urinary bladder is partially decompressed. PERITONEUM/RET ROPERITONEUM: No free air or fluid. LYMPH NODES: No lymphadenopathy. V ESSELS: Diffuse scattered atherosclerotic vascular calcifications. GI TRACT : No distention or wall thickening. Scattered diverticula along the sigmoid c olon without wall thickening or inflammatory change. Radiopaque suture near t he junction of the descending and sigmoid colon. BONES AND SOFT TISSUE: No bony destructive lesions. No soft tissue abnormalities. Surgical clips goldy ng the right pelvic sidewall unchanged. IMPRESSION: 1. No acute CT abno rmality. 2. No significant interval change. Signed by: Dr. Wiliam St D.O., M.M.M. on 11/14/2018 7:34 PM Dictated By: WILIAM ST DO Electronic ally Signed By: WILIAM ST DO on 11/14/181933 Transcribed By: DARION on 10/21 COPY TO: ALEXSANDRA ARANDA NP CHEST SINGLE (PORTABLE) 2018-11-14 19:05:00 [place] [address] Patient Name: JESUS ASCENCIO MR #: [id number] : 1955 Age/Sex: 63/F Req #: [id number] Adm Physician: Ordered by: ALEXSANDRA ARANDA FLOOR REPRESENTATIVE Report #: [id number] Location: ER Room/Bed: Procedure: [id number] DX/CH EST SINGLE (PORTABLE) Exam Date: 11/14/18 Exam Time: 1835 REPORT STATUS: Signed A si ngle frontal view of the chest. HISTORY: Stomach pain, nausea, vomiting, d iarrhea, epigastric and left lower quadrant pain COMPARISON: Chest radiogra ph August 10, 2018. DISCUSSION: Portable technique, limits sensitivit y of the exam. Soft tissue attenuation partially limits sensitivity of the exa m. Tubes/Lines: Unchanged appearance of the left-sided chest port. Lungs and pleura: Improved aeration of the lungs. No evidence of a consolidat capo pneumonia or pulmonary alveolar edema. No definite pleural effusion or pne umothorax is identified. Heart and mediastinum: The cardiomediastinal s ilhouette appear(s) unremarkable. Bones and soft tissues: Appear unrema rkable, given this limited exam. IMPRESSION: No acute radiographic ab normality. Signed by: Dr. Wiliam St DIlanaOIlana, M.M.M. on 9 7:07 PM Dictated By: WILIAM ST DO 06 Transcribed By: DARION on 11/14/181906 COPY TO: ALEXSANDRA ARANDA FLOOR REPRESENTATIVE Creatine Kinase [id number] 18:22:00* Test Item Value Reference Range Interpretation Comments Creatine Kinase MB (test code = 88800-6) 0.90 0-5.0 [facility] [id number] 18:22:00* Test Item Value Reference Range Interpretation Comments Troponin I (test code = OLH1693) 0.002 0-0.300 [facility] CenterCreatine Kinase [id number] 18:22:00* Test Item Value Reference Range Interpretation Comments Creatine Kinase MB (test code = 92631-1) 0.90 0-5.0 [facility] [id number] 18:22:00* Test Item Value Reference Range Interpretation Comments Troponin I (test code = NKI1491) 0.002 0-0.300 [facility] CenterProthrombin Ievz2328-26-24 18:20:00* Test Item Value Reference Range Interpretation Comments Prothrombin Time (test code = 5902-2) 23.5 11.9-14.5 H [facility] CenterProthromb Time International Ratio 2018-11-14 18:20:00* Test Item Value Reference Range Interpretation Comments Prothromb Time International Ratio (test code = 6301-6) 2.02 Oral Anticoagulant Therapy INR Values:1. Low Intensity Therapy 1.5 - 2.02 . Moderate Intensity Therapy 2.0 - 3.03. High Intensity Therapy(1) 2.5 - 3. 54. High Intensity Therapy(2) 3.0 - 4.05. Panic Value INR > 5.0 [facility] CenterActivated Partial Thromboplast Time 2018-11-14 18:20:00* Test Item Value Reference Range Interpretation Comments Activated Partial Thromboplast Time (test code = 02366-8) 32.3 23.8-35.5 [facility] CenterProthrombin Fcyf8323-96-27 18:20:00* Test Item Value Reference Range Interpretation Comments Prothrombin Time (test code = 5902-2) 23.5 11.9-14.5 H [facility] CenterProthromb Time International Ratio 2018-11-14 18:20:00* Test Item Value Reference Range Interpretation Comments Prothromb Time International Ratio (test code = 6301-6) 2.02 Oral Anticoagulant Therapy INR Values:1. Low Intensity Therapy 1.5 - 2.02 . Moderate Intensity Therapy 2.0 - 3.03. High Intensity Therapy(1) 2.5 - 3. 54. High Intensity Therapy(2) 3.0 - 4.05. Panic Value INR > 5.0 [facility] CenterActivated Partial Thromboplast Time 2018-11-14 18:20:00* Test Item Value Reference Range Interpretation Comments Activated Partial Thromboplast Time (test code = 45884-4) 32.3 23.8-35.5 [facility] Nspsx9646-46-73 18:19:00* Test Item Value Reference Range Interpretation Comments Sodium Level (test code = 2951-2) 138 136-145 [facility] CenterPotassium Sfzpi4317-72-27 18:19:00* Test Item Value Reference Range Interpretation Comments Potassium Level (test code = 2823-3) 3.3 3.5-5.1 L [facility] CenterChloride Zbkdx5152-25-29 18:19:00* Test Item Value Reference Range Interpretation Comments Chloride Level (test code = 2075-0) 105 98-107 [facility] CenterCarbon Dioxide Xegwx9613-12-08 18:19:00* Test Item Value Reference Range Interpretation Comments Carbon Dioxide Level (test code = 2028-9) 23 22-29 [facility] CenterAnion Srt7851-93-45 18:19:00* Test Item Value Reference Range Interpretation Comments Anion Gap (test code = 75868-7) 13.3 8-16 [facility] CenterBlood Urea Nukwgkum9252-87-73 18:19:00* Test Item Value Reference Range Interpretation Comments Blood Urea Nitrogen (test code = 3094-0) 15 7-26 [facility] CenterCreatinine2019-09-26 18:19:00* Test Item Value Reference Range Interpretation Comments Creatinine (test code = 2160-0) 0.81 0.57-1.11 [facility] CenterBUN/Creatinine Cdweo5884-02-03 18:19:00* Test Item Value Reference Range Interpretation Comments BUN/Creatinine Ratio (test code = 3097-3) 19 6- [facility] CenterEstimat Glomerular Filtration Rate 2018-11-14 18:19:00* Test Item Value Reference Range Interpretation Comments Estimat Glomerular Filtration Rate (test code = 573396962) > 60 >60 Ranges were taken from the National Kidney Disease Education Program and the [facility] literature.Reference ranges:60 or greater: Fbcckv70-91 ( for 3 consecutive months): Chronic kidney disease 15 or less: Kidney failureOakBend Medical CenterGlucose Eqzbn5056-16-70 18:19:00* Test Item Value Reference Range Interpretation Comments Glucose Level (test code = LYX1396) 141 74-118 H [facility] CenterCalcium Qdhtf6083-77-76 18:19:00* Test Item Value Reference Range Interpretation Comments Calcium Level (test code = 41542-9) 8.7 8.4-10.2 [facility] CenterTotal Zbhocjrrt3121-94-83 18:19:00* Test Item Value Reference Range Interpretation Comments Total Bilirubin (test code = 1975-2) 0.4 0.2-1.2 [facility] CenterAspartate Amino Transf (AST/SGOT) 2018-11-14 18:19:00* Test Item Value Reference Range Interpretation Comments Aspartate Amino Transf (AST/SGOT) (test code = Aspartate Amino Transf (AST/SGOT)) 23 5-34 [facility] CenterAlanine Aminotransferase (ALT/SGPT) 2018-11-14 18:19:00* Test Item Value Reference Range Interpretation Comments Alanine Aminotransferase (ALT/SGPT) (test code = 1742-6) 21 0-55 [facility] CenterTotal Kyzcxep2999-55-13 18:19:00* Test Item Value Reference Range Interpretation Comments Total Protein (test code = 2885-2) 7.5 6.5-8.1 [facility] CenterAlbumin2019-09-26 18:19:00* Test Item Value Reference Range Interpretation Comments Albumin (test code = 1751-7) 3.3 3.5-5.0 L [facility] CenterGlobulin2019-09-26 18:19:00* Test Item Value Reference Range Interpretation Comments Globulin (test code = 38161-0) 4.2 2.3-3.5 H [facility] CenterAlbumin/Globulin Wwglk3398-94-00 18:19:00 * Test Item Value Reference Range Interpretation Comments Albumin/Globulin Ratio (test code = 1759-0) 0.8 0.8-2.0 [facility] CenterAlkaline Awuzfmmyjby8883-13-20 18:19:00* Test Item Value Reference Range Interpretation Comments Alkaline Phosphatase (test code = 6768-6) 79 40-150 [facility] CenterCreatine Lrqffh6749-93-20 18:19:00* Test Item Value Reference Range Interpretation Comments Creatine Kinase (test code = 2157-6) 73 29-168 [facility] CenterLipase2019-09-26 18:19:00* Test Item Value Reference Range Interpretation Comments Lipase (test code = 3040-3) 10 8-78 [facility] CenterCreatine Gkspzv2973-16-59 18:19:00* Test Item Value Reference Range Interpretation Comments Creatine Kinase (test code = 2157-6) 73 29-168 [facility] CenterWhite Blood Nunjq2864-49-66 18:03:00* Test Item Value Reference Range Interpretation Comments White Blood Count (test code = 6690-2) 7.62 4.8-10.8 [facility] CenterRed Blood Aoxgs1982-84-22 18:03:00* Test Item Value Reference Range Interpretation Comments Red Blood Count (test code = 789-8) 4.14 3.6-5.1 [facility] CenterHemoglobin2019-09-26 18:03:00* Test Item Value Reference Range Interpretation Comments Hemoglobin (test code = 07916-8) 13.3 12.0-16.0 [facility] CenterHematocrit2019-09-26 18:03:00* Test Item Value Reference Range Interpretation Comments Hematocrit (test code = 4544-3) 39.0 34.2-44.1 [facility] CenterMean Corpuscular Wtdgcf3002-33-43 18:03:00* Test Item Value Reference Range Interpretation Comments Mean Corpuscular Volume (test code = 787-2) 94.2 81-99 [facility] CenterMean Corpuscular Rafkiptkry0285-88-79 18:03:00* Test Item Value Reference Range Interpretation Comments Mean Corpuscular Hemoglobin (test code = 785-6) 32.1 28-32 [facility] Corpuscular Hemoglobin Concent 2018-11-14 18:03:00* Test Item Value Reference Range Interpretation Comments Mean Corpuscular Hemoglobin Concent (test code = 786-4) 34.1 31-35 [facility] CenterRed Cell Distribution Iojaf8131-98-40 18:03:00* Test Item Value Reference Range Interpretation Comments Red Cell Distribution Width (test code = 34932-1) 12.4 11.7 -14.4 [facility] CenterPlatelet Mgsip5143-19-77 18:03:00* Test Item Value Reference Range Interpretation Comments Platelet Count (test code = 777-3) 248 140-360 [facility] CenterNeutrophils (%) (Auto)2018-11-14 18:03:00 * Test Item Value Reference Range Interpretation Comments Neutrophils (%) (Auto) (test code = 93633-2) 63.4 38.7-80.0 [facility] CenterLymphocytes (%) (Auto)2018-11-14 18:03:00 * Test Item Value Reference Range Interpretation Comments Lymphocytes (%) (Auto) (test code = 736-9) 25.9 18.0-39.1 [facility] CenterMonocytes (%) (Auto)2018-11-14 18:03:00* Test Item Value Reference Range Interpretation Comments Monocytes (%) (Auto) (test code = 5905-5) 5.4 4.4-11.3 [facility] CenterEosinophils (%) (Auto)2018-11-14 18:03:00 * Test Item Value Reference Range Interpretation Comments Eosinophils (%) (Auto) (test code = 713-8) 4.6 0.0-6.0 [facility] CenterBasophils (%) (Auto)2018-11-14 18:03:00* Test Item Value Reference Range Interpretation Comments Basophils (%) (Auto) (test code = 706-2) 0.3 0.0-1.0 [facility] CenterIM GRANULOCYTES %2018-11-14 18:03:00* Test Item Value Reference Range Interpretation Comments IM GRANULOCYTES % (test code = IM GRANULOCYTES %) 0.4 0.0- 1.0 [facility] CenterNeutrophils # (Auto)2018-11-14 18:03:00* Test Item Value Reference Range Interpretation Comments Neutrophils # (Auto) (test code = 751-8) 4.8 2.1-6.9 [facility] CenterLymphocytes # (Auto)2018-11-14 18:03:00* Test Item Value Reference Range Interpretation Comments Lymphocytes # (Auto) (test code = 60643-2) 2.0 1.0-3.2 [facility] CenterMonocytes # (Auto)2018-11-14 18:03:00* Test Item Value Reference Range Interpretation Comments Monocytes # (Auto) (test code = 742-7) 0.4 0.2-0.8 [facility] CenterEosinophils # (Auto)2018-11-14 18:03:00* Test Item Value Reference Range Interpretation Comments Eosinophils # (Auto) (test code = 711-2) 0.4 0.0-0.4 [facility] CenterBasophils # (Auto)2018-11-14 18:03:00* Test Item Value Reference Range Interpretation Comments Basophils # (Auto) (test code = 704-7) 0.0 0.0-0.1 [facility] CenterAbsolute Immature Granulocyte (auto 2018-11-14 18:03:00* Test Item Value Reference Range Interpretation Comments Absolute Immature Granulocyte (auto (sidney t code = Absolute Immature Granulocyte (auto) 0.03 0-0.1 [facility] CenterPROTHROMBIN HTRI5888-17-27 02:08:00* Test Item Value Reference Range Interpretation Comments PROTHROMBIN TIME PATIENT (test code = PTP) 10.3 seconds 9.0-13.0 N INTERNATIONAL NORMAL RATIO (test code = INR) 1.0 0.8-1.2 N The therapeutic range for oral anticoagulant therapy formost indications is an international normalized ratio (INR)of between 2.0 and 3.0. The recommended therapeutic INRrange for various clinical situations is listed below: Clinical Situation INR range Pulmonary e mbolism treatment (2.0-3.0)Venous thrombosis treatmentVenous thrombosis prophylaxis (high risk surgery)Prevention of systemic embolism from: Acute myocardial infarction Valvular heart disease Atrial fibrillation Mechanical prosthetic heart valves (2.5-3.5) IS PATIENT ON ANTICOAGULANTS? NTHROMBOPLASTIN TIME FKTBMGX5989-43-92 02:08:00* Test Item Value Reference Range Interpretation Comments THROMBOPLASTIN TIME PARTIAL (test code = PTT) 23.7 seconds 25.5-34. 3 L Therapeutic Range for patients on Heparin Therapy is 2 to2.5 times their baseline PTT level. IS PATIENT ON ANTICOAGULANTS? N- XR HAND 3 + V HK3427-71-99 01:59:00 Name: JESUS ASCENCIO [facility] : 1955 Age/S:63 /F [address] [facility] Unit#:[id number] [place]: [place] [address] Phys: Yury Mansfield MD Dis Date: PHONE #: [phone] Status: REG ER FAX #: [phone] Exam Date: 09/23/2018 Re ason: FALL EXAMS: CPT CODE: [id number] XR HAND 3 + [place] [id number] AFTER HOURS SERVICE ON: 09/23/2018 1:5 8 AM Left Hand, 3 Views Location Code M12 History: FALL Findings: There is normal anatomic alignment. No fracture, dislocation or avulsion fragments are seen. Ost eoarthritic changes noted of the interphalangeal joints. I mpression: No fracture. Electronically Sign ed by Natasha Bermudez M.D. on 09/23/2018 at 0159 Reported and signed by: Natasha ruelas M.D. CC: Technologist: TRUNG JONES RT(R),RDMS,CT Tr nscrpt Data: 09/23/2018 (015) JoannaMA50 Orig Print D/T : S: 09/23/2018 (7062) PAGE 1 Sig laurie Report - XR KNEE 3 V RI9583-97-83 01:58:00 Name: JESUS ASCENCIO [facility] : 1955 Age/S:63 /F [address] [facility] Unit#:[id number] Loc: [place] [address] Phys: Yury Mansfield MD Dis Date: PHONE #: [phone] Status: REG ER FAX #: [phone] Exam Date: 09/23/2018 Re ason: FALL EXAMS: CPT CODE: [id number] XR KNEE 3 [place] [id number] AFTER HOURS SERVICE ON: 09/23/2018 1:5 7 AM Left Knee, 4 Views Location Code M12 History: FALL Findings: There is normal anatomic alignment. There is osteopenia. Moderate degenerative changes are seen. There is no fracture or joint effusion. Impression: No fracture. Osteoarthritic changes and osteopen ia. at 0158 Reported and signed by: Natasha Bermudez M.D. CC: Technologist: TRUNG JONES( R),ROMS,CT [facility] Data: 09/23/2018 (0158) [place].MA5 0 Orig Print D/T: S: 09/23/2018 (0201) PAGE 1 Signed Report Stress Test - Treadmill ORDK7138-93-08 10:21:00 [place] [address] Patient Name : JESUS ASCENCIO MR #: [id number] : 1955 Age/Sex: 63/F Adm Physician : NIKKO OCONNOR MD Admit Date : 08/09/18 Location : [facility] Room/Bed : [place] [address] REPORT: Myoview Str ess Test DATE OF STUDY: 08/10/2018 19:18:00 Stress Test - Treadmill ON LY PROCEDURE TITLE: Rest/stress single isotope SPECT imaging with pharmac ologic stress and gated SPECT imaging. INDICATION: Pharmacologic stres s testing was performed with regadenoson per protocol. The heart rate was 67 beats per minute at rest and increased to 90 beats per minute during the r egadenoson infusion. The rest blood pressure was 110/58 mmHg and decreased to 92/55 mmHg, which is a normal response. The resting electrocardiogram demonstr ated normal sinus rhythm. There were no ST-segment changes suggestive of myoc ardial ischemia. Myocardial perfusion imaging was performed at rest fol lowing the injection of 10.8 mCi of tetrofosmin. At peak pharmacologic effect , the patient was injected with 33 mCi of tetrofosmin. Gated post-stress lela graphic imaging was performed. FINDINGS: The overall quality of study is fair. Left ventricular cavity is noted to be normal size on the rest and str ess studies. Gated SPECT images demonstrate homogeneous tracer distribution t hroughout the myocardium. Gated SPECT imaging reveals normal myocardial thick ening and wall motion. The left ventricular ejection fraction was calculated to be greater than 70%. IMPRESSION: Myocardial perfusion imaging is norm al. Overall left ventricular systolic function was normal without regional wa ll motion abnormalities. Jason Ross MD ABS/MACO : 38 /[id number] Signature Date Dictated By: RAGHAV ROSS MD Transcribed By: MODL on 08/29/18 <Electronically signed by RAGHAV ROSS MD><<Signature on File>>09/19/18 0302 COPY TO: Bedside Kgbeupc2342-72-45 20:28:00* Test Item Value Reference Range Interpretation Comments Bedside Glucose (test code = 97600-1) 129 70-120 H Meter ID: [id number] [facility] Glucose 2018-08-27 20:28:00* Test Item Value Reference Range Interpretation Comments Bedside Glucose (test code = 72541-6) 129 70-120 H Meter ID: [id number] Medical CenterBlpaynesville hospital Culture 2018-08-15 23:05:00* Test Item Value Reference Range Interpretation Comments Blood Culture (test code = 77529265) NO GROWTH AFTER 5 DAYS, FINAL REPORT [facility] Afhfhxh0136-81-00 23:05:00* Test Item Value Reference Range Interpretation Comments Blood Culture (test code = 96922866) NO GROWTH AFTER 5 DAYS, FINAL REPORT [facility] CenterCarcinoembryonic Kjnovvo3785-68-82 05:23:00* Test Item Value Reference Range Interpretation Comments Carcinoembryonic Antigen (test code = 2039-6) 1.8 0.0-4.7 Nonsmokers <3.9 Smokers <5.6[employer] Electrochemiluminescence Immunoassay(ECLIA)Values obtained with different assay methods or kitscannot be used interchangeably. Results cannot beinterpreted as absolute evidence of the presence orabsence of malignant disease.Performed at: [facility] [id number] Director: John Paul Painter MD, Phone: [phone] Medical CenterCarcinoembryonic Antigen 2018-08-13 05:23:00* Test Item Value Reference Range Interpretation Comments Carcinoembryonic Antigen (test code = 2039-6) 1.8 0.0-4.7 Nonsmokers <3.9 Smokers <5.6[employer] Electrochemiluminescence Immunoassay(ECLIA)Values obtained with different assay methods or kitscannot be used interchangeably. Results cannot beinterpreted as absolute evidence of the presence orabsence of malignant disease.Performed at: [facility] [id number] Director: John Paul Painter MD, Phone: [phone] R. Darnall [facility] Jcfgexk9486-34-26 15:54:00* Test Item Value Reference Range Interpretation Comments Bedside Glucose (test code = 99404-3) 109 70-120 Meter ID: [id number] Medical CenterBlood Culture 2018-08-11 23:05:00* Test Item Value Reference Range Interpretation Comments Blood Culture (test code = 02826676) NO GROWTH AFTER 24 HOURS [facility] CenterCholesterol Skzvu7723-80-49 16:57:00* Test Item Value Reference Range Interpretation Comments Cholesterol Level (test code = 3-3) 157 0-199 Less than 200 mg/dL Low Gmsm466 - 239 mg/dL Borderline Kigb737 m g/dl and greater High Risk [facility] CenterLDL Lrcmtihvtdh4585-94-91 16:57:00* Test Item Value Reference Range Interpretation Comments LDL Cholesterol (test code = 9-1) 88 60-130 [facility] CenterCholesterol/HDL Hfqhj2624-59-27 16:57:00 * Test Item Value Reference Range Interpretation Comments Cholesterol/HDL Ratio (test code = 9830-1) 3.6 3.0-3.6 [facility] CenterCholesterol Gypcp1578-89-59 16:57:00* Test Item Value Reference Range Interpretation Comments Cholesterol Level (test code = 2092-3) 157 0-199 Less than 200 mg/dL Low Dpeq732 - 239 mg/dL Borderline Ytqu768 m g/dl and greater High Risk [facility] CenterLDL Ehwfqihtvji0559-91-21 16:57:00* Test Item Value Reference Range Interpretation Comments LDL Cholesterol (test code = 9-1) 88 60-130 [facility] CenterCholesterol/HDL Jkzio8730-91-94 16:57:00 * Test Item Value Reference Range Interpretation Comments Cholesterol/HDL Ratio (test code = 9830-1) 3.6 3.0-3.6 [facility] CenterCholesterol Fclxy6555-80-35 16:57:00* Test Item Value Reference Range Interpretation Comments Cholesterol Level (test code = 2092-3) 157 0-199 Less than 200 mg/dL Low Appi245 - 239 mg/dL Borderline Kepr004 m g/dl and greater High Risk [facility] CenterLDL Uhaqxagjvop9730-13-30 16:57:00* Test Item Value Reference Range Interpretation Comments LDL Cholesterol (test code = 2089-1) 88 60-130 [facility] CenterCholesterol/HDL Pnpzl5457-48-21 16:57:00 * Test Item Value Reference Range Interpretation Comments Cholesterol/HDL Ratio (test code = 9830-1) 3.6 3.0-3.6 [facility] CenterTriglycerides Wtufo3467-45-25 16:19:00* Test Item Value Reference Range Interpretation Comments Triglycerides Level (test code = 2571-8) 124 0-149 [facility] CenterHDL Zfkpfoiydqh8189-65-85 16:19:00* Test Item Value Reference Range Interpretation Comments HDL Cholesterol (test code = 2085-9) 44 40-60 [facility] CenterTriglycerides Wkion2481-66-84 16:19:00* Test Item Value Reference Range Interpretation Comments Triglycerides Level (test code = 2571-8) 124 0-149 [facility] CenterHD Larjwlszpqx1524-04-86 16:19:00* Test Item Value Reference Range Interpretation Comments HDL Cholesterol (test code = 2085-9) 44 40-60 [facility] CenterTriglycerides Kknnu2333-53-59 16:19:00* Test Item Value Reference Range Interpretation Comments Triglycerides Level (test code = 2571-8) 124 0-149 [facility] Zqpgdngpktj9504-23-77 16:19:00* Test Item Value Reference Range Interpretation Comments HDL Cholesterol (test code = 2085-9) 44 40-60 [facility] CenterCHEST SINGLE (PORTABLE)2018-08-10 07:36:00 [place] [address] Patient Name: JESUS ASCENCIO MR #: [id number] : 1955 Age/Sex: 63/F Req #: [id number] Adm Physician: NIKKO OCONNOR MD Ordered by: JOHNNY MCCORMICK FLOOR REPRESENTATIVE Report #: [id number] Location: [facility] Room/Bed: IMCU 175-1 Procedure: [id number] DX/CHES T SINGLE (PORTABLE) Exam Date: 08/10/18 Exam Time: 0 605 REPORT STATUS: Signed EXAMIN ATION: CHEST SINGLE (PORTABLE) INDICATION: CP/SOB [id number] 2 0605 COMPARISON: CT chest and chest radiograph 08/09/2018 FINDINGS: AP view TUBES and LINES: Right PICC with tip overlying the cubital junction, unchanged. Left chest port with tip overlying the caval atr ial junction, unchanged. LUNGS: Lungs are well inflated. Platelike atel ectasis in both lung bases, new since prior exam. There is no evidence of pn eumonia or pulmonary edema. PLEURA: No pleural effusion or pneumothorax. HEART AND MEDIASTINUM: The cardiomediastinal silhouette is unremarkable.. BONES AND SOFT TISSUES: No acute osseous lesion. Soft tissues are unre markable. UPPER ABDOMEN: No free air under the diaphragm. IMPRESSI ON: Interval development of mild platelike atelectasis in both lung bases. Signed by: Dr. Kathia Keith M.D. on 08/10/2018 7:38 AM D ictated By: KATHIA KEITH MD 7 Transcribed By: DARION on 08/10/18737 CO PY TO: JOHNNY MCCORMICK FLOOR REPRESENTATIVE Creatine Kinase PM7748-45-92 07:23:00* Test Item Value Reference Range Interpretation Comments Creatine Kinase MB (test code = 64342-4) 0.70 0-5.0 [facility] CenterTroponin H3654-80-04 07:23:00* Test Item Value Reference Range Interpretation Comments Troponin I (test code = SQH6181) < 0.001 0-0.300 [facility] Xxmtk7358-78-17 07:04:00* Test Item Value Reference Range Interpretation Comments Sodium Level (test code = 2951-2) 140 136-145 [facility] CenterPotassium Ghail9303-38-40 07:04:00* Test Item Value Reference Range Interpretation Comments Potassium Level (test code = 2823-3) 4.1 3.5-5.1 [facility] CenterChloride Hzimz7307-44-93 07:04:00* Test Item Value Reference Range Interpretation Comments Chloride Level (test code = 2075-0) 108 98-107 H [facility] CenterCarbon Dioxide Rmebb0444-35-45 07:04:00* Test Item Value Reference Range Interpretation Comments Carbon Dioxide Level (test code = 2028-9) 24 22-29 [facility] CenterAnion Nqs3805-40-64 07:04:00* Test Item Value Reference Range Interpretation Comments Anion Gap (test code = 70800-5) 12.1 8-16 [facility] CenterBlood Urea Yejngmql7810-46-10 07:04:00* Test Item Value Reference Range Interpretation Comments Blood Urea Nitrogen (test code = 3094-0) 19 7-26 [facility] CenterCreatinine2019-06-22 07:04:00* Test Item Value Reference Range Interpretation Comments Creatinine (test code = 2160-0) 0.74 0.57-1.11 [facility] CenterBUN/Creatinine Bytxm6496-74-76 07:04:00* Test Item Value Reference Range Interpretation Comments BUN/Creatinine Ratio (test code = 3097-3) 26 6-25 H [facility] CenterEstimat Glomerular Filtration Rate 2018-08-10 07:04:00* Test Item Value Reference Range Interpretation Comments Estimat Glomerular Filtration Rate (test code = 503449723) > 60 >60 Ranges were taken from the National Kidney Disease Education Program and the [facility] Kid[facility] Foundation literature.Reference ranges:60 or greater: Ehctau85-26 ( for 3 consecutive months): Chronic kidney disease 15 or less: Kidney failureOakBend Medical CenterGlucose Ligaa9469-17-50 07:04:00* Test Item Value Reference Range Interpretation Comments Glucose Level (test code = QPY1803) 104 74-118 [facility] CenterCalcium Pklsq6432-77-23 07:04:00* Test Item Value Reference Range Interpretation Comments Calcium Level (test code = 54249-5) 8.5 8.4-10.2 [facility] CenterCreatine Yrzomd7051-35-82 07:04:00* Test Item Value Reference Range Interpretation Comments Creatine Kinase (test code = 2157-6) 37 29-168 [facility] CenterWhite Blood Rqizw9142-29-04 06:59:00* Test Item Value Reference Range Interpretation Comments White Blood Count (test code = 6690-2) 6.68 4.8-10.8 [facility] CenterRed Blood Ulive3683-25-21 06:59:00* Test Item Value Reference Range Interpretation Comments Red Blood Count (test code = 789-8) 3.77 3.6-5.1 [facility] CenterHemoglobin2019-06-22 06:59:00* Test Item Value Reference Range Interpretation Comments Hemoglobin (test code = 15833-1) 12.3 12.0-16.0 [facility] CenterHematocrit2019-06-22 06:59:00* Test Item Value Reference Range Interpretation Comments Hematocrit (test code = 4544-3) 36.2 34.2-44.1 [facility] CenterMean Corpuscular Omiiay0817-05-35 06:59:00* Test Item Value Reference Range Interpretation Comments Mean Corpuscular Volume (test code = 787-2) 96.0 81-99 [facility] CenterMean Corpuscular Idadgczlgx6584-27-80 06:59:00* Test Item Value Reference Range Interpretation Comments Mean Corpuscular Hemoglobin (test code = 785-6) 32.6 28-32 H [facility] CenterMean Corpuscular Hemoglobin Concent 2018-08-10 06:59:00* Test Item Value Reference Range Interpretation Comments Mean Corpuscular Hemoglobin Concent (test code = 786-4) 34.0 31-35 [facility] CenterRed Cell Distribution Mqjsm3452-68-55 06:59:00* Test Item Value Reference Range Interpretation Comments Red Cell Distribution Width (test code = 74133-1) 12.7 11.7 -14.4 [facility] CenterPlatelet Dqmrz3689-46-45 06:59:00* Test Item Value Reference Range Interpretation Comments Platelet Count (test code = 777-3) 228 140-360 [facility] CenterNeutrophils (%) (Auto)2018-08-10 06:59:00 * Test Item Value Reference Range Interpretation Comments Neutrophils (%) (Auto) (test code = 50771-3) 42.5 38.7-80.0 [facility] CenterLymphocytes (%) (Auto)2018-08-10 06:59:00 * Test Item Value Reference Range Interpretation Comments Lymphocytes (%) (Auto) (test code = 736-9) 42.7 18.0-39.1 H [facility] CenterMonocytes (%) (Auto)2018-08-10 06:59:00* Test Item Value Reference Range Interpretation Comments Monocytes (%) (Auto) (test code = 5905-5) 7.3 4.4-11.3 [facility] CenterEosinophils (%) (Auto)2018-08-10 06:59:00 * Test Item Value Reference Range Interpretation Comments Eosinophils (%) (Auto) (test code = 713-8) 6.6 0.0-6.0 H [facility] CenterBasophils (%) (Auto)2018-08-10 06:59:00* Test Item Value Reference Range Interpretation Comments Basophils (%) (Auto) (test code = 706-2) 0.6 0.0-1.0 [facility] CenterIM GRANULOCYTES %2018-08-10 06:59:00* Test Item Value Reference Range Interpretation Comments IM GRANULOCYTES % (test code = IM GRANULOCYTES %) 0.3 0.0- 1.0 [facility] CenterNeutrophils # (Auto)2018-08-10 06:59:00* Test Item Value Reference Range Interpretation Comments Neutrophils # (Auto) (test code = 751-8) 2.8 2.1-6.9 [facility] CenterLymphocytes # (Auto)2018-08-10 06:59:00* Test Item Value Reference Range Interpretation Comments Lymphocytes # (Auto) (test code = 87040-4) 2.9 1.0-3.2 [facility] CenterMonocytes # (Auto)2018-08-10 06:59:00* Test Item Value Reference Range Interpretation Comments Monocytes # (Auto) (test code = 742-7) 0.5 0.2-0.8 [facility] CenterEosinophils # (Auto)2018-08-10 06:59:00* Test Item Value Reference Range Interpretation Comments Eosinophils # (Auto) (test code = 711-2) 0.4 0.0-0.4 [facility] CenterBasophils # (Auto)2018-08-10 06:59:00* Test Item Value Reference Range Interpretation Comments Basophils # (Auto) (test code = 704-7) 0.0 0.0-0.1 [facility] CenterAbsolute Immature Granulocyte (auto 2018-08-10 06:59:00* Test Item Value Reference Range Interpretation Comments Absolute Immature Granulocyte (auto (sidney t code = Absolute Immature Granulocyte (auto) 0.02 0-0.1 [facility] CenterProthrombin Vitp4417-29-55 06:58:00* Test Item Value Reference Range Interpretation Comments Prothrombin Time (test code = 5902-2) 13.4 11.9-14.5 [facility] CenterProthromb Time International Ratio 2018-08-10 06:58:00* Test Item Value Reference Range Interpretation Comments Prothromb Time International Ratio (test code = 6301-6) 0.97 Oral Anticoagulant Therapy INR Values:1. Low Intensity Therapy 1.5 - 2.02 . Moderate Intensity Therapy 2.0 - 3.03. High Intensity Therapy(1) 2.5 - 3. 54. High Intensity Therapy(2) 3.0 - 4.05. Panic Value INR > 5.0 [facility] CenterActivated Partial Thromboplast Time 2018-08-10 06:58:00* Test Item Value Reference Range Interpretation Comments Activated Partial Thromboplast Time (test code = 00266-9) 29.2 23.8-35.5 [facility] K8596-80-67 19:36:00 [facility] [address] [place] [address] Patient Name: JESUS ASCENCIO MR #: [id number] : 1955 Age/Sex: 63/F Req #: [id number] Adm Physician: NIKKO OCONNOR MD Ordered by: JOHNNY MCCORMICK FLOOR REPRESENTATIVE Report #: [id number] Location: [facility] [place]/Bed: [place] [address] Procedure: [id number] CT/CT C HEST W Exam Date: 08/09/18 Exam Time: 1849 REPORT STATUS: Signed CT chest pulmonary embolism protocol CPT code: 49066 INDICATION: Chest pain PE protocol [id number] 1849 TECHNIQUE: Thin collimation axial images obtained thro ugh the level of the pulmonary arteries with additional imaging through the est following the uneventful administration of 100 cc of low osmolar, nonionic intravenous contrast. Images reconstructed into coronal and sagittal MIPs fo r complete evaluation of the tortuous and overlapping pulmonary vascular struc tures and to reduce patient radiation dose. RADIATION DOSE: Total DLP: 502.5 mGy*cm Estimated effective dose: (DLP x 0.015 x size factor) mSv CTDIvol has been reviewed. It is below the limits set by the Radiatio n Protocol Committee (RPC). Dose reduction techniques used: Automated exp osure control, adjustment of the mAs and/or kVp according to patient size, sta ndardized low-dose protocol, and/or iterative reconstruction technique. C OMPARISON: CT abdomen 03/28/2018 FINDINGS: Pulmonary artery: No filling def ects are appreciated within the main, left, right, lobar or visualized segment al pulmonary arteries to suggest embolism. Aorta: The thoracic aorta is n ot aneurysmal. No evidence for dissection. Lymph nodes: No enlarged axilla ry, supraclavicular, mediastinal, or hilar lymph nodes. Thyroid: Normal i n size without mass in the visualized parenchyma.. Mediastinum: The heart i s normal in size. There are prominent pericardial fat pads. There is a small h iatal hernia. No pericardial effusion. Right PICC line terminates in the SVC. MediPort catheter terminates in the SVC. Lungs: Right Lung: Mild bas ilar atelectasis. Noncalcified nodule in the posterior upper lobe measures 4 m m. No consolidation. Left Lung: Mild basilar atelectasis. No mass or infil trate. Pleura: No pleural effusion or pleural based mass.. Abdomen: De creased attenuation suggestive of steatosis. No mass in the visualized portion of the liver. The gallbladder is absent. There is fatty atrophy of the pancre as. Remainder of the abdomen appears normal. Bones: Mild degenerative wang es of the spine. No focal osseous lesions. IMPRESSION: 1. No evidence of pulmonary embolus or aortic dissection. 2. Mild bibasilar atelectasis. No nspecific nodule in the right upper lobe. 3. Steatosis. Signed by: Dr. Pari MD on 08/09/2018 7:40 PM Dictated By: LETITIA Kraft 39 Transcribed By: DARION on 08/09/181939 COPY TO: JOHNNY MCCORMICK NP CHEST XRAY LINE [id number] 18:27:00 [place] [address] Patient Name: JESUS ASCENCIO MR #: [id number] : 1955 Age/Sex: 63/F Req #: [id number] Adm Physician: NIKKO OCONNOR MD Ordered by: TONYA ALANIS MD Report #: [id number] Location: [facility] Room/Bed: [place] [address] Procedure: [id number] DX/CHES T XRAY LINE PLACEMENT Exam Date: 08/09/18 Exam Time: 1720 REPORT STATUS: Signed EXAM INATION: CHEST XRAY LINE PLACEMENT COMPARISON: Chest x-ray 1322 hours INDICATION: PICC LINE PLACEMENT [id number] DISCUSSION : Frontal view of the chest obtained at 1731 hours. HEART AND MEDIASTINUM : The cardiomediastinal silhouette is unremarkable. LINES: MediPort cat heter terminates in the SVC and is stable in position. Right PICC line termina sidney in the SVC. No pneumothorax. LUNGS: The lungs are well inflated and cl ear. No pneumonia or pulmonary edema. PLEURA: No pleural effusions. B ONES AND SOFT TISSUES: Stable degenerative changes of the spine and right AC joint. No focal osseous lesion. The soft tissues are normal. IMPRESSION: Right PICC line terminates in the SVC without pneumothorax. Stable MediPor t catheter. No acute cardiopulmonary process. Signed by: Dr. Letitia vargas MD on 08/09/2018 6:28 PM Dictated By: LETITIA NAIR MD Electro nically Signed By: LETITIA NAIR MD on 08/09/181827 Transcribed By: SAYRA Fierro on 08/09/181827 COPY TO: TONYA ALANIS MD Urine [id number] 14:11:00* Test Item Value Reference Range Interpretation Comments Urine WBC (test code = 5821-4) NONE 0-5 [facility] [id number] 14:11:00* Test Item Value Reference Range Interpretation Comments Urine RBC (test code = 31039-5) 6-10 0-5 H [facility] Wfsdzenl3520-93-66 14:11:00* Test Item Value Reference Range Interpretation Comments Urine Bacteria (test code = 23638-2) MANY NONE H [facility] Epithelial Erqdr9218-56-44 14:11:00 * Test Item Value Reference Range Interpretation Comments Urine Epithelial Cells (test code = 49053-7) MODERATE NONE [facility] Amorphous Bvnzvlqf9243-15-15 14:11:00* Test Item Value Reference Range Interpretation Comments Urine Amorphous Sediment (test code = 8246-1) MODERATE FEW H [facility] Amorphous Nsmbvngx9067-59-85 14:11:00* Test Item Value Reference Range Interpretation Comments Urine Amorphous Sediment (test code = 8246-1) MODERATE FEW H [facility] Amorphous Gcxjfbak0335-83-38 14:11:00* Test Item Value Reference Range Interpretation Comments Urine Amorphous Sediment (test code = 8246-1) MODERATE FEW H [facility] Brnwc2363-48-13 14:09:00* Test Item Value Reference Range Interpretation Comments Urine Color (test code = 5778-6) YELLOW YELLOW [facility] Embgyta4833-23-18 14:09:00* Test Item Value Reference Range Interpretation Comments Urine Clarity (test code = 96786-1) CLEAR CLEAR [facility] Specific Ntxaqct6661-64-71 14:09:00 * Test Item Value Reference Range Interpretation Comments Urine Specific [place] (test code = 5811-5) 1.025 1.010-1.02 5 [facility] [id number] 14:09:00* Test Item Value Reference Range Interpretation Comments Urine pH (test code = 08469-0) 6 5-7 [facility] Leukocyte Dgcjxuay9892-64-26 14:09:00* Test Item Value Reference Range Interpretation Comments Urine Leukocyte Esterase (test code = 07350-3) TRACE NEGATIV E H [facility] Mpsttmn0042-76-16 14:09:00* Test Item Value Reference Range Interpretation Comments Urine Nitrite (test code = 97259-0) NEGATIVE NEGATIVE [facility] Aefwpoc0092-55-36 14:09:00* Test Item Value Reference Range Interpretation Comments Urine Protein (test code = 02346-7) NEGATIVE NEGATIVE [facility] Glucose (UA)2018-08-09 14:09:00* Test Item Value Reference Range Interpretation Comments Urine Glucose (UA) (test code = 91814-4) NEGATIVE NEGATIVE [facility] Soeeemh3643-49-20 14:09:00* Test Item Value Reference Range Interpretation Comments Urine Ketones (test code = 86212-1) NEGATIVE NEGATIVE [facility] Qwdhhrqlabip7929-50-65 14:09:00* Test Item Value Reference Range Interpretation Comments Urine Urobilinogen (test code = 38500-7) 0.2 0.2-1 [facility] Hcxcjdcsq0734-89-79 14:09:00* Test Item Value Reference Range Interpretation Comments Urine Bilirubin (test code = 1977-8) NEGATIVE NEGATIVE [facility] Kgntf9108-55-67 14:09:00* Test Item Value Reference Range Interpretation Comments Urine Blood (test code = 10151-4) MODERATE NEGATIVE [facility] 2 [id number] 14:08:00 [facility] [address] [place] [address] Patient Name: JESUS ASCENCIO MR #: [id number] : 1955 Age/Sex: 63/F Req #: [id number] Adm Physician: Ordered by: TONYA ALANIS MD Report #: [id number] Location: [facility] g[facility]/Bed: Procedure: [id number] DX/CHES T 2 VIEWS Exam Date: 08/09/18 Exam Time: 1330 REPORT STATUS: Signed EXAM: CHEST 2 EWS, PA and lateral DATE: 08/09/2018 Time stamp on exam: 1:22 PM INDICATION: Chest pain COMPARISON: None FINDINGS: LINES/TUBES: Left subclavian lupe st port with tip overlying the SVC. LUNGS: No consolidations or edema. PLEURA: No effusions or pneumothorax. HEART AND MEDIASTINUM: Normal size and contour. BONES AND SOFT TISSUES: No acute findings. IMPRESSION: No acute thoracic abnormality. Signed by: Abena Ford on 08/09/2018 2:09 PM Dictated By: ANNA PETERSON DO Electronically Sign ed By: ANNA PETERSON DO on 08/09/18 1409 Transcribed By: DARION on 08/09/18 14 09 COPY TO: TONYA ALANIS MD B-Type Natriuretic Peptide 2018-08-09 13:22:00* Test Item Value Reference Range Interpretation Comments B-Type Natriuretic Peptide (test code = 55235-5) < 10.0 0-100 [facility] Xdqimdu6637-71-66 13:22:00* Test Item Value Reference Range Interpretation Comments B-Type Natriuretic Peptide (test code = 03645-8) < 10.0 0-100 [facility] Natri[facility]tic Qfszbmg7125-23-43 13:22:00* Test Item Value Reference Range Interpretation Comments B-Type Natriuretic Peptide (test code = 26714-7) < 10.0 0-100 [facility] Wbggz8288-60-83 13:00:00* Test Item Value Reference Range Interpretation Comments Magnesium Level (test code = 17473-2) 2.4 1.3-2.1 H [facility] Center[facility] Zilgcocgn2032-93-43 13:00:00* Test Item Value Reference Range Interpretation Comments Total Bilirubin (test code = 1975-2) 0.6 0.2-1.2 [facility] Center[facility]artate Amino Transf (AST/SGOT) 2018-08-09 13:00:00* Test Item Value Reference Range Interpretation Comments Aspartate Amino Transf (AST/SGOT) (test code = Aspartate Amino Transf (AST/SGOT)) 20 5-34 [facility] Aminotransferase (ALT/SGPT) 2018-08-09 13:00:00* Test Item Value Reference Range Interpretation Comments Alanine Aminotransferase (ALT/SGPT) (test code = 1742-6) 20 0-55 [facility] Center[facility] Aufgbph5855-63-79 13:00:00* Test Item Value Reference Range Interpretation Comments Total Protein (test code = 2885-2) 8.0 6.5-8.1 [facility] Center[facility]in2019-06-21 13:00:00* Test Item Value Reference Range Interpretation Comments Albumin (test code = 1751-7) 3.7 3.5-5.0 [facility] CenterGlobulin2019-06-21 13:00:00* Test Item Value Reference Range Interpretation Comments Globulin (test code = 09771-8) 4.3 2.3-3.5 H [facility] CenterAlbumin/Globulin Cwmjo8362-12-98 13:00:00 * Test Item Value Reference Range Interpretation Comments Albumin/Globulin Ratio (test code = 1759-0) 0.9 0.8-2.0 [facility] CenterAlkaline Awunixyaufl4405-78-11 13:00:00* Test Item Value Reference Range Interpretation Comments Alkaline Phosphatase (test code = 6768-6) 84 40-150 [facility]esium Jjisk7582-61-28 13:00:00* Test Item Value Reference Range Interpretation Comments Magnesium Level (test code = 16721-6) 2.4 1.3-2.1 H [facility] CenterMagnesium Wohjh5326-27-86 13:00:00* Test Item Value Reference Range Interpretation Comments Magnesium Level (test code = 80128-2) 2.4 1.3-2.1 H [facility] CenterD-Dimer Quantitative (PE/DVT)2018-08-09 12:54:00* Test Item Value Reference Range Interpretation Comments D-Dimer Quantitative (PE/DVT) (test code = 46114-5) 0.53 0. 00-0.45 H As with all in vitro diagnostic tests, the test results should be interpreted by the physician in conjunction with clinical findings and other test results.Test results are reported in NEW D-dimer units(ug/mLFEU).[facility] CenterD-Dimer Quantitative (PE/DVT)2018-08-09 12:54:00* Test Item Value Reference Range Interpretation Comments D-Dimer Quantitative (PE/DVT) (test code = 74521-2) 0.53 0. 00-0.45 H As with all in vitro diagnostic tests, the test results should be interpreted by the physician in conjunction with clinical findings and other test results.Test results are reported in NEW D-dimer units(ug/mLFEU).[facility] CenterD-Dimer Quantitative (PE/DVT)2018-08-09 12:54:00* Test Item Value Reference Range Interpretation Comments D-Dimer Quantitative (PE/DVT) (test code = 62802-4) 0.53 0. 00-0.45 H As with all in vitro diagnostic tests, the test results should be interpreted by the physician in conjunction with clinical findings and other test results.Test results are reported in NEW D-dimer units(ug/mLFEU).[facility] CenterGLUCOSE BEDSIDE [id number] 13:33:00* Test Item Value Reference Range Interpretation Comments GLUCOSE BEDSIDE TESTING (test code = GLUBED) 100 MG/DL 70-119 N GLUCOSE BEDSIDE [id number] 09:24:00* Test Item Value Reference Range Interpretation Comments GLUCOSE BEDSIDE TESTING (test code = GLUBED) 114 MG/DL 70-119 N - NM MYOCRD SPECT R/S [id number] 15:40:00 Patient Name: JESUS ASCENCIO Unit No: [id number] EXAMS: CPT CODE: [id number] NM MYOC RD SPECT R/S MULT 52880 Lexiscan Myocardial Perfusion Imaging Indication: Chest pain, CAD Atte nding:Abbas Procedure: Stress testing was performed via Lexiscan protocol. 13.5 mCi of Tc99m Sestamibi was injected and rest images were obtained. The patient then underwent Lexiscan infusion per p rotocol. Next, 27.1 mCi of Tc99m Sestamibi mCi was injected and stress im ages were obtained. Description of findings: There was h omogenous radiotracer distribution at stress and rest except for a medium sized mild intensity anterior defect seen at stress and not at rest. LVEF was calculated to be 74%%. Wall motion was normal. Impr ession: 1. Abnormal study 2. Anterior reversible de fect suggestive of ischemia 3. LVEF of 74% Electronically S igned by Jose L Peters MD on 07/31/2018 at 3188 Reporte d and signed by: Jose L Peters MD Nuclear Medicine Cardiology exams performed on dual head cameras with appropriate software f or processing and reporting. CC: Jorgito Ndiaye FLOOR REPRESENTATIVE; Jamil Kwan MD [facility] NAME: JESUS ASCENCIO MEDICAL IMAGING PHYS : Jorgito Mayen NP [address] [place] [address] : [birth year] AGE: 63 SEX: CAROL[place] LUCAS [phone] [phone] LOC: B.240 W PHONE #: [phone] EXAM DATE: 08/01/19 STATUS: ADM IN FAX #: [phone] RAD NO: DC Dt : PAGE 1 Signed Report Patient Name: JESUS ASCENCIO Unit No: [id number] EXAMS: CPT CODE: [id number] NM MYOCRD SPECT R/S MULT 13976 <Continued> Technologist: SAMEER STREETER. [facility]; RAGHAV ROCKWELL; .. Transcri bed Date/Time: 07/31/2018 (9308) - JoannaHY1 Orig Print D/T: S: 07/31/2018 (4869) [facility] Alex NAME: JESUS ASCENCIO MEDICAL IMAGING PHYS: Jorgito Mayen NP [address] [place] [address] BLVD : 1955 AGE: 63 SEX: F [place] J[place] [address] LOC: B.240 W PHONE #: [phone] EX AM DATE: 07/31/2018 STATUS: ADM IN FAX #: [phone] RAD NO: DC Dt: PAGE 2 Signed Report GLUCOSE BEDSIDE OHPZPRO3007-02-17 15:04:00* Test Item Value Reference Range Interpretation Comments GLUCOSE BEDSIDE TESTING (test code = GLUBED) 128 MG/DL 70-119 H LIPID PROFILE (CORONARY RISK)2018-07-31 12:37:00* Test Item Value Reference Range Interpretation Comments TRIGLYCERIDES (test code = TRIG) 91 MG/DL 0-150 N Results may be depressed if patient is takingN-Acetylcysteine (NAC) and Metamizole (Dipyrone). CHOLESTEROL (test code = CHOL) 159 MG/DL 133-200 N CHOLESTEROL/HDL RATIO (test code = CHOLHDL) 3.78 RATIO >0 REFERENCE RANGE: MALE FEMALE 1/2 AVG RISK 3.43 3.27 AVG RISK 4.97 4.44 2X AVG RISK 9.55 7.05 3X AVG RISK 23.39 11.04 HDL CHOLESTEROL (test code = HDL) 42 MG/DL 40-59 N Results maybe depressed if patient is taking Metamizole(Dipyrone). NON-HDL CHOLESTEROL (test code = NHDL) 117 mg/dL <130 Patients with CHD or CHD risk LDL: <70 mg/dL nonHDL: <100 mg/dLPatients with 2+ risk factors LDL: <130 mg/dL nonHDL: <160 mg/dLPatients with 0-1 risk factors LDL: <160 mg/dL nonHDL: <190 mg/dL LIPOPROTEIN LDL (test code = LDL) 99 MG/DL 0-129 N LDL/HDL (test code = LDL/HDL) 2.35 Ratio 1.48-3.22 Avg N LDL/HDL RISK ASSESSMENT1.47 One-half average3.22 Average5.03 Two times average6.14 Three times average INDEX HEMOLYSIS (test code = HEMINDEX) 1 NORMAL <10 MG Index/DL 1 N ORMAL INDEX ICTERIC (test code = ICTINDEX) 1 NORMAL <2 MG Index/DL 1 NORM AL INDEX LIPEMIA (test code = LIPINDEX) 1 NORMAL <50 MG Index/DL 1 NOR MAL - US CHST W/[id number] 11:45:00 Patient Name: JESUS ASCENCIO Unit No: [id number] EXAMS: CPT CODE: [id number] US CHST W/MEDIASTINUM [address] LOCATION: T18 Soft tissue ultrasound left chest INDICATION: Chest pain and shortness of breath The soft tissues around the Port-A-Cath, left upper chest wall were evaluated. There is some shadowing from the Port-A-Cath itself. I do not see evidence of an abscess, drainable fluid collection or hematoma. at 1145 Reported and signed by: Genaro Henning D.O. CC: Tor Carmichael MD; Jamil Kwan MD Technologist: Komal Cohen [facility] Trnscrbd D/ (1145) JoannaJTM Probe: Orig Print D/T: S: 07/31/2018 (1148) Probe: MARIANA Johnson NAME: JESUS ASCENCIO MEDICAL IMAGING PHYS: CHAHU.[facility] [address] : 1955 AGE: 63 SEX: F [place], [place] [address] [facility]: [id number] LOC: B.240 W PHONE #: [phone] EXAM DATE: 07/31/2018 STATUS: ADM IN FAX #: [phone] RAD NO: Page 1 Signed Report [id number] 09:27:00* Test Item Value Reference Range Interpretation Comments TROPONIN-I (test code = TROPI) < 0.015 NG/ML 0.000-0.045 N An elevated troponin value alone is not sufficient todiagnose a myocardial infarction. Rather, the patient'sclinical presentation (history, physical exam) and ECGshould be used in conjunction with troponin in thediagnostic evaluation of suspected myocardial infarction. Aserial sampling protocol is recommended to facilitate theidentification of temporal changes in troponin levelscharacteristic of [place]. [id number] 04:52:00* Test Item Value Reference Range Interpretation Comments TROPONIN-I (test code = TROPI) < 0.015 NG/ML 0.000-0.045 N An elevated troponin value alone is not sufficient todiagnose a myocardial infarction. Rather, the patient'sclinical presentation (history, physical exam) and ECGshould be used in conjunction with troponin in thediagnostic evaluation of suspected myocardial infarction. Aserial sampling protocol is recommended to facilitate theidentification of temporal changes in troponin levelscharacteristic of [place]. URINALYSIS PZBVDCOK9003-10-90 03:32:00* Test Item Value Reference Range Interpretation Comments UA COLOR (test code = COLU) YELLOW DESCRIPT YELLOW UA APPEARANCE (test code = APPU) HAZY DESCRIPT CLEAR UA GLUCOSE DIPSTICK (test code = DGLUU) NEGATIVE (0) mg/dL (NEG) 0 UA BILIRUBIN DIPSTICK (test code = BILU) NEGATIVE (0) mg/dL (NEG) 0 UA KETONE DIPSTICK (test code = KETU) 0 (NEG) mg/dL (NEG) 0 UA SPECIFIC GRAVITY (test code = SGU) 1.050 SG 1.001-1.035 A UA BLOOD DIPSTICK (test code = YAAKOV) 3+ mg/DL (NEG) 0 A UA PH DIPSTICK (test code = CHARLIE) 6.0 pH UNITS 4.6-8.0 UA PROTEIN DIPSTICK (test code = PROU) NEGATIVE (0) mg/dL <30 (1+) UA UROBILINIOGEN DIPSTICK (test code = URO) NORMAL (0) mg/dL <2.0 ( 1+) UA NITRITE DIPSTICK (test code = SUNITHA) NEGATIVE (0) SCREEN NEG UA LEUKOCYTE ESTERASE DIPSTICK (test code = LEUU) 500 (3+) Leuk/mc L (NEG) 0 A UA WBC (test code = WBCU) 5-10 #WBC/HPF 0-3 A UA RBC (test code = RBCU) >100 #RBC/HPF 0-3 A UA BACTERIA (test code = BACU) MANY /HPF NONE-FEW A UA SQUAMOUS CELLS (test code = SQU) MODERATE >10 /HPF NONE-SQepi UA MUCUS (test code = MUCU) RARE /LPF NONE - CT ABD PELVIS W/[id number] 01:50:00 Patient Name: JESUS ASCENCIO Unit No: [id number] EXAMS: CPT CODE: [id number] CT ABD PELVIS W/CONT 27161 EXAM: CT ABDOMEN AND PELVIS WITH IV CONTRAST DICTATION LOCATION: H48 HISTORY: Female, 63 years of age with abdominal pain TECHNIQUE: Contrast: Nonionic IV contrast was given. No GI contrast was given. Portal venous phase: Abdomen and pelvis Delayed phase: None Reconstructions: Coronal and sagittal One or more of the following dose reduction techniques were used: Automated exposure control; adjustment of the mA and/or kV according to the patient size; and/or use of iterative reconstruction technique. COMPARISON: CT abdomen and pelvis performed 06/29/2018 FINDINGS: Statements: Exam quality is acceptable. Lower thorax: Unremarkable. Hepatobiliary: Liver is diffusely fatty infiltrated. No hepatic mass or enlargement. Status post cholecystectomy. No biliary dilation. Pancreas: Normal. Spleen: Normal. Adrenals: Normal. Genitourinar y: No solid renal mass, significant cortical thinning, obvious renal stone or hydronephrosis. Ureters are unremarkable. Urinary bladder is unremarka ble. The visualized reproductive organs are unremarkable. Ga strointestinal: No bowel obstruction or perienteric inflammation. The appe ndix is not visualized but there are no pericecal inflammatory changes of appendicitis. A few colonic diverticula are seen in descending colon. Surg ical clips are seen in the proximal sigmoid colon suggesting previous frannie l resection. Vascular: Atherosclerotic calcifications are seen wit hin the aorta and branch vessels. No aneurysm or dissection. Lymphatics: No enlarged lymph nodes by CT size criteria. Bones/S oft Tissues: No acute osseous findings. Small 2 cm fat-containing umbilica l hernia is seen. No other ventral hernias are identified. P eritoneum/Other: No free intraperitoneal air. No free intraperitoneal flui d. [facility] NAME: JESUS ASCENCIO [address] [place] [address] Blvd PHYS: Jamil Wong [place] [address] : 1955 AGE: 63 SEX: F LOC: B.ERS PHONE #: [phone] EXAM DATE: 07/31/2018 STATUS: REG ER FAX #: [phone] RAD #: D/C DT PAGE 1 Signed Report (CONTINUED) Patient Name: JANICE ASCENCIO Unit No: [id number] EXAMS: CPT CODE: [id number] CT ABD PELVIS W/CONT 56166 <Continued> IMPRESSION: 1. No acute findings in abdomen or pelvis. 2. Fatty liver. 3. Diverticulosis coli without evidence for acute diverticulitis. 4. Evidence for previous sigmoid colon resection. 5. Status post cholecystectomy. at 0150 Reported and signed by: Macrina Alvarez MD CC: Jamil Kwan MD Dictated Date/Time: 07/31/2018 (0150) Technologist: Gerson Tello - Agency CTDI: 11.74 DLP: 638.11 Trnscrpt: 07/31/2018 (0150) JacklynW MARIANA Johnson NAME: JANICE ASCENCIO[address] PHYS: Jamil Wong MD [place] [address] : 1955 AGE: 63 SEX: F LOC: B.ERS PHONE #: [phone] EXAM DATE: 07/31/2018 STATUS: REG ER FAX #: [phone] RAD #: D/C DT PAGE 2 Signed Report Patient Name: JESUS ASCENCIO Unit No: [id number] EXAMS: CPT CODE: [id number] CT ABD PELVIS W/CONT 36740 <Continued> Orig Print D/T: S: 07/31/2018 (0153) MARIANA Johnson NAME: JESUS ASCENCIO [address] [place] [address] PHYS: Jamil Wong MD [place] [address] : 1955 AGE: 63 SEX: F LOC: B.ERS PHONE #: [phone] EXAM DATE: 07/31/2018 STATUS: REG ER FAX #: [phone] RAD #: D/C DT PAGE 3 Signed Report - CT ANGIO [id number] 01:45:00 Patient Name: JESUS ASCENCIO Unit No: [id number] EXAMS: CPT CODE: [id number] CT ANGIO CHEST 74953 DICTATION LOCATION: H48 HISTORY: Female, 63 years of age with chest pain, dyspnea EXAM: CT ANGIOGRAPHY OF THE CHEST COMPARISON: Chest x-ray performed today, CT chest with contrast 11/17/2016 TECHNIQUE: Helical axial images were obtained from thoracic inlet to upper abdomen with nonionic IV contrast using the CT angiography protocol. Image post processing with MIP and multiplanar reconstruction were performed at the advanced workstation. One or more of the following dose reduction tech niques were used: Automated exposure control; adjustment of the mA and/or kV according to the patient size; and/or use of iterative reconstruction t echnique. FINDINGS: AORTA: No aneurysm or dissection. PULMONARY ARTERIES: Within normal limits size and well enhanced. There i s no abnormal filling defect to suggest pulmonary embolism. HEART: Heart s ize within normal limits. No significant pericardial effusion. MEDI ASTINUM: No pathologically enlarged lymph nodes by CT criteria. Visualiz ed portions of thyroid gland unremarkable. PLEURA: No pleural effusions. LUNGS: Mild dependent atelectasis is noted. No significant emphysema. No focal infiltrate, consolidation or mass. OTHER: Images through up per abdomen show fatty liver and postcholecystectomy change. IMPRESSION: 1. No pulmonary embolism. 2. No aortic aneurysm or dissection. 3. No acute infiltrate or effusion. Electroni liam Signed by Macrina Alvarez MD on 07/31/2018 at 0145 Reported and signed by: Macrina Alvarez MD CC: Jamil Kwan MD Dictated Date/Time: 07/31/2018 (0145) Ben hnologist: Gerson Tello - Agency CTDI: 13.40 DLP: 550.52 Trnscrpt: (0145) JoannaCLW [facility] [place] NAME: JESUS ASCENCIO [address] [place] [address] Blvd PHYS: Jamil Wong MD [place] [address] : 1955 AGE: 63 SEX: F LOC: B.ERS PHONE #: [phone] EXAM DATE : 07/31/2018 STATUS: PRE ER FAX #: [phone] RAD #: D/C DT PAGE 1 Signed Report Patient Name: JESUS ASCENCIO Unit No: [id number] EXAMS: CPT CODE: [id number] CT ANGIO CHEST 48673 < Continued> Orig Print D/T: S: 07/31/2018 (0148) [facility] NAME: JESUS ASCENCIO [address] [place] [address] PHYS: Jamil [place] [id number] : 1955 AGE: 63 SEX: F LOC: B.ERS PHONE #: [phone] EXAM DATE: 07/31/2018 STATUS: PRE ER FAX #: [phone] RAD #: D/C DT PAGE 2 Signed Report PROCALCITONIN (PCT)2018-07-31 01:37:00* Test Item Value Reference Range Interpretation Comments PROCALCITONIN (PCT) (test code = PROCAL) < 0.05 NG/ML 0.00-0.10 N PROCALCITONIN (PCT) NORMAL RANGE (ADULT) <0.05 NG/ML-normal <0.50 NG/ML-low risk of severe sepsis and/or septic shock >2.00 NG/ML-high risk of severe sepsis and/or septic shcock Concentrations of <0.5 ng/mL do not exclude an infection.Localized infections (without systemic signs) or a systemicinfection in its initial stages (<6 hours) can be associatedwith such low concentrations. It is recommended to retestPCT within 6-24 hours if concentrations <2 NG/ML. B-TYPE NATRIURETIC [id number] 01:30:00* Test Item Value Reference Range Interpretation Comments B-TYPE NATRIURETIC PEPTIDE (test code = BNP) < 30.00 PG/ML 0.00-100 .00 N - XR CHEST 1 [id number] 01:13:00 FAX: Jamil Aguillon MD [phone] [place]: St: PRE Patient Na me: JESUS ASCENCIO Unit No: [id number] EXAMS: CPT CODE: [id number] XR CHEST 1 V 13959 DICTATION LOCATION: H48 HISTORY: Female, 63 years of age with chest pain in area of venous access site EXAM: CHEST X-RAY, ONE VIEW COMPARI SON: 06/29/2018 COMMENT: Frontal view of the chest is provided. Lef t subclavian approach Port-A-Cath is seen with tip projected over SVC. No focal infiltrate, consolidation, mass lesion, or effusion is seen. Cardia c silhouette is within normal limits. No acute bony abnormalities. IMPRESSION: No acute infiltrate and no change since prior study. at 0113 Reported and signed by: Macrina Alvarez MD CC: Jamil Kwan MD Dictated Date /Time: 07/31/2018 (0113)Technologist: Alma Nair Transcribed Date/Time: 07/31/2018 (0113) By: JoannaCLW O rig Print D/T: S: 07/31/2018 (0116) [facility] NAME: JESUS ASCENCIO [address] [place] [address] Bl PHYS: Jamil Wong [place], [place] [address] : 1955 AGE: 63 SEX: F LOC: B.ERS PHONE #: [phone] EXAM DATE: 07/31/2018 STATUS: PRE ER FAX #: [phone] RAD NO: DC Dt: PAGE 1 Signed Report [id number] 01:09:00* Test Item Value Reference Range Interpretation Comments LIPASE (test code = LIP) 72 Unit/L 114-286 L COMPREHENSIVE METABOLIC [id number] 01:09:00* Test Item Value Reference Range Interpretation Comments SODIUM (test code = NA) 137.0 mmol/L 133-144 N POTASSIUM (test code = K) 3.9 mmol/L 3.5-5.1 N CHLORIDE (test code = CL) 104 mmol/L 95-105 N CARBON DIOXIDE (test code = CO2) 27 mmol/L 21-32 N ANION GAP (test code = GAP) 6.0 GAP calc 4.0-15.0 N GLUCOSE (test code = GLU) 102 MG/DL 70-110 N BLOOD UREA NITROGEN (test code = BUN) 14 MG/DL 7-18 N GLOMERULAR FILTRATION RATE (test code = GFR) 78 estGFR >60 The estimated glomerular filtration rate is computed usingpatient race, age, sex, and serum creatinine. If any of theneeded data elements are missing the Laboratory can notcompute an estimation of the glomerular filtration rate.The GFR value units = ml/min/1.73 meter squared. EstimatedGFR values above 60 should be interpreted as >60, not anexact number.--- DRUG DOSAGE ALERT --- Drug dosage adjustments utilize different calculationparameters. CREATININE (test code = CREAT) 0.75 MG/DL 0.55-1.30 N Results may be depressed if patient is takingN-Acetylcysteine (NAC) and Metamizole (Dipyrone). TOTAL PROTEIN (test code = PROT) 8.5 G/DL 6.4-8.2 H ALBUMIN (test code = ALB) 3.5 G/DL 3.4-5.0 N ALBUMIN/GLOBULIN RATIO (test code = A/G) 0.7 RATIO 1.2-2.2 L CALCIUM (test code = CA) 8.6 MG/DL 8.5-10.1 N BILIRUBIN TOTAL (test code = BILT) 0.28 MG/DL 0.00-1.00 N BILIRUBIN DIRECT (test code = BILD) < 0.10 MG/DL 0.00-0.30 N BILIRUBIN INDIRECT (test code = BILIND) 0.28 MG/DL 0.2-1.3 N SGOT/AST (test code = AST) 17 Unit/L 15-37 N SGPT/ALT (test code = ALT) 23 Unit/L 12-78 N ALKALINE PHOSPHATASE TOTAL (test code = ALKP) 90 Unit/L 45-117 N INDEX HEMOLYSIS (test code = HEMINDEX) 1 NORMAL <10 MG Index/DL 1 N ORMAL INDEX ICTERIC (test code = ICTINDEX) 1 NORMAL <2 MG Index/DL 1 NORM AL INDEX LIPEMIA (test code = LIPINDEX) 1 NORMAL <50 MG Index/DL 1 NOR MAL [id number] 01:09:00* Test Item Value Reference Range Interpretation Comments TROPONIN-I (test code = TROPI) < 0.015 NG/ML 0.000-0.045 N An elevated troponin value alone is not sufficient todiagnose a myocardial infarction. Rather, the patient'sclinical presentation (history, physical exam) and ECGshould be used in conjunction with troponin in thediagnostic evaluation of suspected myocardial infarction. Aserial sampling protocol is recommended to facilitate theidentification of temporal changes in troponin levelscharacteristic of [place]. COMPREHENSIVE METABOLIC [id number] 01:05:00* Test Item Value Reference Range Interpretation Comments SODIUM (test code = NA) 137.0 mmol/L 133-144 N POTASSIUM (test code = K) 3.9 mmol/L 3.5-5.1 N CHLORIDE (test code = CL) 104 mmol/L 95-105 N CARBON DIOXIDE (test code = CO2) 27 mmol/L 21-32 N ANION GAP (test code = GAP) 6.0 GAP calc 4.0-15.0 N GLUCOSE (test code = GLU) 102 MG/DL 70-110 N BLOOD UREA NITROGEN (test code = BUN) 14 MG/DL 7-18 N GLOMERULAR FILTRATION RATE (test code = GFR) 78 estGFR >60 The estimated glomerular filtration rate is computed usingpatient race, age, sex, and serum creatinine. If any of theneeded data elements are missing the Laboratory can notcompute an estimation of the glomerular filtration rate.The GFR value units = ml/min/1.73 meter squared. EstimatedGFR values above 60 should be interpreted as >60, not anexact number.--- DRUG DOSAGE ALERT --- Drug dosage adjustments utilize different calculationparameters. CREATININE (test code = CREAT) 0.75 MG/DL 0.55-1.30 N Results may be depressed if patient is takingN-Acetylcysteine (NAC) and Metamizole (Dipyrone). TOTAL PROTEIN (test code = PROT) G/DL 6.4-8.2 ALBUMIN (test code = ALB) 3.5 G/DL 3.4-5.0 N ALBUMIN/GLOBULIN RATIO (test code = A/G) RATIO 1.2-2.2 CALCIUM (test code = CA) 8.6 MG/DL 8.5-10.1 N BILIRUBIN TOTAL (test code = BILT) MG/DL 0.00-1.00 BILIRUBIN DIRECT (test code = BILD) < 0.10 MG/DL 0.00-0.30 N BILIRUBIN INDIRECT (test code = BILIND) MG/DL 0.2-1.3 SGOT/AST (test code = AST) 17 Unit/L 15-37 N SGPT/ALT (test code = ALT) 23 Unit/L 12-78 N ALKALINE PHOSPHATASE TOTAL (test code = ALKP) Unit/L 45-117 INDEX HEMOLYSIS (test code = HEMINDEX) 1 NORMAL <10 MG Index/DL 1 N ORMAL INDEX ICTERIC (test code = ICTINDEX) 1 NORMAL <2 MG Index/DL 1 NORM AL INDEX LIPEMIA (test code = LIPINDEX) 1 NORMAL <50 MG Index/DL 1 NOR MAL [id number]-[id number] 01:05:00* Test Item Value Reference Range Interpretation Comments TROPONIN-I (test code = TROPI) NG/ML 0.000-0.045 CBC W/AUTO [id number] 00:49:00* Test Item Value Reference Range Interpretation Comments WHITE BLOOD CELL (test code = WBC) 9.1 K/mm3 4.1-12.1 N RED BLOOD CELL (test code = RBC) 4.36 M/mm3 3.8-5.5 N HEMOGLOBIN (test code = HGB) 14.0 G/DL 10.6-15.8 N HEMATOCRIT (test code = HCT) 41.3 % 31.8-47.4 N MEAN CELL VOLUME (test code = MCV) 94.7 fL 80.1-101.1 N MEAN CELL HGB (test code = MCH) 32.1 pg 25.3-35.3 N MEAN CELL HGB CONCETRATION (test code = MCHC) 33.9 G/DL 32.7-35. 1 N RED CELL DISTRIBUTION WIDTH (test code = RDW) 13.0 % 12.2-16. 4 N RED CELL DISTRIBUTION WIDTH (test code = RDW-SD) 44.8 fL 36.4- 46.3 N PLATELET COUNT (test code = PLT) 258 K/mm3 155-337 N MEAN PLATELET VOLUME (test code = MPV) 9.8 fL 6.8-11.2 N GRANULOCYTE % (test code = GR%) 49.0 % 37.8-82.6 N IMMATURE GRANULOCYTE % (test code = IG%) 0.3 % 0.0-2.0 N LYMPHOCYTE % (test code = LY%) 39.5 % 14.1-45.4 N MONOCYTE % (test code = MO%) 6.1 % 2.5-11.7 N EOSINOPHIL % (test code = EO%) 4.6 % 0.0-6.2 N BASOPHIL % (test code = BA%) 0.5 % 0.0-2.1 N NUCLEATED RBC % (test code = NRBC%) 0.0 /100WBC% 0.0-1.0 N GRANULOCYTE # (test code = GR#) 4.46 k/mm3 2.0-13.7 N IMMATURE GRANULOCYTE # (test code = IG#) 0.03 K/mm3 0.00-0.03 N LYMPHOCYTE # (test code = LY#) 3.60 K/mm3 0.6-3.8 N MONOCYTE # (test code = MO#) 0.56 K/mm3 0.11-0.59 N EOSINOPHIL # (test code = EO#) 0.42 K/mm3 0.0-0.4 H BASOPHIL # (test code = BA#) 0.05 K/mm3 0.0-0.1 N NUCLEATED RBC # (test code = NRBC#) 0.00 K/mm3 0.0-0.05 N - INJ W FLUOR EVAL [id number] 11:21:00 Name: JESUS ASCENCIO [facility] : 1955 Age/S: 63 / F [address] [facility] Unit #: [id number] Loc: [place] [address] Phys: Earl Rivera MD Acct: [id number] Dis Date: Status: [facility] PHONE #: [phone] Exam Date: 07/23/2018 1150 FAX #: [phone] Reason: PORT CHECK EXAMS: CPT CODE: [id number] INJ W FLUOR EVAL CVAD 52603 Fluoro Time: 48 DAP (Gy m2): 9150 Air Kerma (mGy): 78.91 EXAM: Evaluation of Port-A-Cath with contrast injection; INFORMATION: HISTORY of colon cancer; malfunctioning Port-A-Cath; difficulty accessing Port-A-Cath; TECHNIQUE AND FINDINGS: The patient was placed supine on the procedure table. Fluoroscopic evaluation showed an intact Port-A-Cath with its tip in the SVC. The patient's skin in the left infraclavicular region was prepped and draped in the usual sterile fashion. Local anesthesia was administered and a Flores needle was then inserted into the Port-A-Cath. Contrast material was injected showing intact Port-A-Cath system with unimpaired fl ow into the right atrium. The Flores needle was removed. IM PRESSION: 1. The Port-A-Cath is intact and there is no evidence of occlu caroline. 2. The Port-A-Cath is ready for use. Fluoroscopy Time: 48 sec CAK : 78.91 mGy DAP : 9150 mGy sq cm at 1121 Reported and rico d by: Earl Rivera M.D. CC: Odalys Carr MD Technologist: YOLI JOHNSON RT(R) Trnscb Date/Time: 07/29/2018 (112) [email or web address] Orig Print D/T: S: 07/29/2018 (1124) PAGE 1 Signed Report URINE AND [id number] 22:29:00* Test Item Value Reference Range Interpretation Comments UA Spec Grav (test code = UA Spec Grav) 1.026 1 [facility] [id number] 22:29:00Moderate *ABN*(07/09/18 5:29 PM)[facility] [id number] 22:29:00* Test Item Value Reference Range Interpretation Comments UA pH (test code = UA pH) 6.0 1 5.0-8.0 [facility] [id number] 22:29:00Negative (07/09/18 5:29 PM) [facility] VCCZT5885-39-06 22:29:00Negative *NA*(07/09/18 5:29 PM) [facility] [id number] 22:29:001[facility] BSQFW5694-57-89 22:29:002[facility] FBIHS1631-75-87 22:29:00 Negative (07/09/18 5:29 PM)[facility] [id number] 22:29:00 Yellow *NA*(07/09/18 5:29 PM)[facility] IRKJN6130-59-05 22:29:00 Clear (07/09/18 5:29 PM)[facility] YSDZT6870-99-12 21:13:00 Negative (07/09/18 4:13 PM)[facility] VBBSP3005-64-27 21:13:0097 [facility] QQWEH7082-60-88 21:13:00>182[facility] UPKLC9532-45-63 21:13:00Large *ABN*(07/09/18 4:13 PM)[facility] [id number] 21:13:00Negative (07/09/18 4:13 PM)[facility] JECFU8966-51-53 21:13:00Negative *NA*(07/09/18 4:13 PM)[facility] [id number] 21:13:00* Test Item Value Reference Range Interpretation Comments UA Spec Grav (test code = UA Spec Grav) 1.043 1 [facility] [id number] 21:13:00Marked *ABN*(07/09/18 4:13 PM) [facility] DTTXM7047-42-20 21:13:00* Test Item Value Reference Range Interpretation Comments UA pH (test code = UA pH) 6.0 1 5.0-8.0 [facility]annCARDIAC NPTIXRA7594-97-18 09:02:00<0.02[facility]annCHEM EAOWI4001-34-64 09:02:003.5[facility]annCHEM QDJRS7555-52-20 09:02:002.5 [facility] LNXGY0985-46-68 09:02:000.3[facility]annCHEM PANEL 2018-07-09 09:02:000.1[facility]annCHEM WBJFH6947-41-04 09:02:0083[facility]annCHEM ZZTCO7927-08-60 09:02:000.4[facility]annCHEM KHSUV3026-77-69 09:02:0021[facility]annCHEM CWGGM0413-14-50 09:02:003.0[facility]annCHE[facility] MGDPR8437-82-50 09:02:004.3[facility]annCHEM ROLKO2587-76-95 09:02:00* Test Item Value Reference Range Interpretation Comments A/G Ratio (test code = A/G Ratio) 0.7 1 0.7-1.6 [facility] [id number] 09:02:0024[facility]annCHEM PANEL 2018-07-09 09:02:007.3[facility] RxrinywEZBJMWPLXBZD4390-29-13 09:02:0012.5 [facility] CgfmztiVIDGTNOBDIRF8702-69-40 09:02:0088[facility]annELECTROLYTES 2018-07-09 09:02:0024[facility] KcfxfcdZWSWLKCPQJHZ0105-09-12 09:02:008.4[facility] MjunkhzCHQOIEQEPXXA8121-15-26 09:02:003.5[facility] UsziuhjKQHUSHUQDZMH6539-43-50 09:02:74417Lwqqjwat UhkbnogFHQSFAGCEBQR8601-55-74 09:02:000.74[facility] CFUMXBXKSXDD9194-62-49 09:02:64045Hersbehu NatywadSLLSGEIAIZUL4107-04-85 09:02:42207Pvdjsnzm EtliqlwQFBYCYFCCJQL4540-02-50 09:02:0017[facility] NLCFKATWBB4013-98-36 09:02:000.1[facility] IpdijicZVGHEZLCMS2422-75-07 09:02:000.4 [facility] CrshlnzTAZMWFGJKC1133-39-77 09:02:001.0[facility]annHEMATOLOGY 2018-07-09 09:02:003.7[facility] VhfcqajRUUVCLSSSJ9911-35-40 09:02:002.5[facility] LvezokxURRSDXFWLP3646-86-67 09:02:000.5[facility] OvftdstMWLFCZNQZL1642-99-25 09:02:0035.3[facility] MgjuiqmTSOTOLVFEN9025-19-73 09:02:006.8[facility] OOONTXSKUS6588-80-57 09:02:006.1[facility] QkaojckURMBUGVLNN5380-96-36 09:02:00 50.8[facility] LvwfbroPEKZSORSOY5264-67-66 09:02:008.2[facility]annHEMATOLOGY 2018-07-09 09:02:73609Jytxiawq LlgswikUXTUJMPVTW6420-62-59 09:02:0095.2[facility] PilmaoaWEENWXAZDM8261-92-27 09:02:00* Test Item Value Reference Range Interpretation Comments MCH (test code = MCH) 32.3 pg 27.0-31.0 [facility] GwloeosLYNHQJEHFW6805-73-77 09:02:0037.1[facility]annHEMATOLOGY 2018-07-09 09:02:0012.6[facility] BihlrmoSIPPBLUOFY6938-50-62 09:02:0033.9[facility] XsukgffGPFGXXIPET3526-06-05 09:02:0013.8[facility] GnnunqeWLYBRGGTDA9998-05-69 09:02:007.2[facility] IgwdlbqFAQBRAZRQA2032-89-95 09:02:003.90[facility] CYMKWG4510-59-60 09:02:00* Test Item Value Reference Range Interpretation Comments VLDL (test code = VLDL) 28 1 [facility] LzvhehtDCNHXT2442-05-44 09:02:26383Lppqhytj CsircjvGGNZMV1708-88-07 09:02:83634Hdabrtqu VogajdoPAUXSO6000-57-44 09:02:0050[facility] HermannLIPIDS 2018-07-09 09:02:48416Tshwcqkh VhrjqdrXEIPAM5063-75-54 09:02:00* Test Item Value Reference Range Interpretation Comments CHD Risk (test code = CHD Risk) 3.60 1 3.90-5.80 [facility]ARDIAC YBKPRZP0201-40-98 05:16:00<0.02[facility]annCARDIAC FCUDLYN4479-41-94 19:57:00<0.02[facility]annCARDIAC CQMVAYI0616-24-41 19:57:00<1.0[facility]annCARDIAC ZJUECEG3868-21-93 19:57:0096[facility] CARDIAC BJTPWAW2905-55-94 19:57:009[facility]annCARDIAC HLNGFPJ0952-22-84 19:57:00<1.0[facility]annCHEM GEZLF3649-12-20 19:57:0066[facility] HermannCHEM PEIEY1407-72-24 19:57:0014[facility] HermannCHEM HOPCG5149-15-87 19:57:81089 [facility]annCHEM DGLIS0338-40-38 19:57:0026[facility] HermannCHEM PANEL 2018-07-08 19:57:003.4[facility] HermannCHEM RAABJ5108-87-81 19:57:00864Easzfjoz HermannCHEM PJCFI3104-64-22 19:57:004.9[facility] HermannCHEM UNZZQ4516-19-43 19:57:00* Test Item Value Reference Range Interpretation Comments B/C Ratio (test code = B/C Ratio) 15 1 6-25 [facility]annCHEM BRPQQ5027-34-64 19:57:0091[facility]annCHEM PANEL 2018-07-08 19:57:000.2[facility] HermannCHEM XOPNS3453-76-84 19:57:009.4[facility] HermannCHEM KDFVE6985-38-49 19:57:00* Test Item Value Reference Range Interpretation Comments A/G Ratio (test code = A/G Ratio) 0.7 1 0.7-1.6 [facility]annCHEM UVMZV7120-25-11 19:57:008.3[facility]annCHEM PANEL 2018-07-08 19:57:008.7[facility] HermannCHEM MTXHA9677-31-97 19:57:0019[facility]annCHEM MNXID4054-30-45 19:57:003.4[facility]annCHEM UGNKO5157-42-47 19:57:0026[facility]annCHEM FUHKE9999-34-80 19:57:73923Pfqgpvpq HermannCHEM IFOXY3425-11-16 19:57:000.93[facility] AswscroIZFVZIMFCE8575-08-62 19:57:00* Test Item Value Reference Range Interpretation Comments PTT (test code = PTT) 30.1 s 22.9-35.8 [facility] HbibxuqLCSJCIQLEH7673-04-88 19:57:00* Test Item Value Reference Range Interpretation Comments INR (test code = INR) 1.39 1 0.85-1.17 [facility] XxkalroQEGEBOYXWC9062-24-77 19:57:00* Test Item Value Reference Range Interpretation Comments PT (test code = PT) 16.8 s 12.0-14.7 [facility] KvzessnLCGCUVPGRW2635-25-49 19:57:008.3[facility]annHEMATOLOGY 2018-07-08 19:57:70391Ypgcjgsa KrfxzcvVVALRDEAXZ8432-26-32 19:57:0013.8[facility] EjcvnyxFBWOUKBDOU3224-87-19 19:57:0094.2[facility] YdetoswLYODMUIZHQ1701-82-60 19:57:0013.4[facility] YxstapdASYRSSMONH1866-31-53 19:57:0039.1[facility] EZGRQMFXVT7316-89-77 19:57:0034.2[facility] BqartapGWGBTNDOAK0996-44-74 19:57:00* Test Item Value Reference Range Interpretation Comments MCH (test code = MCH) 32.2 pg 27.0-31.0 [facility] GqhhfefVHNSYCAUPF5557-27-15 19:57:004.15[facility]annHEMATOLOGY 2018-07-08 19:57:0010.0[facility] LlxlguoWITOWGXZYM7613-11-58 19:57:000.5[facility] PbalzazEWMOOJXBCA6744-37-57 19:57:006.2[facility] EsftjqzMUEOJKQVGR0396-17-92 19:57:000.4[facility] GmdpgdbBVVVUARLZG3006-02-44 19:57:002.8[facility] JBRICAZGIA7612-55-84 19:57:000.1[facility] NuivctuOFQQIAERNR8547-63-47 19:57:00 28.2[facility] WmerecpNBWMCIIVUC1558-13-89 19:57:004.2[facility] HermannHEMATOLOGY 2018-07-08 19:57:000.7[facility] AspojaiITKTEFDGAS9399-12-14 19:57:0061.6[facility] NtjdglaREDUJKMVIO3150-69-69 19:57:005.3[facility]- US ABDOMEN LTD 2018-06-30 03:12:00 Name: JESUS ASCENCIO [facility] : 1955 Age/S: 63 / F [address] [facility] Unit #: [id number] Loc: [place] [address] Phys: Yamilet Cross MD Acct: [id number] Dis Date: Status: REG ER PHONE #: [phone] Exam Date: 06/30/2018 0304 FAX #: [phone] Reason: right upper quadrant pain EXAMS: CPT CODE: [id number] ABDOMEN LTD 85313 EXAM: - US ABDOMEN LTD HISTORY: Pain COMPARISON: None available time of interpretation. TECHNIQUE: Grayscale B-mode and color Doppler sonographic images of the right upper quadrant were obtained. FINDINGS: The gallbladder is surgically absent. The common bile duct is within normal limits measuring 5 mm. There is mild increased echogenicity throughout the liver consistent with fatty infiltration. No focal liver lesion is demonstrated. Hepatopedal flow is present in the portal vein. The visualized right kidney, IVC, aorta and pancreas show no significant abnormalities. IMPRESSION: No significant abnormalities. at 0312 Reported and signed by: John Bermudez MD CC: Yamilet Cross MD Technologist: Clair Hernadez [facility] Date/Time: 06/30/2018 (0312) [email or web address] Orig Print D/T: S: 06/30/2018 (0315) Probe: PAGE 1 Signed Report - CT ABD PELVIS W/CONT 2018-06-29 23:59:00 Name: JESUS ASCENCIO [facility] : 1955 Age/S: 63 / F [address] [facility] Unit #: [id number] Loc: [place] [address] Phys: Yamilet Cross MD Acct: [id number] Dis Date: Status: REG ER PHONE #: [phone] Exam Date: 06/29/2018 2336 FAX #: [phone] Reason: ABDOMINAL PAIN, HISTORY OF COLON CANCER EXAMS: CPT CODE: [id number] CT ABD PELVIS W/CONT 83407 EXAM: - CT ABD PELVIS W/CONT HISTORY: Abdominal pain. Colon cancer. TECHNIQUE: Axial tomograms through the abdomen and pelvis were obtained after intravenous contrast. Coronal and sagittal reformatted images are provided. This exam was performed according to our departmental dose-optimization program, which includes automated exposure control, adjustment of the mA and/or kV according to patient size and/or use of iterative reconstruction technique. COMPARISON: October 18, 2017. FINDINGS: The visualized lung bases demonstrate no consolidation or effusion. There is a tiny 4 mm nodule in right lower lung laterally is no significant change compared to prior exam. The liver, spleen, pancreas, adrenal glands and kidneys demonstrate no significant abnormalities. The appendix is not identified. Status post colon surgery. The bowel is not distended. There is no adenopathy or free fluid. There is no acute osseous abnormality. There is no significant change compared to prior exam. IMPRESSION: No significant abnormalities demonstrated. at 5282 Reported and signed by: John Bermudez MD PAGE 1 Signed Report (CONTINUED) Name: JESUS ASCENCIO [facility] : 1955 Age/S: 63 / F [address] [facility] Unit #: [id number] Loc: [place] [address] Phys: Yamilet Cross MD Acct: [id number] Dis Date: Status: REG ER PHONE #: [phone] Exam Date: 06/29/2018 2336 FAX #: [phone] Reason: ABDOMINAL PAIN, HISTORY OF COLON CANCER EXAMS: CPT CODE: [id number] CT ABD PELVIS W/CONT 47443 < Continued> CC: Yamilet Cross MD Technologist:PAULIE MOISE RT(R),CT CTDI: DLP: Trnscb Date/Time: 06/29/2018 (2359) [email or web address] Orig Print D/T: S: 06/30/2018 (0002) PAGE 2 Signed Report URINALYSIS XDFZTMJP7206-60-67 23:57:00* Test Item Value Reference Range Interpretation Comments UA COLOR (test code = COLU) YELLOW YELLOW UA APPEARANCE (test code = APPU) SLIGHT HAZY CLEAR A UA GLUCOSE DIPSTICK (test code = DGLUU) norm mg/dL NEGATIVE UA BILIRUBIN DIPSTICK (test code = BILU) NEGATIVE mg/dL NEGATIVE UA KETONE DIPSTICK (test code = KETU) neg mg/dL NEGATIVE UA SPECIFIC GRAVITY (test code = SGU) 1.010 1.001-1.035 UA BLOOD DIPSTICK (test code = YAAKOV) 250 (4+) Eb/uL NEGATIVE A UA PH DIPSTICK (test code = CHARLIE) 5.0 5.0-8.0 UA PROTEIN DIPSTICK (test code = PROU) 30 (1+) mg/dL Neg-15 A UA UROBILINIOGEN DIPSTICK (test code = URO) norm mg/dL 0.0-0.2 UA NITRITE DIPSTICK (test code = SUNITHA) NEGATIVE NEGATIVE UA LEUKOCYTE ESTERASE DIPSTICK (test code = LEUU) 500 Araceli/uL (3+) u L NEGATIVE A UA WBC (test code = WBCU) 5-10 per HPF 0-5 A UA RBC (test code = RBCU) >100 per HPF 0-5 UA EPITHELIAL CELLS (test code = EPIU) Moderate (5-10/hpf) per HPF Few UA BACTERIA (test code = BACU) MANY per HPF NONE A Urine Source? Clean CatchBASIC METABOLIC [id number] 23:00:00* Test Item Value Reference Range Interpretation Comments SODIUM (test code = NA) 137 mmol/L 135-148 N POTASSIUM (test code = K) 4.0 mmol/L 3.5-5.1 N CHLORIDE (test code = CL) 101 mmol/L 101-109 N CARBON DIOXIDE (test code = CO2) 26.5 mmol/L 21-32 N ANION GAP (test code = GAP) 14 mmol/L 10-20 N GLUCOSE (test code = GLU) 116 mg/dL 74-106 H BLOOD UREA NITROGEN (test code = BUN) 19 mg/dL 3-21 N GLOMERULAR FILTRATION RATE (test code = GFR) > 60 mL/min >=60 Estimated GFR by using Modified MDRD formula.Chronic kidney disease is defined as either kidney damageor GFR <60 mL/min/1.73 m2 for >3 months. CREATININE (test code = CREAT) 0.81 mg/dL 0.55-1.3 N BUN/CREATININE RATIO (test code = BUN/CREA) 23.5 10-20 H CALCIUM (test code = CA) 8.4 mg/dL 8.4-10.2 N HEPATIC FUNCTION [id number] 23:00:00* Test Item Value Reference Range Interpretation Comments TOTAL PROTEIN (test code = PROT) 8.2 g/dL 6.5-8.4 N ALBUMIN (test code = ALB) 3.5 g/dL 3.4-4.8 N GLOBULIN (test code = GLOB) 4.7 g/dL 2.7-4.2 H ALBUMIN/GLOBULIN RATIO (test code = A/G) 0.7 0.75-1.50 L BILIRUBIN TOTAL (test code = BILT) 0.20 mg/dL 0.0-1.0 N BILIRUBIN DIRECT (test code = BILD) 0.00 mg/dL 0.0-0.30 N SGOT/AST (test code = AST) 24 U/L 6-32 N SGPT/ALT (test code = ALT) 28 U/L 12-78 N N ote: Change in REFERENCE RANGE due to new reagent method. ALKALINE PHOSPHATASE TOTAL (test code = ALKP) 91 U/L 38-126 N [id number] 23:00:00* Test Item Value Reference Range Interpretation Comments LIPASE (test code = LIP) 73 U/L 128-270 L [id number] 23:00:00* Test Item Value Reference Range Interpretation Comments MAGNESIUM (test code = MAG) 2.0 mg/dL 1.6-2.3 N CPK-MB [id number] 23:00:00* Test Item Value Reference Range Interpretation Comments CREATINE KINASE (CK) (test code = CK) 90 U/L 26-192 N CKMB (test code = CKMBT) 0.9 ng/mL 0.0-5.0 N RELATIVE % INDEX (test code = REL%) 1.0 % [id number] 23:00:00* Test Item Value Reference Range Interpretation Comments TROPONIN-I (test code = TROPI) <0.015 ng/mL 0-0.045 N B-TYPE NATRIURETIC [id number] 22:45:00* Test Item Value Reference Range Interpretation Comments B-TYPE NATRIURETIC PEPTIDE (test code = BNP) 15.8 pg/mL 0-100 N PROTHROMBIN [id number] 22:37:00* Test Item Value Reference Range Interpretation Comments PROTHROMBIN TIME PATIENT (test code = PTP) 14.0 seconds 9.0-13.0 H INTERNATIONAL NORMAL RATIO (test code = INR) 1.4 0.8-1.2 H The therapeutic range for oral anticoagulant therapy formost indications is an international normalized ratio (INR)of between 2.0 and 3.0. The recommended therapeutic INRrange for various clinical situations is listed below: Clinical Situation INR range Pulmonary e mbolism treatment (2.0-3.0)Venous thrombosis treatmentVenous thrombosis prophylaxis (high risk surgery)Prevention of systemic embolism from: Acute myocardial infarction Valvular heart disease Atrial fibrillation Mechanical prosthetic heart valves (2.5-3.5) IS PATIENT ON ANTICOAGULANTS? NBASIC METABOLIC [id number] 22:35:00* Test Item Value Reference Range Interpretation Comments SODIUM (test code = NA) 137 mmol/L 135-148 N POTASSIUM (test code = K) 4.0 mmol/L 3.5-5.1 N CHLORIDE (test code = CL) 101 mmol/L 101-109 N CARBON DIOXIDE (test code = CO2) 26.5 mmol/L 21-32 N ANION GAP (test code = GAP) 14 mmol/L 10-20 N GLUCOSE (test code = GLU) 116 mg/dL 74-106 H BLOOD UREA NITROGEN (test code = BUN) 19 mg/dL 3-21 N GLOMERULAR FILTRATION RATE (test code = GFR) > 60 mL/min >=60 Estimated GFR by using Modified MDRD formula.Chronic kidney disease is defined as either kidney damageor GFR <60 mL/min/1.73 m2 for >3 months. CREATININE (test code = CREAT) 0.81 mg/dL 0.55-1.3 N BUN/CREATININE RATIO (test code = BUN/CREA) 23.5 10-20 H CALCIUM (test code = CA) 8.4 mg/dL 8.4-10.2 N HEPATIC FUNCTION [id number] 22:35:00* Test Item Value Reference Range Interpretation Comments TOTAL PROTEIN (test code = PROT) gram/dL 6.4-8.2 ALBUMIN (test code = ALB) g/dL 3.4-5.0 GLOBULIN (test code = GLOB) g/dL 2.7-4.2 ALBUMIN/GLOBULIN RATIO (test code = A/G) 0.75-1.50 BILIRUBIN TOTAL (test code = BILT) mg/dL 0.2-1.2 BILIRUBIN DIRECT (test code = BILD) mg/dL 0.0-0.20 SGOT/AST (test code = AST) IUnit/L 15-37 SGPT/ALT (test code = ALT) U/L 10-69 ALKALINE PHOSPHATASE TOTAL (test code = ALKP) IUnit/L 45-117 [id number] 22:35:00* Test Item Value Reference Range Interpretation Comments LIPASE (test code = LIP) Unit/L 144-286 [id number] 22:35:00* Test Item Value Reference Range Interpretation Comments MAGNESIUM (test code = MAG) mg/dL 1.8-2.4 CPK-MB [id number] 22:35:00* Test Item Value Reference Range Interpretation Comments CREATINE KINASE (CK) (test code = CK) IUnit/L 26-208 CKMB (test code = CKMBT) ng/mL 0-6.0 RELATIVE % INDEX (test code = REL%) % [id number] 22:35:00* Test Item Value Reference Range Interpretation Comments TROPONIN-I (test code = TROPI) ng/mL 0-0.045 CBC W/O [id number] 22:23:00* Test Item Value Reference Range Interpretation Comments WHITE BLOOD CELL (test code = WBC) 9.5 K/mm3 4.5-12.5 N RED BLOOD CELL (test code = RBC) 4.55 mill/mm3 3.7-5.2 N HEMOGLOBIN (test code = HGB) 14.4 gram/dL 11.5-15.5 N HEMATOCRIT (test code = HCT) 42.6 % 36.0-46.0 N MEAN CELL VOLUME (test code = MCV) 93.6 fL 80-98 N MEAN CELL HGB (test code = MCH) 31.6 picogram 27.0-33.0 N MEAN CELL HGB CONCETRATION (test code = MCHC) 33.8 gram/dL 33.0-36. 0 N RED CELL DISTRIBUTION WIDTH (test code = RDW) 13.1 % 11.6-16. 2 N RED CELL DISTRIBUTION WIDTH SD (test code = RDW-SD) 46.0 fL 37 .0-51.0 N PLATELET COUNT (test code = PLT) 241 K/mm3 150-450 N MEAN PLATELET VOLUME (test code = MPV) 9.8 fL 6.7-11.0 N - XR CHEST 1 [id number] 21:47:00 Name: JESUS ASCENCIO [facility] : 1955 Age/S:63 /F [address] [facility] Unit#:[id number] Loc: [place] [address] Phys: Yamilet Cross MD Dis Date: PHONE #: [phone] Status: REG ER FAX #: [phone] Exam Date: 06/29/2018 Reason: CHEST PAIN EXAMS: CPT CODE: [id number] XR CHEST 1 V 92932 HISTORY: Chest pain. COMPARISON: October 18, 2017. No acute infiltrates, effusion or congestion is noted. Left Port-A-Cath is unchanged. Suboptimal inspiration. The cardiac and mediastinal silhouette are within normal limits. IMPRESSION: No acute infiltrates, effusion or congestion. at 2147 Reported and signed by: Maciej Felix M.D. CC: Yamilet Cross MD Technologist: PAULIE MOISE RT(R),CT Trnscrpt Data: 06/29/2018 (2146) t.SDR.TH4 Orig Print D/T: S: 06/29/2018 (2149) PAGE 1 Signed R eport TISSUE [id number] 10:15:00Surgical Pathology Report Case: [id number] Authorizing Provider: Amrik Dale MD Collected: 06/03/2018 1533 Ordering Location: [facility] Received: 06/04/2018 0903 Pathologist: Nanci Nassar MD Specimens: A) - Antrum, bx B) - Stomach, Body, bx C) - Esophagus, irregular z line bx A. STOMACH, ANTRUM, BIOPSY- NON- SPECIFIC REACTIVE CHANGES- NEGATIVE FOR ACTIVE INFLAMMATION, METAPLASIA OR D YSPLASIA- WARTHIN STARRY STAIN NEGATIVE FOR HELICOBACTER PYLORI ORGANISMSB. S TOMACH, BODY, BIOPSY- OXYNTIC MUCOSA WITH NO DIAGNOSTIC ABNORMALITY- WARTH IN STARRY STAIN NEGATIVE FOR HELICOBACTER PYLORI ORGANISMSC. ESOPHAGUS, BIOPSY- REFLUX ESOPHAGITIS- GASTRIC COLUMNAR MUCOSA WITH CHRONIC ACTIVE INFLAMMATI ON AND MUCOSAL EROSION- NEGATIVE FOR INTESTINAL METAPLASIA OR DYSPLASIA Signing Pathologist Direct Phone Line: [phone] signed by Nanci Brown i, MD on 06/05/2018 at 10:15 [id number] X 3, [id number] X 2Hematemesis. Pr ocedure upper endoscopy A. Antrum biopsy. B. Stomach body biopsy. C. Irregular Z -line biopsyThe instrument, containers, paperwork, and cassettes all read [id number].Received in formalin labeled with the patient's name (Sonu) and medical rec ord number.Specimen A: Received in formalin labeled as "antrum" are two tissues 2 x 2 x 1 and 3 x 2 x 1 mm, all in cassette A1.Specimen B: Received in formalin labeled as "stomach body" are two tissues 2 x 2 x 1 and 4 x 1 x 1 mm, all submit shira in cassette B1.Specimen C: Received in formalin labeled as "esophagus" is on e tissue 2 x 2 x 1 mm, all in cassette C1. JF/ew The interpretation of this case included the use of immunohistochemistry or special stains. Immunohistochemistr y technical testing was performed at [facility], Pathology Laboratory where it was developed and its performance characteristics were dete rmined. It has not been cleared or approved by the U.S. Food and Drug Administra tion. The FDA has determined that such clearance or approval is not necessary. T he test is used for clinical purposes. It should not be regarded as investigatio nal or for research. This laboratory is certified under the Clinical Laboratory Improvement Amendments of 1988 (CLIA-88) as qualified to perform high complexity clinical laboratory testing.POCT-GLUCOSE [id number] 17:16:00* Test Item Value Reference Range Interpretation Comments POC-GLUCOSE METER (BEAKER) (test code = 1538) 97 mg/dL 70-110 TESTED AT [facility] [address] [facility] [address] POCT-GLUCOSE [id number] 12:09:00* Test Item Value Reference Range Interpretation Comments POC-GLUCOSE METER (BEAKER) (test code = 1538) 106 mg/dL 70-110 TESTED AT [facility] [address] [facility] [address] POCT-GLUCOSE [id number] 05:36:00* Test Item Value Reference Range Interpretation Comments POC-GLUCOSE METER (BEAKER) (test code = 1538) 88 mg/dL 70-110 TESTED AT [facility] [address] [facility] [address] PROTHROMBIN [id number] 03:39:00* Test Item Value Reference Range Interpretation Comments PROTIME (BEAKER) (test code = 759) 18.3 seconds 11.8-14.4 H INR (BEAKER) (test code = 370) 1.5 1.2-1.5 RECOMMENDED COUMADIN/WARFARIN INR THERAPY RANGESSTANDARD DOSE: 2.0 - 3.0 Inclu maria l: PROPHYLAXIS for venous thrombosis, systemic embolization; TREATMENT for benigno ous thrombosis and/or pulmonary embolus.HIGH RISK: Target INR is 2.5-3.5 for pat ients with mechanical heart valves.CBC W/PLT COUNT & AUTO [id number] 03:36:00* Test Item Value Reference Range Interpretation Comments WHITE BLOOD CELL COUNT (BEAKER) (test code = 775) 6.4 K/ L 4.0- 10.0 RED BLOOD CELL COUNT (BEAKER) (test code = 761) 3.73 M/ L 4.00-5 .00 L HEMOGLOBIN (BEAKER) (test code = 410) 11.9 GM/DL 12.0-15.5 L HEMATOCRIT (BEAKER) (test code = 411) 35.6 % 36.0-46.0 L MEAN CORPUSCULAR VOLUME (BEAKER) (test code = 753) 95.4 fL 82. 0-99.0 MEAN CORPUSCULAR HEMOGLOBIN (BEAKER) (test code = 751) 31.9 pg 27.0-33.0 MEAN CORPUSCULAR HEMOGLOBIN CONC (BEAKER) (test code = 752) 33.4 GM/DL 32.0-36.0 RED CELL DISTRIBUTION WIDTH (BEAKER) (test code = 412) 13.2 % 12.0-15.0 PLATELET COUNT (BEAKER) (test code = 756) 229 K/CU MM 150-430 MEAN PLATELET VOLUME (BEAKER) (test code = 754) 10.0 fL 6.0-11 .5 MPV- Approximately 20% positive bias due to method change. NUCLEATED RED BLOOD CELLS (BEAKER) (test code = 413) 0 /100 WBC 0 -0 NEUTROPHILS RELATIVE PERCENT (BEAKER) (test code = 429) 51 % LYMPHOCYTES RELATIVE PERCENT (BEAKER) (test code = 430) 34 % MONOCYTES RELATIVE PERCENT (BEAKER) (test code = 431) 8 % EOSINOPHILS RELATIVE PERCENT (BEAKER) (test code = 432) 7 % BASOPHILS RELATIVE PERCENT (BEAKER) (test code = 437) 1 % NEUTROPHILS ABSOLUTE COUNT (BEAKER) (test code = 670) 3.29 K/ L 1.80-8.00 LYMPHOCYTES ABSOLUTE COUNT (BEAKER) (test code = 414) 2.15 K/ L 1.48-4.50 MONOCYTES ABSOLUTE COUNT (BEAKER) (test code = 415) 0.52 K/ L 0. 00-1.30 EOSINOPHILS ABSOLUTE COUNT (BEAKER) (test code = 416) 0.42 K/ L 0.00-0.50 BASOPHILS ABSOLUTE COUNT (BEAKER) (test code = 417) 0.03 K/ L 0. 00-0.20 IMMATURE GRANULOCYTES-RELATIVE PERCENT (BEAKER) (test code = 2801) 0 % 0-0 POCT-GLUCOSE [id number] 21:17:00* Test Item Value Reference Range Interpretation Comments POC-GLUCOSE METER (BEAKER) (test code = 1538) 145 mg/dL 70-110 H TESTED AT [facility] [id number] [place] [address] POCT-GLUCOSE [id number] 16:29:00* Test Item Value Reference Range Interpretation Comments POC-GLUCOSE METER (BEAKER) (test code = 1538) 99 mg/dL 70-110 TESTED AT [facility] [address] [facility] [address] POCT-GLUCOSE [id number] 12:06:00* Test Item Value Reference Range Interpretation Comments POC-GLUCOSE METER (BEAKER) (test code = 1538) 193 mg/dL 70-110 H TESTED AT [facility] [id number] [place] [address] BASIC METABOLIC [id number] 05:53:00* Test Item Value Reference Range Interpretation Comments SODIUM (BEAKER) (test code = 381) 138 meq/L 135-148 POTASSIUM (BEAKER) (test code = 379) 3.8 meq/L 3.5-5.5 CHLORIDE (BEAKER) (test code = 382) 105 meq/L 98-106 CO2 (BEAKER) (test code = 355) 24 meq/L 20-31 BLOOD UREA NITROGEN (BEAKER) (test code = 354) 5 mg/dL 10-26 L CREATININE (BEAKER) (test code = 358) 0.68 mg/dL 0.50-1.20 GLUCOSE RANDOM (BEAKER) (test code = 652) 93 mg/dL 70-110 CALCIUM (BEAKER) (test code = 697) 8.5 mg/dL 8.5-10.5 EGFR (BEAKER) (test code = 1092) mL/min/1.73 sq m INSUFFICIENT CLINICAL DATA TO CALCULATE ESTIMATED GFR. PROTHROMBIN [id number] 05:44:00* Test Item Value Reference Range Interpretation Comments PROTIME (BEAKER) (test code = 759) 22.1 seconds 11.8-14.4 H INR (BEAKER) (test code = 370) 2.0 1.2-1.5 H RECOMMENDED COUMADIN/WARFARIN INR THERAPY RANGESSTANDARD DOSE: 2.0 - 3.0 Inclu maria l: PROPHYLAXIS for venous thrombosis, systemic embolization; TREATMENT for benigno ous thrombosis and/or pulmonary embolus.HIGH RISK: Target INR is 2.5-3.5 for pat ients with mechanical heart valves.CBC W/PLT COUNT & AUTO [id number] 05:35:00* Test Item Value Reference Range Interpretation Comments WHITE BLOOD CELL COUNT (BEAKER) (test code = 775) 6.4 K/ L 4.0- 10.0 RED BLOOD CELL COUNT (BEAKER) (test code = 761) 3.92 M/ L 4.00-5 .00 L HEMOGLOBIN (BEAKER) (test code = 410) 12.3 GM/DL 12.0-15.5 HEMATOCRIT (BEAKER) (test code = 411) 37.3 % 36.0-46.0 MEAN CORPUSCULAR VOLUME (BEAKER) (test code = 753) 95.2 fL 82. 0-99.0 MEAN CORPUSCULAR HEMOGLOBIN (BEAKER) (test code = 751) 31.4 pg 27.0-33.0 MEAN CORPUSCULAR HEMOGLOBIN CONC (BEAKER) (test code = 752) 33.0 GM/DL 32.0-36.0 RED CELL DISTRIBUTION WIDTH (BEAKER) (test code = 412) 13.1 % 12.0-15.0 PLATELET COUNT (BEAKER) (test code = 756) 227 K/CU MM 150-430 MEAN PLATELET VOLUME (BEAKER) (test code = 754) 9.6 fL 6.0-11 .5 MPV- Approximately 20% positive bias due to method change. NUCLEATED RED BLOOD CELLS (BEAKER) (test code = 413) 0 /100 WBC 0 -0 NEUTROPHILS RELATIVE PERCENT (BEAKER) (test code = 429) 55 % LYMPHOCYTES RELATIVE PERCENT (BEAKER) (test code = 430) 32 % MONOCYTES RELATIVE PERCENT (BEAKER) (test code = 431) 7 % EOSINOPHILS RELATIVE PERCENT (BEAKER) (test code = 432) 6 % BASOPHILS RELATIVE PERCENT (BEAKER) (test code = 437) 0 % NEUTROPHILS ABSOLUTE COUNT (BEAKER) (test code = 670) 3.53 K/ L 1.80-8.00 LYMPHOCYTES ABSOLUTE COUNT (BEAKER) (test code = 414) 2.02 K/ L 1.48-4.50 MONOCYTES ABSOLUTE COUNT (BEAKER) (test code = 415) 0.42 K/ L 0. 00-1.30 EOSINOPHILS ABSOLUTE COUNT (BEAKER) (test code = 416) 0.36 K/ L 0.00-0.50 BASOPHILS ABSOLUTE COUNT (BEAKER) (test code = 417) 0.02 K/ L 0. 00-0.20 IMMATURE GRANULOCYTES-RELATIVE PERCENT (BEAKER) (test code = 2801) 0 % 0-0 POCT-GLUCOSE [id number] 20:44:00* Test Item Value Reference Range Interpretation Comments POC-GLUCOSE METER (BEAKER) (test code = 1538) 123 mg/dL 70-110 H TESTED AT [facility] [address] [facility] [address] POCT-GLUCOSE [id number] 16:40:00* Test Item Value Reference Range Interpretation Comments POC-GLUCOSE METER (BEAKER) (test code = 1538) 167 mg/dL 70-110 H TESTED AT [facility] [address] [facility] [address] POCT-GLUCOSE [id number] 12:13:00* Test Item Value Reference Range Interpretation Comments POC-GLUCOSE METER (BEAKER) (test code = 1538) 135 mg/dL 70-110 H TESTED AT [facility] [address] [facility] [address] CBC W/PLT COUNT & AUTO [id number] 09:34:00* Test Item Value Reference Range Interpretation Comments WHITE BLOOD CELL COUNT (BEAKER) (test code = 775) 7.6 K/ L 4.0- 10.0 RED BLOOD CELL COUNT (BEAKER) (test code = 761) 3.89 M/ L 4.00-5 .00 L HEMOGLOBIN (BEAKER) (test code = 410) 12.5 GM/DL 12.0-15.5 HEMATOCRIT (BEAKER) (test code = 411) 36.8 % 36.0-46.0 MEAN CORPUSCULAR VOLUME (BEAKER) (test code = 753) 94.6 fL 82. 0-99.0 MEAN CORPUSCULAR HEMOGLOBIN (BEAKER) (test code = 751) 32.1 pg 27.0-33.0 MEAN CORPUSCULAR HEMOGLOBIN CONC (BEAKER) (test code = 752) 34.0 GM/DL 32.0-36.0 RED CELL DISTRIBUTION WIDTH (BEAKER) (test code = 412) 13.2 % 12.0-15.0 PLATELET COUNT (BEAKER) (test code = 756) 230 K/CU MM 150-430 MEAN PLATELET VOLUME (BEAKER) (test code = 754) 9.9 fL 6.0-11 .5 MPV- Approximately 20% positive bias due to method change. NUCLEATED RED BLOOD CELLS (BEAKER) (test code = 413) 0 /100 WBC 0 -0 NEUTROPHILS RELATIVE PERCENT (BEAKER) (test code = 429) 63 % LYMPHOCYTES RELATIVE PERCENT (BEAKER) (test code = 430) 26 % MONOCYTES RELATIVE PERCENT (BEAKER) (test code = 431) 6 % EOSINOPHILS RELATIVE PERCENT (BEAKER) (test code = 432) 4 % BASOPHILS RELATIVE PERCENT (BEAKER) (test code = 437) 1 % NEUTROPHILS ABSOLUTE COUNT (BEAKER) (test code = 670) 4.82 K/ L 1.80-8.00 LYMPHOCYTES ABSOLUTE COUNT (BEAKER) (test code = 414) 1.98 K/ L 1.48-4.50 MONOCYTES ABSOLUTE COUNT (BEAKER) (test code = 415) 0.45 K/ L 0. 00-1.30 EOSINOPHILS ABSOLUTE COUNT (BEAKER) (test code = 416) 0.33 K/ L 0.00-0.50 BASOPHILS ABSOLUTE COUNT (BEAKER) (test code = 417) 0.04 K/ L 0. 00-0.20 IMMATURE GRANULOCYTES-RELATIVE PERCENT (BEAKER) (test code = 2801) 0 % 0-0 POCT-GLUCOSE [id number] 05:36:00* Test Item Value Reference Range Interpretation Comments POC-GLUCOSE METER (BEAKER) (test code = 1538) 95 mg/dL 70-110 TESTED AT [facility] [address] [place] [id number] PROTHROMBIN [id number] 05:14:00* Test Item Value Reference Range Interpretation Comments PROTIME (BEAKER) (test code = 759) 28.1 seconds 11.8-14.4 H INR (BEAKER) (test code = 370) 2.7 1.2-1.5 H RECOMMENDED COUMADIN/WARFARIN INR THERAPY RANGESSTANDARD DOSE: 2.0 - 3.0 Inclu maria l: PROPHYLAXIS for venous thrombosis, systemic embolization; TREATMENT for benigno ous thrombosis and/or pulmonary embolus.HIGH RISK: Target INR is 2.5-3.5 for pat ients with mechanical heart valves.POCT-GLUCOSE [id number] 20:34:00* Test Item Value Reference Range Interpretation Comments POC-GLUCOSE METER (BEAKER) (test code = 1538) 118 mg/dL 70-110 H TESTED AT [facility] [address] [facility] [address] POCT-GLUCOSE [id number] 16:54:00* Test Item Value Reference Range Interpretation Comments POC-GLUCOSE METER (BEAKER) (test code = 1538) 88 mg/dL 70-110 TESTED AT [facility] [address] [facility] [address] POCT-GLUCOSE [id number] 11:30:00* Test Item Value Reference Range Interpretation Comments POC-GLUCOSE METER (BEAKER) (test code = 1538) 118 mg/dL 70-110 H TESTED AT [facility] [address] [facility] [address] POCT-GLUCOSE [id number] 05:26:00* Test Item Value Reference Range Interpretation Comments POC-GLUCOSE METER (BEAKER) (test code = 1538) 178 mg/dL 70-110 H TESTED AT [facility] [address] [facility] [address] BASIC METABOLIC [id number] 05:19:00* Test Item Value Reference Range Interpretation Comments SODIUM (BEAKER) (test code = 381) 139 meq/L 135-148 POTASSIUM (BEAKER) (test code = 379) 3.8 meq/L 3.5-5.5 CHLORIDE (BEAKER) (test code = 382) 108 meq/L 98-106 H CO2 (BEAKER) (test code = 355) 24 meq/L 20-31 BLOOD UREA NITROGEN (BEAKER) (test code = 354) 9 mg/dL 10-26 L CREATININE (BEAKER) (test code = 358) 0.67 mg/dL 0.50-1.20 GLUCOSE RANDOM (BEAKER) (test code = 652) 112 mg/dL 70-110 H CALCIUM (BEAKER) (test code = 697) 8.2 mg/dL 8.5-10.5 L EGFR (BEAKER) (test code = 1092) mL/min/1.73 sq m INSUFFICIENT CLINICAL DATA TO CALCULATE ESTIMATED GFR. PROTHROMBIN [id number] 05:04:00* Test Item Value Reference Range Interpretation Comments PROTIME (BEAKER) (test code = 759) 33.0 seconds 11.8-14.4 H INR (BEAKER) (test code = 370) 3.3 1.2-1.5 H RECOMMENDED COUMADIN/WARFARIN INR THERAPY RANGESSTANDARD DOSE: 2.0 - 3.0 Inclu maria l: PROPHYLAXIS for venous thrombosis, systemic embolization; TREATMENT for benigno ous thrombosis and/or pulmonary embolus.HIGH RISK: Target INR is 2.5-3.5 for pat ients with mechanical heart valves.CBC W/PLT COUNT & AUTO [id number] 04:44:00* Test Item Value Reference Range Interpretation Comments WHITE BLOOD CELL COUNT (BEAKER) (test code = 775) 6.5 K/ L 4.0- 10.0 RED BLOOD CELL COUNT (BEAKER) (test code = 761) 3.82 M/ L 4.00-5 .00 L HEMOGLOBIN (BEAKER) (test code = 410) 11.8 GM/DL 12.0-15.5 L HEMATOCRIT (BEAKER) (test code = 411) 36.3 % 36.0-46.0 MEAN CORPUSCULAR VOLUME (BEAKER) (test code = 753) 95.0 fL 82. 0-99.0 MEAN CORPUSCULAR HEMOGLOBIN (BEAKER) (test code = 751) 30.9 pg 27.0-33.0 MEAN CORPUSCULAR HEMOGLOBIN CONC (BEAKER) (test code = 752) 32.5 GM/DL 32.0-36.0 RED CELL DISTRIBUTION WIDTH (BEAKER) (test code = 412) 13.1 % 12.0-15.0 PLATELET COUNT (BEAKER) (test code = 756) 207 K/CU MM 150-430 MEAN PLATELET VOLUME (BEAKER) (test code = 754) 9.9 fL 6.0-11 .5 MPV- Approximately 20% positive bias due to method change. NUCLEATED RED BLOOD CELLS (BEAKER) (test code = 413) 0 /100 WBC 0 -0 NEUTROPHILS RELATIVE PERCENT (BEAKER) (test code = 429) 69 % LYMPHOCYTES RELATIVE PERCENT (BEAKER) (test code = 430) 20 % MONOCYTES RELATIVE PERCENT (BEAKER) (test code = 431) 6 % EOSINOPHILS RELATIVE PERCENT (BEAKER) (test code = 432) 5 % BASOPHILS RELATIVE PERCENT (BEAKER) (test code = 437) 0 % NEUTROPHILS ABSOLUTE COUNT (BEAKER) (test code = 670) 4.48 K/ L 1.80-8.00 LYMPHOCYTES ABSOLUTE COUNT (BEAKER) (test code = 414) 1.28 K/ L 1.48-4.50 L MONOCYTES ABSOLUTE COUNT (BEAKER) (test code = 415) 0.37 K/ L 0. 00-1.30 EOSINOPHILS ABSOLUTE COUNT (BEAKER) (test code = 416) 0.33 K/ L 0.00-0.50 BASOPHILS ABSOLUTE COUNT (BEAKER) (test code = 417) 0.02 K/ L 0. 00-0.20 IMMATURE GRANULOCYTES-RELATIVE PERCENT (BEAKER) (test code = 2801) 0 % 0-0 POCT-GLUCOSE [id number] 21:00:00* Test Item Value Reference Range Interpretation Comments POC-GLUCOSE METER (BEAKER) (test code = 1538) 91 mg/dL 70-110 TESTED AT [facility] [address] [facility] [address] POCT-GLUCOSE [id number] 17:08:00* Test Item Value Reference Range Interpretation Comments POC-GLUCOSE METER (BEAKER) (test code = 1538) 102 mg/dL 70-110 TESTED AT [facility] [address] [facility] [address] POCT-GLUCOSE [id number] 12:00:00* Test Item Value Reference Range Interpretation Comments POC-GLUCOSE METER (BEAKER) (test code = 1538) 98 mg/dL 70-110 TESTED AT [facility] [id number] [facility] [address] BASIC METABOLIC [id number] 05:14:00* Test Item Value Reference Range Interpretation Comments SODIUM (BEAKER) (test code = 381) 141 meq/L 135-148 POTASSIUM (BEAKER) (test code = 379) 3.6 meq/L 3.5-5.5 CHLORIDE (BEAKER) (test code = 382) 110 meq/L 98-106 H CO2 (BEAKER) (test code = 355) 22 meq/L 20-31 BLOOD UREA NITROGEN (BEAKER) (test code = 354) 14 mg/dL 10-26 CREATININE (BEAKER) (test code = 358) 0.66 mg/dL 0.50-1.20 GLUCOSE RANDOM (BEAKER) (test code = 652) 124 mg/dL 70-110 H CALCIUM (BEAKER) (test code = 697) 8.2 mg/dL 8.5-10.5 L EGFR (BEAKER) (test code = 1092) mL/min/1.73 sq m INSUFFICIENT CLINICAL DATA TO CALCULATE ESTIMATED GFR. BASIC METABOLIC [id number] 01:01:00* Test Item Value Reference Range Interpretation Comments SODIUM (BEAKER) (test code = 381) 137 meq/L 135-148 POTASSIUM (BEAKER) (test code = 379) 3.6 meq/L 3.5-5.5 CHLORIDE (BEAKER) (test code = 382) 106 meq/L 98-106 CO2 (BEAKER) (test code = 355) 24 meq/L 20-31 BLOOD UREA NITROGEN (BEAKER) (test code = 354) 16 mg/dL 10-26 CREATININE (BEAKER) (test code = 358) 0.70 mg/dL 0.50-1.20 GLUCOSE RANDOM (BEAKER) (test code = 652) 118 mg/dL 70-110 H CALCIUM (BEAKER) (test code = 697) 8.9 mg/dL 8.5-10.5 EGFR (BEAKER) (test code = 1092) mL/min/1.73 sq m INSUFFICIENT CLINICAL DATA TO CALCULATE ESTIMATED GFR. [id number] 01:00:00* Test Item Value Reference Range Interpretation Comments LIPASE (BEAKER) (test code = 749) 22 U/L 8-78 HEPATIC FUNCTION [id number] 01:00:00* Test Item Value Reference Range Interpretation Comments TOTAL PROTEIN (BEAKER) (test code = 770) 7.2 gm/dL 6.0-8.5 ALBUMIN (BEAKER) (test code = 1145) 3.8 g/dL 3.5-5.0 BILIRUBIN TOTAL (BEAKER) (test code = 377) 0.2 mg/dL 0.1-1.3 BILIRUBIN DIRECT (BEAKER) (test code = 706) 0.1 mg/dL 0.0-0.5 ALKALINE PHOSPHATASE (BEAKER) (test code = 346) 81 U/L 30-115 AST (SGOT) (BEAKER) (test code = 353) 16 U/L 5-40 ALT (SGPT) (BEAKER) (test code = 347) 11 U/L 6-50 LACTIC ACID, [id number] 00:53:00* Test Item Value Reference Range Interpretation Comments LACTATE BLOOD VENOUS (2) (BEAKER) (test code = 2872) 0.8 mmol/L 0 .5-2.2 Specimen slightly hemolyzed [id number] 00:46:00* Test Item Value Reference Range Interpretation Comments PROTIME (BEAKER) (test code = 759) 37.8 seconds 11.8-14.4 H INR (BEAKER) (test code = 370) 4.0 1.2-1.5 H PARTIAL THROMBOPLASTIN TIME (BEAKER) (test code = 760) 56.5 seconds 23.2-36.1 H RECOMMENDED COUMADIN/WARFARIN INR THERAPY RANGESSTANDARD DOSE: 2.0 - 3.0 Inclu maria l: PROPHYLAXIS for venous thrombosis, systemic embolization; TREATMENT for benigno ous thrombosis and/or pulmonary embolus.HIGH RISK: Target INR is 2.5-3.5 for pat ients with mechanical heart valves.CBC W/PLT COUNT & AUTO [id number] 00:21:00* Test Item Value Reference Range Interpretation Comments WHITE BLOOD CELL COUNT (BEAKER) (test code = 775) 9.2 K/ L 4.0- 10.0 RED BLOOD CELL COUNT (BEAKER) (test code = 761) 4.01 M/ L 4.00-5 .00 HEMOGLOBIN (BEAKER) (test code = 410) 12.5 GM/DL 12.0-15.5 HEMATOCRIT (BEAKER) (test code = 411) 37.8 % 36.0-46.0 MEAN CORPUSCULAR VOLUME (BEAKER) (test code = 753) 94.3 fL 82. 0-99.0 MEAN CORPUSCULAR HEMOGLOBIN (BEAKER) (test code = 751) 31.2 pg 27.0-33.0 MEAN CORPUSCULAR HEMOGLOBIN CONC (BEAKER) (test code = 752) 33.1 GM/DL 32.0-36.0 RED CELL DISTRIBUTION WIDTH (BEAKER) (test code = 412) 13.2 % 12.0-15.0 PLATELET COUNT (BEAKER) (test code = 756) 244 K/CU MM 150-430 MEAN PLATELET VOLUME (BEAKER) (test code = 754) 10.0 fL 6.0-11 .5 MPV- Approximately 20% positive bias due to method change. NUCLEATED RED BLOOD CELLS (BEAKER) (test code = 413) 0 /100 WBC 0 -0 NEUTROPHILS RELATIVE PERCENT (BEAKER) (test code = 429) 51 % LYMPHOCYTES RELATIVE PERCENT (BEAKER) (test code = 430) 39 % MONOCYTES RELATIVE PERCENT (BEAKER) (test code = 431) 5 % EOSINOPHILS RELATIVE PERCENT (BEAKER) (test code = 432) 4 % BASOPHILS RELATIVE PERCENT (BEAKER) (test code = 437) 0 % NEUTROPHILS ABSOLUTE COUNT (BEAKER) (test code = 670) 4.73 K/ L 1.80-8.00 LYMPHOCYTES ABSOLUTE COUNT (BEAKER) (test code = 414) 3.56 K/ L 1.48-4.50 MONOCYTES ABSOLUTE COUNT (BEAKER) (test code = 415) 0.50 K/ L 0. 00-1.30 EOSINOPHILS ABSOLUTE COUNT (BEAKER) (test code = 416) 0.38 K/ L 0.00-0.50 BASOPHILS ABSOLUTE COUNT (BEAKER) (test code = 417) 0.03 K/ L 0. 00-0.20 IMMATURE GRANULOCYTES-RELATIVE PERCENT (BEAKER) (test code = 2801) 0 % 0-0 CT, ABDOMEN - PELVIS, RENAL STONE EVAL, WITHOUT IV MPGBOFIE8799-64-36 22:39:00 Reason for exam:->BACK PAINReason for exam:->DYSURIAFINAL REPORT CT abdomen and pelvis without intravenous contrast. INDICATION: BACK PAINDYSURIA COMPARISON: 02/03/2004 TECHNIQUE: Multiple contiguous transaxial images [...] stones or hydronephrosis. There is nonspecific wall thi ckening of the urinary bladder which can be correlated with urinalysis and urine cytology. The uterus is absent. No pelvic masses are seen. There is no free flu id in the pelvis. There is surgical anastomosis at the proximal sigmoid colon. T here is scattered colonic diverticulosis without acute diverticulitis. The appen evangelista is not clearly visualized. There are vascular calcifications. There is no fl uid collection or lymphadenopathy. IMPRESSION:1. No stones, hydronephrosis or hy droureter.2. Nonspecific bladder wall thickening which can be correlated with ur inalysis.3. Colonic diverticulosis.4. Status post cholecystectomy and hysterecto my. Signed: Kevon Price MDReport Verified Date/Time: 05/29/2018 22:39:39 Reading Location: [facility] [id number] [facility] Consult Reading Room ALYSIS W/ REFLEX URINE CULTURE 2018-05-29 22:35:00* Test Item Value Reference Range Interpretation Comments COLOR (BEAKER) (test code = 470) Yellow CLARITY (BEAKER) (test code = 469) Cloudy SPECIFIC GRAVITY UA (BEAKER) (test code = 468) 1.017 1.001-1 .035 PH UA (BEAKER) (test code = 467) 6.0 5.0-8.0 PROTEIN UA (BEAKER) (test code = 464) Negative Negative GLUCOSE UA (BEAKER) (test code = 365) Negative Negative KETONES UA (BEAKER) (test code = 371) Negative Negative BILIRUBIN UA (BEAKER) (test code = 462) Negative Negative BLOOD UA (BEAKER) (test code = 461) Large Negative A NITRITE UA (BEAKER) (test code = 465) Negative Negative LEUKOCYTE ESTERASE UA (BEAKER) (test code = 466) Large Negat capo A UROBILINOGEN UA (BEAKER) (test code = 463) < mg/dL 0.2-1.0 RBC UA (BEAKER) (test code = 519) 583 /HPF WBC UA (BEAKER) (test code = 520) 15 /HPF BACTERIA (BEAKER) (test code = 517) Occasional MUCUS (BEAKER) (test code = 1574) Rare SQUAMOUS EPITHELIAL (BEAKER) (test code = 516) 6 /HPF SOURCE(BEAKER) (test code = 2795) Stool Dpzifbuxhrak9566-27-46 06:17:00* Test Item Value Reference Range Interpretation Comments Stool Calprotectin (test code = 93524-8) <16 0-120 Results verified by repeat testingConcentration Interpretation Follow- Up<16 - 50 ug/g Normal None>50 -120 ug/g Borderline Re- evaluate in 4-6 weeks >120 ug/g Abnormal Repeat as clinically indicatedPerformed at: [facility] [id number] Director: Veena Martell MD, Phone: [phone] Baptist Hospitaltool Obthxceugmhc8470-86-06 06:17:00* Test Item Value Reference Range Interpretation Comments Stool Calprotectin (test code = 71678-4) <16 0-120 Results verified by repeat testingConcentration Interpretation Follow- Up<16 - 50 ug/g Normal None>50 -120 ug/g Borderline Re- evaluate in 4-6 weeks >120 ug/g Abnormal Repeat as clinically indicatedPerformed at: [facility] [id number] Director: Veena Martell MD, Phone: [phone] Baptist Hospitaltool Gvezbekmctxb6655-59-47 06:17:00* Test Item Value Reference Range Interpretation Comments Stool Calprotectin (test code = 69486-1) <16 0-120 Results verified by repeat testingConcentration Interpretation Follow- Up<16 - 50 ug/g Normal None>50 -120 ug/g Borderline Re- evaluate in 4-6 weeks >120 ug/g Abnormal Repeat as clinically indicatedPerformed at: [facility] Lab[address] [id number] Director: Veena Martell MD, Phone: [phone] Medical CenterUrine WBC 2018-04-02 08:35:00* Test Item Value Reference Range Interpretation Comments Urine WBC (test code = 5821-4) 0-5 0-5 [facility] CenterU[facility] RHU5060-42-04 08:35:00* Test Item Value Reference Range Interpretation Comments Urine RBC (test code = 49016-1) 0-5 0-5 [facility] CenterU[facility] Tziyjoac5641-43-65 08:35:00* Test Item Value Reference Range Interpretation Comments Urine Bacteria (test code = 89705-5) FEW NONE [facility] CenterUrine Epithelial Nxfdk6806-52-01 08:35:00 * Test Item Value Reference Range Interpretation Comments Urine Epithelial Cells (test code = 52439-6) FEW NONE [facility] CenterU[facility] Zovof1967-92-76 08:04:00* Test Item Value Reference Range Interpretation Comments Urine Color (test code = 5778-6) YELLOW YELLOW [facility] CenterU[facility] Zsbxdpe7070-92-02 08:04:00* Test Item Value Reference Range Interpretation Comments Urine Clarity (test code = 93410-6) SL CLOUDY CLEAR [facility] CenterUrine Specific Bdgubrt3749-45-23 08:04:00 * Test Item Value Reference Range Interpretation Comments Urine Specific [place] (test code = 5811-5) 1.025 1.010-1.02 5 [facility] CenterUrine mN3081-28-28 08:04:00* Test Item Value Reference Range Interpretation Comments Urine pH (test code = 89505-9) 6 5-7 [facility] CenterU[facility] Leukocyte Eggdiepg4204-07-48 08:04:00* Test Item Value Reference Range Interpretation Comments Urine Leukocyte Esterase (test code = 5799-2) NEGATIVE NEGATIVE [facility] CenterU[facility] Enbicdq1717-67-81 08:04:00* Test Item Value Reference Range Interpretation Comments Urine Nitrite (test code = 93492-3) NEGATIVE NEGATIVE [facility] CenterU[facility] Cgdddym4914-71-19 08:04:00* Test Item Value Reference Range Interpretation Comments Urine Protein (test code = 5804-0) NEGATIVE NEGATIVE [facility] CenterUrine Glucose (UA)2018-04-02 08:04:00* Test Item Value Reference Range Interpretation Comments Urine Glucose (UA) (test code = 2349-9) NEGATIVE NEGATIVE [facility] CenterUrine Qjwdybn1501-69-60 08:04:00* Test Item Value Reference Range Interpretation Comments Urine Ketones (test code = 43456-6) 2+ NEGATIVE H [facility] Oegcsbxbhuzl0175-07-49 08:04:00* Test Item Value Reference Range Interpretation Comments Urine Urobilinogen (test code = 76003-2) 0.2 0.2-1 [facility] CenterU[facility] Attjumhmy5934-83-57 08:04:00* Test Item Value Reference Range Interpretation Comments Urine Bilirubin (test code = 1978-6) NEGATIVE NEGATIVE [facility] CenterU[facility] Gcxgk9974-66-38 08:04:00* Test Item Value Reference Range Interpretation Comments Urine Blood (test code = 24813-0) 1+ NEGATIVE H [facility] CenterBedside Yjsrvkx0994-27-99 21:54:00* Test Item Value Reference Range Interpretation Comments Bedside Glucose (test code = 84359-1) 102 70-120 Meter ID: [id number] Baptist Hospitalodium Level 2018-04-01 06:25:00* Test Item Value Reference Range Interpretation Comments Sodium Level (test code = 2951-2) 136 136-145 [facility] CenterPotassium Rknog2847-50-82 06:25:00* Test Item Value Reference Range Interpretation Comments Potassium Level (test code = 2823-3) 3.7 3.5-5.1 [facility] CenterChloride Yiddy1476-44-13 06:25:00* Test Item Value Reference Range Interpretation Comments Chloride Level (test code = 2075-0) 106 98-107 [facility] CenterCarbon Dioxide Kpzhx2762-88-12 06:25:00* Test Item Value Reference Range Interpretation Comments Carbon Dioxide Level (test code = 2028-9) 22 22-29 [facility] CenterAnion Tep8425-16-96 06:25:00* Test Item Value Reference Range Interpretation Comments Anion Gap (test code = 38943-6) 11.7 8-16 [facility] CenterBlood Urea Gnczrzlv2337-02-99 06:25:00* Test Item Value Reference Range Interpretation Comments Blood Urea Nitrogen (test code = 3094-0) 9 7-26 [facility] CenterCreatinine2019-02-11 06:25:00* Test Item Value Reference Range Interpretation Comments Creatinine (test code = 2160-0) 0.69 0.57-1.11 [facility] CenterBUN/Creatinine Urkrv9104-75-25 06:25:00* Test Item Value Reference Range Interpretation Comments BUN/Creatinine Ratio (test code = 3097-3) 13 6- [facility] CenterEstimat Glomerular Filtration Rate 2018-04-01 06:25:00* Test Item Value Reference Range Interpretation Comments Estimat Glomerular Filtration Rate (test code = 396969202) > 60 >60 Ranges were taken from the National Kidney Disease Education Program and the [facility] Foundation literature.Reference ranges:60 or greater: Tzmvku38-34 ( for 3 consecutive months): Chronic kidney disease 15 or less: Kidney failureOakBend Medical CenterGlucose Aeqaw9607-92-33 06:25:00* Test Item Value Reference Range Interpretation Comments Glucose Level (test code = CDK2757) 95 74-118 [facility] CenterCalcium Kkyse9406-59-13 06:25:00* Test Item Value Reference Range Interpretation Comments Calcium Level (test code = 62511-6) 8.1 8.4-10.2 L [facility] CenterTotal Vbujiccqf5501-83-00 06:25:00* Test Item Value Reference Range Interpretation Comments Total Bilirubin (test code = 1975-2) 0.2 0.2-1.2 [facility] CenterAspartate Amino Transf (AST/SGOT) 2018-04-01 06:25:00* Test Item Value Reference Range Interpretation Comments Aspartate Amino Transf (AST/SGOT) (test code = Aspartate Amino Transf (AST/SGOT)) 17 5-34 [facility] CenterAlanine Aminotransferase (ALT/SGPT) 2018-04-01 06:25:00* Test Item Value Reference Range Interpretation Comments Alanine Aminotransferase (ALT/SGPT) (test code = 1742-6) 15 0-55 [facility] CenterTotal Fovsxwr6210-74-37 06:25:00* Test Item Value Reference Range Interpretation Comments Total Protein (test code = 2885-2) 6.4 6.5-8.1 L [facility] CenterAlbumin2019-02-11 06:25:00* Test Item Value Reference Range Interpretation Comments Albumin (test code = 1751-7) 2.9 3.5-5.0 L [facility] CenterGlobulin2019-02-11 06:25:00* Test Item Value Reference Range Interpretation Comments Globulin (test code = 57516-0) 3.5 2.3-3.5 [facility] CenterAlbumin/Globulin Slojh2088-99-48 06:25:00 * Test Item Value Reference Range Interpretation Comments Albumin/Globulin Ratio (test code = 1759-0) 0.8 0.8-2.0 [facility] CenterAlkaline Kkrbkyfrpbw1395-54-98 06:25:00* Test Item Value Reference Range Interpretation Comments Alkaline Phosphatase (test code = 6768-6) 65 40-150 [facility] CenterWhite Blood Nwexi7740-09-17 05:55:00* Test Item Value Reference Range Interpretation Comments White Blood Count (test code = 6690-2) 6.38 4.8-10.8 [facility] CenterRed Blood Iafoc4849-38-94 05:55:00* Test Item Value Reference Range Interpretation Comments Red Blood Count (test code = 789-8) 3.73 3.6-5.1 [facility] CenterHemoglobin2019-02-11 05:55:00* Test Item Value Reference Range Interpretation Comments Hemoglobin (test code = 20153-9) 11.7 12.0-16.0 L [facility] CenterHematocrit2019-02-11 05:55:00* Test Item Value Reference Range Interpretation Comments Hematocrit (test code = 4544-3) 35.9 34.2-44.1 [facility] CenterMean Corpuscular Nwhdey5714-42-85 05:55:00* Test Item Value Reference Range Interpretation Comments Mean Corpuscular Volume (test code = 787-2) 96.2 81-99 [facility] CenterMean Corpuscular Fadteijbre2767-21-54 05:55:00* Test Item Value Reference Range Interpretation Comments Mean Corpuscular Hemoglobin (test code = 785-6) 31.4 28-32 [facility] CenterMean Corpuscular Hemoglobin Concent 2018-04-01 05:55:00* Test Item Value Reference Range Interpretation Comments Mean Corpuscular Hemoglobin Concent (test code = 786-4) 32.6 31-35 [facility] CenterRed Cell Distribution Toepa3986-98-87 05:55:00* Test Item Value Reference Range Interpretation Comments Red Cell Distribution Width (test code = 28237-5) 12.7 11.7 -14.4 [facility] CenterPlatelet Aazxz3623-97-40 05:55:00* Test Item Value Reference Range Interpretation Comments Platelet Count (test code = 777-3) 217 140-360 [facility] CenterNeutrophils (%) (Auto)2018-04-01 05:55:00 * Test Item Value Reference Range Interpretation Comments Neutrophils (%) (Auto) (test code = 16147-1) 49.3 38.7-80.0 [facility] CenterLymphocytes (%) (Auto)2018-04-01 05:55:00 * Test Item Value Reference Range Interpretation Comments Lymphocytes (%) (Auto) (test code = 736-9) 38.4 18.0-39.1 [facility] CenterMonocytes (%) (Auto)2018-04-01 05:55:00* Test Item Value Reference Range Interpretation Comments Monocytes (%) (Auto) (test code = 5905-5) 6.3 4.4-11.3 [facility] CenterEosinophils (%) (Auto)2018-04-01 05:55:00 * Test Item Value Reference Range Interpretation Comments Eosinophils (%) (Auto) (test code = 713-8) 5.2 0.0-6.0 [facility] CenterBasophils (%) (Auto)2018-04-01 05:55:00* Test Item Value Reference Range Interpretation Comments Basophils (%) (Auto) (test code = 706-2) 0.6 0.0-1.0 [facility] CenterIM GRANULOCYTES %2018-04-01 05:55:00* Test Item Value Reference Range Interpretation Comments IM GRANULOCYTES % (test code = IM GRANULOCYTES %) 0.2 0.0- 1.0 [facility] CenterNeutrophils # (Auto)2018-04-01 05:55:00* Test Item Value Reference Range Interpretation Comments Neutrophils # (Auto) (test code = 751-8) 3.2 2.1-6.9 [facility] CenterLymphocytes # (Auto)2018-04-01 05:55:00* Test Item Value Reference Range Interpretation Comments Lymphocytes # (Auto) (test code = 88080-7) 2.5 1.0-3.2 [facility] CenterMonocytes # (Auto)2018-04-01 05:55:00* Test Item Value Reference Range Interpretation Comments Monocytes # (Auto) (test code = 742-7) 0.4 0.2-0.8 [facility] CenterEosinophils # (Auto)2018-04-01 05:55:00* Test Item Value Reference Range Interpretation Comments Eosinophils # (Auto) (test code = 711-2) 0.3 0.0-0.4 [facility] CenterBasophils # (Auto)2018-04-01 05:55:00* Test Item Value Reference Range Interpretation Comments Basophils # (Auto) (test code = 704-7) 0.0 0.0-0.1 [facility] CenterAbsolute Immature Granulocyte (auto 2018-04-01 05:55:00* Test Item Value Reference Range Interpretation Comments Absolute Immature Granulocyte (auto (sidney t code = Absolute Immature Granulocyte (auto) 0.01 0-0.1 [facility] CenterClostridium Difficile Toxin A & B 2018-03-31 14:58:00* Test Item Value Reference Range Interpretation Comments Clostridium Difficile Toxin A & B (test code = 814522978) NEGATIVE NEGATIVE Testing on stool aspirate specimens is outside steel roller claims since specime n type not validated on this assay.[facility] Clostridium Difficile Toxin A & B0682-97-07 14:58:00* Test Item Value Reference Range Interpretation Comments Clostridium Difficile Toxin A & B (test code = 435193547) NEGATIVE NEGATIVE Testing on stool aspirate specimens is outside steel roller claims since specime n type not validated on this assay.[facility] Clostridium Difficile Toxin A & M8425-86-26 14:58:00* Test Item Value Reference Range Interpretation Comments Clostridium Difficile Toxin A & B (test code = 547717438) NEGATIVE NEGATIVE Testing on stool aspirate specimens is outside steel roller claims since specime n type not validated on this assay.[facility] Clostridium Difficile Toxin A & H1507-79-45 14:58:00* Test Item Value Reference Range Interpretation Comments Clostridium Difficile Toxin A & B (test code = 464687721) NEGATIVE NEGATIVE Testing on stool aspirate specimens is outside steel roller claims since specime n type not validated on this assay.[facility] Prothrombin Lybk5174-65-22 06:23:00* Test Item Value Reference Range Interpretation Comments Prothrombin Time (test code = 5902-2) 14.4 11.9-14.5 [facility] CenterProthromb Time International Ratio 2018-03-31 06:23:00* Test Item Value Reference Range Interpretation Comments Prothromb Time International Ratio (test code = 6301-6) 1.03 Oral Anticoagulant Therapy INR Values:1. Low Intensity Therapy 1.5 - 2.02 . Moderate Intensity Therapy 2.0 - 3.03. High Intensity Therapy(1) 2.5 - 3. 54. High Intensity Therapy(2) 3.0 - 4.05. Panic Value INR > 5.0 [facility] Lactoferrin (LAB)2018-03-30 18:58:00* Test Item Value Reference Range Interpretation Comments Stool Lactoferrin (LAB) (test code = 26999-7) NEGATIVE NEGATIVE Testing on stool aspirate specimens is outside steel roller claims since specime n type not validated on this assay.[facility] Lactoferrin (LAB)2018-03-30 18:58:00* Test Item Value Reference Range Interpretation Comments Stool Lactoferrin (LAB) (test code = 84841-2) NEGATIVE NEGATIVE Testing on stool aspirate specimens is outside steel roller claims since specime n type not validated on this assay.[facility] Lactoferrin (LAB)2018-03-30 18:58:00* Test Item Value Reference Range Interpretation Comments Stool Lactoferrin (LAB) (test code = 90139-7) NEGATIVE NEGATIVE Testing on stool aspirate specimens is outside steel roller claims since specime n type not validated on this assay.[facility] Lactoferrin (LAB)2018-03-30 18:58:00* Test Item Value Reference Range Interpretation Comments Stool Lactoferrin (LAB) (test code = 09375-1) NEGATIVE NEGATIVE Testing on stool aspirate specimens is outside steel roller claims since specime n type not validated on this assay.[facility] CenterLactic Acid Tecul1829-66-35 04:13:00* Test Item Value Reference Range Interpretation Comments Lactic Acid Level (test code = Lactic Acid Level) 8.5 4.5- 19.8 [facility] CenterLactic Acid Yghdu6834-13-70 04:13:00* Test Item Value Reference Range Interpretation Comments Lactic Acid Level (test code = Lactic Acid Level) 8.5 4.5- 19.8 [facility] CenterLactic Acid Mbinw8534-21-43 04:13:00* Test Item Value Reference Range Interpretation Comments Lactic Acid Level (test code = Lactic Acid Level) 8.5 4.5- 19.8 [facility] CenterLactic Acid Nxzwj2074-82-37 04:13:00* Test Item Value Reference Range Interpretation Comments Lactic Acid Level (test code = Lactic Acid Level) 8.5 4.5- 19.8 [facility] CenterTriglycerides Watjq6522-51-77 17:29:00* Test Item Value Reference Range Interpretation Comments Triglycerides Level (test code = 2571-8) 88 0-149 [facility] CenterCholesterol Qfmcp3655-70-40 17:29:00* Test Item Value Reference Range Interpretation Comments Cholesterol Level (test code = 2093-3) 176 0-199 Less than 200 mg/dL Low Uezl237 - 239 mg/dL Borderline Npya567 m g/dl and greater High Risk [facility] CenterLDL Aydgvlzxdcr3584-68-24 17:29:00* Test Item Value Reference Range Interpretation Comments LDL Cholesterol (test code = 2089-1) 106 60-130 [facility] CenterHDL Xcodmuvmuae4248-28-51 17:29:00* Test Item Value Reference Range Interpretation Comments HDL Cholesterol (test code = 2085-9) 52 40-60 [facility] CenterCholesterol/HDL Wavis7392-85-78 17:29:00 * Test Item Value Reference Range Interpretation Comments Cholesterol/HDL Ratio (test code = 9830-1) 3.4 3.0-3.6 [facility] CenterHemoglobin A1c Jlnfpxb1001-38-37 17:20:00 * Test Item Value Reference Range Interpretation Comments Hemoglobin A1c Percent (test code = Hemoglobin A1c Percent) 7.2 4.0-7.0 H [facility] CenterHemoglobin A1c Bsmbvpw2842-61-85 17:20:00 * Test Item Value Reference Range Interpretation Comments Hemoglobin A1c Percent (test code = Hemoglobin A1c Percent) 7.2 4.0-7.0 H [facility] CenterHemoglobin A1c Meavjhb9251-67-30 17:20:00 * Test Item Value Reference Range Interpretation Comments Hemoglobin A1c Percent (test code = Hemoglobin A1c Percent) 7.2 4.0-7.0 H [facility] CenterHemoglobin A1c Zgcleqa4360-98-17 17:20:00 * Test Item Value Reference Range Interpretation Comments Hemoglobin A1c Percent (test code = Hemoglobin A1c Percent) 7.2 4.0-7.0 [facility]PELVIS M9703-88-21 16:57:00 [facility] [address] [address] Patient Name: JESUS ASCENCIO MR #: [id number] : 1955 Age/Sex: 63/F Req #: [id number] Adm Physician: NIKKO OCONNOR MD Ordered by: ARGELIA FRAGA MD Report #: [id number] Location: [facility] Room/Bed: [place] [address] Procedure: [id number] CT/CT ABDOMEN/PELVIS W Exam Date: Exam Time: REPORT STATUS: Signed EXAMINATION: CT of t he abdomen and pelvis with contrast. TECHNIQUE: Spiral CT images of the abdomen and pelvis were performed from the lung bases to the lesser trochanter s after the intravenous administration of 100 cc Isovue-370 and the oral admin istration of water Coronal and sagittal reformatted images were obtained. COMPARISON: 12/28/2017 CLINICAL HISTORY:Abdominal pain DISCUSSION : ABDOMEN/PELVIS: LOWER THORAX:Unremarkable. HEPATOBILIARY: No fo emil hepatic lesions. No intra-or extrahepatic biliary ductal dilation. The g allbladder has been removed. SPLEEN: No splenomegaly. PANCREAS: No fo emil masses or ductal dilatation. ADRENALS: No adrenal nodules. KIDNEY S/URETERS: No hydronephrosis, stones, or solid mass lesions. PELVIC ORGANS/ BLADDER: The bladder is normal. Status post hysterectomy. PERITONEUM/RETR OPERITONEUM: No free air or fluid. LYMPH NODES: No intra-abdominal, retrope ritoneal, pelvic or inguinal lymphadenopathy. VESSELS: The celiac trunk,s uperior and inferior mesenteric and bilateral renal arteries are patent The portal, superior mesenteric and splenic veins are patent. GI TRACT: Scatt ered diverticula along the sigmoid colon without wall thickening or inflammato ry change. No small bowel dilatation to suggest obstruction. BONES AND SOFT TISSUE: Surgical clips along the right pelvic sidewall unchanged. No osseous destructive lesion. Degenerative disc changes of the lumbosacral junction. No focal soft tissue abnormalities. IMPRESSION: No acute intra-abdominal or pelvic CT abnormalities. Large bowel diverticulosis without diverticuli tis. Signed by: Dr. Odalys Ledezma M.D. on 03/28/2018 5:02 PM Dictated By: ODALYS LEDEZMA MD 17 Transcribed By: DARION on 03/28/18 1702 COPY TO: ARGELIA FRAGA MD Qmbyih6028-21-59 14:54:00* Test Item Value Reference Range Interpretation Comments Lipase (test code = 3040-3) [facility] CenterLipase2019-02-07 14:54:00* Test Item Value Reference Range Interpretation Comments Lipase (test code = 3040-3) [facility] CenterABDOMEN-1VIEW (KUB)2018-03-28 13:22:00 [facility] [address] [place] [address] Patient Name: JESUS ASCENCIO MR #: [id number] : 1955 Age/Sex: 63/F Req #: [id number] Adm Physician: Ordered by: ARGELIA FRAGA MD Report #: [id number] Location: Room/Bed: Procedure: [id number] DX/AB KRISTENNICOLE-1ANABELLE (KUB) Exam Date: 03/28/18 Exam Time: 130 0 REPORT STATUS: Signed Exam: Abdominal film Clinical History: Abdominal pain, history of obstruction Comparison: CT abdomen and pelvis with contrast 12/28/2017 DISCUSSION: T he bowel gas pattern shows no dilated, air-filled loops of bowel. Gas and feca l material is noted throughout the large bowel and rectum. No mass effect or o rganomegaly. Right upper quadrant and right pelvic surgical clips. Radiopaque suture material faintly visualized projecting over the left iliac wing. R egional skeletal structures are intact. IMPRESSION: Nonobstructive bow el gas pattern. Signed by: Dr. Odalys Ledezma M.D. on 03/28/19 1:25 PM Dictated By: ODALYS LEDEZMA MD 1325 Transcribed By: DARION on 03/28/18 1325 BUILDING TRADES INSTRUCTOR Y TO: ARGELIA FRAGA MD CT ABDOMEN/PELVIS [id number] 11:46:00 [place] [address] Patient Name: JEUSS ASCENCIO MR #: [id number] : 1955 Age/Sex: 62/F Req #: [id number] Adm Physician: Ordered by: TONYA ALANIS MD Report #: [id number] Location: ER o/Bed: Procedure: [id number] CT/CT A BDOMEN/PELVIS W Exam Date: 12/28/17 Exam Time: 1114 REPORT STATUS: Signed EXAMINATIO N: CT of the abdomen and pelvis with contrast. TECHNIQUE: Helical CT cameron ges of the abdomen and pelvis were performed from the lung bases to the lesser trochanters after the intravenous administration of 150 cc of Isovue 300 and the oral administration of Redicat. Coronal and sagittal reformatted images w ere obtained.Dose modulation, iterative reconstruction, and/or weight based ad justment of the mA/kV was utilized to reduce the radiation dose to as low as r easonably achievable. COMPARISON: None. CLINICAL HISTORY:Flank pain and hematuria DISCUSSION: ABDOMEN/PELVIS: LOWER THORAX:Unrem arkable. HEPATOBILIARY: No focal hepatic lesions. No intra-or extrahepatic biliary ductal dilation. Cholecystectomy. SPLEEN: No splenomegaly. PANCREAS: No focal masses or ductal dilatation. ADRENALS: No adrenal nod ules. KIDNEYS/URETERS: No hydronephrosis, stones, or solid mass lesions. PELVIC ORGANS/BLADDER: Hysterectomy. PERITONEUM/RETROPERITONEUM: No free air or fluid. LYMPH NODES: No intra-abdominal, retroperitoneal, pelvic or inguinal lymphadenopathy. VESSELS: Minimal vascular calcifications. GI TRACT: No distention or wall thickening. BONES AND SOFT TISSUE: No bony destructive lesions. No soft tissue abnormalities. IMPRESSION: No acute CT finding. Signed by: Dr. Bridgette Melendez M.D. on 12/28/2017 11:5 3 AM Dictated By: BRIDGETTE MELENDEZ MD 1153 Transcribed By: DARION on 12/28/17 1153 BUILDING TRADES INSTRUCTOR Y TO: TONYA ALANIS MD CT CHEST [id number] 11:40:00 [place] [address] Patient Name: JESUS ASCENCIO MR #: [id number] : 1955 Age/Sex: 62/F Req #: [id number] Adm Physician: Ordered by: TONYA ALANIS MD Report #: [id number] Location: [facility] kalpesh/Bed: Procedure: [id number] CT/CT C HEST W Exam Date: 12/28/17 Exam Time: 1114 REPORT STATUS: Signed EXAMINATION: CT sca n of the chest with contrast. TECHNIQUE: Helical CT images of the chest we re performed from the lung apices to the level of the adrenal glands after the intravenous administration of 100 cc of Isovue 300. Coronal and sagittal ref ormatted images were obtained.Dose modulation, iterative reconstruction, and/o r weight based adjustment of the mA/kV was utilized to reduce the radiation do se to as low as reasonably achievable. COMPARISON: None. CLINICAL H ISTORY:Chest pain and fall DISCUSSION: LINES/TUBES: None. LUNGS AND AIRWAYS: Mosaic attenuation likely due to hypoperfusion. No concerning n odule or mass. No consolidation. No pulmonary embolism PLEURA: No pneu mothorax or pleural effusions. HEART AND MEDIASTINUM: The thyroid gland i s normal. The heart and pericardium are within normal limits. LYMPH NOD ES: There is no mediastinal, hilar or axillary lymphadenopathy. ABDOMEN: Re mary ann to additional report. BONES AND SOFT TISSUES: No acute bony abnormaliti es. IMPRESSION: No pulmonary embolism. Signed by: Dr. Bridgette garcia M.D. on 12/28/2017 11:43 AM Dictated By: BRIDGETTE MELENDEZ MD Electr onically Signed By: BRIDGETTE MELENDEZ MD on 12/28/17 1143 Transcribed By: SAYRA Fierro on 12/28/17 1143 COPY TO: TONYA ALANIS MD Phenytoin (Dilantin) Raymw7493-14-37 10:11:00* Test Item Value Reference Range Interpretation Comments Phenytoin (Dilantin) Level (test code = 3968-5) 13.41 10-20 [facility] Krqkv4150-87-74 10:11:00* Test Item Value Reference Range Interpretation Comments Phenytoin (Dilantin) Level (test code = 3968-5) 13.41 10-20 [facility] 2 NGMMW2447-46-06 09:55:00 [facility] [place] [address] Patient Name: JESUS ASCENCIO MR #: [id number] : 1955 Age/Sex: 62/F Req #: [id number] [facility] Physician: Ordered by: TOYNA ALANIS MD Report #: [id number] Location: [facility] o/Bed: Procedure: [id number] DX/CHES T 2 VIEWS Exam Date: 12/28/17 Exam Time: 0820 REPORT STATUS: Signed PROCEDURE: X-RAY CHEST, TWO VIEWS COMPARISON: None. INDICATIONS: CHEST PAIN FINDINGS: LUNGS: No consolidations or edema. PLEURA: No effusions or pneu mothorax. HEART MEDIASTINUM: The heart is within normal size-limits. Left-sided subclavian approach chest port in appropriate location. BONE S SOFT TISSUES: No acute findings. Degenerative changes of these line. CONCLUSION: No acute thoracic abnormality. Anna Barrett am, D.O. Dictated by: Anna Peterson D.O. on 12/28/2017 at 9:55 Elec tronically approved by: Anna Peterson D.O. on 12/28/2017 at 9:55 Dictated By: ANNA PETERSON DO 4 COPY TO: Tobias ALANIS MD Activated Partial Thromboplast Lipf1028-60-59 09:25:00* Test Item Value Reference Range Interpretation Comments Activated Partial Thromboplast Time (test code = 02255-8) 31.9 23.8-35.5 [facility] VD7477-21-39 09:09:00* Test Item Value Reference Range Interpretation Comments Creatine Kinase MB (test code = 40438-3) 0.70 0-5.0 [facility] Y3629-92-80 09:09:00* Test Item Value Reference Range Interpretation Comments Troponin I (test code = WFX7113) 0.001 0-0.300 [facility] Bipxk4509-49-26 09:02:00* Test Item Value Reference Range Interpretation Comments Magnesium Level (test code = 24842-8) 2.3 1.3-2.1 H [facility]ine Xrctmh9238-41-94 09:02:00* Test Item Value Reference Range Interpretation Comments Creatine Kinase (test code = 2157-6) 118 29-168 [facility] OKMYY5595-30-21 02:30:00 Negative *NA*(05/28/16 9:30 PM)[facility] IWYCY7063-97-37 02:30:00 Large *ABN*(05/28/16 9:30 PM)[facility] LRMJL9760-66-37 02:30:00 Marked *ABN*(05/28/16 9:30 PM)[facility] LBSOS2821-96-52 02:30:00 Yellow *NA*(05/28/16 9:30 PM)[facility] ITTWH9164-21-81 02:30:00 1.018[facility] VSMDK6401-15-12 02:30:006.0[facility] MKELJ3687-16-40 02:30:0010[facility] QTJVF9333-46-46 02:30:00 >182[facility] XPARJ6820-55-98 02:30:00Positive *ABN*(05/28/16 9:30 PM)[facility] KEJPF4111-51-73 02:30:00Large *ABN*(05/28/16 9:30 PM)[facility] DULVBFL2029-90-08 23:19:00<0.02[facility] CARDIAC CAJNCNZ5599-62-53 23:19:04198Iasyxwod HermannCARDIAC OLYVPIE4603-25-53 23:19:001.8[facility]ARD[facility]AC JKSGJRF5959-66-37 23:19:001.3[facility] CHEM JOCIW9404-73-49 23:19:0070[facility]annCHEM PDCQR4142-39-10 23:19:0015 [facility] AFWFV8337-47-35 23:19:0021[facility]ann[facility] PANEL 2016-05-28 23:19:003.4[facility]ann[facility] XBNKY4686-37-31 23:19:007.8[facility]annCHE[facility] LPWMW2631-23-91 23:19:008.6[facility] QLMQJ2847-62-27 23:19:000.8[facility]annCHE[facility] ZLOAV5112-87-76 23:19:0017.3[facility]annCHE[facility] AHNJZ7038-42-79 23:19:004.4[facility]annCHE[facility] TEOMJ3440-64-11 23:19:0024 [facility]ann[facility] LNFLN6743-95-95 23:19:000.3[facility]annCHE[facility] PANEL 2016-05-28 23:19:0090[facility]annCHEM RPHWF8125-40-65 23:19:40771Okaaghig HermannCHEM USADV4167-93-17 23:19:003.3[facility]annCHEM LOXEW8489-47-34 23:19:42413Lvxhktie HermannCHEM FRKDY5455-49-36 23:19:46420Akwvnsdv HermannCHEM IHVQL9370-35-99 23:19:0023[facility]annCHEM CDNUN8934-51-30 23:19:000.90 [facility]annCHE[facility] CNLBG6380-82-10 23:19:0022[facility]annCHEM PANEL 2016-05-28 23:19:0083[facility] PayuddeLTGKSNSEWO6846-40-24 23:19:0013.3[facility] EifnwyaMYPAXFFTTH1433-88-16 23:19:83172Rkljulvl PqnnlxiOJBPOQBDDG8148-52-68 23:19:008.2[facility] EmocezdGZBJZXWDNG9838-42-56 23:19:0034.2[facility] FKHVCAZDPL2198-93-84 23:19:00* Test Item Value Reference Range Interpretation Comments MCH (test code = MCH) 31.6 pg 27.0-31.0 [facility] TxhrkwxLIAOFGVSKK8544-06-61 23:19:0013.3[facility]annHEMATOLOGY 2016-05-28 23:19:0092.4[facility] FhgihpuHVZKLKJUBQ8741-00-94 23:19:0038.9[facility] WyolztwWUKHUNSHKX3736-89-60 23:19:004.21[facility] RauylfuYLMHMXAELV9075-89-29 23:19:009.3[facility] ZiuhncnRYEXFQAJZP6993-70-61 23:19:001.05[facility] AQHPSVXLXU4235-80-49 23:19:00* Test Item Value Reference Range Interpretation Comments PT (test code = PT) 13.9 s 12.0-14.7 [facility] EcychvjTPDOXWBTFU9701-02-06 23:19:00* Test Item Value Reference Range Interpretation Comments PTT (test code = PTT) 29.9 s 22.9-35.8 [facility] IhoksvjVNMBTWSSIH1896-10-80 23:19:000.9[facility]annHEMATOLOGY 2016-05-28 23:19:002.9[facility] GjizuorVDVXOWAPVD6481-81-13 23:19:004.7[facility] IvbsgynLUDCELOQQM8825-96-11 23:19:005.4[facility] WhuomgvBHLWXNDXAY0942-21-37 23:19:000.4[facility] SetqfsrKXRQLRQEYP2459-27-83 23:19:000.1[facility] QYQUNHDXDO8538-34-89 23:19:000.5[facility] RduhnbyTYVMJQNFRK4626-25-30 23:19:00 57.8[facility] CgeksgxTMZSVVCZRR0271-75-25 23:19:0031.0[facility]annHEMATOLOGY 2016-05-28 23:19:005.6[facility] ZhrxhfyGSVSLPPYH4702-55-13 22:30:85939Mkaezqtu IkxurgsEEKMNHNFO4389-37-19 22:29:0039[facility] QpvpnoeZRLVVEGPO4378-23-65 22:29:00<0.02[facility] ZdmirmzTUAGLPTSP5434-23-45 22:29:0010[facility] EJNMWFBMX0696-87-11 22:29:38775Jsacaces JvcsimrWHYXQVJZG0547-29-92 22:29:0018 [facility] EbsdiufHRMVVLEBG3525-68-36 22:29:0095[facility]annCHEMISTRY 2011-07-14 22:29:0025[facility] IbrofouTVBHDCKTK0201-52-47 22:29:009.0[facility] LuqjohyALKRNUAIU5494-20-22 22:29:000.7[facility] EiuaxubUBGLEYGBN7986-88-03 22:29:27156Nxrqrzcl DqytyxeUDLITPBLN3977-52-91 22:29:004.2[facility] EOSYQHKKN6873-12-19 22:29:0016.2[facility] KlgzkjnEDZHIBOZQ6904-96-70 22:29:00< 0.003[facility] BrezvvfUDCVZQRKJ5315-30-85 22:29:00<3[facility]annHEMATOLOGY 2011-07-14 22:29:26772Rpjchtbu LnjfwjdSBONYXZSRT9490-01-03 22:29:0013.1[facility] PcdtpsfSCEOVSZGBX7614-60-27 22:29:0034.3[facility] NfosmlhIGQIWCCBSN7706-04-24 22:29:008.0[facility] FgioobiFYVSXJLLXT7466-65-91 22:29:0013.6[facility] FTTINJFUOQ4119-83-03 22:29:00* Test Item Value Reference Range Interpretation Comments MCH (test code = MCH) 31.7 pg 27.0-31.0 H [facility] MtkbyorRTIUJYGDYI2451-03-57 22:29:0092.5[facility]annHEMATOLOGY 2011-07-14 22:29:0039.7[facility] WcmthrvWRJKKTFFZO7186-35-42 22:29:004.29[facility] VzcsatgDNVIEHXRQY5645-69-80 22:29:0014.1[facility] NurqttwXRVSPAUWVL9477-94-20 22:29:000.93[facility] GchmgbwLYIMEHFKBY9250-10-11 22:29:00* Test Item Value Reference Range Interpretation Comments PTT (test code = PTT) 22.9 s 22.9-35.8 N [facility] KdylitrAKREOQCJUC4932-36-97 22:29:00* Test Item Value Reference Range Interpretation Comments PT (test code = PT) 12.5 s 12.0-14.7 N [facility] HxhhvckRFAXWLLKZC7147-08-92 22:29:00Normal (07/14/2011 17:29:00) [facility] XhigyszXEJNJRGORY5417-58-74 22:29:00Normal (07/14/2011 17:29:00) [facility] EnwmjhvMGVXGXIORV9158-01-79 22:29:0010.5[facility]annHEMATOLOGY 2011-07-14 22:29:002.9[facility] FxakhblZFFQNEUBPX9339-38-03 22:29:000.0[facility] GmsicaoLUWWQFOCDB0948-28-06 22:29:000.2[facility] OaidsxyFPVSVYZRJG7078-31-12 22:29:000.0[facility] YgcuokqATIHFXLRPZ7481-80-00 22:29:001.6[facility] DZDLWAFVKB5413-24-38 22:29:003.9[facility] AdsfhvzODUVYEKTQD7766-97-09 22:29:00 20.3[facility] SwwhylqHJZOZVJAUD0929-51-78 22:29:000.5[facility]annHEMATOLOGY 2011-07-14 22:29:0074.2[facility] UzqpvesSUECFDOCBS9040-49-98 21:52:00Negative *NA*(07/14/2011 16:52:00) [facility]
[2019-09-23 21:27] LABS: ALANINE AMINOTRANSFERASE 38 IU/L (0-55); ALBUMIN 3.5 g/dL (3.5-5.0); ALBUMIN/GLOBULIN RATIO 0.8 (0.8-2.0); ALKALINE PHOSPHATASE 80 IU/L (40-150); ANION GAP 12.5 mmol/L (8-16); BLOOD UREA NITROGEN 10 mg/dL (7-26); BUN/CREATININE RATIO 13 (6-25); CALCIUM 8.7 mg/dL (8.4-10.2); CARBON DIOXIDE 22 mmol/L (22-29); CHLORIDE 109 mmol/L (98-107); CREATININE, SERUM 0.76 mg/dL (0.57-1.11); EST GLOMERULAR FILTRATION RATE > 60 ML/MIN (60-); GLUCOSE 100 mg/dL (74-118); POTASSIUM 3.5 mmol/L (3.5-5.1); SODIUM 140 mmol/L (136-145)
[2019-09-23] MEDS ORDERED: LORAZEPAM INJ 2 MG/ML VIAL ONE (22:38)
--- NOTE | 2019-09-23 23:30 | NUR ---
Note drea in ED - 09/24/19 at 0439 by MAKEDA 10cc blood withdrawn from port a cath. port a cath packed c heparin lock per orders. old dressing removed. villanueva needle removed c gauze dressing applied and secured c tegaderm. no bleeding noted.
--- NOTE | 2019-09-23 23:30 | NUR ---
10cc blood withdrawn from port a cath. port a cath packed with heparin lock per orders. old dressing removed. villanueva needle removed c gauze dressing applied. gauze secured c tegaderm. no bleeding noted at this time.
--- NOTE | 2019-09-23 23:34 | Diagnostic Imaging Report ---
EXAM: CT Chest WITH contrast 09/23/2019 10:17 PM INDICATION: ^chest wall infection COMPARISON: CT dated 05/04/2016 TECHNIQUE: Chest was scanned utilizing a multidetector helical scanner from the lung apex through the level of the adrenal glands with administration of IV contrast. Coronal and sagittal reformations were obtained. Routine protocol was performed. IV CONTRAST: 100 mL of Isovue 370 COMPLICATIONS: None RADIATION DOSE: Total DLP: 541.26 mGy*cm Estimated effective dose: (DLP x 0.014 x size factor) mSv CTDIvol has been reviewed. It is below the limits set by the Radiation Protocol Committee (RPC). Dose modulation, iterative reconstruction, and/or weight based adjustment of the mA/kV was utilized to reduce the radiation dose to as low as reasonably achievable. FINDINGS: LINES/ TUBES: Left chest wall infusion port catheter with tip projecting over the distal SVC. LUNGS AND AIRWAYS: The lungs are unremarkable. Airways are normal. PLEURA: The pleural spaces are clear. HEART AND MEDIASTINUM: The thyroid gland is normal. No mediastinal, hilar or axillary lymphadenopathy. The heart is normal in size. There is no pericardial effusion. UPPER ABDOMEN: Unremarkable. BONES: Subacute fractures of the posterior 8th and 10th left ribs. SOFT TISSUES: Unremarkable. IMPRESSION: 1. No evidence of chest wall infection. Subacute fractures of the posterior eighth and 10th left ribs. 2. No acute thoracic process. Signed by: Max Ramos MD on 09/23/2019 11:31 PM
[2019-09-23] MEDS ORDERED: SODIUM CHLORIDE 0.9% 50ML 50 ML ONE (23:52)
[2019-09-23] MEDS ORDERED: IOPAMIDOL 370 MG/ML 200 ML INFUS..BTL INJ ONE (23:52)
== END 2019-09-24 00:30 | disposition home or self-care (01) ==
LOC: ER 20:25
DX: R07.89 Other chest pain (principal); I10 Essential (primary) hypertension; E11.9 Type 2 diabetes mellitus without complications; J44.9 Chronic obstructive pulmonary disease, unspecified; I50.9 Heart failure, unspecified; G40.909 Epilepsy, unspecified, not intractable, without status epilepticus; Z98.0 Intestinal bypass and anastomosis status; Z86.718 Personal history of other venous thrombosis and embolism; Z85.038 Personal history of other malignant neoplasm of large intestine
CPT/HCPCS: 36415; 71260; 80053; 85025; 99283; Q9967; J2060

== ENCOUNTER 2019-10-27 01:35 | Inpatient (IN) | payer MEDICARE ==
[~2019-10-27] VITALS: Ht 160 cm; Wt 83.0 kg
[2019-10-27] MEDS ORDERED: ONDANSETRON HCL INJ 2MG/ML 2ML 2 MG/ML VIAL IV STA ×2 (01:53→06:09)
[2019-10-27] MEDS ORDERED: MORPHINE SULFATE 2 MG/ML SYR 1ML IV STA (01:53)
[2019-10-27] MEDS ORDERED: DIATRIZOATE MEGL/DIATRIZOA SOD 30 ML BTL PO ONE (01:57)
[2019-10-27] MEDS ORDERED: SODIUM CHLORIDE 0.9% 1000ML 1,000 ML IV SCH ×2 (02:00→06:15)
--- OUTSIDE RECORDS SUMMARY | 2019-10-27 02:26 | XMS REPORT | Continuity of Care Document ---
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 Name Role Phone [facility] via[employer] Information Exchange Unavailable Un available Problems Problem Status Onset Date Classification Date Reported Comments Source CHEST PAIN IN ADULT,ARM PAIN,RT,SOB-SHOR Active 07/08/2018 [facility] VOMITING / ARM PAIN Active 07/08/2018 [facility] NOSEBLEED/COUGHING UP BLOOD Ac tive 01/10/2018 [facility] COUMADIN TOXICITY Active 01/10/2018 [facility] Urinary tract infection, site not specified 05/29/2016 06/01/2016 [facility] ABD PAIN Active 05/28/2016 [facility] SENT BY Active 07/14/2011 [facility] Anxiety Active Problem 07/17/2011 [facility] Back pain Active Problem 07/17/2011 [facility] Chest pain Active Problem 07/17/2011 [facility] Deep vein thrombosis Active Problem 07/17/2011 [facility] Depression Active Problem 07/17/2011 [facility] Dysmenorrhea Active Problem 07/17/2011 [facility] Fracture of knee-cap Active Problem 07/17/2011 [facility] Hay fever Active Problem 07/17/2011 [facility] Incontinence Active Problem 07/17/2011 [facility] Migraine Active Problem 07/17/2011 [facility] Nausea and vomiting Active Problem 07/17/2011 [facility] Neck pain Active Problem 07/17/2011 [facility] Osteoarthritis Active Problem 07/17/2011 [facility] Panic disorder Active Problem 07/17/2011 [facility] Pulmonary embolism Active Problem 07/17/2011 [facility] Seizure Active Problem 07/17/2011 [facility] Shoulder pain Active Problem 07/17/2011 [facility] Stroke Active Problem 07/17/2011 [facility] Suicide attempt Active Problem 07/17/2011 [facility] UTI - Urinary tract infection Active Problem [facility] Anxiety (finding) Active Problem 07/11/2018 [facility] Backache (finding) Active Problem 07/11/2018 [facility] Chest pain (finding) Active Problem 07/11/2018 [facility] Deep venous thrombosis (disorder) Active Problem [facility] Depressive disorder (disorder) Active Problem [facility] Diabetes mellitus (disorder) A ctive Problem [facility] Dysmenorrhea (disorder) Active Problem 07/11/2018 [facility] Epilepsy (disorder) Active Problem 07/11/2018 [facility] Fracture of patella (disorder) Active Problem [facility] Allergic rhinitis due to pollen (disorder) Active Problem 07/11/2018 [facility] Hypertensive disorder, systemic arterial (disorder) Active Problem 07/11/2018 [facility] Incontinence (finding) Active Problem 07/11/2018 [facility] Malignant tumor of colon (disorder) Active Problem [facility] Migraine (disorder) Active Problem 07/11/2018 [facility] Nausea and vomiting (disorder) Active Problem [facility] Neck pain (finding) Active Problem 07/11/2018 [facility] Osteoarthritis (disorder) Acti ve Problem [facility] Panic disorder (disorder) Acti ve Problem [facility] Pulmonary embolism (disorder) Active Problem [facility] Seizure (finding) Active Problem 07/11/2018 [facility] Shoulder pain (finding) Active Problem 07/11/2018 [facility] Sleep apnea (finding) Active Problem 07/11/2018 [facility] Cerebrovascular accident (disorder) Active Problem [facility] Suicide attempt (disorder) Act capo Problem [facility] Urinary tract infectious disease (disorder) Active Problem 07/11/2018 [facility] Coronary arteriosclerosis (disorder) Active Problem [facility] CHEST PAIN, UNSPECIFIED Active [facility] PAIN IN RIGHT ARM Active [facility] SHORTNESS OF BREATH Active [facility] POISONING BY ANTICOAGULANTS, ACCIDENTAL, Active [facility] Medications Medication Details Route Status Patient Instructions Ordering Provider Order Date Source Dilantin Notes: (Same as: Dila ntin) Do not open, crush, or chew. Inactive 07/10/2018 [facility] Phenobarbital Notes: (Same as: Barbita, Luminal, Solfoton) Inactive 07/10/2018 [facility] Lipitor Notes: (Same As: Lipit or) Inactive 07/10/2018 [facility] Acetaminophen 300 MG / Codeine Phosphate 30 MG Oral Tablet [Tylenol with Codeine #3] 1 tab, PO, Q6H, PRN Pain, X 7 day, # 28 tab, 0 Refill(s) Active 07/09/2018 [facility] Acetaminophen 300 MG / Codeine Phosphate 30 MG Oral Tablet [Tylenol with Codeine #3] 1 tab, PO, Q6H, PRN Pain, X 7 day, # 28 tab, 0 Refill(s), given to patient Inactive 07/09/2018 [facility] Warfarin Notes: Nurse to benny e documentation of patient education per anticoagulation policy. Avoid large intake of vitamin-K containing foods diet. WASTE: F/P - P Waste Black; E - P Waste Black (Same As: Coumadin) Inactive 07/09/2018 [facility] atorvastatin 10 mg oral tablet 20 mg = 2 tab, PO, Bedtime, 0 Refill(s) Active 07/09/2018 [facility] Lyrica Notes: (Same as: Lyrica) Inactive 07/09/2018 [facility] Dilantin Notes: (Same as: Dila ntin) Do not open, crush, or chew. Inactive 07/09/2018 [facility] Omeprazole 20 mg, Route: PO, D aily, Dosing Weight 72.727, kg, Start date: 07/09/18 9:00:00 CDT, Duration: 30 day, Stop date: 08/07/18 9:00:00 CDT Inactive 07/09/2018 [facility] Citalopram 20 mg, 2 tab, Route : PO, Drug form: TAB, Daily, Dosing Weight 72.727, kg, Start date: 07/09/18 9:00:00 CDT, Duration: 30 day, Stop date: 08/07/18 9:00:00 CDT Inactive 07/09/2018 [facility] Saline Flush 0.9% Notes: (Same as: BD Posiflush) Inactive 07/09/2018 [facility] Protonix Notes: Tablet should not be chewed or crushed. (Same as: Protonix) Inactive 07/09/2018 [facility] Phenobarbital Notes: (Same as: Barbita, Luminal, Solfoton) Inactive 07/09/2018 [facility] Morphine Notes: (Same as:MORPh ine Sulfate) Inactive 07/09/2018 [facility] Ketorolac 4 days. Inactive 07/09/2018 [facility] Saline Flush 0.9% Notes: (Same as: BD Posiflush) Inactive 07/09/2018 [facility] Nitroglycerin Notes: (Same as: Nitroquick, Nitrostat) "Do Not Crush" Sublingual tablet Inactive 07/09/2018 [facility] pneumococcal capsular polysaccharide typ e 1 vaccine / pneumococcal capsular polysaccharide type 10A vaccine / pneumococcal capsular polysaccharide type 11A vaccine / pneumococcal capsular polysaccharide type 12F vaccine / pneumococcal capsular polysacchar Notes: (Same as: Pneumovax 23) Refrigerate No Longer Active 07/09/2018 [facility] Ketorolac 15 mg, Route: IVP, D rug form: INJ, ONCE, Dosing Weight 72.727, kg, Priority: STAT, Start date: 07/08/18 21:35:00 CDT, Stop date: 07/08/18 21:35:00 CDT Inactive 07/09/2018 [facility] tramadol hydrochloride 50 MG Oral Tablet 50 mg = 1 tab, PO, Q12H, PRN Pain, X 10 day, # 20 tab, 0 Refill(s) Active 05/29/2016 [facility] tramadol hydrochloride 50 MG Oral Tablet 50 mg, Route: PO, Drug form: TAB, ONCE, Dosing Weight 63.636, kg, Priority: STAT, Start date: 05/29/16 1:57:00 CDT, Stop date: 05/29/16 1:57:00 CDT Inactive 05/29/2016 [facility] ciprofloxacin 500 mg oral tablet 500 mg = 1 tab, PO, Q12H, X 10 day, # 20 tab, 0 Refill(s) Active 05/29/2016 [facility] Diphenhydramine 25 mg, Route: IVP, ONCE, Dosing Weight 63.636, kg, Priority: STAT, Start date: 05/28/16 23:59:00 CDT, Stop date: 05/28/16 23:59:00 CDT No Longe r Active 05/29/2016 [facility] Prednisone 60 mg, Route: PO, D rug form: TAB, ONCE, Dosing Weight 63.636, kg, Priority: STAT, Start date: 05/28/16 23:59:00 CDT, Stop date: 05/28/16 23:59:00 CDT No Longer Active 05/29/2016 [facility] Ciprofloxacin 400 mg, Route: I VPB, ONCE, Dosing Weight 63.636, kg, Priority: STAT, Start date: 05/28/16 23:59:00 CDT, Stop date: 05/28/16 23:59:00 CDT No Longe r Active 05/29/2016 [facility] Ceftriaxone 1 gm, Route: IVPB, Drug form: PDR/INJ, ONCE, Dosing Weight 63.636, kg, Priority: STAT, Start date: 05/28/16 23:04:00 CDT, Stop date: 05/28/16 23:04:00 CDT Inactive 05/29/2016 [facility] Ondansetron 4 mg, Route: IVP, Drug form: INJ, ONCE, Dosing Weight 63.636, kg, Priority: STAT, Start date: 05/28/16 22:22:00 CDT, Stop date: 05/28/16 22:22:00 CDT Inactive 05/29/2016 [facility] Morphine 4 mg, Route: IVP, ONC E, Dosing Weight 63.636, kg, Priority: STAT, Start date: 05/28/16 22:22:00 CDT, Stop date: 05/28/16 22:22:00 CDT Inactive 05/29/2016 [facility] Ondansetron 4 mg, Route: IVP, Drug form: INJ, ONCE, Dosing Weight 63.636, kg, Priority: STAT, Start date: 05/28/16 20:49:00 CDT, Stop date: 05/28/16 20:49:00 CDT Inactive 05/29/2016 [facility] Morphine 4 mg, Route: IVP, ONC E, Dosing Weight 63.636, kg, Priority: STAT, Start date: 05/28/16 20:49:00 CDT, Stop date: 05/28/16 20:49:00 CDT Inactive 05/29/2016 [facility] Saline Flush 0.9% Notes: (Same as: BD Posiflush) No Longer Active 05/28/2016 [facility] Lovenox 40 mg/0.4 mL subcutaneous solution 40 mg, SUB-Q, Daily, 5 mL, Substitution Allowed SUB-Q Active [place]a iner 07/15/2011 [facility] nt Lovenox 80 mg, Route: SUB-Q, O NCE, Start date: 07/15/11 0:07:00, Stop date: 07/15/11 0:07:00 SUB-Q No Longer Active [place] 07/15/2011 [facility] hydromorphone 0.5 mg, 0.25 mL, Route: IVP, Drug form: INJ, ONCE, Priority: STAT, Start date: 07/15/11 0:02:00, Stop date: 07/15/11 0:02:00 IVP No Longer Active [place] 07/15/2011 [facility] Coumadin 10 mg oral tablet 10 mg, 1 tab, PO, Daily, 30 tab, Substitution Allowed, TAB PO Active [facility] iner 07/15/2011 [facility] nt Lovenox 80 mg/0.8 mL subcutaneous solution 80 mg, 0.8 ml, SUB-Q, Daily, 4 mL, Substitution Allowed, SOLN SUB-Q Active [place] 07/15/2011 [facility] Lovenox 80 mg, 0.8 mL, Route: IV, Drug form: INJ, ONCE, Start date: 07/14/11 23:02:00, Stop date: 07/14/11 23:02:00 IV No Longer Active [place] 07/15/2011 [facility] ondansetron 4 mg, 2 mL, Route: IVP, Drug form: INJ, ONCE, Priority: STAT, Start date: 07/14/11 20:30:00, Stop date: 07/14/11 20:30:00 IVP No Longer Active [place] 07/15/2011 [facility] [place] 5/325 oral tablet 2 tab, Route: PO, Drug Form: TAB, ONCE, Start date: 07/14/11 19:23:00, Stop date: 07/14/11 19:23:00 PO No Longer Active [place] [facility] Benadryl Substitution Allowed Active 07/14/2011 [facility] nter Unknown Home Medication Substi tution Allowed Active 07/14/2011 [facility] Dilantin Substitution Allowed Active 07/14/2011 [facility] nter Zanaflex Substitution Allowed Active 07/14/2011 [facility] nter Unknown Home Medication Substi tution Allowed Active 07/14/2011 [facility] Lyrica Substitution Allowed Active 07/14/2011 [facility] nt Unknown Home Medication Substi tution Allowed Active 07/14/2011 [facility] ondansetron 4 mg, Route: IVP, Drug form: INJ, ONCE, Priority: STAT, Start date: 07/14/11 18:16:00, Stop date: 07/14/11 18:16:00 IVP No Longer Active [place] 06/20 [facility] aspirin 325 mg tablet 325 mg, 1 tab, Route: PO, Drug form: TAB, ONCE, Priority: STAT, Start date: 07/14/11 17:49:00, Stop date: 07/14/11 17:49:00 PO No Longer Active [place] 07/14/2011 [facility] nter hydromorphone 1 mg, 0.5 mL, Ro yuly: IVP, Drug form: INJ, ONCE, Priority: STAT, Start date: 07/14/11 17:28:00, Stop date: 07/14/11 17:28:00 IVP No Longer Active [place] 07/14/2011 [facility] influenza virus vaccine, inactivated 0.5 mL, Route: IM, Drug Form: SUSP, Start date: 05/31/11 9:00:00, Stop date: 05/31/11 9:00:00 IM No Longer Active [place] 05/20 [facility] Allergies, Adverse Reactions, Alerts Substance Category Reaction Severity Reaction type Status Date Reported Comments Source prochlorperazine Assertion Drug allergy Active [facility] Immunizations Immunization Date Given Site Status Last Updated Comments Source influenza virus vaccine, inactivated 11/29/2011 Right deltoid completed [facility] influenza virus vaccine, inactivated 05/31/2011 Not Given [facility] Results Order Name Results Value Reference Range Date Interpretation Comments Source URINE AND STOOL UA Urobilinogen <=1.0 mg/dL 0.1 - 1.0 07/09/2018 [facility] URINE AND STOOL UA Spec Grav 1.026 <=1.030 07/09/2018 [facility] URINE AND STOOL UA Glucose Negative mg/dL Negative mg/dL 07/09/[address] [facility] [address] URINE AND STOOL UA Protein Negative mg/dL Negative mg/dL 07/09/[address] [facility] [address] URINE AND STOOL UA Blood Moderate *ABN* (07/09/18 5:29 PM) Negative 07/09/2018 [facility] URINE AND STOOL UA pH 6.0 5.0 - 8.0 07/09/2018 [facility] URINE AND STOOL UA Nitrite Negative (07/09/18 5:29 PM) Negative 07/09/2018 [facility] URINE AND STOOL UA Ketones Negative mg/dL Negative mg/dL 07/09/[address] [facility] URINE AND STOOL UA Bili [...] Bacteria Moderate /HPF None Seen /HPF 07/09/[address] [facility] [address] URINE AND STOOL UA Mucus [...] Negative 07/09/2018 [facility] URINE AND STOOL UA [place] Yeast Many /HPF None Seen /HPF 07/09/2018 [facility] URINE AND STOOL UA Ketones Negative mg/dL Negative mg/dL 07/09/[address] [facility] URINE AND STOOL UA Bili Negative *NA* (07/09/18 4:13 PM) Negative 07/09/2018 [facility] URINE AND STOOL UA Glucose 50 mg/dL Negative mg/dL 07/09/2018 [facility] URINE AND STOOL UA Protein 100 mg/dL Negative mg/dL 07/09/2018 [facility] URINE AND STOOL UA Spec Grav 1.043 <=1.030 07/09/2018 [facility] URINE AND STOOL UA Turbidity Marked *ABN* (07/09/18 4:13 PM) Clear 07/09/2018 [facility] URINE AND STOOL UA pH 6.0 5.0 - 8.0 07/09/2018 [facility] CARDIAC ENZYMES Troponin-I <0.02 0.00 - 0.40 07/09/2018 [facility] CHEM PANEL Phosphorus 3.5 2.5 - 4.5 07/09/2018 [facility] CHEM PANEL Magnesium Lvl 2.5 1.8 - 2.4 07/09/2018 [facility] CHEM PANEL Bili Indirect 0.3 0.0 - 1.0 07/09/2018 [facility] CHEM PANEL Bili Direct 0.1 0.0 - 0.3 07/09/2018 [facility] CHEM PANEL Alk Phos 83 39 - 136 07/09/2018 [facility] CHEM PANEL Bili Total 0.4 0.2 - 1.3 07/09/2018 [facility] CHEM PANEL AST 21 0 - 37 07/09/2018 [facility] CHEM PANEL Albumin Lvl 3.0 3.5 - 5.0 07/09/2018 [facility] CHEM PANEL Globulin 4.3 2.7 - 4.2 07/09/2018 [facility] CHEM PANEL A/G Ratio 0.7 0.7 - 1.6 07/09/2018 [facility] CHEM PANEL ALT 24 0 - 65 07/09/2018 [facility] CHEM PANEL Total Protein 7.3 6.4 - 8.4 07/09/2018 [facility] ELECTROLYTES AGAP 12.5 10.0 - 20.0 07/09/2018 [facility] ELECTROLYTES eGFR 88 07/09/2018 Result Comment: [...] should be multiplied by the estimated BMI. [facility] ELECTROLYTES CO2 24 24 - 32 07/09/2018 [facility] ELECTROLYTES Calcium Lvl 8.4 8.5 - 10.5 07/09/2018 [facility] ELECTROLYTES Potassium Lvl 3.5 3.5 - 5.1 07/09/2018 [facility] ELECTROLYTES Chloride Lvl 105 95 - 109 07/09/2018 [facility] ELECTROLYTES Creatinine Lvl 0.7 4 0.50 - 1.40 07/09/2018 [facility] ELECTROLYTES Sodium Lvl 138 135 - 145 07/09/2018 [facility] ELECTROLYTES Glucose Lvl 121 70 - 99 07/09/2018 [facility] ELECTROLYTES BUN 17 7 - 22 07/09/2018 [facility] HEMATOLOGY Basophils # 0.1 0.0 - 0.2 07/09/2018 [facility] HEMATOLOGY Eosinophils # 0.4 0.0 - 0.5 07/09/2018 [facility] HEMATOLOGY Basophils 1.0 0.0 - 1.0 07/09/2018 [facility] HEMATOLOGY Neutrophils # 3.7 1.5 - 8.1 07/09/2018 [facility] HEMATOLOGY Lymphocytes # 2.5 1.0 - 5.5 07/09/2018 [facility] HEMATOLOGY Monocytes # 0.5 0.0 - 0.8 07/09/2018 [facility] HEMATOLOGY Lymphocytes 35.3 20.0 - 40.0 07/09/2018 [facility] HEMATOLOGY Monocytes 6.8 2.0 - 12.0 07/09/2018 [facility] HEMATOLOGY Eosinophils 6.1 0.0 - 4.0 07/09/2018 [facility] HEMATOLOGY Segs 50.8 45.0 - 75.0 07/09/2018 [facility] MPV 8.2 7.4 - 10.4 07/09/2018 [facility] Platelet 241 133 - 450 07/09/2018 [facility] HEMATOLOGY MCV 95.2 80.0 - 98.0 07/09/2018 [facility] HEMATOLOGY MCH 32.3 27.0 - 31.0 07/09/2018 [facility] HEMATOLOGY Hct 37.1 36.0 - 48.0 07/09/2018 [facility] HEMATOLOGY Hgb 12.6 12.0 - 16.0 07/09/2018 [facility] MCHC 33.9 32.0 - 36.0 07/09/2018 [facility] RDW 13.8 11.5 - 14.5 07/09/2018 [facility] HEMATOLOGY WBC 7.2 3.7 - 10.4 07/09/2018 [facility] HEMATOLOGY RBC 3.90 4.20 - 5.40 07/09/2018 [facility] LIPIDS VLDL 28 07/09/2018 [facility] LIPIDS LDL (Calculated) 102 <=99 mg/dL 07/09/2018 [facility] LIPIDS Trig 141 <=149 mg/dL 07/09/2018 [facility] LIPIDS HDL 50 >=61 mg/dL 07/09/2018 [facility] LIPIDS Chol 180 <=199 mg/dL 07/09/2018 [facility] LIPIDS CHD Risk 3.60 3.90 - 5.80 07/09/2018 [facility] CARDIAC ENZYMES Troponin-I <0.02 0.00 - 0.40 07/09/2018 [facility] CARDIAC ENZYMES Troponin-I <0.02 0.00 - 0.40 07/08/2018 [facility] CARDIAC ENZYMES CK MB <1.0 0.5 - 3.6 07/08/2018 [facility] CARDIAC ENZYMES Total CK 96 12 - 191 07/08/2018 [facility] CARDIAC ENZYMES BNP 9 <=100 pg/mL 07/08/2018 [facility] CARDIAC ENZYMES CK MB Index <1.0 0.0 - 2.5 07/08/2018 [facility] CHEM PANEL eGFR 66 07/08/2018 Result [...] B/C Ratio 15 6 - 25 07/08/2018 [facility] CHEM PANEL Alk Phos 91 39 - 136 07/08/2018 [facility] CHEM PANEL Bili Total 0.2 0.2 - 1.3 07/08/2018 [facility] CHEM PANEL AGAP 9.4 10.0 - 20.0 07/08/2018 [facility] CHEM PANEL A/G Ratio 0.7 0.7 - 1.6 07/08/2018 [facility] CHEM PANEL Total Protein 8.3 6.4 - 8.4 07/08/2018 [facility] CHEM PANEL Calcium Lvl 8.7 8.5 - 10.5 07/08/2018 [facility] CHEM PANEL AST 19 0 - 37 07/08/2018 [facility] CHEM PANEL Albumin Lvl 3.4 3.5 - 5.0 07/08/2018 [facility] CHEM PANEL ALT 26 0 - 65 07/08/2018 [facility] CHEM PANEL Sodium Lvl 139 135 - 145 07/08/2018 [facility] CHEM PANEL Creatinine Lvl 0.93 0.50 - 1.40 07/08/2018 [facility] HEMATOLOGY PTT 30.1 22.9 - 35.8 07/08/2018 [facility] HEMATOLOGY INR 1.39 0.85 - 1.17 07/08/2018 [facility] HEMATOLOGY PT 16.8 12.0 - 14.7 07/08/2018 [facility] HEMATOLOGY MPV 8.3 7.4 - 10.4 07/08/2018 [facility] HEMATOLOGY Platelet 271 133 - 450 07/08/2018 [facility] HEMATOLOGY RDW 13.8 11.5 - 14.5 07/08/2018 [facility] HEMATOLOGY MCV 94.2 80.0 - 98.0 07/08/2018 [facility] HEMATOLOGY Hgb 13.4 12.0 - 16.0 07/08/2018 [facility] Hct 39.1 36.0 - 48.0 07/08/2018 [facility] MCHC 34.2 32.0 - 36.0 07/08/2018 [facility] MCH 32.2 27.0 - 31.0 07/08/2018 [facility] RBC 4.15 4.20 - 5.40 07/08/2018 [facility] WBC 10.0 3.7 - 10.4 07/08/2018 [facility] HEMATOLOGY Monocytes # 0.5 0.0 - 0.8 07/08/2018 [facility] HEMATOLOGY Neutrophils # 6.2 1.5 - 8.1 07/08/2018 [facility] HEMATOLOGY Eosinophils # 0.4 0.0 - 0.5 07/08/2018 [facility] HEMATOLOGY Lymphocytes # 2.8 1.0 - 5.5 07/08/2018 [facility] Basophils # 0.1 0.0 - 0.2 07/08/2018 [facility] Lymphocytes 28.2 20.0 - 40.0 07/08/2018 [facility] Eosinophils 4.2 0.0 - 4.0 07/08/2018 [facility] Basophils 0.7 0.0 - 1.0 07/08/2018 [facility] Segs 61.6 45.0 - 75.0 07/08/2018 [facility] Monocytes 5.3 2.0 - 12.0 07/08/2018 [facility] URINE AND STOOL UA Urobilinogen <=1.0 mg/dL 0.1 - 1.0 05/29/2016 [facility] URINE AND STOOL UA Bacteria Many /HPF None Seen /HPF 05/29/2016 [facility] URINE AND STOOL UA Mucus Few /LPF None Seen /LPF 05/29/2016 [facility] URINE AND STOOL UA Bili Negative *NA* (05/28/16 9:30 PM) Negative 05/29/2016 [facility] URINE AND STOOL UA Blood Large *ABN* (05/28/16 9:30 PM) Negative 05/29/2016 [facility] URINE AND STOOL UA Ketones Negative mg/dL Negative mg/dL 05/29/2016 [facility] URINE AND STOOL UA Turbidity Marked *ABN* (05/28/16 9:30 PM) Clear 05/29/2016 [facility] URINE AND STOOL UA Color Yellow *NA* (05/28/16 9:30 PM) Yellow 05/29/2016 [facility] URINE AND STOOL UA Spec Grav 1.018 <=1.030 05/29/2016 [facility] URINE AND STOOL UA Glucose Negative mg/dL Negative mg/dL 05/29/2016 [facility] URINE AND STOOL UA pH 6.0 5.0 - 8.0 05/29/2016 [facility] URINE AND STOOL UA Protein 30 mg/dL Negative mg/dL 05/29/2016 [facility] URINE AND STOOL UA WBC 10 0 - 5 05/29/2016 [facility] URINE AND STOOL UA RBC >182 0 - 2 05/29/2016 [facility] URINE AND STOOL UA Nitrite Positive *ABN* (05/28/16 9:30 PM) Negative 05/29/2016 [facility] URINE AND STOOL UA Leuk Est Large *ABN* (05/28/16 9:30 PM) Negative 05/29/2016 [facility] URINE AND STOOL UA Sq Epi Many /LPF Few /LPF 05/29/2016 [facility] CARDIAC ENZYMES Troponin-I <0.02 0.00 - 0.40 05/28/2016 [facility] CARDIAC ENZYMES Total CK 141 12 - 191 05/28/2016 [facility] CARDIAC ENZYMES CK MB 1.8 0.5 - 3.6 05/28/2016 [facility] CARDIAC ENZYMES CK MB Index 1.3 0.0 - 2.5 05/28/2016 [facility] CHEM PANEL eGFR 70 05/28/2016 Result [...] should be multiplied by the estimated BMI. [facility] CHEM PANEL AST 15 0 - [...] Alk Phos 90 39 - 136 05/28/2016 [facility] CHEM PANEL Glucose Lvl 152 70 - 99 05/28/2016 [facility] CHEM PANEL Potassium Lvl 3.3 3.5 - 5.1 05/28/2016 [facility] CHEM PANEL Chloride Lvl 104 95 - 109 05/28/2016 [facility] CHEM PANEL Sodium Lvl 141 135 - 145 05/28/2016 [facility] CHEM PANEL CO2 23 24 - 32 05/28/2016 [facility] CHEM PANEL Creatinine Lvl 0.90 0.50 - 1.40 05/28/2016 [facility] CHEM PANEL BUN 22 7 - 22 05/28/2016 [facility] CHEM PANEL Lipase Lvl 83 73 - 393 05/28/2016 [facility] HEMATOLOGY RDW 13.3 11.5 - 14.5 05/28/2016 [facility] HEMATOLOGY Platelet 258 133 - 450 05/28/2016 [facility] HEMATOLOGY MPV 8.2 7.4 - 10.4 05/28/2016 [facility] HEMATOLOGY MCHC 34.2 32.0 - 36.0 05/28/2016 [facility] HEMATOLOGY MCH 31.6 27.0 - 31.0 05/28/2016 [facility] HEMATOLOGY Hgb 13.3 12.0 - 16.0 05/28/2016 [facility] HEMATOLOGY MCV 92.4 80.0 - 98.0 05/28/2016 [facility] HEMATOLOGY Hct 38.9 36.0 - 48.0 05/28/2016 [facility] HEMATOLOGY RBC 4.21 4.20 - 5.40 [...] HEMATOLOGY Monocytes 5.6 2.0 - 12.0 05/28/2016 [facility] CHEMISTRY Lipase Lvl 107 73 - 393 07/14/2011 Normal [facility] CHEMISTRY Total CK 39 12 - 191 07/14/2011 [facility] [facility] CHEMISTRY Troponin-I <0.02 0.00 - 0.40 07/14/2011 Normal [facility] CHEMISTRY Myoglobin 10 25 - 72 07/14/2011 LOW [facility] CHEMISTRY Chloride Lvl 102 95 - 109 07/14/2011 Normal [facility] CHEMISTRY BUN 18 7 - 22 07/14/2011 Normal [facility] CHEMISTRY Glucose Lvl 95 70 - 99 07/14/2011 Normal <sup>1</sup>Interpretive Data: Adult ref erence range values reflect the clinical guidelines of the [place] [employer]. [facility] CHEMISTRY CO2 25 24 - 32 07/14/2011 Normal [facility] CHEMISTRY Calcium Lvl 9.0 8.5 - 10.5 07/14/2011 Normal [facility] CHEMISTRY Creatinine Lvl 0.7 0.5 - 1.4 07/14/2011 Normal [facility] CHEMISTRY Sodium Lvl 139 135 - 145 07/14/2011 Normal [facility] CHEMISTRY Potassium Lvl 4.2 3.5 - 5.1 07/14/2011 Normal [facility] CHEMISTRY AGAP 16.2 10.0 - 20.0 07/14/2011 Normal [facility] CHEMISTRY Etoh (%) <0.003 07/14/2011 NA <sup>2</sup>Interpretive Data: Negative Range: <0.003% Toxic Range: >0.25% [facility] CHEMISTRY Ethanol Lvl <3 07/14/2011 NA <sup>3</sup>Interpretive Data: Negative Range: <3 mg/dL Toxic Range: >250 mg/dL [facility] HEMATOLOGY Platelet 286 133 - 450 07/14/2011 Normal [facility] HEMATOLOGY RDW 13.1 11.5 - 14.5 07/14/2011 Normal [facility] HEMATOLOGY MCHC 34.3 32.0 - 36.0 07/14/2011 Normal [facility] HEMATOLOGY MPV 8.0 7.4 - 10.4 07/14/2011 Normal [facility] HEMATOLOGY Hgb 13.6 12.0 - 16.0 07/14/2011 Normal [facility] HEMATOLOGY MCH 31.7 27.0 - 31.0 07/14/2011 HI [facility] HEMATOLOGY MCV 92.5 81.0 - 99.0 07/14/2011 Normal [facility] HEMATOLOGY Hct 39.7 36.0 - 48.0 07/14/2011 Normal [facility] HEMATOLOGY RBC 4.29 4.20 - 5.40 07/14/2011 Normal [facility] HEMATOLOGY WBC 14.1 3.7 - 10.4 07/14/2011 [facility] HEMATOLOGY INR 0.93 0.85 - 1.17 07/14/2011 Normal <sup>4</sup>Interpretive Data: RECOMMEND ED RANGES FOR PROTIME INR: 2.0-3.0 for most medical and surgical thromboembolic states. 2.5-3.5 for artificial heart valves and recurrent embolism. INR SHOULD BE USED ONLY FOR PATIENTS ON STABLE ANTICOAGULANT THERAPY. [facility] HEMATOLOGY PTT 22.9 22.9 - 35.8 07/14/2011 Normal <sup>5</sup>Interpretive Data: Heparin T herapeutic Range: 57 - 92 Seconds [facility] HEMATOLOGY PT 12.5 12.0 - 14.7 07/14/2011 Normal [facility] HEMATOLOGY Plt Morph Leanne l (07/14/2011 17:29:00) 07/14/2011 Normal [facility] HEMATOLOGY RBC Morph Leanne l (07/14/2011 17:29:00) 07/14/2011 Normal [facility] HEMATOLOGY Segs-Bands # 10.5 1.5 - 8.1 07/14/2011 HI [facility] HEMATOLOGY Lymphocytes # 2.9 1.0 - 5.5 07/14/2011 Normal [facility] HEMATOLOGY Basophils # 0.0 0.0 - 0.2 07/14/2011 [facility] HEMATOLOGY Eosinophils # 0.2 0.0 - 0.5 07/14/2011 [facility] HEMATOLOGY Basophils 0.0 0.0 - 1.0 07/14/2011 [facility] HEMATOLOGY Eosinophils 1.6 0.0 - 4.0 07/14/2011 [facility] HEMATOLOGY Monocytes 3.9 2.0 - 12.0 07/14/2011 [facility] HEMATOLOGY Lymphocytes 20.3 20.0 - 40.0 07/14/2011 [facility] HEMATOLOGY Monocytes # 0.5 0.0 - 0.8 07/14/2011 [facility] HEMATOLOGY Segs 74.2 45.0 - 75.0 07/14/2011 [facility] IMMUNOLOGY CDC-HIV 1/2 Ab Negat capo *NA* (07/14/2011 16:52:00) Negati ve 07/14/2011 NA [facility] Pathology Reports No Data Provided for This [...] to patient size -Use of iterative reconstruction technChumen Wenwen ue CT Radiation Dose DLP 358.86 mGy-cm [...] mass or fluid collection. SL: BMUSTAFMelvina 07/09/2018 [facility] Chest 2 views DX Patient Name: JESUS ASCENCIO : 1955; Age: 63 years Female MR: [id number] Study: Chest 2 views DX Order Time: [...] represent mild pulmonary edema or pneumonia. SL: [id number] 07/08/2018 [facility] Ext Upper Venous Doppler Unilat US [...] right upper extremity DVT. SL: MADDI 07/08/2018 [facility] Chest Pulmonary Embolism CTA Patient Name: JESUS ASCENCIO : 1955; Age: 63 years y/o Female MR: [id number] * COMPUTED TOMOGRAPHY SCAN OF THE CHEST [...] lower superior vena cava. SL: MARYANN 07/08/2018 [facility] Shoulder series DX Exam: Right Shoulder [...] joint degenerative arthr opathy. SL: JCHILD-PC 01/12/2018 [facility] Brain wo contrast CT CT HEAD [...] of acute intracranial abnormality. SL: UKUDRATH-M 01/10/2018 [facility] Ext Upper Venous Doppler Unilat US [...] Negative right upper extremity venous Doppler. SL: MCHAWMADY-RENETAT 01/10/2018 [facility] Chest Pulmonary Embolism CTA CT ANGIOGRAM [...] to patient size -Use of iterative reconstruction technChumen Wenwen ue CT Radiation Dose DLP 986 mGy-cm [...] or pleural spaces are detected. 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 SL: JANUARY 01/10/2018 [facility] Pulmonary Embolism CTA Clinical Indication: Shortness [...] pleural effusion or pneumothorax. SL: KPATEL-M 05/29/2016 [facility] ED Abdomen/Pelvis IV contrast only CT Patient Name: JESUS ASCENCIO : 1955; Age: 61 years y/o Female MR: [id number] Study: ED Abdomen/Pelvis IV contrast only CT [...] of the pancreas. A few scattered colo cheep diverticula are present at the abdomen associated [...] 2). 7. Diffuse fatty infiltration of the demetrius er and pancreas. 8. Lower lumbar facet arthrosis. SL: PJOHNSROLANDO 05/29/2016 [facility] Chest 1view DX Study: Chest 1v iew DX 05/28/2016 5:54 PM CDT Patient Name: JESUS ASCENCIO MR: [id number] : 1955; Age: 61 years y/o Female [...] as above discus sed. SL: TPAINTER-PC 05/28/2016 [facility] Consultation Notes No Data Provided for This Section Discharge Summaries No Data Provided for This Section History and Physicals No Data Provided for This Section Vital Signs Vital Sign Value Date Comments Source Temperature Oral (F) 98.3 F 07/09/2018 [facility] Heart Rate 63 07/09/2018 [facility] Respitory Rate 18 07/09/2018 [facility] Systolic (mm Hg) 125 07/09/2018 [facility] Diastolic (mm Hg) 83 07/09/2018 [facility] Respitory Rate 17 07/09/2018 [facility] Heart Rate 58 07/09/2018 [facility] Systolic (mm Hg) 100 07/09/2018 [facility] Diastolic (mm Hg) 65 07/09/2018 [facility] Temperature Oral (F) 98.2 F 07/09/2018 [facility] Systolic (mm Hg) 92 07/09/2018 [facility] Diastolic (mm Hg) 64 07/09/2018 [facility] Temperature Oral (F) 97.9 F 07/09/2018 [facility] Respitory Rate 17 07/09/2018 [facility] Heart Rate 61 07/09/2018 [facility] BMI Calculated 28.4 07/09/2018 [facility] Weight 72.727 07/09/2018 [facility] Height 160.02 cm 07/09/2018 [facility] BMI Calculated 28.4 07/08/2018 [facility] Weight 72.727 07/08/2018 [facility] Height 160.02 cm 07/08/2018 [facility] Temperature Oral (F) 98.4 F 05/29/2016 [facility] Systolic (mm Hg) 117 05/29/2016 [facility] Diastolic (mm Hg) 61 05/29/2016 [facility] Respitory Rate 16 05/29/2016 [facility] Systolic (mm Hg) 127 05/29/2016 [facility] Diastolic (mm Hg) 65 05/29/2016 [facility] Respitory Rate 15 05/29/2016 [facility] Heart Rate 60 05/29/2016 [facility] Respitory Rate 15 05/29/2016 [facility] Systolic (mm Hg) 144 05/29/2016 [facility] Diastolic (mm Hg) 67 05/29/2016 [facility] Height 160.02 cm 05/28/2016 [facility] BMI Calculated 24.85 05/28/2016 [facility] Weight 63.636 05/28/2016 [facility] Temperature Oral (F) 98.6 F 05/28/2016 [facility] Heart Rate 77 05/28/2016 [facility] Height 160.02 cm 07/14/2011 [facility] Weight 72.727 07/14/2011 [facility] Encounters Location Location Details Encounter Type Encounter Number Reason For Visit Attending Provider ADM Date DC Date Status Source [facility] Emergency [id number] CARA JOSEPHLAND 07/14/2011 07/15/2011 Discharged [facility] Emergency [id number] Eugene Alvarez 05/28/2016 05/29/2016 [facility] Observation [id number] Donald Barrett Jr 07/08/2018 07/10/2018 [facility] Procedures Procedure Code Date Perfomer Comments Source section [id number] [facility] st Assessment and Plan Assessment and Plan Date Source Extracted from:Title: Clinical Document Author: Meghann Callaway MD Date: 07/09/18 [facility] Initial Cardiology Consultation Note Reason [...] this morning. Cardiac cottrell she sees a vb developer but cannot remember his name. She has [...] consult. Call with questions. Extracted from:Title: [facility] Small Business Consultant History and Physical Author: Lauryn Cox MD [...] greater than 40 minutes. Lauryn Cox MD Small Business Consultant 07/10/2018 [place] Plan of Care No Data Provided for This Section Social History Social History Date Source Social History TypeResponse Smoking Status Never smoker; Exposure to Tobacco Smoke None; Cigarette Smoking Last 365 Days No; Reg Smoking Cessation Counseling No entered on: 07/08/18 07/09/2018 [facility] Family History No Data Provided for This Section Advance Directives No Data Provided for This Section Functional Status No Data Provided for This Section
--- OUTSIDE RECORDS SUMMARY | 2019-10-27 02:26 | XMS REPORT | Clinical Summary ---
Author Author [facility] Address Unknown Phone Unavailable Care Team Providers Care Rubber Calender Helper Name Role Phone Rayray Anderson PCP Allergies [...] Added automatically from request for laurent dominguezery [id number] Hematemesis, presence of nausea not specified 2018 Overview: Added automatically from request for laurent dominguezery [id number] Coronary artery disease Diabetes mellitus Hyperlipidemia Hypertension [...] Not on file Results Not on fileafter 10/26/2018 Insurance Payer Benefit Subscriber ID Type Phone Address Plan / Group [employer] Contracted ALL Advance Directives For more information, please contact: [address] [address] Date Inactivated Comments Code Status Date Activated 06/03/2018 11:35 PM Full Code 05/30/2018 2:52 AM This code status was determined by: Patient
--- OUTSIDE RECORDS SUMMARY | 2019-10-27 02:28 | XMS REPORT | Continuity of Care Document ---
Author Author [facility] t Organization [facility] Address [address] [place] [address] Phone Unavailable Care Team Providers Care Software Packaging Engineer Name Role Phone SEN PERSAUD, MD TELLO PCP ALEXSANDRA JONES Attphys Unavailable Yuri ALANIS Attphys Unavailable Tobias UNGER Attphys Unavailable NIKKO OCONNOR Attphys Unavailable Ramses Barrett Jr Attphys NITIN VAZQUEZ Attphys Unavailable Mariam Fraga Attphys NIKKO OCONNOR Admphys Unavailable Ramses Barrett Jr Admphys DAVID COX Admphys Unavailable Payers Payer Name Policy Type Policy Number Effective Date Expiration Date S cade [employer] [id number] 2018 00:00:00 [facility] [employer] [id number] 1993 00:00:00 Pawel [facility] Problems Condition Name Condition Details Condition Category Status Onset Date Resolution Date Last Treatment Date Treating Clinician Comments Source CHEST PAIN IN ADULT,ARM PAIN,RT,SOB-SHOR CHEST PAIN IN ADULT,ARM PAIN,RT,SOB-SHOR Active 07/08/2018 [facility] Diagnosis Ac tive 2018-07-08 00:00:00 2018-07-11 12:54:00 [facility] [place] VOMITING / ARM PAIN VOMI TING / ARM PAIN Active 07/08/2018 [facility] Diagnosis Active 2018-07-08 00:00:00 2018-07-08 18:10:00 [facility] Dysphagia Dysphagia Disease Active 2018-05-31 00:00:00 [facility] Pyelonephritis Pyelonephritis Disease Active 2018-05-30 00:00:00 [facility] Hematemesis, presence of nausea not specified Hemateme sis, presence of nausea not specified Disease Active 2018-05-29 00:00:00 Overview: Added automatically from request for surgery [id number] [facility] NOSEBLEED/COUGHING UP BLOOD NO SEBLEED/COUGHING UP BLOOD Active 01/10/2018 [facility] Diagnosis Active 2018-01-10 00:00:00 2018-01-10 22:12:00 [facility] COUMADIN TOXICITY COUM FREDDIE TOXICITY Active 01/10/2018 [facility] Diagnosis Active 2018-01-10 00:00:00 2018-05-18 14:04:00 [facility] ABD PAIN ABD PAIN Active 05/28/2016 [facility] Diagnosis Active 2016-05-28 00:00:00 2017-09-13 14:52:00 [facility] Chest pain Chest pain Problem Active 2015-02-13 00:00:00 [facility] Cerebral infarction CVA (cerebral infarction) Problem Active 2014-09-10 00:00:00 [facility] SENT BY SENT BY Active 07/14/2011 [facility] Diagnosis Active 2011-07-14 00:00:00 2011-07-14 18:22:00 Diony Rollins Abdominal pain Abdominal pain Problem Active [facility] Nausea and vomiting Problem Active [facility] Chest wall pain Problem Active [facility] Hyperlipidemia Hyperlipidemia Disease Active [facility] Anxiety Anxi ety Active Problem 07/17/2011 [facility] Problem Active 2011-07-17 08:40:48 Evens rial Ayo Back pain Back pain Active Problem 07/17/2011 [facility] Problem Active 2011-07-17 08:40:48 Diony Rollins Chest pain Ches t pain Active Problem 07/17/2011 [facility] Problem Active 2011-07-17 08:40:48 Diony Rollins Deep vein thrombosis Deep vein thrombosis Active Problem 07/17/2011 [facility] Problem Active 2011-07-17 08 :40:48 Diony Rollins Depression Depr ession Active Problem 07/17/2011 [facility] Problem Active 2011-07-17 08:40:48 Diony Rollins Dysmenorrhea Dysm enorrhea Active Problem 07/17/2011 [facility] Problem Active 2011-07-17 08:40:48 Diony Rollins Fracture of knee-cap Frac ture of knee-cap Active Problem 07/17/2011 [facility] Problem Active 2011-07-17 08 :40:48 Diony Rollins Hay fever Hay fever Active Problem 07/17/2011 [facility] Problem Active 2011-07-17 08:40:48 Diony Rollins Incontinence Inco ntinence Active Problem 07/17/2011 [facility] Problem Active 2011-07-17 08:40:48 Diony Rollins Migraine Migr olaf Active Problem 07/17/2011 [facility] Problem Active 2011-07-17 08:40:48 [facility] orial Ayo Nausea and vomiting Naus ea and vomiting Active Problem 07/17/2011 [facility] Problem Active 2011-07-17 08 :40:48 Diony Rollins Neck pain Neck pain Active Problem 07/17/2011 [facility] Problem Active 2011-07-17 08:40:48 Diony Rollins Osteoarthritis Oste oarthritis Active Problem 07/17/2011 [facility] Problem Active 2011-07-17 08:40:48 Diony Rollins Panic disorder Marion c disorder Active Problem 07/17/2011 [facility] Problem Active 2011-07-17 08:40:48 Diony Rollins Pulmonary embolism Pulm onary embolism Active Problem 07/17/2011 [facility] Problem Active 2011-07-17 08 :40:48 Diony Rollins Seizure Seiz ure Active Problem 07/17/2011 [facility] Problem Active 2011-07-17 08:40:48 Evens Rollins Shoulder pain Shou lder pain Active Problem 07/17/2011 [facility] Problem Active 2011-07-17 08:40:48 Diony Rollins Stroke Stro ke Active Problem 07/17/2011 [facility] Problem Active 2011-07-17 08:40:48 Evens Rollins Suicide attempt Suic chad attempt Active Problem 07/17/2011 [facility] Problem Active 2011-07-17 08:40:48 Diony Rollins UTI - Urinary tract infection UTI - Urinary tract infection Active Problem 07/17/2011 [facility] Problem Active 2011-07-17 08:40:48 Diony Rollins Anxiety (finding) Anxi ety (finding) Active Problem 07/11/2018 [facility] Problem Active 2018-07-11 23:56:43 Diony Rollins Backache (finding) Back ache (finding) Active Problem 07/11/2018 [facility] Problem Active 2018-07-11 23:56:43 Diony Rollins Deep venous thrombosis (disorder) Deep venous thrombosis (disorder) Active Problem 07/11/2018 [facility] Problem Active 2018-07-11 23:56:43 Diony Rollins Depressive disorder (disorder) Depressive disorder (disorder) Active Problem 07/11/2018 [facility] Problem Active 2018-07-11 23:56:43 Diony Rollins Diabetes mellitus (disorder) D iabetes mellitus (disorder) Active Problem 07/11/2018 [facility] Problem Active 2018-07-11 23:56:43 Diony Rollins Dysmenorrhea (disorder) Dysm enorrhea (disorder) Active Problem 07/11/2018 [facility] Problem Active 2018-07-11 23:56:4 3 Diony Rollins Epilepsy (disorder) Epil epsy (disorder) Active Problem 07/11/2018 [facility] Problem Active 2018-07-11 23:56:43 Diony Rollins Fracture of patella (disorder) Fracture of patella (disorder) Active Problem 07/11/2018 [facility] Problem Active 2018-07-11 23:56:43 Diony Rollins Allergic rhinitis due to pollen (disorder) Allergic rhinitis due to pollen (disorder) Active Problem 07/11/2018 [facility] Problem Active 2018-07-11 23:56:43 Andrade Rollins Hypertensive disorder, systemic arterial (disorder) Hypertensive disorder, systemic arterial (disorder) Active Problem 07/11/2018 [facility] Problem Active 2018-07-11 23:56:43 [facility] Ayo Incontinence (finding) Inco ntinence (finding) Active Problem 07/11/2018 [facility] Problem Active 2018-07-11 23:56:4 3 [facility] Ayo Malignant tumor of colon (disorder) Malignant tumor of colon (disorder) Active Problem 07/11/2018 [facility] Problem Active 2018-07-11 23:56:43 [facility] Ayo Migraine (disorder) Migr olaf (disorder) Active Problem 07/11/2018 [facility] Problem Active 2018-07-11 23:56:43 [facility] Ayo Neck pain (finding) Neck pain (finding) Active Problem 07/11/2018 [facility] Problem Active 2018-07-11 23:56:43 [facility] Ayo Osteoarthritis (disorder) Oste oarthritis (disorder) Active Problem 07/11/2018 [facility] Problem Active 2018-07-11 23:5 6:43 [facility] Ayo Panic disorder (disorder) Marion c disorder (disorder) Active Problem 07/11/2018 [facility] Problem Active 2018-07-11 23:5 6:43 Diony Rollins Pulmonary embolism (disorder) Pulmonary embolism (disorder) Active Problem 07/11/2018 [facility] Problem Active 2018-07-11 23:56:43 [facility] Ayo Seizure (finding) Seiz ure (finding) Active Problem 07/11/2018 [facility] Problem Active 2018-07-11 23:56:43 [facility] Ayo Shoulder pain (finding) Shou lder pain (finding) Active Problem 07/11/2018 [facility] Problem Active 2018-07-11 23:56:4 3 [facility] Ayo Sleep apnea (finding) Slee p apnea (finding) Active Problem 07/11/2018 [facility] Problem Active 2018-07-11 23:56:4 3 Diony Rollins Cerebrovascular accident (disorder) Cerebrovascular accident (disorder) Active Problem 07/11/2018 [facility] Problem Active 2018-07-11 23:56:43 [facility] Ayo Suicide attempt (disorder) [place] attempt (disorder) Active Problem 07/11/2018 [facility] Problem Active 2018-07-11 23:56:43 [facility] Urinary tract infectious disease (disorder) Urinary tract infectious disease (disorder) Active Problem 07/11/2018 [facility] Problem Active 2018-07-11 23:56:43 [facility] Coronary arteriosclerosis (disorder) Coronary arteriosclerosis (disorder) Active Problem 07/11/2018 [facility] Problem Active 2018-07-11 23:56:43 [facility] CHEST PAIN, UNSPECIFIED CHES T PAIN, UNSPECIFIED Active [facility] Diagnosis Active 2018-07-11 12:54:00 [facility] PAIN IN RIGHT ARM PAIN IN RIGHT ARM Active [facility] Diagnosis Active 2018-07-11 12:54:00 [facility] SHORTNESS OF BREATH SHOR TNESS OF BREATH Active [facility] Diagnosis Active 2018-07-11 12:54:00 Ok rolf Rollins POISONING BY ANTICOAGULANTS, ACCIDENTAL, POISONING BY ANTICOAGULANTS, ACCIDENTAL, Active [facility] Diagnosis Active 2018-05-18 14:04:00 [facility] Urinary tract infection, site not specified Urinary tract infection, site not specified 05/29/2016 06/01/2016 [facility] Problem 2016-05-29 05:00:00 2016-06-01 02:33:09 2016-06-01 02:33:09 [facility] Allergies, Adverse Reactions, Alerts Allergy Name Allergy Type Status Severity Reaction(s) Onset Date Inacti ve Date Treating Clinician Comments Source Ceftriaxone Allergy to substance Active Mild HIVES 2019-08-18 00:00:00 [facility] prochlorperazine DA Active U 2019-04-22 00:00:00 [facility] promethazine DA Active U 2019-04-22 00:00:00 [facility] No Known Allergies DA Active U 2019-04-21 00:00:00 [facility] codeine DA Active SV 2018-08-04 00:00:00 [facility] acetaminophen DA Active SV 2018-08-04 00:00:00 [facility] prochlorperazine maleate DA Active [place] 2018-07-30 00:00:00 [facility] ceftriaxone DA Active [place] 2018-07-30 00:00:00 [facility] prochlorperazine maleate DA Active [place] 2018-06-29 00:00:00 [facility] ceftriaxone DA Active [place] 2018-06-29 00:00:00 [facility] Prochlorperazine Edisylate Propensity to adverse reactions Active H[place] 2018-05-29 00:00:00 [facility] No Known Allergies DA Active U 2017-12-26 00:00:00 [facility] prochlorperazine maleate DA Active [place] 2017-10-18 00:00:00 [facility] ceftriaxone DA Active [place] 2017-10-18 00:00:00 [facility] prochlorperazine prochlorperazine Active [facility] Social History Social Habit Start Date Stop Date Quantity Comments Source History SDOH Alcohol Std Drinks [facility] History SDOH Alcohol Binge [facility] Sex Assigned At [facility] History SDOH Alcohol Frequency 2018-05-29 00:00:00 2018-05-29 00:00:0 0 1 [facility] Smoking Status Start Date Stop Date Source Social History [facility] Medications Ordered Medication Name Filled Medication Name Start Date Stop Da te Current Medication? Ordering Clinician Indication Dosage Frequency Signature (SIG) Comments Components Source Dilantin 2018-07-10 02:00:00 No Notes: (Same as: Dilantin) Do not open, crush, or chew. [facility] Phenobarbital 2018-07-10 02:00:00 No Notes: (Same as: [place], [place], [place]) [facility] Lipitor 2018-07-10 02:00:00 No Notes: (Same As: Lipitor) [facility] Acetaminophen 300 MG / Codeine Phosphate 30 MG Oral Tablet [Tylenol with Codeine #3] 2018-07-09 23:18:26 Yes 1 tab, PO, Q6H, PRN Pain, X 7 day, # 28 tab, 0 Refill(s) [facility] Acetaminophen 300 MG / Codeine Phosphate 30 MG Oral Tablet [Tylenol with Codeine #3] 2018-07-09 23:13:00 No 1 tab, PO, Q6H, PRN Pain, X 7 day, # 28 tab, 0 Refill(s), given to patient Andrade Rollins Warfarin 2018-07-09 22:00:00 No Notes: Nurse to ensure documentation of patient education per anticoagulation policy. Avoid large intake of vitamin-K containing foods diet. WASTE: F/P - P Waste Black; E - P Waste Black (Same As: Coumadin) [facility] atorvastatin 10 mg oral tablet 2018-07-09 19:42:00 Yes 20 mg = 2 tab, PO, Bedtime, 0 Refill(s) [facility] fernanda Lyrica 2018-07-09 14:00:00 No Notes: (Same as: Lyrica) [facility] Ayo Dilantin 2018-07-09 14:00:00 No Notes: (Same as: Dilantin) Do not open, crush, or chew. [facility] Omeprazole 2018-07-09 14:00:00 No 20 mg, Route: PO, Daily, Dosing Weight 72.727, kg, Start date: 07/09/18 9:00:00 CDT, Duration: 30 day, Stop date: 08/07/18 9:00:00 CDT [facility] denisse Citalopram 2018-07-09 14:00:00 No 20 mg, 2 tab, Route: PO, Drug form: TAB, Daily, Dosing Weight 72.727, kg, Start date: 07/09/18 9:00:00 CDT, Duration: 30 day, Stop date: 08/07/18 9:00:00 CDT [facility] Saline Flush 0.9% 2018-07-09 14:00:00 No Notes: (Same as: BD Posiflush) [facility] Protonix 2018-07-09 14:00:00 No Notes: Tablet should not be chewed or crushed. (Same as: Protonix) [facility] Phenobarbital 2018-07-09 13:00:00 No Notes: (Same as: Barbita, Luminal, Solfoton) [facility] Morphine 2018-07-09 07:11:00 No Not es: (Same as:MORPhine Sulfate) [facility] Ketorolac 2018-07-09 05:03:00 No 4 days. [facility] Saline Flush 0.9% 2018-07-09 05:02:00 No Notes: (Same as: BD Posiflush) [facility] Nitroglycerin 2018-07-09 05:02:00 No Notes: (Same as:Nitroquick, Nitrostat) "Do Not Crush" Sublingual tablet [facility] pneumococcal capsular polysaccharide typ e 1 vaccine / pneumococcal capsular polysaccharide type 10A vaccine / pneumococcal capsular polysaccharide type 11A vaccine / pneumococcal capsular polysaccharide type 12F vaccine / pneumococcal capsular polysacchar 2018-07-09 04:16:45 No Notes: (Same as: Pneumovax 23) [facility] Ketorolac 2018-07-09 02:35:00 No 15 mg, Route: IVP, Drug form: INJ, ONCE, Dosing Weight 72.727, kg, Priority: STAT, Start date: 07/08/18 21:35:00 CDT, Stop date: 07/08/18 21:35:00 CDT [facility] warfarin (COUMADIN) 5 MG tablet 2018-06-03 00:00:00 Yes Use 5 mg PO daily Sunday through Sunday, use 2.5 mg (1/2 tab of 5 mg) po Sat and Sun. [facility] phenytoin (DILANTIN) 100 MG ER capsule 2018-05-30 13:31:27 Yes 100mg QD Take 100 mg by mouth every morning . [facility] PHENobarbital (LUMINAL) 30 MG tablet 2018-05-30 13:31:27 Ye s 90mg QD Take 90 mg by mouth nightly. [facility] phenytoin (DILANTIN) 100 MG ER capsule 2018-05-30 13:31:26 Yes 300mg QD Take 300 mg by mouth nightly. [facility] PHENobarbital (LUMINAL) 30 MG tablet 2018-05-30 13:31:26 Ye s 30mg QD Take 30 mg by mouth every morning. [facility] insulin glargine (LANTUS) 100 unit/mL injection 2018-05-30 10:09 :50 Yes Inject subcutaneously 3 (three) times daily before devan ls Sliding scale. [facility] tiZANidine (ZANAFLEX) 4 MG tablet 2018-05-30 05:39:51 Yes 4mg Take 4 mg by mouth every 6 (six) hours as needed. [facility] ondansetron (ZOFRAN) 4 MG tablet 2018-05-30 05:39:50 Yes 4mg Take 4 mg by mouth 2 (two) times daily as needed for Nausea. [facility] PARoxetine (PAXIL) 20 MG tablet 2018-05-30 05:39:50 Yes 20mg QD Take 20 mg by mouth every morning. [facility] phenazopyridine (PYRIDIUM) 100 MG tablet 2018-05-30 05:39:50 Yes 100mg Take 100 mg by mouth 3 (three) times daily as needed for Pain. [facility] traMADol (ULTRAM) 50 mg tablet 2018-05-30 05:39:50 Yes 50mg Take 50 mg by mouth every 6 (six) hours as needed for Pain. [facility] pregabalin (LYRICA) 100 MG capsule 2018-05-30 05:39:49 Yes 100mg QD Take 100 mg by mouth daily. [facility] magnesium oxide (MAG-OX) 400 mg (241.3 mg magnesium) tablet 2018-05-30 05:39:49 Yes 400mg QD Take 400 mg by mouth daily. [facility] mesalamine (LIALDA) 1.2 gram EC tablet 2018-05-30 05:39:49 Yes 1200mg Take 1,200 mg by mouth daily with breakfast. [facility] metoclopramide (REGLAN) 5 MG tablet 2018-05-30 05:39:49 Yes 5mg QD Take 5 mg by mouth daily. [facility] nitroglycerin (NITROSTAT) 0.4 MG SL tablet 2018-05-30 05:39:[address] 0.4 mg under the tongue every 5 (f capo) minutes as needed for Chest pain Put 1 pill under tongue every 5min as needed for chest pain.No more than 3 doses in 15min.Call 911 if pain is unrelieved 5min after 1st dose . [facility] insulin 70/30, insulin NPH-insulin regul ar, (HUMULIN 70/30) 100 unit/mL (70-30) InPn insulin pen 2018-05-30 05:39:49 Yes 1U Inject 1-10 Units subcutaneously 2 (two) times daily before meals. [facility] HYDROcodone-acetaminophen (NORCO 10-325) 10-325 mg per table t 2018-05-30 05:22:53 Yes 1{tbl} Take 1 tab let by mouth every 6 (six) hours as needed for Pain. [facility] hydrocortisone 2.5 % cream 2018-05-30 05:22:53 Yes Q.5D Apply topically 2 (two) times daily. [facility] dicyclomine (BENTYL) 20 mg tablet 2018-05-30 05:22:52 Yes 20mg QD Take 20 mg by mouth daily. [facility] diphenhydrAMINE (BENADRYL) 25 mg tablet 2018-05-30 04:28:16 Yes 25mg Take 25 mg by mouth every 4 (four) hours as needed for Itching or Sleep. [facility] Ondansetron Hcl (Zofran*) 4 Mg TABLET Ondansetron Hcl (Zofra n*) 4 Mg TABLET 2018-04-01 07:41:00 Yes 4 Every 4 Hour s as needed for Nausea/Vomiting [facility] Pantoprazole Sodium (Protonix) 40 Mg TABLET. Pantopr azole Sodium (Protonix) 40 Mg TABLET. 2018-04-01 07:41:00 2018-08-11 00:00:00 No 40 Every [address] [facility] tramadol hydrochloride 50 MG Oral Tablet 2016-05-29 07:18:00 Yes 50 mg = 1 tab, PO, Q12H, PRN Pain, X 10 day, # 20 tab, 0 Refill(s) [facility] tramadol hydrochloride 50 MG Oral Tablet 2016-05-29 06:57:00 No 50 mg, Route: PO, Drug form: TAB, ONCE, Dosing Weight 63.636, kg, Priority: STAT, Start date: 05/29/16 1:57:00 CDT, Stop date: 05/29/16 1:57:00 CDT [facility] ciprofloxacin 500 mg oral tablet 2016-05-29 06:39:00 Yes 500 mg = 1 tab, PO, Q12H, X 10 day, # 20 tab, 0 Refill(s) [facility] Diphenhydramine 2016-05-29 04:59:00 No 25 mg, Route: IVP, ONCE, Dosing Weight 63.636, kg, Priority: STAT, Start date: 05/28/16 23:59:00 CDT, Stop date: 05/28/16 23:59:00 CDT Maryellen Rollins Prednisone 2016-05-29 04:59:00 No 60 mg, Route: PO, Drug form: TAB, ONCE, Dosing Weight 63.636, kg, Priority: STAT, Start date: 05/28/16 23:59:00 CDT, Stop date: 05/28/16 23:59:00 CDT Ok rolf Rollins Ciprofloxacin 2016-05-29 04:59:00 No 400 mg, Route: IVPB, ONCE, Dosing Weight 63.636, kg, Priority: STAT, Start date: 05/28/16 23:59:00 CDT, Stop date: 05/28/16 23:59:00 CDT Maryellen Rollins Ceftriaxone 2016-05-29 04:04:00 No 1 gm, Route: IVPB, Drug form: PDR/INJ, ONCE, Dosing Weight 63.636, kg, Priority: STAT, Start date: 05/28/16 23:04:00 CDT, Stop date: 05/28/16 23:04:00 CDT [facility] Ondansetron 2016-05-29 03:22:00 No 4 mg, Route: IVP, Drug form: INJ, ONCE, Dosing Weight 63.636, kg, Priority: STAT, Start date: 05/28/16 22:22:00 CDT, Stop date: 05/28/16 22:22:00 [facility] 2016-05-29 03:22:00 No 4 mg, Route: IVP, ONCE, Dosing Weight 63.636, kg, Priority: STAT, Start date: 05/28/16 22:22:00 CDT, Stop date: 05/28/16 22:22:00 CDT [facility] Ondansetron 2016-05-29 01:49:00 No 4 mg, Route: IVP, Drug form: INJ, ONCE, Dosing Weight 63.636, kg, Priority: STAT, Start date: 05/28/16 20:49:00 CDT, Stop date: 05/28/16 20:49:00 [facility] 2016-05-29 01:49:00 No 4 mg, Route: IVP, ONCE, Dosing Weight 63.636, kg, Priority: STAT, Start date: 05/28/16 20:49:00 CDT, Stop date: 05/28/16 20:49:00 CDT [facility] Saline Flush 0.9% 2016-05-28 22:54:00 No Notes: (Same as: BD Posiflush) [facility] Lovenox 40 mg/0.4 mL subcutaneous solution 2011-07-15 05:1 4:39 Yes Rosie oCllado Jeremy 40 mg, SUB-Q, Daily, 5 mL, Substitution Allowed [facility] Ayo Lovenox 2011-07-15 05:07:00 No Rosie Collado Jeremy 80 mg, Route: SUB-Q, ONCE, Start date: 07/15/11 0:07:00, Stop date: 07/15/11 0:07:00 [facility] hydromorphone 2011-07-15 05:02:00 No Rosie Collado Jeremy 0.5 mg, 0.25 mL, Route: IVP, Drug form: INJ, ONCE, Priority: STAT, Start date: 07/15/11 0:02:00, Stop date: 07/15/11 0:02:00 [facility] mg oral tablet 2011-07-15 04:03:52 Yes Meghan Collado Jeremy 10 mg, 1 tab, PO, Daily, 30 tab, Substitution Allowed, TAB [facility] Ayo Lovenox 80 mg/0.8 mL subcutaneous solution 2011-07-15 04:0 2:57 Yes Rosie Collado Odell 80 mg, 0.8 ml, SUB-Q, Daily, 4 mL, S ubstitution Allowed, SOLN [facility] Ayo Lovenox 2011-07-15 04:02:00 No Rosie L Odell 80 mg, 0.8 mL, Route: IV, Drug form: INJ, ONCE, Start date: 07/14/11 23:02:00, Stop date: 07/14/11 23:02:00 [facility] ondansetron 2011-07-15 01:30:00 No Rosie Matosiner 4 mg, 2 mL, Route: IVP, Drug form: INJ, ONCE, Priority: STAT, Start date: 07/14/11 20:30:00, Stop date: 07/14/11 [facility]:30[facility] 2011-07-15 00:23:00 No Rosie Luna 2 tab, Route: PO, Drug Form: TAB, ONCE, Start date: 07/14/11 19:23:00, Stop date: 07/14/11 19:23:00 [facility] Benadryl 2011-07-14 23:20:37 Yes Substitutio n Allowed [facility] Unknown Home Medication 2011-07-14 23:20:20 Yes Substitution Allowed [facility] Dilantin 2011-07-14 23:20:06 Yes Substitutio n Allowed [facility] Zanaflex 2011-07-14 23:19:59 Yes Substitutio n Allowed [facility] Unknown Home Medication 2011-07-14 23:19:43 Yes Substitution Allowed [facility] Lyrica 2011-07-14 23:19:19 Yes Substitution Allowed [facility] Unknown Home Medication 2011-07-14 23:19:08 Yes Substitution Allowed [facility] ondansetron 2011-07-14 23:16:00 No Marta Iraheta 4 mg, Route: IVP, Drug form: INJ, ONCE, Priority: STAT, Start date: 07/14/11 18:16:00, Stop date: 07/14/11 18:16:00 [facility] aspirin 325 mg tablet 2011-07-14 22:49:00 No Marta Kaplan uford 325 mg, 1 tab, Route: PO, Drug form: TAB, ONCE, Priority: STAT, Start date: 07/14/11 17:49:00, Stop date: 07/14/11 17:49:00 [facility] 2011-07-14 22:28:00 No Marta Iraheta 1 mg, 0.5 mL, Route: IVP, Drug form: INJ, ONCE, Priority: STAT, Start date: 07/14/11 17:28:00, Stop date: 07/14/11 17:28:00 [facility] influenza virus vaccine, inactivated 2011-05-31 14:00:00 No SYSTEM SYSTEM 0.5 mL, Route: IM, Drug Form : SUSP, Start date: 05/31/11 9:00:00, Stop date: 05/31/11 9:00:00 [facility] Hydrocodone Bit/Acetaminophen (Hydrocodon-Acetaminophn 10-325) 1 Each TABLET Hydrocodone Bit/Acetaminophen (Hydrocodon-Acetaminophn 10-325) 1 Each TABLET Yes 1 Every 4 Hours as needed for Pain [facility] Insulin Glargine (Lantus) 100 Units/Ml ML Insulin Glar gine (Lantus) 100 Units/Ml ML Yes Use As Directed [facility] Magnesium Oxide Magnesium Oxide Yes 400 Daily [facility] Pantoprazole Sodium (Protonix) 40 Mg TABLET. Pantopr azole Sodium (Protonix) 40 Mg TABLET. Yes 40 Daily [facility] Paroxetine Hcl Paroxetine Hcl Yes 20 Daily [facility] Phenazopyridine Hcl Phenazopyridine Hcl Yes 100 Before Meals [facility] Phenobarbital Phenobarbital Yes 30 Am [facility] Phenobarbital Phenobarbital Yes 90 Pm [facility] Phenytoin Sodium Extended (Dilantin) 100 Mg CAPSULE Ph enytoin Sodium Extended (Dilantin) 100 Mg CAPSULE Yes 100 Daily [facility] Phenytoin Sodium Extended (Dilantin) 100 Mg CAPSULE Ph enytoin Sodium Extended (Dilantin) 100 Mg CAPSULE Yes 300 Bedtime [facility] Sertraline Hcl (Zoloft) 50 Mg TABLET Sertraline Hcl (Zoloft) 50 Mg TABLET Yes 50 Daily [facility] Warfarin Sodium (Coumadin) 10 Mg TABLET Warfarin Sodium (Cou madin) 10 Mg TABLET Yes [address] [facility] Zolpidem Tartrate (Ambien) 10 Mg TABLET Zolpidem Tartrate (A mbien) 10 Mg TABLET Yes 10 Bedtime as needed for Insomnia [facility] Oxycodone Hcl (Oxycontin) 30 Mg TAB.ER.12H Oxycodone H cl (Oxycontin) 30 Mg TAB.ER.12H 2018-03-28 00:00:00 No 30 Four Times Da vandana [facility] Rivaroxaban (Xarelto) 10 Mg TABLET Rivaroxaban (Xarelto) 10 Mg T ABLET 2018-03-28 00:00:00 No 10 Daily [facility] Vital Signs Vital Name Observation Time Observation Value Comments Source Weight 2019-09-23 20:24:00 183 [lb_av] [facility] BMI (Body Mass Index) 2019-09-23 20:24:00 32.4 kg/m2 [facility] Body Temperature 2019-08-24 07:58:00 96.7 [degF] [facility] Weight 2019-08-18 21:55:00 183.25 [lb_av] [facility] BMI (Body Mass Index) 2019-08-18 21:55:00 32.5 kg/m2 [facility] Temperature Oral (F) 2018-07-09 20:53:00 98.3 F [facility] Heart Rate 2018-07-09 20:53:00 [facility] Respitory Rate 2018-07-09 20:53:00 [facility] Systolic (mm Hg) 2018-07-09 20:53:00 [facility] [place] Diastolic (mm Hg) 2018-07-09 20:53:00 [facility] Respitory Rate 2018-07-09 16:17:00 [facility] [place] Heart Rate 2018-07-09 16:17:00 [facility] Systolic (mm Hg) 2018-07-09 16:17:00 [facility] Diastolic (mm Hg) 2018-07-09 16:17:00 [facility] Temperature Oral (F) 2018-07-09 16:17:00 98.2 F [facility] Systolic (mm Hg) 2018-07-09 12:09:00 [facility] [place] Diastolic (mm Hg) 2018-07-09 12:09:00 [facility] [place] Temperature Oral (F) 2018-07-09 12:09:00 97.9 F [facility] Respitory Rate 2018-07-09 12:09:00 [facility] Heart Rate 2018-07-09 12:09:00 [facility] BMI Calculated 2018-07-09 04:12:00 [facility] [place] Weight 2018-07-09 04:12:00 [facility] Height 2018-07-09 04:12:00 160.02 cm [facility] BMI Calculated 2018-07-08 18:44:00 [facility] Weight 2018-07-08 18:44:00 [facility] Height 2018-07-08 18:44:00 160.02 cm [facility] Temperature Oral (F) 2016-05-29 07:05:00 98.4 F [facility] Systolic (mm Hg) 2016-05-29 07:05:00 [facility] Diastolic (mm Hg) 2016-05-29 07:05:00 [facility] Respitory Rate 2016-05-29 07:05:00 [facility] Systolic (mm Hg) 2016-05-29 03:33:00 [facility] [place] Diastolic (mm Hg) 2016-05-29 03:33:00 [facility] [place] Respitory Rate 2016-05-29 03:33:00 [facility] [place] Heart Rate 2016-05-29 02:31:00 [facility] Respitory Rate 2016-05-29 02:31:00 [facility] [place] Systolic (mm Hg) 2016-05-29 02:31:00 [facility] [place] Diastolic (mm Hg) 2016-05-29 02:31:00 [facility] Height 2016-05-28 22:52:00 160.02 cm [facility] BMI Calculated 2016-05-28 22:52:00 [facility] [place] Weight 2016-05-28 22:52:00 [facility] Temperature Oral (F) 2016-05-28 22:52:00 98.6 F [facility] Heart Rate 2016-05-28 22:52:00 [facility] Height 2011-07-14 21:45:00 160.02 cm [facility] Weight 2011-07-14 21:45:00 [facility] Procedures Procedure Date / Time Performed Performing Clinician [facility] e Computed tomography of chest with contrast 2019-09-23 00:00:00 [facility] Computed tomography of brain without radiopaque contrast 2019-07 00:00:00 [facility] Computed tomography of abdomen and pelvis with contrast 00:00:00 [facility] APPLY FOREARM SPLINT 2019-06-15 00:00:00 [facility] EMERGENCY DEPT VISIT 2019-06-15 00:00:00 [facility] Computed tomography of brain without radiopaque contrast 2019-05 00:00:00 [facility] Computed tomography of cervical spine without contrast 2019-05-22 6 00:00:00 [facility] Computed tomography of abdomen and pelvis with contrast 2018 00:00:00 ERICKA UNGER [facility] section [facility] Planned Activity Planned Date Details Comments Source Instructions Chest Pain - Chest Wall [facility] Encounters Start Date/Time End Date/Time Encounter Type Admission Type [facility] Care Department Encounter ID Source 2019-09-23 20:25:00 2019-09-24 00:30:00 Departed Emergency Room 1 ALEXSANDRA JONES [facility] [id number] [facility] 2019-08-21 09:19:00 2019-08-24 13:22:00 [facility] [id number] [facility] 2019-06-15 22:20:00 2019-06-16 00:05:00 Departed Emergency Room 1 UNGER ERICKA [facility] [id number] I [facility] 2019-01-21 18:06:00 2019-01-21 22:08:00 [facility] [id number] [facility] 2018-11-14 16:46:00 2018-11-14 21:42:00 Departed Emergency Room 1 ANNABELLE [facility] [id number] [facility] 2018-08-09 16:27:00 2018-08-12 19:45:00 Discharged Inpatient (obs) 1 NIKKO OCONNOR [facility] [id number] [facility] 2018-07-08 13:34:03 2018-07-09 19:24:00 Outpatient Donald Barrett [facility] [id number] 2018-07-08 21:33:00 2018-07-08 21:33:00 Outpatient E [facility] [facility] 2018-03-31 18:31:00 2018-04-02 11:30:00 Discharged Inpatient 1 NIKKO OCONNOR [facility] [id number] [facility] 2017-12-28 07:41:00 2017-12-28 13:45:00 Departed Emergency Room 1 TONYA ALANIS [facility] [id number] [facility] 2016-05-28 17:46:00 2016-05-29 03:05:00 Outpatient Eugene Fraga [facility] [id number] Results Test Description Test Time Test Comments Results Result Comments Source CT CHEST W 2019-09-23 22:42:00 [place] [address] Patient Name: JESUS ASCENCIO MR #: [id number] : 1955 Age/Sex: 64/F Req #: [id number] Adm Physician: Ordered by: ALEXSANDRA JONES DO Report #: [id number] Location: ER Room/Bed: Procedure: [id number] CT/CT CHEST W Exam Date: 09/23/19 Exam Time: 2200 REPORT STATUS: Signed EXAM: CT Chest WITH contrast 09/23/2019 10:17 PM INDICATION: chest wall infection COMPARISON: CT dated 05/04/2016 TECHNIQUE: Chest was scanned utilizing a multidetector helical scanner from the lung apex through the level of the adrenal glands with administration of IV contrast. Coronal and sagittal reformations were obtained. Routine protocol was performed. IV CONTRAST: 100 mL of Isovue 370 COMPLICATIONS: None RADIATION DOSE: Total DLP: 541.26 mGy*cm Estimated effective dose: (DLP x 0.014 x size factor) mSv CTDIvol has been reviewed. It is below the limits set by the Radiation Protocol Committee (RPC). Dose modulation, iterative reconstruction, and/or weight based adjustment of the mA/kV was utilized to reduce the radiation dose to as low as reasonably achievable. FINDINGS: LINES/ TUBES: Left chest wall infusion port catheter with tip projecting over the distal SVC. LUNGS AND AIRWAYS: The lungs are unremarkable. Airways are normal. PLEURA: The pleural spaces are clear. HEART AND MEDIASTINUM: The thyroid gland is normal. No mediastinal, hilar or axillary lymphadenopathy. The heart is normal in size. There is no pericardial effusion. UPPER ABDOMEN: Un remarkable. BONES: Subacute fractures of the posterior 8th and 10th left ribs. SOFT TISSUES: Unremarkable. IMPRESSION: 1. No evidence of chest wall infection. Subacute fractures of the posterior eighth and 10th left ribs. 2. No acute thoracic process. Signed by: Elvin Ramos MD on 09/23/2019 11:31 PM Dictated By: ELVIN RAMOS MD 30 Transcribed By: DARION on 09/23/192330 COPY TO: ALEXSANDRA JONES DO Blood leukocytes automated count (number/volume) 2019-09-23 20:40:00 Test Item White Blood Count (test code = 6690-2) 7.26 4.8-10.8 [facility] automated count (number/volume)2019-09-23 20:40:00* Test Item Value Reference Range Interpretation Comments Red Blood Count (test code = 789-8) 4.27 3.6-5.1 [facility] hemoglobin measurement (moles/volume)2019-09-23 20:40:00* Test Item Value Reference Range Interpretation Comments Hemoglobin (test code = 54916-3) 13.1 12.0-16.0 [facility] CenterAutomated blood hematocrit (volume fraction)2019-09-23 20:40:00* Test Item Value Reference Range Interpretation Comments Hematocrit (test code = 4544-3) 39.6 34.2-44.1 [facility] Center[facility]ated erythrocyte mean corpuscular brhdqz3681-74-03 20:40:00* Test Item Value Reference Range Interpretation Comments Mean Corpuscular Volume (test code = 787-2) 92.7 81-99 [facility] CenterAutomated erythrocyte mean corpuscular hemoglobin (mass per erythrocyte)2019-09-23 20:40:00* Test Item Value Reference Range Interpretation Comments Mean Corpuscular Hemoglobin (test code = 785-6) 30.7 28-32 [facility] CenterAutomated erythrocyte mean corpuscular hemoglobin concentration measurement (mass/volume)2019-09-23 20:40:00* Test Item Value Reference Range Interpretation Comments Mean Corpuscular Hemoglobin Concent (test code = 786-4) 33.1 31-35 [facility] CenterRDW [id number]-[id number] 20:40:00* Test Item Value Reference Range Interpretation Comments Red Cell Distribution Width (test code = 42588-5) 13.0 11.7 -14.4 [facility] CenterAutomated blood platelet count (count/volume)2019-09-23 20:40:00* Test Item Value Reference Range Interpretation Comments Platelet Count (test code = 777-3) 203 140-360 [facility] CenterAutomated blood segmented neutrophil count as percentage of total plnatjgekt8019-84-21 20:40:00* Test Item Value Reference Range Interpretation Comments Neutrophils (%) (Auto) (test code = 20892-1) 46.8 38.7-80.0 [facility] CenterAutomated blood lymphocyte count as percentage ot total nhzyenobrn9842-90-51 20:40:00* Test Item Value Reference Range Interpretation Comments Lymphocytes (%) (Auto) (test code = 736-9) 38.8 18.0-39.1 [facility] CenterAutomated blood monocyte count as percentage of total lwgjucfqyh3553-02-81 20:40:00* Test Item Value Reference Range Interpretation Comments Monocytes (%) (Auto) (test code = 5905-5) 8.5 4.4-11.3 [facility] CenterAutomated blood eosinophil count as percentage of total gtfxmhrjex8740-12-32 20:40:00* Test Item Value Reference Range Interpretation Comments Eosinophils (%) (Auto) (test code = 713-8) 5.0 0.0-6.0 [facility] CenterAutomated blood basophil count as percentage of total zflqjklsuy4279-07-80 20:40:00* Test Item Value Reference Range Interpretation Comments Basophils (%) (Auto) (test code = 706-2) 0.6 0.0-1.0 [facility] CenterFluoroscopic procedure less than one hour cqpvvzbn8228-54-80 20:40:00* Test Item Value Reference Range Interpretation Comments IM GRANULOCYTES % (test code = IM GRANULOCYTES %) 0.3 0.0- 1.0 [facility] CenterAutomated blood neutrophil count 2019-09-23 20:40:00* Test Item Value Reference Range Interpretation Comments Neutrophils # (Auto) (test code = 751-8) 3.4 2.1-6.9 [facility] Center[facility] lymphocytes count (number/volume) 2019-09-23 20:40:00* Test Item Value Reference Range Interpretation Comments Lymphocytes # (Auto) (test code = 11696-5) 2.8 1.0-3.2 [facility] CenterBlood monocytes automated count (number/volume)2019-09-23 20:40:00* Test Item Value Reference Range Interpretation Comments Monocytes # (Auto) (test code = 742-7) 0.6 0.2-0.8 [facility] CenterAutomated blood eosinophil count 2019-09-23 20:40:00* Test Item Value Reference Range Interpretation Comments Eosinophils # (Auto) (test code = 711-2) 0.4 0.0-0.4 [facility] CenterAutomated blood basophil count (count/volume)2019-09-23 20:40:00* Test Item Value Reference Range Interpretation Comments Basophils # (Auto) (test code = 704-7) 0.0 0.0-0.1 [facility] CenterFluoroscopic procedure less than one hour yuufehnv1407-53-35 20:40:00* Test Item Value Reference Range Interpretation Comments Absolute Immature Granulocyte (auto (sidney t code = Absolute Immature Granulocyte (auto) 0.02 0-0.1 [facility] plasma sodium measurement (moles/volume)2019-09-23 20:40:00* Test Item Value Reference Range Interpretation Comments Sodium Level (test code = 2951-2) 140 136-145 [facility]ererum or plasma potassium measurement (moles/volume)2019-09-23 20:40:00* Test Item Value Reference Range Interpretation Comments Potassium Level (test code = 2823-3) 3.5 3.5-5.1 [facility]ere[facility] or plasma chloride measurement (moles/volume)2019-09-23 20:40:00* Test Item Value Reference Range Interpretation Comments Chloride Level (test code = 2075-0) 109 98-107 [facility]ererum or plasma carbon dioxide, total measurement (moles/volume)2019-09-23 20:40:00* Test Item Value Reference Range Interpretation Comments Carbon Dioxide Level (test code = 2028-9) 22 22-29 [facility] Centererum or plasma anion rhl7419-87-35 20:40:00* Test Item Value Reference Range Interpretation Comments Anion Gap (test code = 02945-6) 12.5 8-16 [facility]ere[facility] or plasma urea nitrogen measurement (mass/volume)2019-09-23 20:40:00* Test Item Value Reference Range Interpretation Comments Blood Urea Nitrogen (test code = 3094-0) 10 7-26 [facility]ererum or plasma creatinine measurement (mass/volume)2019-09-23 20:40:00* Test Item Value Reference Range Interpretation Comments Creatinine (test code = 2160-0) 0.76 0.57-1.11 [facility] Centererum or plasma urea nitrogen/creatinine mass bnagc4005-01-07 20:40:00* Test Item Value Reference Range Interpretation Comments BUN/Creatinine Ratio (test code = 3097-3) 13 6-25 [facility] CenterEstimated glomerular filtration rate (GFR) jpgoqpidokfhm1263-74-33 20:40:00* Test Item Value Reference Range Interpretation Comments Estimat Glomerular Filtration Rate (test code = 855522518) > 60 >60 Ranges were taken from the National Kidney Disease Education Program and the [employer] literature.Reference ranges:60 or greater: Mjblhn22-26 ( for 3 consecutive months): Chronic kidney disease 15 or less: Kidney failureBaylor University Medical CenterGlucose qkxgfblstgt9548-34-38 20:40:00* Test Item Value Reference Range Interpretation Comments Glucose Level (test code = PAX2565) 100 74-118 [facility]ererum or plasma calcium measurement (mass/volume)2019-09-23 20:40:00* Test Item Value Reference Range Interpretation Comments Calcium Level (test code = 92104-7) 8.7 8.4-10.2 [facility] Centererum or plasma total bilirubin measurement (mass/volume)2019-09-23 20:40:00* Test Item Value Reference Range Interpretation Comments Total Bilirubin (test code = 1975-2) 0.3 0.2-1.2 [facility] CenterFluoroscopic procedure less than one hour klxfsagi5714-37-40 20:40:00* Test Item Value Reference Range Interpretation Comments Aspartate Amino Transf (AST/SGOT) (test code = Aspartate Amino Transf (AST/SGOT)) 33 5-34 [facility] Centererum or plasma alanine aminotransferase measurement (enzymatic activity/volume)2019-09-23 20:40:00* Test Item Value Reference Range Interpretation Comments Alanine Aminotransferase (ALT/SGPT) (test code = 1742-6) 38 0-55 [facility] Centererum or plasma protein measurement (mass/volume)2019-09-23 20:40:00* Test Item Value Reference Range Interpretation Comments Total Protein (test code = 2885-2) 7.8 6.5-8.1 [facility] Centererum or plasma albumin measurement (mass/volume)2019-09-23 20:40:00* Test Item Value Reference Range Interpretation Comments Albumin (test code = 1751-7) 3.5 3.5-5.0 [facility] CenterPlasma globulin measurement (mass/volume) 2019-09-23 20:40:00* Test Item Value Reference Range Interpretation Comments Globulin (test code = 48530-6) 4.3 2.3-3.5 [facility] Centererum or plasma albumin/globulin mass cffhj4201-26-00 20:40:00* Test Item Value Reference Range Interpretation Comments Albumin/Globulin Ratio (test code = 1759-0) 0.8 0.8-2.0 [facility] Centererum or plasma alkaline phosphatase measurement (enzymatic activity/volume)2019-09-23 20:40:00* Test Item Value Reference Range Interpretation Comments Alkaline Phosphatase (test code = 6768-6) 80 40-150 [facility] CenterCapillary blood glucose measurement by glucometer (mass/volume)2019-08-24 10:42:00* Test Item Value Reference Range Interpretation Comments Bedside Glucose (test code = 47793-1) 128 70-120 Meter ID: [id number] Central TexasCapillary blood glucose measurement by glucometer (mass/volume)2019-08-24 10:42:00* Test Item Value Reference Range Interpretation Comments Bedside Glucose (test code = 41570-7) 128 70-120 Meter ID: [id number] Central TexasProthrombin time (PT) in platelet poor plasma by coagulation gkwek0539-10-41 05:19:00* Test Item Value Reference Range Interpretation Comments Prothrombin Time (test code = 5902-2) 27.8 11.9-14.5 [facility] CenterINR in Platelet poor plasma by Coagulation lmbyu8352-93-06 05:19:00* Test Item Value Reference Range Interpretation Comments Prothromb Time International Ratio (test code = 6301-6) 2.38 Oral Anticoagulant Therapy INR Values:1. Low Intensity Therapy 1.5 - 2.02 . Moderate Intensity Therapy 2.0 - 3.03. High Intensity Therapy(1) 2.5 - 3. 54. High Intensity Therapy(2) 3.0 - 4.05. Panic Value INR > 5.0 [facility] Centererum or plasma thyrotropin measurement by detection limit <= 0.005 miu/l (units/volume)2019-08-24 05:19:00* Test Item Value Reference Range Interpretation Comments Thyroid Stimulating Hormone (TSH) (test code = 92837-3) 2.340 0.350-4.940 [facility] CenterProthrombin time (PT) in platelet poor plasma by coagulation qthka7658-97-10 05:19:00* Test Item Value Reference Range Interpretation Comments Prothrombin Time (test code = 5902-2) 27.8 11.9-14.5 [facility] CenterINR in Platelet poor plasma by Coagulation eakfj0738-01-47 05:19:00* Test Item Value Reference Range Interpretation Comments Prothromb Time International Ratio (test code = 6301-6) 2.38 Oral Anticoagulant Therapy INR Values:1. Low Intensity Therapy 1.5 - 2.02 . Moderate Intensity Therapy 2.0 - 3.03. High Intensity Therapy(1) 2.5 - 3. 54. High Intensity Therapy(2) 3.0 - 4.05. Panic Value INR > 5.0 [facility] Centererum or plasma thyrotropin measurement by detection limit <= 0.005 miu/l (units/volume)2019-08-24 05:19:00* Test Item Value Reference Range Interpretation Comments Thyroid Stimulating Hormone (TSH) (test code = 90234-2) 2.340 0.350-4.940 [facility] CenterBl[facility] leukocytes automated count (number/volume)2019-08-22 05:00:00* Test Item Value Reference Range Interpretation Comments White Blood Count (test code = 6690-2) 7.79 4.8-10.8 [facility] CenterBlriver[facility] edge hospital erythrocytes automated count (number/volume)2019-08-22 05:00:00* Test Item Value Reference Range Interpretation Comments Red Blood Count (test code = 789-8) 4.02 3.6-5.1 [facility] CenterBlood hemoglobin measurement (moles/volume)2019-08-22 05:00:00* Test Item Value Reference Range Interpretation Comments Hemoglobin (test code = 25828-3) 12.4 12.0-16.0 [facility] CenterAutomated blood hematocrit (volume fraction)2019-08-22 05:00:00* Test Item Value Reference Range Interpretation Comments Hematocrit (test code = 4544-3) 38.1 34.2-44.1 [facility] CenterAutomated erythrocyte mean corpuscular jxtiuo9047-69-15 05:00:00* Test Item Value Reference Range Interpretation Comments Mean Corpuscular Volume (test code = 787-2) 94.8 81-99 [facility] CenterAutomated erythrocyte mean corpuscular hemoglobin (mass per erythrocyte)2019-08-22 05:00:00* Test Item Value Reference Range Interpretation Comments Mean Corpuscular Hemoglobin (test code = 785-6) 30.8 28-32 [facility] CenterAutnovant health erythrocyte mean corpuscular hemoglobin concentration measurement (mass/volume)2019-08-22 05:00:00* Test Item Value Reference Range Interpretation Comments Mean Corpuscular Hemoglobin Concent (test code = 786-4) 32.5 31-35 [facility] CenterRDW NwwEf-Yty6134-21-03 05:00:00* Test Item Value Reference Range Interpretation Comments Red Cell Distribution Width (test code = 74015-7) 12.2 11.7 -14.4 [facility] CenterAutswain community hospitaled blood platelet count (count/volume)2019-08-22 05:00:00* Test Item Value Reference Range Interpretation Comments Platelet Count (test code = 777-3) 232 140-360 [facility] CenterAutomated blood segmented neutrophil count as percentage of total zhkjvxegxb5327-57-00 05:00:00* Test Item Value Reference Range Interpretation Comments Neutrophils (%) (Auto) (test code = 78508-0) 51.1 38.7-80.0 [facility] CenterAutswain community hospitaled blood lymphocyte count as percentage ot total xuwbskbnji0671-09-81 05:00:00* Test Item Value Reference Range Interpretation Comments Lymphocytes (%) (Auto) (test code = 736-9) 35.8 18.0-39.1 [facility] CenterAutomated blood monocyte count as percentage of total ykcahejfol6742-67-31 05:00:00* Test Item Value Reference Range Interpretation Comments Monocytes (%) (Auto) (test code = 5905-5) 6.8 4.4-11.3 [facility] CenterAutomated blood eosinophil count as percentage of total nrszyhbzrj3144-10-42 05:00:00* Test Item Value Reference Range Interpretation Comments Eosinophils (%) (Auto) (test code = 713-8) 5.4 0.0-6.0 [facility] CenterAutomated blood basophil count as percentage of total rdwkuwusov7466-02-24 05:00:00* Test Item Value Reference Range Interpretation Comments Basophils (%) (Auto) (test code = 706-2) 0.6 0.0-1.0 [facility] CenterFluoroscopic procedure less than one hour cpwotbis0441-93-56 05:00:00* Test Item Value Reference Range Interpretation Comments IM GRANULOCYTES % (test code = IM GRANULOCYTES %) 0.3 0.0- 1.0 [facility] CenterAutomated blood neutrophil count 2019-08-22 05:00:00* Test Item Value Reference Range Interpretation Comments Neutrophils # (Auto) (test code = 751-8) 4.0 2.1-6.9 [facility] CenterBlood lymphocytes count (number/volume) 2019-08-22 05:00:00* Test Item Value Reference Range Interpretation Comments Lymphocytes # (Auto) (test code = 35016-2) 2.8 1.0-3.2 [facility] CenterBlood monocytes automated count (number/volume)2019-08-22 05:00:00* Test Item Value Reference Range Interpretation Comments Monocytes # (Auto) (test code = 742-7) 0.5 0.2-0.8 [facility] CenterAutomated blood eosinophil count 2019-08-22 05:00:00* Test Item Value Reference Range Interpretation Comments Eosinophils # (Auto) (test code = 711-2) 0.4 0.0-0.4 [facility] CenterAutomated blood basophil count (count/volume)2019-08-22 05:00:00* Test Item Value Reference Range Interpretation Comments Basophils # (Auto) (test code = 704-7) 0.1 0.0-0.1 [facility] CenterFluoroscopic procedure less than one hour jnvnjmod0140-63-93 05:00:00* Test Item Value Reference Range Interpretation Comments Absolute Immature Granulocyte (auto (sidney t code = Absolute Immature Granulocyte (auto) 0.02 0-0.1 [facility] plasma sodium measurement (moles/volume)2019-08-22 05:00:00* Test Item Value Reference Range Interpretation Comments Sodium Level (test code = 2951-2) 139 136-145 [facility] Centererum or plasma potassium measurement (moles/volume)2019-08-22 05:00:00* Test Item Value Reference Range Interpretation Comments Potassium Level (test code = 2823-3) 3.9 3.5-5.1 [facility] Centererum or plasma chloride measurement (moles/volume)2019-08-22 05:00:00* Test Item Value Reference Range Interpretation Comments Chloride Level (test code = 2075-0) 103 98-107 [facility] Centererum or plasma carbon dioxide, total measurement (moles/volume)2019-08-22 05:00:00* Test Item Value Reference Range Interpretation Comments Carbon Dioxide Level (test code = 2028-9) 30 22-29 [facility] Centererum or plasma anion uoq6159-63-90 05:00:00* Test Item Value Reference Range Interpretation Comments Anion Gap (test code = 39288-2) 9.9 8-16 [facility]ererum or plasma urea nitrogen measurement (mass/volume)2019-08-22 05:00:00* Test Item Value Reference Range Interpretation Comments Blood Urea Nitrogen (test code = 3094-0) 13 7-26 [facility] Centererum or plasma creatinine measurement (mass/volume)2019-08-22 05:00:00* Test Item Value Reference Range Interpretation Comments Creatinine (test code = 2160-0) 0.79 0.57-1.11 [facility] Centererum or plasma urea nitrogen/creatinine mass zkhmc6239-61-29 05:00:00* Test Item Value Reference Range Interpretation Comments BUN/Creatinine Ratio (test code = 3097-3) 16 6-25 [facility] CenterEstimated glomerular filtration rate (GFR) gnqpnmsvksuuf9870-67-77 05:00:00* Test Item Value Reference Range Interpretation Comments Estimat Glomerular Filtration Rate (test code = 622329586) > 60 >60 Ranges were taken from the National Kidney Disease Education Program and the [facility] Kidney Foundation literature.Reference ranges:60 or greater: Imuhov30-01 ( for 3 consecutive months): Chronic kidney disease 15 or less: Kidney failureBaylor University Medical CenterGlucose dfmnaklqbfj2003-19-70 05:00:00* Test Item Value Reference Range Interpretation Comments Glucose Level (test code = EXX2419) 99 74-118 [facility] Centererum or plasma calcium measurement (mass/volume)2019-08-22 05:00:00* Test Item Value Reference Range Interpretation Comments Calcium Level (test code = 57586-2) 8.3 8.4-10.2 [facility] Centererum or plasma total bilirubin measurement (mass/volume)2019-08-22 05:00:00* Test Item Value Reference Range Interpretation Comments Total Bilirubin (test code = 1975-2) 0.2 0.2-1.2 [facility] CenterFluoroscopic procedure less than one hour ffhqdthb0297-47-51 05:00:00* Test Item Value Reference Range Interpretation Comments Aspartate Amino Transf (AST/SGOT) (test code = Aspartate Amino Transf (AST/SGOT)) 19 5-34 [facility] Centererum or plasma alanine aminotransferase measurement (enzymatic activity/volume)2019-08-22 05:00:00* Test Item Value Reference Range Interpretation Comments Alanine Aminotransferase (ALT/SGPT) (test code = 1742-6) 25 0-55 [facility] Centererum or plasma protein measurement (mass/volume)2019-08-22 05:00:00* Test Item Value Reference Range Interpretation Comments Total Protein (test code = 2885-2) 6.9 6.5-8.1 [facility] Centererum or plasma albumin measurement (mass/volume)2019-08-22 05:00:00* Test Item Value Reference Range Interpretation Comments Albumin (test code = 1751-7) 3.1 3.5-5.0 [facility] CenterPlasma globulin measurement (mass/volume) 2019-08-22 05:00:00* Test Item Value Reference Range Interpretation Comments Globulin (test code = 92948-2) 3.8 2.3-3.5 [facility] Centererum or plasma albumin/globulin mass fbxln4237-66-12 05:00:00* Test Item Value Reference Range Interpretation Comments Albumin/Globulin Ratio (test code = 1759-0) 0.8 0.8-2.0 [facility] Centererum or plasma alkaline phosphatase measurement (enzymatic activity/volume)2019-08-22 05:00:00* Test Item Value Reference Range Interpretation Comments Alkaline Phosphatase (test code = 6768-6) 86 40-150 [facility] Centererum or plasma creatine kinase measurement (enzymatic activity/volume)2019-08-19 13:00:00* Test Item Value Reference Range Interpretation Comments Creatine Kinase (test code = 2157-6) 39 29-168 [facility] Centererum or plasma creatine kinase MB measurement (mass/volume)2019-08-19 13:00:00* Test Item Value Reference Range Interpretation Comments Creatine Kinase MB (test code = 53910-9) 0.70 0-5.0 [facility] CenterTroponin I measurement by highly sensitive enzyme eegyqtyggrd6322-83-53 13:00:00* Test Item Value Reference Range Interpretation Comments Troponin I (test code = 88216-8) < 0.001 0-0.300 [facility] Centererum or plasma creatine kinase measurement (enzymatic activity/volume)2019-08-19 13:00:00* Test Item Value Reference Range Interpretation Comments Creatine Kinase (test code = 2157-6) 39 29-168 [facility] Centererum or plasma creatine kinase MB measurement (mass/volume)2019-08-19 13:00:00* Test Item Value Reference Range Interpretation Comments Creatine Kinase MB (test code = 95942-6) 0.70 0-5.0 [facility] CenterTroponin I measurement by highly sensitive enzyme pdsitbfnmdc6061-70-47 13:00:00* Test Item Value Reference Range Interpretation Comments Troponin I (test code = 16279-9) < 0.001 0-0.300 [facility] Centererum or plasma triglyceride measurement (mass/volume)2019-08-19 04:51:00* Test Item Value Reference Range Interpretation Comments Triglycerides Level (test code = 2571-8) 165 0-149 [facility] Centererum or plasma cholesterol measurement (mass/volume)2019-08-19 04:51:00* Test Item Value Reference Range Interpretation Comments Cholesterol Level (test code = 2093-3) 159 0-199 Less than 200 mg/dL Low Ftsu727 - 239 mg/dL Borderline Phqm298 m g/dl and greater High Risk [facility]ererum or plasma cholesterol in LDL measurement (mass/volume) 2019-08-19 04:51:00* Test Item Value Reference Range Interpretation Comments LDL Cholesterol (test code = 2089-1) 98 60-130 [facility] Centererum or plasma cholesterol in HDL measurement (mass/volume)2019-08-19 04:51:00* Test Item Value Reference Range Interpretation Comments HDL Cholesterol (test code = 2085-9) 28 40-60 [facility] Centererum or plasma total cholesterol/cholesterol in HDL mass bktmz0894-57-02 04:51:00* Test Item Value Reference Range Interpretation Comments Cholesterol/HDL Ratio (test code = 9830-1) 5.7 3.0-3.6 [facility]ererum or plasma triglyceride measurement (mass/volume)2019-08-19 04:51:00* Test Item Value Reference Range Interpretation Comments Triglycerides Level (test code = 2571-8) 165 0-149 [facility] Centererum or plasma cholesterol measurement (mass/volume)2019-08-19 04:51:00* Test Item Value Reference Range Interpretation Comments Cholesterol Level (test code = 2093-3) 159 0-199 Less than 200 mg/dL Low Ooln457 - 239 mg/dL Borderline Kdnc326 m g/dl and greater High [facility] or plasma cholesterol in LDL measurement (mass/volume) 2019-08-19 04:51:00* Test Item Value Reference Range Interpretation Comments LDL Cholesterol (test code = 2089-1) 98 60-130 [facility]ererum or plasma cholesterol in HDL measurement (mass/volume)2019-08-19 04:51:00* Test Item Value Reference Range Interpretation Comments HDL Cholesterol (test code = 2085-9) 28 40-60 [facility] Centererum or plasma total cholesterol/cholesterol in HDL mass tiykw1463-91-14 04:51:00* Test Item Value Reference Range Interpretation Comments Cholesterol/HDL Ratio (test code = 9830-1) 5.7 3.0-3.6 [facility] CenterFluoroscopic procedure less than one hour wnwywjgn9111-20-89 18:02:00* Test Item Value Reference Range Interpretation [...] under 564(g) of the ACT.Testing performed by [facility] [place], [place] [address]IDBBaylor [facility] Medical CenterFluoroscopic procedure less than one hour duration 2019-08-18 18:02:00* Test Item Value Reference Range Interpretation [...] under 564(g) of the ACT.Testing performed by [address] [id number] [place], [place] [address]CT ABDOMEN/PELVIS Z4720-55-88 17:58:00 [place] [address] Patient Name: JESUS ASCENCIO MR #: [id number] : 1955 Age/Sex: 64/F Req #: [id number] Adm Physician: Ordered by: TONYA ALANIS MD Report #: [id number] Location: ER Room/Bed: Procedure: [id number] CT/CT ABDOMEN/PELV IS W Exam Date: 08/18/19 Exam Time: 1709 REPORT STATUS: Signed EXAM: CT Abdomen and Pelvis WITH contrast INDICATION: Abdominal pain, nausea and vomiting. COMP ARISON: 01/21/2019. TECHNIQUE: Abdomen and pelvis were scanned utilizing a Playsinot idetector helical scanner from the lung base to [...] colon diverticula without CT evidence of ac [place] diverticulitis. Appendix is not identified. PELVIC ORGANS/BLADDER: [...] TONYA ALANIS MD CHEST SINGLE (PORTABLE)2019-08-18 17:54:00 [place] [address] Patient Name: JESUS ASCENCIO MR #: [id number] : 1955 Age/Sex: 64/F Req #: [id number] Adm Physician: Ordered by: TONYA ALANIS MD Report #: [id number] Location: ER Room/Bed: Procedure: [id number] DX/CHEST SINGLE (P ORTABLE) Exam Date: 08/18/19 [...] IMPRESSION: No acute thoracic abnormality. Signed by: Estrella [place].D. on 08/18/2019 5:56 PM Dictated By: OSITO LARES MD, MD Electronic ally Signed By: OSITO LARES MD, MD on 08/18/191755 Transcribed By: DARION fierro 08/18/191755 COPY TO: TONYA ALANIS MD CT BRAIN XJ8220-29-61 17:39:00 [place] [address] Patient Name: JESUS ASCENCIO MR #: [id number] : 1955 Age/Sex: 64/F Req #: [id number] Adm Physician: Ordered by: TONYA ALANIS MD Report #: [id number] Location: ER Room/Bed: Procedure: [id number] CT/CT BRAIN Date: 08/18/19 Exam Time: 1709 REPORT STATUS: [...] (aPTT) in platelet poor plasma by coagulation irioh3145-08-96 15:16:00* Test Item Value Reference Range Interpretation Comments Activated Partial Thromboplast Time (test code = 15559-0) 28.1 23.8-35.5 [facility] CenterUrine color dmqqfgoommlod3734-56-07 15:16:00* Test Item Value Reference Range Interpretation Comments Urine Color (test code = 5778-6) YELLOW YELLOW [facility] CenterUrine swczxqd1727-78-70 15:16:00* Test Item Value Reference Range Interpretation Comments Urine Clarity (test code = 85724-4) SL CLOUDY CLEAR [facility] Centerpecific gravity of Urine by Test strip 2019-08-18 15:16:00* Test Item Value Reference Range Interpretation Comments Urine Specific [place] (test code = 5811-5) 1.030 1.010-1.02 5 [facility] CenterU[facility] pH measurement by automated test ihlxj4499-29-97 15:16:00* Test Item Value Reference Range Interpretation Comments Urine pH (test code = 11535-2) 5.5 5-7 [facility] CenterUrine leukocyte esterase detection by hteyewwx4277-03-22 15:16:00* Test Item Value Reference Range Interpretation Comments Urine Leukocyte Esterase (test code = 5799-2) NEGATIVE NEGATIVE [facility] CenterUrine nitrite nzsqvpaso3856-65-20 15:16:00* Test Item Value Reference Range Interpretation Comments Urine Nitrite (test code = 64032-9) NEGATIVE NEGATIVE [facility] CenterUrine protein measurement by test strip (mass/volume)2019-08-18 15:16:00* Test Item Value Reference Range Interpretation Comments Urine Protein (test code = 5804-0) NEGATIVE NEGATIVE [facility] CenterUrine glucose xeuixhkxp0693-07-04 15:16:00* Test Item Value Reference Range Interpretation Comments Urine Glucose (UA) (test code = 2349-9) 2+ NEGATIVE [facility] CenterUrine ketones detection by automated test otmkm4350-00-89 15:16:00* Test Item Value Reference Range Interpretation Comments Urine Ketones (test code = 39324-2) NEGATIVE NEGATIVE [facility] CenterUrine urobilinogen measurement by test strip (mass/volume)2019-08-18 15:16:00* Test Item Value Reference Range Interpretation Comments Urine Urobilinogen (test code = 76389-8) 0.2 0.2-1 [facility] CenterUrine total bilirubin measurement (mass/volume)2019-08-18 15:16:00* Test Item Value Reference Range Interpretation Comments Urine Bilirubin (test code = 1978-6) NEGATIVE NEGATIVE [facility] CenterUrine erythrocytes pciurpzck6365-24-20 15:16:00* Test Item Value Reference Range Interpretation Comments Urine Blood (test code = 96240-3) MODERATE NEGATIVE [facility] CenterAutomated urine sediment leukocyte count by microscopy (number/high power field)2019-08-18 15:16:00* Test Item Value Reference Range Interpretation Comments Urine WBC (test code = 5821-4) NONE 0-5 [facility] CenterErythrocytes detection in urine sediment by light dyjtuwwzsf1200-34-95 15:16:00* Test Item Value Reference Range Interpretation Comments Urine RBC (test code = 16879-8) 6-10 0-5 [facility] CenterBacteria detection in urine sediment by light rseyviwluo7698-50-13 15:16:00* Test Item Value Reference Range Interpretation Comments Urine Bacteria (test code = 03538-4) FEW NONE [facility] CenterEpithelial cells detection in urine sediment by light suuxkqeazq8835-33-85 15:16:00* Test Item Value Reference Range Interpretation Comments Urine Epithelial Cells (test code = 24815-3) MANY NONE [facility]ererum or plasma magnesium measurement (mass/volume)2019-08-18 15:16:00* Test Item Value Reference Range Interpretation Comments Magnesium Level (test code = 67353-6) 1.9 1.3-2.1 [facility]ererum or plasma amylase measurement (enzymatic activity/volume)2019-08-18 15:16:00* Test Item Value Reference Range Interpretation Comments Amylase Level (test code = 1798-8) 28 25-125 [facility]ererum or plasma lipase measurement (enzymatic activity/volume)2019-08-18 15:16:00* Test Item Value Reference Range Interpretation Comments Lipase (test code = 3040-3) 20 8-78 [facility] CenterActivated partial thromboplastin time (aPTT) in platelet poor plasma by coagulation qahlb3566-51-97 15:16:00* Test Item Value Reference Range Interpretation Comments Activated Partial Thromboplast Time (test code = 27763-8) 28.1 23.8-35.5 [facility] CenterUrine color htfzlykpxmtpt4171-99-23 15:16:00* Test Item Value Reference Range Interpretation Comments Urine Color (test code = 5778-6) YELLOW YELLOW [facility] CenterUrine nxnpmzu7742-73-94 15:16:00* Test Item Value Reference Range Interpretation Comments Urine Clarity (test code = 81781-3) SL CLOUDY CLEAR [facility] Centerpecific gravity of Urine by Test strip 2019-08-18 15:16:00* Test Item Value Reference Range Interpretation Comments Urine Specific [place] (test code = 5811-5) 1.030 1.010-1.02 5 [facility] CenterUrine pH measurement by automated test ztpyb2330-67-96 15:16:00* Test Item Value Reference Range Interpretation Comments Urine pH (test code = 68630-0) 5.5 5-7 [facility] CenterUrine leukocyte esterase detection by mewgdzgr9569-31-82 15:16:00* Test Item Value Reference Range Interpretation Comments Urine Leukocyte Esterase (test code = 5799-2) NEGATIVE NEGATIVE [facility] CenterUrine nitrite bozuoeqdq7185-54-75 15:16:00* Test Item Value Reference Range Interpretation Comments Urine Nitrite (test code = 09022-5) NEGATIVE NEGATIVE [facility] CenterUrine protein measurement by test strip (mass/volume)2019-08-18 15:16:00* Test Item Value Reference Range Interpretation Comments Urine Protein (test code = 5804-0) NEGATIVE NEGATIVE [facility] CenterUrine glucose bvwnneijo5465-30-61 15:16:00* Test Item Value Reference Range Interpretation Comments Urine Glucose (UA) (test code = 2349-9) 2+ NEGATIVE [facility] CenterUrine ketones detection by automated test cqbsa5981-78-44 15:16:00* Test Item Value Reference Range Interpretation Comments Urine Ketones (test code = 40006-2) NEGATIVE NEGATIVE [facility] CenterUrine urobilinogen measurement by test strip (mass/volume)2019-08-18 15:16:00* Test Item Value Reference Range Interpretation Comments Urine Urobilinogen (test code = 06533-9) 0.2 0.2-1 [facility] CenterUrine total bilirubin measurement (mass/volume)2019-08-18 15:16:00* Test Item Value Reference Range Interpretation Comments Urine Bilirubin (test code = 1978-6) NEGATIVE NEGATIVE [facility] CenterUrine erythrocytes qrgeiwfzd1060-24-96 15:16:00* Test Item Value Reference Range Interpretation Comments Urine Blood (test code = 26880-8) MODERATE NEGATIVE [facility] CenterAutomated urine sediment leukocyte count by microscopy (number/high power field)2019-08-18 15:16:00* Test Item Value Reference Range Interpretation Comments Urine WBC (test code = 5821-4) NONE 0-5 [facility] CenterErythrocytes detection in urine sediment by light cbsuueowgx8214-69-36 15:16:00* Test Item Value Reference Range Interpretation Comments Urine RBC (test code = 88490-5) 6-10 0-5 [facility] CenterBacteria detection in urine sediment by light vjimlfgflr0651-20-53 15:16:00* Test Item Value Reference Range Interpretation Comments Urine Bacteria (test code = 24396-7) FEW NONE [facility] CenterEpithelial cells detection in urine sediment by light vxmfevbvtt6789-12-19 15:16:00* Test Item Value Reference Range Interpretation Comments Urine Epithelial Cells (test code = 46393-9) MANY NONE [facility]ererum or plasma magnesium measurement (mass/volume)2019-08-18 15:16:00* Test Item Value Reference Range Interpretation Comments Magnesium Level (test code = 58688-5) 1.9 1.3-2.1 [facility] Centererum or plasma amylase measurement (enzymatic activity/volume)2019-08-18 15:16:00* Test Item Value Reference Range Interpretation Comments Amylase Level (test code = 1798-8) 28 25-125 [facility] Centererum or plasma lipase measurement (enzymatic activity/volume)2019-08-18 15:16:00* Test Item Value Reference Range Interpretation Comments Lipase (test code = 3040-3) 20 8-78 [facility] CenterCT CERVICAL SPINE VR8673-21-50 23:44:00 [facility] [address] [place] [address] Patient Name: JESUS ASCENCIO MR #: [id number] : 1955 Age/Sex: 64/F Req #: [id number] Adm Physician: Ordered by: ERICKA UNGER MD Report #: [id number] Location: ER Room/Bed: Procedure: [id number] CT/CT CERVICAL SPINE WO Exam Date: Exam [...] LUPE PACHECO MD on 06/15/192348 Transcribed By: [facility] RAN on 06/15/192348 COPY TO: ERICKA UNGER MD LOCATED WITHIN [facility] Bere/LLI4439-74-79 23:38:00 [place] [address] Patient Name: JESUS ASCENCIO MR #: [id number] : 1955 Age/Sex: 64/F Req #: [id number] Adm Physician: Ordered by: ERICKA UNGER MD Report #: [id number] Location: Room/Bed: Procedure: [id number] DX/RIBS UNILAT W/CXR Exam Date: Exam Time: [...] 11:43 PM Dictated By: NITZA PRO MD 42 Transcribe d By: DARION on 06/15/196 COPY TO: ERICKA UNGER MD CT BRAIN NW4889-28-86 23:33:00 [place] [address] Patient Name: JESUS ASCENCIO MR #: [id number] : 1955 Age/Sex: 64/F Req #: [id number] Adm Physician: Ordered by: ERICKA UNGER MD Report #: [id number] Location: ER Room/Bed: Procedure: [id number] CT/CT BRAIN WO Exam Date: Exam Time: [...] UNGER MD WRIST COMPLETE LEFT 2019-06-15 23:32:00 [place] [address] Patient Name: JESUS ASCENCIO MR #: [id number] : 1955 Age/Sex: 64/F Req #: [id number] Adm Physician: Ordered by: ERICKA UNGER MD Report #: [id number] Location: ER Room/Bed: Procedure: [id number] DX/WRIST COMPLETE LEFT Exam Date: Exam Time: [...] TO: ERICKA UNGER MD KNEE LEFT THREE MANNH2592-87-07 23:32:00 [place] [address] Patient Name: JESUS ASCENCIO MR #: [id number] : 1955 Age/Sex: 64/F Req #: [id number] Adm Physician: Ordered by: ERICKA UNGER MD Report #: [id number] Location: ER Room/Bed: Procedure: [id number] DX/KNEE LEFT THREE VIEWS Exam Date: Exam [...] 23 37 Transcribed By: DARION on 06/15/19 8874 COPY TO: ERICKA UNGER MD SHOULDER LEFT ATCPXIYN8568-44-17 23:32:00 [place] [address] Patient Name: JESUS ASCENCIO MR #: [id number] : 1955 Age/Sex: 64/F Req #: [id number] Adm Physician: Ordered by: ERICKA UNGER MD Report #: [id number] Location: ER Room/Bed: Procedure: [id number] DX/SHOULDER LEFT COMPLETE Exam Date: Exam Time: [...] 2 337 Transcribed By: DARION on 06/15/19 8472 COPY TO: CARRI UNGER MD NDXUWM5164-22-44 16:48:00* Test Item Value Reference Range Interpretation Comments GLUBED (test code = GLUBED) 162 mg/dL 74-106 H Performed by certified creel operator at [facility] XZYBDR2515-81-22 12:32:00* Test Item Value Reference Range Interpretation Comments GLUBED (test code = GLUBED) 120 mg/dL 74-106 H Performed by certified creel operator at [facility] BASIC METABOLIC MWQGH2418-78-76 08:09:00* Test Item Value Reference Range Interpretation [...] CA) 8.3 mg/dL 8.5-10.1 L BASIC METABOLIC JIELB4344-71-04 07:50:00* Test Item Value Reference Range Interpretation [...] CALCIUM (test code = CA) mg/dL 8.5-10.1 HMIRSW0799-35-19 07:47:00* Test Item Value Reference Range Interpretation Comments GLUBED (test code = GLUBED) 138 mg/dL 74-106 H Performed by certified creel operator at [facility] CBC W/AUTO NGOO6975-69-28 07:23:00* Test Item Value Reference Range Interpretation [...] code = NRBC#) 0.00 K/mm3 0.0-0.1 N IZTFOO8848-25-91 20:41:00* Test Item Value Reference Range Interpretation Comments GLUBED (test code = GLUBED) 201 mg/dL 74-106 H Performed by certified creel operator at [facility] TBBIFSRN-K1608-54-03 08:55:00* Test Item Value Reference Range Interpretation Comments TROPONIN-I (test code = TROPI) <0.015 ng/mL 0-0.045 N COMMENTS TO PLUG MAKING OPERATOR: COLLECT 3 HOURS AFTER PREVIOUS SFOIRIJBWDUTUM-M0417-03-03 06:24:00* Test Item Value Reference Range Interpretation Comments TROPONIN-I (test code = TROPI) <0.015 ng/mL 0-0.045 N COMMENTS TO PLUG MAKING OPERATOR: COLLECT 3 HOURS AFTER PREVIOUS [id number] 05:50:00* Test Item Value Reference Range Interpretation Comments CALCIUM (test code = CA) 8.9 mg/dL 8.5-10.1 N OFYKVZJIKL2815-18-98 05:50:00* Test Item Value Reference Range Interpretation Comments PHOSPHORUS (test code = PHOS) 3.8 mg/dL 2.5-4.9 N [id number] 05:50:00* Test Item Value Reference Range Interpretation Comments MAGNESIUM (test code = MAG) 2.3 mg/dL 1.8-2.4 N THYROID STIMULATING XCJLTMD7932-28-07 05:50:00* Test Item Value Reference Range Interpretation Comments THYROID STIMULATING HORMONE (test code = TSH) 4.120 uIU/mL 0.36-3.7 4 H TSH REFERENCE RANGES: EUTHYROID: 0.35 - 4.3 mIU/mL HYPO : > 5.5 mIU/mL HYPER : < 0.35 mIU/mL B-TYPE NATRIURETIC [id number] 05:43:00* Test Item Value Reference Range Interpretation Comments B-TYPE NATRIURETIC PEPTIDE (test code = BNP) 8.3 pg/mL 0-100 N [id number] 05:37:00* Test Item Value Reference Range Interpretation Comments CALCIUM (test code = CA) 8.9 mg/dL 8.5-10.1 N WLJHOGHLBX2271-79-47 05:37:00* Test Item Value Reference Range Interpretation Comments PHOSPHORUS (test code = PHOS) mg/dL 2.5-4.9 JUHFEYAMV7119-53-06 05:37:00* Test Item Value Reference Range Interpretation Comments MAGNESIUM (test code = MAG) 2.3 mg/dL 1.8-2.4 N THYROID STIMULATING SFLDBRQ0461-96-27 05:37:00* Test Item Value Reference Range Interpretation Comments THYROID STIMULATING HORMONE (test code = TSH) uIU/mL 0.36-3.7 4 - CT ABD PELVIS W/[id number] 23:12:00 Name: JESUS ASCENCIO [facility] : 1955 Age/S: 64 / F [address] [facility] Unit #: [id number] Loc: [place] [address] Phys: Romario Balderas MD Acct: [id number] Dis Date: Status: REG ER PHONE #: [phone] Exam Date: 04/21/20192299 FAX #: [phone] Reason: LUQ pain EXAMS: CPT CODE: [id number] CT ABD PELVIS W/CONT 19980 AFTER HOURS SERVICE ON: 04/21/2019 11:10 PM [...] PA GE 1 Signed Report (CONTINUED) Name: JESUS ASCENCIO [facility] : [birth year] Age/S: 64 / F [address] [place] [address] Unit #: [id number] Loc: [place] [address] Phys: Romario Balderas MD Acct: [id number] Dis Date: Status: REG ER PHONE #: [phone] Exam Date: 04/21/2019 230 FAX #: [phone] Reason: LUQ pain EXAMS: CPT CODE: [id number] CT ABD PELVIS W/CONT 69580 <Continued> CC: Romario Balderas MD Technologist:PAULIE MOISE RT(R),CT CTDI: DLP: Trnscb Date/Time: 04/21/2019 (2311) [email or web address] Orig Print D/T: S: 04/21/2019 (2315) PAGE 2 Signed Report - CTA CHEST FOR [id number] 23:10:00 Name: JESUS ASCENCIO [facility] : 1955 Age/S: 64 / F [address] [place] [address] Unit #: [id number] Loc: [place] [address] Phys: Romario Balderas MD Acct: [id number] Dis Date: Status: REG ER PHONE #: [phone] Exam Date: 04/21/20192299 FAX #: [phone] Reason: chest pain r/o PE EXAMS: CPT CODE: [id number] [place] [address] AFTER HOURS SERVICE ON: 04/21/2019 11:06 PM [...] M.D. PAGE 1 Signed Report (CONTINUED) [facility] 1955 Age/S: 64 / F [address] [place] [address] Unit #: [id number] Loc: [place] [address] Phys: Romario Balderas MD Acct: [id number] Dis Date: S tatus: REG ER PHONE #: [phone] Exam Da te: 04/21/2019 2300 FAX #: [phone] Reason: chest pain r/o PE EXAMS: CPT CODE: [id number] [place] [address] <Continued> CC: Romario Balderas MD Technologist:PAULIE MOISE RT(R),CT CTDI: DLP: Trnscb Date/Time: 04/21/2019 (2309) [email or web address] Orig Print D/T: S: 04/21/2019 (2312) PAGE 2 Signed Report - XR CHEST 1 [id number] 23:03:00 [facility] [place] [facility] 1955 Age/S:64 /F [address] [facility] Unit#:[id number] Loc: [place] [address] Phys: Romario Balderas MD Dis Date: PHONE #: [phone] Status: REG ER FAX #: [phone] Exam Date: 04/21/2019 Reason: chest pain EXAMS: CPT CODE: [id number] XR CHEST 1 V 02328 AFTER HOURS SERVICE ON: 04/21/2019 11:02 PM [...] (2302) [email or web address] Orig Print D/T: S: 04/21/2019 (2) PAGE 1 Signed Report PROTHROMBIN [id number] 22:10:00 * Test Item Value Reference Range [...] (2.5-3.5) IS PATIENT ON ANTICOAGULANTS? NTHROMBOPLASTIN TIME [id number] 22:10:00* Test Item Value Reference Range Interpretation Comments THROMBOPLASTIN TIME PARTIAL (test code = PTT) 27.4 seconds 25.5-34. 3 N Therapeutic Range for patients on Heparin Therapy is 2 to2.5 times their baseline PTT level. IS PATIENT ON ANTICOAGULANTS? NCOMPREHENSIVE METABOLIC [id number] 22:09:00 * Test Item Value Reference Range [...] code = ALKP) 89 U/L 38-126 N [id number] 22:09:00* Test Item Value Reference Range Interpretation Comments LIPASE (test code = LIP) 96 U/L 128-270 L [id number] 22:09:00* Test Item Value Reference Range Interpretation Comments TROPONIN-I (test code = TROPI) <0.015 ng/mL 0.00-0.056 N COMPREHENSIVE METABOLIC [id number] 22:03:00* Test Item Value Reference Range Interpretation [...] TOTAL (test code = ALKP) IUnit/L 45-117 RRNOUK8302-26-88 22:03:00* Test Item Value Reference Range Interpretation Comments LIPASE (test code = LIP) Unit/L 144-286 [id number]-[id number] 22:03:00* Test Item Value Reference Range Interpretation Comments TROPONIN-I (test code = TROPI) ng/mL 0-0.045 CBC W/AUTO [id number] 21:51:00* Test Item Value Reference Range Interpretation [...] REQUIRED (test code = MDIFF) NO PROTHROMBIN [id number] 08:39:00* Test Item Value Reference Range Interpretation [...] IS PATIENT ON ANTICOAGULANTS? YLIST ANTICOAGULANTS COUMADIN JASMINE CHISHOLM COMMENTS: STOPPED ANTICOAGULANTS ABOUT 3 WEEKS AGOCOMMENTS TO PLUG MAKING OPERATOR: IN [facility] ASPIRINTHROMBOPLASTIN TIME VROKRCC0971-24-47 08:39:00* Test Item Value Reference Range Interpretation Comments THROMBOPLASTIN TIME PARTIAL (test code = PTT) 28.9 seconds 25.0-36. 5 N IS PATIENT ON ANTICOAGULANTS? YLIST ANTICOAGULANTS COUMADIN JASMINE CHISHOLM COMMENTS: STOPPED ANTICOAGULANTS ABOUT 3 WEEKS AGOCOMMENTS TO PLUG MAKING OPERATOR: IN [facility] MLBCGXZVUMGJT4020-49-70 08:36:00* Test Item Value Reference Range Interpretation Comments GLUBED (test code = GLUBED) 127 mg/dL 74-106 H Performed by certified creel operator at [facility] BASIC METABOLIC [id number] 08:25:00* Test Item Value Reference Range Interpretation [...] N SEE N BOTE ON H60CBC W/AUTO [id number] 08:10:00* Test Item Value Reference Range Interpretation [...] MANUAL DIFF REQUIRED (test code = MDIFF) OPAL VALLES,ZGQCWI8593-33-87 11:03:00 RUN DATE: 02/25/19 [facility] PAGE 1 RUN TIME: 1103 Specimen Inqui ry RUN USER: INTERFACE PATIENT: JESUS ASCENCIO ACCT #: [id number] LOC: [place] U #: [id number] AGE/SX: 63/F ROOM: RE02/18/19REG DR: Jordan Lehman MD : 57 BED: DIS: STATUS: [facility] TLOC: SPEC #: [id number] RECD: 02/20/19 STATUS: DANIELLA [facility] #: [id number] [facility]: 02/18/[address] [facility] [address]: Jordan Lehman MD ENTERED: 02/20/19 SP TYPE: BX DUODEN OTHR DR: Fernanda Gee MD ORDERED: GROSS COPIES TO: Nito Gee MD [address] [place] [address] Jordan Lehman MD [address] [place] [address] PROCEDURES: GROSS (02/24/19-1 228) TISSUES: 1. DUODENUM, [...] CONTINUED ON NEXT PAGE RUN DATE: 02/25/19 [facility] PAGE 2 RUN TIME: 1103 Specimen Inquiry RUN USER: INTERFACE -- SPEC #: [id number] PATIENT: JESUS ASCENCIO #[id number] (Continued) FINAL DIAGNOSIS (Continued) NEGATIVE FOR INTESTINAL METAPLASIA NEGATIVE FOR HELICOBACTER OR GANISMS NEGATIVE FOR MALIGNANCY Sigmoid colon polyp, hot biopsy: HYPERPLASTIC POLYP NEGATIVE FOR MALIGNANCY MILD ARTIFACTUAL D ISTORTION PRESENT RRB/scarlet/sm D 78581a8, 87830 MACROS COPIC The first specimen is received [...] ments measuring 0.2 cm. GROSS PERFORMED AT [facility] [address] [place] [address] [phone])[phone] MICROSCOPIC All of the stains, including any contr ols performed, stain appropriately. MICROSCOPIC PERFORMED AT [facility] [address] [facility] [place] [address] (P)[phone] CONTINUED ON NEXT PAGE RUN DATE: 02/25/19 [facility] PAGE 3 RUN TIME: 1103 Speci men Inquiry RUN USER: INTERFACE SPEC #: [id number] PATIENT: LINDEN EwingJESUS #[id number] (Continued) PERFO RMING SITE Diagnosis performed at: [facility] [address] [facility] [place] [id number] Signed SIGNATURE ON FILE Luis Sparks MD 02/25/19 1103 END OF REPORT GLUBED 2019-02-18 07:48:00* Test Item Value Reference Range Interpretation Comments GLUBED (test code = GLUBED) 150 mg/dL 74-106 H Performed by certified creel operator at [facility] BASIC METABOLIC PVEER0673-10-23 07:24:00* Test Item Value Reference Range Interpretation [...] = CA) 9.0 mg/dL 8.5-10.1 N PROTHROMBIN [id number] 07:22:00* Test Item Value Reference Range Interpretation [...] PATIENT ON ANTICOAGULANTS? YLIST ANTICOAGULANTS COUMADINTHROMBOPLASTIN TIME AAKYGUE9476-70-17 07:22:00* Test Item Value Reference Range Interpretation Comments THROMBOPLASTIN TIME PARTIAL (test code = PTT) 28.9 seconds 25.0-36. 5 N IS PATIENT ON ANTICOAGULANTS? YLIST ANTICOAGULANTS COUMADINBASIC METABOLIC [id number] 07:20:00* Test Item Value Reference Range Interpretation [...] code = CA) mg/dL 8.5-10.1 CBC W/AUTO [id number] 07:08:00* Test Item Value Reference Range Interpretation [...] NRBC#) 0.00 K/mm3 0.0-0.[address] ABDOMEN/PELVIS [id number] 22:10:00 [place] [address] Patient Name: JESUS ASCENCIO MR #: [id number] : 1955 Age/Sex: 63/F Req #: [id number] Adm Physician: Ordered by: ERICKA UNGER MD Report #: [id number] Location: ER Room/Bed: Procedure: [id number] CT/CT ABDOMEN/PELVIS W Exam Date: Exam Time: [...] 01/21/192218 COPY TO: ERICKA UNGER MD Amylase Qqrvf9120-30-53 21:51:00* Test Item Value Reference Range Interpretation Comments Amylase Level (test code = 1798-8) 33 25-125 [facility]2019-[facility] 21:51:00* Test Item Value Reference Range Interpretation Comments Lipase (test code = 3040-3) 13 8-78 [facility] Dgdcy1513-32-72 21:42:00* Test Item Value Reference Range Interpretation Comments Sodium Level (test code = 2951-2) 138 136-145 [facility]Potassium Emffc3310-50-35 21:42:00* Test Item Value Reference Range Interpretation Comments Potassium Level (test code = 2823-3) 3.7 3.5-5.1 [facility] CenterChloride Xsltz9841-65-72 21:42:00* Test Item Value Reference Range Interpretation Comments Chloride Level (test code = 2075-0) 105 98-107 [facility] CenterCarbon Dioxide Bkyfl3158-64-72 21:42:00* Test Item Value Reference Range Interpretation Comments Carbon Dioxide Level (test code = 2028-9) 23 22-29 [facility] CenterAnion Pve9756-07-21 21:42:00* Test Item Value Reference Range Interpretation Comments Anion Gap (test code = 04309-9) 13.7 8-16 [facility] Center[facility] Urea Uobqgrgv8965-97-58 21:42:00* Test Item Value Reference Range Interpretation Comments Blood Urea Nitrogen (test code = 3094-0) 15 7-26 [facility] CenterCreatinine2019-12-03 21:42:00* Test Item Value Reference Range Interpretation Comments Creatinine (test code = 2160-0) 0.78 0.57-1.11 [facility] CenterBUN/Creatinine Hkqlv3832-68-49 21:42:00* Test Item Value Reference Range Interpretation Comments BUN/Creatinine Ratio (test code = 3097-3) 19 6-25 [facility] CenterEstimat Glomerular Filtration Rate 2019-01-21 21:42:00* Test Item Value Reference Range Interpretation Comments Estimat Glomerular Filtration Rate (test code = 097294664) > 60 >60 Ranges were taken from the National Kidney Disease Education Program and the [facility] Foundation literature.Reference ranges:60 or greater: Knuhkc94-95 ( for 3 consecutive months): Chronic kidney disease 15 or less: Kidney failureBaylor University Medical CenterGlucose Ospsr0278-25-97 21:42:00* Test Item Value Reference Range Interpretation Comments Glucose Level (test code = UMH2129) 137 74-118 H [facility] CenterCalcium Hfmvh4658-22-96 21:42:00* Test Item Value Reference Range Interpretation Comments Calcium Level (test code = 49190-2) 9.3 8.4-10.2 [facility] CenterTotal Vtmdmwhvb8420-68-27 21:42:00* Test Item Value Reference Range Interpretation Comments Total Bilirubin (test code = 1975-2) 0.2 0.2-1.2 [facility] CenterAspartate Amino Transf (AST/SGOT) 2019-01-21 21:42:00* Test Item Value Reference Range Interpretation Comments Aspartate Amino Transf (AST/SGOT) (test code = Aspartate Amino Transf (AST/SGOT)) 14 5-34 [facility] CenterAlanine Aminotransferase (ALT/SGPT) 2019-01-21 21:42:00* Test Item Value Reference Range Interpretation Comments Alanine Aminotransferase (ALT/SGPT) (test code = 1742-6) 12 0-55 [facility] CenterTotal Vgyprcj1766-46-04 21:42:00* Test Item Value Reference Range Interpretation Comments Total Protein (test code = 2885-2) 7.7 6.5-8.1 [facility] CenterAlbumin2019-12-03 21:42:00* Test Item Value Reference Range Interpretation Comments Albumin (test code = 1751-7) 3.7 3.5-5.0 [facility] CenterGlobulin2019-12-03 21:42:00* Test Item Value Reference Range Interpretation Comments Globulin (test code = 66523-7) 4.0 2.3-3.5 H [facility] CenterAlbumin/Globulin Dsdml6703-60-18 21:42:00 * Test Item Value Reference Range Interpretation Comments Albumin/Globulin Ratio (test code = 1759-0) 0.9 0.8-2.0 [facility] CenterAlkaline Yujtsssxseb7262-28-83 21:42:00* Test Item Value Reference Range Interpretation Comments Alkaline Phosphatase (test code = 6768-6) 75 40-150 [facility] CenterWhite Blood Jxrxz5099-83-54 21:39:00* Test Item Value Reference Range Interpretation Comments White Blood Count (test code = 6690-2) 10.79 4.8-10.8 [facility] CenterRed Blood Cigtn6671-75-13 21:39:00* Test Item Value Reference Range Interpretation Comments Red Blood Count (test code = 789-8) 4.13 3.6-5.1 [facility] CenterHemoglobin2019-12-03 21:39:00* Test Item Value Reference Range Interpretation Comments Hemoglobin (test code = 58430-9) 12.9 12.0-16.0 [facility] CenterHematocrit2019-12-03 21:39:00* Test Item Value Reference Range Interpretation Comments Hematocrit (test code = 4544-3) 39.0 34.2-44.1 [facility] CenterMean Corpuscular Qzzgwf2887-25-18 21:39:00* Test Item Value Reference Range Interpretation Comments Mean Corpuscular Volume (test code = 787-2) 94.4 81-99 [facility] CenterMean Corpuscular Hnoxfwffte2765-07-69 21:39:00* Test Item Value Reference Range Interpretation Comments Mean Corpuscular Hemoglobin (test code = 785-6) 31.2 28-32 [facility] CenterMean Corpuscular Hemoglobin Concent 2019-01-21 21:39:00* Test Item Value Reference Range Interpretation Comments Mean Corpuscular Hemoglobin Concent (test code = 786-4) 33.1 31-35 [facility] CenterRed Cell Distribution Deffm6353-59-44 21:39:00* Test Item Value Reference Range Interpretation Comments Red Cell Distribution Width (test code = 14476-9) 12.4 11.7 -14.4 [facility] CenterPlatelet Uqdcv7224-43-04 21:39:00* Test Item Value Reference Range Interpretation Comments Platelet Count (test code = 777-3) 259 140-360 [facility] CenterNeutrophils (%) (Auto)2019-01-21 21:39:00 * Test Item Value Reference Range Interpretation Comments Neutrophils (%) (Auto) (test code = 67124-3) 53.2 38.7-80.0 [facility] CenterLymphocytes (%) (Auto)2019-01-21 21:39:00 * Test Item Value Reference Range Interpretation Comments Lymphocytes (%) (Auto) (test code = 736-9) 36.0 18.0-39.1 [facility] CenterMonocytes (%) (Auto)2019-01-21 21:39:00* Test Item Value Reference Range Interpretation Comments Monocytes (%) (Auto) (test code = 5905-5) 5.7 4.4-11.3 [facility] CenterEosinophils (%) (Auto)2019-01-21 21:39:00 * Test Item Value Reference Range Interpretation Comments Eosinophils (%) (Auto) (test code = 713-8) 4.3 0.0-6.0 [facility] CenterBasophils (%) (Auto)2019-01-21 21:39:00* Test Item Value Reference Range Interpretation Comments Basophils (%) (Auto) (test code = 706-2) 0.6 0.0-1.0 [facility] CenterIM GRANULOCYTES %2019-01-21 21:39:00* Test Item Value Reference Range Interpretation Comments IM GRANULOCYTES % (test code = IM GRANULOCYTES %) 0.2 0.0- 1.0 [facility] CenterNeutrophils # (Auto)2019-01-21 21:39:00* Test Item Value Reference Range Interpretation Comments Neutrophils # (Auto) (test code = 751-8) 5.8 2.1-6.9 [facility] CenterLymphocytes # (Auto)2019-01-21 21:39:00* Test Item Value Reference Range Interpretation Comments Lymphocytes # (Auto) (test code = 41989-2) 3.9 1.0-3.2 H [facility] CenterMonocytes # (Auto)2019-01-21 21:39:00* Test Item Value Reference Range Interpretation Comments Monocytes # (Auto) (test code = 742-7) 0.6 0.2-0.8 [facility] CenterEosinophils # (Auto)2019-01-21 21:39:00* Test Item Value Reference Range Interpretation Comments Eosinophils # (Auto) (test code = 711-2) 0.5 0.0-0.4 H [facility] CenterBasophils # (Auto)2019-01-21 21:39:00* Test Item Value Reference Range Interpretation Comments Basophils # (Auto) (test code = 704-7) 0.1 0.0-0.1 [facility] CenterAbsolute Immature Granulocyte (auto 2019-01-21 21:39:00* Test Item Value Reference Range Interpretation Comments Absolute Immature Granulocyte (auto (sidney t code = Absolute Immature Granulocyte (auto) 0.02 0-0.1 [facility] CenterUrine TGN5246-03-58 21:32:00* Test Item Value Reference Range Interpretation Comments Urine WBC (test code = 5821-4) NONE 0-5 [facility] CenterUrine QAE6712-43-37 21:32:00* Test Item Value Reference Range Interpretation Comments Urine RBC (test code = 99186-7) 6-10 0-5 H [facility] CenterUrine Ylbysytt3213-26-34 21:32:00* Test Item Value Reference Range Interpretation Comments Urine Bacteria (test code = 32161-3) FEW NONE [facility] CenterUrine Epithelial Xbkoh3396-08-26 21:32:00 * Test Item Value Reference Range Interpretation Comments Urine Epithelial Cells (test code = 22902-0) NONE NONE [facility] CenterUrine Hriio9702-33-41 21:10:00* Test Item Value Reference Range Interpretation Comments Urine Color (test code = 5778-6) YELLOW YELLOW [facility] CenterUrine Ivkemib1799-63-53 21:10:00* Test Item Value Reference Range Interpretation Comments Urine Clarity (test code = 50915-0) SL CLOUDY CLEAR [facility] CenterUrine Specific Ptowwbr6285-69-33 21:10:00 * Test Item Value Reference Range Interpretation Comments Urine Specific [place] (test code = 5811-5) 1.020 1.010-1.02 5 [facility] CenterUrine hD6900-03-12 21:10:00* Test Item Value Reference Range Interpretation Comments Urine pH (test code = 85223-9) 6 5-7 [facility] CenterUrine Leukocyte Uanhgvoj5598-97-54 21:10:00* Test Item Value Reference Range Interpretation Comments Urine Leukocyte Esterase (test code = 77081-0) NEGATIVE NEGATIV E [facility] CenterUrine Zlaqidv9419-77-36 21:10:00* Test Item Value Reference Range Interpretation Comments Urine Nitrite (test code = 60574-0) NEGATIVE NEGATIVE [facility] CenterUrine Trafnor5409-97-40 21:10:00* Test Item Value Reference Range Interpretation Comments Urine Protein (test code = 66849-1) NEGATIVE NEGATIVE [facility] CenterUrine Glucose (UA)2019-01-21 21:10:00* Test Item Value Reference Range Interpretation Comments Urine Glucose (UA) (test code = 65306-7) 1+ NEGATIVE H [facility] CenterUrine Fqklheq0102-77-79 21:10:00* Test Item Value Reference Range Interpretation Comments Urine Ketones (test code = 37614-9) NEGATIVE NEGATIVE [facility] Mlewtcnonoux8639-77-84 21:10:00* Test Item Value Reference Range Interpretation Comments Urine Urobilinogen (test code = 90754-4) 0.2 0.2-1 [facility] CenterUrine Gxbyomekv3942-12-86 21:10:00* Test Item Value Reference Range Interpretation Comments Urine Bilirubin (test code = 1977-8) NEGATIVE NEGATIVE [facility] CenterUrine Fsjgw8191-23-75 21:10:00* Test Item Value Reference Range Interpretation Comments Urine Blood (test code = 38758-2) MODERATE NEGATIVE [facility] CenterGLUBED2019-11-15 11:58:00* Test Item Value Reference Range Interpretation Comments GLUBED (test code = GLUBED) 137 mg/dL 74-106 H Performed by certified creel operator at [facility] MRYBNAUE-Q7003-43-15 09:40:00* Test Item Value Reference Range Interpretation Comments TROPONIN-I (test code = TROPI) <0.015 ng/mL 0-0.045 N COMMENTS TO PLUG MAKING OPERATOR: COLLECT 3 HOURS AFTER PREVIOUS QJWPXGTZNERRBD-P8066-04-15 03:57:00* Test Item Value Reference Range Interpretation Comments TROPONIN-I (test code = TROPI) <0.015 ng/mL 0-0.045 N COMMENTS TO PLUG MAKING OPERATOR: COLLECT 3 HOURS AFTER PREVIOUS VASWNRATTWULKP-S0555-34-15 00:41:00* Test Item Value Reference Range Interpretation Comments TROPONIN-I (test code = TROPI) <0.015 ng/mL 0-0.045 N WLUVBY1029-77-67 21:35:00* Test Item Value Reference Range Interpretation Comments GLUBED (test code = GLUBED) 87 mg/dL 74-106 N Performed by certified creel operator at [facility] - CT CHEST W/CFIMVCLP7118-08-77 20:50:00 Name: JESUS ASCENCIO [facility] : 1955 Age/S: 63 / F [address] [facility] Unit #: [id number] Loc: [place] [address] Phys: Rodney Pagan MD Acct: [id number] Dis Date: Status: ADM IN PHONE #: [phone] Exam Date: 01/02/2019 1845 FAX #: [phone] Reason: chest pain R/O DISECTION Report Has Been Amended EXAMS: CPT CODE: [id number] CT CHEST W/CONTRAST 53165 Addendum - 01/02/2019 SIGNED 01/02/2019 ADDENDUM: [id number] CT/CTCHESTW ADDENDUM: This study was a CT [...] by: Earl Rivera M.D. Transcribed: 01/02/2019 (2049) Ashley Report EXAM: CT of the chest with [...] 1 Signed Report (CONTINUED) Name: JESUS ASCENCIO [facility] : 1955 Age/S: 63 / F [address] [facility] Unit #: [id number] [place]: [place] [address] Phys: Rodney Pagan MD ct: [id number] Dis Date: Status: ADM IN PHONE #: [phone] Exam Date: 01/02/2019 184 FAX #: [phone] Reason: chest pain R/O DISECTION Report Has Been Amended EXAMS: CPT CODE: [id number] CT CHEST W/CONTRAS T [address]87 <Continued> abnormalities. Location code: [facility] at 1922 Reported and signed by: Earl Rivera M.D. CC: Rodney Pagan MD Technologist:Volodymyr Stock RT(R),CT CTDI: DLP: Trnscb Date/Time: 01/02/2019 (1922) JoannaGRW Orig Print D/T: S: 01/02/2019 (1925) PAGE 2 Signed Report - CT CHEST W/CONTRAST 2019-01-02 19:23:00 Name: JESUS ASCENCIO [facility] : 1955 Age/S: 63 / F [address] [facility] Unit #: [id number] [place]: [place] [address] Phys: Rodney Pagan MD Acct: [id number] Dis Date: Status: REG ER PHONE #: [phone] Exam Date: 01/02/2019 1845 FAX #: [phone] Reason: chest pain R/O DISECTION EXAMS: CPT CODE: [id number] CT CHEST W/CONTRAST 65872 EXAM: CT of the chest with contrast; [...] dissection or other acute abnormalities. Location code: [facility] at 1923 Reported and signed by: Earl Rivera M.D. CC: Rodney Pagan MD Technologist:Volodymyr Stock RT(R),CT CTDI: DLP: Trnscb Date/Time: 01/02/2019 (1922) [email or web address] Orig Print D/T: S: 01/02/2019 (1925) PAGE 1 Signed Report - XR CHEST 2 P8116-86-14 17:56:00 Name: JESUS ASCENCIO [facility] : 1955 Age/S:63 /F [address] [facility] Unit#:[id number] [place]: [place] [address] Phys: Rodney Pagan MD Dis Date: PHONE #: [phone] Status: REG ER FAX #: [phone] Exam Date: 01/02/2019 Reason: CHEST PAIN EXAMS: CPT CODE: [id number] XR CHEST 2 V 53489 EXAM: Chest x-ray, 2 views; INFORMATION: Chest pain; IMPRESSION: 1. No evidence of active cardiopulmonary disease. 2. No change compared with a study from July 31, 2018; well-positioned left subclavian Port-A-Cath. Location code: [facility], [facility]IN [facility] at 1756 Reported and signed by: Earl Rivera M.D. CC: Rodney Pagan MD Ben hnologist: Volodymyr Stock(R),CT Trnscrpt Data: 01/02/2019 (2093) [email or web address] Orig Print D/T: S: 019 (6829) PAGE 1 Signed Report BASIC METABOLIC OVZSO3777-18-74 17:04:00* Test Item Value Reference Range Interpretation [...] code = CA) 8.9 mg/dL 8.4-10.2 N LOGNWL5635-83-95 17:04:00* Test Item Value Reference Range Interpretation Comments LIPASE (test code = LIP) 90 U/L 128-270 L NDZBFQJC-N9973-52-14 17:04:00* Test Item Value Reference Range Interpretation Comments TROPONIN-I (test code = TROPI) <0.015 ng/mL 0.00-0.056 N CBC W/O UQGM8190-76-42 16:46:00* Test Item Value Reference Range Interpretation [...] = MPV) 10.5 fL 6.7-11.0 N Urine XKY8932-37-72 20:06:00* Test Item Value Reference Range Interpretation Comments Urine WBC (test code = 5821-4) NONE 0-5 [facility] EEO6721-33-94 20:06:00* Test Item Value Reference Range Interpretation Comments Urine RBC (test code = 10849-6) 0-5 0-5 [facility] Qbyynvtf4943-77-10 20:06:00* Test Item Value Reference Range Interpretation Comments Urine Bacteria (test code = 90071-9) FEW NONE [facility] Epithelial Odgkl6302-21-08 20:06:00 * Test Item Value Reference Range Interpretation Comments Urine Epithelial Cells (test code = 47577-4) MODERATE NONE [facility] Qzdwp9125-91-95 19:54:00* Test Item Value Reference Range Interpretation Comments Urine Color (test code = 5778-6) YELLOW YELLOW [facility] Rtcissm0161-27-29 19:54:00* Test Item Value Reference Range Interpretation Comments Urine Clarity (test code = 41158-7) CLEAR CLEAR [facility] Center[facility] Specific Khegaft7144-82-49 19:54:00 * Test Item Value Reference Range Interpretation Comments Urine Specific [place] (test code = 5811-5) <=1.005 1.010-1.02 5 [facility] pG7148-58-26 19:54:00* Test Item Value Reference Range Interpretation Comments Urine pH (test code = 32831-5) 6.5 5-7 [facility] Leukocyte Eufcodav4644-36-19 19:54:00* Test Item Value Reference Range Interpretation Comments Urine Leukocyte Esterase (test code = 75845-4) NEGATIVE NEGATIV E [facility] Center[facility] Ojxfreu7181-66-54 19:54:00* Test Item Value Reference Range Interpretation Comments Urine Nitrite (test code = 21657-2) NEGATIVE NEGATIVE [facility] Center[facility] Xyljhok2258-02-52 19:54:00* Test Item Value Reference Range Interpretation Comments Urine Protein (test code = 04770-6) NEGATIVE NEGATIVE [facility] Center[facility] Glucose (UA)2018-11-14 19:54:00* Test Item Value Reference Range Interpretation Comments Urine Glucose (UA) (test code = 98661-8) NEGATIVE NEGATIVE [facility] Center[facility] Xpaemzt4548-84-43 19:54:00* Test Item Value Reference Range Interpretation Comments Urine Ketones (test code = 26867-4) NEGATIVE NEGATIVE [facility] Center[facility] Ikwjipjwhnsa0401-87-73 19:54:00* Test Item Value Reference Range Interpretation Comments Urine Urobilinogen (test code = 04935-8) 0.2 0.2-1 [facility] Center[facility] Hutbaxvjk1210-53-39 19:54:00* Test Item Value Reference Range Interpretation Comments Urine Bilirubin (test code = 1977-8) NEGATIVE NEGATIVE [facility] Idwfx3948-08-02 19:54:00* Test Item Value Reference Range Interpretation Comments Urine Blood (test code = 24515-4) 1+ NEGATIVE [facility] CenterCT ABDOMEN/PELVIS U9726-81-15 19:27:00 [place] [address] Patient Name: JESUS ASCENCIO MR #: [id number] : 1955 Age/Sex: 63/F Req #: [id number] Adm Physician: Ordered by: ALEXSANDRA ARANDA CHARGE ENTRY CLERK Report #: [id number] Location: ER Room/Bed: Procedure: [id number] CT/CT ABDOMEN/PELVIS W Exam Date: 11/14/18 Exam [...] DARION on 10/21 COPY TO: ALEXSANDRA ARANDA CHARGE ENTRY CLERK CHEST SINGLE (PORTABLE) 2018-11-14 19:05:00 [place] [address] Patient Name: JESUS ASCENCIO MR #: [id number] : 1955 Age/Sex: 63/F Req #: [id number] Adm Physician: Ordered by: ALEXSANDRA ARANDA CHARGE ENTRY CLERK Report #: [id number] Location: ER Room/Bed: Procedure: [id number] DX/CH EST SINGLE (PORTABLE) Exam Date: 11/14/18 [...] No acute radiographic ab normality. Signed by: Meliton BairdOIlana, M.M.M. on 9 7:07 PM Dictated By: WILIAM ST DO 06 Transcribed By: DARION on 11/14/181906 COPY TO: ALEXSANDRA ARANDA CHARGE ENTRY CLERK Creatine Kinase JL7701-52-39 18:22:00* Test Item Value Reference Range Interpretation Comments Creatine Kinase MB (test code = 57725-7) 0.90 0-5.0 [facility] CenterTroponin H7199-98-42 18:22:00* Test Item Value Reference Range Interpretation Comments Troponin I (test code = HLW6623) 0.002 0-0.300 [facility] CenterCreatine Kinase CS3258-73-64 18:22:00* Test Item Value Reference Range Interpretation Comments Creatine Kinase MB (test code = 25726-3) 0.90 0-5.0 [facility] CenterTroponin B7798-70-40 18:22:00* Test Item Value Reference Range Interpretation Comments Troponin I (test code = OTS6415) 0.002 0-0.300 [facility] CenterProthrombin Rnny7313-29-96 18:20:00* Test Item Value Reference Range Interpretation Comments Prothrombin Time (test code = 5902-2) 23.5 11.9-14.5 H [facility] CenterProthromb Time International Ratio 2018-11-14 18:20:00* Test Item Value Reference Range Interpretation Comments Prothromb Time International Ratio (test code = 6301-6) 2.02 Oral Anticoagulant Therapy INR Values:1. Low Intensity Therapy 1.5 - 2.02 . Moderate Intensity Therapy 2.0 - 3.03. High Intensity Therapy(1) 2.5 - 3. 54. High Intensity Therapy(2) 3.0 - 4.05. Panic Value INR > 5.0 [facility] CenterActivated Partial Thromboplast Time 2018-11-14 18:20:00* Test Item Value Reference Range Interpretation Comments Activated Partial Thromboplast Time (test code = 72653-4) 32.3 23.8-35.5 [facility] CenterProthrombin Skmq5013-08-27 18:20:00* Test Item Value Reference Range Interpretation Comments Prothrombin Time (test code = 5902-2) 23.5 11.9-14.5 H [facility] CenterProthromb Time International Ratio 2018-11-14 18:20:00* Test Item Value Reference Range Interpretation Comments Prothromb Time International Ratio (test code = 6301-6) 2.02 Oral Anticoagulant Therapy INR Values:1. Low Intensity Therapy 1.5 - 2.02 . Moderate Intensity Therapy 2.0 - 3.03. High Intensity Therapy(1) 2.5 - 3. 54. High Intensity Therapy(2) 3.0 - 4.05. Panic Value INR > 5.0 [facility] CenterActivated Partial Thromboplast Time 2018-11-14 18:20:00* Test Item Value Reference Range Interpretation Comments Activated Partial Thromboplast Time (test code = 98776-0) 32.3 23.8-35.5 [facility] Mzdcs6693-08-73 18:19:00* Test Item Value Reference Range Interpretation Comments Sodium Level (test code = 2951-2) 138 136-145 [facility] CenterPotassium Wwohy6287-83-83 18:19:00* Test Item Value Reference Range Interpretation Comments Potassium Level (test code = 2823-3) 3.3 3.5-5.1 L [facility] CenterChloride Edmdq6322-48-82 18:19:00* Test Item Value Reference Range Interpretation Comments Chloride Level (test code = 2075-0) 105 98-107 [facility] CenterCarbon Dioxide Yxhds4073-21-61 18:19:00* Test Item Value Reference Range Interpretation Comments Carbon Dioxide Level (test code = 2028-9) 23 22-29 [facility] CenterAnion Tcb3204-22-20 18:19:00* Test Item Value Reference Range Interpretation Comments Anion Gap (test code = 97733-6) 13.3 8-16 [facility] CenterBlood Urea Nbnxkonc1649-05-68 18:19:00* Test Item Value Reference Range Interpretation Comments Blood Urea Nitrogen (test code = 3094-0) 15 - [facility] CenterCreatinine2019-09-26 18:19:00* Test Item Value Reference Range Interpretation Comments Creatinine (test code = 2160-0) 0.81 0.57-1.11 [facility] CenterBUN/Creatinine Zentc3909-90-16 18:19:00* Test Item Value Reference Range Interpretation Comments BUN/Creatinine Ratio (test code = 3097-3) 19 08-13 [facility] CenterEstimat Glomerular Filtration Rate 2018-11-14 18:19:00* Test Item Value Reference Range Interpretation Comments Estimat Glomerular Filtration Rate (test code = 187884882) > 60 >60 Ranges were taken from the National Kidney Disease Education Program and the [facility] Foundation literature.Reference ranges:60 or greater: Tbulkz66-78 ( for 3 consecutive months): Chronic kidney disease 15 or less: Kidney failureBaylor University Medical CenterGlucose Ouwek2385-39-23 18:19:00* Test Item Value Reference Range Interpretation Comments Glucose Level (test code = UFL8880) 141 74-118 H [facility] CenterCalcium Fcshn8308-97-66 18:19:00* Test Item Value Reference Range Interpretation Comments Calcium Level (test code = 78682-6) 8.7 8.4-10.2 [facility] CenterTotal Tviimquvk7140-05-60 18:19:00* Test Item Value Reference Range Interpretation Comments Total Bilirubin (test code = 1975-2) 0.4 0.2-1.2 [facility] CenterAspartate Amino Transf (AST/SGOT) 2018-11-14 18:19:00* Test Item Value Reference Range Interpretation Comments Aspartate Amino Transf (AST/SGOT) (test code = Aspartate Amino Transf (AST/SGOT)) 23 5-34 [facility] CenterAlanine Aminotransferase (ALT/SGPT) 2018-11-14 18:19:00* Test Item Value Reference Range Interpretation Comments Alanine Aminotransferase (ALT/SGPT) (test code = 1742-6) 21 0-55 [facility] CenterTotal Tjhhdmw4593-93-59 18:19:00* Test Item Value Reference Range Interpretation Comments Total Protein (test code = 2885-2) 7.5 6.5-8.1 [facility] CenterAlbumin2019-09-26 18:19:00* Test Item Value Reference Range Interpretation Comments Albumin (test code = 1751-7) 3.3 3.5-5.0 L [facility] CenterGlobulin2019-09-26 18:19:00* Test Item Value Reference Range Interpretation Comments Globulin (test code = 70725-7) 4.2 2.3-3.5 H [facility] CenterAlbumin/Globulin Fkmpu0441-40-40 18:19:00 * Test Item Value Reference Range Interpretation Comments Albumin/Globulin Ratio (test code = 1759-0) 0.8 0.8-2.0 [facility] CenterAlkaline Xbwifktwdgr1593-20-69 18:19:00* Test Item Value Reference Range Interpretation Comments Alkaline Phosphatase (test code = 6768-6) 79 40-150 [facility] CenterCreatine Phzhyd4754-68-10 18:19:00* Test Item Value Reference Range Interpretation Comments Creatine Kinase (test code = 2157-6) 73 29-168 [facility] CenterLipase2019-09-26 18:19:00* Test Item Value Reference Range Interpretation Comments Lipase (test code = 3040-3) 10 8-78 [facility] CenterCreatine Jbhttq9772-16-17 18:19:00* Test Item Value Reference Range Interpretation Comments Creatine Kinase (test code = 2157-6) 73 29-168 [facility] CenterWhite Blood Nhygt7951-79-02 18:03:00* Test Item Value Reference Range Interpretation Comments White Blood Count (test code = 6690-2) 7.62 4.8-10.8 [facility] CenterRed Blood Rubcy8640-47-80 18:03:00* Test Item Value Reference Range Interpretation Comments Red Blood Count (test code = 789-8) 4.14 3.6-5.1 [facility] CenterHemoglobin2019-09-26 18:03:00* Test Item Value Reference Range Interpretation Comments Hemoglobin (test code = 99920-5) 13.3 12.0-16.0 [facility] CenterHematocrit2019-09-26 18:03:00* Test Item Value Reference Range Interpretation Comments Hematocrit (test code = 4544-3) 39.0 34.2-44.1 [facility] CenterMean Corpuscular Yvcwqy6621-53-95 18:03:00* Test Item Value Reference Range Interpretation Comments Mean Corpuscular Volume (test code = 787-2) 94.2 81-99 [facility] CenterMean Corpuscular Rtymxzzecq5634-96-76 18:03:00* Test Item Value Reference Range Interpretation Comments Mean Corpuscular Hemoglobin (test code = 785-6) 32.1 28-32 H [facility] CenterMean Corpuscular Hemoglobin Concent 2018-11-14 18:03:00* Test Item Value Reference Range Interpretation Comments Mean Corpuscular Hemoglobin Concent (test code = 786-4) 34.1 31-35 [facility] CenterRed Cell Distribution Msxez1280-54-98 18:03:00* Test Item Value Reference Range Interpretation Comments Red Cell Distribution Width (test code = 81549-0) 12.4 11.7 -14.4 [facility] CenterPlatelet Gfzmm4393-75-16 18:03:00* Test Item Value Reference Range Interpretation Comments Platelet Count (test code = 777-3) 248 140-360 [facility] CenterNeutrophils (%) (Auto)2018-11-14 18:03:00 * Test Item Value Reference Range Interpretation Comments Neutrophils (%) (Auto) (test code = 83971-3) 63.4 38.7-80.0 [facility] CenterLymphocytes (%) (Auto)2018-11-14 18:03:00 * Test Item Value Reference Range Interpretation Comments Lymphocytes (%) (Auto) (test code = 736-9) 25.9 18.0-39.1 [facility] CenterMonocytes (%) (Auto)2018-11-14 18:03:00* Test Item Value Reference Range Interpretation Comments Monocytes (%) (Auto) (test code = 5905-5) 5.4 4.4-11.3 [facility] CenterEosinophils (%) (Auto)2018-11-14 18:03:00 * Test Item Value Reference Range Interpretation Comments Eosinophils (%) (Auto) (test code = 713-8) 4.6 0.0-6.0 [facility] CenterBasophils (%) (Auto)2018-11-14 18:03:00* Test Item Value Reference Range Interpretation Comments Basophils (%) (Auto) (test code = 706-2) 0.3 0.0-1.0 [facility] CenterIM GRANULOCYTES %2018-11-14 18:03:00* Test Item Value Reference Range Interpretation Comments IM GRANULOCYTES % (test code = IM GRANULOCYTES %) 0.4 0.0- 1.0 [facility] CenterNeutrophils # (Auto)2018-11-14 18:03:00* Test Item Value Reference Range Interpretation Comments Neutrophils # (Auto) (test code = 751-8) 4.8 2.1-6.9 [facility] CenterLymphocytes # (Auto)2018-11-14 18:03:00* Test Item Value Reference Range Interpretation Comments Lymphocytes # (Auto) (test code = 72831-7) 2.0 1.0-3.2 [facility] CenterMonocytes # (Auto)2018-11-14 18:03:00* Test Item Value Reference Range Interpretation Comments Monocytes # (Auto) (test code = 742-7) 0.4 0.2-0.8 [facility] CenterEosinophils # (Auto)2018-11-14 18:03:00* Test Item Value Reference Range Interpretation Comments Eosinophils # (Auto) (test code = 711-2) 0.4 0.0-0.4 [facility] CenterBasophils # (Auto)2018-11-14 18:03:00* Test Item Value Reference Range Interpretation Comments Basophils # (Auto) (test code = 704-7) 0.0 0.0-0.1 [facility] CenterAbsolute Immature Granulocyte (auto 2018-11-14 18:03:00* Test Item Value Reference Range Interpretation Comments Absolute Immature Granulocyte (auto (sidney t code = Absolute Immature Granulocyte (auto) 0.03 0-0.1 [facility] CenterPROTHROMBIN XKUX9076-50-61 02:08:00* Test Item Value Reference Range Interpretation [...] (2.5-3.5) IS PATIENT ON ANTICOAGULANTS? NTHROMBOPLASTIN TIME OSUBADU3673-46-68 02:08:00* Test Item Value Reference Range Interpretation Comments THROMBOPLASTIN TIME PARTIAL (test code = PTT) 23.7 seconds 25.5-34. 3 L Therapeutic Range for patients on Heparin Therapy is 2 to2.5 times their baseline PTT level. IS PATIENT ON ANTICOAGULANTS? N- XR HAND 3 + V NI3282-48-41 01:59:00 Name: JESUS ASCENCIO [facility] : 1955 Age/S:63 /F [address] [facility] Unit#:[id number] Loc: [place] [address] Phys: Yury Mansfield MD Dis Date: PHONE #: [phone] Status: REG ER FAX #: [phone] Exam Date: 09/23/2018 Re ason: FALL EXAMS: CPT CODE: [id number] XR HAND 3 + [place] [address] AFTER HOURS SERVICE ON: 09/23/2018 1:5 8 [...] M.D. CC: Technologist: TRUNG JONES RT(R),RDMS,CT Tr nsct Data: 09/23/2018 (0159) [id number] Orig Print D/T : S: 09/23/2018 (0203) PAGE 1 Sig laurie Report - XR KNEE 3 V KF8094-65-05 01:58:00 Name: JESUS ASCENCIO [facility] : 1955 Age/S:63 /F [address] [facility] Unit#:[id number] Loc: [place] [address] Phys: Yury Mansfield MD Dis Date: PHONE #: [phone] Status: REG ER FAX #: [phone] Exam Date: 09/23/2018 Re ason: FALL EXAMS: CPT CODE: [id number] XR KNEE 3 [place] [address] AFTER HOURS SERVICE ON: 09/23/2018 1:5 7 AM Left Knee, 4 Views Location Code M12 History: FALL Findings: There is normal anatomic alignment. There is osteopenia. Moderate degenerative changes are seen. There is no fracture or joint effusion. Impression: No fracture. Osteoarthritic changes and osteopen ia. at 0158 Reported and signed by: Natasha Bermudez M.D. CC: Technologist: TRUNG JONES RT( R),RDMS,CT Trnscrpt Data: 09/23/2018 (0158) JoannaMA5 0 Orig Print D/T: S: 09/23/2018 (0209) PAGE 1 Signed Report Stress Test - Treadmill STGO1416-88-78 10:21:00 [place] [address] Patient Name : JESUS ASCENCIO MR #: [id number] : 1955 Age/Sex: 63/F Adm Physician : NIKOK OCONNOR MD Admit Date : 08/09/18 Location : [facility] Room/Bed : [place] [address] REPORT: Myoview Str ess Test DATE OF [...] normal without regional wa ll motion abnormalities. Ang tiffany Ross MD ABS/MACO : 38 /[id number] Signature Date Dictated By: RAGHAV ROSS MD Transcribed By: MODL on 08/29/18 <Electronically signed by RAGHAV ROSS MD><<Signature on File>>09/19/18 1240 COPY TO: Bedside Dzrqokl6963-51-33 20:28:00* Test Item Value Reference Range Interpretation Comments Bedside Glucose (test code = 63632-8) 129 70-120 H Meter ID: [id number] [facility] Glucose 2018-08-27 20:28:00* Test Item Value Reference Range Interpretation Comments Bedside Glucose (test code = 45810-3) 129 70-120 H Meter ID: [id number] [facility] WestBlood Culture 2018-08-15 23:05:00* Test Item Value Reference Range Interpretation Comments Blood Culture (test code = 69098011) NO GROWTH AFTER 5 DAYS, FINAL REPORT [facility] CenterBlood Hbqzqvy6901-79-04 23:05:00* Test Item Value Reference Range Interpretation Comments Blood Culture (test code = 51510597) NO GROWTH AFTER 5 DAYS, FINAL REPORT [facility] CenterCarcinoembryonic Ozumxih7075-03-46 05:23:00* Test Item Value Reference Range Interpretation Comments Carcinoembryonic Antigen (test code = 2039-6) 1.8 0.0-4.7 Nonsmokers <3.9 Smokers <5.6[employer] Electrochemiluminescence Immunoassay(ECLIA)Values obtained with different assay methods or kitscannot be used interchangeably. Results cannot beinterpreted as absolute evidence of the presence orabsence of malignant disease.Performed at: [address] [id number] Director: John Paul Painter MD, Phone: [phone] University Medical CenterCarcinoembryonic Antigen 2018-08-13 05:23:00* Test Item Value Reference Range Interpretation Comments Carcinoembryonic Antigen (test code = 2039-6) 1.8 0.0-4.7 Nonsmokers <3.9 Smokers <5.6[employer] Electrochemiluminescence Immunoassay(ECLIA)Values obtained with different assay methods or kitscannot be used interchangeably. Results cannot beinterpreted as absolute evidence of the presence orabsence of malignant disease.Performed at: [facility] [employer]oc[employer] [id number] Director: John Paul Painter MD, Phone: [phone] University Medical CenterBedside Snfnqcv9083-90-40 15:54:00* Test Item Value Reference Range Interpretation Comments Bedside Glucose (test code = 01269-8) 109 70-120 Meter ID: [id number] University Medical CenterBlood Culture 2018-08-11 23:05:00* Test Item Value Reference Range Interpretation Comments Blood Culture (test code = 26192330) NO GROWTH AFTER 24 HOURS [facility] CenterCholesterol Qbupd1209-32-73 16:57:00* Test Item Value Reference Range Interpretation Comments Cholesterol Level (test code = 2093-3) 157 0-199 Less than 200 mg/dL Low Tvsb373 - 239 mg/dL Borderline Dlqt889 m g/dl and greater High Risk [facility] CenterLDL Qeupefjtgkw0489-34-40 16:57:00* Test Item Value Reference Range Interpretation Comments LDL Cholesterol (test code = 2089-1) 88 60-130 [facility] CenterCholesterol/HDL Msysu4863-04-76 16:57:00 * Test Item Value Reference Range Interpretation Comments Cholesterol/HDL Ratio (test code = 9830-1) 3.6 3.0-3.6 [facility] CenterCholesterol Pxusi3073-37-64 16:57:00* Test Item Value Reference Range Interpretation Comments Cholesterol Level (test code = 2093-3) 157 0-199 Less than 200 mg/dL Low Bijs059 - 239 mg/dL Borderline Bljd591 m g/dl and greater High Risk [facility] CenterLDL Hvljgggmrcc7114-04-20 16:57:00* Test Item Value Reference Range Interpretation Comments LDL Cholesterol (test code = 2089-1) 88 60-130 [facility] CenterCholesterol/HDL Hmtua1706-93-75 16:57:00 * Test Item Value Reference Range Interpretation Comments Cholesterol/HDL Ratio (test code = 9830-1) 3.6 3.0-3.6 [facility] CenterCholesterol Lmhic1448-02-02 16:57:00* Test Item Value Reference Range Interpretation Comments Cholesterol Level (test code = 2093-3) 157 0-199 Less than 200 mg/dL Low Qacm908 - 239 mg/dL Borderline Cgpa663 m g/dl and greater High Risk [facility] CenterLDL Mslbonzgzlc2203-51-06 16:57:00* Test Item Value Reference Range Interpretation Comments LDL Cholesterol (test code = 2089-1) 88 60-130 [facility] CenterCholesterol/HDL Awhbe1426-72-72 16:57:00 * Test Item Value Reference Range Interpretation Comments Cholesterol/HDL Ratio (test code = 9830-1) 3.6 3.0-3.6 [facility] CenterTriglycerides Yxssv4233-68-78 16:19:00* Test Item Value Reference Range Interpretation Comments Triglycerides Level (test code = 2571-8) 124 0-149 [facility] CenterHDL Nytzvrfvzfu0475-71-92 16:19:00* Test Item Value Reference Range Interpretation Comments HDL Cholesterol (test code = 2085-9) 44 40-60 [facility] CenterTriglycerides Plltz1009-78-26 16:19:00* Test Item Value Reference Range Interpretation Comments Triglycerides Level (test code = 2571-8) 124 0-149 [facility] CenterHDL Fbeyzeambqc5563-24-82 16:19:00* Test Item Value Reference Range Interpretation Comments HDL Cholesterol (test code = 2085-9) 44 40-60 [facility] CenterTriglycerides Fsmds7388-62-89 16:19:00* Test Item Value Reference Range Interpretation Comments Triglycerides Level (test code = 2571-8) 124 0-149 [facility] CenterHDL Ftcccxlhmhr8025-52-50 16:19:00* Test Item Value Reference Range Interpretation Comments HDL Cholesterol (test code = 2085-9) 44 40-60 [facility] CenterCHEST SINGLE (PORTABLE)2018-08-10 07:36:00 [facility] [address] [place] [address] Patient Name: JESUS ASCENCIO MR #: [id number] : 1955 Age/Sex: 63/F Req #: [id number] Adm Physician: NIKKO OCONNOR MD Ordered by: JOHNNY MCCORMICK CHARGE ENTRY CLERK Report #: [id number] Location: [facility] Room/Bed: [place] [address] Procedure: [id number] DX/CHES T SINGLE (PORTABLE) Exam Date: 08/10/18 Exam Time: 0 605 REPORT STATUS: Signed EXAMIN ATION: CHEST SINGLE (PORTABLE) INDICATION: CP/SOB [id number] 2 0605 COMPARISON: CT chest and chest [...] on 08/10/18737 CO PY TO: JOHNNY MCCORMICK NP Creatine Kinase ZI0719-71-03 07:23:00* Test Item Value Reference Range Interpretation Comments Creatine Kinase MB (test code = 87199-2) 0.70 0-5.0 [facility] CenterTroponin C8233-04-65 07:23:00* Test Item Value Reference Range Interpretation Comments Troponin I (test code = DBJ9157) < 0.001 0-0.300 [facility] Centerodium Gtenp3929-89-49 07:04:00* Test Item Value Reference Range Interpretation Comments Sodium Level (test code = 2951-2) 140 136-145 [facility] CenterPotassium Gstyh1591-40-90 07:04:00* Test Item Value Reference Range Interpretation Comments Potassium Level (test code = 2823-3) 4.1 3.5-5.1 [facility] CenterChloride Oibrp5183-08-86 07:04:00* Test Item Value Reference Range Interpretation Comments Chloride Level (test code = 2075-0) 108 98-107 H [facility] CenterCarbon Dioxide Wjktm9476-50-34 07:04:00* Test Item Value Reference Range Interpretation Comments Carbon Dioxide Level (test code = 2028-9) 24 22-29 [facility] CenterAnion Tqo6126-48-29 07:04:00* Test Item Value Reference Range Interpretation Comments Anion Gap (test code = 52447-6) 12.1 8-16 [facility] CenterBlood Urea Hyopmzrr2398-43-88 07:04:00* Test Item Value Reference Range Interpretation Comments Blood Urea Nitrogen (test code = 3094-0) 19 7-26 [facility] CenterCreatinine2019-06-22 07:04:00* Test Item Value Reference Range Interpretation Comments Creatinine (test code = 2160-0) 0.74 0.57-1.11 [facility] CenterBUN/Creatinine Egwxj8128-14-95 07:04:00* Test Item Value Reference Range Interpretation Comments BUN/Creatinine Ratio (test code = 3097-3) 26 6-25 H [facility] CenterEstimat Glomerular Filtration Rate 2018-08-10 07:04:00* Test Item Value Reference Range Interpretation Comments Estimat Glomerular Filtration Rate (test code = 472113477) > 60 >60 Ranges were taken from the National Kidney Disease Education Program and the [facility] Kidney Foundation literature.Reference ranges:60 or greater: Yhrqsh79-21 ( for 3 consecutive months): Chronic kidney disease 15 or less: Kidney failureBaylor University Medical CenterGlucose Vpqfl7311-99-07 07:04:00* Test Item Value Reference Range Interpretation Comments Glucose Level (test code = VQX8081) 104 74-118 [facility] CenterCalcium Nwfdz8982-91-51 07:04:00* Test Item Value Reference Range Interpretation Comments Calcium Level (test code = 00289-4) 8.5 8.4-10.2 [facility] CenterCreatine Gdgafx5033-90-31 07:04:00* Test Item Value Reference Range Interpretation Comments Creatine Kinase (test code = 2157-6) 37 29-168 [facility] CenterWhite Blood Gbmgx3551-36-80 06:59:00* Test Item Value Reference Range Interpretation Comments White Blood Count (test code = 6690-2) 6.68 4.8-10.8 [facility] CenterRed Blood Mggux6537-60-27 06:59:00* Test Item Value Reference Range Interpretation Comments Red Blood Count (test code = 789-8) 3.77 3.6-5.1 [facility] CenterHemoglobin2019-06-22 06:59:00* Test Item Value Reference Range Interpretation Comments Hemoglobin (test code = 96861-9) 12.3 12.0-16.0 [facility] CenterHematocrit2019-06-22 06:59:00* Test Item Value Reference Range Interpretation Comments Hematocrit (test code = 4544-3) 36.2 34.2-44.1 [facility] CenterMean Corpuscular Rdhivv9193-35-07 06:59:00* Test Item Value Reference Range Interpretation Comments Mean Corpuscular Volume (test code = 787-2) 96.0 81-99 [facility] CenterMean Corpuscular Tjlmbrjvoo1166-11-19 06:59:00* Test Item Value Reference Range Interpretation Comments Mean Corpuscular Hemoglobin (test code = 785-6) 32.6 28-32 H [facility] CenterMean Corpuscular Hemoglobin Concent 2018-08-10 06:59:00* Test Item Value Reference Range Interpretation Comments Mean Corpuscular Hemoglobin Concent (test code = 786-4) 34.0 31-35 [facility] CenterRed Cell Distribution Lwusk5671-35-35 06:59:00* Test Item Value Reference Range Interpretation Comments Red Cell Distribution Width (test code = 84549-8) 12.7 11.7 -14.4 [facility] CenterPlatelet Pspub1183-16-92 06:59:00* Test Item Value Reference Range Interpretation Comments Platelet Count (test code = 777-3) 228 140-360 [facility] CenterNeutrophils (%) (Auto)2018-08-10 06:59:00 * Test Item Value Reference Range Interpretation Comments Neutrophils (%) (Auto) (test code = 04664-6) 42.5 38.7-80.0 [facility] CenterLymphocytes (%) (Auto)2018-08-10 06:59:00 * Test Item Value Reference Range Interpretation Comments Lymphocytes (%) (Auto) (test code = 736-9) 42.7 18.0-39.1 H [facility] CenterMonocytes (%) (Auto)2018-08-10 06:59:00* Test Item Value Reference Range Interpretation Comments Monocytes (%) (Auto) (test code = 5905-5) 7.3 4.4-11.3 [facility] CenterEosinophils (%) (Auto)2018-08-10 06:59:00 * Test Item Value Reference Range Interpretation Comments Eosinophils (%) (Auto) (test code = 713-8) 6.6 0.0-6.0 H [facility] CenterBasophils (%) (Auto)2018-08-10 06:59:00* Test Item Value Reference Range Interpretation Comments Basophils (%) (Auto) (test code = 706-2) 0.6 0.0-1.0 [facility] CenterIM GRANULOCYTES %2018-08-10 06:59:00* Test Item Value Reference Range Interpretation Comments IM GRANULOCYTES % (test code = IM GRANULOCYTES %) 0.3 0.0- 1.0 [facility] CenterNeutrophils # (Auto)2018-08-10 06:59:00* Test Item Value Reference Range Interpretation Comments Neutrophils # (Auto) (test code = 751-8) 2.8 2.1-6.9 [facility] CenterLymphocytes # (Auto)2018-08-10 06:59:00* Test Item Value Reference Range Interpretation Comments Lymphocytes # (Auto) (test code = 05297-5) 2.9 1.0-3.2 [facility] CenterMonocytes # (Auto)2018-08-10 06:59:00* Test Item Value Reference Range Interpretation Comments Monocytes # (Auto) (test code = 742-7) 0.5 0.2-0.8 [facility] CenterEosinophils # (Auto)2018-08-10 06:59:00* Test Item Value Reference Range Interpretation Comments Eosinophils # (Auto) (test code = 711-2) 0.4 0.0-0.4 [facility] CenterBasophils # (Auto)2018-08-10 06:59:00* Test Item Value Reference Range Interpretation Comments Basophils # (Auto) (test code = 704-7) 0.0 0.0-0.1 [facility] CenterAbsolute Immature Granulocyte (auto 2018-08-10 06:59:00* Test Item Value Reference Range Interpretation Comments Absolute Immature Granulocyte (auto (sidney t code = Absolute Immature Granulocyte (auto) 0.02 0-0.1 [facility] CenterProthrombin Iaqz3302-32-49 06:58:00* Test Item Value Reference Range Interpretation Comments Prothrombin Time (test code = 5902-2) 13.4 11.9-14.5 [facility] CenterProthromb Time International Ratio 2018-08-10 06:58:00* Test Item Value Reference Range Interpretation Comments Prothromb Time International Ratio (test code = 6301-6) 0.97 Oral Anticoagulant Therapy INR Values:1. Low Intensity Therapy 1.5 - 2.02 . Moderate Intensity Therapy 2.0 - 3.03. High Intensity Therapy(1) 2.5 - 3. 54. High Intensity Therapy(2) 3.0 - 4.05. Panic Value INR > 5.0 [facility] CenterActivated Partial Thromboplast Time 2018-08-10 06:58:00* Test Item Value Reference Range Interpretation Comments Activated Partial Thromboplast Time (test code = 62323-8) 29.2 23.8-35.5 [facility] CenterCT CHEST V3281-00-54 19:36:00 [place] [address] Patient Name: JESUS ASCENCIO MR #: [id number] : 1955 Age/Sex: 63/F Req #: [id number] Adm Physician: NIKKO OCONNOR MD Ordered by: JOHNNY MCCORMICK CHARGE ENTRY CLERK Report #: [id number] Location: [facility]/Bed: [facility] 1751 Procedure: [id number] CT/CT C HEST W Exam Date: 08/09/18 Exam Time: 1849 REPORT STATUS: Signed CT chest pulmonary embolism protocol CPT code: 44329 INDICATION: Chest pain PE protocol [id number] TECHNIQUE: Thin collimation axial images obtained thro [...] TO: JOHNNY MCCORMICK NP CHEST XRAY LINE UGPAAOEZS8140-81-08 18:27:00 [place] [address] Patient Name: JESUS ASCENCIO MR #: [id number] : 1955 Age/Sex: 63/F Req #: [id number] Adm Physician: NIKKO OCONNOR MD Ordered by: TONYA ALANIS MD Report #: [id number] Location: [facility] Room/Bed: [place] [address] Procedure: [id number] DX/CHES T XRAY LINE PLACEMENT Exam Date: [...] 08/09/181827 COPY TO: TONYA ALANIS MD Urine SUE8951-62-22 14:11:00* Test Item Value Reference Range Interpretation Comments Urine WBC (test code = 5821-4) NONE 0-5 [facility] CenterUrine RIE3754-18-72 14:11:00* Test Item Value Reference Range Interpretation Comments Urine RBC (test code = 06622-6) 6-10 0-5 H [facility] CenterUrine Nzitocci9047-99-47 14:11:00* Test Item Value Reference Range Interpretation Comments Urine Bacteria (test code = 24867-9) MANY NONE H [facility] CenterUrine Epithelial Vigsi8469-62-01 14:11:00 * Test Item Value Reference Range Interpretation Comments Urine Epithelial Cells (test code = 48541-0) MODERATE NONE [facility] CenterUrine Amorphous Wbrngtdf7716-04-19 14:11:00* Test Item Value Reference Range Interpretation Comments Urine Amorphous Sediment (test code = 8246-1) MODERATE FEW H [facility] CenterUrine Amorphous Tvwibgcv3273-28-66 14:11:00* Test Item Value Reference Range Interpretation Comments Urine Amorphous Sediment (test code = 8246-1) MODERATE FEW H [facility] CenterUrine Amorphous Gtvylxhz5697-21-44 14:11:00* Test Item Value Reference Range Interpretation Comments Urine Amorphous Sediment (test code = 8246-1) MODERATE FEW H [facility] CenterUrine Cgszy1460-03-78 14:09:00* Test Item Value Reference Range Interpretation Comments Urine Color (test code = 5778-6) YELLOW YELLOW [facility] CenterUrine Ivrnpnl0043-66-62 14:09:00* Test Item Value Reference Range Interpretation Comments Urine Clarity (test code = 01708-7) CLEAR CLEAR [facility] CenterUrine Specific Kswndcj0850-16-70 14:09:00 * Test Item Value Reference Range Interpretation Comments Urine Specific [place] (test code = 5811-5) 1.025 1.010-1.02 5 [facility] CenterUrine eC1417-02-48 14:09:00* Test Item Value Reference Range Interpretation Comments Urine pH (test code = 66195-5) 6 5-7 [facility] CenterUrine Leukocyte Tveggdyx6937-97-95 14:09:00* Test Item Value Reference Range Interpretation Comments Urine Leukocyte Esterase (test code = 15611-4) TRACE NEGATIV E H [facility] CenterUrine Dhgcsox4459-11-46 14:09:00* Test Item Value Reference Range Interpretation Comments Urine Nitrite (test code = 19381-1) NEGATIVE NEGATIVE [facility] CenterUrine Inppjve2855-11-98 14:09:00* Test Item Value Reference Range Interpretation Comments Urine Protein (test code = 62016-5) NEGATIVE NEGATIVE [facility] CenterUrine Glucose (UA)2018-08-09 14:09:00* Test Item Value Reference Range Interpretation Comments Urine Glucose (UA) (test code = 22038-3) NEGATIVE NEGATIVE [facility] CenterUrine Wnhunvv7931-36-71 14:09:00* Test Item Value Reference Range Interpretation Comments Urine Ketones (test code = 00373-9) NEGATIVE NEGATIVE [facility] CenterUrine Fxozrtexmpyw6608-35-78 14:09:00* Test Item Value Reference Range Interpretation Comments Urine Urobilinogen (test code = 25081-8) 0.2 0.2-1 [facility] CenterUrine Ijhchbgzh0305-13-83 14:09:00* Test Item Value Reference Range Interpretation Comments Urine Bilirubin (test code = 1977-8) NEGATIVE NEGATIVE [facility] CenterUrine Cntqj2799-80-16 14:09:00* Test Item Value Reference Range Interpretation Comments Urine Blood (test code = 13962-4) MODERATE NEGATIVE [facility] CenterCHEST 2 PXUTN5147-11-94 14:08:00 [facility] [address] [place] [address] Patient Name: EJSUS ASCENCIO MR #: [id number] : 1955 Age/Sex: 63/F Req #: [id number] Adm Physician: Ordered by: TONYA ALANIS MD Report #: [id number] Location: [facility]/Bed: Procedure: [id number] DX/CHES T 2 VIEWS Exam Date: 08/09/18 [...] Comments B-Type Natriuretic Peptide (test code = 52593-2) < 10.0 0-100 [facility] CenterB-Type Natriuretic Wpptdlo2077-25-09 13:22:00* Test Item Value Reference Range Interpretation Comments B-Type Natriuretic Peptide (test code = 45154-0) < 10.0 0-100 [facility] CenterB-Type Natriuretic Frkatpb6787-52-42 13:22:00* Test Item Value Reference Range Interpretation Comments B-Type Natriuretic Peptide (test code = 68916-9) < 10.0 0-100 [facility] CenterMagnesium Xgdwh8021-44-28 13:00:00* Test Item Value Reference Range Interpretation Comments Magnesium Level (test code = 11771-9) 2.4 1.3-2.1 H [facility] CenterTocastle[facility] Easazdnuo5274-03-62 13:00:00* Test Item Value Reference Range Interpretation Comments Total Bilirubin (test code = 1975-2) 0.6 0.2-1.2 [facility] CenterAspartate Amino Transf (AST/SGOT) 2018-08-09 13:00:00* Test Item Value Reference Range Interpretation Comments Aspartate Amino Transf (AST/SGOT) (test code = Aspartate Amino Transf (AST/SGOT)) 20 5-34 [facility] CenterAlanine Aminotransferase (ALT/SGPT) 2018-08-09 13:00:00* Test Item Value Reference Range Interpretation Comments Alanine Aminotransferase (ALT/SGPT) (test code = 1742-6) 20 0-55 [facility] CenterTotal Derzhye0590-21-69 13:00:00* Test Item Value Reference Range Interpretation Comments Total Protein (test code = 2885-2) 8.0 6.5-8.1 [facility] CenterAlbumin2019-06-21 13:00:00* Test Item Value Reference Range Interpretation Comments Albumin (test code = 1751-7) 3.7 3.5-5.0 [facility] CenterGlobulin2019-06-21 13:00:00* Test Item Value Reference Range Interpretation Comments Globulin (test code = 08672-2) 4.3 2.3-3.5 H [facility] CenterAlbumin/Globulin Woooj6124-24-61 13:00:00 * Test Item Value Reference Range Interpretation Comments Albumin/Globulin Ratio (test code = 1759-0) 0.9 0.8-2.0 [facility] CenterAlkaline Kltvrjzegbf6504-66-60 13:00:00* Test Item Value Reference Range Interpretation Comments Alkaline Phosphatase (test code = 6768-6) 84 40-150 [facility] CenterMagnesium Ywcmf1239-49-83 13:00:00* Test Item Value Reference Range Interpretation Comments Magnesium Level (test code = 98656-0) 2.4 1.3-2.1 H [facility] CenterMaesium Yupir9916-35-98 13:00:00* Test Item Value Reference Range Interpretation Comments Magnesium Level (test code = 20232-3) 2.4 1.3-2.1 H [facility] CenterD-Dimer Quantitative (PE/DVT)2018-08-09 12:54:00* Test Item Value Reference Range Interpretation Comments D-Dimer Quantitative (PE/DVT) (test code = 95639-9) 0.53 0. 00-0.45 H As with all in vitro diagnostic tests, the test results should be interpreted by the physician in conjunction with clinical findings and other test results.Test results are reported in NEW D-dimer units(ug/mLFEU).[facility] CenterD-Dimer Quantitative (PE/DVT)2018-08-09 12:54:00* Test Item Value Reference Range Interpretation Comments D-Dimer Quantitative (PE/DVT) (test code = 04867-3) 0.53 0. 00-0.45 H As with all in vitro diagnostic tests, the test results should be interpreted by the physician in conjunction with clinical findings and other test results.Test results are reported in NEW D-dimer units(ug/mLFEU).[facility] CenterD-Dimer Quantitative (PE/DVT)2018-08-09 12:54:00* Test Item Value Reference Range Interpretation Comments D-Dimer Quantitative (PE/DVT) (test code = 19254-2) 0.53 0. 00-0.45 H As with all in vitro diagnostic tests, the test results should be interpreted by the physician in conjunction with clinical findings and other test results.Test results are reported in NEW D-dimer units(ug/mLFEU).[facility] CenterGLUCOSE BEDSIDE PJOBFBH4603-70-43 13:33:00* Test Item Value Reference Range Interpretation Comments GLUCOSE BEDSIDE TESTING (test code = GLUBED) 100 MG/DL 70-119 N GLUCOSE BEDSIDE KXBPWGF2520-14-13 09:24:00* Test Item Value Reference Range Interpretation Comments GLUCOSE BEDSIDE TESTING (test code = GLUBED) 114 MG/DL 70-119 N - NM MYOCRD SPECT R/S TSKJ3875-77-65 15:40:00 Patient Name: JESUS ASCENCIO Unit No: [id number] EXAMS: CPT CODE: [id number] NM MYOC RD SPECT R/S MULT 49923 Lexiscan Myocardial Perfusion Imaging Indication: Chest pain, [...] Jose L Peters MD on 07/31/2018 at 1540 Reporte d and signed by: Jose L Peters MD Nuclear Medicine Cardiology exams performed on dual head cameras with appropriate software f or processing and reporting. CC: Jorgito Ndiaye CHARGE ENTRY CLERK; Jamil Kwan MD [facility] Alex NAME: JESUS ASCENCIO MEDICAL IMAGING PHYS : Wendie Mayendesire Phipps NP [address] [place] [address] : [birth year] AGE: 63 SEX: [place] LUCAS [facility] [address]270 LOC: B.240 W PHONE #: [phone] EXAM DATE: 08/01/19 STATUS: ADM IN FAX #: [phone] RAD NO: DC Dt : PAGE 1 Signed Report Patient Name: JESUS ASCENCIO Unit No: [id number] EXAMS: CPT CODE: [id number] NM MYOCRD SPECT R/S [facility] 10609 <Continued> Technologist: SAMEER STREETER. [facility]; RAGHAV ROCKWELL; .. Transcri bed Date/Time: 07/31/2018 (1540) - [place].HY1 Orig Print D/T: S: 07/31/2018 (1543) [facility] Alex NAME: JESUS ASCENCIO MEDICAL IMAGING PHYS: Jorgito Mayen Desire BANEGAS [address] [place] [address] : 1955 AGE: 63 SEX: CAR[place] LUCAS [facility] LOC: B.240 W PHONE #: [phone] EX AM DATE: 07/31/2018 STATUS: ADM IN FAX #: [phone] RAD NO: DC Dt: PAGE 2 Signed Report GLUCOSE BEDSIDE JBFDHYQ4420-96-67 15:04:00* Test Item Value Reference Range Interpretation [...] Index/DL 1 NOR MAL - US CHST W/VKIIGVGLIBD8431-26-89 11:45:00 Patient Name: JESUS ASCENCIO Unit No: [id number] EXAMS: CPT CODE: [id number] US CHST W/MEDIASTINUM 78555 LOCATION: T18 Soft tissue ultrasound left chest [...] MD; Jamil Kwan MD Technologist: Komal Cohen [facility] Trnscrbd D/ (1145) HomarR.JTM Probe: Orig Print D/T: S: 07/31/2018 (1148) Probe: MARIANA Johnson NAME: JESUS ASCENCIO MEDICAL IMAGING PHYS: RAUL. Am[address] : 1955 AGE: 63 SEX: F [place], [place] [address] LOC: B.240 W PHONE #: [phone] EXAM DATE: 07/31/2018 STATUS: ADM IN FAX #: [phone] RAD NO: Page 1 Signed Report [id number]-[id number] 09:27:00* Test Item Value Reference Range Interpretation [...] of temporal changes in troponin levelscharacteristic of [place]. ORIKWFEF-J0777-03-12 04:52:00* Test Item Value Reference Range Interpretation [...] of temporal changes in troponin levelscharacteristic of [place]. URINALYSIS JBXQIYZK4455-36-26 03:32:00* Test Item Value Reference Range Interpretation [...] RARE /LPF NONE - CT ABD PELVIS W/AGFF5107-30-80 01:50:00 Patient Name: JESUS ASCENCIO Unit No: [id number] EXAMS: CPT CODE: [id number] CT ABD PELVIS W/CONT 14845 EXAM: CT ABDOMEN AND PELVIS WITH IV [...] intraperitoneal air. No free intraperitoneal flui d. [facility] NAME: JESUS ASCENCIO [address] [place] [address] PHYS: Jamil Wong MD [place], [place] [address] : 1955 AGE: 63 SEX: F LOC: B.ERS PHONE #: EXAM DATE: 07/31/2018 STATUS: REG ER FAX #: [phone] RAD #: D/C DT PAGE 1 Signed Report (CONTINUED) Patient Name: JANICE ASCENCIO Unit No: [id number] EXAMS: CPT CODE: [id number] CT ABD PELVIS W/CONT 16424 <Continued> IMPRESSION: 1. No acute findings in abdomen or pelvis. 2. Fatty liver. 3. Diverticulosis coli without evidence for acute diverticulitis. 4. Evidence for previous sigmoid colon resection. 5. Status post cholecystectomy. at 0150 Reported and signed by: Macrina Alvarez MD CC: Jamil Kwan MD Dictated Date/Time: 07/31/2018 (0150) Technologist: Gerson Tello - Agency CTDI: 11.74 DLP: 638.11 Trnscrpt: 07/31/2018 (015) Ines MARIANA Johnson NAME: JESUS ASCENCIO [address] [place] [address] PHYS: Jamil [place] [address] : 1955 AGE: 63 SEX: F LOC: B.ERS PHONE #: [phone] EXAM DATE: 07/31/2018 STATUS: REG ER FAX #: [phone] RAD #: D/C DT PAGE 2 Signed Report Patient Name: JESUS ASCENCIO Unit No: [id number] EXAMS: CPT CODE: [id number] CT ABD PELVIS W/CONT 30184 <Continued> Orig Print D/T: S: 07/31/2018 (0153) MARIANA Johnson NAME: JANICE ASCENCIO[address] PHYS: Jamil [place] [address] : 1955 AGE: 63 SEX: F LOC: B.ERS PHONE #: [phone] EXAM DATE: 07/31/2018 STATUS: REG ER FAX #: [phone] RAD #: D/C DT PAGE 3 Signed Report - CT ANGIO UTNHG7872-53-59 01:45:00 Patient Name: JESUS ASCENCIO Unit No: [id number] EXAMS: CPT CODE: [id number] CT ANGIO CHEST 38785 DICTATION LOCATION: 8 HISTORY: Female, 63 years of age with [...] size; and/or use of iterative reconstruction t echnirichelle. FINDINGS: AORTA: No aneurysm or dissection. PULMONARY [...] 07/31/2018 (0145) Ben hnologist: Gerson Tello - Lizandro CTDI: 13.40 DLP: 550.52 Trnscrpt: (0145) HomarR.CLW [place] Alex NAME: JANICE ASCENCIO[address] PHYS: Jamil Wong MD [place] [address] : 1955 AGE: 63 SEX: F LOC: B.ERS PHONE #: [phone] EXAM DATE : 07/31/2018 STATUS: PRE ER FAX #: [phone] RAD #: D/C DT PAGE 1 Signed Report Patient Name: JESUS ASCENCIO Unit No: [id number] EXAMS: CPT CODE: [id number] CT ANGIO CHEST 89946 < Continued> Orig Print D/T: S: 07/31/2018 (0148) MARIANA Johnson NAME: JESUS ASCENCIO [address] PHYS: Jamil Wong MD [place] [address] : 1955 AGE: 63 SEX: F LOC: B.ERS PHONE #: [phone] EXAM DATE: 07/31/2018 STATUS: PRE ER FAX #: [phone] RAD #: D/C DT PAGE 2 Signed [...] hours if concentrations <2 NG/ML. B-TYPE NATRIURETIC MEFKJGC6598-15-56 01:30:00* Test Item Value Reference Range Interpretation Comments B-TYPE NATRIURETIC PEPTIDE (test code = BNP) < 30.00 PG/ML 0.00-100 .00 N - XR CHEST 1 H8390-72-26 01:13:00 FAX: Jamil Aguillon MD [phone] [place]: E St: PRE Patient Na me: ASCENCIOJESUSANJANA COVARRUBIAS Unit No: [id number] EXAMS: CPT CODE: [id number] XR CHEST 1 V 08241 DICTATION LOCATION: H48 HISTORY: Female, 63 years [...] O rig Print D/T: S: 07/31/2018 (0116) [facility] Alex NAME: JESUS ASCENCIO [address] [place] [address] PHYS: Jamil Wong MD [place], [place] [address] : 1955 AGE: 63 SEX: F LOC: B.ERS PHONE #: [phone] EXAM DATE: 07/31/2018 STATUS: PRE ER FAX #: [phone] RAD NO: DC Dt: PAGE 1 Signed Report [id number] 01:09:00* Test Item Value Reference Range Interpretation Comments LIPASE (test code = LIP) 72 Unit/L 114-286 L COMPREHENSIVE METABOLIC NCIQN9816-23-80 01:09:00* Test Item Value Reference Range Interpretation [...] NORMAL <50 MG Index/DL 1 NOR MAL ESKYWZPR-T6311-73-12 01:09:00* Test Item Value Reference Range Interpretation [...] of temporal changes in troponin levelscharacteristic of [place]. COMPREHENSIVE METABOLIC NPIAW6452-16-25 01:05:00* Test Item Value Reference Range Interpretation [...] NORMAL <50 MG Index/DL 1 NOR MAL YECRORIY-W3428-77-12 01:05:00* Test Item Value Reference Range Interpretation Comments TROPONIN-I (test code = TROPI) NG/ML 0.000-0.045 CBC W/AUTO VMTG7958-23-83 00:49:00* Test Item Value Reference Range Interpretation [...] 0.0-0.05 N - INJ W FLUOR EVAL PLQS1853-80-40 11:21:00 Name: JESUS ASCENCIO MARCI [facility] : 1955 Age/S: 63 / F [address] [facility] Unit #: [id number] Loc: [place] [address] Phys: Earl Rivera MD Acct: [id number] Dis Date: Status: [facility] PHONE #: [phone] Exam Date: 07/23/2018 1150 FAX #: [phone] Reason: PORT CHECK EXAMS: CPT CODE: [id number] INJ W FLUOR EVAL CVAD 92926 Fluoro Time: 48 DAP (Gy m2): 9150 [...] Technologist: YOLI JOHNSON RT(R) Trnscb Date/Time: 07/29/2018 (1121) [email or web address] Orig Print D/T: S: 07/29/2018 (0126) PAGE 1 Signed Report URINE AND QSMVF4795-26-29 22:29:00* Test Item Value Reference Range Interpretation Comments UA Spec Grav (test code = UA Spec Grav) 1.026 1 [facility] MZZHJ2427-24-87 22:29:00Moderate *ABN*(07/09/18 5:29 PM)[facility] FJOOR5123-78-13 22:29:00* Test Item Value Reference Range Interpretation Comments UA pH (test code = UA pH) 6.0 1 5.0-8.0 [facility] XEGFG2020-54-23 22:29:00Negative (07/09/18 5:29 PM) [facility] [id number] 22:29:00Negative *NA*(07/09/18 5:29 PM) [facility] CECND9077-49-07 22:29:001[facility] QDHFY9585-35-14 22:29:002[facility] UOIOA6816-06-24 22:29:00 Negative (07/09/18 5:29 PM)[facility] QJKVB3831-65-43 22:29:00 Yellow *NA*(07/09/18 5:29 PM)[facility] QNTFE4368-11-17 22:29:00 Clear (07/09/18 5:29 PM)[facility] YNWWQ6448-79-52 21:13:00 Negative (07/09/18 4:13 PM)[facility] JFIPR7597-61-38 21:13:0097 [facility] DGVKZ2086-48-10 21:13:00>182[facility] OHTQA9420-79-73 21:13:00Large *ABN*(07/09/18 4:13 PM)[facility] CNKMS0522-60-78 21:13:00Negative (07/09/18 4:13 PM)[facility] AABLV0966-14-00 21:13:00Negative *NA*(07/09/18 4:13 PM)[facility] DKUNT5395-43-05 21:13:00* Test Item Value Reference Range Interpretation Comments UA Spec Grav (test code = UA Spec Grav) 1.043 1 [facility] DLHPS6621-19-28 21:13:00Marked *ABN*(07/09/18 4:13 PM) [facility] FBYOC0958-20-42 21:13:00* Test Item Value Reference Range Interpretation Comments UA pH (test code = UA pH) 6.0 1 5.0-8.0 [facility]CARDIAC ZKOWVFA4349-51-43 09:02:00<0.02[facility]annCHEM JDVWC7681-53-82 09:02:003.5[facility]annCHEM WEMTJ9156-31-03 09:02:002.5 [facility]CHE[facility] QZNJS5113-66-19 09:02:000.3[facility]annCHEM PANEL 2018-07-09 09:02:000.1[facility]annCHEM WREYI0474-55-73 09:02:0083[facility]annCHEM EAIOJ6723-89-88 09:02:000.4[facility]annCHEM VSWQP6401-00-95 09:02:0021[facility]annCHEM RNYVZ1369-05-03 09:02:003.0[facility]annCHEM QRMAJ3367-77-12 09:02:004.3[facility]annCHEM WOTRE2880-36-49 09:02:00* Test Item Value Reference Range Interpretation Comments A/G Ratio (test code = A/G Ratio) 0.7 1 0.7-1.6 [facility] XIPOP9418-04-24 09:02:0024[facility]annCHEM PANEL 2018-07-09 09:02:007.3[facility] TwksevcYJPWZHFSJANA7223-14-47 09:02:0012.5 [facility] HdcbbwmXOWZJLADGZDX4642-47-00 09:02:0088[facility]annELECTROLYTES 2018-07-09 09:02:0024[facility] ErqfolzWBNABLHVCWZT9087-30-02 09:02:008.4[facility] SpzmxqkVGHFZFSBGTTN6940-81-81 09:02:003.5[facility] UlvtlvpVUJPWOQBOILT0293-26-73 09:02:36568Xghzqnux JeilklvUEUAVLCWKETJ2747-56-94 09:02:000.74[facility] FVFMQXHPDNDH9280-24-56 09:02:19522Zaqgfcbs PxcyttdGRCIUXOLALJJ9346-23-98 09:02:97426Sdctzqhz DyfkgfhPILBQFTNBOME6820-81-65 09:02:0017[facility] YWQMTSGNXU7921-98-52 09:02:000.1[facility] ZuktikyFWYOQEKHTI5067-51-55 09:02:000.4 [facility] BxhnyogXCQQGBPKDD0104-48-91 09:02:001.0[facility]annHEMATOLOGY 2018-07-09 09:02:003.7[facility] FyvuzkxOSMWCFLGWY6027-32-86 09:02:002.5[facility] AlphpgmBEBVNADJFC2564-35-65 09:02:000.5[facility] UhrcadgDAOGCWFRPR7406-95-32 09:02:0035.3[facility] NodduqeICKOGDPVNS2068-98-84 09:02:006.8[facility] FGOKARZTES0863-41-82 09:02:006.1[facility] ZdjlejbREVDWFUUBA3286-53-53 09:02:00 50.8[facility] KwdyppbZKFRMKQCCJ5571-19-22 09:02:008.2[facility]annHEMATOLOGY 2018-07-09 09:02:45464Xtngkdlg TmwbcqhCQPYFQYIXP6933-72-96 09:02:0095.2[facility] YfxbbwmALDHOKNXVE2191-23-70 09:02:00* Test Item Value Reference Range Interpretation Comments MCH (test code = MCH) 32.3 pg 27.0-31.0 [facility] SefgaieKFXDLYAFSB6107-28-67 09:02:0037.1[facility]annHEMATOLOGY 2018-07-09 09:02:0012.6[facility] DblwfwiOPSPEHUTBR2126-58-52 09:02:0033.9[facility] CffrfjwJSPBABKUDS4773-51-11 09:02:0013.8[facility] WydeuzhUZKWORDJFB3595-24-55 09:02:007.2[facility] SxlagafJXNBZWFPJN3506-91-65 09:02:003.90[facility] KWYGRU8147-77-37 09:02:00* Test Item Value Reference Range Interpretation Comments VLDL (test code = VLDL) 28 1 [facility] XwxhabfFALRGR9406-49-65 09:02:90026Yujraijv ScklbzhYZXVLR8153-73-26 09:02:50616Gapqfmzb YfodaxcICNWSP2162-65-91 09:02:0050[facility] HermannLIPIDS 2018-07-09 09:02:69831Dejzajqd PvwluujGHSNYL4083-33-45 09:02:00* Test Item Value Reference Range Interpretation Comments CHD Risk (test code = CHD Risk) 3.60 1 3.90-5.80 [facility]CARDIAC KFQRUJP0800-07-79 05:16:00<0.02[facility]annCARDIAC JBFNMAT8926-49-88 19:57:00<0.02[facility]annCARDIAC AAIYWKN0976-77-09 19:57:00<1.0[facility]CARDIAC WYNXZHB3644-76-92 19:57:0096[facility] CARDIAC NIYNBPL3398-22-29 19:57:009[facility]AC SOJQEDM4778-28-19 19:57:00<1.0[facility]annCHEM BAFDO7230-32-01 19:57:0066[facility]annCHEM VLUHT7647-72-07 19:57:0014[facility]annCHEM MXDKH2184-66-41 19:57:08995 [facility]annCHEM VVEJF7697-37-42 19:57:0026[facility]annCHEM PANEL 2018-07-08 19:57:003.4[facility]annCHEM QRCCE9853-62-02 19:57:27085Mzexbtib HermannCHEM RBOOP6644-67-48 19:57:004.9[facility]annCHEM SAXJJ4098-32-27 19:57:00* Test Item Value Reference Range Interpretation Comments B/C Ratio (test code = B/C Ratio) 15 1 6-25 [facility] HermannCHEM TKOJS4893-25-20 19:57:0091[facility]annCHEM PANEL 2018-07-08 19:57:000.2[facility] HermannCHEM FBPSP7234-05-65 19:57:009.4[facility] HermannCHEM WJAUE4267-79-77 19:57:00* Test Item Value Reference Range Interpretation Comments A/G Ratio (test code = A/G Ratio) 0.7 1 0.7-1.6 [facility] HermannCHEM PGFOE3428-98-84 19:57:008.3[facility]annCHEM PANEL 2018-07-08 19:57:008.7[facility] HermannCHEM IIZGN0325-67-00 19:57:0019[facility] HermannCHEM NPHRO6203-30-44 19:57:003.4[facility] HermannCHEM GYEDE0307-58-68 19:57:0026[facility] HermannCHEM WFQOI5465-76-48 19:57:03784Fkpxjjer HermannCHEM NCZCD2244-75-72 19:57:000.93[facility] EuudzjeDQRZUVRURF0065-14-88 19:57:00* Test Item Value Reference Range Interpretation Comments PTT (test code = PTT) 30.1 s 22.9-35.8 [facility]wdufggJNHPMOLDHG3814-15-79 19:57:00* Test Item Value Reference Range Interpretation Comments INR (test code = INR) 1.39 1 0.85-1.17 [facility] CenterMrgdlbmFRIUNRRCWK4155-05-84 19:57:00* Test Item Value Reference Range Interpretation Comments PT (test code = PT) 16.8 s 12.0-14.7 [facility] CfqaxsuWIQVXRQPWC9978-64-88 19:57:008.3[facility]annHEMATOLOGY 2018-07-08 19:57:86758Upfmykdx IrpkgxvOPOLRAVCKD8840-03-29 19:57:0013.8[facility] EbnxnkcQYJFKNXJOY3602-29-55 19:57:0094.2[facility] TlagckbCVSOJDAHCP8503-05-51 19:57:0013.4[facility] PvywnkvZXXUVXOFKX2079-64-02 19:57:0039.1[facility] OFHJDUDPHN3417-97-02 19:57:0034.2[facility] MdwongjDXFZNWEKIG7944-61-83 19:57:00* Test Item Value Reference Range Interpretation Comments MCH (test code = MCH) 32.2 pg 27.0-31.0 [facility] YzhkjyhBYDFQIDNBA9820-19-45 19:57:004.15[facility]annHEMATOLOGY 2018-07-08 19:57:0010.0[facility] ExesprrMOWATIQQZT7598-01-53 19:57:000.5[facility] HseyraeWYMXQPIURH5712-46-91 19:57:006.2[facility] BungzgzRXKMZFYVWE9208-85-08 19:57:000.4[facility] CylsykdCBEPPBINPL2355-80-12 19:57:002.8[facility] KNCFRAFZAI2569-44-77 19:57:000.1[facility] ZvcatfjGGJAYIMPIC5875-30-16 19:57:00 28.2[facility] CepymghEVGGRPVKKP1641-33-26 19:57:004.2[facility] HermannHEMATOLOGY 2018-07-08 19:57:000.7[facility] CiameqdGMRNWYKUYJ8087-75-57 19:57:0061.6[facility] FofitlzZYDAKXICSD6849-67-95 19:57:005.3[facility]- [facility] 2018-06-30 03:12:00 Name: JESUS ASCENCIO [facility] : 1955 Age/S: 63 / F [address] [facility] Unit #: [id number] Loc: [place] [address] Phys: Yamilet Cross MD Acct: [id number] Dis Date: Status: REG ER PHONE #: [phone] Exam Date: 06/30/2018 0304 FAX #: [phone] Reason: right upper quadrant pain EXAMS: CPT CODE: [id number] US ABDOMEN LTD 56462 EXAM: - US ABDOMEN LTD HISTORY: Pain [...] at 0312 Reported and signed by: John eBrmudez MD CC: Yamilet Cross MD Technologist: Clair Hernadez RDMS Trnscb Date/Time: 06/30/2018 (311) [email or web address] Orig Print D/T: S: 06/30/2018 (0315) Probe: PAGE 1 Signed Report - CT ABD PELVIS W/CONT 2018-06-29 23:59:00 Name: JESUS ASCENCIO [facility] : 1955 Age/S: 63 / F [address] [facility] Unit #: [id number] Loc: [place] [address] Phys: Yamilet Cross MD Acct: [id number] Dis Date: Status: REG ER PHONE #: [phone] Exam Date: 06/29/2018 2336 FAX #: [phone] Reason: ABDOMINAL PAIN, HISTORY OF COLON CANCER EXAMS: CPT CODE: [id number] CT ABD PELVIS W/CONT 55077 EXAM: - CT ABD PELVIS W/CONT HISTORY: [...] exam. IMPRESSION: No significant abnormalities demonstrated. at 7226 Reported and signed by: John Bermudez MD PAGE 1 Signed Report (CONTINUED) Name: JESUS ASCENCIO [facility] : 1955 Age/S: 63 / F [address] [facility] Unit #: [id number] Loc: [facility] [place] [address] Phys: Yamilet Cross MD Acct: [id number] Dis Date: Status: REG ER PHONE #: [phone] Exam Date: 06/29/2018 2336 FAX #: [phone] Reason: ABDOMINAL PAIN, HISTORY OF COLON CANCER EXAMS: CPT CODE: [id number] CT ABD PELVIS W/CONT 78281 < Continued> CC: Yamilet Cross MD Technologist:PAULIE MOISE RT(R),CT CTDI: DLP: Trnscb Date/Time: 06/29/2018 (8123) [email or web address] Orig Print D/T: S: 06/30/2018 (0002) PAGE 2 Signed Report URINALYSIS ZEOHRIEC5959-04-84 23:57:00* Test Item Value Reference Range Interpretation [...] NONE A Urine Source? Clean CatchBASIC METABOLIC RBKFE8417-21-26 23:00:00* Test Item Value Reference Range Interpretation [...] CA) 8.4 mg/dL 8.4-10.2 N HEPATIC FUNCTION QDDHU1231-84-03 23:00:00* Test Item Value Reference Range Interpretation [...] code = ALKP) 91 U/L 38-126 N GCAUZQ5258-38-71 23:00:00* Test Item Value Reference Range Interpretation Comments LIPASE (test code = LIP) 73 U/L 128-270 L MVHBDBKDH2932-47-08 23:00:00* Test Item Value Reference Range Interpretation Comments MAGNESIUM (test code = MAG) 2.0 mg/dL 1.6-2.3 N CPK-MB NKZMUBC5137-68-60 23:00:00* Test Item Value Reference Range Interpretation Comments CREATINE KINASE (CK) (test code = CK) 90 U/L 26-192 N CKMB (test code = CKMBT) 0.9 ng/mL 0.0-5.0 N RELATIVE % INDEX (test code = REL%) 1.0 % UQRXWIHZ-O6376-04-11 23:00:00* Test Item Value Reference Range Interpretation Comments TROPONIN-I (test code = TROPI) <0.015 ng/mL 0-0.045 N B-TYPE NATRIURETIC NZOOVZP8792-93-96 22:45:00* Test Item Value Reference Range Interpretation Comments B-TYPE NATRIURETIC PEPTIDE (test code = BNP) 15.8 pg/mL 0-100 N PROTHROMBIN MSTT3005-37-62 22:37:00* Test Item Value Reference Range Interpretation [...] (2.5-3.5) IS PATIENT ON ANTICOAGULANTS? NBASIC METABOLIC PNOSP1961-91-69 22:35:00* Test Item Value Reference Range Interpretation [...] CA) 8.4 mg/dL 8.4-10.2 N HEPATIC FUNCTION ARXQY5358-97-46 22:35:00* Test Item Value Reference Range Interpretation [...] TOTAL (test code = ALKP) IUnit/L 45-117 QULWRJ8743-39-72 22:35:00* Test Item Value Reference Range Interpretation Comments LIPASE (test code = LIP) Unit/L 144-286 CVRPDTEUW0526-04-01 22:35:00* Test Item Value Reference Range Interpretation Comments MAGNESIUM (test code = MAG) mg/dL 1.8-2.4 CPK-MB EABWFEP2146-20-39 22:35:00* Test Item Value Reference Range Interpretation Comments CREATINE KINASE (CK) (test code = CK) IUnit/L 26-208 CKMB (test code = CKMBT) ng/mL 0-6.0 RELATIVE % INDEX (test code = REL%) % CYMBNBKL-B5349-40-11 22:35:00* Test Item Value Reference Range Interpretation Comments TROPONIN-I (test code = TROPI) ng/mL 0-0.045 CBC W/O XJID8909-17-10 22:23:00* Test Item Value Reference Range Interpretation [...] fL 6.7-11.0 N - XR CHEST 1 N9067-15-64 21:47:00 Name: JESUS ASCENCIO [facility] : 1955 Age/S:63 /F [address] [facility] Unit#:[id number] [place] [address] Phys: Yamilet Cross MD Dis Date: PHONE #: [phone] Status: REG ER FAX #: [phone] Exam Date: 06/29/2018 Reason: CHEST PAIN EXAMS: CPT CODE: [id number] XR CHEST 1 V 23216 HISTORY: Chest pain. COMPARISON: October 18, 2017. No acute infiltrates, effusion or congestion is noted. Left Port-A-Cath is unchanged. Suboptimal inspiration. The cardiac and mediastinal silhouette are within normal limits. IMPRESSION: No acute infiltrates, effusion or congestion. at 2147 Reported and signed by: Maciej Felix M.D. CC: Yamilet Cross MD Technologist: PAULIE MOISE RT(R),CT Trnscrpt Data: 06/29/2018 (2146) [email or web address] Orig Print D/T: S: 06/29/2018 (7268) PAGE 1 Signed R eport TISSUE UAWL1056-82-18 10:15:00Surgical Pathology Report Case: [id number] Authorizing Provider: Amrik Dale MD Collected: 06/03/2018 1533 Ordering Location: [facility] Received: 06/04/2018 0903 Pathologist: [...] OR DYSPLASIA Signing Pathologist Direct Phone Line: [phone] signed by Nanci Brown i, MD on 06/05/2018 at 10:15 [id number] X 3, 60426 X 2Hematemesis. Pr ocedure upper endoscopy A. [...] Immunohistochemistr y technical testing was performed at [facility], Pathology Laboratory where it was [...] to perform high complexity clinical laboratory testing.POCT-GLUCOSE [id number] 17:16:00* Test Item Value Reference Range Interpretation Comments POC-GLUCOSE METER (BEAKER) (test code = 1538) 97 mg/dL 70-110 TESTED AT [facility] [address] [facility] [address] POCT-GLUCOSE [id number] 12:09:00* Test Item Value Reference Range Interpretation Comments POC-GLUCOSE METER (BEAKER) (test code = 1538) 106 mg/dL 70-110 TESTED AT [facility] [address] [facility] [address] POCT-GLUCOSE SBFEP1203-36-40 05:36:00* Test Item Value Reference Range Interpretation Comments POC-GLUCOSE METER (BEAKER) (test code = 1538) 88 mg/dL 70-110 TESTED AT [facility] [address] [facility] [address] PROTHROMBIN TIME/[id number] 03:39:00* Test Item Value Reference Range Interpretation [...] mechanical heart valves.CBC W/PLT COUNT & AUTO XOGHNQAMNZHE5009-76-45 03:36:00* Test Item Value Reference Range Interpretation [...] code = 2801) 0 % 0-0 POCT-GLUCOSE EZIRO1982-37-61 21:17:00* Test Item Value Reference Range Interpretation Comments POC-GLUCOSE METER (BEAKER) (test code = 1538) 145 mg/dL 70-110 H TESTED AT [facility] [address] [facility] [address] POCT-GLUCOSE UTSPO9084-68-73 16:29:00* Test Item Value Reference Range Interpretation Comments POC-GLUCOSE METER (BEAKER) (test code = 1538) 99 mg/dL 70-110 TESTED AT [facility] [address] [facility] [address] POCT-GLUCOSE KHLEX3043-95-82 12:06:00* Test Item Value Reference Range Interpretation Comments POC-GLUCOSE METER (BEAKER) (test code = 1538) 193 mg/dL 70-110 H TESTED AT [facility] [address] [facility] [address] BASIC METABOLIC DIWKL1759-95-03 05:53:00* Test Item Value Reference Range Interpretation [...] CLINICAL DATA TO CALCULATE ESTIMATED GFR. PROTHROMBIN TIME/[id number] 05:44:00* Test Item Value Reference Range Interpretation [...] mechanical heart valves.CBC W/PLT COUNT & AUTO KWKMTIZTHNSI0994-17-41 05:35:00* Test Item Value Reference Range Interpretation [...] code = 2801) 0 % 0-0 POCT-GLUCOSE NDRIZ8904-05-99 20:44:00* Test Item Value Reference Range Interpretation Comments POC-GLUCOSE METER (BEAKER) (test code = 1538) 123 mg/dL 70-110 H TESTED AT [facility] [address] [facility] [address] POCT-GLUCOSE VLVDK5001-86-35 16:40:00* Test Item Value Reference Range Interpretation Comments POC-GLUCOSE METER (BEAKER) (test code = 1538) 167 mg/dL 70-110 H TESTED AT [facility] [address] [facility] [address] POCT-GLUCOSE EAUPL7529-90-89 12:13:00* Test Item Value Reference Range Interpretation Comments POC-GLUCOSE METER (BEAKER) (test code = 1538) 135 mg/dL 70-110 H TESTED AT [facility] [address] [facility] [address] CBC W/PLT COUNT & AUTO ILSZOCRHSXRO3603-43-92 09:34:00* Test Item Value Reference Range Interpretation [...] code = 2801) 0 % 0-0 POCT-GLUCOSE YPGIU9694-20-90 05:36:00* Test Item Value Reference Range Interpretation Comments POC-GLUCOSE METER (BEAKER) (test code = 1538) 95 mg/dL 70-110 TESTED AT [facility] [address] [place] [address] PROTHROMBIN TIME/[id number] 05:14:00* Test Item Value Reference Range Interpretation [...] for pat ients with mechanical heart valves.POCT-GLUCOSE [id number] 20:34:00* Test Item Value Reference Range Interpretation Comments POC-GLUCOSE METER (BEAKER) (test code = 1538) 118 mg/dL 70-110 H TESTED AT [facility] [address] [facility] [address] POCT-GLUCOSE [id number] 16:54:00* Test Item Value Reference Range Interpretation Comments POC-GLUCOSE METER (BEAKER) (test code = 1538) 88 mg/dL 70-110 TESTED AT [facility] [address] [facility] [address] POCT-GLUCOSE [id number] 11:30:00* Test Item Value Reference Range Interpretation Comments POC-GLUCOSE METER (BEAKER) (test code = 1538) 118 mg/dL 70-110 H TESTED AT [facility] [address] [facility] [address] POCT-GLUCOSE [id number] 05:26:00* Test Item Value Reference Range Interpretation Comments POC-GLUCOSE METER (BEAKER) (test code = 1538) 178 mg/dL 70-110 H TESTED AT [facility] [address] [facility] [address] BASIC METABOLIC SCUNN1407-54-21 05:19:00* Test Item Value Reference Range Interpretation [...] CLINICAL DATA TO CALCULATE ESTIMATED GFR. PROTHROMBIN TIME/[id number] 05:04:00* Test Item Value Reference Range Interpretation [...] mechanical heart valves.CBC W/PLT COUNT & AUTO ZFIUHGZPVPWD7321-88-78 04:44:00* Test Item Value Reference Range Interpretation [...] code = 2801) 0 % 0-0 POCT-GLUCOSE JUTML9918-66-33 21:00:00* Test Item Value Reference Range Interpretation Comments POC-GLUCOSE METER (BEAKER) (test code = 1538) 91 mg/dL 70-110 TESTED AT [facility] [address] [facility] [address] POCT-GLUCOSE [id number] 17:08:00* Test Item Value Reference Range Interpretation Comments POC-GLUCOSE METER (BEAKER) (test code = 1538) 102 mg/dL 70-110 TESTED AT [facility] [address] [facility] [address] POCT-GLUCOSE [id number] 12:00:00* Test Item Value Reference Range Interpretation Comments POC-GLUCOSE METER (BEAKER) (test code = 1538) 98 mg/dL 70-110 TESTED AT [facility] [address] [facility] [address] BASIC METABOLIC [id number] 05:14:00* Test Item Value Reference Range Interpretation [...] DATA TO CALCULATE ESTIMATED GFR. BASIC METABOLIC [id number] 01:01:00* Test Item Value Reference Range Interpretation [...] INSUFFICIENT CLINICAL DATA TO CALCULATE ESTIMATED GFR. [id number] 01:00:00* Test Item Value Reference Range Interpretation Comments LIPASE (BEAKER) (test code = 749) 22 U/L 8-78 HEPATIC FUNCTION [id number] 01:00:00* Test Item Value Reference Range Interpretation [...] = 347) 11 U/L 6-50 LACTIC ACID, [id number] 00:53:00* Test Item Value Reference Range Interpretation Comments LACTATE BLOOD VENOUS (2) (BEAKER) (test code = 2872) 0.8 mmol/L 0 .5-2.2 Specimen slightly hemolyzed PT/[id number] 00:46:00* Test Item Value Reference Range Interpretation [...] mechanical heart valves.CBC W/PLT COUNT & AUTO JKONRBKVUIOO1739-71-21 00:21:00* Test Item Value Reference Range Interpretation [...] - PELVIS, RENAL STONE EVAL, WITHOUT IV RAPGUYXZ4272-26-58 22:39:00 Reason for exam:->BACK PAINReason for exam:->DYSURIAFINAL [...] MDReport Verified Date/Time: 05/29/2018 22:39:39 Reading Location: [facility] [id number] Ortho Consult Reading Room ALYSIS W/ REFLEX URINE [...] /HPF SOURCE(BEAKER) (test code = 2795) Stool Jpcnkdrecsyw7476-50-27 06:17:00* Test Item Value Reference Range Interpretation Comments Stool Calprotectin (test code = 25249-1) <16 0-120 Results verified by repeat testingConcentration Interpretation Follow- Up<16 - 50 ug/g Normal None>50 -120 ug/g Borderline Re- evaluate in 4-6 weeks >120 ug/g Abnormal Repeat as clinically indicatedPerformed at: [address] [id number] Director: Veena Martell MD, Phone: [phone] Scott & [facility]hamol Klwsnaehkryt4650-99-95 06:17:00* Test Item Value Reference Range Interpretation Comments Stool Calprotectin (test code = 88256-8) <16 0-120 Results verified by repeat testingConcentration Interpretation Follow- Up<16 - 50 ug/g Normal None>50 -120 ug/g Borderline Re- evaluate in 4-6 weeks >120 ug/g Abnormal Repeat as clinically indicatedPerformed at: [address] [id number] Director: Veena Martell MD, Phone: [phone] Scott & White [facility] Brenhamol Ywyssmzxwqak9141-31-14 06:17:00* Test Item Value Reference Range Interpretation Comments Stool Calprotectin (test code = 06422-7) <16 0-120 Results verified by repeat testingConcentration Interpretation Follow- Up<16 - 50 ug/g Normal None>50 -120 ug/g Borderline Re- evaluate in 4-6 weeks >120 ug/g Abnormal Repeat as clinically indicatedPerformed at: [address] [id number] Director: Veena Martell MD, Phone: [phone] University Medical CenterUrine WBC 2018-04-02 08:35:00* Test Item Value Reference Range Interpretation Comments Urine WBC (test code = 5821-4) 0-5 0-5 [facility] [id number] 08:35:00* Test Item Value Reference Range Interpretation Comments Urine RBC (test code = 69864-7) 0-5 0-5 [facility] Ohxcemqq4355-82-86 08:35:00* Test Item Value Reference Range Interpretation Comments Urine Bacteria (test code = 16080-0) FEW NONE [facility] Epithelial Gfoeu3775-75-57 08:35:00 * Test Item Value Reference Range Interpretation Comments Urine Epithelial Cells (test code = 59369-9) FEW NONE [facility] Gzagy9032-85-15 08:04:00* Test Item Value Reference Range Interpretation Comments Urine Color (test code = 5778-6) YELLOW YELLOW [facility] Xztwebf7360-64-50 08:04:00* Test Item Value Reference Range Interpretation Comments Urine Clarity (test code = 53652-6) SL CLOUDY CLEAR [facility] Center[facility] Specific Eycbuzb5015-30-74 08:04:00 * Test Item Value Reference Range Interpretation Comments Urine Specific [place] (test code = 5811-5) 1.025 1.010-1.02 5 [facility] cO1399-06-33 08:04:00* Test Item Value Reference Range Interpretation Comments Urine pH (test code = 66356-9) 6 5-7 [facility] Leukocyte Uprktxzv1831-23-35 08:04:00* Test Item Value Reference Range Interpretation Comments Urine Leukocyte Esterase (test code = 5799-2) NEGATIVE NEGATIVE [facility] Vmfbedm4057-12-76 08:04:00* Test Item Value Reference Range Interpretation Comments Urine Nitrite (test code = 24213-8) NEGATIVE NEGATIVE [facility] Qgigmxe5395-10-90 08:04:00* Test Item Value Reference Range Interpretation Comments Urine Protein (test code = 5804-0) NEGATIVE NEGATIVE [facility] Glucose (UA)2018-04-02 08:04:00* Test Item Value Reference Range Interpretation Comments Urine Glucose (UA) (test code = 2349-9) NEGATIVE NEGATIVE [facility] Qrdxyiu0739-50-85 08:04:00* Test Item Value Reference Range Interpretation Comments Urine Ketones (test code = 53363-4) 2+ NEGATIVE H [facility] Qxtieepqrtum2683-09-33 08:04:00* Test Item Value Reference Range Interpretation Comments Urine Urobilinogen (test code = 13019-6) 0.2 0.2-1 [facility] Glnqefsjw9486-68-78 08:04:00* Test Item Value Reference Range Interpretation Comments Urine Bilirubin (test code = 1978-6) NEGATIVE NEGATIVE [facility] Ydtbu6244-06-87 08:04:00* Test Item Value Reference Range Interpretation Comments Urine Blood (test code = 19666-1) 1+ NEGATIVE H [facility] Dmawpwe9020-00-42 21:54:00* Test Item Value Reference Range Interpretation Comments Bedside Glucose (test code = 66820-1) 102 70-120 Meter ID: [id number]odium Level 2018-04-01 06:25:00* Test Item Value Reference Range Interpretation Comments Sodium Level (test code = 2951-2) 136 136-145 [facility] Vppgd5225-39-33 06:25:00* Test Item Value Reference Range Interpretation Comments Potassium Level (test code = 2823-3) 3.7 3.5-5.1 [facility] Yueef4290-54-80 06:25:00* Test Item Value Reference Range Interpretation Comments Chloride Level (test code = 2075-0) 106 98-107 [facility] CenterCarbon Dioxide Rpgzu0663-00-20 06:25:00* Test Item Value Reference Range Interpretation Comments Carbon Dioxide Level (test code = 2028-9) 22 22-29 [facility] CenterAnion Usj5907-36-57 06:25:00* Test Item Value Reference Range Interpretation Comments Anion Gap (test code = 22362-2) 11.7 8-16 [facility] CenterBlood Urea Fuchdegg4664-31-01 06:25:00* Test Item Value Reference Range Interpretation Comments Blood Urea Nitrogen (test code = 3094-0) 9 7-26 [facility] CenterCreatinine2019-02-11 06:25:00* Test Item Value Reference Range Interpretation Comments Creatinine (test code = 2160-0) 0.69 0.57-1.11 [facility] CenterBUN/Creatinine Ixzzn7408-26-59 06:25:00* Test Item Value Reference Range Interpretation Comments BUN/Creatinine Ratio (test code = 3097-3) 13 6-25 [facility] CenterEstimat Glomerular Filtration Rate 2018-04-01 06:25:00* Test Item Value Reference Range Interpretation Comments Estimat Glomerular Filtration Rate (test code = 548844920) > 60 >60 Ranges were taken from the National Kidney Disease Education Program and the [facility] Kidney Foundation literature.Reference ranges:60 or greater: Wltzny49-45 ( for 3 consecutive months): Chronic kidney disease 15 or less: Kidney failureCHI Hca Houston Healthcare WestGlucose Fxzlg3257-14-65 06:25:00* Test Item Value Reference Range Interpretation Comments Glucose Level (test code = SFE4413) 95 74-118 [facility] CenterCalcium Ewxif1784-13-76 06:25:00* Test Item Value Reference Range Interpretation Comments Calcium Level (test code = 79959-5) 8.1 8.4-10.2 L [facility] CenterTotal Nnxdqisps0515-98-92 06:25:00* Test Item Value Reference Range Interpretation Comments Total Bilirubin (test code = 1975-2) 0.2 0.2-1.2 [facility] CenterAspartate Amino Transf (AST/SGOT) 2018-04-01 06:25:00* Test Item Value Reference Range Interpretation Comments Aspartate Amino Transf (AST/SGOT) (test code = Aspartate Amino Transf (AST/SGOT)) 17 5-34 [facility] CenterAlanine Aminotransferase (ALT/SGPT) 2018-04-01 06:25:00* Test Item Value Reference Range Interpretation Comments Alanine Aminotransferase (ALT/SGPT) (test code = 1742-6) 15 0-55 [facility] CenterTotal Ytwtkio9451-15-09 06:25:00* Test Item Value Reference Range Interpretation Comments Total Protein (test code = 2885-2) 6.4 6.5-8.1 L [facility] CenterAlbumin2019-02-11 06:25:00* Test Item Value Reference Range Interpretation Comments Albumin (test code = 1751-7) 2.9 3.5-5.0 L [facility] CenterGlobulin2019-02-11 06:25:00* Test Item Value Reference Range Interpretation Comments Globulin (test code = 96755-2) 3.5 2.3-3.5 [facility] CenterAlbumin/Globulin Okxfw0883-44-89 06:25:00 * Test Item Value Reference Range Interpretation Comments Albumin/Globulin Ratio (test code = 1759-0) 0.8 0.8-2.0 [facility] CenterAlkaline Sqfzdpxvuhh6699-79-44 06:25:00* Test Item Value Reference Range Interpretation Comments Alkaline Phosphatase (test code = 6768-6) 65 40-150 [facility] CenterWhite Blood Jlmdz9564-21-51 05:55:00* Test Item Value Reference Range Interpretation Comments White Blood Count (test code = 6690-2) 6.38 4.8-10.8 [facility] CenterRed Blood Gehjz6078-73-42 05:55:00* Test Item Value Reference Range Interpretation Comments Red Blood Count (test code = 789-8) 3.73 3.6-5.1 [facility] CenterHemoglobin2019-02-11 05:55:00* Test Item Value Reference Range Interpretation Comments Hemoglobin (test code = 98469-1) 11.7 12.0-16.0 L [facility] CenterHematocrit2019-02-11 05:55:00* Test Item Value Reference Range Interpretation Comments Hematocrit (test code = 4544-3) 35.9 34.2-44.1 [facility] CenterMean Corpuscular Rucjgf5110-52-26 05:55:00* Test Item Value Reference Range Interpretation Comments Mean Corpuscular Volume (test code = 787-2) 96.2 81-99 [facility] CenterMean Corpuscular Zbtanrsgmi3379-39-56 05:55:00* Test Item Value Reference Range Interpretation Comments Mean Corpuscular Hemoglobin (test code = 785-6) 31.4 28-32 [facility] CenterMean Corpuscular Hemoglobin Concent 2018-04-01 05:55:00* Test Item Value Reference Range Interpretation Comments Mean Corpuscular Hemoglobin Concent (test code = 786-4) 32.6 31-35 [facility] CenterRed Cell Distribution Hfxio3913-96-41 05:55:00* Test Item Value Reference Range Interpretation Comments Red Cell Distribution Width (test code = 05315-9) 12.7 11.7 -14.4 [facility] CenterPlatelet Jmtcn8840-81-71 05:55:00* Test Item Value Reference Range Interpretation Comments Platelet Count (test code = 777-3) 217 140-360 [facility] CenterNeutrophils (%) (Auto)2018-04-01 05:55:00 * Test Item Value Reference Range Interpretation Comments Neutrophils (%) (Auto) (test code = 31391-5) 49.3 38.7-80.0 [facility] CenterLymphocytes (%) (Auto)2018-04-01 05:55:00 * Test Item Value Reference Range Interpretation Comments Lymphocytes (%) (Auto) (test code = 736-9) 38.4 18.0-39.1 [facility] CenterMonocytes (%) (Auto)2018-04-01 05:55:00* Test Item Value Reference Range Interpretation Comments Monocytes (%) (Auto) (test code = 5905-5) 6.3 4.4-11.3 [facility] CenterEosinophils (%) (Auto)2018-04-01 05:55:00 * Test Item Value Reference Range Interpretation Comments Eosinophils (%) (Auto) (test code = 713-8) 5.2 0.0-6.0 [facility] CenterBasophils (%) (Auto)2018-04-01 05:55:00* Test Item Value Reference Range Interpretation Comments Basophils (%) (Auto) (test code = 706-2) 0.6 0.0-1.0 [facility] CenterIM GRANULOCYTES %2018-04-01 05:55:00* Test Item Value Reference Range Interpretation Comments IM GRANULOCYTES % (test code = IM GRANULOCYTES %) 0.2 0.0- 1.0 [facility] CenterNeutrophils # (Auto)2018-04-01 05:55:00* Test Item Value Reference Range Interpretation Comments Neutrophils # (Auto) (test code = 751-8) 3.2 2.1-6.9 [facility] CenterLymphocytes # (Auto)2018-04-01 05:55:00* Test Item Value Reference Range Interpretation Comments Lymphocytes # (Auto) (test code = 84462-0) 2.5 1.0-3.2 [facility] CenterMonocytes # (Auto)2018-04-01 05:55:00* Test Item Value Reference Range Interpretation Comments Monocytes # (Auto) (test code = 742-7) 0.4 0.2-0.8 [facility] CenterEosinophils # (Auto)2018-04-01 05:55:00* Test Item Value Reference Range Interpretation Comments Eosinophils # (Auto) (test code = 711-2) 0.3 0.0-0.4 [facility] CenterBasophils # (Auto)2018-04-01 05:55:00* Test Item Value Reference Range Interpretation Comments Basophils # (Auto) (test code = 704-7) 0.0 0.0-0.1 [facility] CenterAbsolute Immature Granulocyte (auto 2018-04-01 05:55:00* Test Item Value Reference Range Interpretation Comments Absolute Immature Granulocyte (auto (sidney t code = Absolute Immature Granulocyte (auto) 0.01 0-0.1 [facility] CenterClostridium Difficile Toxin A & B 2018-03-31 14:58:00* Test Item Value Reference Range Interpretation Comments Clostridium Difficile Toxin A & B (test code = 385295691) NEGATIVE NEGATIVE Testing on stool aspirate specimens is outside process validation engineer claims since specime n type not validated on this assay.[facility] Clostridium Difficile Toxin A & B8724-99-84 14:58:00* Test Item Value Reference Range Interpretation Comments Clostridium Difficile Toxin A & B (test code = 363356018) NEGATIVE NEGATIVE Testing on stool aspirate specimens is outside process validation engineer claims since specime n type not validated on this assay.[facility] Clostridium Difficile Toxin A & D6412-73-34 14:58:00* Test Item Value Reference Range Interpretation Comments Clostridium Difficile Toxin A & B (test code = 233135392) NEGATIVE NEGATIVE Testing on stool aspirate specimens is outside process validation engineer claims since specime n type not validated on this assay.[facility] Clostridium Difficile Toxin A & X9905-38-87 14:58:00* Test Item Value Reference Range Interpretation Comments Clostridium Difficile Toxin A & B (test code = 289644352) NEGATIVE NEGATIVE Testing on stool aspirate specimens is outside process validation engineer claims since specime n type not validated on this assay.[facility] Prothrombin Qzie4395-22-55 06:23:00* Test Item Value Reference Range Interpretation Comments Prothrombin Time (test code = 5902-2) 14.4 11.9-14.5 [facility] CenterProthromb Time International Ratio 2018-03-31 06:23:00* Test Item Value Reference Range Interpretation Comments Prothromb Time International Ratio (test code = 6301-6) 1.03 Oral Anticoagulant Therapy INR Values:1. Low Intensity Therapy 1.5 - 2.02 . Moderate Intensity Therapy 2.0 - 3.03. High Intensity Therapy(1) 2.5 - 3. 54. High Intensity Therapy(2) 3.0 - 4.05. Panic Value INR > 5.0 [facility]2018-03-30 18:58:00* Test Item Value Reference Range Interpretation Comments Stool Lactoferrin (LAB) (test code = 80955-8) NEGATIVE NEGATIVE Testing on stool aspirate specimens is outside process validation engineer claims since specime n type not validated on this assay.[facility]ertool Lactoferrin (LAB)2018-03-30 18:58:00* Test Item Value Reference Range Interpretation Comments Stool Lactoferrin (LAB) (test code = 33120-1) NEGATIVE NEGATIVE Testing on stool aspirate specimens is outside process validation engineer claims since specime n type not validated on this assay.[facility]ertool Lactoferrin (LAB)2018-03-30 18:58:00* Test Item Value Reference Range Interpretation Comments Stool Lactoferrin (LAB) (test code = 67910-3) NEGATIVE NEGATIVE Testing on stool aspirate specimens is outside process validation engineer claims since specime n type not validated on this assay.[facility]ertool Lactoferrin (LAB)2018-03-30 18:58:00* Test Item Value Reference Range Interpretation Comments Stool Lactoferrin (LAB) (test code = 28076-5) NEGATIVE NEGATIVE Testing on stool aspirate specimens is outside process validation engineer claims since specime n type not validated on this assay.[facility] CenterLactic Acid Fmjam8816-59-75 04:13:00* Test Item Value Reference Range Interpretation Comments Lactic Acid Level (test code = Lactic Acid Level) 8.5 4.5- 19.8 [facility] CenterLactic Acid Fcggd6425-46-18 04:13:00* Test Item Value Reference Range Interpretation Comments Lactic Acid Level (test code = Lactic Acid Level) 8.5 4.5- 19.8 [facility] CenterLactic Acid Jbfwg9400-80-87 04:13:00* Test Item Value Reference Range Interpretation Comments Lactic Acid Level (test code = Lactic Acid Level) 8.5 4.5- 19.8 [facility] CenterLactic Acid Hutth1048-78-26 04:13:00* Test Item Value Reference Range Interpretation Comments Lactic Acid Level (test code = Lactic Acid Level) 8.5 4.5- 19.8 [facility] CenterTriglycerides Ukkwq0487-95-21 17:29:00* Test Item Value Reference Range Interpretation Comments Triglycerides Level (test code = 2571-8) 88 0-149 [facility] CenterCholesterol Npwcf9640-09-08 17:29:00* Test Item Value Reference Range Interpretation Comments Cholesterol Level (test code = 2093-3) 176 0-199 Less than 200 mg/dL Low Zxag060 - 239 mg/dL Borderline Jotk179 m g/dl and greater High Risk [facility] CenterLDL Kcyaqbiudeg9405-74-90 17:29:00* Test Item Value Reference Range Interpretation Comments LDL Cholesterol (test code = 2089-1) 106 60-130 [facility] CenterHDL Lwmhxceeggc6575-05-76 17:29:00* Test Item Value Reference Range Interpretation Comments HDL Cholesterol (test code = 2085-9) 52 40-60 [facility] CenterCholesterol/HDL Hmuwg6031-18-57 17:29:00 * Test Item Value Reference Range Interpretation Comments Cholesterol/HDL Ratio (test code = 9830-1) 3.4 3.0-3.6 [facility] CenterHemoglobin A1c Jlxzcda5592-98-37 17:20:00 * Test Item Value Reference Range Interpretation Comments Hemoglobin A1c Percent (test code = Hemoglobin A1c Percent) 7.2 4.0-7.0 H [facility] CenterHemoglobin A1c Bcykqlp8244-62-23 17:20:00 * Test Item Value Reference Range Interpretation Comments Hemoglobin A1c Percent (test code = Hemoglobin A1c Percent) 7.2 4.0-7.0 H [facility] CenterHemoglobin A1c Ewpghvp8994-33-89 17:20:00 * Test Item Value Reference Range Interpretation Comments Hemoglobin A1c Percent (test code = Hemoglobin A1c Percent) 7.2 4.0-7.0 H [facility] CenterHemoglobin A1c Dpfstol0029-16-14 17:20:00 * Test Item Value Reference Range Interpretation Comments Hemoglobin A1c Percent (test code = Hemoglobin A1c Percent) 7.2 4.0-7.0 H [facility] CenterCT ABDOMEN/PELVIS S4400-21-44 16:57:00 [place] [address] Patient Name: JESUS ASCENCIO MR #: [id number] : 1955 Age/Sex: 63/F Req #: [id number] Adm Physician: NIKKO OCONNOR MD Ordered by: ARGELIA FRAGA MD Report #: [id number] Location: [facility] Room/Bed: [place] [address] Procedure: [id number] CT/CT ABDOMEN/PELVIS W Exam Date: Exam Time: [...] PM Dictated By: ODALYS LEDEZMA MD 17 02 Transcribed By: DARION on 03/28/18 1307 COPY TO: ARGELIA FRAGA MD Wdiuon1467-35-64 14:54:00* Test Item Value Reference Range Interpretation Comments Lipase (test code = 3040-3) [facility] CenterLipase2019-02-07 14:54:00* Test Item Value Reference Range Interpretation Comments Lipase (test code = 3040-3) [facility] CenterABDOMEN-1VIEW (KUB)2018-03-28 13:22:00 [facility] [address] [place] [address] Patient Name: JESUS ASCENCIO MR #: [id number] : 1955 Age/Sex: 63/F Req #: [id number] Adm Physician: Ordered by: ARGELIA FRAGA MD Report #: [id number] Location: ER Room/Bed: Procedure: [id number] DX/AB DOMNICLOE-VIEW (KU) Exam Date: 03/28/18 Exam Time: 130 0 [...] 1325 Transcribed By: DARION on 03/28/18 1325 ROBOTYPE OPERATOR Y TO: ARGELIA FRAGA MD CT ABDOMEN/PELVIS P8325-68-58 11:46:00 [place] [address] Patient Name: JESUS ASCENCIO MR #: [id number] : 1955 Age/Sex: 62/F Req #: [id number] Adm Physician: Ordered by: TONYA ALANIS MD Report #: [id number] Location: ER R oom/Bed: Procedure: [id number] CT/CT A BDOMEN/PELVIS W Exam Date: 12/28/17 [...] 1153 Transcribed By: DARION on 12/28/17 1153 ROBOTYPE OPERATOR Y TO: TONYA ALANIS MD CT CHEST R0391-05-74 11:40:00 [place] [address] Patient Name: JESUS ASCENCIO MR #: [id number] : 1955 Age/Sex: 62/F Req #: [id number] Adm Physician: Ordered by: TONYA ALANIS MD Report #: [id number] Location: [facility]/Bed: Procedure: [id number] CT/CT C HEST W Exam Date: 12/28/17 [...] COPY TO: TONYA ALANIS MD Phenytoin (Dilantin) Qhhbp4094-50-73 10:11:00* Test Item Value Reference Range Interpretation Comments Phenytoin (Dilantin) Level (test code = 3968-5) 13.41 10-20 [facility] CenterPhenytoin (Dilantin) Lxrkv4310-12-28 10:11:00* Test Item Value Reference Range Interpretation Comments Phenytoin (Dilantin) Level (test code = 3968-5) 13.41 10-20 [facility] CenterCHEST 2 TIQWU2325-42-16 09:55:00 [place] [address] Patient Name: JESUS ASCENCIO MR #: [id number] : 1955 Age/Sex: 62/F Req #: [id number] Adm Physician: Ordered by: TONYA ALANIS MD Report #: [id number] Location: [facility] [place]/Bed: Procedure: [id number] DX/CHES T 2 VIEWS Exam Date: 12/28/17 [...] TO: Tobias ALANIS MD Activated Partial Thromboplast Ozcf4790-20-91 09:25:00* Test Item Value Reference Range Interpretation Comments Activated Partial Thromboplast Time (test code = 83062-6) 31.9 23.8-35.5 [facility] CenterCreatine Kinase QZ9077-89-14 09:09:00* Test Item Value Reference Range Interpretation Comments Creatine Kinase MB (test code = 28961-2) 0.70 0-5.0 [facility] CenterTroponin T7465-26-69 09:09:00* Test Item Value Reference Range Interpretation Comments Troponin I (test code = BFL7828) 0.001 0-0.300 [facility] CenterMagnesium Jamfm3313-33-17 09:02:00* Test Item Value Reference Range Interpretation Comments Magnesium Level (test code = 24260-7) 2.3 1.3-2.1 H [facility] CenterCreatine Ufqcmg6099-34-98 09:02:00* Test Item Value Reference Range Interpretation Comments Creatine Kinase (test code = 2157-6) 118 29-168 [facility] CenterURINE AND TERRI9925-44-04 02:30:00 Negative *NA*(05/28/16 9:30 PM)[facility] XHIQJ5124-37-49 02:30:00 Large *ABN*(05/28/16 9:30 PM)[facility] OVUNA0153-73-49 02:30:00 Marked *ABN*(05/28/16 9:30 PM)[facility] JGIJU3476-94-00 02:30:00 Yellow *NA*(05/28/16 9:30 PM)[facility] SMKBV4688-42-78 02:30:00 1.018[facility] KZNDA2577-00-03 02:30:006.0[facility] IVTEL0134-21-89 02:30:0010[facility] AND QOIQB4581-08-88 02:30:00 >182[facility] AND QITAF5343-67-41 02:30:00Positive *ABN*(05/28/16 9:30 PM)[facility] JEZYX3050-65-79 02:30:00Large *ABN*(05/28/16 9:30 PM)[facility]annCARDIAC BEVPEED6099-83-02 23:19:00<0.02[facility] CARDIAC TVOWKKB6845-26-89 23:19:58465Jazajmkh HermannCARDIAC VDGALDI4434-40-69 23:19:001.8[facility]annCARDIAC ANVHDFM7662-66-41 23:19:001.3[facility] CHEM NKDSC9977-84-02 23:19:0070[facility]annCHEM DTBPY8779-18-59 23:19:0015 [facility]annCHEM NHBFF0360-03-15 23:19:0021[facility]annCHEM PANEL 2016-05-28 23:19:003.4[facility]annCHEM LEHRF6750-17-10 23:19:007.8[facility]annCHEM BNJXB5511-20-38 23:19:008.6[facility]annCHEM MCNTN0184-86-14 23:19:000.8[facility]annCHEM XOZJB0131-22-33 23:19:0017.3[facility]annCHEM RXAER1991-97-17 23:19:004.4[facility]annCHEM JEXRR9905-05-93 23:19:0024 [facility]annCHEM RVCEI5807-27-86 23:19:000.3[facility]annCHEM PANEL 2016-05-28 23:19:0090[facility] HermannCHEM EBIMJ5063-89-57 23:19:53127Tmthuhyq HermannCHEM RVYGR5260-14-95 23:19:003.3[facility] HermannCHEM VHMNY9866-02-39 23:19:97333Okxsioww HermannCHEM GIRKE8477-48-60 23:19:11410Twrboslx HermannCHEM BECGL7482-22-60 23:19:0023[facility] HermannCHEM SXEWC2536-35-70 23:19:000.90 [facility]annCHEM BSHRO0313-05-63 23:19:0022[facility]annCHEM PANEL 2016-05-28 23:19:0083[facility] VfsymxyTFPMJXALCM6157-49-04 23:19:0013.3[facility] EzkgjblPDYCTHGQFU3890-18-96 23:19:65521Wxdmlmxv VhpgkauCQQCZPULXL0498-05-29 23:19:008.2[facility] LlploxeAXSLXFACDY9334-25-86 23:19:0034.2[facility] IDIXVFRKAP3525-17-03 23:19:00* Test Item Value Reference Range Interpretation Comments MCH (test code = MCH) 31.6 pg 27.0-31.0 [facility] IcatkmuFNWFKVHKMJ2735-31-39 23:19:0013.3[facility]annHEMATOLOGY 2016-05-28 23:19:0092.4[facility] MxcowacYFYVTRZBGY0543-87-05 23:19:0038.9[facility] ZzjedvzAXVUSANXUR7143-46-75 23:19:004.21[facility] RuqldfnQSQQZUZRKB1438-59-83 23:19:009.3[facility] UhyippjVGTPODUCQV1161-18-56 23:19:001.05[facility] LCVLLVFZHS5078-33-13 23:19:00* Test Item Value Reference Range Interpretation Comments PT (test code = PT) 13.9 s 12.0-14.7 [facility] YdsinkjVFTLJJEBHW3700-18-09 23:19:00* Test Item Value Reference Range Interpretation Comments PTT (test code = PTT) 29.9 s 22.9-35.8 [facility] SsebxahNHLMRMZHIS3673-77-90 23:19:000.9[facility]annHEMATOLOGY 2016-05-28 23:19:002.9[facility] EwcsttrEKPPADRYUP4941-23-63 23:19:004.7[facility] VirlzeeFHNWGYOZMS5747-13-24 23:19:005.4[facility] XxrijmpTWRWRVGMTX9330-97-68 23:19:000.4[facility] GdwwajhNQZTISUYWK6885-65-50 23:19:000.1[facility] AHYBHPAUPU9483-00-36 23:19:000.5[facility] DeqeeiuRBVFGSWDXO9587-07-99 23:19:00 57.8[facility] TaznfwzVZRKKHJIRJ7698-64-36 23:19:0031.0[facility]annHEMATOLOGY 2016-05-28 23:19:005.6[facility] AajhuyuUYMALIMRX2262-38-99 22:30:85130Yagnajmr MiwdhaqCLUHFLKSI6272-70-06 22:29:0039[facility] HtupgihYWUAHVMOL5811-79-41 22:29:00<0.02[facility] DppbhgqMLAQPVETO3051-16-82 22:29:0010[facility] MBIJGXYCP8881-32-91 22:29:00330Oqhsliuv FsebjswGTITMTNGT9357-25-77 22:29:0018 [facility] ZdmnaccRPRQPJPBI8996-34-91 22:29:0095[facility]annCHEMISTRY 2011-07-14 22:29:0025[facility] PazvvwqGDNADVVCN4659-91-65 22:29:009.0[facility] MozwbfgZVMGQEVRS1084-72-55 22:29:000.7[facility] AjkmijxUUHFKKSEH0175-38-60 22:29:52152Jlfpizqf OrwaqecGQQRIANTJ0685-32-67 22:29:004.2[facility] UPGUFGLDR9870-49-21 22:29:0016.2[facility] XiqsmjgXAGGLPRPW1388-11-71 22:29:00< 0.003[facility] XeagnqsYDWETZOYI2721-21-25 22:29:00<3[facility]annHEMATOLOGY 2011-07-14 22:29:75170Kjwokabu FregvgaJILADIEMFR6081-44-97 22:29:0013.1[facility] IuwfsuhPHGNNBKRLB6279-77-95 22:29:0034.3[facility] HlfnhbaSKXBZFOZKY8536-98-03 22:29:008.0[facility] GasvukrKSLOUKABEK7336-68-00 22:29:0013.6[facility] TUGYUABTKB7504-62-79 22:29:00* Test Item Value Reference Range Interpretation Comments MCH (test code = MCH) 31.7 pg 27.0-31.0 H [facility] OjhxwkxGEKBETWYOT7641-39-14 22:29:0092.5[facility]annHEMATOLOGY 2011-07-14 22:29:0039.7[facility] RvjhmwzHYGBMQYTZS5454-10-34 22:29:004.29[facility] AktersmTJPSWKFKRP4504-61-19 22:29:0014.1[facility] DpsdfilRDJUIMKTQN2001-54-23 22:29:000.93[facility] LupuzchRHDOIMGESV3701-07-53 22:29:00* Test Item Value Reference Range Interpretation Comments PTT (test code = PTT) 22.9 s 22.9-35.8 N [facility] ZgbkbupXRIJAZJXSD2198-83-00 22:29:00* Test Item Value Reference Range Interpretation Comments PT (test code = PT) 12.5 s 12.0-14.7 N [facility] IedprinWQMMZSQFNK9855-76-99 22:29:00Normal (07/14/2011 17:29:00) [facility] EvpbgcfEIRJAGRLNG0301-26-81 22:29:00Normal (07/14/2011 17:29:00) [facility] MehgtcqLPTAJKAFCK0335-41-89 22:29:0010.5[facility]annHEMATOLOGY 2011-07-14 22:29:002.9[facility] VmzdwkmFYSAKVFKON8940-10-58 22:29:000.0[facility] JhkglfwFPPALWJSTH2934-54-20 22:29:000.2[facility] IznctfdYBYPFVWUTO0097-41-16 22:29:000.0[facility] KxszljmEYLKFRHFIT6829-54-72 22:29:001.6[facility] LVUVYIWWJM3090-41-85 22:29:003.9[facility] QlzfjrvURPXPXFLVY8865-39-82 22:29:00 20.3[facility] YytugbqZNQNDZQQEM3486-42-69 22:29:000.5[facility]annHEMATOLOGY 2011-07-14 22:29:0074.2[facility] BmuifyyAYQUZTBKAX4457-24-38 21:52:00Negative *NA*(07/14/2011 16:52:00) [facility] Ayo
[2019-10-27] MEDS ORDERED: SODIUM CHLORIDE 0.9% 1000ML 1,000 ML IV ONE ×2 (02:30→05:30)
[2019-10-27 02:31] LABS: BASOPHILS # (AUTO) 0.1 (0.0-0.1); BASOPHILS % 0.5 % (0.0-1.0); EOSINOPHILS # (AUTO) 0.4 (0.0-0.4); EOSINOPHILS % 4.5 % (0.0-6.0); HEMATOCRIT 40.4 % (34.2-44.1); HEMOGLOBIN 13.3 g/dL (12.0-16.0); LYMPHOCYTES % 40.6 % (18.0-39.1); MEAN CORPUSCULAR HEMOGLOBIN 30.9 pg (28-32); MEAN CORPUSCULAR HGB CONC 32.9 g/dL (31-35); MONOCYTES # (AUTO) 0.5 (0.2-0.8); MONOCYTES % 5.2 % (4.4-11.3); NEUTROPHILS # (AUTO) 4.8 (2.1-6.9); NEUTROPHILS % 48.9 % (38.7-80.0); PLATELET COUNT 275 x10e3/uL (140-360); RED CELL DISTRIBUTION WIDTH 12.7 % (11.7-14.4)
--- NOTE | 2019-10-27 02:35 | Emergency Department Note ---
History of Present Illnes History of Present Illness Chief Complaint: Abdominal Complaints History of Present Illness This is a 64 year old female PRESENTS TO ED WITH REPORT OF ABDOMINAL/LUMBAR BACK PAIN AND BLOOD IN FECES X4 IN PAST 12 HRS; PT HAS H/O COLON CANCER WITH COLON RESECTION . Historian: Patient Arrival Mode: Car Onset (how long ago): hour(s) (12) Location: LOWER ABD Quality: PAIN AND RECTAL BLEEDING Radiation: Reports non-radiation Severity: moderate Onset quality: sudden Duration (how long): hour(s) (12) Timing of current episode: constant Progression: worsening Chronicity: new Context: Denies recent illness, Denies recent surgery, Denies trauma/injury Relieving factors: none Exacerbating factors: none Associated symptoms: Reports denies other symptoms Past Medical/Family History Physician Review I have reviewed the patient's past medical and family history. Any updates have been documented here. Past Medical History Recent Fever: No Clinical Suspicion of Infectio: No New/Unexplained Change in Ment: No Past Medical History: Hypertension, Diabetes, COPD, CHF, MO, Cancer, Seizure Disorder, Migraines, Anemia, DVT/PE Other Medical History: COLON CA Past Surgical History: PCI, Colon Resection Other Surgery: COLON PORT (MULTIPLE) CARDIAC STENTS-Per Dr. Blue's report no stent visualized when angiogram performed. HX OF COLOSTOMY Social History Smoking Cessation: Former smoker Alcohol Use: None Any Illegal Drug Use: No Family History Family history of heart diseas: Yes Other family history HTN,DM,CAD Other Last Tetanus: UNKNOWN Review of Systems Review of Systems Constitutional: Reports no symptoms EENTM: Reports no symptoms Cardiovascular: Reports no symptoms Respiratory: Reports no symptoms Gastrointestinal: Reports as per HPI Genitourinary: Reports no symptoms Musculoskeletal: Reports no symptoms Integumentary: Reports no symptoms Neurological: Reports no symptoms Psychological: Reports no symptoms Endocrine: Reports no symptoms Hematological/Lymphatic: Reports no symptoms Physical Exam Related Data Allergies: Coded Allergies: ceftriaxone (Verified Allergy, Mild, HIVES, 08/18/19) prochlorperazine (Verified Allergy, Mild, BLACK OUTS, 08/18/15) Triage Vital Signs Vital Signs Date Time Temp Pulse Resp B/P (MAP) Pulse Ox O2 Delivery O2 Flow Rate FiO2 10/27/19 01:42 97.9 81 17 172/91 98 Room Air Vital signs reviewed: Yes Physical Exam CONSTITUTIONAL Constitutional: Present well-developed, Present well-nourished, Present distressed (MILD) HENT HENT: Present normocephalic, Present atraumatic, Present oropharynx clear/moist, Present nose normal HENT L/R: Present left ext ear normal, Present right ext ear normal EYES Eyes: Reports PERRL, Reports conjunctivae normal NECK Neck: Present ROM normal PULMONARY Pulmonary: Present effort normal, Present breath sounds normal CARDIOVASCULAR Cardiovascular: Present regular rhythm, Present heart sounds normal, Present capillary refill normal, Present normal rate GASTROINTESTINAL Abdominal: Present soft, Present bowel sounds normal, Present tender (MODERATE SUPRA PUBIC AND LLQ) GENITOURINARY Genitourinary: Present exam deferred SKIN Skin: Present warm, Present dry MUSCULOSKELETAL Musculoskeletal: Present ROM normal NEUROLOGICAL Neurological: Present alert, Present oriented x 3, Present no gross motor or sensory deficits PSYCHOLOGICAL Psychological: Present mood/affect normal, Present judgement normal Results Laboratory Laboratory Laboratory Tests Test 10/27/19 01:40 Lab results reviewed: Yes Imaging Imaging results reviewed: Yes Impressions Procedure: [id number] CT/CT ABDOMEN/PELVIS W Exam Date: Exam Time: REPORT STATUS: Signed EXAM: CT Abdomen and Pelvis WITH contrast INDICATION: ^ABD PAIN, RECTAL BLEEDING, H/O COLON CANCER WITH RESECTION ^Y COMPARISON: CT abdomen/pelvis dated 08/18/2019 TECHNIQUE: Abdomen and pelvis were scanned utilizing a multidetector helical scanner from the lung base to the pubic symphysis after administration of IV contrast. Coronal and sagittal reformations were obtained. Dose modulation, iterative reconstruction, and/or weight based adjustment of the mA/kV was utilized to reduce the radiation dose to as low as reasonably achievable. Routine protocol was performed. Scan was performed when during portal venous phase. IV CONTRAST: 100 mL of Isovue-370 ORAL CONTRAST: Gastroview COMPLICATIONS: None RADIATION DOSE: Total DLP: 665.34 mGy*cm Estimated effective dose: (DLP x 0.015 x size factor) mSv CTDIvol has been reviewed. It is below the limits set by the Radiation Protocol Committee (RPC). FINDINGS: LINES and TUBES: None. LOWER THORAX: More conspicuous 4 mm right lower lobe groundglass nodule (series 2, image 6). Paramediastinal right lower lobe focal area of groundglass haziness. HEPATOBILIARY: Hepatic steatosis. No focal hepatic lesions. No biliary ductal dilation. GALLBLADDER: Surgically absent. SPLEEN: No splenomegaly. PANCREAS: No focal masses or ductal dilatation. ADRENALS: No adrenal nodules KIDNEYS/URETERS: Kidneys enhance symmetrically. No hydronephrosis. No cystic or solid mass lesions. No stones. GI TRACT: No abnormal distention, wall thickening, or evidence of bowel obstruction. Intact sigmoid anastomosis. Appendix is not visualized. Scattered colonic diverticula without evidence of diverticulitis. PELVIC ORGANS/BLADDER: Unremarkable. Pelvic surgical clips are again seen. LYMPH NODES: No lymphadenopathy. VESSELS: Unremarkable. PERITONEUM / RETROPERITONEUM: No free air or fluid. BONES: Unremarkable. SOFT TISSUES: Small fat-containing umbilical hernia. Bilateral gluteal injection granulomas. IMPRESSION: 1. More conspicuous 4 mm right lower lobe groundglass lung nodule. Attention on follow-up examination in 6 months. 2. Paramediastinal right lower lobe focal area of groundglass haziness, new from prior exam, could represent subsegmental atelectasis versus developing pneumonia in the appropriate clinical context. 3. No acute inflammatory process in the abdomen/pelvis. 4. Hepatic steatosis. Signed by: Dr. Satya Stuart MD on 10/27/2019 4:31 AM Dictated By: SATYA STUART MD 0 Transcribed By: DARION on 10/27/19430 COPY TO: ERICKA UNGER MD~ Assessment & Plan Medical Decision Making MDM PT WITH H/O COLON CANCER WITH RESECTION WITH LOWER ABD PAIN AND RECTAL BLEEDING CBC, CMP, UA, CT ABD/PELVIS ORDERED TO EVAL FOR ANEMIA, COLITIS, DIVERTICULITIS, BOWEL OBSTRUCTION, UTI, ELECTROLYTE ABNORMALITY MORPHINE 4 MG IV ORDERED ZOFRAN 4 MG IV ORDERED 0345 PT SPIKED A TEMP OF 100.6 AND HEART RATE NOW 92., BLOOD CULTURES, LACTIC ACID, ZOSYN 3.375 GRAMS IV ORDERED SOURCE UTI INITIAL LACTIC ACID 3.9 repeat lactic acid 3.[address] JONES, ADMIT INPATIENT Assessment & Plan Final Impression: (1) Fever (2) UTI (urinary tract infection) (3) Abdominal pain (4) Rectal bleeding (5) Pneumonia (6) Severe sepsis Depart Disposition: ADMITTED Last Vital Signs Date Time Temp Pulse Resp B/P (MAP) Pulse Ox O2 Delivery O2 Flow Rate FiO2 9/7/20 01:42 97.9 81 17 172/91 98 Room Air Home Meds Active Scripts Ondansetron Hcl* (ZOFRAN*) 4 Mg Tablet, 4 MG PO Q4HR PRN for nausea/vomiting, #40 Prov:NIKKO OCONNOR MD 04/01/18 Reported Medications Pantoprazole Sodium* (PROTONIX) 40 Mg Tablet.dr, 40 MG PO DAILY, TAB 12/28/17 Zolpidem Tartrate (AMBIEN) 10 Mg Tablet, 10 MG PO HS PRN for INSOMNIA, #30 TAB 12/28/17 Paroxetine Hcl (PAROXETINE HCL) 20 Mg Tablet, 20 MG PO DAILY, #30 TAB 12/28/17 Magnesium Oxide (MAGNESIUM OXIDE) 400 Mg Tablet, 400 MG PO DAILY, TAB 12/28/17 Phenazopyridine Hcl (PHENAZOPYRIDINE HCL) 100 Mg Tablet, 100 MG PO AC, TAB 12/28/17 Hydrocodone Bit/Acetaminophen (HYDROCODON-ACETAMINOPHN 10-325) 1 Each Tablet, 1 EA PO Q4HR PRN for PAIN 12/28/17 Insulin Glargine (LANTUS) 100 Units/Ml Ml, UNITS SC UD SLIDING SCALE PRN DAILY/HS 10/15/15 Sertraline Hcl (ZOLOFT) 50 Mg Tablet, 50 MG PO DAILY, #30 TAB 11/02/14 Warfarin Sodium (COUMADIN) 10 Mg Tablet, 10 MG PO DAILY 01/30/12 Phenobarbital (PHENOBARBITAL) 60 Mg Tablet, 90 MG PO PM 01/30/12 Phenobarbital (PHENOBARBITAL) 30 Mg Tablet, 30 MG PO AM 01/30/12 Phenytoin Sodium Extended (DILANTIN) 100 Mg Capsule, 300 MG PO HS 01/30/12 Phenytoin Sodium Extended (DILANTIN) 100 Mg Capsule, 100 MG PO DAILY 01/30/12 Medications in the ED Diatrizoate Meglum/ Diatrizoate Sod 30 ml STK-MED ONCE PO ; Start 10/27/19 at 01:57; Stop 10/27/19 at 01:50; Status DC Morphine Sulfate 4 mg NOW STAT IV Last administered on 10/27/19at 02:26; Admin Dose 4 MG; Start 10/27/19 at 01:53; Stop 10/27/19 at 01:59; Status DC Ondansetron HCl 4 mg NOW STAT IV Last administered on 10/27/19at 02:26; Admin Dose 4 MG; Start 10/27/19 at 01:53; Stop 10/27/19 at 01:59; Status DC Sodium Chloride 1,000 ml @ 100 mls/hr Q10H IV ; Start 10/27/19 at 02:00; Stop 10/27/19 at 02:30; Status DC Sodium Chloride 1,000 ml @ 999 mls/hr Q1H1M ONCE IV ; Start 10/27/19 at 02:30; Stop 10/27/19 at 03:30 ERICKA UNGER MD Oct 27, 2019 02:35
[2019-10-27 02:43] LABS: INR 0.94
[2019-10-27 02:44] LABS: PARTIAL THROMBOPLASTIN TIME 29.7 seconds (23.8-35.5)
[2019-10-27 02:51] LABS: BILIRUBIN,URINE NEGATIVE (NEGATIVE); CLARITY,URINE CLEAR (CLEAR); COLOR,URINE YELLOW (YELLOW); KETONES,URINE NEGATIVE (NEGATIVE); LEUKOCYTE ESTERASE ,URINE NEGATIVE (NEGATIVE); NITRITE,URINE NEGATIVE (NEGATIVE); PROTEIN,URINE DIPSTICK TRACE (NEGATIVE); URINE UROBILINOGEN 0.2 mg/dL (0.2 - 1)
[2019-10-27 02:55] LABS: ALANINE AMINOTRANSFERASE 22 IU/L (0-55); ALBUMIN 4.2 g/dL (3.5-5.0); ALBUMIN/GLOBULIN RATIO 1.1 (0.8-2.0); ALKALINE PHOSPHATASE 78 IU/L (40-150); ANION GAP 17.5 mmol/L (8-16); BLOOD UREA NITROGEN 16 mg/dL (7-26); BUN/CREATININE RATIO 21 (6-25); CALCIUM 9.1 mg/dL (8.4-10.2); CARBON DIOXIDE 19 mmol/L (22-29); CHLORIDE 104 mmol/L (98-107); CREATININE, SERUM 0.77 mg/dL (0.57-1.11); EST GLOMERULAR FILTRATION RATE > 60 ML/MIN (60-); GLUCOSE 134 mg/dL (74-118); POTASSIUM 3.5 mmol/L (3.5-5.1); SODIUM 137 mmol/L (136-145)
[2019-10-27 02:58] LABS: BACTERIA,URINE MODERATE /HPF; CALCIUM OXALATE CRYSTALS,UR MANY (FEW); EPITHELIAL CELLS,URINE FEW /LPF
[2019-10-27] MEDS ORDERED: SODIUM CHLORIDE 0.9% 50ML 50 ML ONE (03:12)
[2019-10-27] MEDS ORDERED: IOPAMIDOL 370 MG/ML 200 ML INFUS..BTL INJ ONE (03:13)
[2019-10-27] MEDS ORDERED: ACETAMINOPHEN 325 MG TAB PO ONE (03:45)
[2019-10-27] MEDS ORDERED: PIPER-TAZ 3.375 GM 50 ML IV ONE (03:45)
[2019-10-27] MEDS ORDERED: ACETAMINOPHEN 325 MG TAB ONE (03:51)
[2019-10-27] MEDS ORDERED: ONDANSETRON HCL INJ 2MG/ML 2ML 2 MG/ML VIAL ONE (04:01)
--- NOTE | 2019-10-27 04:35 | Diagnostic Imaging Report ---
EXAM: CT Abdomen and Pelvis WITH contrast INDICATION: ^ABD PAIN, RECTAL BLEEDING, H/O COLON CANCER WITH RESECTION ^Y COMPARISON: CT abdomen/pelvis dated 08/18/2019 TECHNIQUE: Abdomen and pelvis were scanned utilizing a multidetector helical scanner from the lung base to the pubic symphysis after administration of IV contrast. Coronal and sagittal reformations were obtained. Dose modulation, iterative reconstruction, and/or weight based adjustment of the mA/kV was utilized to reduce the radiation dose to as low as reasonably achievable. Routine protocol was performed. Scan was performed when during portal venous phase. IV CONTRAST: 100 mL of Isovue-370 ORAL CONTRAST: Gastroview COMPLICATIONS: None RADIATION DOSE: Total DLP: 665.34 mGy*cm Estimated effective dose: (DLP x 0.015 x size factor) mSv CTDIvol has been reviewed. It is below the limits set by the Radiation Protocol Committee (RPC). FINDINGS: LINES and TUBES: None. LOWER THORAX: More conspicuous 4 mm right lower lobe groundglass nodule (series 2, image 6). Paramediastinal right lower lobe focal area of groundglass haziness. HEPATOBILIARY: Hepatic steatosis. No focal hepatic lesions. No biliary ductal dilation. GALLBLADDER: Surgically absent. SPLEEN: No splenomegaly. PANCREAS: No focal masses or ductal dilatation. ADRENALS: No adrenal nodules KIDNEYS/URETERS: Kidneys enhance symmetrically. No hydronephrosis. No cystic or solid mass lesions. No stones. GI TRACT: No abnormal distention, wall thickening, or evidence of bowel obstruction. Intact sigmoid anastomosis. Appendix is not visualized. Scattered colonic diverticula without evidence of diverticulitis. PELVIC ORGANS/BLADDER: Unremarkable. Pelvic surgical clips are again seen. LYMPH NODES: No lymphadenopathy. VESSELS: Unremarkable. PERITONEUM / RETROPERITONEUM: No free air or fluid. BONES: Unremarkable. SOFT TISSUES: Small fat-containing umbilical hernia. Bilateral gluteal injection granulomas. IMPRESSION: 1. More conspicuous 4 mm right lower lobe groundglass lung nodule. Attention on follow-up examination in 6 months. 2. Paramediastinal right lower lobe focal area of groundglass haziness, new from prior exam, could represent subsegmental atelectasis versus developing pneumonia in the appropriate clinical context. 3. No acute inflammatory process in the abdomen/pelvis. 4. Hepatic steatosis. Signed by: Dr. Satya Sesay MD on 10/27/2019 4:31 AM
[2019-10-27] MEDS ORDERED: IBUPROFEN 600 MG TAB PO STA (05:29)
[2019-10-27] MEDS ORDERED: IBUPROFEN 600 MG TAB ONE (05:37)
[2019-10-27] MEDS ORDERED: ASPIRIN 81 MG CHEW TAB PO ONE (06:15)
[2019-10-27] MEDS ORDERED: DEXTROSE 50% SYRINGE 50 ML IV PRN (06:15)
[2019-10-27] MEDS ORDERED: ACETAMINOPHEN 325 MG TAB PO PRN (06:15)
--- OUTSIDE RECORDS SUMMARY | 2019-10-27 06:37 | XMS REPORT | Clinical Summary ---
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
--- OUTSIDE RECORDS SUMMARY | 2019-10-27 06:38 | XMS REPORT | Continuity of Care Document ---
Author Author [employer], JESUS Wilson [employer] Address Unknown Phone Unavailable Care Team Providers Care [employer] Operator Name Role Phone [facility] Information Exchange Unavailable Un available Problems Problem Status Onset Date Classification Date Reported Comments Source CHEST PAIN IN ADULT,ARM PAIN,RT,SOB-SHOR Active 07/08/2018 [facility] VOMITING / ARM PAIN Active 07/08/2018 [facility] NOSEBLEED/COUGHING UP BLOOD Ac tive 01/10/2018 [facility] COUMADIN TOXICITY Active 01/10/2018 [facility] Urinary tract infection, site not specified 05/29/2016 06/01/2016 [facility] ABD PAIN Active 05/28/2016 [facility] SENT BY Active 07/14/2011 [facility] Anxiety Active Problem 07/17/2011 [facility] Back pain Active Problem 07/17/2011 [facility] Chest pain Active Problem 07/17/2011 [facility] Deep vein thrombosis Active Problem 07/17/2011 [facility] Depression Active Problem 07/17/2011 [facility] Dysmenorrhea Active Problem 07/17/2011 [facility] Fracture of knee-cap Active Problem 07/17/2011 [facility] Hay fever Active Problem 07/17/2011 [facility] Incontinence Active Problem 07/17/2011 [facility] Migraine Active Problem 07/17/2011 [facility] Nausea and vomiting Active Problem 07/17/2011 [facility] Neck pain Active Problem 07/17/2011 [facility] Osteoarthritis Active Problem 07/17/2011 [facility] Panic disorder Active Problem 07/17/2011 [facility] Pulmonary embolism Active Problem 07/17/2011 [facility] Seizure Active Problem 07/17/2011 [facility] Shoulder pain Active Problem 07/17/2011 [facility] Stroke Active Problem 07/17/2011 [facility] Suicide attempt Active Problem 07/17/2011 [facility] UTI - Urinary tract infection Active Problem [facility] Anxiety (finding) Active Problem 07/11/2018 [facility] Backache (finding) Active Problem 07/11/2018 [facility] Chest pain (finding) Active Problem 07/11/2018 [facility] Deep venous thrombosis (disorder) Active Problem [facility] Depressive disorder (disorder) Active Problem [facility] Diabetes mellitus (disorder) A ctive Problem [facility] Dysmenorrhea (disorder) Active Problem 07/11/2018 [facility] Epilepsy (disorder) Active Problem 07/11/2018 [facility] Fracture of patella (disorder) Active Problem [facility] Allergic rhinitis due to pollen (disorder) Active Problem 07/11/2018 [facility] Hypertensive disorder, systemic arterial (disorder) Active Problem 07/11/2018 [facility] Incontinence (finding) Active Problem 07/11/2018 [facility] Malignant tumor of colon (disorder) Active Problem [facility] Migraine (disorder) Active Problem 07/11/2018 [facility] Nausea and vomiting (disorder) Active Problem [facility] Neck pain (finding) Active Problem 07/11/2018 [facility] Osteoarthritis (disorder) Acti ve Problem [facility] Panic disorder (disorder) Acti ve Problem [facility] Pulmonary embolism (disorder) Active Problem [facility] Seizure (finding) Active Problem 07/11/2018 [facility] Shoulder pain (finding) Active Problem 07/11/2018 [facility] Sleep apnea (finding) Active Problem 07/11/2018 [facility] Cerebrovascular accident (disorder) Active Problem [facility] Suicide attempt (disorder) Act capo Problem [facility] Urinary tract infectious disease (disorder) Active Problem 07/11/2018 [facility] Coronary arteriosclerosis (disorder) Active Problem [facility] CHEST PAIN, UNSPECIFIED Active [facility] PAIN IN RIGHT ARM Active [facility] SHORTNESS OF BREATH Active [facility] POISONING BY ANTICOAGULANTS, ACCIDENTAL, Active [facility] Medications Medication Details Route Status Patient Instructions Ordering Provider Order Date Source Dilantin Notes: (Same as: Dila ntin) Do not open, crush, or chew. Inactive 07/10/2018 [facility] Phenobarbital Notes: (Same as: Barbita, Luminal, Solfoton) Inactive 07/10/2018 [facility] Lipitor Notes: (Same As: Lipit or) Inactive 07/10/2018 [facility] Acetaminophen 300 MG / Codeine Phosphate 30 MG Oral Tablet [Tylenol with Codeine #3] 1 tab, PO, Q6H, PRN Pain, X 7 day, # 28 tab, 0 Refill(s) Active 07/09/2018 [facility] Acetaminophen 300 MG / Codeine Phosphate 30 MG Oral Tablet [Tylenol with Codeine #3] 1 tab, PO, Q6H, PRN Pain, X 7 day, # 28 tab, 0 Refill(s), given to patient Inactive 07/09/2018 [facility] Warfarin Notes: Nurse to benny e documentation of patient education per anticoagulation policy. Avoid large intake of vitamin-K containing foods diet. WASTE: F/P - P Waste Black; E - P Waste Black (Same As: Coumadin) Inactive 07/09/2018 [facility] atorvastatin 10 mg oral tablet 20 mg = 2 tab, PO, Bedtime, 0 Refill(s) Active 07/09/2018 [facility] Lyrica Notes: (Same as: Lyrica) Inactive 07/09/2018 [facility] Dilantin Notes: (Same as: Dila ntin) Do not open, crush, or chew. Inactive 07/09/2018 [facility] Omeprazole 20 mg, Route: PO, D aily, Dosing Weight 72.727, kg, Start date: 07/09/18 9:00:00 CDT, Duration: 30 day, Stop date: 08/07/18 9:00:00 CDT Inactive 07/09/2018 [facility] Citalopram 20 mg, 2 tab, Route : PO, Drug form: TAB, Daily, Dosing Weight 72.727, kg, Start date: 07/09/18 9:00:00 CDT, Duration: 30 day, Stop date: 08/07/18 9:00:00 CDT Inactive 07/09/2018 [facility] Saline Flush 0.9% Notes: (Same as: BD Posiflush) Inactive 07/09/2018 [facility] Protonix Notes: Tablet should not be chewed or crushed. (Same as: Protonix) Inactive 07/09/2018 [facility] Phenobarbital Notes: (Same as: Barbita, Luminal, Solfoton) Inactive 07/09/2018 [facility] Morphine Notes: (Same as:MORPh ine Sulfate) Inactive 07/09/2018 [facility] Ketorolac 4 days. Inactive 07/09/2018 [facility] Saline Flush 0.9% Notes: (Same as: BD Posiflush) Inactive 07/09/2018 [facility] Nitroglycerin Notes: (Same as: Nitroquick, Nitrostat) "Do Not Crush" Sublingual tablet Inactive 07/09/2018 [facility] pneumococcal capsular polysaccharide typ e 1 vaccine / pneumococcal capsular polysaccharide type 10A vaccine / pneumococcal capsular polysaccharide type 11A vaccine / pneumococcal capsular polysaccharide type 12F vaccine / pneumococcal capsular polysacchar Notes: (Same as: Pneumovax 23) Refrigerate No Longer Active 07/09/2018 [facility] Ketorolac 15 mg, Route: IVP, D rug form: INJ, ONCE, Dosing Weight 72.727, kg, Priority: STAT, Start date: 07/08/18 21:35:00 CDT, Stop date: 07/08/18 21:35:00 CDT Inactive 07/09/2018 [facility] tramadol hydrochloride 50 MG Oral Tablet 50 mg = 1 tab, PO, Q12H, PRN Pain, X 10 day, # 20 tab, 0 Refill(s) Active 05/29/2016 [facility] tramadol hydrochloride 50 MG Oral Tablet 50 mg, Route: PO, Drug form: TAB, ONCE, Dosing Weight 63.636, kg, Priority: STAT, Start date: 05/29/16 1:57:00 CDT, Stop date: 05/29/16 1:57:00 CDT Inactive 05/29/2016 [facility] ciprofloxacin 500 mg oral tablet 500 mg = 1 tab, PO, Q12H, X 10 day, # 20 tab, 0 Refill(s) Active 05/29/2016 [facility] Diphenhydramine 25 mg, Route: IVP, ONCE, Dosing Weight 63.636, kg, Priority: STAT, Start date: 05/28/16 23:59:00 CDT, Stop date: 05/28/16 23:59:00 CDT No Longe r Active 05/29/2016 [facility] Prednisone 60 mg, Route: PO, D rug form: TAB, ONCE, Dosing Weight 63.636, kg, Priority: STAT, Start date: 05/28/16 23:59:00 CDT, Stop date: 05/28/16 23:59:00 CDT No Longer Active 05/29/2016 [facility] Ciprofloxacin 400 mg, Route: I VPB, ONCE, Dosing Weight 63.636, kg, Priority: STAT, Start date: 05/28/16 23:59:00 CDT, Stop date: 05/28/16 23:59:00 CDT No Longe r Active 05/29/2016 [facility] Ceftriaxone 1 gm, Route: IVPB, Drug form: PDR/INJ, ONCE, Dosing Weight 63.636, kg, Priority: STAT, Start date: 05/28/16 23:04:00 CDT, Stop date: 05/28/16 23:04:00 CDT Inactive 05/29/2016 [facility] Ondansetron 4 mg, Route: IVP, Drug form: INJ, ONCE, Dosing Weight 63.636, kg, Priority: STAT, Start date: 05/28/16 22:22:00 CDT, Stop date: 05/28/16 22:22:00 CDT Inactive 05/29/2016 [facility] Morphine 4 mg, Route: IVP, ONC E, Dosing Weight 63.636, kg, Priority: STAT, Start date: 05/28/16 22:22:00 CDT, Stop date: 05/28/16 22:22:00 CDT Inactive 05/29/2016 [facility] Ondansetron 4 mg, Route: IVP, Drug form: INJ, ONCE, Dosing Weight 63.636, kg, Priority: STAT, Start date: 05/28/16 20:49:00 CDT, Stop date: 05/28/16 20:49:00 CDT Inactive 05/29/2016 [facility] Morphine 4 mg, Route: IVP, ONC E, Dosing Weight 63.636, kg, Priority: STAT, Start date: 05/28/16 20:49:00 CDT, Stop date: 05/28/16 20:49:00 CDT Inactive 05/29/2016 [facility] Saline Flush 0.9% Notes: (Same as: BD Posiflush) No Longer Active 05/28/2016 [facility] Lovenox 40 mg/0.4 mL subcutaneous solution 40 mg, SUB-Q, Daily, 5 mL, Substitution Allowed SUB-Q Active [place]a iner 07/15/2011 [facility] nt Lovenox 80 mg, Route: SUB-Q, O NCE, Start date: 07/15/11 0:07:00, Stop date: 07/15/11 0:07:00 SUB-Q No Longer Active [place] 07/15/2011 [facility] hydromorphone 0.5 mg, 0.25 mL, Route: IVP, Drug form: INJ, ONCE, Priority: STAT, Start date: 07/15/11 0:02:00, Stop date: 07/15/11 0:02:00 IVP No Longer Active [place] 07/15/2011 [facility] Coumadin 10 mg oral tablet 10 mg, 1 tab, PO, Daily, 30 tab, Substitution Allowed, TAB PO Active [facility] iner 07/15/2011 [facility] nt Lovenox 80 mg/0.8 mL subcutaneous solution 80 mg, 0.8 ml, SUB-Q, Daily, 4 mL, Substitution Allowed, SOLN SUB-Q Active [place] 07/15/2011 [facility] Lovenox 80 mg, 0.8 mL, Route: IV, Drug form: INJ, ONCE, Start date: 07/14/11 23:02:00, Stop date: 07/14/11 23:02:00 IV No Longer Active [place] 07/15/2011 [facility] ondansetron 4 mg, 2 mL, Route: IVP, Drug form: INJ, ONCE, Priority: STAT, Start date: 07/14/11 20:30:00, Stop date: 07/14/11 20:30:00 IVP No Longer Active [place] 07/15/2011 [facility] [place] 5/325 oral tablet 2 tab, Route: PO, Drug Form: TAB, ONCE, Start date: 07/14/11 19:23:00, Stop date: 07/14/11 19:23:00 PO No Longer Active [place] [facility] Benadryl Substitution Allowed Active 07/14/2011 [facility] nter Unknown Home Medication Substi tution Allowed Active 07/14/2011 [facility] Dilantin Substitution Allowed Active 07/14/2011 [facility] nter Zanaflex Substitution Allowed Active 07/14/2011 [facility] nter Unknown Home Medication Substi tution Allowed Active 07/14/2011 [facility] Lyrica Substitution Allowed Active 07/14/2011 [facility] nt Unknown Home Medication Substi tution Allowed Active 07/14/2011 [facility] ondansetron 4 mg, Route: IVP, Drug form: INJ, ONCE, Priority: STAT, Start date: 07/14/11 18:16:00, Stop date: 07/14/11 18:16:00 IVP No Longer Active [place] 06/20 [facility] aspirin 325 mg tablet 325 mg, 1 tab, Route: PO, Drug form: TAB, ONCE, Priority: STAT, Start date: 07/14/11 17:49:00, Stop date: 07/14/11 17:49:00 PO No Longer Active [place] 07/14/2011 [facility] nter hydromorphone 1 mg, 0.5 mL, Ro yuly: IVP, Drug form: INJ, ONCE, Priority: STAT, Start date: 07/14/11 17:28:00, Stop date: 07/14/11 17:28:00 IVP No Longer Active [place] 07/14/2011 [facility] influenza virus vaccine, inactivated 0.5 mL, Route: IM, Drug Form: SUSP, Start date: 05/31/11 9:00:00, Stop date: 05/31/11 9:00:00 IM No Longer Active [place] 05/20 [facility] Allergies, Adverse Reactions, Alerts Substance Category Reaction Severity Reaction type Status Date Reported Comments Source prochlorperazine Assertion Drug allergy Active [facility] Immunizations Immunization Date Given Site Status Last Updated Comments Source influenza virus vaccine, inactivated 11/29/2011 Right deltoid completed [facility] influenza virus vaccine, inactivated 05/31/2011 Not Given B [facility] Results Order Name Results Value Reference Range Date Interpretation Comments Source URINE AND STOOL UA Urobilinogen <=1.0 mg/dL 0.1 - 1.0 07/09/2018 [facility] URINE AND STOOL UA Spec Grav 1.026 <=1.030 07/09/2018 [facility] URINE AND STOOL UA Glucose Negative mg/dL Negative mg/dL 07/09/[address] [facility] [address] URINE AND STOOL UA Protein Negative mg/dL Negative mg/dL 07/09/[address] [facility] [address] URINE AND STOOL UA Blood Moderate *ABN* (07/09/18 5:29 PM) Negative 07/09/2018 [facility] URINE AND STOOL UA pH 6.0 5.0 - 8.0 07/09/2018 [facility] URINE AND STOOL UA Nitrite Negative (07/09/18 5:29 PM) Negative 07/09/2018 [facility] URINE AND STOOL UA Ketones Negative mg/dL Negative mg/dL [facility]/09[facility]INE AND STOOL UA Bili Negative [...] Bacteria Moderate /HPF None Seen /HPF 07/09/[address] [facility] [address] URINE AND STOOL UA Mucus Moderate [...] Negative 07/09/2018 [facility] URINE AND STOOL UA [place] Yeast Many /HPF None Seen /HPF 07/09/2018 [facility] URINE AND STOOL UA Ketones Negative mg/dL Negative mg/dL 07/09/[address] [facility] URINE AND STOOL UA Bili Negative *NA* (07/09/18 4:13 PM) Negative 07/09/2018 [facility] URINE AND STOOL UA Glucose 50 mg/dL Negative mg/dL 07/09/2018 [facility] URINE AND STOOL UA Protein 100 mg/dL Negative mg/dL 07/09/2018 [facility] URINE AND STOOL UA Spec Grav 1.043 <=1.030 07/09/2018 [facility] URINE AND STOOL UA Turbidity Marked *ABN* (07/09/18 4:13 PM) Clear 07/09/2018 [facility] URINE AND STOOL UA pH 6.0 5.0 - 8.0 07/09/2018 [facility] CARDIAC ENZYMES Troponin-I <0.02 0.00 - 0.40 07/09/2018 [facility] CHEM PANEL Phosphorus 3.5 2.5 - 4.5 07/09/2018 [facility] CHEM PANEL Magnesium Lvl 2.5 1.8 - 2.4 07/09/2018 [facility] CHEM PANEL Bili Indirect 0.3 0.0 - 1.0 07/09/2018 [facility] CHEM PANEL Bili Direct 0.1 0.0 - 0.3 07/09/2018 [facility] CHEM PANEL Alk Phos 83 39 - 136 07/09/2018 [facility] CHEM PANEL Bili Total 0.4 0.2 - 1.3 07/09/2018 [facility] CHEM PANEL AST 21 0 - 37 07/09/2018 [facility] CHEM PANEL Albumin Lvl 3.0 3.5 - 5.0 07/09/2018 [facility] CHEM PANEL Globulin 4.3 2.7 - 4.2 07/09/2018 [facility] CHEM PANEL A/G Ratio 0.7 0.7 - 1.6 07/09/2018 [facility] CHEM PANEL ALT 24 0 - 65 07/09/2018 [facility] CHEM PANEL Total Protein 7.3 6.4 - 8.4 07/09/2018 [facility] ELECTROLYTES AGAP 12.5 10.0 - 20.0 07/09/2018 [facility] ELECTROLYTES eGFR 88 07/09/2018 Result Comment: [...] should be multiplied by the estimated BMI. [facility] ELECTROLYTES CO2 24 24 - 32 07/09/2018 [facility] ELECTROLYTES Calcium Lvl 8.4 8.5 - 10.5 07/09/2018 [facility] ELECTROLYTES Potassium Lvl 3.5 3.5 - 5.1 07/09/2018 [facility] ELECTROLYTES Chloride Lvl 105 95 - 109 07/09/2018 [facility] ELECTROLYTES Creatinine Lvl 0.7 4 0.50 - 1.40 07/09/2018 [facility] ELECTROLYTES Sodium Lvl 138 135 - 145 07/09/2018 [facility] ELECTROLYTES Glucose Lvl 121 70 - 99 07/09/2018 [facility] ELECTROLYTES BUN 17 7 - 22 07/09/2018 [facility] HEMATOLOGY Basophils # 0.1 0.0 - 0.2 07/09/2018 [facility] HEMATOLOGY Eosinophils # 0.4 0.0 - 0.5 07/09/2018 [facility] HEMATOLOGY Basophils 1.0 0.0 - 1.0 07/09/2018 [facility] HEMATOLOGY Neutrophils # 3.7 1.5 - 8.1 07/09/2018 [facility] HEMATOLOGY Lymphocytes # 2.5 1.0 - 5.5 07/09/2018 [facility] HEMATOLOGY Monocytes # 0.5 0.0 - 0.8 07/09/2018 [facility] HEMATOLOGY Lymphocytes 35.3 20.0 - 40.0 07/09/2018 [facility] HEMATOLOGY Monocytes 6.8 2.0 - 12.0 07/09/2018 [facility] HEMATOLOGY Eosinophils 6.1 0.0 - 4.0 07/09/2018 [facility] HEMATOLOGY Segs 50.8 45.0 - 75.0 07/09/2018 [facility] MPV 8.2 7.4 - 10.4 07/09/2018 [facility] Platelet 241 133 - 450 07/09/2018 [facility] HEMATOLOGY MCV 95.2 80.0 - 98.0 07/09/2018 [facility] HEMATOLOGY MCH 32.3 27.0 - 31.0 07/09/2018 [facility] HEMATOLOGY Hct 37.1 36.0 - 48.0 07/09/2018 [facility] HEMATOLOGY Hgb 12.6 12.0 - 16.0 07/09/2018 [facility] MCHC 33.9 32.0 - 36.0 07/09/2018 [facility] RDW 13.8 11.5 - 14.5 07/09/2018 [facility] HEMATOLOGY WBC 7.2 3.7 - 10.4 07/09/2018 [facility] HEMATOLOGY RBC 3.90 4.20 - 5.40 07/09/2018 [facility] LIPIDS VLDL 28 07/09/2018 [facility] LIPIDS LDL (Calculated) 102 <=99 mg/dL 07/09/2018 [facility] LIPIDS Trig 141 <=149 mg/dL 07/09/2018 [facility] LIPIDS HDL 50 >=61 mg/dL 07/09/2018 [facility] LIPIDS Chol 180 <=199 mg/dL 07/09/2018 [facility] LIPIDS CHD Risk 3.60 3.90 - 5.80 07/09/2018 [facility] CARDIAC ENZYMES Troponin-I <0.02 0.00 - 0.40 07/09/2018 [facility] CARDIAC ENZYMES Troponin-I <0.02 0.00 - 0.40 07/08/2018 [facility] CARDIAC ENZYMES CK MB <1.0 0.5 - 3.6 07/08/2018 [facility] CARDIAC ENZYMES Total CK 96 12 - 191 07/08/2018 [facility] CARDIAC ENZYMES BNP 9 <=100 pg/mL 07/08/2018 [facility] CARDIAC ENZYMES CK MB Index <1.0 0.0 - 2.5 07/08/2018 [facility] CHEM PANEL eGFR 66 07/08/2018 Result [...] B/C Ratio 15 6 - 25 07/08/2018 [facility] CHEM PANEL Alk Phos 91 39 - 136 07/08/2018 [facility] CHEM PANEL Bili Total 0.2 0.2 - 1.3 07/08/2018 [facility] CHEM PANEL AGAP 9.4 10.0 - 20.0 07/08/2018 [facility] CHEM PANEL A/G Ratio 0.7 0.7 - 1.6 07/08/2018 [facility] CHEM PANEL Total Protein 8.3 6.4 - 8.4 07/08/2018 [facility] CHEM PANEL Calcium Lvl 8.7 8.5 - 10.5 07/08/2018 [facility] CHEM PANEL AST 19 0 - 37 07/08/2018 [facility] CHEM PANEL Albumin Lvl 3.4 3.5 - 5.0 07/08/2018 [facility] CHEM PANEL ALT 26 0 - 65 07/08/2018 [facility] CHEM PANEL Sodium Lvl 139 135 - 145 07/08/2018 [facility] CHEM PANEL Creatinine Lvl 0.93 0.50 - 1.40 07/08/2018 [facility] HEMATOLOGY PTT 30.1 22.9 - 35.8 07/08/2018 [facility] HEMATOLOGY INR 1.39 0.85 - 1.17 07/08/2018 [facility] HEMATOLOGY PT 16.8 12.0 - 14.7 07/08/2018 [facility] HEMATOLOGY MPV 8.3 7.4 - 10.4 07/08/2018 [facility] HEMATOLOGY Platelet 271 133 - 450 07/08/2018 [facility] HEMATOLOGY RDW 13.8 11.5 - 14.5 07/08/2018 [facility] HEMATOLOGY MCV 94.2 80.0 - 98.0 07/08/2018 [facility] HEMATOLOGY Hgb 13.4 12.0 - 16.0 07/08/2018 [facility] Hct 39.1 36.0 - 48.0 07/08/2018 [facility] MCHC 34.2 32.0 - 36.0 07/08/2018 [facility] MCH 32.2 27.0 - 31.0 07/08/2018 [facility] RBC 4.15 4.20 - 5.40 07/08/2018 [facility] WBC 10.0 3.7 - 10.4 07/08/2018 [facility] HEMATOLOGY Monocytes # 0.5 0.0 - 0.8 07/08/2018 [facility] HEMATOLOGY Neutrophils # 6.2 1.5 - 8.1 07/08/2018 [facility] HEMATOLOGY Eosinophils # 0.4 0.0 - 0.5 07/08/2018 [facility] HEMATOLOGY Lymphocytes # 2.8 1.0 - 5.5 07/08/2018 [facility] Basophils # 0.1 0.0 - 0.2 07/08/2018 [facility] Lymphocytes 28.2 20.0 - 40.0 07/08/2018 [facility] Eosinophils 4.2 0.0 - 4.0 07/08/2018 [facility] Basophils 0.7 0.0 - 1.0 07/08/2018 [facility] Segs 61.6 45.0 - 75.0 07/08/2018 [facility] Monocytes 5.3 2.0 - 12.0 07/08/2018 [facility] URINE AND STOOL UA Urobilinogen <=1.0 mg/dL 0.1 - 1.0 05/29/2016 [facility] URINE AND STOOL UA Bacteria Many /HPF None Seen /HPF 05/29/2016 [facility] URINE AND STOOL UA Mucus Few /LPF None Seen /LPF 05/29/2016 [facility] URINE AND STOOL UA Bili Negative *NA* (05/28/16 9:30 PM) Negative 05/29/2016 [facility] URINE AND STOOL UA Blood Large *ABN* (05/28/16 9:30 PM) Negative 05/29/2016 [facility] URINE AND STOOL UA Ketones Negative mg/dL Negative mg/dL 05/29/2016 [facility] URINE AND STOOL UA Turbidity Marked *ABN* (05/28/16 9:30 PM) Clear 05/29/2016 [facility] URINE AND STOOL UA Color Yellow *NA* (05/28/16 9:30 PM) Yellow 05/29/2016 [facility] URINE AND STOOL UA Spec Grav 1.018 <=1.030 05/29/2016 [facility] URINE AND STOOL UA Glucose Negative mg/dL Negative mg/dL 05/29/2016 [facility] URINE AND STOOL UA pH 6.0 5.0 - 8.0 05/29/2016 [facility] URINE AND STOOL UA Protein 30 mg/dL Negative mg/dL 05/29/2016 [facility] URINE AND STOOL UA WBC 10 0 - 5 05/29/2016 [facility] URINE AND STOOL UA RBC >182 0 - 2 05/29/2016 [facility] URINE AND STOOL UA Nitrite Positive *ABN* (05/28/16 9:30 PM) Negative 05/29/2016 [facility] URINE AND STOOL UA Leuk Est Large *ABN* (05/28/16 9:30 PM) Negative 05/29/2016 [facility] URINE AND STOOL UA Sq Epi Many /LPF Few /LPF 05/29/2016 [facility] CARDIAC ENZYMES Troponin-I <0.02 0.00 - 0.40 05/28/2016 [facility] CARDIAC ENZYMES Total CK 141 12 - 191 05/28/2016 [facility] CARDIAC ENZYMES CK MB 1.8 0.5 - 3.6 05/28/2016 [facility] CARDIAC ENZYMES CK MB Index 1.3 0.0 - 2.5 05/28/2016 [facility] CHEM PANEL eGFR 70 05/28/2016 Result [...] should be multiplied by the estimated BMI. [facility] CHEM PANEL AST 15 0 - [...] Alk Phos 90 39 - 136 05/28/2016 [facility] CHEM PANEL Glucose Lvl 152 70 - 99 05/28/2016 [facility] CHEM PANEL Potassium Lvl 3.3 3.5 - 5.1 05/28/2016 [facility] CHEM PANEL Chloride Lvl 104 95 - 109 05/28/2016 [facility] CHEM PANEL Sodium Lvl 141 135 - 145 05/28/2016 [facility] CHEM PANEL CO2 23 24 - 32 05/28/2016 [facility] CHEM PANEL Creatinine Lvl 0.90 0.50 - 1.40 05/28/2016 [facility] CHEM PANEL BUN 22 7 - 22 05/28/2016 [facility] CHEM PANEL Lipase Lvl 83 73 - 393 05/28/2016 [facility] HEMATOLOGY RDW 13.3 11.5 - 14.5 05/28/2016 [facility] HEMATOLOGY Platelet 258 133 - 450 05/28/2016 [facility] HEMATOLOGY MPV 8.2 7.4 - 10.4 05/28/2016 [facility] HEMATOLOGY MCHC 34.2 32.0 - 36.0 05/28/2016 [facility] HEMATOLOGY MCH 31.6 27.0 - 31.0 05/28/2016 [facility] HEMATOLOGY Hgb 13.3 12.0 - 16.0 05/28/2016 [facility] HEMATOLOGY MCV 92.4 80.0 - 98.0 05/28/2016 [facility] HEMATOLOGY Hct 38.9 36.0 - 48.0 05/28/2016 [facility] HEMATOLOGY RBC 4.21 4.20 - 5.40 [...] HEMATOLOGY Monocytes 5.6 2.0 - 12.0 05/28/2016 [facility] CHEMISTRY Lipase Lvl 107 73 - 393 07/14/2011 [facility] CHEMISTRY Total CK 39 12 - 191 07/14/2011 Normal [facility] CHEMISTRY Troponin-I <0.02 0.00 - 0.40 07/14/2011 Normal [facility] CHEMISTRY Myoglobin 10 25 - 72 07/14/2011 LOW [facility] CHEMISTRY Chloride Lvl 102 95 - 109 07/14/2011 Normal [facility] CHEMISTRY BUN 18 7 - 22 07/14/2011 Normal [facility] CHEMISTRY Glucose Lvl 95 70 - 99 07/14/2011 [facility] <sup>1</sup>Interpretive Data: Adult ref erence range values reflect the clinical guidelines of the [employer]. [facility] CHEMISTRY CO2 25 24 - 32 07/14/2011 Normal [facility] CHEMISTRY Calcium Lvl 9.0 8.5 - 10.5 07/14/2011 Normal [facility] CHEMISTRY Creatinine Lvl 0.7 0.5 - 1.4 07/14/2011 Normal [facility] CHEMISTRY Sodium Lvl 139 135 - 145 07/14/2011 Normal [facility] CHEMISTRY Potassium Lvl 4.2 3.5 - 5.1 07/14/2011 Normal [facility] CHEMISTRY AGAP 16.2 10.0 - 20.0 07/14/2011 Normal [facility] CHEMISTRY Etoh (%) <0.003 07/14/2011 NA <sup>2</sup>Interpretive Data: Negative Range: <0.003% Toxic Range: >0.25% [facility] CHEMISTRY Ethanol Lvl <3 07/14/2011 NA <sup>3</sup>Interpretive Data: Negative Range: <3 mg/dL Toxic Range: >250 mg/dL [facility] HEMATOLOGY Platelet 286 133 - 450 07/14/2011 Normal [facility] HEMATOLOGY RDW 13.1 11.5 - 14.5 07/14/2011 Normal [facility] HEMATOLOGY MCHC 34.3 32.0 - 36.0 07/14/2011 Normal [facility] HEMATOLOGY MPV 8.0 7.4 - 10.4 07/14/2011 Normal [facility] HEMATOLOGY Hgb 13.6 12.0 - 16.0 07/14/2011 Normal [facility] HEMATOLOGY MCH 31.7 27.0 - 31.0 07/14/2011 [place] [facility] HEMATOLOGY MCV 92.5 81.0 - 99.0 07/14/2011 Normal [facility] HEMATOLOGY Hct 39.7 36.0 - 48.0 07/14/2011 Normal [facility] HEMATOLOGY RBC 4.29 4.20 - 5.40 07/14/2011 Normal [facility] HEMATOLOGY WBC 14.1 3.7 - 10.4 07/14/2011 [facility] HEMATOLOGY INR 0.93 0.85 - 1.17 07/14/2011 Normal <sup>4</sup>Interpretive Data: RECOMMEND ED RANGES FOR PROTIME INR: 2.0-3.0 for most medical and surgical thromboembolic states. 2.5-3.5 for artificial heart valves and recurrent embolism. INR SHOULD BE USED ONLY FOR PATIENTS ON STABLE ANTICOAGULANT THERAPY. [facility] HEMATOLOGY PTT 22.9 22.9 - 35.8 07/14/2011 Normal <sup>5</sup>Interpretive Data: Heparin T herapeutic Range: 57 - 92 Seconds [facility] HEMATOLOGY PT 12.5 12.0 - 14.7 07/14/2011 Normal [facility] HEMATOLOGY Plt Morph Leanne l (07/14/2011 17:29:00) 07/14/2011 Normal [facility] HEMATOLOGY RBC Morph Leanne l (07/14/2011 17:29:00) 07/14/2011 Normal [facility] HEMATOLOGY Segs-Bands # 10.5 1.5 - 8.1 07/14/2011 [facility] HEMATOLOGY Lymphocytes # 2.9 1.0 - 5.5 07/14/2011 Normal [facility] HEMATOLOGY Basophils # 0.0 0.0 - 0.2 07/14/2011 [facility] HEMATOLOGY Eosinophils # 0.2 0.0 - 0.5 07/14/2011 [facility] HEMATOLOGY Basophils 0.0 0.0 - 1.0 07/14/2011 [facility] HEMATOLOGY Eosinophils 1.6 0.0 - 4.0 07/14/2011 [facility] HEMATOLOGY Monocytes 3.9 2.0 - 12.0 07/14/2011 [facility] HEMATOLOGY Lymphocytes 20.3 20.0 - 40.0 07/14/2011 [facility] HEMATOLOGY Monocytes # 0.5 0.0 - 0.8 07/14/2011 [facility] HEMATOLOGY Segs 74.2 45.0 - 75.0 07/14/2011 [facility] IMMUNOLOGY CDC-HIV 1/2 Ab Negat capo *NA* (07/14/2011 16:52:00) Negati ve 07/14/2011 NA [facility] Pathology Reports No Data Provided for [...] to patient size -Use of iterative reconstruction technSmarter Agent Mobile ue CT Radiation Dose DLP 358.86 mGy-cm [...] mass or fluid collection. SL: BMUSTAFMelvina 07/09/2018 [facility] Chest 2 views DX Patient Name: JESUS ASCENCIO : 1955; Age: 63 years Female MR: [id number] Study: Chest 2 views DX Order Time: [...] represent mild pulmonary edema or pneumonia. SL: [id number] 07/08/2018 [facility] Ext Upper Venous Doppler Unilat US [...] right upper extremity DVT. SL: MADDI 07/08/2018 [facility] Chest Pulmonary Embolism CTA Patient Name: JESUS ASCENCIO : 1955; Age: 63 years y/o Female MR: [id number] * COMPUTED TOMOGRAPHY SCAN OF THE CHEST [...] lower superior vena cava. SL: MARYANN 07/08/2018 [facility] Shoulder series DX Exam: Right Shoulder [...] joint degenerative arthr opathy. SL: JCHILD-PC 01/12/2018 [facility] Brain wo contrast CT CT HEAD [...] of acute intracranial abnormality. SL: UKUDRATH-M 01/10/2018 [facility] Ext Upper Venous Doppler Unilat US [...] upper extremity venous Doppler. SL: MCHAWMADY-RENETTA 01/10/2018 [facility] Chest Pulmonary Embolism CTA CT ANGIOGRAM [...] to patient size -Use of iterative reconstruction technSmarter Agent Mobile ue CT Radiation Dose DLP 986 mGy-cm [...] or pleural spaces are detected. 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 SL: JANUARY 01/10/2018 [facility] Pulmonary Embolism CTA Clinical Indication: Shortness of [...] pleural effusion or pneumothorax. SL: KPATEL-M 05/29/2016 [facility] ED Abdomen/Pelvis IV contrast only CT Patient Name: JESUS ASCENCIO : 1955; Age: 61 years y/o Female MR: [id number] Study: ED Abdomen/Pelvis IV contrast only CT [...] Lower lumbar facet arthrosis. SL: PJOHNSROLANDO 05/29/2016 [facility] Chest 1view DX Study: Chest 1v iew DX 05/28/2016 5:54 PM CDT Patient Name: JESUS ASCENCIO MR: [id number] : 1955; Age: 61 years y/o Female [...] as above discus sed. SL: TPAINTER-PC 05/28/2016 [facility] Consultation Notes No Data Provided for This Section Discharge Summaries No Data Provided for This Section History and Physicals No Data Provided for This Section Vital Signs Vital Sign Value Date Comments Source Temperature Oral (F) 98.3 F 07/09/2018 [facility] Heart Rate 63 07/09/2018 [facility] Respitory Rate 18 07/09/2018 [facility] Systolic (mm Hg) 125 07/09/2018 [facility] Diastolic (mm Hg) 83 07/09/2018 [facility] Respitory Rate 17 07/09/2018 [facility] Heart Rate 58 07/09/2018 [facility] Systolic (mm Hg) 100 07/09/2018 [facility] Diastolic (mm Hg) 65 07/09/2018 [facility] Temperature Oral (F) 98.2 F 07/09/2018 [facility] Systolic (mm Hg) 92 07/09/2018 [facility] Diastolic (mm Hg) 64 07/09/2018 [facility] Temperature Oral (F) 97.9 F 07/09/2018 [facility] Respitory Rate 17 07/09/2018 [facility] Heart Rate 61 07/09/2018 [facility] BMI Calculated 28.4 07/09/2018 [facility] Weight 72.727 07/09/2018 [facility] Height 160.02 cm 07/09/2018 [facility] BMI Calculated 28.4 07/08/2018 [facility] Weight 72.727 07/08/2018 [facility] Height 160.02 cm 07/08/2018 [facility] Temperature Oral (F) 98.4 F 05/29/2016 [facility] Systolic (mm Hg) 117 05/29/2016 [facility] Diastolic (mm Hg) 61 05/29/2016 [facility] Respitory Rate 16 05/29/2016 [facility] Systolic (mm Hg) 127 05/29/2016 [facility] Diastolic (mm Hg) 65 05/29/2016 [facility] Respitory Rate 15 05/29/2016 [facility] Heart Rate 60 05/29/2016 [facility] Respitory Rate 15 05/29/2016 [facility] Systolic (mm Hg) 144 05/29/2016 [facility] Diastolic (mm Hg) 67 05/29/2016 [facility] Height 160.02 cm 05/28/2016 [facility] BMI Calculated 24.85 05/28/2016 [facility] Weight 63.636 05/28/2016 [facility] Temperature Oral (F) 98.6 F 05/28/2016 [facility] Heart Rate 77 05/28/2016 [facility] Height 160.02 cm 07/14/2011 [facility] Weight 72.727 07/14/2011 [facility] Encounters Location Location Details Encounter Type Encounter Number Reason For Visit Attending Provider ADM Date DC Date Status Source [facility] Emergency [id number] CARA JOSEPHLAND 07/14/2011 07/15/2011 Discharged [facility] Emergency [id number] Eugene Alvarez 05/28/2016 05/29/2016 [facility] Observation [id number] Donald Barrett Jr 07/08/2018 07/10/2018 [facility] Procedures Procedure Code Date Perfomer Comments Source section [id number] [facility] Assessment and Plan Assessment and Plan Date Source Extracted from:Title: Clinical Document Author: Meghann Callaway MD Date: 07/09/18 [facility] Initial Cardiology Consultation Note Reason [...] this morning. Cardiac cottrell she sees a cfo controller but cannot remember his name. She has [...] consult. Call with questions. Extracted from:Title: [facility] [employer] History and Physical Author: Lauryn Cox MD [...] greater than 40 minutes. Lauryn Cox MD [employer] 07/10/2018 [place] Plan of Care No Data Provided for This Section Social History Social History Date Source Social History TypeResponse Smoking Status Never smoker; Exposure to Tobacco Smoke None; Cigarette Smoking Last 365 Days No; Reg Smoking Cessation Counseling No entered on: 07/08/18 07/09/2018 [facility] Family History No Data Provided for This Section Advance Directives No Data Provided for This Section Functional Status No Data Provided for This Section
--- OUTSIDE RECORDS SUMMARY | 2019-10-27 06:39 | XMS REPORT | Continuity of Care Document ---
Author Author Formerly [facility] t Organization [facility] Address [address] [place] [place] [address] Phone Unavailable Care Team Providers Care Connie Cleaner Name Role Phone MD ELISHA CHATTERJEE MD PCP Tobias UNGER Attphys Unavailable ALEXSANDRA JONES Attphys Unavailable Yuri ALANIS Attphys Unavailable NIKKO OCONNOR Attphys Unavailable Ramses Barrett Jr Attphys NITIN VAZQUEZ Attphys Unavailable Mariam Fraga Attphys NIKKO OCONNOR Admphys Unavailable Ramses Barrett Jr Admphys DAVID COX Admphys Unavailable Payers Payer Name Policy Type Policy Number Effective Date Expiration Date S cade [employer] [id number] 2018 00:00:00 [facility] [employer] [id number] 1993 00:00:00 I [facility] Problems Condition Name Condition Details Condition Category Status Onset Date Resolution Date Last Treatment Date Treating Clinician Comments Source CHEST PAIN IN ADULT,ARM PAIN,RT,SOB-SHOR CHEST PAIN IN ADULT,ARM PAIN,RT,SOB-SHOR Active 07/08/2018 [facility] Diagnosis Ac tive 2018-07-08 00:00:00 2018-07-11 12:54:00 [facility] VOMITING / ARM PAIN VOMI TING / ARM PAIN Active 07/08/2018 [facility] Diagnosis Active 2018-07-08 00:00:00 2018-07-08 18:10:00 [facility] Dysphagia Dysphagia Disease Active 2018-05-31 00:00:00 [facility] Pyelonephritis Pyelonephritis Disease Active 2018-05-30 00:00:00 [facility] Hematemesis, presence of nausea not specified Hemateme sis, presence of nausea not specified Disease Active 2018-05-29 00:00:00 Overview: Added automatically from request for surgery [id number] [facility] NOSEBLEED/COUGHING UP BLOOD NO SEBLEED/COUGHING UP BLOOD Active 01/10/2018 [facility] Diagnosis Active 2018-01-10 00:00:00 2018-01-10 22:12:00 [facility] COUMADIN TOXICITY COUM FREDDIE TOXICITY Active 01/10/2018 [facility] Diagnosis Active 2018-01-10 00:00:00 2018-05-18 14:04:00 [facility] ABD PAIN ABD PAIN Active 05/28/2016 [facility] Diagnosis Active 2016-05-28 00:00:00 2017-09-13 14:52:00 [facility] Chest pain Chest pain Problem Active 2015-02-13 00:00:00 [facility] Cerebral infarction CVA (cerebral infarction) Problem Active 2014-09-10 00:00:00 [facility] SENT BY SENT BY Active 07/14/2011 [facility] Diagnosis Active 2011-07-14 00:00:00 2011-07-14 18:22:00 [facility] Abdominal pain Abdominal pain Problem Active [facility] Nausea and vomiting Problem Active [facility] Chest wall pain Problem Active [facility] Hyperlipidemia Hyperlipidemia Disease Active [facility] Anxiety Anxi ety Active Problem 07/17/2011 [facility] Problem Active 2011-07-17 08:40:48 Evens Rollins Back pain Back pain Active Problem 07/17/2011 [facility] Problem Active 2011-07-17 08:40:48 Diony Rollins Chest pain Ches t pain Active Problem 07/17/2011 [facility] Problem Active 2011-07-17 08:40:48 Diony Rollins Deep vein thrombosis Deep vein thrombosis Active Problem 07/17/2011 [facility] Problem Active 2011-07-17 08 :40:48 Diony Rollins Depression Depr ession Active Problem 07/17/2011 [facility] Problem Active 2011-07-17 08:40:48 Diony Rollins Dysmenorrhea Dysm enorrhea Active Problem 07/17/2011 [facility] Problem Active 2011-07-17 08:40:48 Diony Rollins Fracture of knee-cap Frac ture of knee-cap Active Problem 07/17/2011 [facility] Problem Active 2011-07-17 08 :40:48 Diony Rollins Hay fever Hay fever Active Problem 07/17/2011 [facility] Problem Active 2011-07-17 08:40:48 Diony Rollins Incontinence Inco ntinence Active Problem 07/17/2011 [facility] Problem Active 2011-07-17 08:40:48 Diony Rollins Migraine Migr olaf Active Problem 07/17/2011 [facility] Problem Active 2011-07-17 08:40:48 [facility] orial Ayo Nausea and vomiting Naus ea and vomiting Active Problem 07/17/2011 [facility] Problem Active 2011-07-17 08 :40:48 Diony Rollins Neck pain Neck pain Active Problem 07/17/2011 [facility] Problem Active 2011-07-17 08:40:48 Diony Rollins Osteoarthritis Oste oarthritis Active Problem 07/17/2011 [facility] Problem Active 2011-07-17 08:40:48 Diony Rollins Panic disorder Marino c disorder Active Problem 07/17/2011 [facility] Problem Active 2011-07-17 08:40:48 Diony Rollins Pulmonary embolism Pulm onary embolism Active Problem 07/17/2011 [facility] Problem Active 2011-07-17 08 :40:48 Diony Rollins Seizure Seiz ure Active Problem 07/17/2011 [facility] Problem Active 2011-07-17 08:40:48 Evens Rollins Shoulder pain Shou lder pain Active Problem 07/17/2011 [facility] Problem Active 2011-07-17 08:40:48 Diony Rollins Stroke Stro ke Active Problem 07/17/2011 [facility] Problem Active 2011-07-17 08:40:48 Evenskalpesh Rollins Suicide attempt Suic chad attempt Active Problem 07/17/2011 [facility] Problem Active 2011-07-17 08:40:48 Diony Rollins UTI - Urinary tract infection UTI - Urinary tract infection Active Problem 07/17/2011 [facility] Problem Active 2011-07-17 08:40:48 Diony Rollins Anxiety (finding) Anxi ety (finding) Active Problem 07/11/2018 [facility] Problem Active 2018-07-11 23:56:43 Diony Rollins Backache (finding) Back ache (finding) Active Problem 07/11/2018 [facility] Problem Active 2018-07-11 23:56:43 Diony Rollins Deep venous thrombosis (disorder) Deep venous thrombosis (disorder) Active Problem 07/11/2018 [facility] Problem Active 2018-07-11 23:56:43 Diony Rollins Depressive disorder (disorder) Depressive disorder (disorder) Active Problem 07/11/2018 [facility] Problem Active 2018-07-11 23:56:43 Diony Rollins Diabetes mellitus (disorder) D iabetes mellitus (disorder) Active Problem 07/11/2018 [facility] Problem Active 2018-07-11 23:56:43 Diony Rollins Dysmenorrhea (disorder) Dysm enorrhea (disorder) Active Problem 07/11/2018 [facility] Problem Active 2018-07-11 23:56:4 3 Diony Rollins Epilepsy (disorder) Epil epsy (disorder) Active Problem 07/11/2018 [facility] Problem Active 2018-07-11 23:56:43 Diony Rollins Fracture of patella (disorder) Fracture of patella (disorder) Active Problem 07/11/2018 [facility] Problem Active 2018-07-11 23:56:43 Diony Rollins Allergic rhinitis due to pollen (disorder) Allergic rhinitis due to pollen (disorder) Active Problem 07/11/2018 [facility] Problem Active 2018-07-11 23:56:43 [facility]or ial Ayo Hypertensive disorder, systemic arterial (disorder) Hypertensive disorder, systemic arterial (disorder) Active Problem 07/11/2018 [facility] Problem Active 2018-07-11 23:56:43 Diony Rollins Incontinence (finding) Inco ntinence (finding) Active Problem 07/11/2018 [facility] Problem Active 2018-07-11 23:56:4 3 [facility] Ayo Malignant tumor of colon (disorder) Malignant tumor of colon (disorder) Active Problem 07/11/2018 [facility] Problem Active 2018-07-11 23:56:43 [facility] Ayo Migraine (disorder) Migr olaf (disorder) Active Problem 07/11/2018 [facility] Problem Active 2018-07-11 23:56:43 Diony Rollins Neck pain (finding) Neck pain (finding) Active Problem 07/11/2018 [facility] Problem Active 2018-07-11 23:56:43 Diony Rollins Osteoarthritis (disorder) Oste oarthritis (disorder) Active Problem 07/11/2018 [facility] Problem Active 2018-07-11 23:5 6:43 [facility] Ayo Panic disorder (disorder) [place] c disorder (disorder) Active Problem 07/11/2018 [facility] Problem Active 2018-07-11 23:5 6:43 Diony Rollins Pulmonary embolism (disorder) Pulmonary embolism (disorder) Active Problem 07/11/2018 [facility] Problem Active 2018-07-11 23:56:43 Diony Rollins Seizure (finding) Seiz ure (finding) Active Problem 07/11/2018 [facility] Problem Active 2018-07-11 23:56:43 [facility] Ayo Shoulder pain (finding) Shou lder pain (finding) Active Problem 07/11/2018 [facility] Problem Active 2018-07-11 23:56:4 3 [facility] Ayo Sleep apnea (finding) Slee p apnea (finding) Active Problem 07/11/2018 [facility] Problem Active 2018-07-11 23:56:4 3 Diony Rollins Cerebrovascular accident (disorder) Cerebrovascular accident (disorder) Active Problem 07/11/2018 [facility] Problem Active 2018-07-11 23:56:43 Diony Rollins Suicide attempt (disorder) [place] attempt (disorder) Active Problem 07/11/2018 [facility] Problem Active 2018-07-11 23:56:43 Diony Rollins Urinary tract infectious disease (disorder) Urinary tract infectious disease (disorder) Active Problem 07/11/2018 [facility] Problem Active 2018-07-11 23:56:43 [facility] Coronary arteriosclerosis (disorder) Coronary arteriosclerosis (disorder) Active Problem 07/11/2018 [facility] Problem Active 2018-07-11 23:56:43 [facility] CHEST PAIN, UNSPECIFIED CHES T PAIN, UNSPECIFIED Active [facility] Diagnosis Active 2018-07-11 12:54:00 [facility] PAIN IN RIGHT ARM PAIN IN RIGHT ARM Active [facility] Active 2018-07-11 12:54:00 [facility] SHORTNESS OF BREATH SHOR TNESS OF BREATH Active [facility] Active 2018-07-11 12:54:00 [facility] POISONING BY ANTICOAGULANTS, ACCIDENTAL, POISONING BY ANTICOAGULANTS, ACCIDENTAL, Active [facility] Active 2018-05-18 14:04:00 [facility] Urinary tract infection, site not specified Urinary tract infection, site not specified 05/29/2016 06/01/2016 [facility] Problem 2016-05-29 05:00:00 2016-06-01 02:33:09 2016-06-01 02:33:09 [facility] Allergies, Adverse Reactions, Alerts Allergy Name Allergy Type Status Severity Reaction(s) Onset Date Inacti ve Date Treating Clinician Comments Source Ceftriaxone Allergy to substance Active Mild HIVES 2019-08-18 00:00:00 [facility] prochlorperazine DA Active U 2019-04-22 00:00:00 [facility] promethazine DA Active U 2019-04-22 00:00:00 [facility] No Known Allergies DA Active U 2019-04-21 00:00:00 [facility] codeine DA Active SV 2018-08-04 00:00:00 [facility] acetaminophen DA Active SV 2018-08-04 00:00:00 [facility] prochlorperazine maleate DA Active NE 2018-07-30 00:00:00 [facility] ceftriaxone DA Active MO 2018-07-30 00:00:00 [facility] prochlorperazine maleate DA Active NE 2018-06-29 00:00:00 [facility] ceftriaxone DA Active MO 2018-06-29 00:00:00 [facility] Prochlorperazine Edisylate Propensity to adverse reactions Active Hives 2018-05-29 00:00:00 [facility] No Known Allergies DA Active U 2017-12-26 00:00:00 [facility] prochlorperazine maleate DA Active NE 2017-10-18 00:00:00 [facility] ceftriaxone DA Active MO 2017-10-18 00:00:00 [facility] prochlorperazine prochlorperazine Active [facility] Social History Social Habit Start Date Stop Date Quantity Comments Source History SDOH Alcohol Std Drinks [facility] History SDOH Alcohol Binge [facility] Sex Assigned At [facility] History SDOH Alcohol Frequency 2018-05-29 00:00:00 2018-05-29 00:00:0 0 1 [facility] Smoking Status Start Date Stop Date Source Social History [facility] Medications Ordered Medication Name Filled Medication Name Start Date Stop Da te Current Medication? Ordering Clinician Indication Dosage Frequency Signature (SIG) Comments Components Source Dilantin 2018-07-10 02:00:00 No Notes: (Same as: Dilantin) Do not open, crush, or chew. [facility] Phenobarbital 2018-07-10 02:00:00 No Notes: (Same as: Barbdayana, Lexie, Solfoton) [facility] Lipitor 2018-07-10 02:00:00 No Notes: (Same As: Lipitor) [facility] Acetaminophen 300 MG / Codeine Phosphate 30 MG Oral Tablet [Tylenol with Codeine #3] 2018-07-09 23:18:26 Yes 1 tab, PO, Q6H, PRN Pain, X 7 day, # 28 tab, 0 Refill(s) [facility] Acetaminophen 300 MG / Codeine Phosphate 30 [...] - P Waste Black (Same As: Coumadin) [facility] atorvastatin 10 mg oral tablet 2018-07-09 19:42:00 Yes 20 mg = 2 tab, PO, Bedtime, 0 Refill(s) [facility] Kasandra michael Lyrica 2018-07-09 14:00:00 No Notes: (Same as: Lyrica) [facility] Ayo Dilantin 2018-07-09 14:00:00 No Notes: (Same as: Dilantin) Do not open, crush, or chew. [facility] Omeprazole 2018-07-09 14:00:00 No 20 mg, Route: PO, Daily, Dosing Weight 72.727, kg, Start date: 07/09/18 9:00:00 CDT, Duration: 30 day, Stop date: 08/07/18 9:00:00 CDT [facility] denisse Citalopram 2018-07-09 14:00:00 No 20 mg, 2 tab, Route: PO, Drug form: TAB, Daily, Dosing Weight 72.727, kg, Start date: 07/09/18 9:00:00 CDT, Duration: 30 day, Stop date: 08/07/18 9:00:00 CDT [facility] Saline Flush 0.9% 2018-07-09 14:00:00 No Notes: (Same as: BD Posiflush) [facility] Protonix 2018-07-09 14:00:00 No Notes: Tablet should not be chewed or crushed. (Same as: Protonix) [facility] Phenobarbital 2018-07-09 13:00:00 No Notes: (Same as: Barbita, Luminal, Solfoton) [facility] Morphine 2018-07-09 07:11:00 No Not es: (Same as:MORPhine Sulfate) [facility] Ketorolac 2018-07-09 05:03:00 No 4 days. [facility] Saline Flush 0.9% 2018-07-09 05:02:00 No Notes: (Same as: BD Posiflush) [facility] Nitroglycerin 2018-07-09 05:02:00 No Notes: (Same as:Nitroquick, Nitrostat) "Do Not Crush" Sublingual tablet [facility] pneumococcal capsular polysaccharide typ e 1 vaccine / pneumococcal capsular polysaccharide type 10A vaccine / pneumococcal capsular polysaccharide type 11A vaccine / pneumococcal capsular polysaccharide type 12F vaccine / pneumococcal capsular polysacchar 2018-07-09 04:16:45 No Notes: (Same as: Pneumovax 23) Refrigerate Diony salcedo Ketorolac 2018-07-09 02:35:00 No 15 mg, Route: IVP, Drug form: INJ, ONCE, Dosing Weight 72.727, kg, Priority: STAT, Start date: 07/08/18 21:35:00 CDT, Stop date: 07/08/18 21:35:00 CDT [facility] warfarin (COUMADIN) 5 MG tablet 2018-06-03 00:00:00 Yes Use 5 mg PO daily Sunday through Sunday, use 2.5 mg (1/2 tab of 5 mg) po Sat and Sun. [facility] phenytoin (DILANTIN) 100 MG ER capsule 2018-05-30 13:31:27 Yes 100mg QD Take 100 mg by mouth every morning . [facility] PHENobarbital (LUMINAL) 30 MG tablet 2018-05-30 13:31:27 Ye s 90mg QD Take 90 mg by mouth nightly. [facility] phenytoin (DILANTIN) 100 MG ER capsule 2018-05-30 13:31:26 Yes 300mg QD Take 300 mg by mouth nightly. [facility] PHENobarbital (LUMINAL) 30 MG tablet 2018-05-30 13:31:26 Ye s 30mg QD Take 30 mg by mouth every morning. [facility] insulin glargine (LANTUS) 100 unit/mL injection 2018-05-30 10:09 :50 Yes Inject subcutaneously 3 (three) times daily before devan ls Sliding scale. [facility] tiZANidine (ZANAFLEX) 4 MG tablet 2018-05-30 05:39:51 Yes 4mg Take 4 mg by mouth every 6 (six) hours as needed. [facility] ondansetron (ZOFRAN) 4 MG tablet 2018-05-30 05:39:50 Yes 4mg Take 4 mg by mouth 2 (two) times daily as needed for Nausea. [facility] PARoxetine (PAXIL) 20 MG tablet 2018-05-30 05:39:50 Yes 20mg QD Take 20 mg by mouth every morning. [facility] phenazopyridine (PYRIDIUM) 100 MG tablet 2018-05-30 05:39:50 Yes 100mg Take 100 mg by mouth 3 (three) times daily as needed for Pain. [facility] traMADol (ULTRAM) 50 mg tablet 2018-05-30 05:39:50 Yes 50mg Take 50 mg by mouth every 6 (six) hours as needed for Pain. [facility] pregabalin (LYRICA) 100 MG capsule 2018-05-30 05:39:49 Yes 100mg QD Take 100 mg by mouth daily. [facility] magnesium oxide (MAG-OX) 400 mg (241.3 mg magnesium) tablet 2018-05-30 05:39:49 Yes 400mg QD Take 400 mg by mouth daily. [facility] mesalamine (LIALDA) 1.2 gram EC tablet 2018-05-30 05:39:49 Yes 1200mg Take 1,200 mg by mouth daily with breakfast. [facility] metoclopramide (REGLAN) 5 MG tablet 2018-05-30 05:39:49 Yes 5mg QD Take 5 mg by mouth daily. [facility] nitroglycerin (NITROSTAT) 0.4 MG SL tablet 2018-05-30 05:39:[address] 0.4 mg under the tongue every 5 (f capo) minutes as needed for Chest pain Put 1 pill under tongue every 5min as needed for chest pain.No more than 3 doses in 15min.Call 911 if pain is unrelieved 5min after 1st dose . [facility] insulin 70/30, insulin NPH-insulin regul ar, (HUMULIN 70/30) 100 unit/mL (70-30) InPn insulin pen 2018-05-30 05:39:49 Yes 1U Inject 1-10 Units subcutaneously 2 (two) times daily before meals. [facility] HYDROcodone-acetaminophen (NORCO 10-325) 10-325 mg per table t 2018-05-30 05:22:53 Yes 1{tbl} Take 1 tab let by mouth every 6 (six) hours as needed for Pain. [facility] hydrocortisone 2.5 % cream 2018-05-30 05:22:53 Yes Q.5D Apply topically 2 (two) times daily. [facility] dicyclomine (BENTYL) 20 mg tablet 2018-05-30 05:22:52 Yes 20mg QD Take 20 mg by mouth daily. [facility] diphenhydrAMINE (BENADRYL) 25 mg tablet 2018-05-30 04:28:16 Yes 25mg Take 25 mg by mouth every 4 (four) hours as needed for Itching or Sleep. [facility] Ondansetron Hcl (Zofran*) 4 Mg TABLET Ondansetron Hcl (Zofra n*) 4 Mg TABLET 2018-04-01 07:41:00 Yes 4 Every 4 Hour s as needed for Nausea/Vomiting [facility] Pantoprazole Sodium (Protonix) 40 Mg TABLET. Pantopr azole Sodium (Protonix) 40 Mg TABLET. 2018-04-01 07:41:00 2018-08-11 00:00:00 No 40 Every 12 Hours [facility] tramadol hydrochloride 50 MG Oral Tablet 2016-05-29 07:18:00 Yes 50 mg = 1 tab, PO, Q12H, PRN Pain, X 10 day, # 20 tab, 0 Refill(s) [facility] tramadol hydrochloride 50 MG Oral Tablet 2016-05-29 06:57:00 No 50 mg, Route: PO, Drug form: TAB, ONCE, Dosing Weight 63.636, kg, Priority: STAT, Start date: 05/29/16 1:57:00 CDT, Stop date: 05/29/16 1:57:00 CDT [facility] ciprofloxacin 500 mg oral tablet 2016-05-29 06:39:00 Yes 500 mg = 1 tab, PO, Q12H, X 10 day, # 20 tab, 0 Refill(s) [facility] Diphenhydramine 2016-05-29 04:59:00 No 25 mg, Route: IVP, ONCE, Dosing Weight 63.636, kg, Priority: STAT, Start date: 05/28/16 23:59:00 CDT, Stop date: 05/28/16 23:59:00 CDT Maryellen Rollins Prednisone 2016-05-29 04:59:00 No 60 mg, Route: PO, Drug form: TAB, ONCE, Dosing Weight 63.636, kg, Priority: STAT, Start date: 05/28/16 23:59:00 CDT, Stop date: 05/28/16 23:59:00 CDT Ut rolf Rollins Ciprofloxacin 2016-05-29 04:59:00 No 400 mg, Route: IVPB, ONCE, Dosing Weight 63.636, kg, Priority: STAT, Start date: 05/28/16 23:59:00 CDT, Stop date: 05/28/16 23:59:00 CDT Maryellen Rollins Ceftriaxone 2016-05-29 04:04:00 No 1 gm, Route: IVPB, Drug form: PDR/INJ, ONCE, Dosing Weight 63.636, kg, Priority: STAT, Start date: 05/28/16 23:04:00 CDT, Stop date: 05/28/16 23:04:00 CDT [facility] Ayo Ondansetron 2016-05-29 03:22:00 No 4 mg, Route: IVP, Drug form: INJ, ONCE, Dosing Weight 63.636, kg, Priority: STAT, Start date: 05/28/16 22:22:00 CDT, Stop date: 05/28/16 22:22:00 CDT Ut rolf Rollins Morphine 2016-05-29 03:22:00 No 4 mg, Route: IVP, ONCE, Dosing Weight 63.636, kg, Priority: STAT, Start date: 05/28/16 22:22:00 CDT, Stop date: 05/28/16 22:22:00 CDT [facility] Ondansetron 2016-05-29 01:49:00 No 4 mg, Route: IVP, Drug form: INJ, ONCE, Dosing Weight 63.636, kg, Priority: STAT, Start date: 05/28/16 20:49:00 CDT, Stop date: 05/28/16 20:49:00 CDT [facility] Morphine 2016-05-29 01:49:00 No 4 mg, Route: IVP, ONCE, Dosing Weight 63.636, kg, Priority: STAT, Start date: 05/28/16 20:49:00 CDT, Stop date: 05/28/16 20:49:00 CDT [facility] Ayo Saline Flush 0.9% 2016-05-28 22:54:00 No Notes: (Same as: BD Posiflush) [facility] Ayo Lovenox 40 mg/0.4 mL subcutaneous solution 2011-07-15 05:1 4:39 Yes Rosie Collado Jeremy 40 mg, SUB-Q, Daily, 5 mL, Substitution Allowed Diony Magdalenoann Lovenox 2011-07-15 05:07:00 No Rosie L [place] 80 mg, Route: SUB-Q, ONCE, Start date: 07/15/11 0:07:00, Stop date: 07/15/11 0:07:00 [facility] Ayo hydromorphone 2011-07-15 05:02:00 No Rosie Collado [place] 0.5 mg, 0.25 mL, Route: IVP, Drug form: INJ, ONCE, Priority: STAT, Start date: 07/15/11 0:02:00, Stop date: 07/15/11 0:02:00 [facility] [place] Coumadin 10 mg oral tablet 2011-07-15 04:03:52 Yes Meghan peralta L Jeremy 10 mg, 1 tab, PO, Daily, 30 tab, Substitution Allowed, TAB [facility] Ayo Lovenox 80 mg/0.8 mL subcutaneous solution 2011-07-15 04:0 2:57 Yes Rosie L [place] 80 mg, 0.8 ml, SUB-Q, Daily, 4 mL, S ubstitution Allowed, SOLN [facility] Ayo Lovenox 2011-07-15 04:02:00 No Rosie L [place] 80 mg, 0.8 mL, Route: IV, Drug form: INJ, ONCE, Start date: 07/14/11 23:02:00, Stop date: 07/14/11 23:02:00 [facility] Ayo ondansetron 2011-07-15 01:30:00 No Rosie L Jeremy 4 mg, 2 mL, Route: IVP, Drug form: INJ, ONCE, Priority: STAT, Start date: 07/14/11 20:30:00, Stop date: 07/14/11 20:30:00 [facility] 5/325 oral tablet 2011-07-15 00:23:00 No Rosie Luna 2 tab, Route: PO, Drug Form: TAB, ONCE, Start date: 07/14/11 19:23:00, Stop date: 07/14/11 19:23:00 [facility] Ayo Benadryl 2011-07-14 23:20:37 Yes Substitutio n Allowed [facility] Unknown Home Medication 2011-07-14 23:20:20 Yes Substitution Allowed [facility] Dilantin 2011-07-14 23:20:06 Yes Substitutio n Allowed [facility] Zanaflex 2011-07-14 23:19:59 Yes Substitutio n Allowed [facility] Unknown Home Medication 2011-07-14 23:19:43 Yes Substitution Allowed [facility] Lyrica 2011-07-14 23:19:19 Yes Substitution Allowed [facility] Unknown Home Medication 2011-07-14 23:19:08 Yes Substitution Allowed [facility] ondansetron 2011-07-14 23:16:00 No Marta Iraheta 4 mg, Route: IVP, Drug form: INJ, ONCE, Priority: STAT, Start date: 07/14/11 18:16:00, Stop date: 07/14/11 18:16:00 [facility] aspirin 325 mg tablet 2011-07-14 22:49:00 No Marta Kaplan uford 325 mg, 1 tab, Route: PO, Drug form: TAB, ONCE, Priority: STAT, Start date: 07/14/11 17:49:00, Stop date: 07/14/11 17:49:00 [facility] 2011-07-14 22:28:00 No Marta Iraheta 1 mg, 0.5 mL, Route: IVP, Drug form: INJ, ONCE, Priority: STAT, Start date: 07/14/11 17:28:00, Stop date: 07/14/11 17:28:00 [facility] influenza virus vaccine, inactivated 2011-05-31 14:00:00 No SYSTEM SYSTEM 0.5 mL, Route: IM, Drug Form : SUSP, Start date: 05/31/11 9:00:00, Stop date: 05/31/11 9:00:00 [facility] Hydrocodone Bit/Acetaminophen (Hydrocodon-Acetaminophn 10-325) 1 Each TABLET Hydrocodone Bit/Acetaminophen (Hydrocodon-Acetaminophn 10-325) 1 Each TABLET Yes 1 Every 4 Hours as needed for Pain [facility] Insulin Glargine (Lantus) 100 Units/Ml ML Insulin Glar gine (Lantus) 100 Units/Ml ML Yes Use As Directed [facility] Magnesium Oxide Magnesium Oxide Yes 400 Daily [facility] Pantoprazole Sodium (Protonix) 40 Mg TABLET. Pantopr azole Sodium (Protonix) 40 Mg TABLET. Yes 40 Daily [facility] Paroxetine Hcl Paroxetine Hcl Yes 20 Daily [facility] Phenazopyridine Hcl Phenazopyridine Hcl Yes 100 Before Meals [facility] Phenobarbital Phenobarbital Yes 30 Am [facility] Phenobarbital Phenobarbital Yes 90 Pm [facility] Phenytoin Sodium Extended (Dilantin) 100 Mg CAPSULE Ph enytoin Sodium Extended (Dilantin) 100 Mg CAPSULE Yes 100 Daily [facility] Phenytoin Sodium Extended (Dilantin) 100 Mg CAPSULE Ph enytoin Sodium Extended (Dilantin) 100 Mg CAPSULE Yes 300 Bedtime [facility] Sertraline Hcl (Zoloft) 50 Mg TABLET Sertraline Hcl (Zoloft) 50 Mg TABLET Yes 50 Daily [facility] Warfarin Sodium (Coumadin) 10 Mg TABLET Warfarin Sodium (Cou madin) 10 Mg TABLET Yes 10 Daily [facility] Zolpidem Tartrate (Ambien) 10 Mg TABLET Zolpidem Tartrate (A mbien) 10 Mg TABLET Yes 10 Bedtime as needed for Insomnia [facility] Oxycodone Hcl (Oxycontin) 30 Mg TAB.ER.12H Oxycodone H cl (Oxycontin) 30 Mg TAB.ER.12H 2018-03-28 00:00:00 No 30 Four Times Da vandana [facility] Rivaroxaban (Xarelto) 10 Mg TABLET Rivaroxaban (Xarelto) 10 Mg T ABLET 2018-03-28 00:00:00 No 10 Daily [facility] Vital Signs Vital Name Observation Time Observation Value Comments Source Weight 2019-09-23 20:24:00 183 [lb_av] [facility] BMI (Body Mass Index) 2019-09-23 20:24:00 32.4 kg/m2 [facility] Body Temperature 2019-08-24 07:58:00 96.7 [degF] [facility] Weight 2019-08-18 21:55:00 183.25 [lb_av] [facility] BMI (Body Mass Index) 2019-08-18 21:55:00 32.5 kg/m2 [facility] Temperature Oral (F) 2018-07-09 20:53:00 98.3 F [facility] Heart Rate 2018-07-09 20:53:00 [facility] Respitory Rate 2018-07-09 20:53:00 [facility] [place] Systolic (mm Hg) 2018-07-09 20:53:00 [facility] Diastolic (mm Hg) 2018-07-09 20:53:00 [facility] Respitory Rate 2018-07-09 16:17:00 [facility] [place] Heart Rate 2018-07-09 16:17:00 [facility] [place] Systolic (mm Hg) 2018-07-09 16:17:00 [facility] Diastolic (mm Hg) 2018-07-09 16:17:00 [facility] Temperature Oral (F) 2018-07-09 16:17:00 98.2 F [facility] [place] Systolic (mm Hg) 2018-07-09 12:09:00 [facility] Diastolic (mm Hg) 2018-07-09 12:09:00 [facility] [place] Temperature Oral (F) 2018-07-09 12:09:00 97.9 F [facility] Respitory Rate 2018-07-09 12:09:00 [facility] [place] Heart Rate 2018-07-09 12:09:00 [facility] [place] BMI Calculated 2018-07-09 04:12:00 [facility] [place] Weight 2018-07-09 04:12:00 [facility] Height 2018-07-09 04:12:00 160.02 cm [facility] BMI Calculated 2018-07-08 18:44:00 [facility] Weight 2018-07-08 18:44:00 [facility] [place] Height 2018-07-08 18:44:00 160.02 cm [facility] Temperature Oral (F) 2016-05-29 07:05:00 98.4 F [facility] Systolic (mm Hg) 2016-05-29 07:05:00 [facility] Diastolic (mm Hg) 2016-05-29 07:05:00 [facility] Respitory Rate 2016-05-29 07:05:00 [facility] [place] Systolic (mm Hg) 2016-05-29 03:33:00 [facility] [place] Diastolic (mm Hg) 2016-05-29 03:33:00 [facility] Respitory Rate 2016-05-29 03:33:00 [facility] [place] Heart Rate 2016-05-29 02:31:00 [facility] [place] Respitory Rate 2016-05-29 02:31:00 [facility] [place] Systolic (mm Hg) 2016-05-29 02:31:00 [facility] Diastolic (mm Hg) 2016-05-29 02:31:00 [facility] Height 2016-05-28 22:52:00 160.02 cm [facility] [place] BMI Calculated 2016-05-28 22:52:00 [facility] [place] Weight 2016-05-28 22:52:00 [facility] Temperature Oral (F) 2016-05-28 22:52:00 98.6 F [facility] Heart Rate 2016-05-28 22:52:00 [facility] [place] Height 2011-07-14 21:45:00 160.02 cm [facility] [place] Weight 2011-07-14 21:45:00 [facility] Procedures Procedure Date / Time Performed Performing Clinician [facility] Computed tomography of chest with contrast 2019-09-23 00:00:00 [facility] Computed tomography of brain without radiopaque contrast 2019-07 00:00:00 [facility] Computed tomography of abdomen and pelvis with contrast 00:00:00 [facility] APPLY FOREARM SPLINT 2019-06-15 00:00:00 [facility] EMERGENCY DEPT VISIT 2019-06-15 00:00:00 [facility] Computed tomography of brain without radiopaque contrast 2019-05 00:00:00 [facility] Computed tomography of cervical spine without contrast 2019-05-22 6 00:00:00 [facility] Computed tomography of abdomen and pelvis with contrast 2018 00:00:00 ERICKA UNGER [facility] section [facility] Plan of Care Planned Activity Planned Date Details Comments Source Instructions Chest Pain - Chest Wall [facility] Encounters Start Date/Time End Date/Time Encounter Type Admission Type Attendi [facility] Care Department Encounter ID Source 2019-09-23 20:25:00 2019-09-24 00:30:00 Departed Emergency Room 1 ALEXSANDRA JONES [facility] [id number] [facility] 2019-08-21 09:19:00 2019-08-24 13:22:00 [facility] [id number] [facility] 2019-06-15 22:20:00 2019-06-16 00:05:00 Departed Emergency Room 1 ERICKA UNGER [facility] [id number] I [facility] 2019-01-21 18:06:00 2019-01-21 22:08:00 Departed Emergency Room 1 ANNABELLE [facility] [id number] [facility] 2018-11-14 16:46:00 2018-11-14 21:42:00 Departed Emergency Room 1 ANNABELLE [facility] [id number] [facility] 2018-08-09 16:27:00 2018-08-12 19:45:00 Discharged Inpatient (obs) 1 NIKKO OCONNOR [facility] [id number] [facility] 2018-07-08 13:34:03 2018-07-09 19:24:00 Outpatient Donald Barrett [facility] [id number] 2018-07-08 21:33:00 2018-07-08 21:33:00 Outpatient Desire [facility] 2018-03-31 18:31:00 2018-04-02 11:30:00 Discharged Inpatient 1 NIKKO OCONNOR [facility] [id number] [facility] 2017-12-28 07:41:00 2017-12-28 13:45:00 Departed Emergency Room 1 TONYA ALNAIS [facility] [id number] [facility] 2016-05-28 17:46:00 2016-05-29 03:05:00 Outpatient Eugene Fraga [facility] [id number] Results Test Description Test Time Test Comments Results Result Comments Source CT ABDOMEN/PELVIS W 2019-10-27 04:17:00 [place] [address] Patient Name: JESUS ASCENCIO MR #: [id number] : 1955 Age/Sex: 64/F Req #: [id number] Adm Physician: Ordered by: ERICKA UNGER MD Report #: [id number] Location: ER Room/Bed: Procedure: CT/CT ABDOMEN/PELVIS W Exam Date: Exam Time: REPORT STATUS: Signed EXAM: CT Abdomen and Pelvis WITH contrast INDICATION: ABD PAIN, RECTAL BLEEDING, H/O COLON CANCER WITH RESECTION Y COMPARISON: CT abdomen/pelvis dated 08/18/2019 TECHNIQUE: Abdomen and pelvis were scanned utilizing a multidetector helical scanner from the lung base to the pubic symphysis after administration of IV contrast. Coronal and sagittal reformations were obtained. Dose modulation, iterative reconstruction, and/or weight based adjustment of the mA/kV was utilized to reduce the radiation dose to as low as reasonably achievable. Routine protocol was performed. Scan was performed when during portal venous phase. IV CONTRAST: 100 mL of Isovue-370 ORAL CONTRAST: Gastroview COMPLICATIONS: None RADIATION DOSE: Total DLP: 665.34 mGy*cm Estimated effective dose: (DLP x 0.015 x size factor) mSv CTDIvol has been reviewed. It is below the limits set by the Radiation Protocol Committee (RPC). FINDINGS: LINES and TUBES: None. LOWER THORAX: More conspicuous 4 mm right lower lobe groundglass nodule (series 2, image 6). Paramediastinal right lower lobe focal area of groundglass haziness. HEPATOBILIARY: Hepatic steatosis. No focal hepatic lesions. No biliary ductal dilation. GALLBLADDER: Surgically absent. SPLEEN: No splenomegaly. PANCREAS: No focal masses or ductal dilatation. ADRENALS: No adrenal nodules KIDNEYS/URETERS: Kidneys enhance symmetrically. No hydronephrosis. No cystic or solid mass lesions. No stones. GI TRACT: No abnormal distention, wall thickening, or evidence of bowel obstruction. Intact sigmoid anastomosis. Appendix is not visualized. Scattered colonic diverticula without evidence of diverticulitis. PELVIC ORGANS/BLADDER: Unremarkable. Pelvic surgical clips are again seen. LYMPH NODES: No lymphadenopathy. VESSELS: Unremarkable. PERITONEUM / RETROPERITONEUM: No free air or fluid. BONES: Unremarkable. SOFT TISSUES: Small fat- containing umbilical hernia. Bilateral gluteal injection granulomas. IMPRESSION: 1. More conspicuous 4 mm right lower lobe groundglass lung nodule. Attention on follow-up examination in 6 months. 2. Para mediastinal right lower lobe focal area of groundglass haziness, new from prior exam, could represent subsegmental atelectasis versus developing pneumonia in the appropriate clinical context. 3. No acute inflammatory process in the abdomen/pelvis. 4. Hepatic steatosis. Signed by: Dr. El Sesay MD on 10/27/2019 4:31 AM Dictated By: EL SESAY MD 0 Transcribed By: DARION on 10/27/19430 COPY TO: ERICKA UNGER MD CT CHEST W 2019-09-23 22:42:00 [facility] [address] [address] Patient Name: JESUS ASCENCIO MR #: [id number] : 1955 Age/Sex: 64/F Req #: [id number] Adm Physician: Ordered by: ALEXSANDRA JONES DO Report #: [id number] Location: ER Room/Bed: Procedure: [id number] CT/CT CHEST W Exam Date: 09/23/19 Exam [...] Count (test code = 6690-2) 7.26 4.8-10.8 [facility] automated count (number/volume)2019-09-23 20:40:00* Test Item Value Reference Range Interpretation Comments Red Blood Count (test code = 789-8) 4.27 3.6-5.1 [facility] hemoglobin measurement (moles/volume)2019-09-23 20:40:00* Test Item Value Reference Range Interpretation Comments Hemoglobin (test code = 79212-2) 13.1 12.0-16.0 [facility] TexasAutomated blood hematocrit (volume fraction)2019-09-23 20:40:00* Test Item Value Reference Range Interpretation Comments Hematocrit (test code = 4544-3) 39.6 34.2-44.1 [facility] TexasAutomated erythrocyte mean corpuscular tbfsjd1480-06-44 20:40:00* Test Item Value Reference Range Interpretation Comments Mean Corpuscular Volume (test code = 787-2) 92.7 81-99 [facility] TexasAutomated erythrocyte mean corpuscular hemoglobin (mass per erythrocyte)2019-09-23 20:40:00* Test Item Value Reference Range Interpretation Comments Mean Corpuscular Hemoglobin (test code = 785-6) 30.7 28-32 [facility] TexasAutomated erythrocyte mean corpuscular hemoglobin concentration measurement (mass/volume)2019-09-23 20:40:00* Test Item Value Reference Range Interpretation Comments Mean Corpuscular Hemoglobin Concent (test code = 786-4) 33.1 31-35 [facility] TexasRDW IwgMp-Byi1131-95-04 20:40:00* Test Item Value Reference Range Interpretation Comments Red Cell Distribution Width (test code = 14131-3) 13.0 11.7 -14.4 [facility] TexasAutomated blood platelet count (count/volume)2019-09-23 20:40:00* Test Item Value Reference Range Interpretation Comments Platelet Count (test code = 777-3) 203 140-360 [facility] TexasAutomated blood segmented neutrophil count as percentage of total peigdjqdmn5445-91-33 20:40:00* Test Item Value Reference Range Interpretation Comments Neutrophils (%) (Auto) (test code = 23710-0) 46.8 38.7-80.0 [facility] count as percentage ot total bddaqmdlgo6990-75-96 20:40:00* Test Item Value Reference Range Interpretation Comments Lymphocytes (%) (Auto) (test code = 736-9) 38.8 18.0-39.1 [facility] TexasAutomated blood monocyte count as percentage of total cpemyymuhd7131-42-43 20:40:00* Test Item Value Reference Range Interpretation Comments Monocytes (%) (Auto) (test code = 5905-5) 8.5 4.4-11.3 [facility] TexasAutomated blood eosinophil count as percentage of total sxeukkgpxd5084-73-50 20:40:00* Test Item Value Reference Range Interpretation Comments Eosinophils (%) (Auto) (test code = 713-8) 5.0 0.0-6.0 [facility] TexasAutomated blood basophil count as percentage of total woqnexbdll8935-38-15 20:40:00* Test Item Value Reference Range Interpretation Comments Basophils (%) (Auto) (test code = 706-2) 0.6 0.0-1.0 [facility] TexasFluoroscopic procedure less than one hour sxruuhzt4819-29-15 20:40:00* Test Item Value Reference Range Interpretation Comments IM GRANULOCYTES % (test code = IM GRANULOCYTES %) 0.3 0.0- 1.0 [facility] TexasAutomated blood neutrophil count 2019-09-23 20:40:00* Test Item Value Reference Range Interpretation Comments Neutrophils # (Auto) (test code = 751-8) 3.4 2.1-6.9 [facility]Blood lymphocytes count (number/volume) 2019-09-23 20:40:00* Test Item Value Reference Range Interpretation Comments Lymphocytes # (Auto) (test code = 63285-9) 2.8 1.0-3.2 [facility] TexasBlood monocytes automated count (number/volume)2019-09-23 20:40:00* Test Item Value Reference Range Interpretation Comments Monocytes # (Auto) (test code = 742-7) 0.6 0.2-0.8 [facility] TexasAutomated blood eosinophil count 2019-09-23 20:40:00* Test Item Value Reference Range Interpretation Comments Eosinophils # (Auto) (test code = 711-2) 0.4 0.0-0.4 [facility] TexasAutomated blood basophil count (count/volume)2019-09-23 20:40:00* Test Item Value Reference Range Interpretation Comments Basophils # (Auto) (test code = 704-7) 0.0 0.0-0.1 [facility] TexasFluoroscopic procedure less than one hour lkrcchfx5361-05-07 20:40:00* Test Item Value Reference Range Interpretation Comments Absolute Immature Granulocyte (auto (sidney t code = Absolute Immature Granulocyte (auto) 0.02 0-0.1 [facility] sodium measurement (moles/volume)2019-09-23 20:40:00* Test Item Value Reference Range Interpretation Comments Sodium Level (test code = 2951-2) 140 136-145 [facility] plasma potassium measurement (moles/volume)2019-09-23 20:40:00* Test Item Value Reference Range Interpretation Comments Potassium Level (test code = 2823-3) 3.5 3.5-5.1 [facility] plasma chloride measurement (moles/volume)2019-09-23 20:40:00* Test Item Value Reference Range Interpretation Comments Chloride Level (test code = 2075-0) 109 98-107 [facility] plasma carbon dioxide, total measurement (moles/volume)2019-09-23 20:40:00* Test Item Value Reference Range Interpretation Comments Carbon Dioxide Level (test code = 2028-9) 22 22-29 [facility] plasma anion slu7825-29-98 20:40:00* Test Item Value Reference Range Interpretation Comments Anion Gap (test code = 18333-8) 12.5 8-16 [facility] plasma urea nitrogen measurement (mass/volume)2019-09-23 20:40:00* Test Item Value Reference Range Interpretation Comments Blood Urea Nitrogen (test code = 3094-0) 10 7-26 [facility] plasma creatinine measurement (mass/volume)2019-09-23 20:40:00* Test Item Value Reference Range Interpretation Comments Creatinine (test code = 2160-0) 0.76 0.57-1.11 [facility] plasma urea nitrogen/creatinine mass cbmdt6522-43-08 20:40:00* Test Item Value Reference Range Interpretation Comments BUN/Creatinine Ratio (test code = 3097-3) 13 6-25 [facility] TexasEstimated glomerular filtration rate (GFR) czyypgdzuypui1855-40-29 20:40:00* Test Item Value Reference Range Interpretation Comments Estimat Glomerular Filtration Rate (test code = 594007930) > 60 >60 Ranges were taken from the National Kidney Disease Education Program and the [facility] Kidney Foundation literature.Reference ranges:60 or greater: Qwwrnd88-64 ( for 3 consecutive months): Chronic kidney disease 15 or less: Kidney failureBaptist Hospitals of Southeast TexasGlucose quzzztwajza5203-28-58 20:40:00* Test Item Value Reference Range Interpretation Comments Glucose Level (test code = CCG2127) 100 74-118 [facility] plasma calcium measurement (mass/volume)2019-09-23 20:40:00* Test Item Value Reference Range Interpretation Comments Calcium Level (test code = 07825-7) 8.7 8.4-10.2 [facility] plasma total bilirubin measurement (mass/volume)2019-09-23 20:40:00* Test Item Value Reference Range Interpretation Comments Total Bilirubin (test code = 1975-2) 0.3 0.2-1.2 [facility] TexasFluoroscopic procedure less than one hour tnenyabc8629-35-94 20:40:00* Test Item Value Reference Range Interpretation Comments Aspartate Amino Transf (AST/SGOT) (test code = Aspartate Amino Transf (AST/SGOT)) 33 5-34 [facility] plasma alanine aminotransferase measurement (enzymatic activity/volume)2019-09-23 20:40:00* Test Item Value Reference Range Interpretation Comments Alanine Aminotransferase (ALT/SGPT) (test code = 1742-6) 38 0-55 [facility] plasma protein measurement (mass/volume)2019-09-23 20:40:00* Test Item Value Reference Range Interpretation Comments Total Protein (test code = 2885-2) 7.8 6.5-8.1 [facility] plasma albumin measurement (mass/volume)2019-09-23 20:40:00* Test Item Value Reference Range Interpretation Comments Albumin (test code = 1751-7) 3.5 3.5-5.0 [facility] TexasPlasma globulin measurement (mass/volume) 2019-09-23 20:40:00* Test Item Value Reference Range Interpretation Comments Globulin (test code = 31311-0) 4.3 2.3-3.5 [facility] plasma albumin/globulin mass jucvr5400-15-84 20:40:00* Test Item Value Reference Range Interpretation Comments Albumin/Globulin Ratio (test code = 1759-0) 0.8 0.8-2.0 [facility] plasma alkaline phosphatase measurement (enzymatic activity/volume)2019-09-23 20:40:00* Test Item Value Reference Range Interpretation Comments Alkaline Phosphatase (test code = 6768-6) 80 40-150 [facility] TexasCapillary blood glucose measurement by glucometer (mass/volume)2019-08-24 10:42:00* Test Item Value Reference Range Interpretation Comments Bedside Glucose (test code = 22043-4) 128 70-120 Meter ID: [id number] Central TexasCapillary blood glucose measurement by glucometer (mass/volume)2019-08-24 10:42:00* Test Item Value Reference Range Interpretation Comments Bedside Glucose (test code = 03956-1) 128 70-120 Meter ID: [id number] Central TexasProthrombin time (PT) in platelet poor plasma by coagulation pywlu5869-94-45 05:19:00* Test Item Value Reference Range Interpretation Comments Prothrombin Time (test code = 5902-2) 27.8 11.9-14.5 [facility] TexasINR in Platelet poor plasma by Coagulation fonqh5685-63-23 05:19:00* Test Item Value Reference Range Interpretation Comments Prothromb Time International Ratio (test code = 6301-6) 2.38 Oral Anticoagulant Therapy INR Values:1. Low Intensity Therapy 1.5 - 2.02 . Moderate Intensity Therapy 2.0 - 3.03. High Intensity Therapy(1) 2.5 - 3. 54. High Intensity Therapy(2) 3.0 - 4.05. Panic Value INR > 5.0 [facility] or plasma thyrotropin measurement by detection limit <= 0.005 miu/l (units/volume)2019-08-24 05:19:00* Test Item Value Reference Range Interpretation Comments Thyroid Stimulating Hormone (TSH) (test code = 83605-2) 2.340 0.350-4.940 [facility] TexasProthrombin time (PT) in platelet poor plasma by coagulation akuwl4222-55-78 05:19:00* Test Item Value Reference Range Interpretation Comments Prothrombin Time (test code = 5902-2) 27.8 11.9-14.5 [facility] TexasINR in Platelet poor plasma by Coagulation jkbji3530-20-18 05:19:00* Test Item Value Reference Range Interpretation Comments Prothromb Time International Ratio (test code = 6301-6) 2.38 Oral Anticoagulant Therapy INR Values:1. Low Intensity Therapy 1.5 - 2.02 . Moderate Intensity Therapy 2.0 - 3.03. High Intensity Therapy(1) 2.5 - 3. 54. High Intensity Therapy(2) 3.0 - 4.05. Panic Value INR > 5.0 [facility] or plasma thyrotropin measurement by detection limit <= 0.005 miu/l (units/volume)2019-08-24 05:19:00* Test Item Value Reference Range Interpretation Comments Thyroid Stimulating Hormone (TSH) (test code = 92658-0) 2.340 0.350-4.940 [facility] TexasBlood leukocytes automated count (number/volume)2019-08-22 05:00:00* Test Item Value Reference Range Interpretation Comments White Blood Count (test code = 6690-2) 7.79 4.8-10.8 [facility]Bl[facility] erythrocytes automated count (number/volume)2019-08-22 05:00:00* Test Item Value Reference Range Interpretation Comments Red Blood Count (test code = 789-8) 4.02 3.6-5.1 [facility] TexasBlood hemoglobin measurement (moles/volume)2019-08-22 05:00:00* Test Item Value Reference Range Interpretation Comments Hemoglobin (test code = 32326-4) 12.4 12.0-16.0 [facility] TexasAutomated blood hematocrit (volume fraction)2019-08-22 05:00:00* Test Item Value Reference Range Interpretation Comments Hematocrit (test code = 4544-3) 38.1 34.2-44.1 [facility] TexasAutomated erythrocyte mean corpuscular jizxpp3515-37-68 05:00:00* Test Item Value Reference Range Interpretation Comments Mean Corpuscular Volume (test code = 787-2) 94.8 81-99 [facility] TexasAutomated erythrocyte mean corpuscular hemoglobin (mass per erythrocyte)2019-08-22 05:00:00* Test Item Value Reference Range Interpretation Comments Mean Corpuscular Hemoglobin (test code = 785-6) 30.8 28-32 [facility] TexasAutomated erythrocyte mean corpuscular hemoglobin concentration measurement (mass/volume)2019-08-22 05:00:00* Test Item Value Reference Range Interpretation Comments Mean Corpuscular Hemoglobin Concent (test code = 786-4) 32.5 31-35 [facility] TexasRDW HobMm-Jst6417-52-03 05:00:00* Test Item Value Reference Range Interpretation Comments Red Cell Distribution Width (test code = 50802-7) 12.2 11.7 -14.4 [facility] TexasAutomated blood platelet count (count/volume)2019-08-22 05:00:00* Test Item Value Reference Range Interpretation Comments Platelet Count (test code = 777-3) 232 140-360 [facility] TexasAutomated blood segmented neutrophil count as percentage of total zewjcwhhyo0601-25-40 05:00:00* Test Item Value Reference Range Interpretation Comments Neutrophils (%) (Auto) (test code = 96818-8) 51.1 38.7-80.0 [facility] TexasAutomated blood lymphocyte count as percentage ot total gjowycdsth1977-62-38 05:00:00* Test Item Value Reference Range Interpretation Comments Lymphocytes (%) (Auto) (test code = 736-9) 35.8 18.0-39.1 [facility] TexasAutomated blood monocyte count as percentage of total uynmbireqp1770-40-03 05:00:00* Test Item Value Reference Range Interpretation Comments Monocytes (%) (Auto) (test code = 5905-5) 6.8 4.4-11.3 [facility] TexasAutomated blood eosinophil count as percentage of total rfsfkleeml3655-32-00 05:00:00* Test Item Value Reference Range Interpretation Comments Eosinophils (%) (Auto) (test code = 713-8) 5.4 0.0-6.0 [facility] TexasAutomated blood basophil count as percentage of total yrrkqnkwqw1962-90-30 05:00:00* Test Item Value Reference Range Interpretation Comments Basophils (%) (Auto) (test code = 706-2) 0.6 0.0-1.0 [facility] TexasFluoroscopic procedure less than one hour nvmzqzlq5997-82-72 05:00:00* Test Item Value Reference Range Interpretation Comments IM GRANULOCYTES % (test code = IM GRANULOCYTES %) 0.3 0.0- 1.0 [facility] TexasAutomated blood neutrophil count 2019-08-22 05:00:00* Test Item Value Reference Range Interpretation Comments Neutrophils # (Auto) (test code = 751-8) 4.0 2.1-6.9 [facility] TexasBlood lymphocytes count (number/volume) 2019-08-22 05:00:00* Test Item Value Reference Range Interpretation Comments Lymphocytes # (Auto) (test code = 80102-2) 2.8 1.0-3.2 [facility] TexasBlood monocytes automated count (number/volume)2019-08-22 05:00:00* Test Item Value Reference Range Interpretation Comments Monocytes # (Auto) (test code = 742-7) 0.5 0.2-0.8 [facility] TexasAutomated blood eosinophil count 2019-08-22 05:00:00* Test Item Value Reference Range Interpretation Comments Eosinophils # (Auto) (test code = 711-2) 0.4 0.0-0.4 [facility] TexasAutomated blood basophil count (count/volume)2019-08-22 05:00:00* Test Item Value Reference Range Interpretation Comments Basophils # (Auto) (test code = 704-7) 0.1 0.0-0.1 [facility] TexasFluoroscopic procedure less than one hour hgvmmpir1885-26-37 05:00:00* Test Item Value Reference Range Interpretation Comments Absolute Immature Granulocyte (auto (sidney t code = Absolute Immature Granulocyte (auto) 0.02 0-0.1 [facility] plasma sodium measurement (moles/volume)2019-08-22 05:00:00* Test Item Value Reference Range Interpretation Comments Sodium Level (test code = 2951-2) 139 136-145 [facility] plasma potassium measurement (moles/volume)2019-08-22 05:00:00* Test Item Value Reference Range Interpretation Comments Potassium Level (test code = 2823-3) 3.9 3.5-5.1 [facility] chloride measurement (moles/volume)2019-08-22 05:00:00* Test Item Value Reference Range Interpretation Comments Chloride Level (test code = 2075-0) 103 98-107 [facility] carbon dioxide, total measurement (moles/volume)2019-08-22 05:00:00* Test Item Value Reference Range Interpretation Comments Carbon Dioxide Level (test code = 2028-9) 30 22-29 [facility] anion lbf7743-35-71 05:00:00* Test Item Value Reference Range Interpretation Comments Anion Gap (test code = 36692-8) 9.9 8-16 [facility] urea nitrogen measurement (mass/volume)2019-08-22 05:00:00* Test Item Value Reference Range Interpretation Comments Blood Urea Nitrogen (test code = 3094-0) 13 7-26 [facility] creatinine measurement (mass/volume)2019-08-22 05:00:00* Test Item Value Reference Range Interpretation Comments Creatinine (test code = 2160-0) 0.79 0.57-1.11 [facility] urea nitrogen/creatinine mass ehqek7796-86-59 05:00:00* Test Item Value Reference Range Interpretation Comments BUN/Creatinine Ratio (test code = 3097-3) 16 6-25 [facility] TexasEstimated glomerular filtration rate (GFR) ospyigciopmlz6846-84-07 05:00:00* Test Item Value Reference Range Interpretation Comments Estimat Glomerular Filtration Rate (test code = 283601801) > 60 >60 Ranges were taken from the National Kidney Disease Education Program and the [facility] literature.Reference ranges:60 or greater: Sizhie35-92 ( for 3 consecutive months): Chronic kidney disease 15 or less: Kidney failureBaptist Hospitals of Southeast TexasGlucose iuonhpfjfzq0287-67-92 05:00:00* Test Item Value Reference Range Interpretation Comments Glucose Level (test code = WZT7097) 99 74-118 [facility] plasma calcium measurement (mass/volume)2019-08-22 05:00:00* Test Item Value Reference Range Interpretation Comments Calcium Level (test code = 11877-5) 8.3 8.4-10.2 [facility] total bilirubin measurement (mass/volume)2019-08-22 05:00:00* Test Item Value Reference Range Interpretation Comments Total Bilirubin (test code = 1975-2) 0.2 0.2-1.2 [facility] TexasFluoroscopic procedure less than one hour qjmxglnv7310-52-34 05:00:00* Test Item Value Reference Range Interpretation Comments Aspartate Amino Transf (AST/SGOT) (test code = Aspartate Amino Transf (AST/SGOT)) 19 5-34 [facility] alanine aminotransferase measurement (enzymatic activity/volume)2019-08-22 05:00:00* Test Item Value Reference Range Interpretation Comments Alanine Aminotransferase (ALT/SGPT) (test code = 1742-6) 25 0-55 [facility] protein measurement (mass/volume)2019-08-22 05:00:00* Test Item Value Reference Range Interpretation Comments Total Protein (test code = 2885-2) 6.9 6.5-8.1 [facility] albumin measurement (mass/volume)2019-08-22 05:00:00* Test Item Value Reference Range Interpretation Comments Albumin (test code = 1751-7) 3.1 3.5-5.0 [facility] TexasPlasma globulin measurement (mass/volume) 2019-08-22 05:00:00* Test Item Value Reference Range Interpretation Comments Globulin (test code = 39189-7) 3.8 2.3-3.5 [facility] albumin/globulin mass jahfy3653-22-79 05:00:00* Test Item Value Reference Range Interpretation Comments Albumin/Globulin Ratio (test code = 1759-0) 0.8 0.8-2.0 [facility] plasma alkaline phosphatase measurement (enzymatic activity/volume)2019-08-22 05:00:00* Test Item Value Reference Range Interpretation Comments Alkaline Phosphatase (test code = 6768-6) 86 40-150 [facility] plasma creatine kinase measurement (enzymatic activity/volume)2019-08-19 13:00:00* Test Item Value Reference Range Interpretation Comments Creatine Kinase (test code = 2157-6) 39 29-168 [facility] plasma creatine kinase MB measurement (mass/volume)2019-08-19 13:00:00* Test Item Value Reference Range Interpretation Comments Creatine Kinase MB (test code = 03352-8) 0.70 0-5.0 [facility] TexasTroponin I measurement by highly sensitive enzyme bdsjrdpbdvg6048-71-18 13:00:00* Test Item Value Reference Range Interpretation Comments Troponin I (test code = 79396-1) < 0.001 0-0.300 [facility] creatine kinase measurement (enzymatic activity/volume)2019-08-19 13:00:00* Test Item Value Reference Range Interpretation Comments Creatine Kinase (test code = 2157-6) 39 29-168 [facility] plasma creatine kinase MB measurement (mass/volume)2019-08-19 13:00:00* Test Item Value Reference Range Interpretation Comments Creatine Kinase MB (test code = 27309-0) 0.70 0-5.0 [facility] TexasTroponin I measurement by highly sensitive enzyme ytkhfcdnhxg8228-62-23 13:00:00* Test Item Value Reference Range Interpretation Comments Troponin I (test code = 03883-5) < 0.001 0-0.300 [facility] triglyceride measurement (mass/volume)2019-08-19 04:51:00* Test Item Value Reference Range Interpretation Comments Triglycerides Level (test code = 2571-8) 165 0-149 [facility] cholesterol measurement (mass/volume)2019-08-19 04:51:00* Test Item Value Reference Range Interpretation Comments Cholesterol Level (test code = 2093-3) 159 0-199 Less than 200 mg/dL Low Rezo831 - 239 mg/dL Borderline Ytpf383 m g/dl and greater High Risk [facility] cholesterol in LDL measurement (mass/volume) 2019-08-19 04:51:00* Test Item Value Reference Range Interpretation Comments LDL Cholesterol (test code = 2089-1) 98 60-130 [facility] cholesterol in HDL measurement (mass/volume)2019-08-19 04:51:00* Test Item Value Reference Range Interpretation Comments HDL Cholesterol (test code = 2085-9) 28 40-60 [facility] total cholesterol/cholesterol in HDL mass viqwm2359-51-14 04:51:00* Test Item Value Reference Range Interpretation Comments Cholesterol/HDL Ratio (test code = 9830-1) 5.7 3.0-3.6 [facility] triglyceride measurement (mass/volume)2019-08-19 04:51:00* Test Item Value Reference Range Interpretation Comments Triglycerides Level (test code = 2571-8) 165 0-149 [facility] cholesterol measurement (mass/volume)2019-08-19 04:51:00* Test Item Value Reference Range Interpretation Comments Cholesterol Level (test code = 2093-3) 159 0-199 Less than 200 mg/dL Low Intj282 - 239 mg/dL Borderline Jzpy617 m g/dl and greater High Risk [facility] cholesterol in LDL measurement (mass/volume) 2019-08-19 04:51:00* Test Item Value Reference Range Interpretation Comments LDL Cholesterol (test code = 2089-1) 98 60-130 [facility] cholesterol in HDL measurement (mass/volume)2019-08-19 04:51:00* Test Item Value Reference Range Interpretation Comments HDL Cholesterol (test code = 2085-9) 28 40-60 [facility] total cholesterol/cholesterol in HDL mass lqtas9087-39-12 04:51:00* Test Item Value Reference Range Interpretation Comments Cholesterol/HDL Ratio (test code = 9830-1) 5.7 3.0-3.6 [facility] TexasFluoroscopic procedure less than one hour sppapzlo0252-13-88 18:02:00* Test Item Value Reference Range Interpretation [...] under 564(g) of the ACT.[facility] [place], [place] [address] [place], [place] [address]Fluoroscopic procedure less than one hour duration 2019-08-18 [...] under 564(g) of the ACT.[facility] [place] [address]VKFBaptist Hospitals of Southeast TexasCT ABDOMEN/PELVIS A3177-41-41 17:58:00 [facility] [address] [address] Patient Name: JESUS ASCENCIO MR #: [id number] : 1955 Age/Sex: 64/F Req #: [id number] Adm Physician: Ordered by: TONYA ALANIS MD Report #: [id number] Location: ER Room/Bed: Procedure: [id number] CT/CT ABDOMEN/PELV IS W Exam Date: 08/18/19 Exam Time: 1709 REPORT STATUS: Signed EXAM: CT Abdomen and Pelvis WITH contrast INDICATION: Abdominal pain, nausea and vomiting. COMP ARISON: 01/21/2019. TECHNIQUE: Abdomen and pelvis were scanned utilizing a [employer] helical scanner from the lung base to [...] TONYA ALANIS MD CHEST SINGLE (PORTABLE)2019-08-18 17:54:00 [place] [address] Patient Name: JESUS ASCENCIO MR #: [id number] : 1955 Age/Sex: 64/F Req #: [id number] Adm Physician: Ordered by: TONYA ALANIS MD Report #: [id number] Location: ER Room/Bed: Procedure: [id number] DX/CHEST SINGLE (P ORTABLE) Exam Date: 08/18/19 [...] COPY TO: TONYA ALANIS MD CT BRAIN GG6778-69-95 17:39:00 [place] [address] Patient Name: JESUS ASCENCIO MR #: [id number] : 1955 Age/Sex: 64/F Req #: [id number] Adm Physician: Ordered by: TONYA ALANIS MD Report #: [id number] Location: ER Room/Bed: Procedure: [id number] CT/CT BRAIN WO Ex am Date: 08/18/19 Exam Time: 1709 REPORT STATUS: Signed History:Headaches Compar sarha studies: None Technique: Axial images were obtained [...] (aPTT) in platelet poor plasma by coagulation nstby8558-78-39 15:16:00* Test Item Value Reference Range Interpretation Comments Activated Partial Thromboplast Time (test code = 36314-2) 28.1 23.8-35.5 [facility] TexasUrine color moioxzdihsyqq7629-96-33 15:16:00* Test Item Value Reference Range Interpretation Comments Urine Color (test code = 5778-6) YELLOW YELLOW [facility] TexasUrine kgvxgql8174-45-91 15:16:00* Test Item Value Reference Range Interpretation Comments Urine Clarity (test code = 17751-0) SL CLOUDY CLEAR [facility] gravity of Urine by Test strip 2019-08-18 15:16:00* Test Item Value Reference Range Interpretation Comments Urine Specific [place] (test code = 5811-5) 1.030 1.010-1.02 5 [facility] TexasUrine pH measurement by automated test hamjz8273-99-00 15:16:00* Test Item Value Reference Range Interpretation Comments Urine pH (test code = 05315-2) 5.5 5-7 [facility] TexasUrine leukocyte esterase detection by fivlkpjh0413-94-88 15:16:00* Test Item Value Reference Range Interpretation Comments Urine Leukocyte Esterase (test code = 5799-2) NEGATIVE NEGATIVE [facility] TexasUrine nitrite qxmznkwes3931-71-72 15:16:00* Test Item Value Reference Range Interpretation Comments Urine Nitrite (test code = 28870-3) NEGATIVE NEGATIVE [facility] TexasUrine protein measurement by test strip (mass/volume)2019-08-18 15:16:00* Test Item Value Reference Range Interpretation Comments Urine Protein (test code = 5804-0) NEGATIVE NEGATIVE [facility] TexasUrine glucose pnwyaeyxv6082-60-72 15:16:00* Test Item Value Reference Range Interpretation Comments Urine Glucose (UA) (test code = 2349-9) 2+ NEGATIVE [facility] TexasUrine ketones detection by automated test ywvgl3399-37-23 15:16:00* Test Item Value Reference Range Interpretation Comments Urine Ketones (test code = 14926-2) NEGATIVE NEGATIVE [facility] TexasUrine urobilinogen measurement by test strip (mass/volume)2019-08-18 15:16:00* Test Item Value Reference Range Interpretation Comments Urine Urobilinogen (test code = 67545-2) 0.2 0.2-1 [facility] TexasUrine total bilirubin measurement (mass/volume)2019-08-18 15:16:00* Test Item Value Reference Range Interpretation Comments Urine Bilirubin (test code = 1978-6) NEGATIVE NEGATIVE [facility] TexasUrine erythrocytes tuopyvhrp3518-84-84 15:16:00* Test Item Value Reference Range Interpretation Comments Urine Blood (test code = 77514-6) MODERATE NEGATIVE [facility] TexasAutomated urine sediment leukocyte count by microscopy (number/high power field)2019-08-18 15:16:00* Test Item Value Reference Range Interpretation Comments Urine WBC (test code = 5821-4) NONE 0-5 [facility] TexasErythrocytes detection in urine sediment by light cggmrtcnlf9759-94-15 15:16:00* Test Item Value Reference Range Interpretation Comments Urine RBC (test code = 85174-9) 6-10 0-5 [facility] TexasBacteria detection in urine sediment by light fqlilzmlwe5059-22-78 15:16:00* Test Item Value Reference Range Interpretation Comments Urine Bacteria (test code = 24317-6) FEW NONE [facility] TexasEpithelial cells detection in urine sediment by light gdjpdmnqsi5511-29-59 15:16:00* Test Item Value Reference Range Interpretation Comments Urine Epithelial Cells (test code = 71577-3) MANY NONE [facility] plasma magnesium measurement (mass/volume)2019-08-18 15:16:00* Test Item Value Reference Range Interpretation Comments Magnesium Level (test code = 67764-7) 1.9 1.3-2.1 [facility] plasma amylase measurement (enzymatic activity/volume)2019-08-18 15:16:00* Test Item Value Reference Range Interpretation Comments Amylase Level (test code = 1798-8) 28 25-125 [facility] lipase measurement (enzymatic activity/volume)2019-08-18 15:16:00* Test Item Value Reference Range Interpretation Comments Lipase (test code = 3040-3) 20 8-78 [facility] TexasActivated partial thromboplastin time (aPTT) in platelet poor plasma by coagulation rlwuo0102-14-51 15:16:00* Test Item Value Reference Range Interpretation Comments Activated Partial Thromboplast Time (test code = 90706-5) 28.1 23.8-35.5 [facility] TexasUrine color oxfkmzlzluszv7283-53-76 15:16:00* Test Item Value Reference Range Interpretation Comments Urine Color (test code = 5778-6) YELLOW YELLOW [facility] TexasUrine nbwzwao3921-21-16 15:16:00* Test Item Value Reference Range Interpretation Comments Urine Clarity (test code = 42106-1) SL CLOUDY CLEAR [facility] gravity of Urine by Test strip 2019-08-18 15:16:00* Test Item Value Reference Range Interpretation Comments Urine Specific [place] (test code = 5811-5) 1.030 1.010-1.02 5 [facility] TexasUrine pH measurement by automated test cddxh3757-99-04 15:16:00* Test Item Value Reference Range Interpretation Comments Urine pH (test code = 84992-9) 5.5 5-7 [facility] TexasUrine leukocyte esterase detection by glbagpia9044-56-17 15:16:00* Test Item Value Reference Range Interpretation Comments Urine Leukocyte Esterase (test code = 5799-2) NEGATIVE NEGATIVE [facility] TexasUrine nitrite mjdhtldxn3838-13-72 15:16:00* Test Item Value Reference Range Interpretation Comments Urine Nitrite (test code = 62473-7) NEGATIVE NEGATIVE [facility] TexasUrine protein measurement by test strip (mass/volume)2019-08-18 15:16:00* Test Item Value Reference Range Interpretation Comments Urine Protein (test code = 5804-0) NEGATIVE NEGATIVE [facility] TexasUrine glucose mtqyvpgay8098-00-23 15:16:00* Test Item Value Reference Range Interpretation Comments Urine Glucose (UA) (test code = 2349-9) 2+ NEGATIVE [facility] TexasUrine ketones detection by automated test hbrzr1177-29-29 15:16:00* Test Item Value Reference Range Interpretation Comments Urine Ketones (test code = 85343-3) NEGATIVE NEGATIVE [facility] TexasUrine urobilinogen measurement by test strip (mass/volume)2019-08-18 15:16:00* Test Item Value Reference Range Interpretation Comments Urine Urobilinogen (test code = 38226-7) 0.2 0.2-1 [facility] TexasUrine total bilirubin measurement (mass/volume)2019-08-18 15:16:00* Test Item Value Reference Range Interpretation Comments Urine Bilirubin (test code = 1978-6) NEGATIVE NEGATIVE [facility] TexasUrine erythrocytes fgenlixuz6365-53-41 15:16:00* Test Item Value Reference Range Interpretation Comments Urine Blood (test code = 26998-5) MODERATE NEGATIVE [facility] TexasAutomated urine sediment leukocyte count by microscopy (number/high power field)2019-08-18 15:16:00* Test Item Value Reference Range Interpretation Comments Urine WBC (test code = 5821-4) NONE 0-5 [facility] TexasErythrocytes detection in urine sediment by light mpiznuufxq5371-10-25 15:16:00* Test Item Value Reference Range Interpretation Comments Urine RBC (test code = 45629-6) 6-10 0-5 [facility] TexasBacteria detection in urine sediment by light rrzhadahyq0049-88-20 15:16:00* Test Item Value Reference Range Interpretation Comments Urine Bacteria (test code = 01171-6) FEW NONE [facility] TexasEpithelial cells detection in urine sediment by light ecnxroflyu0785-29-75 15:16:00* Test Item Value Reference Range Interpretation Comments Urine Epithelial Cells (test code = 34533-5) MANY NONE [facility] plasma magnesium measurement (mass/volume)2019-08-18 15:16:00* Test Item Value Reference Range Interpretation Comments Magnesium Level (test code = 27658-5) 1.9 1.3-2.1 [facility] plasma amylase measurement (enzymatic activity/volume)2019-08-18 15:16:00* Test Item Value Reference Range Interpretation Comments Amylase Level (test code = 1798-8) 28 25-125 [facility] plasma lipase measurement (enzymatic activity/volume)2019-08-18 15:16:00* Test Item Value Reference Range Interpretation Comments Lipase (test code = 3040-3) 20 8-78 [facility] TexasCT CERVICAL SP[facility] CI4659-15-86 23:44:00 [facility] [place] [address] Patient Name: JESUS ASCENCIO MR #: [id number] : 1955 Age/Sex: 64/F Req #: [id number] Adm Physician: Ordered by: ERICKA UNGER MD Report #: [id number] Location: ER Room/Bed: Procedure: [id number] CT/CT CERVICAL SPINE WO Exam Date: Exam [...] LUPE PACHECO MD on 06/15/192348 Transcribed By: EDWIN CHO on 06/15/192348 COPY TO: ERICKA UNGER MD RIBS UNILAT W/ILI8199-77-51 23:38:00 [place] [address] Patient Name: JESUS ASCENCIO MR #: [id number] : 1955 Age/Sex: 64/F Req #: [id number] Adm Physician: Ordered by: ERICKA UNGER MD Report #: [id number] Location: ER Room/Bed: Procedure: [id number] DX/RIBS UNILAT W/CXR Exam Date: Exam Time: [...] MD 42 Transcribe d By: DARION on 06/15/192342 COPY TO: ERICKA UNGER MD CT BRAIN KT8702-76-53 23:33:00 [place] [address] [place] [address] Patient Name: JESUS ASCENCIO MR #: [id number] : 1955 Age/Sex: 64/F Req #: [id number] Adm Physician: Ordered by: ERICKA UNGER MD Report #: [id number] Location: ER Room/Bed: Procedure: [id number] CT/CT BRAIN WO Exam Date: Exam Time: [...] UNGER MD WRIST COMPLETE LEFT 2019-06-15 23:32:00 [place] [address] Patient Name: JESUS ASCENCIO MR #: [id number] : 1955 Age/Sex: 64/F Req #: [id number] Adm Physician: Ordered by: ERICKA UNGER MD Report #: [id number] Location: ER Room/Bed: Procedure: [id number] DX/WRIST COMPLETE LEFT Exam Date: Exam Time: [...] TO: ERICKA UNGER MD KNEE LEFT THREE FLQDR7818-66-95 23:32:00 [place] [address] Patient Name: JESUS ASCENCIO MR #: [id number] : 1955 Age/Sex: 64/F Req #: [id number] Adm Physician: Ordered by: ERICKA UNGER MD Report #: [id number] Location: ER Room/Bed: Procedure: [id number] DX/KNEE LEFT THREE VIEWS Exam Date: Exam [...] PM Di ctated By: RAFAELA PRO MD 37 Transcribed By: DARION on 06/15/19 3187 COPY TO: ERICKA UNGER MD SHOULDER LEFT QOXDTXYN2314-61-15 23:32:00 [place] [address] Patient Name: JESUS ASCENCIO MR #: [id number] : 1955 Age/Sex: 64/F Req #: [id number] Adm Physician: Ordered by: ERICKA UNGER MD Report #: [id number] Location: ER Room/Bed: Procedure: [id number] DX/SHOULDER LEFT COMPLETE Exam Date: Exam Time: [...] 2 337 Transcribed By: DARION on 06/15/19 5702 COPY TO: CARRI UNGER MD VCKUPL0612-77-26 16:48:00* Test Item Value Reference Range Interpretation Comments GLUBED (test code = GLUBED) 162 mg/dL 74-106 H Performed by certified steam oven operator at [facility] SSWGES0843-29-94 12:32:00* Test Item Value Reference Range Interpretation Comments GLUBED (test code = GLUBED) 120 mg/dL 74-106 H Performed by certified steam oven operator at [facility] BASIC METABOLIC JUDTW0808-83-46 08:09:00* Test Item Value Reference Range Interpretation [...] CA) 8.3 mg/dL 8.5-10.1 L BASIC METABOLIC WNKGP9964-75-70 07:50:00* Test Item Value Reference Range Interpretation [...] CALCIUM (test code = CA) mg/dL 8.5-10.1 MLSYBR5931-60-38 07:47:00* Test Item Value Reference Range Interpretation Comments GLUBED (test code = GLUBED) 138 mg/dL 74-106 H Performed by certified steam oven operator at [facility] CBC W/AUTO FKBF9862-08-21 07:23:00* Test Item Value Reference Range Interpretation [...] code = NRBC#) 0.00 K/mm3 0.0-0.1 N ZPBPOT5937-05-00 20:41:00* Test Item Value Reference Range Interpretation Comments GLUBED (test code = GLUBED) 201 mg/dL 74-106 H Performed by certified steam oven operator at [facility] POIOVYMR-D2686-89-03 08:55:00* Test Item Value Reference Range Interpretation Comments TROPONIN-I (test code = TROPI) <0.015 ng/mL 0-0.045 N COMMENTS TO ADMISSIONS NURSE: COLLECT 3 HOURS AFTER PREVIOUS CHSFYCFNDYWVEG-H2296-98-03 06:24:00* Test Item Value Reference Range Interpretation Comments TROPONIN-I (test code = TROPI) <0.015 ng/mL 0-0.045 N COMMENTS TO ADMISSIONS NURSE: COLLECT 3 HOURS AFTER PREVIOUS CZZBKGPSMRTYW7794-11-52 05:50:00* Test Item Value Reference Range Interpretation Comments CALCIUM (test code = CA) 8.9 mg/dL 8.5-10.1 N GPQXDHRUGN4681-46-98 05:50:00* Test Item Value Reference Range Interpretation Comments PHOSPHORUS (test code = PHOS) 3.8 mg/dL 2.5-4.9 N BRCFSBNRS0114-43-02 05:50:00* Test Item Value Reference Range Interpretation Comments MAGNESIUM (test code = MAG) 2.3 mg/dL 1.8-2.4 N THYROID STIMULATING GTOIAKB7904-13-21 05:50:00* Test Item Value Reference Range Interpretation Comments THYROID STIMULATING HORMONE (test code = TSH) 4.120 uIU/mL 0.36-3.7 4 H TSH REFERENCE RANGES: EUTHYROID: 0.35 - 4.3 mIU/mL HYPO : > 5.5 mIU/mL HYPER : < 0.35 mIU/mL B-TYPE NATRIURETIC [id number] 05:43:00* Test Item Value Reference Range Interpretation Comments B-TYPE NATRIURETIC PEPTIDE (test code = BNP) 8.3 pg/mL 0-100 N [id number] 05:37:00* Test Item Value Reference Range Interpretation Comments CALCIUM (test code = CA) 8.9 mg/dL 8.5-10.1 N XTQMCLGUZG1574-59-67 05:37:00* Test Item Value Reference Range Interpretation Comments PHOSPHORUS (test code = PHOS) mg/dL 2.5-4.9 ICWCXTRFN2793-83-45 05:37:00* Test Item Value Reference Range Interpretation Comments MAGNESIUM (test code = MAG) 2.3 mg/dL 1.8-2.4 N THYROID STIMULATING [id number] 05:37:00* Test Item Value Reference Range Interpretation Comments THYROID STIMULATING HORMONE (test code = TSH) uIU/mL 0.36-3.7 4 - CT ABD PELVIS W/IKDP9565-34-68 23:12:00 Name: SONUJESUS [facility] : 1955 Age/S: 64 / F [address] [facility] [address] Unit #: [id number] Loc: [place] [address] Phys: Romario Balderas MD Acct: [id number] Dis Date: Status: REG ER PHONE #: [phone] Exam Date: 04/21/20192299 FAX #: [phone] Reason: LUQ pain EXAMS: CPT CODE: [id number] CT ABD PELVIS W/CONT 44953 AFTER HOURS SERVICE ON: 04/21/2019 11:10 PM [...] Reported and signed by: Natasha Bermudez M.D. [facility] 1 Signed Report (CONTINUED) Name: JESUS ASCENCIO [facility] : [birth year] Age/S: 64 / F [address] [facility] Unit #: [id number] Loc: [place] [address] Phys: Romario Balderas MD Acct: [id number] Dis Date: Status: REG ER PHONE #: [phone] Exam Date: 04/21/2019 2300 FAX #: [phone] Reason: LUQ pain EXAMS: CPT CODE: [id number] CT ABD PELVIS W/CONT 08604 <Continued> CC: Romario Balderas MD Technologist:PAULIE MOISE RT(R),CT CTDI: DLP: Trnscb Date/Time: 04/21/2019 (2312) [email or web address] Orig Print D/T: S: 04/21/2019 (9393) PAGE 2 Signed Report - CTA CHEST FOR EV5531-02-00 23:10:00 Name: JESUS ASCENCIO [facility] : 1955 Age/S: 64 / F [address] [facility] Unit #: [id number] Loc: [place] [address] Phys: Romario Balderas MD Acct: [id number] Dis Date: Status: REG ER PHONE #: [phone] Exam Date: 04/21/2019 2300 FAX #: [phone] Reason: chest pain r/o PE EXAMS: CPT CODE: [id number] [place] [address] AFTER HOURS SERVICE ON: 04/21/2019 11:06 PM [...] 1 Signed Report (CONTINUED) [facility] 1955 Age/S: 64 / F [address] Unit #: [id number] Loc: [place] [address] Phys: Romario Balderas MD Acct: [id number] Dis Date: S tatus: REG ER PHONE #: [phone] Exam Da te: 04/21/20192299 FAX #: [phone] Reason: chest pain r/o PE EXAMS: CPT CODE: [id number] [place] [address] <Continued> CC: Romario Balderas MD Technologist:PAULIE MOISE RT(R),CT CTDI: DLP: Trnscb Date/Time: 04/21/2019 (2309) [email or web address] Orig Print D/T: S: 04/21/2019 (2312) PAGE 2 Signed Report - XR CHEST 1 [id number] 23:03:00 Name: JESUS ASCENCIO [facility] : 1955 Age/S:64 /F [address] Unit#:[id number] Loc: [place] [address] Phys: Romario Balderas MD Dis Date: PHONE #: [phone] Status: REG ER FAX #: [phone] Exam Date: 04/21/2019 Reason: chest pain EXAMS: CPT CODE: [id number] XR CHEST 1 V 30610 AFTER HOURS SERVICE ON: 04/21/2019 11:02 PM [...] (2302) [email or web address] Orig Print D/T: S: 04/21/2019 (2305) PAGE 1 Signed Report PROTHROMBIN [id number] 22:10:00 * Test Item Value Reference Range [...] (2.5-3.5) IS PATIENT ON ANTICOAGULANTS? NTHROMBOPLASTIN TIME [id number] 22:10:00* Test Item Value Reference Range Interpretation Comments THROMBOPLASTIN TIME PARTIAL (test code = PTT) 27.4 seconds 25.5-34. 3 N Therapeutic Range for patients on Heparin Therapy is 2 to2.5 times their baseline PTT level. IS PATIENT ON ANTICOAGULANTS? NCOMPREHENSIVE METABOLIC [id number] 22:09:00 * Test Item Value Reference Range [...] code = ALKP) 89 U/L 38-126 N [id number] 22:09:00* Test Item Value Reference Range Interpretation Comments LIPASE (test code = LIP) 96 U/L 128-270 L FYZMRDZH-Z8889-25-02 22:09:00* Test Item Value Reference Range Interpretation Comments TROPONIN-I (test code = TROPI) <0.015 ng/mL 0.00-0.056 N COMPREHENSIVE METABOLIC [id number] 22:03:00* Test Item Value Reference Range Interpretation [...] TOTAL (test code = ALKP) IUnit/L 45-117 [id number] 22:03:00* Test Item Value Reference Range Interpretation Comments LIPASE (test code = LIP) Unit/L 144-286 [id number]-[id number] 22:03:00* Test Item Value Reference Range Interpretation Comments TROPONIN-I (test code = TROPI) ng/mL 0-0.045 CBC W/AUTO [id number] 21:51:00* Test Item Value Reference Range Interpretation [...] REQUIRED (test code = MDIFF) NO PROTHROMBIN [id number] 08:39:00* Test Item Value Reference Range Interpretation [...] STOPPED ANTICOAGULANTS ABOUT 3 WEEKS AGOCOMMENTS TO ADMISSIONS NURSE: IN DSU ASPIRINTHROMBOPLASTIN TIME UEADKOZ3236-44-59 08:39:00* Test Item Value Reference Range Interpretation Comments THROMBOPLASTIN TIME PARTIAL (test code = PTT) 28.9 seconds 25.0-36. 5 N IS PATIENT ON ANTICOAGULANTS? YLIST ANTICOAGULANTS COUMADIN ELIQUISSPECI MEN COMMENTS: STOPPED ANTICOAGULANTS ABOUT 3 WEEKS AGOCOMMENTS TO ADMISSIONS NURSE: IN DSU VYPFCDPARSAZU8256-21-05 08:36:00* Test Item Value Reference Range Interpretation Comments GLUBED (test code = GLUBED) 127 mg/dL 74-106 H Performed by certified steam oven operator at [facility] BASIC METABOLIC RTLQE6239-02-60 08:25:00* Test Item Value Reference Range Interpretation [...] CA) 9.0 mg/dL 8.5-10.1 N SEE N [place] ON H60CBC W/AUTO [id number] 08:10:00* Test Item Value Reference Range Interpretation [...] N MANUAL DIFF REQUIRED (test code = LINDA) OPAL VALLES,HKXSUK8732-74-00 11:03:00 RUN DATE: 02/25/19 [facility] PAGE 1 RUN TIME: 1103 Specimen Inqui ry RUN USER: INTERFACE PATIENT: JESUS ASCENCIO ACCT #: [id number] LOC: AprilG U #: [id number] AGE/SX: 63/F ROOM: RE02/18/19[facility] DR: Jordan Lehman MD : 57 BED: DIS: STATUS: [facility] TLOC: SPEC #: [id number] RECD: 02/20/19 STATUS: DANIELLA MIRANDA #: [id number] [facility]: 02/18/19-[address] [facility] [address]: Jordan Lehman MD ENTERED: 02/20/19 SP TYPE: BX DUODEN OTHR DR: Fernanda Chatterjee MD ORDERED: GROSS COPIES TO: Elisha Chatterjee MD [address] [place] [address] Jordan Lehman MD [address] [facility] [place] [address] PROCEDURES: GROSS (02/24/19-1 228) TISSUES: 1. DUODENUM, [...] CONTINUED ON NEXT PAGE RUN DATE: 02/25/19 [facility] PAGE 2 RUN TIME: 1103 Specimen Inquiry RUN USER: INTERFACE -- SPEC #: [id number] PATIENT: JESUS ASCENCIO #[id number] (Continued) FINAL DIAGNOSIS (Continued) NEGATIVE FOR INTESTINAL METAPLASIA NEGATIVE FOR HELICOBACTER OR GANISMS NEGATIVE FOR MALIGNANCY Sigmoid colon polyp, hot biopsy: HYPERPLASTIC POLYP NEGATIVE FOR MALIGNANCY MILD ARTIFACTUAL D ISTORTION PRESENT RRB/scarlet/sm D 63182x0, 75820 MACROS COPIC The first specimen is received [...] ments measuring 0.2 cm. GROSS PERFORMED AT [facility] [address] [place], [place] [address] (p)[phone] MICROSCOPIC All of the stains, including any contr ols performed, stain appropriately. MICROSCOPIC PERFORMED AT [facility] [address] [place] [address] (P)[phone] CONTINUED ON NEXT PAGE RUN DATE: 02/25/19 [facility] PAGE 3 RUN TIME: 1103 Speci men Inquiry RUN USER: INTERFACE SPEC #: [id number] PATIENT: JESUS ROBERSON #[id number] (Continued) PERFO RMING SITE Diagnosis performed at: [facility] [address] [facility] [place] [address] Signed SIGNATURE ON FILE Luis Sparks MD 02/25/19 1103 END OF REPORT GLUBED 2019-02-18 07:48:00* Test Item Value Reference Range Interpretation Comments GLUBED (test code = GLUBED) 150 mg/dL 74-106 H Performed by certified steam oven operator at [facility] BASIC METABOLIC [id number] 07:24:00* Test Item Value Reference Range Interpretation [...] = CA) 9.0 mg/dL 8.5-10.1 N PROTHROMBIN [id number] 07:22:00* Test Item Value Reference Range Interpretation [...] PATIENT ON ANTICOAGULANTS? YLIST ANTICOAGULANTS COUMADINTHROMBOPLASTIN TIME [id number] 07:22:00* Test Item Value Reference Range Interpretation Comments THROMBOPLASTIN TIME PARTIAL (test code = PTT) 28.9 seconds 25.0-36. 5 N IS PATIENT ON ANTICOAGULANTS? YLIST ANTICOAGULANTS COUMADINBASIC METABOLIC CECRB7844-20-17 07:20:00* Test Item Value Reference Range Interpretation [...] code = CA) mg/dL 8.5-10.1 CBC W/AUTO [id number] 07:08:00* Test Item Value Reference Range Interpretation [...] NRBC#) 0.00 K/mm3 0.0-0.[address] ABDOMEN/PELVIS [id number] 22:10:00 [place] [address] Patient Name: JESUS ASCENCIO MR #: [id number] : 1955 Age/Sex: 63/F Req #: [id number] Adm Physician: Ordered by: ERICKA UNGER MD Report #: [id number] Location: ER Room/Bed: Procedure: [id number] CT/CT ABDOMEN/PELVIS W Exam Date: Exam Time: [...] 01/21/192218 COPY TO: ERICKA UNGER MD Amylase Iargm7729-47-64 21:51:00* Test Item Value Reference Range Interpretation Comments Amylase Level (test code = 1798-8) 33 25-125 [facility]ase2019-12-03 21:51:00* Test Item Value Reference Range Interpretation Comments Lipase (test code = 3040-3) 13 8-78 [facility] Emxqr9061-04-10 21:42:00* Test Item Value Reference Range Interpretation Comments Sodium Level (test code = 2951-2) 138 136-145 [facility]Potassium Rbvpd3401-26-35 21:42:00* Test Item Value Reference Range Interpretation Comments Potassium Level (test code = 2823-3) 3.7 3.5-5.1 [facility] TexasChloride Csptx4910-10-50 21:42:00* Test Item Value Reference Range Interpretation Comments Chloride Level (test code = 2075-0) 105 98-107 [facility] TexasCarbon Dioxide Itkmk4917-25-52 21:42:00* Test Item Value Reference Range Interpretation Comments Carbon Dioxide Level (test code = 2028-9) 23 22-29 [facility] TexasAnion Qik5857-46-12 21:42:00* Test Item Value Reference Range Interpretation Comments Anion Gap (test code = 97241-1) 13.7 8-16 [facility] TexasBlood Urea Zohebmxm3180-59-38 21:42:00* Test Item Value Reference Range Interpretation Comments Blood Urea Nitrogen (test code = 3094-0) 15 7-26 [facility] TexasCreatinine2019-12-03 21:42:00* Test Item Value Reference Range Interpretation Comments Creatinine (test code = 2160-0) 0.78 0.57-1.11 [facility] TexasBUN/Creatinine Dhkrr2415-54-36 21:42:00* Test Item Value Reference Range Interpretation Comments BUN/Creatinine Ratio (test code = 3097-3) 19 6-25 [facility] TexasEstimat Glomerular Filtration Rate 2019-01-21 21:42:00* Test Item Value Reference Range Interpretation Comments Estimat Glomerular Filtration Rate (test code = 747895973) > 60 >60 Ranges were taken from the National Kidney Disease Education Program and the [facility] Kidney Foundation literature.Reference ranges:60 or greater: Hnwlif41-37 ( for 3 consecutive months): Chronic kidney disease 15 or less: Kidney failureBaptist Hospitals of Southeast TexasGlucose Zjfur0342-04-93 21:42:00* Test Item Value Reference Range Interpretation Comments Glucose Level (test code = RJK7690) 137 74-118 H [facility] TexasCalcium Mfchc6043-87-49 21:42:00* Test Item Value Reference Range Interpretation Comments Calcium Level (test code = 79561-8) 9.3 8.4-10.2 [facility] TexasTotal Xzauotbdb2475-94-84 21:42:00* Test Item Value Reference Range Interpretation Comments Total Bilirubin (test code = 1975-2) 0.2 0.2-1.2 [facility] TexasAspartate Amino Transf (AST/SGOT) 2019-01-21 21:42:00* Test Item Value Reference Range Interpretation Comments Aspartate Amino Transf (AST/SGOT) (test code = Aspartate Amino Transf (AST/SGOT)) 14 5-34 [facility] TexasAlanine Aminotransferase (ALT/SGPT) 2019-01-21 21:42:00* Test Item Value Reference Range Interpretation Comments Alanine Aminotransferase (ALT/SGPT) (test code = 1742-6) 12 0-55 [facility] TexasTotal Fsdgfge8519-38-43 21:42:00* Test Item Value Reference Range Interpretation Comments Total Protein (test code = 2885-2) 7.7 6.5-8.1 [facility] TexasAlbumin2019-12-03 21:42:00* Test Item Value Reference Range Interpretation Comments Albumin (test code = 1751-7) 3.7 3.5-5.0 [facility] TexasGlobulin2019-12-03 21:42:00* Test Item Value Reference Range Interpretation Comments Globulin (test code = 32394-6) 4.0 2.3-3.5 H [facility] TexasAlbumin/Globulin Pdspe4579-34-79 21:42:00 * Test Item Value Reference Range Interpretation Comments Albumin/Globulin Ratio (test code = 1759-0) 0.9 0.8-2.0 [facility] TexasAlkaline Ztirkdgecda3229-62-48 21:42:00* Test Item Value Reference Range Interpretation Comments Alkaline Phosphatase (test code = 6768-6) 75 40-150 [facility] TexasWhite Blood Kpsva6135-13-02 21:39:00* Test Item Value Reference Range Interpretation Comments White Blood Count (test code = 6690-2) 10.79 4.8-10.8 [facility] TexasRed Blood Skwzh5482-78-24 21:39:00* Test Item Value Reference Range Interpretation Comments Red Blood Count (test code = 789-8) 4.13 3.6-5.1 [facility] TexasHemoglobin2019-12-03 21:39:00* Test Item Value Reference Range Interpretation Comments Hemoglobin (test code = 63908-6) 12.9 12.0-16.0 [facility] TexasHematocrit2019-12-03 21:39:00* Test Item Value Reference Range Interpretation Comments Hematocrit (test code = 4544-3) 39.0 34.2-44.1 [facility] TexasMean Corpuscular Crstrw0842-87-30 21:39:00* Test Item Value Reference Range Interpretation Comments Mean Corpuscular Volume (test code = 787-2) 94.4 81-99 [facility] TexasMean Corpuscular Tedhvhimia3353-38-41 21:39:00* Test Item Value Reference Range Interpretation Comments Mean Corpuscular Hemoglobin (test code = 785-6) 31.2 28-32 [facility] TexasMean Corpuscular Hemoglobin Concent 2019-01-21 21:39:00* Test Item Value Reference Range Interpretation Comments Mean Corpuscular Hemoglobin Concent (test code = 786-4) 33.1 31-35 [facility] TexasRed Cell Distribution Zrtwz5370-56-24 21:39:00* Test Item Value Reference Range Interpretation Comments Red Cell Distribution Width (test code = 70673-5) 12.4 11.7 -14.4 [facility] TexasPlatelet Yikxf9321-98-72 21:39:00* Test Item Value Reference Range Interpretation Comments Platelet Count (test code = 777-3) 259 140-360 [facility] TexasNeutrophils (%) (Auto)2019-01-21 21:39:00 * Test Item Value Reference Range Interpretation Comments Neutrophils (%) (Auto) (test code = 46030-1) 53.2 38.7-80.0 [facility] TexasLymphocytes (%) (Auto)2019-01-21 21:39:00 * Test Item Value Reference Range Interpretation Comments Lymphocytes (%) (Auto) (test code = 736-9) 36.0 18.0-39.1 [facility] TexasMonocytes (%) (Auto)2019-01-21 21:39:00* Test Item Value Reference Range Interpretation Comments Monocytes (%) (Auto) (test code = 5905-5) 5.7 4.4-11.3 [facility] TexasEosinophils (%) (Auto)2019-01-21 21:39:00 * Test Item Value Reference Range Interpretation Comments Eosinophils (%) (Auto) (test code = 713-8) 4.3 0.0-6.0 [facility] TexasBasophils (%) (Auto)2019-01-21 21:39:00* Test Item Value Reference Range Interpretation Comments Basophils (%) (Auto) (test code = 706-2) 0.6 0.0-1.0 [facility] TexasIM GRANULOCYTES %2019-01-21 21:39:00* Test Item Value Reference Range Interpretation Comments IM GRANULOCYTES % (test code = IM GRANULOCYTES %) 0.2 0.0- 1.0 [facility] TexasNeutrophils # (Auto)2019-01-21 21:39:00* Test Item Value Reference Range Interpretation Comments Neutrophils # (Auto) (test code = 751-8) 5.8 2.1-6.9 [facility] TexasLymphocytes # (Auto)2019-01-21 21:39:00* Test Item Value Reference Range Interpretation Comments Lymphocytes # (Auto) (test code = 40955-3) 3.9 1.0-3.2 H [facility] TexasMonocytes # (Auto)2019-01-21 21:39:00* Test Item Value Reference Range Interpretation Comments Monocytes # (Auto) (test code = 742-7) 0.6 0.2-0.8 [facility] TexasEosinophils # (Auto)2019-01-21 21:39:00* Test Item Value Reference Range Interpretation Comments Eosinophils # (Auto) (test code = 711-2) 0.5 0.0-0.4 H [facility] TexasBasophils # (Auto)2019-01-21 21:39:00* Test Item Value Reference Range Interpretation Comments Basophils # (Auto) (test code = 704-7) 0.1 0.0-0.1 [facility] TexasAbsolute Immature Granulocyte (auto 2019-01-21 21:39:00* Test Item Value Reference Range Interpretation Comments Absolute Immature Granulocyte (auto (sidney t code = Absolute Immature Granulocyte (auto) 0.02 0-0.1 [facility] TexasUrine PUX7148-89-58 21:32:00* Test Item Value Reference Range Interpretation Comments Urine WBC (test code = 5821-4) NONE 0-5 [facility] TexasUrine KJQ5598-95-62 21:32:00* Test Item Value Reference Range Interpretation Comments Urine RBC (test code = 68764-3) 6-10 0-5 H [facility] TexasUrine Idlcfjjf6051-74-67 21:32:00* Test Item Value Reference Range Interpretation Comments Urine Bacteria (test code = 83955-6) FEW NONE [facility] TexasUrine Epithelial Gzvfs8260-75-11 21:32:00 * Test Item Value Reference Range Interpretation Comments Urine Epithelial Cells (test code = 01279-7) NONE NONE [facility] TexasUrine Czelc6337-75-09 21:10:00* Test Item Value Reference Range Interpretation Comments Urine Color (test code = 5778-6) YELLOW YELLOW [facility] TexasUrine Sodjjdu0064-10-85 21:10:00* Test Item Value Reference Range Interpretation Comments Urine Clarity (test code = 77338-9) SL CLOUDY CLEAR [facility] TexasUrine Specific Rdcalhy0935-19-46 21:10:00 * Test Item Value Reference Range Interpretation Comments Urine Specific [place] (test code = 5811-5) 1.020 1.010-1.02 5 [facility] TexasUrine bE8717-20-38 21:10:00* Test Item Value Reference Range Interpretation Comments Urine pH (test code = 48369-8) 6 5-7 [facility] Leukocyte Cksqcyvn8288-33-90 21:10:00* Test Item Value Reference Range Interpretation Comments Urine Leukocyte Esterase (test code = 64443-8) NEGATIVE NEGATIV E [facility] TexasUrine Pulzlcj7753-81-17 21:10:00* Test Item Value Reference Range Interpretation Comments Urine Nitrite (test code = 40266-3) NEGATIVE NEGATIVE [facility] TexasU[facility] Qzsnhwf2466-56-82 21:10:00* Test Item Value Reference Range Interpretation Comments Urine Protein (test code = 49773-8) NEGATIVE NEGATIVE [facility] TexasUrine Glucose (UA)2019-01-21 21:10:00* Test Item Value Reference Range Interpretation Comments Urine Glucose (UA) (test code = 21434-6) 1+ NEGATIVE H [facility] TexasUrine Pxncuyj1888-42-56 21:10:00* Test Item Value Reference Range Interpretation Comments Urine Ketones (test code = 12493-8) NEGATIVE NEGATIVE [facility] TexasU[facility] Mcaanovrydhf1645-58-88 21:10:00* Test Item Value Reference Range Interpretation Comments Urine Urobilinogen (test code = 68387-2) 0.2 0.2-1 [facility] Meumirobj6704-44-80 21:10:00* Test Item Value Reference Range Interpretation Comments Urine Bilirubin (test code = 1977-8) NEGATIVE NEGATIVE [facility] Rkkex0065-96-03 21:10:00* Test Item Value Reference Range Interpretation Comments Urine Blood (test code = 95032-7) MODERATE NEGATIVE [facility]ervilleGLUBED2019-11-15 11:58:00* Test Item Value Reference Range Interpretation Comments GLUBED (test code = GLUBED) 137 mg/dL 74-106 H Performed by certified steam oven operator at [facility] LFSITBTP-T3672-01-15 09:40:00* Test Item Value Reference Range Interpretation Comments TROPONIN-I (test code = TROPI) <0.015 ng/mL 0-0.045 N COMMENTS TO ADMISSIONS NURSE: COLLECT 3 HOURS AFTER PREVIOUS MPFIFJIPRVDPLQ-F2325-27-15 03:57:00* Test Item Value Reference Range Interpretation Comments TROPONIN-I (test code = TROPI) <0.015 ng/mL 0-0.045 N COMMENTS TO ADMISSIONS NURSE: COLLECT 3 HOURS AFTER PREVIOUS NSRRSLCYTJHSQC-J3599-32-15 00:41:00* Test Item Value Reference Range Interpretation Comments TROPONIN-I (test code = TROPI) <0.015 ng/mL 0-0.045 N OGYVJD1204-66-13 21:35:00* Test Item Value Reference Range Interpretation Comments GLUBED (test code = GLUBED) 87 mg/dL 74-106 N Performed by certified steam oven operator at [facility] - CT CHEST W/XJGVJAUY5639-14-32 20:50:00 Name: JESUS ASCENCIO [facility] : 1955 Age/S: 63 / F [address] Unit #: [id number] Loc: [place] [address] Phys: Rodney Pagan MD Acct: [id number] Dis Date: Status: ADM IN PHONE #: [phone] Exam Date: 01/02/20195 FAX #: [phone] Reason: chest pain R/O DISECTION Report Has Been Amended EXAMS: CPT CODE: [id number] CT CHEST W/CONTRAST 69622 Addendum - 01/02/2019 SIGNED 01/02/2019 ADDENDUM: [id number] CT/CTCHESTW ADDENDUM: This study was a CT [...] acute PAGE 1 Signed Report (CONTINUED) Name: JANICE ASCENCIOITA [facility] : 1955 Age/S: 63 / F [address] Unit #: [id number] Loc: [facility] [place] [address] Phys: Rodney Pagan MD ct: [id number] Dis Date: Status: ADM IN PHONE #: [phone] Exam Date: 01/02/2019 1845 FAX #: [phone] Reason: chest pain R/O DISECTION Report Has Been Amended EXAMS: CPT CODE: [id number] [place] CHEST [place]AS T [address] <Continued> abnormalities. Location code: [facility] at 1923 Reported and signed by: Earl Rivera M.D. CC: Rodney Pagan MD Technologist:Volodymyr Stock RT(R),CT CTDI: DLP: Trnscb Date/Time: 01/02/2019 (1922) Ashley Orig Print D/T: S: 01/02/2019 (1925) PAGE 2 Signed Report - CT CHEST W/CONTRAST 2019-01-02 19:23:00 Name: JESUS ASCENCIO [facility] : 1955 Age/S: 63 / F [address] Unit #: [id number] Loc: [place] [address] Phys: Rodney Pagan MD Acct: [id number] Dis Date: Status: REG ER PHONE #: [phone] Exam Date: 01/02/2019 1845 FAX #: [phone] Reason: chest pain R/O DISECTION EXAMS: CPT CODE: [id number] CT CHEST W/CONTRAST 05953 EXAM: CT of the chest with contrast; [...] dissection or other acute abnormalities. Location code: [facility] at 1923 Reported and signed by: Earl Rivera M.D. CC: Rodney Pagan MD Technologist:Volodymyr Stock RT(R),CT CTDI: DLP: Trnscb Date/Time: 01/02/2019 (1922) Ashley Orig Print D/T: S: 01/02/2019 (1925) PAGE 1 Signed Report - XR CHEST 2 W6541-14-09 17:56:00 Name: JESUS ASCENCIO [facility] : 1955 Age/S:63 /F [address] Unit#:[id number] Loc: [place], [place] [address] Phys: Rodney Pagan MD Dis Date: PHONE #: [phone] Status: REG ER FAX #: [phone] Exam Date: 01/02/2019 Reason: CHEST PAIN EXAMS: CPT CODE: [id number] XR CHEST 2 V 78829 EXAM: Chest x-ray, 2 views; INFORMATION: Chest pain; IMPRESSION: 1. No evidence of active cardiopulmonary disease. 2. No change compared with a study from July 31, 2018; well-positioned left subclavian Port-A-Cath. Location code: [facility] at 1756 Reported and signed by: Earl Rivera M.D. CC: Rodney Pagan MD Ben hnologist: Volodymyr Stock RT(R),CT Trnscrpt Data: 01/02/2019 (1755) Ashley Orig Print D/T: S: 019 (487) PAGE 1 Signed Report BASIC METABOLIC RGKXU9096-04-67 17:04:00* Test Item Value Reference Range Interpretation [...] code = CA) 8.9 mg/dL 8.4-10.2 N UHCWDV4507-76-30 17:04:00* Test Item Value Reference Range Interpretation Comments LIPASE (test code = LIP) 90 U/L 128-270 L RLUFYKHH-O9112-69-14 17:04:00* Test Item Value Reference Range Interpretation Comments TROPONIN-I (test code = TROPI) <0.015 ng/mL 0.00-0.056 N CBC W/O BSHA1094-27-47 16:46:00* Test Item Value Reference Range Interpretation [...] = MPV) 10.5 fL 6.7-11.0 N Urine KSI5786-26-16 20:06:00* Test Item Value Reference Range Interpretation Comments Urine WBC (test code = 5821-4) NONE 0-5 [facility] BCY0514-98-29 20:06:00* Test Item Value Reference Range Interpretation Comments Urine RBC (test code = 88430-7) 0-5 0-5 [facility] Jzelwkar4292-10-15 20:06:00* Test Item Value Reference Range Interpretation Comments Urine Bacteria (test code = 49970-6) FEW NONE [facility] Epithelial Eudcs8165-01-98 20:06:00 * Test Item Value Reference Range Interpretation Comments Urine Epithelial Cells (test code = 56863-0) MODERATE NONE [facility] Tbsfy3178-23-92 19:54:00* Test Item Value Reference Range Interpretation Comments Urine Color (test code = 5778-6) YELLOW YELLOW [facility] Ilshnzg0666-15-91 19:54:00* Test Item Value Reference Range Interpretation Comments Urine Clarity (test code = 90418-2) CLEAR CLEAR [facility] Specific Orziexh3840-51-90 19:54:00 * Test Item Value Reference Range Interpretation Comments Urine Specific [place] (test code = 5811-5) <=1.005 1.010-1.02 5 [facility] uS2319-52-47 19:54:00* Test Item Value Reference Range Interpretation Comments Urine pH (test code = 69613-5) 6.5 5-7 [facility] Leukocyte Csvvdchp7179-69-94 19:54:00* Test Item Value Reference Range Interpretation Comments Urine Leukocyte Esterase (test code = 62353-0) NEGATIVE NEGATIV E [facility] Texas[facility] Qdljqsk4520-08-34 19:54:00* Test Item Value Reference Range Interpretation Comments Urine Nitrite (test code = 16729-2) NEGATIVE NEGATIVE [facility] Texas[facility] Jjargkb7953-59-72 19:54:00* Test Item Value Reference Range Interpretation Comments Urine Protein (test code = 99789-2) NEGATIVE NEGATIVE [facility] Texas[facility] Glucose (UA)2018-11-14 19:54:00* Test Item Value Reference Range Interpretation Comments Urine Glucose (UA) (test code = 39498-0) NEGATIVE NEGATIVE [facility] TexasU[facility] Ihmhgho9921-95-74 19:54:00* Test Item Value Reference Range Interpretation Comments Urine Ketones (test code = 79631-7) NEGATIVE NEGATIVE [facility] Fjfquzghmrve4468-98-03 19:54:00* Test Item Value Reference Range Interpretation Comments Urine Urobilinogen (test code = 18023-5) 0.2 0.2-1 [facility] Lgpgdfgna9119-67-09 19:54:00* Test Item Value Reference Range Interpretation Comments Urine Bilirubin (test code = 1977-8) NEGATIVE NEGATIVE [facility] Texas[facility] Jbxap0504-91-45 19:54:00* Test Item Value Reference Range Interpretation Comments Urine Blood (test code = 23383-1) 1+ NEGATIVE [facility] TexasCT ABDOMEN/PELVIS O5271-79-05 19:27:00 [facility] [address] [place] [address] Patient Name: JESUS ASCENCIO MR #: [id number] : 1955 Age/Sex: 63/F Req #: [id number] Adm Physician: Ordered by: ALEXSANDRA ARANDA [employer] Report #: [id number] Location: ER Room/Bed: Procedure: [id number] CT/CT ABDOMEN/PELVIS W Exam Date: 11/14/18 Exam [...] ARANDA NP CHEST SINGLE (PORTABLE) 2018-11-14 19:05:00 [place] [address] Patient Name: JESUS ASCENCIO MR #: [id number] : 1955 Age/Sex: 63/F Req #: [id number] Adm Physician: Ordered by: ALEXSANDRA ARANDA NP Report #: [id number] Location: Room/Bed: Procedure: [id number] DX/CH EST SINGLE (PORTABLE) Exam Date: 11/14/18 Exam Time: 1834 REPORT STATUS: Signed A si ngle frontal [...] ab normality. Signed by: Dr. Wiliam St D.O., M.M.M. on 9 7:07 PM Dictated By: WILIAM ST DO 06 Transcribed By: DARION on 11/14/181906 COPY TO: ALEXSANDRA ARANDA NP Creatine Kinase AB2578-60-72 18:22:00* Test Item Value Reference Range Interpretation Comments Creatine Kinase MB (test code = 08926-0) 0.90 0-5.0 [facility] TexasTroponin D7393-98-73 18:22:00* Test Item Value Reference Range Interpretation Comments Troponin I (test code = XJI3696) 0.002 0-0.300 [facility] TexasCreatine Kinase UU6901-87-50 18:22:00* Test Item Value Reference Range Interpretation Comments Creatine Kinase MB (test code = 33368-2) 0.90 0-5.0 [facility] TexasTroponin I6209-29-72 18:22:00* Test Item Value Reference Range Interpretation Comments Troponin I (test code = KLT2497) 0.002 0-0.300 [facility] TexasProthrombin Diwd9239-43-79 18:20:00* Test Item Value Reference Range Interpretation Comments Prothrombin Time (test code = 5902-2) 23.5 11.9-14.5 H [facility] TexasProthromb Time International Ratio 2018-11-14 18:20:00* Test Item Value Reference Range Interpretation Comments Prothromb Time International Ratio (test code = 6301-6) 2.02 Oral Anticoagulant Therapy INR Values:1. Low Intensity Therapy 1.5 - 2.02 . Moderate Intensity Therapy 2.0 - 3.03. High Intensity Therapy(1) 2.5 - 3. 54. High Intensity Therapy(2) 3.0 - 4.05. Panic Value INR > 5.0 [facility] TexasActivated Partial Thromboplast Time 2018-11-14 18:20:00* Test Item Value Reference Range Interpretation Comments Activated Partial Thromboplast Time (test code = 30231-0) 32.3 23.8-35.5 [facility] TexasProthrombin Auaz6529-13-79 18:20:00* Test Item Value Reference Range Interpretation Comments Prothrombin Time (test code = 5902-2) 23.5 11.9-14.5 H [facility] TexasProthromb Time International Ratio 2018-11-14 18:20:00* Test Item Value Reference Range Interpretation Comments Prothromb Time International Ratio (test code = 6301-6) 2.02 Oral Anticoagulant Therapy INR Values:1. Low Intensity Therapy 1.5 - 2.02 . Moderate Intensity Therapy 2.0 - 3.03. High Intensity Therapy(1) 2.5 - 3. 54. High Intensity Therapy(2) 3.0 - 4.05. Panic Value INR > 5.0 [facility] TexasActivated Partial Thromboplast Time 2018-11-14 18:20:00* Test Item Value Reference Range Interpretation Comments Activated Partial Thromboplast Time (test code = 11606-4) 32.3 23.8-35.5 [facility] Ypmzk8194-41-28 18:19:00* Test Item Value Reference Range Interpretation Comments Sodium Level (test code = 2951-2) 138 136-145 [facility] TexasPotassium Kqjrr4828-33-01 18:19:00* Test Item Value Reference Range Interpretation Comments Potassium Level (test code = 2823-3) 3.3 3.5-5.1 L [facility] TexasChloride Tdmdn0934-63-47 18:19:00* Test Item Value Reference Range Interpretation Comments Chloride Level (test code = 2075-0) 105 98-107 [facility] TexasCarbon Dioxide Pgymk7031-01-84 18:19:00* Test Item Value Reference Range Interpretation Comments Carbon Dioxide Level (test code = 2028-9) 23 22-29 [facility] TexasAnion Ace8780-71-00 18:19:00* Test Item Value Reference Range Interpretation Comments Anion Gap (test code = 79319-7) 13.3 8-16 [facility] TexasBlood Urea Adpcdkrw0947-42-72 18:19:00* Test Item Value Reference Range Interpretation Comments Blood Urea Nitrogen (test code = 3094-0) 15 7-26 [facility] TexasCreatinine2019-09-26 18:19:00* Test Item Value Reference Range Interpretation Comments Creatinine (test code = 2160-0) 0.81 0.57-1.11 [facility] TexasBUN/Creatinine Hyytp2985-92-38 18:19:00* Test Item Value Reference Range Interpretation Comments BUN/Creatinine Ratio (test code = 3097-3) 19 6- [facility] TexasEstimat Glomerular Filtration Rate 2018-11-14 18:19:00* Test Item Value Reference Range Interpretation Comments Estimat Glomerular Filtration Rate (test code = 855504962) > 60 >60 Ranges were taken from the National Kidney Disease Education Program and the [facility] [employer] literature.Reference ranges:60 or greater: Ewjrvd33-24 ( for 3 consecutive months): Chronic kidney disease 15 or less: Kidney failureBaptist Hospitals of Southeast TexasGlucose Iokoz6335-35-69 18:19:00* Test Item Value Reference Range Interpretation Comments Glucose Level (test code = RMQ9997) 141 74-118 H [facility] TexasCalcium Ylqgk7197-00-32 18:19:00* Test Item Value Reference Range Interpretation Comments Calcium Level (test code = 00021-3) 8.7 8.4-10.2 [facility] TexasTotal Bqlqdhwvc9938-56-87 18:19:00* Test Item Value Reference Range Interpretation Comments Total Bilirubin (test code = 1975-2) 0.4 0.2-1.2 [facility] TexasAspartate Amino Transf (AST/SGOT) 2018-11-14 18:19:00* Test Item Value Reference Range Interpretation Comments Aspartate Amino Transf (AST/SGOT) (test code = Aspartate Amino Transf (AST/SGOT)) 23 5-34 [facility] TexasAlanine Aminotransferase (ALT/SGPT) 2018-11-14 18:19:00* Test Item Value Reference Range Interpretation Comments Alanine Aminotransferase (ALT/SGPT) (test code = 1742-6) 21 0-55 [facility] TexasTotal Zltqawc5879-22-26 18:19:00* Test Item Value Reference Range Interpretation Comments Total Protein (test code = 2885-2) 7.5 6.5-8.1 [facility] TexasAlbumin2019-09-26 18:19:00* Test Item Value Reference Range Interpretation Comments Albumin (test code = 1751-7) 3.3 3.5-5.0 L [facility] TexasGlobulin2019-09-26 18:19:00* Test Item Value Reference Range Interpretation Comments Globulin (test code = 08007-3) 4.2 2.3-3.5 H [facility] TexasAlbumin/Globulin Gydma4316-04-79 18:19:00 * Test Item Value Reference Range Interpretation Comments Albumin/Globulin Ratio (test code = 1759-0) 0.8 0.8-2.0 [facility] TexasAlkaline Chywpacgnnf6496-89-51 18:19:00* Test Item Value Reference Range Interpretation Comments Alkaline Phosphatase (test code = 6768-6) 79 40-150 [facility] TexasCreatine Hqtbgv5006-47-42 18:19:00* Test Item Value Reference Range Interpretation Comments Creatine Kinase (test code = 2157-6) 73 29-168 [facility] TexasLipase2019-09-26 18:19:00* Test Item Value Reference Range Interpretation Comments Lipase (test code = 3040-3) 10 8-78 [facility] TexasCreatine Bvsurh1284-21-96 18:19:00* Test Item Value Reference Range Interpretation Comments Creatine Kinase (test code = 2157-6) 73 29-168 [facility] TexasWhite Blood Hlexp5241-70-39 18:03:00* Test Item Value Reference Range Interpretation Comments White Blood Count (test code = 6690-2) 7.62 4.8-10.8 [facility] TexasRed Blood Ltwcf9725-37-33 18:03:00* Test Item Value Reference Range Interpretation Comments Red Blood Count (test code = 789-8) 4.14 3.6-5.1 [facility] TexasHemoglobin2019-09-26 18:03:00* Test Item Value Reference Range Interpretation Comments Hemoglobin (test code = 00092-1) 13.3 12.0-16.0 [facility] TexasHematocrit2019-09-26 18:03:00* Test Item Value Reference Range Interpretation Comments Hematocrit (test code = 4544-3) 39.0 34.2-44.1 [facility] Southeast TexasMean Corpuscular Ggnejd7192-41-18 18:03:00* Test Item Value Reference Range Interpretation Comments Mean Corpuscular Volume (test code = 787-2) 94.2 81-99 [facility] TexasMean Corpuscular Nmbrxikxuy0103-81-61 18:03:00* Test Item Value Reference Range Interpretation Comments Mean Corpuscular Hemoglobin (test code = 785-6) 32.1 28-32 H [facility] Southeast TexasMean Corpuscular Hemoglobin Concent 2018-11-14 18:03:00* Test Item Value Reference Range Interpretation Comments Mean Corpuscular Hemoglobin Concent (test code = 786-4) 34.1 31-35 [facility] Southeast TexasRed Cell Distribution Txogf4903-57-41 18:03:00* Test Item Value Reference Range Interpretation Comments Red Cell Distribution Width (test code = 05995-9) 12.4 11.7 -14.4 [facility] Southeast TexasPlatelet Laeda3987-24-67 18:03:00* Test Item Value Reference Range Interpretation Comments Platelet Count (test code = 777-3) 248 140-360 [facility] TexasNeutrophils (%) (Auto)2018-11-14 18:03:00 * Test Item Value Reference Range Interpretation Comments Neutrophils (%) (Auto) (test code = 75150-0) 63.4 38.7-80.0 [facility] TexasLymphocytes (%) (Auto)2018-11-14 18:03:00 * Test Item Value Reference Range Interpretation Comments Lymphocytes (%) (Auto) (test code = 736-9) 25.9 18.0-39.1 [facility] TexasMonocytes (%) (Auto)2018-11-14 18:03:00* Test Item Value Reference Range Interpretation Comments Monocytes (%) (Auto) (test code = 5905-5) 5.4 4.4-11.3 [facility] TexasEosinophils (%) (Auto)2018-11-14 18:03:00 * Test Item Value Reference Range Interpretation Comments Eosinophils (%) (Auto) (test code = 713-8) 4.6 0.0-6.0 [facility] TexasBasophils (%) (Auto)2018-11-14 18:03:00* Test Item Value Reference Range Interpretation Comments Basophils (%) (Auto) (test code = 706-2) 0.3 0.0-1.0 [facility] Southeast TexasIM GRANULOCYTES %2018-11-14 18:03:00* Test Item Value Reference Range Interpretation Comments IM GRANULOCYTES % (test code = IM GRANULOCYTES %) 0.4 0.0- 1.0 [facility] TexasNeutrophils # (Auto)2018-11-14 18:03:00* Test Item Value Reference Range Interpretation Comments Neutrophils # (Auto) (test code = 751-8) 4.8 2.1-6.9 [facility] TexasLymphocytes # (Auto)2018-11-14 18:03:00* Test Item Value Reference Range Interpretation Comments Lymphocytes # (Auto) (test code = 13392-2) 2.0 1.0-3.2 [facility] TexasMonocytes # (Auto)2018-11-14 18:03:00* Test Item Value Reference Range Interpretation Comments Monocytes # (Auto) (test code = 742-7) 0.4 0.2-0.8 [facility] TexasEosinophils # (Auto)2018-11-14 18:03:00* Test Item Value Reference Range Interpretation Comments Eosinophils # (Auto) (test code = 711-2) 0.4 0.0-0.4 [facility] TexasBasophils # (Auto)2018-11-14 18:03:00* Test Item Value Reference Range Interpretation Comments Basophils # (Auto) (test code = 704-7) 0.0 0.0-0.1 [facility] TexasAbsolute Immature Granulocyte (auto 2018-11-14 18:03:00* Test Item Value Reference Range Interpretation Comments Absolute Immature Granulocyte (auto (sidney t code = Absolute Immature Granulocyte (auto) 0.03 0-0.1 [facility] TexasPROTHROMBIN YDHS8798-52-63 02:08:00* Test Item Value Reference Range Interpretation [...] (2.5-3.5) IS PATIENT ON ANTICOAGULANTS? NTHROMBOPLASTIN TIME BXJYIZT6778-23-52 02:08:00* Test Item Value Reference Range Interpretation Comments THROMBOPLASTIN TIME PARTIAL (test code = PTT) 23.7 seconds 25.5-34. 3 L Therapeutic Range for patients on Heparin Therapy is 2 to2.5 times their baseline PTT level. IS PATIENT ON ANTICOAGULANTS? N- XR HAND 3 + V ZP3361-22-57 01:59:00 Name: JESUS ASCENCIO [facility] : 1955 Age/S:63 /F [address] [address] Unit#:[id number] Loc: [place] [address] Phys: Yury Mansfield MD Dis Date: PHONE #: [phone] Status: REG FAX #: [phone] Exam Date: 09/23/2018 Re ason: FALL EXAMS: CPT CODE: [id number] XR HAND 3 + [place] [address] AFTER HOURS SERVICE ON: 09/23/2018 1:5 8 [...] by: Natasha ruelas M.D. CC: Technologist: TRUNG JONES(R),RDMS,CT Tr nscrpt Data: 09/23/2018 (015) JoannaMA50 Orig Print D/T : S: 09/23/2018 (0203) PAGE 1 Sig laurie Report - XR KNEE 3 V [id number] 01:58:00 Name: JESUS ASCENCIO [facility] : 1955 Age/S:63 /F [address] [facility] Unit#:[id number] Loc: [place] [address] Phys: Yury Mansfield MD Dis Date: PHONE #: [phone] Status: REG ER FAX #: [phone] Exam Date: 09/23/2018 Re ason: FALL EXAMS: CPT CODE: [id number] XR KNEE [address] [place] [address] AFTER HOURS SERVICE ON: 09/23/2018 1:5 7 AM Left Knee, 4 Views Location Code M12 History: FALL Findings: There is normal anatomic alignment. There is osteopenia. Moderate degenerative changes are seen. There is no fracture or joint effusion. Impression: No fracture. Osteoarthritic changes and osteopen ia. at 0158 Reported and signed by: Natasha Bermudez M.D. CC: Technologist: TRUNG JONES R),ROMS,CT Trnscrpt Data: 09/23/2018 (015) JoannaMA5 0 Orig Print D/T: S: 09/23/2018 (0201) PAGE 1 Signed Report Stress Test - Treadmill UKMD6957-31-30 10:21:00 [facility] [address] [place] [address] Patient Name : JESUS ASCENCIO MR #: [id number] : 1955 Age/Sex: 63/F Adm Physician : NIKKO OCONNOR MD Admit Date : 08/09/18 Location : [facility] Room/Bed : [place] [address] REPORT: Myoview Str ess Test DATE OF [...] abnormalities. Jason Ross MD ABS/MACO : 38 /[id number] Signature Date Dictated By: RAGHAV ROSS MD Transcribed By: MACO on 08/29/18 <Electronically signed by RAGHAV ROSS MD><<Signature on File>>09/19/18 1240 COPY TO: Bedside Afrvxyg8417-20-14 20:28:00* Test Item Value Reference Range Interpretation Comments Bedside Glucose (test code = 47155-5) 129 70-120 H Meter ID: [id number] [facility]ervilleBedside Glucose 2018-08-27 20:28:00* Test Item Value Reference Range Interpretation Comments Bedside Glucose (test code = 88716-0) 129 70-120 H Meter ID: [id number] [facility]ervilleBlood Culture 2018-08-15 23:05:00* Test Item Value Reference Range Interpretation Comments Blood Culture (test code = 84916014) NO GROWTH AFTER 5 DAYS, FINAL REPORT [facility] TexasBlood Gpwteno4379-17-28 23:05:00* Test Item Value Reference Range Interpretation Comments Blood Culture (test code = 53534659) NO GROWTH AFTER 5 DAYS, FINAL REPORT [facility] TexasCarcinoembryonic Bnngoqq8729-72-07 05:23:00* Test Item Value Reference Range Interpretation Comments Carcinoembryonic Antigen (test code = 2039-6) 1.8 0.0-4.7 Nonsmokers <3.9 Smokers <5.6[employer] Electrochemiluminescence Immunoassay(ECLIA)Values obtained with different assay methods or kitscannot be used interchangeably. Results cannot beinterpreted as absolute evidence of the presence orabsence of malignant disease.Performed at: [place] [id number] Director: John Paul Painter MD, Phone: [phone] Hospitals of Southeast TexasCarcinoembryonic Antigen 2018-08-13 05:23:00* Test Item Value Reference Range Interpretation Comments Carcinoembryonic Antigen (test code = 2039-6) 1.8 0.0-4.7 Nonsmokers <3.9 Smokers <5.6[employer] Electrochemiluminescence Immunoassay(ECLIA)Values obtained with different assay methods or kitscannot be used interchangeably. Results cannot beinterpreted as absolute evidence of the presence orabsence of malignant disease.Performed at: [facility] [address] [place], [place] [id number] Director: John Paul Painter MD, Phone: [phone] Hospitals of Southeast TexasBedside Jwpkkqs5126-24-48 15:54:00* Test Item Value Reference Range Interpretation Comments Bedside Glucose (test code = 67491-9) 109 70-120 Meter ID: [id number] Hospitals of Southeast TexasBlood Culture 2018-08-11 23:05:00* Test Item Value Reference Range Interpretation Comments Blood Culture (test code = 73663621) NO GROWTH AFTER 24 HOURS [facility] TexasCholesterol Qqjxx9158-68-95 16:57:00* Test Item Value Reference Range Interpretation Comments Cholesterol Level (test code = 2093-3) 157 0-199 Less than 200 mg/dL Low Gnmv411 - 239 mg/dL Borderline Jzbg199 m g/dl and greater High Risk [facility] TexasLDL Ipaqbizchxl4727-67-04 16:57:00* Test Item Value Reference Range Interpretation Comments LDL Cholesterol (test code = 2089-1) 88 60-130 [facility] TexasCholesterol/HDL Alael8745-60-68 16:57:00 * Test Item Value Reference Range Interpretation Comments Cholesterol/HDL Ratio (test code = 9830-1) 3.6 3.0-3.6 [facility] TexasCholesterol Ncbrw0661-99-72 16:57:00* Test Item Value Reference Range Interpretation Comments Cholesterol Level (test code = 2093-3) 157 0-199 Less than 200 mg/dL Low Cead956 - 239 mg/dL Borderline Adey393 m g/dl and greater High Risk [facility] Southeast TexasLDL Qffgsfatmbv7766-06-49 16:57:00* Test Item Value Reference Range Interpretation Comments LDL Cholesterol (test code = 2089-1) 88 60-130 [facility] TexasCholesterol/HDL Lfyqd4887-54-62 16:57:00 * Test Item Value Reference Range Interpretation Comments Cholesterol/HDL Ratio (test code = 9830-1) 3.6 3.0-3.6 [facility] TexasCholesterol Mdgoz2019-38-58 16:57:00* Test Item Value Reference Range Interpretation Comments Cholesterol Level (test code = 2093-3) 157 0-199 Less than 200 mg/dL Low Pvmp933 - 239 mg/dL Borderline Ddzu469 m g/dl and greater High Risk [facility] TexasLDL Jxeveluafjs7398-72-01 16:57:00* Test Item Value Reference Range Interpretation Comments LDL Cholesterol (test code = 2089-1) 88 60-130 [facility] TexasCholesterol/HDL Qixdx8104-58-60 16:57:00 * Test Item Value Reference Range Interpretation Comments Cholesterol/HDL Ratio (test code = 9830-1) 3.6 3.0-3.6 [facility] TexasTriglycerides Ffzhp9880-60-82 16:19:00* Test Item Value Reference Range Interpretation Comments Triglycerides Level (test code = 2571-8) 124 0-149 [facility] Vtbqtxoeask2359-80-96 16:19:00* Test Item Value Reference Range Interpretation Comments HDL Cholesterol (test code = 2085-9) 44 40-60 [facility] TexasTriglycerides Kttgk1629-66-85 16:19:00* Test Item Value Reference Range Interpretation Comments Triglycerides Level (test code = 2571-8) 124 0-149 [facility] Ydlopdrimun0894-03-62 16:19:00* Test Item Value Reference Range Interpretation Comments HDL Cholesterol (test code = 2085-9) 44 40-60 [facility] TexasTriglycerides Jsuxu1290-74-88 16:19:00* Test Item Value Reference Range Interpretation Comments Triglycerides Level (test code = 2571-8) 124 0-149 [facility] Xwbeibqjqeb5849-00-58 16:19:00* Test Item Value Reference Range Interpretation Comments HDL Cholesterol (test code = 2085-9) 44 40-60 [facility] TexasCHEST SINGLE (PORTABLE)2018-08-10 07:36:00 [place] [address] Patient Name: JESUS ASCENCIO MR #: [id number] : 1955 Age/Sex: 63/F Req #: [id number] Adm Physician: NIKKO OCONNOR MD Ordered by: JOHNNY MCCORMICK NP Report #: [id number] Location: [facility] Room/Bed: [place] [address] Procedure: [id number] DX/CHES T SINGLE (PORTABLE) Exam Date: 08/10/18 Exam Time: 0 605 REPORT STATUS: Signed EXAMIN ATION: CHEST SINGLE (PORTABLE) INDICATION: CP/SOB [id number] 2 604 COMPARISON: CT chest and chest radiograph 08/09/2018 [...] PY TO: JOHNNY MCCORMICK NP Creatine Kinase ES7833-89-77 07:23:00* Test Item Value Reference Range Interpretation Comments Creatine Kinase MB (test code = 46033-2) 0.70 0-5.0 [facility] TexasTroponin E7895-65-03 07:23:00* Test Item Value Reference Range Interpretation Comments Troponin I (test code = TCT2863) < 0.001 0-0.300 [facility] Xfwbr8407-83-05 07:04:00* Test Item Value Reference Range Interpretation Comments Sodium Level (test code = 2951-2) 140 136-145 [facility] TexasPotassium Tfusq1371-58-20 07:04:00* Test Item Value Reference Range Interpretation Comments Potassium Level (test code = 2823-3) 4.1 3.5-5.1 [facility] TexasChloride Xhckg9553-34-48 07:04:00* Test Item Value Reference Range Interpretation Comments Chloride Level (test code = 2075-0) 108 98-107 H [facility] [facility] TexasCarbon Dioxide Avoum8345-93-05 07:04:00* Test Item Value Reference Range Interpretation Comments Carbon Dioxide Level (test code = 2028-9) 24 22-29 [facility] TexasAnion Ekp5535-04-62 07:04:00* Test Item Value Reference Range Interpretation Comments Anion Gap (test code = 22824-7) 12.1 8-16 [facility] TexasBlood Urea Mywdygrv8684-75-62 07:04:00* Test Item Value Reference Range Interpretation Comments Blood Urea Nitrogen (test code = 3094-0) 19 7-26 [facility] TexasCreatinine2019-06-22 07:04:00* Test Item Value Reference Range Interpretation Comments Creatinine (test code = 2160-0) 0.74 0.57-1.11 [facility] TexasBUN/Creatinine Colju1810-27-18 07:04:00* Test Item Value Reference Range Interpretation Comments BUN/Creatinine Ratio (test code = 3097-3) 26 6-25 H [facility] Southeast TexasEstimat Glomerular Filtration Rate 2018-08-10 07:04:00* Test Item Value Reference Range Interpretation Comments Estimat Glomerular Filtration Rate (test code = 096167721) > 60 >60 Ranges were taken from the National Kidney Disease Education Program and the [facility]ney Foundation literature.Reference ranges:60 or greater: Idbbxe05-85 ( for 3 consecutive months): Chronic kidney disease 15 or less: Kidney failureBaptist Hospitals of Southeast TexasGlucose Xfohk1118-43-24 07:04:00* Test Item Value Reference Range Interpretation Comments Glucose Level (test code = NVJ8372) 104 74-118 [facility] TexasCalcium Mokvq1343-32-31 07:04:00* Test Item Value Reference Range Interpretation Comments Calcium Level (test code = 53793-5) 8.5 8.4-10.2 [facility] TexasCreatine Finami4465-02-65 07:04:00* Test Item Value Reference Range Interpretation Comments Creatine Kinase (test code = 2157-6) 37 29-168 [facility] TexasWhite Blood Ncgce1893-06-16 06:59:00* Test Item Value Reference Range Interpretation Comments White Blood Count (test code = 6690-2) 6.68 4.8-10.8 [facility] TexasRed Blood Plibc1547-30-58 06:59:00* Test Item Value Reference Range Interpretation Comments Red Blood Count (test code = 789-8) 3.77 3.6-5.1 [facility] TexasHemoglobin2019-06-22 06:59:00* Test Item Value Reference Range Interpretation Comments Hemoglobin (test code = 02935-3) 12.3 12.0-16.0 [facility] TexasHematocrit2019-06-22 06:59:00* Test Item Value Reference Range Interpretation Comments Hematocrit (test code = 4544-3) 36.2 34.2-44.1 [facility] Southeast TexasMean Corpuscular Thitzn4773-04-27 06:59:00* Test Item Value Reference Range Interpretation Comments Mean Corpuscular Volume (test code = 787-2) 96.0 81-99 [facility] TexasMean Corpuscular Odprznfrhq6062-65-24 06:59:00* Test Item Value Reference Range Interpretation Comments Mean Corpuscular Hemoglobin (test code = 785-6) 32.6 28-32 H [facility] Southeast TexasMean Corpuscular Hemoglobin Concent 2018-08-10 06:59:00* Test Item Value Reference Range Interpretation Comments Mean Corpuscular Hemoglobin Concent (test code = 786-4) 34.0 31-35 [facility] TexasRed Cell Distribution Dcljd6709-23-87 06:59:00* Test Item Value Reference Range Interpretation Comments Red Cell Distribution Width (test code = 09322-7) 12.7 11.7 -14.4 [facility] TexasPlatelet Raypc7846-36-26 06:59:00* Test Item Value Reference Range Interpretation Comments Platelet Count (test code = 777-3) 228 140-360 [facility] TexasNeutrophils (%) (Auto)2018-08-10 06:59:00 * Test Item Value Reference Range Interpretation Comments Neutrophils (%) (Auto) (test code = 28564-9) 42.5 38.7-80.0 [facility] TexasLymphocytes (%) (Auto)2018-08-10 06:59:00 * Test Item Value Reference Range Interpretation Comments Lymphocytes (%) (Auto) (test code = 736-9) 42.7 18.0-39.1 H [facility] TexasMonocytes (%) (Auto)2018-08-10 06:59:00* Test Item Value Reference Range Interpretation Comments Monocytes (%) (Auto) (test code = 5905-5) 7.3 4.4-11.3 [facility] TexasEosinophils (%) (Auto)2018-08-10 06:59:00 * Test Item Value Reference Range Interpretation Comments Eosinophils (%) (Auto) (test code = 713-8) 6.6 0.0-6.0 H [facility] TexasBasophils (%) (Auto)2018-08-10 06:59:00* Test Item Value Reference Range Interpretation Comments Basophils (%) (Auto) (test code = 706-2) 0.6 0.0-1.0 [facility] TexasIM GRANULOCYTES %2018-08-10 06:59:00* Test Item Value Reference Range Interpretation Comments IM GRANULOCYTES % (test code = IM GRANULOCYTES %) 0.3 0.0- 1.0 [facility] TexasNeutrophils # (Auto)2018-08-10 06:59:00* Test Item Value Reference Range Interpretation Comments Neutrophils # (Auto) (test code = 751-8) 2.8 2.1-6.9 [facility] TexasLymphocytes # (Auto)2018-08-10 06:59:00* Test Item Value Reference Range Interpretation Comments Lymphocytes # (Auto) (test code = 17811-0) 2.9 1.0-3.2 [facility] TexasMonocytes # (Auto)2018-08-10 06:59:00* Test Item Value Reference Range Interpretation Comments Monocytes # (Auto) (test code = 742-7) 0.5 0.2-0.8 [facility] TexasEosinophils # (Auto)2018-08-10 06:59:00* Test Item Value Reference Range Interpretation Comments Eosinophils # (Auto) (test code = 711-2) 0.4 0.0-0.4 [facility] TexasBasophils # (Auto)2018-08-10 06:59:00* Test Item Value Reference Range Interpretation Comments Basophils # (Auto) (test code = 704-7) 0.0 0.0-0.1 [facility] TexasAbsolute Immature Granulocyte (auto 2018-08-10 06:59:00* Test Item Value Reference Range Interpretation Comments Absolute Immature Granulocyte (auto (sidney t code = Absolute Immature Granulocyte (auto) 0.02 0-0.1 [facility] TexasProthrombin Kvtl3127-84-79 06:58:00* Test Item Value Reference Range Interpretation Comments Prothrombin Time (test code = 5902-2) 13.4 11.9-14.5 [facility] TexasProthromb Time International Ratio 2018-08-10 06:58:00* Test Item Value Reference Range Interpretation Comments Prothromb Time International Ratio (test code = 6301-6) 0.97 Oral Anticoagulant Therapy INR Values:1. Low Intensity Therapy 1.5 - 2.02 . Moderate Intensity Therapy 2.0 - 3.03. High Intensity Therapy(1) 2.5 - 3. 54. High Intensity Therapy(2) 3.0 - 4.05. Panic Value INR > 5.0 [facility] TexasActivated Partial Thromboplast Time 2018-08-10 06:58:00* Test Item Value Reference Range Interpretation Comments Activated Partial Thromboplast Time (test code = 38874-3) 29.2 23.8-35.5 [facility] Southeast TexasCT CHEST P3051-20-73 19:36:00 [facility] [address] [address] Patient Name: JESUS ASCENCIO MR #: [id number] : 1955 Age/Sex: 63/F Req #: [id number] Adm Physician: NIKKO OCONNOR MD Ordered by: JOHNNY MCCORMICK [employer] Report #: [id number] Location: [facility]/Bed: [place] [address] Procedure: [id number] CT/CT C HEST W Exam Date: 08/09/18 Exam Time: 1849 REPORT STATUS: Signed CT chest pulmonary embolism protocol CPT code: 87737 INDICATION: Chest pain PE protocol [id number] 1849 TECHNIQUE: Thin collimation axial images obtained [...] TO: JOHNNY MCCORMICK NP CHEST XRAY LINE NYLXCTIJH8406-58-29 18:27:00 [place] [id number] Patient Name: JESUS ASCENCIO MR #: [id number] : 1955 Age/Sex: 63/F Req #: [id number] Adm Physician: NIKKO OCONNOR MD Ordered by: TONYA ALANIS MD Report #: [id number] Location: [facility] Room/Bed: [place] [address] Procedure: [id number] DX/CHES T XRAY LINE PLACEMENT Exam Date: [...] 08/09/181827 COPY TO: TONYA ALANIS MD Urine UVV3726-80-46 14:11:00* Test Item Value Reference Range Interpretation Comments Urine WBC (test code = 5821-4) NONE 0-5 [facility] TexasUrine EZC6758-94-99 14:11:00* Test Item Value Reference Range Interpretation Comments Urine RBC (test code = 60353-7) 6-10 0-5 H [facility] TexasUrine Ayindxcb0099-40-62 14:11:00* Test Item Value Reference Range Interpretation Comments Urine Bacteria (test code = 79863-8) MANY NONE H [facility] TexasUrine Epithelial Cydjt2245-36-53 14:11:00 * Test Item Value Reference Range Interpretation Comments Urine Epithelial Cells (test code = 73170-2) MODERATE NONE [facility] Amorphous Moskpqew3631-68-41 14:11:00* Test Item Value Reference Range Interpretation Comments Urine Amorphous Sediment (test code = 8246-1) MODERATE FEW H [facility] Amorphous Wbmwcfdw6355-52-31 14:11:00* Test Item Value Reference Range Interpretation Comments Urine Amorphous Sediment (test code = 8246-1) MODERATE FEW H [facility] TexasUrine Amorphous Cdeahkqm7318-96-51 14:11:00* Test Item Value Reference Range Interpretation Comments Urine Amorphous Sediment (test code = 8246-1) MODERATE FEW H [facility] TexasUrine Xiaxf3950-68-09 14:09:00* Test Item Value Reference Range Interpretation Comments Urine Color (test code = 5778-6) YELLOW YELLOW [facility] TexasUrine Htpfbbs9916-86-09 14:09:00* Test Item Value Reference Range Interpretation Comments Urine Clarity (test code = 81383-7) CLEAR CLEAR [facility] TexasUrine Specific Zyueyei3851-71-39 14:09:00 * Test Item Value Reference Range Interpretation Comments Urine Specific [place] (test code = 5811-5) 1.025 1.010-1.02 5 [facility] TexasUrine cL5040-45-63 14:09:00* Test Item Value Reference Range Interpretation Comments Urine pH (test code = 61071-7) 6 5-7 [facility] TexasUrine Leukocyte Irijxtbr1732-35-90 14:09:00* Test Item Value Reference Range Interpretation Comments Urine Leukocyte Esterase (test code = 35301-2) TRACE NEGATIV E H [facility] TexasUrine Ggmkguf5964-27-21 14:09:00* Test Item Value Reference Range Interpretation Comments Urine Nitrite (test code = 60074-0) NEGATIVE NEGATIVE [facility] TexasUrine Hsefzrd0761-71-95 14:09:00* Test Item Value Reference Range Interpretation Comments Urine Protein (test code = 60997-6) NEGATIVE NEGATIVE [facility] TexasUrine Glucose (UA)2018-08-09 14:09:00* Test Item Value Reference Range Interpretation Comments Urine Glucose (UA) (test code = 13781-2) NEGATIVE NEGATIVE [facility] TexasUrine Mikmbak0697-52-20 14:09:00* Test Item Value Reference Range Interpretation Comments Urine Ketones (test code = 04496-3) NEGATIVE NEGATIVE [facility] TexasUrine Jfktszlbqloh1489-19-91 14:09:00* Test Item Value Reference Range Interpretation Comments Urine Urobilinogen (test code = 66346-3) 0.2 0.2-1 [facility] TexasUrine Mzcpfiiop3610-69-91 14:09:00* Test Item Value Reference Range Interpretation Comments Urine Bilirubin (test code = 1977-8) NEGATIVE NEGATIVE [facility] TexasUrine Crssd5979-27-03 14:09:00* Test Item Value Reference Range Interpretation Comments Urine Blood (test code = 96313-0) MODERATE NEGATIVE [facility] TexasCHEST 2 BXMGZ0698-92-24 14:08:00 [place] [address] Patient Name: JESUS ASCENCIO MR #: [id number] : 1955 Age/Sex: 63/F Req #: [id number] Adm Physician: Ordered by: TONYA ALANIS MD Report #: [id number] Location: [facility]/Bed: Procedure: [id number] DX/CHES T 2 VIEWS Exam Date: 08/09/18 [...] Comments B-Type Natriuretic Peptide (test code = 46324-3) < 10.0 0-100 [facility] TexasB-Type Natriuretic Qeupfoo1698-16-43 13:22:00* Test Item Value Reference Range Interpretation Comments B-Type Natriuretic Peptide (test code = 48106-4) < 10.0 0-100 [facility] TexasB-Type Natriuretic Yiigfqw5046-65-44 13:22:00* Test Item Value Reference Range Interpretation Comments B-Type Natriuretic Peptide (test code = 89824-0) < 10.0 0-100 [facility] TexasMagnesium Nqmte8774-11-86 13:00:00* Test Item Value Reference Range Interpretation Comments Magnesium Level (test code = 59443-4) 2.4 1.3-2.1 H [facility] TexasTotal Tqmmnjskn9444-40-04 13:00:00* Test Item Value Reference Range Interpretation Comments Total Bilirubin (test code = 1975-2) 0.6 0.2-1.2 [facility] TexasAspartate Amino Transf (AST/SGOT) 2018-08-09 13:00:00* Test Item Value Reference Range Interpretation Comments Aspartate Amino Transf (AST/SGOT) (test code = Aspartate Amino Transf (AST/SGOT)) 20 5-34 [facility] TexasAlanine Aminotransferase (ALT/SGPT) 2018-08-09 13:00:00* Test Item Value Reference Range Interpretation Comments Alanine Aminotransferase (ALT/SGPT) (test code = 1742-6) 20 0-55 [facility] TexasTotal Mjgvhxy1221-74-23 13:00:00* Test Item Value Reference Range Interpretation Comments Total Protein (test code = 2885-2) 8.0 6.5-8.1 [facility] TexasAlbumin2019-06-21 13:00:00* Test Item Value Reference Range Interpretation Comments Albumin (test code = 1751-7) 3.7 3.5-5.0 [facility] TexasGlobulin2019-06-21 13:00:00* Test Item Value Reference Range Interpretation Comments Globulin (test code = 41125-4) 4.3 2.3-3.5 H [facility] TexasAlbumin/Globulin Bjbiu5869-32-90 13:00:00 * Test Item Value Reference Range Interpretation Comments Albumin/Globulin Ratio (test code = 1759-0) 0.9 0.8-2.0 [facility] TexasAlkaline Sramthlmpwx3283-80-45 13:00:00* Test Item Value Reference Range Interpretation Comments Alkaline Phosphatase (test code = 6768-6) 84 40-150 [facility] TexasMagnesium Mxhmk5181-25-53 13:00:00* Test Item Value Reference Range Interpretation Comments Magnesium Level (test code = 46924-2) 2.4 1.3-2.1 H [facility] TexasMagnesium Lhpne0681-25-56 13:00:00* Test Item Value Reference Range Interpretation Comments Magnesium Level (test code = 03859-4) 2.4 1.3-2.1 H [facility] Southeast TexasD-Dimer Quantitative (PE/DVT)2018-08-09 12:54:00* Test Item Value Reference Range Interpretation Comments D-Dimer Quantitative (PE/DVT) (test code = 38005-3) 0.53 0. 00-0.45 H As with all in vitro diagnostic tests, the test results should be interpreted by the physician in conjunction with clinical findings and other test results.Test results are reported in NEW D-dimer units(ug/mLFEU).[facility] Southeast TexasD-Dimer Quantitative (PE/DVT)2018-08-09 12:54:00* Test Item Value Reference Range Interpretation Comments D-Dimer Quantitative (PE/DVT) (test code = 04736-9) 0.53 0. 00-0.45 H As with all in vitro diagnostic tests, the test results should be interpreted by the physician in conjunction with clinical findings and other test results.Test results are reported in NEW D-dimer units(ug/mLFEU).[facility] Southeast TexasD-Dimer Quantitative (PE/DVT)2018-08-09 12:54:00* Test Item Value Reference Range Interpretation Comments D-Dimer Quantitative (PE/DVT) (test code = 84996-3) 0.53 0. 00-0.45 H As with all in vitro diagnostic tests, the test results should be interpreted by the physician in conjunction with clinical findings and other test results.Test results are reported in NEW D-dimer units(ug/mLFEU).[facility] TexasGLUCOSE BEDSIDE LYNSWDU0431-38-87 13:33:00* Test Item Value Reference Range Interpretation Comments GLUCOSE BEDSIDE TESTING (test code = GLUBED) 100 MG/DL 70-119 N GLUCOSE BEDSIDE LZAILMJ2226-81-74 09:24:00* Test Item Value Reference Range Interpretation Comments GLUCOSE BEDSIDE TESTING (test code = GLUBED) 114 MG/DL 70-119 N - NM MYOCRD SPECT R/S DSNY2796-18-26 15:40:00 Patient Name: JESUS ASCENCIO Unit No: [id number] EXAMS: CPT CODE: [id number] NM MYOC RD SPECT R/S MULT 77781 [facility] Myocardial Perfusion Imaging Indication: Chest pain, [...] or processing and reporting. CC: Jorgito Ndiaye NP; Jamil Kwan MD [facility] NAME: JESUS ASCENCIO MEDICAL IMAGING PHYS : Jorgito Mayen NP [address] [place] [address] : [birth year] AGE: 63 SEX: [place], [place] [address] [facility] [id number] LOC: B.240 W PHONE #: [phone] EXAM DATE: 08/01/19 19 STATUS: ADM IN FAX #: [phone] RAD NO: DC Dt : PAGE 1 Signed Report Patient Name: JESUS ASCENCIO Unit No: [id number] EXAMS: CPT CODE: [id number] NM MYOCRD SPECT R/S MULT 59998 <Continued> Technologist: SAMEER STREETER. [facility]; RAGHAV ROCKWELL; .. Transcri bed Date/Time: 07/31/2018 (9955) - t.SDR.HY1 Orig Print D/T: S: 07/31/2018 (0899) [facility] [place] NAME: JESUS ASCENCIO MEDICAL IMAGING PHYS: Jorgito Mayen [address] : 1955 AGE: 63 SEX: F [place], [place] [address] LOC: B.240 W PHONE #: [phone] EX AM DATE: 07/31/2018 STATUS: ADM IN FAX #: [phone] RAD NO: DC Dt: PAGE 2 Signed Report GLUCOSE BEDSIDE TRHRXIE0578-45-62 15:04:00* Test Item Value Reference Range Interpretation [...] Index/DL 1 NOR MAL - US CHST W/JYFWDFSXXVL0594-75-78 11:45:00 Patient Name: JESUS ASCENCIO Unit No: [id number] EXAMS: CPT CODE: [id number] US CHST W/MEDIASTINUM 72404 LOCATION: T18 Soft tissue ultrasound left chest [...] MD; Jamil Kwan MD Technologist: Komal Cohen MS Trnscrbd D/ (1145) Lauren Probe: Orig Print D/T: S: 07/31/2018 (1148) Probe: MARIANA Johnson NAME: JESUS ASCENCIO MEDICAL IMAGING PHYS: BRENDA - Tor Carmichael [address] [place] [address] BLVD : 1955 AGE: 63 SEX: F [place], [place] [address] LOC: B.240 W PHONE #: [phone] EXAM DATE: 07/31/2018 STATUS: ADM IN FAX #: [phone] RAD NO: Page 1 Signed Report [id number]-D1109-41-12 09:27:00* Test Item Value Reference Range Interpretation [...] of temporal changes in troponin levelscharacteristic of NE. XBQEVSQO-X9032-76-12 04:52:00* Test Item Value Reference Range Interpretation [...] of temporal changes in troponin levelscharacteristic of NE. URINALYSIS XIRZOOCF0135-00-10 03:32:00* Test Item Value Reference Range Interpretation [...] RARE /LPF NONE - CT ABD PELVIS W/OQHQ9522-75-96 01:50:00 Patient Name: JESUS ASCENCIO Unit No: [id number] EXAMS: CPT CODE: [id number] CT ABD PELVIS W/CONT 64275 EXAM: CT ABDOMEN AND PELVIS WITH IV CONTRAST DICTATION LOCATION: [facility] HISTORY: Female, 63 years of age with [...] intraperitoneal air. No free intraperitoneal flui d. SEBASTIENH [place] NAME: JESUS ASCENCIO [address] PHYS: Jamil [address] [place] [address] : 1955 AGE: 63 SEX: F LOC: B.ERS PHONE #: EXAM DATE: 07/31/2018 STATUS: REG ER FAX #: [phone] RAD #: D/C DT PAGE 1 Signed Report (CONTINUED) Patient Name: JANICE ASCENCIO Unit No: [id number] EXAMS: CPT CODE: [id number] CT ABD PELVIS W/CONT [address]4575 <Continued> IMPRESSION: 1. No acute findings in abdomen or pelvis. 2. Fatty liver. 3. Diverticulosis coli without evidence for acute diverticulitis. 4. Evidence for previous sigmoid colon resection. 5. Status post cholecystectomy. at 0150 Reported and signed by: Macrina Alvarez MD CC: Jamil Kwan MD Dictated Date/Time: 07/31/2018 (0150) Technologist: Gerson Tello - Agency CTDI: 11.74 DLP: 638.11 Trnscrpt: 07/31/2018 (0150) [email or web address] [facility] [place] NAME: JANICE ASCENCIO[address] PHYS: Jamil Wong [place] [address] : 1955 AGE: 63 SEX: F LOC: B.ERS PHONE #: [phone] EXAM DATE: 07/31/2018 STATUS: REG ER FAX #: [phone] RAD #: D/C DT PAGE 2 Signed Report Patient Name: JESUS ASCENCIO Unit No: [id number] EXAMS: CPT CODE: [id number] CT ABD PELVIS W/CONT 07208 <Continued> Orig Print D/T: S: 07/31/2018 (0153) [facility] [place] NAME: JESUS ASCENCIO [address] [place] [address] Blvd PHYS: Jamil Wong MD [place], [place] [address] : 1955 AGE: 63 SEX: F LOC: B.BHARATH PHONE #: [phone] EXAM DATE: 07/31/2018 STATUS: REG ER FAX #: [phone] RAD #: D/C DT PAGE 3 Signed Report - CT ANGIO LOCVT3002-42-68 01:45:00 Patient Name: JESUS ASCENCIO Unit No: [id number] EXAMS: CPT CODE: [id number] CT ANGIO CHEST [address] DICTATION LOCATION: H48 HISTORY: Female, 63 years [...] Agency CTDI: 13.40 DLP: 550.52 Trnscrpt: (0145) Ines MARIANA Johnson NAME: JESUS ASCENCIO [address] [place] [address] PHYS: Jamil Wong MD [place] [address] : 1955 AGE: 63 SEX: F LOC: B.[address] [employer] PHONE #: [phone] EXAM DATE : 07/31/2018 STATUS: PRE ER FAX #: [phone] RAD #: D/C DT PAGE 1 Signed Report Patient Name: JESUS ASCENCIO Unit No: [id number] EXAMS: CPT CODE: [id number] CT ANGIO CHEST [address] < Continued> Orig Print D/T: S: 07/31/2018 (0148) MARIANA Johnson NAME: JESUS ASCENCIO [address] PHYS: Jamil Wong MD [place] [address] : 1955 AGE: 63 SEX: F LOC: [employer] [employer] PHONE #: [phone] EXAM DATE: 07/31/2018 STATUS: PRE ER FAX #: [phone] RAD #: D/C DT PAGE 2 Signed [...] hours if concentrations <2 NG/ML. B-TYPE NATRIURETIC OVGQKGF1301-38-19 01:30:00* Test Item Value Reference Range Interpretation Comments B-TYPE NATRIURETIC PEPTIDE (test code = BNP) < 30.00 PG/ML 0.00-100 .00 N - XR CHEST 1 [id number] 01:13:00 FAX: Jamil Aguillon MD [phone] [place]: St: PRE Patient Na me: ASCENCIOJANICEJESUSDAYANA COVARRUBIAS Unit No: [id number] EXAMS: CPT CODE: [id number] XR CHEST 1 V 81822 DICTATION LOCATION: H48 HISTORY: Female, 63 years [...] Alma Nair Transcribed Date/Time: 07/31/2018 (0113) By: Ines O rig Print D/T: S: 07/31/2018 (0116) MARIANA Johnson NAME: JESUS ASCENCIO MARCI [address] [place] [address] Blvd PHYS: Jamil [place], [place] [address] : 1955 AGE: 63 SEX: F LOC: B.ERS PHONE #: [phone] EXAM DATE: 07/31/2018 STATUS: PRE ER FAX #: [phone] RAD NO: DC Dt: PAGE 1 Signed Report [id number] 01:09:00* Test Item Value Reference Range Interpretation Comments LIPASE (test code = LIP) 72 Unit/L 114-286 L COMPREHENSIVE METABOLIC KCFBV0538-25-78 01:09:00* Test Item Value Reference Range Interpretation [...] NORMAL <50 MG Index/DL 1 NOR MAL EGAQJNML-P6547-53-12 01:09:00* Test Item Value Reference Range Interpretation [...] of temporal changes in troponin levelscharacteristic of NE. COMPREHENSIVE METABOLIC ITZRM4119-37-00 01:05:00* Test Item Value Reference Range Interpretation [...] NORMAL <50 MG Index/DL 1 NOR MAL HNNFDIKT-J9797-90-12 01:05:00* Test Item Value Reference Range Interpretation Comments TROPONIN-I (test code = TROPI) NG/ML 0.000-0.045 CBC W/AUTO AWSS2325-92-62 00:49:00* Test Item Value Reference Range Interpretation [...] 0.0-0.05 N - INJ W FLUOR EVAL YXVF6294-42-45 11:21:00 Name: JESUS ASCENCIO [facility]: 1955 Age/S: 63 / F [address] [facility] Unit #: [id number] Loc: [place] [address] Phys: Earl Rivera MD Acct: [id number] Dis Date: Status: [facility] PHONE #: [phone] Exam Date: 07/23/2018 1150 FAX #: [phone] Reason: PORT CHECK EXAMS: CPT CODE: [id number] INJ W FLUOR EVAL CVAD 00186 Fluoro Time: 48 DAP (Gy m2): 9150 [...] YOLI JOHNSON RT(R) Trnscb Date/Time: 07/29/2018 (1121) [place] Orig Print D/T: S: 07/29/2018 (1124) PAGE 1 Signed Report URINE AND [id number] 22:29:00* Test Item Value Reference Range Interpretation Comments UA Spec Grav (test code = UA Spec Grav) 1.026 1 [facility] RINDI9007-57-15 22:29:00Moderate *ABN*(07/09/18 5:29 PM)[facility] PSFDS3706-08-88 22:29:00* Test Item Value Reference Range Interpretation Comments UA pH (test code = UA pH) 6.0 1 5.0-8.0 [facility] MMXIU8191-70-52 22:29:00Negative (07/09/18 5:29 PM) [facility] YSFOH6911-03-05 22:29:00Negative *NA*(07/09/18 5:29 PM) [facility] DBFJD6300-80-06 22:29:001[facility] ZLCZZ3430-93-90 22:29:002[facility] MKKIO4288-48-22 22:29:00 Negative (07/09/18 5:29 PM)[facility] OGBIB2533-17-18 22:29:00 Yellow *NA*(07/09/18 5:29 PM)[facility] QFDRZ4181-00-79 22:29:00 Clear (07/09/18 5:29 PM)[facility] RSFNG3120-51-03 21:13:00 Negative (07/09/18 4:13 PM)[facility] BPCWW9527-91-11 21:13:0097 [facility] DKWUK8002-00-62 21:13:00>182[facility] YPQNI0093-59-09 21:13:00Large *ABN*(07/09/18 4:13 PM)[facility] KJUQZ1130-25-70 21:13:00Negative (07/09/18 4:13 PM)[facility] ZVLEO7384-22-36 21:13:00Negative *NA*(07/09/18 4:13 PM)[facility] SFZYX3243-49-56 21:13:00* Test Item Value Reference Range Interpretation Comments UA Spec Grav (test code = UA Spec Grav) 1.043 1 [facility] FODBD1078-22-08 21:13:00Marked *ABN*(07/09/18 4:13 PM) [facility] WDPKD2538-84-83 21:13:00* Test Item Value Reference Range Interpretation Comments UA pH (test code = UA pH) 6.0 1 5.0-8.0 [facility]CARDIAC COQHRJD1650-05-38 09:02:00<0.02[facility]annCHEM CPGRR6169-49-82 09:02:003.5[facility]annCHEM GPESL8900-45-48 09:02:002.5 [facility] TUCYG4250-75-07 09:02:000.3[facility]annCHEM PANEL 2018-07-09 09:02:000.1[facility]annCHE[facility] YOMEH2461-53-00 09:02:0083[facility]annCHE[facility] KNLOR0931-63-24 09:02:000.4[facility]annCHE[facility] BXVIT6620-27-30 09:02:0021[facility]annCHE[facility] XLRMK2665-34-25 09:02:003.0[facility]annCHE[facility] SYCEG4109-60-98 09:02:004.3[facility]annCHEM FUFXL3052-87-41 09:02:00* Test Item Value Reference Range Interpretation Comments A/G Ratio (test code = A/G Ratio) 0.7 1 0.7-1.6 [facility] LDNUL9071-43-64 09:02:0024[facility]annCHEM PANEL 2018-07-09 09:02:007.3[facility] XlojvfkTVZZWGVYCYLC6421-16-88 09:02:0012.5 [facility] HtclownPELZWEOVCYYC8831-16-73 09:02:0088[facility] HermannELECTROLYTES 2018-07-09 09:02:0024[facility] VgkyayuVELWFWVYNMPU0988-66-46 09:02:008.4[facility] ZcroepoJOIDLCFWASMW8672-19-25 09:02:003.5[facility] VlyoujmTTITFZYPTRMN0173-18-11 09:02:09882Kvtbtmqa BzsqhmiHVCGRFOCDJUL8106-31-87 09:02:000.74[facility] KTAWYPXGFYQY1510-43-34 09:02:54794Ttqannmu NvefeyvKXESJHBRCVAH2321-36-69 09:02:51719Paatobwz IfejuooEDSSZCXABYYR4651-24-76 09:02:0017[facility] ISNEYGSSNB1189-51-47 09:02:000.1[facility] ZqvilhmIIFLXVUNFS9647-90-92 09:02:000.4 [facility] BxhbvbjZUDRGTNLFB2472-55-96 09:02:001.0[facility]annHEMATOLOGY 2018-07-09 09:02:003.7[facility] ApseaknDIZLGPMYYN7055-70-25 09:02:002.5[facility] PrnnzpzBKGPFPDMJG6687-25-47 09:02:000.5[facility] QobppffILFEJRCVKW5807-40-86 09:02:0035.3[facility] ArkpfhtLMNLOXLHPL1621-42-72 09:02:006.8[facility] CMTVEEKAMA6079-61-66 09:02:006.1[facility] YmldwldCUNVPJKSSD5530-83-64 09:02:00 50.8[facility] FosmsgpUBEDAHASEH0540-34-38 09:02:008.2[facility] HermannHEMATOLOGY 2018-07-09 09:02:64269Uxueesdk OgjbzpmBAWERQCUEH5964-72-87 09:02:0095.2[facility] OsfnwxlDRVERTZLFT8530-61-36 09:02:00* Test Item Value Reference Range Interpretation Comments MCH (test code = MCH) 32.3 pg 27.0-31.0 [facility] VciacjeYVOEJSXDSO3063-15-76 09:02:0037.1[facility]annHEMATOLOGY 2018-07-09 09:02:0012.6[facility] UfqnjezHMJAKLNIOY6256-27-32 09:02:0033.9[facility] OtfitrhBPQAPSSFHQ8283-53-18 09:02:0013.8[facility] HkgqnihOXUTWSDWNF9718-32-46 09:02:007.2[facility] TrgubzaDFALCJQETC1987-98-56 09:02:003.90[facility] RDXELI7642-95-97 09:02:00* Test Item Value Reference Range Interpretation Comments VLDL (test code = VLDL) 28 1 [facility] YmuvphsNNCIBY4926-15-21 09:02:42936Oeweqxtl JrqyzmpKATNDS3168-60-01 09:02:50048Vmpdicax HkluoywZXOHMS8449-20-26 09:02:0050[facility] HermannLIPIDS 2018-07-09 09:02:97227Vemjrrql RhqdcguBRXNQN7493-64-16 09:02:00* Test Item Value Reference Range Interpretation Comments CHD Risk (test code = CHD Risk) 3.60 1 3.90-5.80 [facility]annCARDIAC HZDREVZ2948-02-56 05:16:00<0.02[facility]annCARDIAC ZCAWIYM2241-83-72 19:57:00<0.02[facility]annCARDIAC DVBLYIX9143-05-02 19:57:00<1.0[facility]annCARDIAC OUJLZAE5189-16-42 19:57:0096[facility] CARDIAC NFEJYXM7173-70-34 19:57:009[facility]CARD[facility]AC AREXHDS0499-17-34 19:57:00<1.0[facility]annCHEM NCZLZ7877-51-74 19:57:0066[facility]annCHEM RPWUO2724-07-95 19:57:0014[facility]annCHEM VMGCV6092-10-28 19:57:26942 [facility]annCHE[facility] SRYZT4875-28-18 19:57:0026[facility]annCHEM PANEL 2018-07-08 19:57:003.4[facility]annCHEM IWMJM6546-25-60 19:57:60274Jtnmeemo HermannCHEM WUGGN5522-38-23 19:57:004.9[facility]annCHEM XCCIO8770-62-19 19:57:00* Test Item Value Reference Range Interpretation Comments B/C Ratio (test code = B/C Ratio) 15 1 6-25 [facility]annCHE[facility] VVKJH0344-74-81 19:57:0091[facility]annCHEM PANEL 2018-07-08 19:57:000.2[facility]annCHEM VDCFI6038-45-25 19:57:009.4[facility]annCHEM SPBPX8239-25-02 19:57:00* Test Item Value Reference Range Interpretation Comments A/G Ratio (test code = A/G Ratio) 0.7 1 0.7-1.6 [facility] HermannCHEM XBSGJ6670-23-53 19:57:008.3[facility]annCHEM PANEL 2018-07-08 19:57:008.7[facility]annCHEM LRFQO2132-15-38 19:57:0019[facility]annCHEM AIGBH5672-62-19 19:57:003.4[facility] HermannCHEM QCXZP4340-62-26 19:57:0026[facility] HermannCHEM DBOBP2506-00-87 19:57:95367Tyloklal HermannCHEM ALKCY2380-92-87 19:57:000.93[facility] JmllfmpXXUHRKECWP0597-46-49 19:57:00* Test Item Value Reference Range Interpretation Comments PTT (test code = PTT) 30.1 s 22.9-35.8 [facility] DdayamnMVAFPCKEKC8668-27-55 19:57:00* Test Item Value Reference Range Interpretation Comments INR (test code = INR) 1.39 1 0.85-1.17 [facility] JzndbzwFNPMSCIXIX1883-56-21 19:57:00* Test Item Value Reference Range Interpretation Comments PT (test code = PT) 16.8 s 12.0-14.7 [facility] CjyhesiZNBKWLJQOZ3903-17-30 19:57:008.3[facility]annHEMATOLOGY 2018-07-08 19:57:46658Nyrezrwo MokavyrWSQRQUUQZN7800-61-85 19:57:0013.8[facility] FceorxuJHDRFCUXYP5056-89-90 19:57:0094.2[facility] WimxpebHCDXYPJCQM7786-22-32 19:57:0013.4[facility] QmmbvzcEPXQXVAUWL6548-45-96 19:57:0039.1[facility] GYBHYTZHRK9565-12-61 19:57:0034.2[facility] GqnpmiiTLNIOIEOXQ1881-00-16 19:57:00* Test Item Value Reference Range Interpretation Comments MCH (test code = MCH) 32.2 pg 27.0-31.0 [facility] AhujxpfIPMRMZSUMH3578-75-18 19:57:004.15[facility] HermannHEMATOLOGY 2018-07-08 19:57:0010.0[facility] TikxstbQESSLBTFPW9933-40-37 19:57:000.5[facility] JdlgoovLAWBLQRCBZ5187-95-46 19:57:006.2[facility] LuarenwHBZQCEEPNI9290-35-66 19:57:000.4[facility] IhxbkejDDPVXHRJAC1235-95-89 19:57:002.8[facility] ENSHYSOLGN6122-42-71 19:57:000.1[facility] MzuvdboFNFQXSVWQZ8530-72-72 19:57:00 28.2[facility] FfldzduNCFYYSFOUW2743-17-74 19:57:004.2[facility] HermannHEMATOLOGY 2018-07-08 19:57:000.7[facility] StnbfnrWZPQTGFIRL1042-13-98 19:57:0061.6[facility] FpybrtzVYBORQTBBC6499-06-79 19:57:005.3[facility] [place]- US ABDOMEN LTD 2018-06-30 03:12:00 Name: JESUS ASCENCIO [facility] : 1955 Age/S: 63 / F [address] [facility] Unit #: [id number] Loc: [place] [address] Phys: Yamilet Cross MD Acct: [id number] Dis Date: Status: REG ER PHONE #: [phone] Exam Date: 06/30/2018 0304 FAX #: [phone] Reason: right upper quadrant pain EXAMS: CPT CODE: [id number] US ABDOMEN LTD 01993 EXAM: - US ABDOMEN LTD HISTORY: Pain [...] Clair Hernadez RDMS Trnscb Date/Time: 06/30/2018 (311) t.GIANNIR.[email or web address] Orig Print D/T: S: 06/30/2018 (314) Probe: PAGE 1 Signed Report - CT ABD PELVIS W/CONT 2018-06-29 23:59:00 Name: JESUS ASCENCIO [facility] : 1955 Age/S: 63 / F [address] [facility] [address] Unit #: [id number] Loc: [place] [address] Phys: Yamilet Cross MD Acct: [id number] Dis Date: Status: REG ER PHONE #: [phone] Exam Date: 06/29/2018 2336 FAX #: [phone] Reason: ABDOMINAL PAIN, HISTORY OF COLON CANCER EXAMS: CPT CODE: [id number] CT ABD PELVIS W/CONT 85673 EXAM: - CT ABD PELVIS W/CONT HISTORY: [...] exam. IMPRESSION: No significant abnormalities demonstrated. at 6171 Reported and signed by: John Bermudez MD PAGE 1 Signed Report (CONTINUED) Name: JESUS ASCENCIO [facility] : 1955 Age/S: 63 / F [address] [facility] Unit #: [id number] Loc: [place] [address] Phys: Yamilet Cross MD Acct: [id number] Dis Date: Status: REG ER PHONE #: [phone] Exam Date: 06/29/2018 2336 FAX #: [phone] Reason: ABDOMINAL PAIN, HISTORY OF COLON CANCER EXAMS: CPT CODE: [id number] CT ABD PELVIS W/CONT 65843 < Continued> CC: Yamilet Cross MD Technologist:PAULIE MOISE RT(R),CT CTDI: DLP: Trnscb Date/Time: 06/29/2018 (2359) t.SDR.MKM4 Orig Print D/T: S: 06/30/2018 (0002) PAGE 2 Signed Report URINALYSIS SKZOAEYR3915-50-46 23:57:00* Test Item Value Reference Range Interpretation [...] NONE A Urine Source? Clean CatchBASIC METABOLIC ACXKM3519-60-56 23:00:00* Test Item Value Reference Range Interpretation [...] CA) 8.4 mg/dL 8.4-10.2 N HEPATIC FUNCTION MWUWJ3096-96-39 23:00:00* Test Item Value Reference Range Interpretation [...] code = ALKP) 91 U/L 38-126 N GONVNX4331-13-50 23:00:00* Test Item Value Reference Range Interpretation Comments LIPASE (test code = LIP) 73 U/L 128-270 L KEJGWNXXB7867-81-19 23:00:00* Test Item Value Reference Range Interpretation Comments MAGNESIUM (test code = MAG) 2.0 mg/dL 1.6-2.3 N CPK-MB GJXKGJU4670-88-63 23:00:00* Test Item Value Reference Range Interpretation Comments CREATINE KINASE (CK) (test code = CK) 90 U/L 26-192 N CKMB (test code = CKMBT) 0.9 ng/mL 0.0-5.0 N RELATIVE % INDEX (test code = REL%) 1.0 % UPCNWXHW-H9071-35-11 23:00:00* Test Item Value Reference Range Interpretation Comments TROPONIN-I (test code = TROPI) <0.015 ng/mL 0-0.045 N B-TYPE NATRIURETIC WLVVBOV5491-25-35 22:45:00* Test Item Value Reference Range Interpretation Comments B-TYPE NATRIURETIC PEPTIDE (test code = BNP) 15.8 pg/mL 0-100 N PROTHROMBIN IZLY3627-57-53 22:37:00* Test Item Value Reference Range Interpretation [...] (2.5-3.5) IS PATIENT ON ANTICOAGULANTS? NBASIC METABOLIC DOWKJ4467-97-71 22:35:00* Test Item Value Reference Range Interpretation [...] CA) 8.4 mg/dL 8.4-10.2 N HEPATIC FUNCTION HODRJ2757-30-02 22:35:00* Test Item Value Reference Range Interpretation [...] TOTAL (test code = ALKP) IUnit/L 45-117 DIWLOU1710-68-10 22:35:00* Test Item Value Reference Range Interpretation Comments LIPASE (test code = LIP) Unit/L 144-286 MTUMNBPTR4985-89-71 22:35:00* Test Item Value Reference Range Interpretation Comments MAGNESIUM (test code = MAG) mg/dL 1.8-2.4 CPK-MB UCFIAFB2749-92-25 22:35:00* Test Item Value Reference Range Interpretation Comments CREATINE KINASE (CK) (test code = CK) IUnit/L 26-208 CKMB (test code = CKMBT) ng/mL 0-6.0 RELATIVE % INDEX (test code = REL%) % OYVCBIHU-O1414-59-11 22:35:00* Test Item Value Reference Range Interpretation Comments TROPONIN-I (test code = TROPI) ng/mL 0-0.045 CBC W/O ZFNI6507-44-62 22:23:00* Test Item Value Reference Range Interpretation [...] fL 6.7-11.0 N - XR CHEST 1 C2141-19-11 21:47:00 Name: SONUJESUS [facility] : 1955 Age/S:63 /F [address] [facility] [facility] Unit#:[id number] Loc: [place] [address] Phys: Yamilet Cross MD Dis Date: PHONE #: [phone] Status: REG ER FAX #: [phone] Exam Date: 06/29/2018 Reason: CHEST PAIN EXAMS: CPT CODE: [id number] XR CHEST 1 V 92382 HISTORY: Chest pain. COMPARISON: October 18, 2017. No acute infiltrates, effusion or congestion is noted. Left Port-A-Cath is unchanged. Suboptimal inspiration. The cardiac and mediastinal silhouette are within normal limits. IMPRESSION: No acute infiltrates, effusion or congestion. at 8002 Reported and signed by: Maciej Felix M.D. CC: Yamilet Cross MD Technologist: PAULIE MOISE RT(R),CT Trnscrpt Data: 06/29/2018 (2146) t.SDR.TH4 Orig Print D/T: S: 06/29/2018 (961) PAGE 1 Signed R eport TISSUE [id number] 10:15:00Surgical Pathology Report Case: [id number] Authorizing Provider: Amrik Dale MD Collected: 06/03/2018 1533 Ordering Location: [facility] Received: 06/04/2018 0903 Pathologist: [...] OR DYSPLASIA Signing Pathologist Direct Phone Line: [phone] signed by Nanci Brown i, MD on 06/05/2018 at 10:15 [id number] X 3, 16805 X 2Hematemesis. Pr ocedure upper endoscopy A. [...] Immunohistochemistr y technical testing was performed at [facility] Pathology Laboratory where it was developed [...] to perform high complexity clinical laboratory testing.POCT-GLUCOSE [id number] 17:16:00* Test Item Value Reference Range Interpretation Comments POC-GLUCOSE METER (BEAKER) (test code = 1538) 97 mg/dL 70-110 TESTED AT [facility] [address] [facility] [address] POCT-GLUCOSE SBFPF0755-92-87 12:09:00* Test Item Value Reference Range Interpretation Comments POC-GLUCOSE METER (BEAKER) (test code = 1538) 106 mg/dL 70-110 TESTED AT [facility] [address] [facility] [address] POCT-GLUCOSE MGHES2038-93-25 05:36:00* Test Item Value Reference Range Interpretation Comments POC-GLUCOSE METER (BEAKER) (test code = 1538) 88 mg/dL 70-110 TESTED AT [facility] [address] [facility] [address] PROTHROMBIN TIME/CAB3009-85-46 03:39:00* Test Item Value Reference Range Interpretation [...] mechanical heart valves.CBC W/PLT COUNT & AUTO ATSOYQANEHAS6159-82-91 03:36:00* Test Item Value Reference Range Interpretation [...] code = 2801) 0 % 0-0 POCT-GLUCOSE AGHLQ8141-67-36 21:17:00* Test Item Value Reference Range Interpretation Comments POC-GLUCOSE METER (BEAKER) (test code = 1538) 145 mg/dL 70-110 H TESTED AT [facility] [id number] [place] [address] POCT-GLUCOSE FQPIW1366-90-75 16:29:00* Test Item Value Reference Range Interpretation Comments POC-GLUCOSE METER (BEAKER) (test code = 1538) 99 mg/dL 70-110 TESTED AT [facility] [id number] [place] [address] POCT-GLUCOSE [id number] 12:06:00* Test Item Value Reference Range Interpretation Comments POC-GLUCOSE METER (BEAKER) (test code = 1538) 193 mg/dL 70-110 H TESTED AT [facility] [id number] [place] [address] BASIC METABOLIC MBHVS6738-06-96 05:53:00* Test Item Value Reference Range Interpretation [...] CLINICAL DATA TO CALCULATE ESTIMATED GFR. PROTHROMBIN TIME/CII6132-10-19 05:44:00* Test Item Value Reference Range Interpretation [...] mechanical heart valves.CBC W/PLT COUNT & AUTO DQCGZKVTAKWV5852-14-78 05:35:00* Test Item Value Reference Range Interpretation [...] code = 2801) 0 % 0-0 POCT-GLUCOSE PLDMR5359-36-44 20:44:00* Test Item Value Reference Range Interpretation Comments POC-GLUCOSE METER (BEAKER) (test code = 1538) 123 mg/dL 70-110 H TESTED AT [facility] [address] [facility] [address] POCT-GLUCOSE HHCTC6727-91-40 16:40:00* Test Item Value Reference Range Interpretation Comments POC-GLUCOSE METER (BEAKER) (test code = 1538) 167 mg/dL 70-110 H TESTED AT [facility] [address] [facility] [address] POCT-GLUCOSE GPIUV2444-42-08 12:13:00* Test Item Value Reference Range Interpretation Comments POC-GLUCOSE METER (BEAKER) (test code = 1538) 135 mg/dL 70-110 H TESTED AT [facility] [address] [facility] [address] CBC W/PLT COUNT & AUTO BTHUGVHKBTLD8194-25-91 09:34:00* Test Item Value Reference Range Interpretation [...] code = 2801) 0 % 0-0 POCT-GLUCOSE TNNQM1107-33-38 05:36:00* Test Item Value Reference Range Interpretation Comments POC-GLUCOSE METER (BEAKER) (test code = 1538) 95 mg/dL 70-110 TESTED AT [facility] [address] [facility] [address] PROTHROMBIN TIME/[id number] 05:14:00* Test Item Value Reference Range Interpretation [...] for pat ients with mechanical heart valves.POCT-GLUCOSE [id number] 20:34:00* Test Item Value Reference Range Interpretation Comments POC-GLUCOSE METER (BEAKER) (test code = 1538) 118 mg/dL 70-110 H TESTED AT [facility] [address] [facility] [address] POCT-GLUCOSE QECNG9563-07-00 16:54:00* Test Item Value Reference Range Interpretation Comments POC-GLUCOSE METER (BEAKER) (test code = 1538) 88 mg/dL 70-110 TESTED AT [facility] [address] [facility] [address] POCT-GLUCOSE [id number] 11:30:00* Test Item Value Reference Range Interpretation Comments POC-GLUCOSE METER (BEAKER) (test code = 1538) 118 mg/dL 70-110 H TESTED AT [facility] [address] [facility] [address] POCT-GLUCOSE [id number] 05:26:00* Test Item Value Reference Range Interpretation Comments POC-GLUCOSE METER (BEAKER) (test code = 1538) 178 mg/dL 70-110 H TESTED AT [facility] [address] [facility] [address] BASIC METABOLIC [id number] 05:19:00* Test Item Value Reference Range Interpretation [...] CLINICAL DATA TO CALCULATE ESTIMATED GFR. PROTHROMBIN TIME/[id number] 05:04:00* Test Item Value Reference Range Interpretation [...] mechanical heart valves.CBC W/PLT COUNT & AUTO OYIDSITCZLIP7955-31-32 04:44:00* Test Item Value Reference Range Interpretation [...] code = 2801) 0 % 0-0 POCT-GLUCOSE [id number] 21:00:00* Test Item Value Reference Range Interpretation Comments POC-GLUCOSE METER (BEAKER) (test code = 1538) 91 mg/dL 70-110 TESTED AT [facility] [address] [facility] [address] POCT-GLUCOSE [id number] 17:08:00* Test Item Value Reference Range Interpretation Comments POC-GLUCOSE METER (BEAKER) (test code = 1538) 102 mg/dL 70-110 TESTED AT [facility] [address] [facility] [address] POCT-GLUCOSE [id number] 12:00:00* Test Item Value Reference Range Interpretation Comments POC-GLUCOSE METER (BEAKER) (test code = 1538) 98 mg/dL 70-110 TESTED AT [facility] [address] [facility] [address] BASIC METABOLIC [id number] 05:14:00* Test Item Value Reference Range Interpretation [...] DATA TO CALCULATE ESTIMATED GFR. BASIC METABOLIC [id number] 01:01:00* Test Item Value Reference Range Interpretation [...] INSUFFICIENT CLINICAL DATA TO CALCULATE ESTIMATED GFR. IPJSMS9027-11-17 01:00:00* Test Item Value Reference Range Interpretation Comments LIPASE (BEAKER) (test code = 749) 22 U/L 8-78 HEPATIC FUNCTION [id number] 01:00:00* Test Item Value Reference Range Interpretation [...] = 347) 11 U/L 6-50 LACTIC ACID, [id number] 00:53:00* Test Item Value Reference Range Interpretation Comments LACTATE BLOOD VENOUS (2) (BEAKER) (test code = 2872) 0.8 mmol/L 0 .5-2.2 Specimen slightly hemolyzed PT/[id number] 00:46:00* Test Item Value Reference Range Interpretation [...] mechanical heart valves.CBC W/PLT COUNT & AUTO QCWWDEWNHIBH7818-62-20 00:21:00* Test Item Value Reference Range Interpretation [...] - PELVIS, RENAL STONE EVAL, WITHOUT IV BHFOOALS3926-35-42 22:39:00 Reason for exam:->BACK PAINReason for exam:->DYSURIAFINAL [...] MDReport Verified Date/Time: 05/29/2018 22:39:39 Reading Location: [facility] C0X [facility] Consult Reading Room ALYSIS W/ REFLEX [...] /HPF SOURCE(BEAKER) (test code = 2795) Stool Kqflntxawbqh3926-77-72 06:17:00* Test Item Value Reference Range Interpretation Comments Stool Calprotectin (test code = 15553-1) <16 0-120 Results verified by repeat testingConcentration Interpretation Follow- Up<16 - 50 ug/g Normal None>50 -120 ug/g Borderline Re- evaluate in 4-6 weeks >120 ug/g Abnormal Repeat as clinically indicatedPerformed at: [facility] [id number] Director: Veena Martell MD, Phone: [phone] [facility] Ntgfyhazrinl5254-59-95 06:17:00* Test Item Value Reference Range Interpretation Comments Stool Calprotectin (test code = 20047-0) <16 0-120 Results verified by repeat testingConcentration Interpretation Follow- Up<16 - 50 ug/g Normal None>50 -120 ug/g Borderline Re- evaluate in 4-6 weeks >120 ug/g Abnormal Repeat as clinically indicatedPerformed at: [facility] [id number] Director: Veena Martell MD, Phone: [phone] Swlcprdxlsre4995-12-97 06:17:00* Test Item Value Reference Range Interpretation Comments Stool Calprotectin (test code = 60263-8) <16 0-120 Results verified by repeat testingConcentration Interpretation Follow- Up<16 - 50 ug/g Normal None>50 -120 ug/g Borderline Re- evaluate in 4-6 weeks >120 ug/g Abnormal Repeat as clinically indicatedPerformed at: - [facility] [id number] Director: Veena Martell MD, Phone: [phone] Hospitals of Southeast TexasUrine WBC 2018-04-02 08:35:00* Test Item Value Reference Range Interpretation Comments Urine WBC (test code = 5821-4) 0-5 0-5 [facility] [id number] 08:35:00* Test Item Value Reference Range Interpretation Comments Urine RBC (test code = 34758-3) 0-5 0-5 [facility] Vtttsjef7280-26-63 08:35:00* Test Item Value Reference Range Interpretation Comments Urine Bacteria (test code = 55982-9) FEW NONE [facility] Epithelial Koxjh5165-51-87 08:35:00 * Test Item Value Reference Range Interpretation Comments Urine Epithelial Cells (test code = 81295-2) FEW NONE [facility] Vggxr4797-00-59 08:04:00* Test Item Value Reference Range Interpretation Comments Urine Color (test code = 5778-6) YELLOW YELLOW [facility] Dejyuwp3968-28-36 08:04:00* Test Item Value Reference Range Interpretation Comments Urine Clarity (test code = 23513-4) SL CLOUDY CLEAR [facility] Texas[facility] Specific Rdvorbs6198-85-94 08:04:00 * Test Item Value Reference Range Interpretation Comments Urine Specific [place] (test code = 5811-5) 1.025 1.010-1.02 5 [facility] dK4442-59-56 08:04:00* Test Item Value Reference Range Interpretation Comments Urine pH (test code = 06028-2) 6 5-7 [facility] Leukocyte Vxwzubci2617-38-56 08:04:00* Test Item Value Reference Range Interpretation Comments Urine Leukocyte Esterase (test code = 5799-2) NEGATIVE NEGATIVE [facility] Aivtbih4381-90-41 08:04:00* Test Item Value Reference Range Interpretation Comments Urine Nitrite (test code = 39513-7) NEGATIVE NEGATIVE [facility] Avrxodu3242-10-06 08:04:00* Test Item Value Reference Range Interpretation Comments Urine Protein (test code = 5804-0) NEGATIVE NEGATIVE [facility] Glucose (UA)2018-04-02 08:04:00* Test Item Value Reference Range Interpretation Comments Urine Glucose (UA) (test code = 2349-9) NEGATIVE NEGATIVE [facility] Nmomsjs0543-21-08 08:04:00* Test Item Value Reference Range Interpretation Comments Urine Ketones (test code = 44578-2) 2+ NEGATIVE H [facility] Qwshgjmmvdbq8589-74-69 08:04:00* Test Item Value Reference Range Interpretation Comments Urine Urobilinogen (test code = 20118-1) 0.2 0.2-1 [facility] Pxuvuixey0194-18-16 08:04:00* Test Item Value Reference Range Interpretation Comments Urine Bilirubin (test code = 1978-6) NEGATIVE NEGATIVE [facility] Hkzqe8545-96-87 08:04:00* Test Item Value Reference Range Interpretation Comments Urine Blood (test code = 99175-3) 1+ NEGATIVE H [facility] Fnppliq9804-13-24 21:54:00* Test Item Value Reference Range Interpretation Comments Bedside Glucose (test code = 45195-7) 102 70-120 Meter ID: [id number] Level 2018-04-01 06:25:00* Test Item Value Reference Range Interpretation Comments Sodium Level (test code = 2951-2) 136 136-145 [facility] Yiepo7095-51-87 06:25:00* Test Item Value Reference Range Interpretation Comments Potassium Level (test code = 2823-3) 3.7 3.5-5.1 [facility]lor[facility] Lmcsa3072-47-12 06:25:00* Test Item Value Reference Range Interpretation Comments Chloride Level (test code = 2075-0) 106 98-107 [facility] Dioxide Tluwl4821-78-67 06:25:00* Test Item Value Reference Range Interpretation Comments Carbon Dioxide Level (test code = 2028-9) 22 22-29 [facility] TexasAnion Dao3714-38-88 06:25:00* Test Item Value Reference Range Interpretation Comments Anion Gap (test code = 36669-1) 11.7 8-16 [facility] TexasBlood Urea Eshsqoer2212-13-96 06:25:00* Test Item Value Reference Range Interpretation Comments Blood Urea Nitrogen (test code = 3094-0) 9 7-26 [facility] TexasCreatinine2019-02-11 06:25:00* Test Item Value Reference Range Interpretation Comments Creatinine (test code = 2160-0) 0.69 0.57-1.11 [facility] TexasBUN/Creatinine Assby7627-20-67 06:25:00* Test Item Value Reference Range Interpretation Comments BUN/Creatinine Ratio (test code = 3097-3) 13 6-25 [facility] TexasEstimat Glomerular Filtration Rate 2018-04-01 06:25:00* Test Item Value Reference Range Interpretation Comments Estimat Glomerular Filtration Rate (test code = 120140187) > 60 >60 Ranges were taken from the National Kidney Disease Education Program and the [facility] literature.Reference ranges:60 or greater: Uuxmuc72-03 ( for 3 consecutive months): Chronic kidney disease 15 or less: Kidney failureBaptist Hospitals of Southeast TexasGlucose Zbgpc4555-94-36 06:25:00* Test Item Value Reference Range Interpretation Comments Glucose Level (test code = DEW3343) 95 74-118 [facility] TexasCalcium Wpuec6164-95-24 06:25:00* Test Item Value Reference Range Interpretation Comments Calcium Level (test code = 34538-0) 8.1 8.4-10.2 L [facility] TexasTotal Udrxzcbew4961-35-95 06:25:00* Test Item Value Reference Range Interpretation Comments Total Bilirubin (test code = 1975-2) 0.2 0.2-1.2 [facility] TexasAspartate Amino Transf (AST/SGOT) 2018-04-01 06:25:00* Test Item Value Reference Range Interpretation Comments Aspartate Amino Transf (AST/SGOT) (test code = Aspartate Amino Transf (AST/SGOT)) 17 5-34 [facility] TexasAlanine Aminotransferase (ALT/SGPT) 2018-04-01 06:25:00* Test Item Value Reference Range Interpretation Comments Alanine Aminotransferase (ALT/SGPT) (test code = 1742-6) 15 0-55 [facility] TexasTotal Ozzybmh2734-43-61 06:25:00* Test Item Value Reference Range Interpretation Comments Total Protein (test code = 2885-2) 6.4 6.5-8.1 L [facility] TexasAlbumin2019-02-11 06:25:00* Test Item Value Reference Range Interpretation Comments Albumin (test code = 1751-7) 2.9 3.5-5.0 L [facility] TexasGlobulin2019-02-11 06:25:00* Test Item Value Reference Range Interpretation Comments Globulin (test code = 57832-9) 3.5 2.3-3.5 [facility] TexasAlbumin/Globulin Qynxv7437-73-42 06:25:00 * Test Item Value Reference Range Interpretation Comments Albumin/Globulin Ratio (test code = 1759-0) 0.8 0.8-2.0 [facility] TexasAlkaline Bptivuadrnf1150-07-25 06:25:00* Test Item Value Reference Range Interpretation Comments Alkaline Phosphatase (test code = 6768-6) 65 40-150 [facility] TexasWhite Blood Fjdjj8005-87-96 05:55:00* Test Item Value Reference Range Interpretation Comments White Blood Count (test code = 6690-2) 6.38 4.8-10.8 [facility] TexasRed Blood Ztvnc3026-52-11 05:55:00* Test Item Value Reference Range Interpretation Comments Red Blood Count (test code = 789-8) 3.73 3.6-5.1 [facility] TexasHemoglobin2019-02-11 05:55:00* Test Item Value Reference Range Interpretation Comments Hemoglobin (test code = 00306-0) 11.7 12.0-16.0 L [facility] TexasHematocrit2019-02-11 05:55:00* Test Item Value Reference Range Interpretation Comments Hematocrit (test code = 4544-3) 35.9 34.2-44.1 [facility] TexasMean Corpuscular Xvryel1590-79-54 05:55:00* Test Item Value Reference Range Interpretation Comments Mean Corpuscular Volume (test code = 787-2) 96.2 81-99 [facility] TexasMean Corpuscular Xxifeovbpn4676-72-46 05:55:00* Test Item Value Reference Range Interpretation Comments Mean Corpuscular Hemoglobin (test code = 785-6) 31.4 28-32 [facility] Hem[facility] Concent 2018-04-01 05:55:00* Test Item Value Reference Range Interpretation Comments Mean Corpuscular Hemoglobin Concent (test code = 786-4) 32.6 31-35 [facility] TexasRed Cell Distribution Bwbgo6741-95-68 05:55:00* Test Item Value Reference Range Interpretation Comments Red Cell Distribution Width (test code = 11228-4) 12.7 11.7 -14.4 [facility] TexasPlatelet Btivl9403-02-62 05:55:00* Test Item Value Reference Range Interpretation Comments Platelet Count (test code = 777-3) 217 140-360 [facility] TexasNeutrophils (%) (Auto)2018-04-01 05:55:00 * Test Item Value Reference Range Interpretation Comments Neutrophils (%) (Auto) (test code = 81448-7) 49.3 38.7-80.0 [facility] TexasLymphocytes (%) (Auto)2018-04-01 05:55:00 * Test Item Value Reference Range Interpretation Comments Lymphocytes (%) (Auto) (test code = 736-9) 38.4 18.0-39.1 [facility] TexasMonocytes (%) (Auto)2018-04-01 05:55:00* Test Item Value Reference Range Interpretation Comments Monocytes (%) (Auto) (test code = 5905-5) 6.3 4.4-11.3 [facility] TexasEosinophils (%) (Auto)2018-04-01 05:55:00 * Test Item Value Reference Range Interpretation Comments Eosinophils (%) (Auto) (test code = 713-8) 5.2 0.0-6.0 [facility] TexasBasophils (%) (Auto)2018-04-01 05:55:00* Test Item Value Reference Range Interpretation Comments Basophils (%) (Auto) (test code = 706-2) 0.6 0.0-1.0 [facility] TexasIM GRANULOCYTES %2018-04-01 05:55:00* Test Item Value Reference Range Interpretation Comments IM GRANULOCYTES % (test code = IM GRANULOCYTES %) 0.2 0.0- 1.0 [facility] TexasNeutrophils # (Auto)2018-04-01 05:55:00* Test Item Value Reference Range Interpretation Comments Neutrophils # (Auto) (test code = 751-8) 3.2 2.1-6.9 [facility] TexasLymphocytes # (Auto)2018-04-01 05:55:00* Test Item Value Reference Range Interpretation Comments Lymphocytes # (Auto) (test code = 43355-0) 2.5 1.0-3.2 [facility] TexasMonocytes # (Auto)2018-04-01 05:55:00* Test Item Value Reference Range Interpretation Comments Monocytes # (Auto) (test code = 742-7) 0.4 0.2-0.8 [facility] TexasEosinophils # (Auto)2018-04-01 05:55:00* Test Item Value Reference Range Interpretation Comments Eosinophils # (Auto) (test code = 711-2) 0.3 0.0-0.4 [facility] TexasBasophils # (Auto)2018-04-01 05:55:00* Test Item Value Reference Range Interpretation Comments Basophils # (Auto) (test code = 704-7) 0.0 0.0-0.1 [facility] TexasAbsolute Immature Granulocyte (auto 2018-04-01 05:55:00* Test Item Value Reference Range Interpretation Comments Absolute Immature Granulocyte (auto (sidney t code = Absolute Immature Granulocyte (auto) 0.01 0-0.1 [facility] TexasClostridium Difficile Toxin A & B 2018-03-31 14:58:00* Test Item Value Reference Range Interpretation Comments Clostridium Difficile Toxin A & B (test code = 886178125) NEGATIVE NEGATIVE Testing on stool aspirate specimens is outside gas blender claims since specime n type not validated on this assay.[facility] Clostridium Difficile Toxin A & T6117-20-38 14:58:00* Test Item Value Reference Range Interpretation Comments Clostridium Difficile Toxin A & B (test code = 617569453) NEGATIVE NEGATIVE Testing on stool aspirate specimens is outside gas blender claims since specime n type not validated on this assay.[facility] Clostridium Difficile Toxin A & Q8358-79-41 14:58:00* Test Item Value Reference Range Interpretation Comments Clostridium Difficile Toxin A & B (test code = 251919374) NEGATIVE NEGATIVE Testing on stool aspirate specimens is outside gas blender claims since specime n type not validated on this assay.[facility] Clostridium Difficile Toxin A & I0209-52-66 14:58:00* Test Item Value Reference Range Interpretation Comments Clostridium Difficile Toxin A & B (test code = 070314977) NEGATIVE NEGATIVE Testing on stool aspirate specimens is outside gas blender claims since specime n type not validated on this assay.[facility] Prothrombin Rxfd3178-32-71 06:23:00* Test Item Value Reference Range Interpretation Comments Prothrombin Time (test code = 5902-2) 14.4 11.9-14.5 [facility] TexasProthromb Time International Ratio 2018-03-31 06:23:00* Test Item Value Reference Range Interpretation Comments Prothromb Time International Ratio (test code = 6301-6) 1.03 Oral Anticoagulant Therapy INR Values:1. Low Intensity Therapy 1.5 - 2.02 . Moderate Intensity Therapy 2.0 - 3.03. High Intensity Therapy(1) 2.5 - 3. 54. High Intensity Therapy(2) 3.0 - 4.05. Panic Value INR > 5.[address] [facility] Lactoferrin (LAB)2018-03-30 18:58:00* Test Item Value Reference Range Interpretation Comments Stool Lactoferrin (LAB) (test code = 36379-5) NEGATIVE NEGATIVE Testing on stool aspirate specimens is outside gas blender claims since specime n type not validated on this assay.[facility] Lactoferrin (LAB)2018-03-30 18:58:00* Test Item Value Reference Range Interpretation Comments Stool Lactoferrin (LAB) (test code = 95240-7) NEGATIVE NEGATIVE Testing on stool aspirate specimens is outside gas blender claims since specime n type not validated on this assay.[facility] Lactoferrin (LAB)2018-03-30 18:58:00* Test Item Value Reference Range Interpretation Comments Stool Lactoferrin (LAB) (test code = 33523-6) NEGATIVE NEGATIVE Testing on stool aspirate specimens is outside gas blender claims since specime n type not validated on this assay.[facility] Lactoferrin (LAB)2018-03-30 18:58:00* Test Item Value Reference Range Interpretation Comments Stool Lactoferrin (LAB) (test code = 83685-4) NEGATIVE NEGATIVE Testing on stool aspirate specimens is outside gas blender claims since specime n type not validated on this assay.[facility] TexasLactic Acid Pxwcb4528-17-17 04:13:00* Test Item Value Reference Range Interpretation Comments Lactic Acid Level (test code = Lactic Acid Level) 8.5 4.5- 19.8 [facility] TexasLactic Acid Lgfvg6707-33-80 04:13:00* Test Item Value Reference Range Interpretation Comments Lactic Acid Level (test code = Lactic Acid Level) 8.5 4.5- 19.8 [facility] TexasLactic Acid Bcxck6628-78-18 04:13:00* Test Item Value Reference Range Interpretation Comments Lactic Acid Level (test code = Lactic Acid Level) 8.5 4.5- 19.8 [facility] TexasLactic Acid Nmppx3230-40-66 04:13:00* Test Item Value Reference Range Interpretation Comments Lactic Acid Level (test code = Lactic Acid Level) 8.5 4.5- 19.8 [facility] TexasTriglycerides Rqdne5789-69-36 17:29:00* Test Item Value Reference Range Interpretation Comments Triglycerides Level (test code = 2571-8) 88 0-149 [facility] TexasCholesterol Jwjav2139-70-83 17:29:00* Test Item Value Reference Range Interpretation Comments Cholesterol Level (test code = 2093-3) 176 0-199 Less than 200 mg/dL Low Uduc778 - 239 mg/dL Borderline Rizc281 m g/dl and greater High Risk [facility] TexasLDL Yugafjunvgx6083-88-21 17:29:00* Test Item Value Reference Range Interpretation Comments LDL Cholesterol (test code = 2089-1) 106 60-130 [facility] TexasHDL Oghbqbhteuj9170-41-30 17:29:00* Test Item Value Reference Range Interpretation Comments HDL Cholesterol (test code = 2085-9) 52 40-60 [facility] TexasCholesterol/HDL Xiyfj5222-94-20 17:29:00 * Test Item Value Reference Range Interpretation Comments Cholesterol/HDL Ratio (test code = 9830-1) 3.4 3.0-3.6 [facility] TexasHemoglobin A1c Xcnnjzc4096-78-94 17:20:00 * Test Item Value Reference Range Interpretation Comments Hemoglobin A1c Percent (test code = Hemoglobin A1c Percent) 7.2 4.0-7.0 H [facility] TexasHemoglobin A1c Vozylvb9296-03-25 17:20:00 * Test Item Value Reference Range Interpretation Comments Hemoglobin A1c Percent (test code = Hemoglobin A1c Percent) 7.2 4.0-7.0 H [facility] TexasHemoglobin A1c Izcltoo3164-86-10 17:20:00 * Test Item Value Reference Range Interpretation Comments Hemoglobin A1c Percent (test code = Hemoglobin A1c Percent) 7.2 4.0-7.0 H [facility] TexasHemoglobin A1c Ooljgvc0252-87-43 17:20:00 * Test Item Value Reference Range Interpretation Comments Hemoglobin A1c Percent (test code = Hemoglobin A1c Percent) 7.2 4.0-7.0 H [facility] TexasCT ABDOMEN/PELVIS F4780-41-54 16:57:00 [facility] [address] [address] Patient Name: JESUS ASCENCIO MR #: [id number] : 1955 Age/Sex: 63/F Req #: [id number] Adm Physician: NIKKO OCONNOR MD Ordered by: ARGELIA FRAGA MD Report #: [id number] Location: [facility] Room/Bed: [place] [address] Procedure: [id number] CT/CT ABDOMEN/PELVIS W Exam Date: Exam Time: REPORT STATUS: Signed EXAMINATION: CT of t abdomen and pelvis with contrast. TECHNIQUE: Spiral [...] 17 02 Transcribed By: DARION on 03/28/18 1702 COPY TO: ARGELIA FRAGA MD Qcxloh2141-58-02 14:54:00* Test Item Value Reference Range Interpretation Comments Lipase (test code = 3040-3) [facility] TexasLipase2019-02-07 14:54:00* Test Item Value Reference Range Interpretation Comments Lipase (test code = 3040-3) [facility] TexasABDOMEN-1VIEW (KUB)2018-03-28 13:22:00 [address] [address] Patient Name: JESUS ASCENCIO MR #: [id number] : 1955 Age/Sex: 63/F Req #: [id number] Adm Physician: Ordered by: ARGELIA FRAGA MD Report #: [id number] Location: ER Room/Bed: Procedure: [id number] DX/AB IFEANYI (KISHAN) Exam Date: 03/28/18 Exam Time: 130 0 [...] 1325 Transcribed By: DARION on 03/28/18 1325 [employer] Y TO: ARGELIA FRAGA MD CT ABDOMEN/PELVIS A7216-30-59 11:46:00 [address] [address] Patient Name: JESUS ASCENCIO MR #: [id number] : 1955 Age/Sex: 62/F Req #: [id number] Adm Physician: Ordered by: TONYA ALANIS MD Report #: [id number] Location: [facility] [place]/Bed: Procedure: [id number] CT/CT A BDOMEN/PELVIS W Exam Date: 12/28/17 [...] 1153 Transcribed By: DARION on 12/28/17 1153 [employer] Y TO: TONYA ALANIS MD CT CHEST A0081-32-22 11:40:00 [address] [address] Patient Name: JESUS ASCENCIO MR #: [id number] : 1955 Age/Sex: 62/F Req #: [id number] Adm Physician: Ordered by: TONYA ALANIS MD Report #: [id number] Location: [facility] [place] o[place]/Bed: Procedure: [id number] CT/CT C HEST W Exam Date: 12/28/17 [...] COPY TO: TONYA ALANIS MD Phenytoin (Dilantin) Fxcoy8082-81-00 10:11:00* Test Item Value Reference Range Interpretation Comments Phenytoin (Dilantin) Level (test code = 3968-5) 13.41 10-20 [facility] TexasPhenytoin (Dilantin) Ykias4556-71-54 10:11:00* Test Item Value Reference Range Interpretation Comments Phenytoin (Dilantin) Level (test code = 3968-5) 13.41 10-20 [facility] TexasCHES 2 QMYBV3157-84-85 09:55:00 [facility] [address] [address] Patient Name: JESUS ASCENCIO MR #: [id number] : 1955 Age/Sex: 62/F Req #: [id number] Adm Physician: Ordered by: TONYA ALANIS MD Report #: [id number] Location: [facility]/Bed: Procedure: [id number] DX/CHES T 2 VIEWS Exam Date: 12/28/17 [...] TO: Tobias ALANIS MD Activated Partial Thromboplast Pdor1531-34-40 09:25:00* Test Item Value Reference Range Interpretation Comments Activated Partial Thromboplast Time (test code = 12459-7) 31.9 23.8-35.5 [facility] TexasCreatine Kinase PB0784-46-82 09:09:00* Test Item Value Reference Range Interpretation Comments Creatine Kinase MB (test code = 18499-8) 0.70 0-5.0 [facility] TexasTroponin R7954-68-58 09:09:00* Test Item Value Reference Range Interpretation Comments Troponin I (test code = OYH2938) 0.001 0-0.300 [facility] TexasMagnesium Akypu3840-41-50 09:02:00* Test Item Value Reference Range Interpretation Comments Magnesium Level (test code = 12358-8) 2.3 1.3-2.1 H [facility] TexasCreatine Mllwkd1523-88-99 09:02:00* Test Item Value Reference Range Interpretation Comments Creatine Kinase (test code = 2157-6) 118 29-168 [facility] TexasURINE AND GWFVL1687-28-82 02:30:00 Negative *NA*(05/28/16 9:30 PM)[facility] UVEEB8521-17-72 02:30:00 Large *ABN*(05/28/16 9:30 PM)[facility] AZOZW5589-91-07 02:30:00 Marked *ABN*(05/28/16 9:30 PM)[facility] WMPOO2500-65-66 02:30:00 Yellow *NA*(05/28/16 9:30 PM)[facility] KFKIF5465-45-32 02:30:00 1.018[facility] EUBIO7834-87-55 02:30:006.0[facility] PBIVK9289-08-68 02:30:0010[facility] EUDCK7634-44-21 02:30:00 >182[facility] DJABA0368-02-33 02:30:00Positive *ABN*(05/28/16 9:30 PM)[facility] MFSSF9905-45-34 02:30:00Large *ABN*(05/28/16 9:30 PM)[facility]annCARDIAC NJMYURR7256-03-92 23:19:00<0.02[facility] CARDIAC DRBXKPB9887-97-10 23:19:59786Gzslqtmh HermannCARDIAC AMDGRMR1492-10-15 23:19:001.8[facility]annCARDIAC UHXTLBI1282-52-21 23:19:001.3[facility] CHEM ANPQT0384-26-87 23:19:0070[facility]annCHEM XXNTF9569-78-93 23:19:0015 [facility]annCHEM VRAQG6587-56-04 23:19:0021[facility]annCHEM PANEL 2016-05-28 23:19:003.4[facility]annCHEM NOSNW8679-89-20 23:19:007.8[facility]annCHEM XEJTI7297-75-86 23:19:008.6[facility]annCHEM HLPLN6585-19-16 23:19:000.8[facility]annCHEM WMRXO4241-17-90 23:19:0017.3[facility]annCHEM GLVSN2001-99-30 23:19:004.4[facility]annCHEM HUUNB2521-47-32 23:19:0024 [facility]annCHEM KFOUL9260-95-05 23:19:000.3[facility]annCHEM PANEL 2016-05-28 23:19:0090[facility] HermannCHEM BZIPP5970-14-89 23:19:67176Raxrqzzh HermannCHEM VKWEJ2877-01-67 23:19:003.3[facility] HermannCHEM SXZJU2255-70-45 23:19:60138Hlxvbbqu HermannCHEM GRKQI5544-20-20 23:19:90126Cdbvfifd HermannCHEM BNLAY4788-58-47 23:19:0023[facility] HermannCHEM ZVCXD0541-84-78 23:19:000.90 [facility]annCHEM ZOGUF2835-82-02 23:19:0022[facility]annCHEM PANEL 2016-05-28 23:19:0083[facility] RmehpkcBKUCAYPHGO9646-14-12 23:19:0013.3[facility] HvmdmtwVKRNRVCJML1082-18-39 23:19:27557Tgbuqxtk CgoljsgYHKUIJYXZK8558-04-49 23:19:008.2[facility] EtxgaxcKKZLJCGZRK4286-00-87 23:19:0034.2[facility] BBZVVQROSS3210-73-18 23:19:00* Test Item Value Reference Range Interpretation Comments MCH (test code = MCH) 31.6 pg 27.0-31.0 [facility] JwkfnovOEEABVRPCT4969-69-47 23:19:0013.3[facility] HermannHEMATOLOGY 2016-05-28 23:19:0092.4[facility] NsphvyrMMYXIEVPLR5052-61-83 23:19:0038.9[facility] XnkvzvhEIJLXNKLTZ9794-23-96 23:19:004.21[facility] LwxajqyNAWIENAPXE3382-12-93 23:19:009.3[facility] AecdofwJVPRDLYZCP5186-63-33 23:19:001.05[facility] NTRKHOYUZS8884-26-84 23:19:00* Test Item Value Reference Range Interpretation Comments PT (test code = PT) 13.9 s 12.0-14.7 [facility] EjlkfviVDYQFXFEMW1162-57-24 23:19:00* Test Item Value Reference Range Interpretation Comments PTT (test code = PTT) 29.9 s 22.9-35.8 [facility] RzmyctfNWUDELUKPD7916-39-23 23:19:000.9[facility]annHEMATOLOGY 2016-05-28 23:19:002.9[facility] OwlbqriXPVJVSKFVP7708-27-65 23:19:004.7[facility] JwiqbwiDMYQORPZBE6894-52-43 23:19:005.4[facility] QktqvlaDRACGOXJVR2921-25-12 23:19:000.4[facility] VtvnxgqUTRUOJPKWA8783-00-00 23:19:000.1[facility] WXDLONHPEO1641-84-23 23:19:000.5[facility] SqpwmncXXIKBVOQOR4187-10-38 23:19:00 57.8[facility] DogsmweXHSFELZGQC2009-21-95 23:19:0031.0[facility]annHEMATOLOGY 2016-05-28 23:19:005.6[facility] InxhbqeYMJMVWXVB1069-50-74 22:30:47228Owxowdvn IlcfpulRSMGZUROU8750-30-44 22:29:0039[facility] PkhdgprKXUZOWQTR2948-96-50 22:29:00<0.02[facility] VpubpcfRABCXASWG8510-30-02 22:29:0010[facility] OYWEAIIFD6351-04-56 22:29:28326Wjjdweld DixpxfcKQBKHQMCF5441-18-59 22:29:0018 [facility] GvpfgajEVRYEIPTV1094-79-70 22:29:0095[facility]annCHEMISTRY 2011-07-14 22:29:0025[facility] UzsupeyJTMBYRLNP7261-81-06 22:29:009.0[facility] XebrcmmFBLRCJHCS7818-58-94 22:29:000.7[facility] RegnonyJVVJLYMXU8983-55-97 22:29:67184Optncbcx MmyrtkmQCEJUCFIW8837-00-36 22:29:004.2[facility] ZUROMYEPB0333-80-23 22:29:0016.2[facility] OmfdakoGUSRZHZIH7378-01-39 22:29:00< 0.003[facility] GefmgxwCQWLVJURL3464-23-81 22:29:00<3[facility]annHEMATOLOGY 2011-07-14 22:29:38477Gozicmhj PkuofwvEGXYYTRVGU3374-73-66 22:29:0013.1[facility] RgrmdakTZZQMARDID3263-40-15 22:29:0034.3[facility] DtxwcelOUZVFAFPXS7332-48-63 22:29:008.0[facility] OxpokzkENAJEKFXZS1243-99-07 22:29:0013.6[facility] JJNLBPTNMN6240-36-48 22:29:00* Test Item Value Reference Range Interpretation Comments MCH (test code = MCH) 31.7 pg 27.0-31.0 H [facility] KcphvecCJMTGMLNLB4245-33-70 22:29:0092.5[facility]annHEMATOLOGY 2011-07-14 22:29:0039.7[facility] VxqlssjIMCFTKTILS1334-61-74 22:29:004.29[facility] PzswvlvQIBTCHLKNP0830-91-53 22:29:0014.1[facility] CwnpjtdPJBZYMSBXG0107-17-11 22:29:000.93[facility] DditnotIQDQQHJVUF6503-26-43 22:29:00* Test Item Value Reference Range Interpretation Comments PTT (test code = PTT) 22.9 s 22.9-35.8 N [facility] RxajodaXSEGQVGFUZ8337-25-37 22:29:00* Test Item Value Reference Range Interpretation Comments PT (test code = PT) 12.5 s 12.0-14.7 N [facility] NrwodfkZWXRYAYMTE6317-82-47 22:29:00Normal (07/14/2011 17:29:00) [facility] QbgcolkGVCZHETOZL3999-63-33 22:29:00Normal (07/14/2011 17:29:00) [facility] WwmbzuuAFKHXDZUIY8451-31-76 22:29:0010.5[facility] HermannHEMATOLOGY 2011-07-14 22:29:002.9[facility] ThxngamQEPGKTCWTA3520-22-89 22:29:000.0[facility] KxnumsrWVAJPWQUFW0551-56-61 22:29:000.2[facility] GrpcmzxAWAEHPQAJP5534-02-93 22:29:000.0[facility] BzeaqbcXXCXPBNHEF6682-87-41 22:29:001.6[facility] PERMXZKLDT6654-89-02 22:29:003.9[facility] SiaribjNAGAMATHAG4512-35-19 22:29:00 20.3[facility] LykoyioOKMWFMGVPC2353-70-72 22:29:000.5[facility] HermannHEMATOLOGY 2011-07-14 22:29:0074.2[facility] QmlmrblEDLQBOUWLY0836-40-98 21:52:00Negative *NA*(07/14/2011 16:52:00) [facility]
[2019-10-27 06:41] LABS: CREATINE KINASE MB 0.8 ng/mL (0-5.0)
[2019-10-27] MEDS: SODIUM CHLORIDE 0.9% 1000ML 1,000 ML IV SCH ×2 (06:51→16:28)
[2019-10-27] MEDS: INSULIN REGULAR, HUMAN 100 UNIT/1 ML 3ML VIAL SQ SCH ×4 (07:46→21:00)
--- NOTE | 2019-10-27 07:47 | NUR ---
pt states no appetite and no food tray. cannot given insulin until pt able to eat and tray available for pt safty.
[2019-10-27 08:20] VITALS: BP 100/50
--- NOTE | 2019-10-27 08:20 | NUR ---
Pt received from ER at this time. Pt is aox4 and able to verbalize needs. Pt is able to ambulate. She come to the floor with IV fluids that are running to left subclavian portacath. Breaths are even and unlabored.
[2019-10-27 08:33] VITALS: BP 100/56
--- NOTE | 2019-10-27 09:00 | NUR ---
Pt complaining pain to abdomen. Pt has no pain medications ordered at this time. Called Dr. Randhawa for new orders and states he will order pain medications when he is here to see patient.
[2019-10-27 10:06] LABS: CREATINE KINASE MB 0.8 ng/mL (0-5.0)
--- NOTE | 2019-10-27 10:33 | NUR ---
Received call from Lab with lactic acid of 2.6. Dr. Randhawa here to see the patient and make him aware.
[2019-10-27] MEDS ORDERED: NON-FORMULARY MEDICATION (Ondansetron Hcl* (Zofran*) 4 MG) PO PRN (11:45)
[2019-10-27] MEDS ORDERED: ZOLPIDEM TARTRATE 10 MG TAB PO PRN (11:45)
[2019-10-27] MEDS ORDERED: ENOXAPARIN SOD INJ 40 MG/0.4 ML SYR SC SCH (11:45)
[2019-10-27] MEDS: ENOXAPARIN SOD INJ 60 MG/0.6 ML SYR SC SCH ×2 (12:14→21:03)
[2019-10-27] MEDS: HYDROCODONE/APAP 10MG-325MG TAB PO PRN ×3 (12:14→21:53)
--- NOTE | 2019-10-27 12:14 | History and Physical ---
PRIMARY CARE PHYSICIAN: Nito Gee MD. CLASSIFIED ADVERTISING MANAGER: Dr. Jordan Lehman. CHIEF COMPLAINT: Abdominal pain, fever, some rectal bleed, and shortness of breath with pneumonia. HISTORY OF PRESENT ILLNESS: The patient is a 64-year-old female, chronically ill, has a history of recurrent pulmonary embolism and DVT. The patient has stopped her anticoagulant therapy because she thought that she may need endoscopy when she follows up with Dr. Jordan Lehman, her fishery biologist. However, she did not follow up, but she ended up in the hospital. Here in the hospital, the patient had a CT of the abdomen and pelvis done, showed sign of pneumonia in the basilar area of the lung. The patient was started on antibiotics. Lactic acid level was elevated at 3.9. The patient received IV fluids, antibiotic aggressively, and the lactic acid now 2.6. The patient also had abdominal pain. She stated that there was some blood in her stool; however, her hemoglobin and hematocrit are stable at 13.3 and 40.4. The patient complained of left-sided abdominal pain and also increasing shortness of breath. The patient is otherwise stable, however. PAST MEDICAL HISTORY: Obesity. History of colon cancer with partial resection and colostomy and then subsequent reversal of colostomy. The patient has coronary artery disease with previous PR. Seizure disorder, migraine, chronic anemia, DVT, pulmonary embolism, COPD, chronic opioid dependency, hypertension, diabetes type 2, migraine headaches. She has coronary stent placement. PAST SURGICAL HISTORY: Port-A-Cath. Partial colon resection for colon cancer with colostomy and subsequent reversal of colostomy. SOCIAL HISTORY: The patient does not smoke or use alcohol. No regular drugs. ALLERGIES: TO CEFTRIAXONE AND PROMETHAZINE. HOME MEDICATIONS: On [place], Lantus insulin, magnesium oxide, Zofran, pantoprazole, Paxil, phenobarbital, phenytoin, warfarin, Zoloft, and Ambien. PHYSICAL EXAMINATION: VITAL SIGNS: Temperature is 102.4, blood pressure 97/50, pulse rate is 87, respirations 19. GENERAL: The patient is not in acute distress now. HEENT: Normocephalic and atraumatic. Pupils are reactive. Anicteric. NECK: Supple grossly. PULMONARY: Diminished breath sounds at bases. No wheezing. Positive rales. CARDIOVASCULAR: S1 and S2. Regular rate and rhythm. ABDOMEN: Soft, generalized discomfort and tenderness with some guarding, but no rebound. EXTREMITIES: No cyanosis or edema. NEUROLOGIC: No gross focal deficit. LABORATORY DATA: Sodium is 137, potassium 3.5, chloride 104, bicarb 19, BUN 16, creatinine 0.7, glucose 134. WBC is 9.8, hemoglobin 13.3, hematocrit 40.4, and platelets is 275. Liver enzyme is normal. CT scan abdomen and pelvis showed bibasilar pneumonia. Lactic acid level is 3.9. IMPRESSION: 1. Severe sepsis on admission with lactic acidosis and fever. 2. Bibasilar pneumonia. 3. Urinary tract infection with glucosuria. Urinalysis showed that the patient has moderate bacteria. 4. Recent stopping anticoagulant therapy with history of deep venous thrombosis and pulmonary embolism. 5. Abdominal pain as mentioned above. PLAN: IV antibiotics. Consultation with Gastroenterology. Resume some home medication. Lovenox. Pain control. Replace electrolytes. Repeat lab work. We will monitor the patient closely. Of note, her COVID-19 serology test is negative. MD EVERARDO Morin/JOEL /[id number]
[2019-10-27] MEDS ORDERED: ENOXAPARIN SOD INJ 60 MG/0.6 ML SYR SC SCH (12:15)
[2019-10-27 12:25] VITALS: BP 93/54
--- NOTE | 2019-10-27 13:12 | Diagnostic Imaging Report ---
EXAM: CT Chest WITHOUT contrast INDICATION: SEPSIS/PNEUMONIA COMPARISON: CT of the abdomen and pelvis on 10/27/2019. TECHNIQUE: Chest was scanned utilizing a multidetector helical scanner from the lung apex through the level of the adrenal glands without administration of IV contrast. Absence of intravenous contrast decreases sensitivity for detection of lymphadenopathy and vascular pathology. Coronal and sagittal reformations were obtained. Routine protocol was performed. IV CONTRAST: None COMPLICATIONS: None RADIATION DOSE: Total DLP: 665.34 mGy*cm Estimated effective dose: (DLP x 0.014 x size factor) mSv CTDIvol has been reviewed. It is below the limits set by the Radiation Protocol Committee (RPC). Dose modulation, iterative reconstruction, and/or weight based adjustment of the mA/kV was utilized to reduce the radiation dose to as low as reasonably achievable. FINDINGS: LINES/ TUBES: Left chest wall Port-A-Cath which terminates in the distal SVC. LUNGS AND AIRWAYS: There is layering linear opacity in the dependent aspect of both lung bases with superimposed atelectasis. Airways are normal. PLEURA: The pleural spaces are clear. HEART AND MEDIASTINUM: The thyroid gland is normal. No mediastinal, hilar or axillary lymphadenopathy. The heart is normal in size. There is no pericardial effusion. UPPER ABDOMEN: The liver is diffusely hypodense, compatible with hepatic steatosis. Status post cholecystectomy. The imaged upper abdomen is otherwise unremarkable. BONES: There are degenerative changes in the thoracic spine. SOFT TISSUES: Unremarkable. IMPRESSION: 1. Layering linear opacity in the dependent aspect of both lung bases with superimposed atelectasis. This finding is new since same day CT of the abdomen/pelvis and may represent atelectasis and/or aspiration. 2. Hepatic steatosis. Signed by: Gloria Toussaint MD on 10/27/2019 1:09 PM
[2019-10-27] MEDS: PIPER-TAZ 3.375 GM 50 ML IV SCH ×2 (13:30→21:51)
[2019-10-27] MEDS: ONDANSETRON HCL 4 MG ORAL DISINTEGRATING TAB PO PRN (15:01)
[2019-10-27 15:56] VITALS: BP 94/49
[2019-10-27] MEDS: PHENAZOPYRIDINE HCL 100 MG TAB PO SCH (16:27)
[2019-10-27] MEDS: PHENOBARBITAL 30 MG TAB PO SCH (16:27)
[2019-10-27 20:23] VITALS: BP 88/48
[2019-10-27] MEDS: INSULIN GLARGINE 100 UNITS/ML VIAL SC SCH (21:00)
[2019-10-27] MEDS: PHENYTOIN SODIUM EXT REL 100 MG CAP PO SCH (21:03)
[2019-10-27] MEDS ORDERED: BISACODYL 5 MG TAB EC PO ONE ×3 (21:15→22:15)
[2019-10-27] MEDS ORDERED: CITRATE OF MAGNESIA 300ML BOTTLE PO ONE (23:30)
[2019-10-28] VITALS (9 sets, daily range): BP systolic 124–145; BP diastolic 62–68
[2019-10-28] MEDS ORDERED: CITRATE OF MAGNESIA 300ML BOTTLE PO ONE ×2 (05:00→07:45)
[2019-10-28] MEDS: ONDANSETRON HCL 4 MG ORAL DISINTEGRATING TAB PO PRN (05:30)
[2019-10-28] MEDS: HYDROCODONE/APAP 10MG-325MG TAB PO PRN ×2 (05:30→22:22)
[2019-10-28] MEDS: PIPER-TAZ 3.375 GM 50 ML IV SCH ×3 (05:43→22:30)
[2019-10-28 07:09] LABS: BASOPHILS # (AUTO) 0.1 (0.0-0.1); BASOPHILS % 0.6 % (0.0-1.0); EOSINOPHILS # (AUTO) 0.2 (0.0-0.4); EOSINOPHILS % 2.5 % (0.0-6.0); HEMATOCRIT 34.6 % (34.2-44.1); HEMOGLOBIN 11.3 g/dL (12.0-16.0); LYMPHOCYTES # (AUTO) 1.2 (1.0-3.2); MEAN CORPUSCULAR HEMOGLOBIN 31.9 pg (28-32); MEAN CORPUSCULAR HGB CONC 32.7 g/dL (31-35); MEAN CORPUSCULAR VOLUME 97.7 fL (81-99); MONOCYTES # (AUTO) 0.4 (0.2-0.8); MONOCYTES % 4.2 % (4.4-11.3); NEUTROPHILS # (AUTO) 6.7 (2.1-6.9); NEUTROPHILS % 78.5 % (38.7-80.0); PLATELET COUNT 163 x10e3/uL (140-360); RED BLOOD COUNT 3.54 x10e6/uL (3.6-5.1); RED CELL DISTRIBUTION WIDTH 12.9 % (11.7-14.4)
[2019-10-28] MEDS: INSULIN REGULAR, HUMAN 100 UNIT/1 ML 3ML VIAL SQ SCH ×4 (07:30→21:00)
[2019-10-28 07:36] LABS: ALANINE AMINOTRANSFERASE 60 IU/L (0-55); ALBUMIN 3.4 g/dL (3.5-5.0); ALBUMIN/GLOBULIN RATIO 1.1 (0.8-2.0); ALKALINE PHOSPHATASE 74 IU/L (40-150); ANION GAP 13.4 mmol/L (8-16); BLOOD UREA NITROGEN 10 mg/dL (7-26); BUN/CREATININE RATIO 13 (6-25); CALCIUM 7.6 mg/dL (8.4-10.2); CARBON DIOXIDE 16 mmol/L (22-29); CHLORIDE 110 mmol/L (98-107); CREATININE, SERUM 0.76 mg/dL (0.57-1.11); EST GLOMERULAR FILTRATION RATE > 60 ML/MIN (60-); GLUCOSE 153 mg/dL (74-118); POTASSIUM 3.4 mmol/L (3.5-5.1); SODIUM 136 mmol/L (136-145)
[2019-10-28] MEDS: PHENOBARBITAL 30 MG TAB PO SCH ×2 (08:07→18:01)
[2019-10-28] MEDS: PHENAZOPYRIDINE HCL 100 MG TAB PO SCH ×3 (08:07→18:01)
[2019-10-28] MEDS: SODIUM CHLORIDE 0.9% 1000ML 1,000 ML IV SCH (08:07)
[2019-10-28] MEDS: PHENYTOIN SODIUM EXT REL 100 MG CAP PO SCH ×2 (08:08→21:00)
[2019-10-28] MEDS: MAGNESIUM OXIDE 400 MG TAB PO SCH (08:08)
[2019-10-28] MEDS: PAROXETINE HCL 20 MG TAB PO SCH (08:08)
[2019-10-28] MEDS: SERTRALINE HCL 50 MG TAB PO SCH (08:08)
[2019-10-28] MEDS: ENOXAPARIN SOD INJ 60 MG/0.6 ML SYR SC SCH ×2 (08:08→21:00)
[2019-10-28] MEDS ORDERED: PANTOPRAZOLE SOD 40 MG TABEC PO SCH (09:00)
--- NOTE | 2019-10-28 12:29 | Operative Report ---
DATE OF PROCEDURE: 10/28/2019 SURGEON: Jordan Lehman MD PROCEDURES: EGD with esophageal dilatation and biopsies and a colonoscopy with fulguration of AVM and polypectomy. ADDITIONAL REFERRING PHYSICIAN: Nito Gee MD. INDICATIONS FOR EGD: Dysphagia, acid reflux. INDICATIONS FOR COLONOSCOPY: Rectal bleeding, lower abdominal pain, personal history of colon cancer. MEDICATIONS: The patient was done under MAC, please see anesthesiologist's note. PROCEDURE IN DETAIL: With the patient in the left lateral decubitus position, a flexible fiberoptic Olympus gastroscope was introduced into the esophagus under direct visualization without any difficulty. There was some patchy erythema noted in distal esophagus. A minute tongue of velvety red mucosa was noted to extend proximally from the GE junction that was biopsied to rule out Nunez's. The esophagus was dilated to size 52-Italian Sahu. The scope was then advanced with ease into the stomach. Mucosa overlying the antrum and the body revealed some patchy erythema and low-grade to moderate edema, and biopsies were obtained and sent to stain for H. pylori. A moderate amount of retained undigested food stuff was noted in the stomach precluding visualization of the proximal body as well as partially in the fundus. Pylorus was of normal contour and shape, was intubated with ease and the scope was advanced all the way to the second portion of the duodenum. Biopsies were obtained from the proximal second portion and the duodenal bulb to rule out sprue. The scope was then withdrawn back into the stomach and retroflexed, and the retained food stuff partially occluded visualization of the fundus, but whatever was visualized of the fundus and the cardia appeared to be within normal limits. The scope was then straightened out, it was subsequently withdrawn, and the patient tolerated the procedure well. IMPRESSION: 1. Distal esophagitis, mild. 2. Rule out Nunez's esophagus. 3. Esophagus dilated to size 52-Italian Sahu. 4. Reflecting some degree of gastroparesis. 5. Gastritis, biopsied, biopsies sent to stain for Helicobacter pylori. 6. Rule out sprue. PLAN: Follow up histology. Initiate Protonix 40 mg one p.o. q.a.m. before meals. The patient might benefit from a repeat EGD later electively on an outpatient basis to optimally visualize the body of the stomach and the fundus. The patient was then turned around and after adequate lubrication of the anal canal, a flexible fiberoptic Olympus colonoscope was inserted into the rectum with ease and advanced all the way to the cecum. Mucosa overlying the cecum appeared to be within normal limits. An arteriovenous malformation was noted in the ascending colon that was fulgurated with size 10-Italian Gold Probe. A minute polyp was hot biopsied from the transverse colon. Diverticular disease was noted to involve the distal descending and the sigmoid colon. Anastomotic site was noted at approximately 25 cm from the anal verge without obvious recurrence. The rectum appeared to be within normal limits. The scope was then retroflexed into the distal rectum and moderate-sized internal hemorrhoids were noted, none of which was actively bleeding. The scope was then straightened out, it was subsequently withdrawn, and the patient tolerated the procedure well. IMPRESSION: 1. Arteriovenous malformation, ascending colon, fulgurated with size 10-Italian Gold Probe. 2. Transverse colon polyp, hot biopsied. 3. Diverticulosis. 4. Anastomosis at approximately 25 cm of the anal verge without obvious recurrence. 5. Internal hemorrhoids, none actively bleeding. PLAN: Follow up histology. Initiate high-fiber, low-fat diet. Initiate high-fiber supplement. The patient might benefit from a followup colonoscopy in 3 years. Jordan Lehman MD [facility] [place] /[id number] cc: MD Nito Morin MD
[2019-10-28] MEDS: METOCLOPRAMIDE HCL 10 MG/2ML VIAL IV SCH ×2 (13:07→18:02)
[2019-10-28] MEDS: PANTOPRAZOLE 40 MG 10ML VIAL IV SCH ×2 (13:07→21:00)
[2019-10-28] MEDS: DICYCLOMINE HCL 10 MG CAP PO SCH ×2 (14:17→21:00)
[2019-10-28] MEDS: HYDROCORTISONE ACETATE 25 MG/SUPP.RECT SUPP RC SCH (18:01)
[2019-10-28] MEDS ORDERED: PROPOFOL IV EMULSION 10 MG/ML 20 ML VIAL ONE (18:27)
[2019-10-28] MEDS ORDERED: LIDOCAINE HCL 2% LOCAL INJ 5 ML SDV VIAL INJ ONE (18:27)
[2019-10-28] MEDS ORDERED: MIDAZOLAM HCL 2 MG/2 ML VIAL ONE (18:31)
[2019-10-28] MEDS: INSULIN GLARGINE 100 UNITS/ML VIAL SC SCH (21:00)
[2019-10-29] VITALS (8 sets, daily range): BP systolic 116–164; BP diastolic 63–86
[2019-10-29] MEDS: PIPER-TAZ 3.375 GM 50 ML IV SCH ×3 (06:00→21:30)
[2019-10-29] MEDS: METOCLOPRAMIDE HCL 10 MG/2ML VIAL IV SCH ×4 (06:00→17:55)
[2019-10-29] MEDS: INSULIN REGULAR, HUMAN 100 UNIT/1 ML 3ML VIAL SQ SCH ×4 (07:30→21:30)
[2019-10-29] MEDS ORDERED: IOPAMIDOL 300MG/ML 100 ML INFUS..BTL IV ONE (08:33)
[2019-10-29] MEDS: PAROXETINE HCL 20 MG TAB PO SCH (08:51)
[2019-10-29] MEDS: PANTOPRAZOLE 40 MG 10ML VIAL IV SCH ×2 (08:51→21:30)
[2019-10-29] MEDS: MAGNESIUM OXIDE 400 MG TAB PO SCH (08:51)
[2019-10-29] MEDS: SERTRALINE HCL 50 MG TAB PO SCH (08:51)
[2019-10-29] MEDS: HYDROCORTISONE ACETATE 25 MG/SUPP.RECT SUPP RC SCH ×2 (08:51→17:00)
[2019-10-29] MEDS: ENOXAPARIN SOD INJ 60 MG/0.6 ML SYR SC SCH ×2 (08:51→21:30)
[2019-10-29] MEDS: PHENAZOPYRIDINE HCL 100 MG TAB PO SCH ×3 (08:51→17:54)
[2019-10-29] MEDS: PHENOBARBITAL 30 MG TAB PO SCH ×2 (08:51→17:54)
[2019-10-29] MEDS: PHENYTOIN SODIUM EXT REL 100 MG CAP PO SCH ×2 (08:51→21:30)
[2019-10-29] MEDS: DICYCLOMINE HCL 10 MG CAP PO SCH ×3 (08:51→21:30)
[2019-10-29] MEDS: HYDROCODONE/APAP 10MG-325MG TAB PO PRN ×2 (09:03→18:02)
[2019-10-29] MEDS: SODIUM CHLORIDE 0.9% 1000ML 1,000 ML IV SCH ×3 (09:12→15:31)
[2019-10-29] MEDS ORDERED: LIDOCAINE HCL 1% LOCAL INJ 20 ML VIAL ONE (09:13)
[2019-10-29] MEDS ORDERED: POTASSIUM CHLORIDE 10MEQ EA PO ONE (09:45)
--- NOTE | 2019-10-29 10:06 | Diagnostic Imaging Report ---
Left subclavian port evaluation History: Malfunctioning left chest port. Modality: Fluoroscopy Sedation: None Fluoroscopy Time: 1.1 min. Reference Air Kerma (Ka, r): 7.94 mGy. Approach: Via indwelling left subclavian chest port Estimated blood loss: < 5 cc. Specimen: None. beater operator: Spenser Lofton MD. Pump Attendant: None. TECHNIQUE/FINDINGS: Initial manager floral images demonstrate malpositioned indwelling access needle with tip terminate within the subcutaneous tissues adjacent to the chest port reservoir. The existing needle was removed. The left chest was prepped and draped in sterile fashion. 1% lidocaine was used for local anesthesia. A new 19-gauge x 1 in. Chiba needle was advanced into the chest port. After access, the port easily aspirated. Contrast was injected confirming patent and intact left subclavian chest port catheter without evidence for extravasation. The catheter was flushed. A sterile dressing was applied. Impression: Chest port evaluation demonstrates malpositioned indwelling access needle. The port was reaccessed and contrast injection confirms patent port catheter without evidence for abnormality. The port was left accessed and ready for immediate use. Signed by: Dr. Spenser Lofton MD on 10/29/2019 10:03 AM
--- NOTE | 2019-10-29 10:06 | Diagnostic Imaging Report ---
Left subclavian port evaluation History: Malfunctioning left chest port. Modality: Fluoroscopy Sedation: None Fluoroscopy Time: 1.1 min. Reference Air Kerma (Ka, r): 7.94 mGy. Approach: Via indwelling left subclavian chest port Estimated blood loss: < 5 cc. Specimen: None. squaring shear operator: Spenser Lofton MD. Electrician Maintenance: None. TECHNIQUE/FINDINGS: Initial arm rest builder images demonstrate malpositioned indwelling access needle with tip terminate within the subcutaneous tissues adjacent to the chest port reservoir. The existing needle was removed. The left chest was prepped and draped in sterile fashion. 1% lidocaine was used for local anesthesia. A new 19-gauge x 1 in. Chiba needle was advanced into the chest port. After access, the port easily aspirated. Contrast was injected confirming patent and intact left subclavian chest port catheter without evidence for extravasation. The catheter was flushed. A sterile dressing was applied. Impression: Chest port evaluation demonstrates malpositioned indwelling access needle. The port was reaccessed and contrast injection confirms patent port catheter without evidence for abnormality. The port was left accessed and ready for immediate use. Signed by: Dr. Spenser Lofton MD on 10/29/2019 10:03 AM
[2019-10-29] MEDS: ONDANSETRON HCL 4 MG ORAL DISINTEGRATING TAB PO PRN (12:44)
[2019-10-29 13:31] LABS: PROTHROMBIN TIME 13.7 seconds (11.9-14.5)
[2019-10-29] MEDS: WARFARIN SOD 5 MG TAB PO SCH (17:54)
--- NOTE | 2019-10-29 19:10 | NUR ---
Patient visited in room during nursing rounds. Patient alert and oriented x3. Ambulatory in room prn. On IVF (NS at 75ml/hr) connected to accessed left upper chest port-a-cath. Patient has intermittent abdominal pain and will be medicated accordingly. Call judd within reach. Will monitor closely.
[2019-10-29] MEDS: INSULIN GLARGINE 100 UNITS/ML VIAL SC SCH (21:30)
[2019-10-30] VITALS (7 sets, daily range): BP systolic 108–136; BP diastolic 65–96
[2019-10-30] MEDS: ONDANSETRON HCL 4 MG ORAL DISINTEGRATING TAB PO PRN (00:07)
[2019-10-30] MEDS ORDERED: DICYCLOMINE HCL 10 MG CAP PO STA (02:45)
[2019-10-30] MEDS ORDERED: ONDANSETRON HCL INJ 2MG/ML 2ML 2 MG/ML VIAL IV PRN (03:00)
[2019-10-30] MEDS: SODIUM CHLORIDE 0.9% 1000ML 1,000 ML IV SCH (03:38)
[2019-10-30] MEDS ORDERED: ONDANSETRON HCL INJ 2MG/ML 2ML 2 MG/ML VIAL IV SCH (04:00)
[2019-10-30] MEDS: PIPER-TAZ 3.375 GM 50 ML IV SCH ×3 (06:15→22:00)
[2019-10-30] MEDS: METOCLOPRAMIDE HCL 10 MG/2ML VIAL IV SCH ×4 (06:15→18:21)
[2019-10-30 06:46] LABS: BASOPHILS % 0.5 % (0.0-1.0); EOSINOPHILS # (AUTO) 0.1 (0.0-0.4); EOSINOPHILS % 1.5 % (0.0-6.0); HEMATOCRIT 34.1 % (34.2-44.1); HEMOGLOBIN 11.4 g/dL (12.0-16.0); LYMPHOCYTES # (AUTO) 1.7 (1.0-3.2); LYMPHOCYTES % 23.5 % (18.0-39.1); MEAN CORPUSCULAR HEMOGLOBIN 30.7 pg (28-32); MEAN CORPUSCULAR HGB CONC 33.4 g/dL (31-35); MEAN CORPUSCULAR VOLUME 91.9 fL (81-99); MONOCYTES # (AUTO) 0.6 (0.2-0.8); MONOCYTES % 7.8 % (4.4-11.3); NEUTROPHILS # (AUTO) 4.9 (2.1-6.9); NEUTROPHILS % 66.4 % (38.7-80.0); PLATELET COUNT 184 x10e3/uL (140-360); RED BLOOD COUNT 3.71 x10e6/uL (3.6-5.1); RED CELL DISTRIBUTION WIDTH 12.6 % (11.7-14.4)
[2019-10-30 07:05] LABS: BILIRUBIN,URINE NEGATIVE (NEGATIVE); CLARITY,URINE CLEAR (CLEAR); COLOR,URINE YELLOW (YELLOW); KETONES,URINE 2+ (NEGATIVE); LEUKOCYTE ESTERASE ,URINE NEGATIVE (NEGATIVE); NITRITE,URINE POSITIVE (NEGATIVE); PROTEIN,URINE DIPSTICK NEGATIVE (NEGATIVE); URINE UROBILINOGEN 1 mg/dL (0.2 - 1)
[2019-10-30 07:08] LABS: INR 1.22
[2019-10-30 07:14] LABS: BACTERIA,URINE RARE /HPF; EPITHELIAL CELLS,URINE FEW /LPF; RBC,URINE 0-5 /HPF (0-5); WBC,URINE (MAN) 0-5 /HPF (0-5)
[2019-10-30 07:19] LABS: ALANINE AMINOTRANSFERASE 41 IU/L (0-55); ALBUMIN 3.3 g/dL (3.5-5.0); ALKALINE PHOSPHATASE 92 IU/L (40-150); ANION GAP 15.3 mmol/L (8-16); BLOOD UREA NITROGEN < 5 mg/dL (7-26); CALCIUM 7.6 mg/dL (8.4-10.2); CARBON DIOXIDE 19 mmol/L (22-29); CHLORIDE 106 mmol/L (98-107); CREATININE, SERUM 0.67 mg/dL (0.57-1.11); EST GLOMERULAR FILTRATION RATE > 60 ML/MIN (60-); GLUCOSE 81 mg/dL (74-118); POTASSIUM 3.3 mmol/L (3.5-5.1); SODIUM 137 mmol/L (136-145)
[2019-10-30 07:29] LABS: BUN/CREATININE RATIO 7 (6-25)
[2019-10-30] MEDS: INSULIN REGULAR, HUMAN 100 UNIT/1 ML 3ML VIAL SQ SCH ×4 (07:30→21:00)
[2019-10-30] MEDS ORDERED: POTASSIUM CHLORIDE 10MEQ EA PO ONE (09:20)
[2019-10-30] MEDS: PHENOBARBITAL 30 MG TAB PO SCH ×2 (09:41→15:42)
[2019-10-30] MEDS: PANTOPRAZOLE 40 MG 10ML VIAL IV SCH ×2 (09:41→22:00)
[2019-10-30] MEDS: PHENAZOPYRIDINE HCL 100 MG TAB PO SCH ×3 (09:41→15:42)
[2019-10-30] MEDS: DICYCLOMINE HCL 10 MG CAP PO SCH ×5 (09:41→22:00)
[2019-10-30] MEDS: PAROXETINE HCL 20 MG TAB PO SCH (09:42)
[2019-10-30] MEDS: MAGNESIUM OXIDE 400 MG TAB PO SCH (09:42)
[2019-10-30] MEDS: PHENYTOIN SODIUM EXT REL 100 MG CAP PO SCH ×2 (09:42→22:00)
[2019-10-30] MEDS: ENOXAPARIN SOD INJ 60 MG/0.6 ML SYR SC SCH ×2 (09:43→22:00)
[2019-10-30] MEDS: SERTRALINE HCL 50 MG TAB PO SCH (09:43)
[2019-10-30] MEDS: HYDROCORTISONE ACETATE 25 MG/SUPP.RECT SUPP RC SCH ×2 (09:43→16:49)
[2019-10-30] MEDS: ONDANSETRON HCL INJ 2MG/ML 2ML 2 MG/ML VIAL IV SCH ×3 (09:47→22:00)
[2019-10-30] MEDS: HYDROCODONE/APAP 10MG-325MG TAB PO PRN ×3 (10:08→22:00)
[2019-10-30] MEDS: WARFARIN SOD 5 MG TAB PO SCH (16:49)
--- NOTE | 2019-10-30 19:50 | NUR ---
report given to oncoming nurse. walking rounds complete.
--- NOTE | 2019-10-30 20:05 | NUR ---
Patient visited in room during nursing rounds. Patient alert and oriented x3. Ambulatory in room prn. On scheduled IV antibiotic treatment. Pt has an accessed left upper chest port-a-cath. Patient has intermittent abdominal pain and will be medicated accordingly. Call judd within reach. Will monitor closely.
[2019-10-30] MEDS: INSULIN GLARGINE 100 UNITS/ML VIAL SC SCH (22:00)
[2019-10-30] MEDS ORDERED: SODIUM CHLORIDE 0.9% 250ML 250 ML ONE (22:03)
[2019-10-31] VITALS (8 sets, daily range): BP systolic 119–145; BP diastolic 71–93
[2019-10-31] MEDS: METOCLOPRAMIDE HCL 10 MG/2ML VIAL IV SCH ×2 (00:15→06:15)
[2019-10-31] MEDS: HYDROCODONE/APAP 10MG-325MG TAB PO PRN ×4 (02:29→22:33)
[2019-10-31] MEDS: MECLIZINE HCL 12.5 MG TAB PO SCH ×3 (06:15→21:26)
[2019-10-31] MEDS: ONDANSETRON HCL INJ 2MG/ML 2ML 2 MG/ML VIAL IV SCH ×2 (06:15→06:23)
[2019-10-31] MEDS: PIPER-TAZ 3.375 GM 50 ML IV SCH ×3 (06:15→21:26)
[2019-10-31 06:35] LABS: INR 1.97; PROTHROMBIN TIME 23.4 seconds (11.9-14.5)
[2019-10-31] MEDS: INSULIN REGULAR, HUMAN 100 UNIT/1 ML 3ML VIAL SQ SCH ×4 (07:30→21:26)
[2019-10-31] MEDS: PHENOBARBITAL 30 MG TAB PO SCH ×2 (08:43→18:05)
[2019-10-31] MEDS: PHENYTOIN SODIUM EXT REL 100 MG CAP PO SCH ×2 (08:43→21:26)
[2019-10-31] MEDS: PHENAZOPYRIDINE HCL 100 MG TAB PO SCH (08:43)
[2019-10-31] MEDS: PANTOPRAZOLE 40 MG 10ML VIAL IV SCH ×2 (08:44→21:26)
[2019-10-31] MEDS: DICYCLOMINE HCL 10 MG CAP PO SCH ×3 (08:44→21:26)
[2019-10-31] MEDS: MAGNESIUM OXIDE 400 MG TAB PO SCH (08:44)
[2019-10-31] MEDS: PAROXETINE HCL 20 MG TAB PO SCH (08:45)
[2019-10-31] MEDS: ENOXAPARIN SOD INJ 60 MG/0.6 ML SYR SC SCH (08:45)
[2019-10-31] MEDS: HYDROCORTISONE ACETATE 25 MG/SUPP.RECT SUPP RC SCH ×2 (08:45→18:06)
[2019-10-31] MEDS ORDERED: ONDANSETRON HCL INJ 2MG/ML 2ML 2 MG/ML VIAL IV PRN (08:45)
[2019-10-31] MEDS: SERTRALINE HCL 50 MG TAB PO SCH (08:45)
[2019-10-31] MEDS: SENNOSIDES 8.6 MG TAB PO SCH ×2 (11:21→17:00)
[2019-10-31] MEDS: METOCLOPRAMIDE HCL 10 MG TAB PO SCH ×3 (11:56→21:26)
[2019-10-31] MEDS: WARFARIN SOD 5 MG TAB PO SCH (18:09)
--- NOTE | 2019-10-31 19:00 | NUR ---
Resumed care of patient. Patient awake and resting in bed, respirations even and unlabored on room air, no s/s of distress at this time. Bed locked and in lowest position, side rails up x3, call light placed within reach. Patient instructed to call for assistance if needed, verbalized understanding. All safety measures in place.
[2019-10-31] MEDS: INSULIN GLARGINE 100 UNITS/ML VIAL SC SCH (21:26)
[2019-11-01] VITALS (8 sets, daily range): BP systolic 114–134; BP diastolic 42–77
--- NOTE | 2019-11-01 04:14 | NUR ---
Dr. Ahsan Lehman here to see patient. No verbal orders received at this time.
[2019-11-01] MEDS: HYDROCODONE/APAP 10MG-325MG TAB PO PRN ×4 (04:21→18:40)
[2019-11-01] MEDS: MECLIZINE HCL 12.5 MG TAB PO SCH ×3 (05:16→21:41)
[2019-11-01] MEDS: PIPER-TAZ 3.375 GM 50 ML IV SCH ×3 (05:16→21:41)
[2019-11-01 06:49] LABS: BASOPHILS % 0.4 % (0.0-1.0); EOSINOPHILS # (AUTO) 0.3 (0.0-0.4); EOSINOPHILS % 5.9 % (0.0-6.0); HEMATOCRIT 36.8 % (34.2-44.1); LYMPHOCYTES # (AUTO) 2.2 (1.0-3.2); MEAN CORPUSCULAR HEMOGLOBIN 30.4 pg (28-32); MEAN CORPUSCULAR HGB CONC 32.6 g/dL (31-35); MEAN CORPUSCULAR VOLUME 93.2 fL (81-99); MONOCYTES # (AUTO) 0.5 (0.2-0.8); MONOCYTES % 8.6 % (4.4-11.3); NEUTROPHILS # (AUTO) 2.4 (2.1-6.9); NEUTROPHILS % 43.7 % (38.7-80.0); PLATELET COUNT 229 x10e3/uL (140-360); RED BLOOD COUNT 3.95 x10e6/uL (3.6-5.1)
[2019-11-01 06:58] LABS: INR 2.74; PROTHROMBIN TIME 30.3 seconds (11.9-14.5)
[2019-11-01] MEDS: INSULIN REGULAR, HUMAN 100 UNIT/1 ML 3ML VIAL SQ SCH ×4 (07:30→20:29)
[2019-11-01] MEDS: PANTOPRAZOLE 40 MG 10ML VIAL IV SCH (08:11)
[2019-11-01] MEDS: METOCLOPRAMIDE HCL 10 MG TAB PO SCH ×4 (08:11→21:41)
[2019-11-01] MEDS: HYDROCORTISONE ACETATE 25 MG/SUPP.RECT SUPP RC SCH ×4 (08:11→17:00)
[2019-11-01] MEDS: SERTRALINE HCL 50 MG TAB PO SCH (08:11)
[2019-11-01] MEDS: PHENYTOIN SODIUM EXT REL 100 MG CAP PO SCH ×2 (08:11→21:41)
[2019-11-01] MEDS: SENNOSIDES 8.6 MG TAB PO SCH ×2 (08:11→17:30)
[2019-11-01] MEDS: PAROXETINE HCL 20 MG TAB PO SCH (08:11)
[2019-11-01] MEDS: PHENOBARBITAL 30 MG TAB PO SCH ×2 (08:11→17:30)
[2019-11-01] MEDS: MAGNESIUM OXIDE 400 MG TAB PO SCH (08:11)
[2019-11-01] MEDS: DICYCLOMINE HCL 10 MG CAP PO SCH ×3 (08:11→21:41)
--- NOTE | 2019-11-01 13:47 | NUR ---
Nutrition Screen Note RD Recommendation for Physician: Continue diet as ordered Plan of Care: RD following, monitoring for tolerance and adequacy Nutrition reason for involvement: LOS Primary Diagnose(s): Abdominal pain fever, pneumonia Ht: 63in Wt:183lb BMI:32.4 kg/m2 IBW:115lb RD Assessment:(11/01/2019) Initial encounter with patient. Pt is allergic to peanuts and pecans. Pt reports a good PO intake. Pt denies any nausea, vomiting or difficulty chewing or swallowing. No significant wt changes. Current Diet: 1800 ADA Malnutrition Evaluation (11/01/2019) The patient does not meet criteria for a specified degree of malnutrition at this time. Will re-evaluate at follow-up as appropriate. Diet Education Needs Assessment: Diet education not indicated. Diet Adequacy: Meeting calorie needs, Meeting protein needs, Meeting fluid needs Tolerance: Tolerating PO Nutrition Care Level: Alan Rome RD,LD,CNSC
[2019-11-01] MEDS: WARFARIN SOD 5 MG TAB PO SCH (17:30)
--- NOTE | 2019-11-01 19:00 | NUR ---
Resumed care of patient. Patient awake and resting in bed, no s/s of distress at this time. All safety measures in place.
[2019-11-01] MEDS: INSULIN GLARGINE 100 UNITS/ML VIAL SC SCH (21:41)
--- NOTE | 2019-11-01 23:07 | NUR ---
Dr. Ahsan Lehman here to see patient. No new orders received at this time.
[2019-11-02] VITALS (8 sets, daily range): BP systolic 104–131; BP diastolic 60–75
[2019-11-02] MEDS: PIPER-TAZ 3.375 GM 50 ML IV SCH ×3 (05:18→21:43)
[2019-11-02] MEDS: PANTOPRAZOLE 40 MG 10ML VIAL IV SCH (05:18)
[2019-11-02] MEDS: MECLIZINE HCL 12.5 MG TAB PO SCH ×3 (05:18→21:43)
[2019-11-02] MEDS: HYDROCODONE/APAP 10MG-325MG TAB PO PRN ×4 (05:20→21:43)
[2019-11-02 06:04] LABS: INR 3.12; PROTHROMBIN TIME 33.6 seconds (11.9-14.5)
--- NOTE | 2019-11-02 07:16 | NUR ---
Bedside report given to oncoming nurse. Patient in stable condition, no s/s of distress at this time. All safety measures in place.
[2019-11-02] MEDS: INSULIN REGULAR, HUMAN 100 UNIT/1 ML 3ML VIAL SQ SCH ×4 (07:30→21:00)
[2019-11-02] MEDS: HYDROCORTISONE ACETATE 25 MG/SUPP.RECT SUPP RC SCH ×2 (07:42→16:02)
[2019-11-02] MEDS: PHENOBARBITAL 30 MG TAB PO SCH ×2 (07:42→17:36)
[2019-11-02] MEDS: METOCLOPRAMIDE HCL 10 MG TAB PO SCH ×4 (07:42→21:43)
[2019-11-02] MEDS: DICYCLOMINE HCL 10 MG CAP PO SCH ×3 (07:42→21:43)
[2019-11-02] MEDS: PHENYTOIN SODIUM EXT REL 100 MG CAP PO SCH ×2 (07:42→21:43)
[2019-11-02] MEDS: SERTRALINE HCL 50 MG TAB PO SCH (07:42)
[2019-11-02] MEDS: PAROXETINE HCL 20 MG TAB PO SCH (07:42)
[2019-11-02] MEDS: MAGNESIUM OXIDE 400 MG TAB PO SCH (07:42)
[2019-11-02] MEDS: SENNOSIDES 8.6 MG TAB PO SCH ×2 (07:42→17:36)
--- NOTE | 2019-11-02 19:00 | NUR ---
Resumed care of patient. Patient awake and resting in bed, no s/s of distress at this time. All safety measures in place.
[2019-11-02] MEDS: INSULIN GLARGINE 100 UNITS/ML VIAL SC SCH (21:00)
[2019-11-02] MEDS ORDERED: COLESTIPOL HCL 1 G TAB PO STA (23:24)
[2019-11-03] VITALS: BP 117/76
[2019-11-03 04:00] VITALS: BP 110/56
[2019-11-03] MEDS: HYDROCODONE/APAP 10MG-325MG TAB PO PRN ×2 (04:08→08:54)
[2019-11-03] MEDS: MECLIZINE HCL 12.5 MG TAB PO SCH (05:21)
[2019-11-03] MEDS: PANTOPRAZOLE 40 MG 10ML VIAL IV SCH (05:21)
[2019-11-03] MEDS: PIPER-TAZ 3.375 GM 50 ML IV SCH (05:21)
[2019-11-03 06:07] LABS: INR 2.84; PROTHROMBIN TIME 31.2 seconds (11.9-14.5)
[2019-11-03 06:20] LABS: ANION GAP 11.8 mmol/L (8-16); BLOOD UREA NITROGEN 7 mg/dL (7-26); BUN/CREATININE RATIO 9 (6-25); CALCIUM 8.5 mg/dL (8.4-10.2); CARBON DIOXIDE 31 mmol/L (22-29); CHLORIDE 100 mmol/L (98-107); CREATININE, SERUM 0.74 mg/dL (0.57-1.11); EST GLOMERULAR FILTRATION RATE > 60 ML/MIN (60-); GLUCOSE 82 mg/dL (74-118); POTASSIUM 3.8 mmol/L (3.5-5.1); SODIUM 139 mmol/L (136-145)
[2019-11-03] MEDS: INSULIN REGULAR, HUMAN 100 UNIT/1 ML 3ML VIAL SQ SCH ×2 (07:30→11:30)
[2019-11-03 08:00] VITALS: BP 110/66
[2019-11-03 08:30] VITALS: BP 110/66
[2019-11-03] MEDS: PHENOBARBITAL 30 MG TAB PO SCH (08:46)
[2019-11-03] MEDS: METOCLOPRAMIDE HCL 10 MG TAB PO SCH ×2 (08:46→12:30)
[2019-11-03] MEDS: DICYCLOMINE HCL 10 MG CAP PO SCH (08:46)
[2019-11-03] MEDS: PHENYTOIN SODIUM EXT REL 100 MG CAP PO SCH (08:46)
[2019-11-03] MEDS: PAROXETINE HCL 20 MG TAB PO SCH (08:47)
[2019-11-03] MEDS: MAGNESIUM OXIDE 400 MG TAB PO SCH (08:47)
[2019-11-03] MEDS: SERTRALINE HCL 50 MG TAB PO SCH (08:47)
[2019-11-03] MEDS: SENNOSIDES 8.6 MG TAB PO SCH (08:47)
[2019-11-03] MEDS: HYDROCORTISONE ACETATE 25 MG/SUPP.RECT SUPP RC SCH (08:47)
[2019-11-03] MEDS ORDERED: COLESTIPOL HCL 1 G TAB PO SCH (09:00)
--- NOTE | 2019-11-03 09:47 | NUR ---
PATIENT INFORMED OF DISCHARGE TODAY. PATIENT STATES, "I CALLED MY DAUGHTER AND SHE WILL NOT BE ABLE TO PICK ME UP UNTIL 1PM. THAT'S WHAT TIME SHE GETS OUT FOR LUNCH." DISCHARGE PAPERWORK PRINTED. CHARGE NURSE NOTIFIED OF WAITING PERIOD.
--- NOTE | 2019-11-03 10:54 | NUR ---
IMM LETTER EXPLAINED TO PT. PT VERBALIZED UNDERSTANDING. IMM LETTER SIGNED. COPY TO PT AND COPY TO CHART.
[2019-11-03 12:00] VITALS: BP 112/64
[2019-11-03] MEDS ORDERED: ONDANSETRON HCL 4 MG ORAL DISINTEGRATING TAB PO PRN (13:00)
[2019-11-03] MEDS ORDERED: HEPARIN 500 UNITS/5ML MDV INJ ONE (13:20)
--- NOTE | 2019-11-03 13:37 | NUR ---
PORT-A-CATH TO LEFT SUBCLAVIAN NOW DE-ACCESSED.
--- NOTE | 2019-11-03 19:57 | Discharge Summary ---
[employer] ARCHITECT: Dr. Jordan Lehman. FINAL DIAGNOSES: 1. Severe sepsis on admission, associated with lactic acidosis and fever. 2. Urinary tract infection with bacteremia for gram-negative rods, Klebsiella oxytoca. 3. Melena and abdominal pain, status post EGD with esophageal dilatation. Status post diarrhea. Status post rectal bleed, has hemorrhoids. Arteriovenous malformation of the ascending colon. Internal hemorrhoids. Transverse polyps. Diverticulosis. Gastritis on EGD. 4. 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 Hemoglobin and hematocrit are stable. 5. Chronic abdominal pain and osteoarthritic pain. SUMMARY: The patient is a 64-year-old female, came to the hospital with abdominal pain and urinary tract infection with fever, positive elevated lactic acid. The patient had severe sepsis on admission, meeting criteria. The patient was placed on IV antibiotics, but she has also complained of some rectal bleed with some bloody stool. However, her hemoglobin and hematocrit remained stable throughout her hospitalization. The patient was also on anticoagulant therapy, but she stopped the medication warfarin prior to admission. Urinalysis showed many bacteria, leukocyte esterase, wbc, 3+ blood. The patient was placed on antibiotics. CT abdomen and pelvis was done. Chest showed conspicuous 4 mm right lower lobe ground-glass lung nodule. Follow up in 6 months. Discussed with the patient. No acute inflammatory process in the abdomen or pelvis. Hepatic steatosis. The patient's lab work; lactic acid level was 3.9 on admission. On subsequent treatment with IV fluids and antibiotic, lactic acid went down to 1.3. Her anticoagulant therapy is resumed. She is therapeutic. Blood culture grew out Klebsiella oxytoca. The repeat blood culture on October 30 was negative. The patient has no leukocytosis and no fever. She is doing much better now. She is stable. Urinating without any problem. The patient's pathology showed no malignancy. There is reactive esophagitis. There is a tubular adenoma of the transverse colon polyp, that was removed. The patient is stable. She does not have any more rectal bleed. The patient is comfortable. WBC is 5.4, hemoglobin 12, hematocrit 36, and platelets 225. Chemistry; sodium 139, potassium 3.8, chloride 100, bicarb 31, BUN is 7, creatinine 0.7, glucose 82. INR is 2.8. Repeat blood culture on October 30 was negative. The patient is stable, discharged home today. Discharged home with Cipro 500 mg twice a day for 10 days. The patient will resume all home medications. She will follow up with primary care physician within a week. The patient will follow up with Dr. Jordan Lehman as an outpatient. The patient's Port-A-Cath will be packed with heparin as planned. MD EVERARDO Morin/MACO /[id number]
== END 2019-11-03 14:15 | disposition home or self-care (01) | DRG 871 ==
LOC: ER 01:45 → ERHOLD 06:34 → MED/SURG3 08:21
PROVIDERS: ADMIT Internal Medicine; ATTEND Internal Medicine
PROC: 0DB68ZX Excision of Stomach, Via Natural or Artificial Opening Endoscopic, Diagnostic (ICD-10-PCS; 2019-10-28)
PROC: 0DB48ZX Excision of Esophagogastric Junction, Via Natural or Artificial Opening Endoscopic, Diagnostic (ICD-10-PCS; 2019-10-28)
PROC: 0D758ZZ Dilation of Esophagus, Via Natural or Artificial Opening Endoscopic (ICD-10-PCS; 2019-10-28)
PROC: 0DBL8ZX Excision of Transverse Colon, Via Natural or Artificial Opening Endoscopic, Diagnostic (ICD-10-PCS; 2019-10-28)
PROC: 0D5K8ZZ Destruction of Ascending Colon, Via Natural or Artificial Opening Endoscopic (ICD-10-PCS; 2019-10-28)
PROC: 0JWT3WZ Revision of Totally Implantable Vascular Access Device in Trunk Subcutaneous Tissue and Fascia, Percutaneous Approach (ICD-10-PCS; principal; 2019-10-28 15:00)
PROC: 0DB98ZX Excision of Duodenum, Via Natural or Artificial Opening Endoscopic, Diagnostic (ICD-10-PCS; 2019-10-28 15:00)
DX: A41.59 Other Gram-negative sepsis (principal); J15.9 Unspecified bacterial pneumonia; K55.21 Angiodysplasia of colon with hemorrhage; N39.0 Urinary tract infection, site not specified; K62.5 Hemorrhage of anus and rectum; T82.524A Displacement of infusion catheter, initial encounter; E87.2 Acidosis; E11.9 Type 2 diabetes mellitus without complications; J44.9 Chronic obstructive pulmonary disease, unspecified; R65.20 Severe sepsis without septic shock; I25.10 Atherosclerotic heart disease of native coronary artery without angina pectoris; B96.1 Klebsiella pneumoniae [K. pneumoniae] as the cause of diseases classified elsewhere; K20.9 Esophagitis, unspecified; K31.84 Gastroparesis; K29.70 Gastritis, unspecified, without bleeding; K44.9 Diaphragmatic hernia without obstruction or gangrene; K57.30 Diverticulosis of large intestine without perforation or abscess without bleeding; K64.8 Other hemorrhoids; I11.0 Hypertensive heart disease with heart failure; I50.9 Heart failure, unspecified; G40.909 Epilepsy, unspecified, not intractable, without status epilepticus; I25.2 Old myocardial infarction; Z95.5 Presence of coronary angioplasty implant and graft; Z88.8 Allergy status to other drugs, medicaments and biological substances; Z86.711 Personal history of pulmonary embolism; Z86.718 Personal history of other venous thrombosis and embolism; Z88.1 Allergy status to other antibiotic agents; Z85.038 Personal history of other malignant neoplasm of large intestine; Z91.018 Allergy to other foods; Z91.010 Allergy to peanuts; D12.3 Benign neoplasm of transverse colon; Z11.59 Encounter for screening for other viral diseases; Z79.4 Long term (current) use of insulin
CPT/HCPCS: 36415; 36598; 43239; 45378; 71250; 74177; 74470; 80048; 80053; 81001; 82550; 82553; 82948; 83036; 83605; 84443; 84484; 85025; 85610; 85730; 87040; 87071; 87086; 87186; 87205; 88305; 88312; 96361; 96372; 99284; J1650; J1815; J1817; J2001; J2250; J2270; J2405; J2543; J2765; J7030; J7050; Q0162; Q9967; U0002